=== PATIENT | male | born 1950 | race Asian ===

== ENCOUNTER 2021-01-25 12:44 | Outpatient (REF) | payer MEDICARE, SELFPAY ==
[2021-01-25 13:29] LABS: MANUAL DIFF FLAG NO
[2021-01-25 13:31] LABS: Basophils Percent Auto 0.5 % (0-2); Eosinophils Absolute Auto 0.3 X10*3/uL (0.0-0.4); Eosinophils Percent Auto 7.3 % (0-4); Hematocrit 38.9 % (42-52); Hemoglobin 12.7 g/dl (14.0-18.0); Imm Gran Abs Auto 0.01 X10*3/uL (0.00-0.03); Imm Gran Pct Auto 0.3 % (0.0-0.4); Lymphocytes Absolute Auto 1.2 X10*3/uL (1.2-4.9); Mean Corpuscular HGB Conc 32.6 g/dl (31.0-36.0); Mean Corpuscular Hemoglobin 28.6 pg (27.0-33.0); Mean Corpuscular Volume 87.6 fL (80-98); Monocytes Absolute Auto 0.4 X10*3/uL (0.1-1.2); Monocytes Percent Auto 9.5 % (2-11); Neutrophils Absolute Auto 1.8 X10*3/uL (2.0-8.3); Neutrophils Percent Auto 49.4 % (45-73); Platelet Count 177 X10*3/uL (160-400); Red Blood Count 4.44 X10*6/uL (4.60-5.80); Red Cell Distribution Width 13.7 % (11.0-16.0); White Blood Count 3.7 X10*3/uL (4.8-10.8)
[2021-01-25 13:53] LABS: Alanine Aminotransferase 31 U/L (0-40); Albumin Level 4.3 g/dL (3.5-5.0); Alkaline Phosphatase 74 U/L (39-117); Anion Gap 10 (12-20); Aspartate Amino Transferase 28 U/L (5-37); Bilirubin Total 0.4 mg/dL (0.0-1.0); Blood Urea Nitrogen 16 mg/dL (9-16); Calcium 9.3 mg/dL (8.4-10.2); Carbon Dioxide 28 mmol/L (22-29); Chloride 109 mmol/L (96-108); Cholesterol 119 mg/dL; Estimated Glomerular Filt Rate > 60; Glucose Fasting 97 mg/dL (60-99); HDL Cholesterol 46 mg/dL; LDL Cholesterol Calculated 54 mg/dl; Potassium 4.5 mmol/L (3.3-5.1); Sodium 142 mmol/L (135-145); Total Protein 6.7 g/dL (6.5-8.0); Triglycerides 98 mg/dL
[2021-01-25 14:00] LABS: Glucose Urine UA NEG (NEG); Leukocyte Esterase Urine NEG (NEG); Nitrite Urine NEG (NEG); Specific Gravity - Urine 1.025 (1.005-1.025); Urine Blood NEG (NEG); Urine Ketones NEG (NEG); Urine Protein NEG (NEG-TRACE)
[2021-01-25 14:03] LABS: Appearance Urine CLEAR; Color Urine YELLOW
[2021-01-25 14:14] LABS: TSH reflex Free T4 1.52 uIU/mL (0.32-4.0)
[2021-01-25 14:16] LABS: Creatinine Urine 157.28 mg/dL; Microalbum/Creatinine Ratio Ur 19.7 ug/mg cr
== END 2021-01-25 12:45 | disposition home or self-care (01) ==
LOC: HO.WFDLDS 12:44
PROVIDERS: PCP Family Medicine; Visit Provider Family Medicine
DX: Z00.00 Encounter for general adult medical examination without abnormal findings (principal); I10 Essential (primary) hypertension
CPT/HCPCS: 36415; 80053; 80061; 81003; 82043; 84443; 85025

== ENCOUNTER 2021-03-31 14:23 | Outpatient (REF) | payer MEDICARE, SELFPAY ==
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
== END 2021-03-31 14:24 | disposition home or self-care (01) ==
LOC: HO.SH 14:23
PROVIDERS: Visit Provider Family Medicine
DX: H90.3 Sensorineural hearing loss, bilateral (principal); H93.13 Tinnitus, bilateral
CPT/HCPCS: 92557; 92567

== ENCOUNTER 2021-05-25 12:25 | Outpatient (REF) | payer MEDICARE, SELFPAY ==
[2021-05-25 13:55] LABS: MANUAL DIFF FLAG NO
[2021-05-25 13:59] LABS: Basophils Percent Auto 0.5 % (0-2); Eosinophils Absolute Auto 0.2 X10*3/uL (0.0-0.4); Hematocrit 42.8 % (42-52); Hemoglobin 13.5 g/dl (14.0-18.0); Imm Gran Abs Auto 0.01 X10*3/uL (0.00-0.03); Imm Gran Pct Auto 0.2 % (0.0-0.4); Lymphocytes Absolute Auto 1.4 X10*3/uL (1.2-4.9); Lymphocytes Percent Auto 33.3 % (20-40); Mean Corpuscular HGB Conc 31.5 g/dl (31.0-36.0); Mean Corpuscular Hemoglobin 28.2 pg (27.0-33.0); Mean Corpuscular Volume 89.5 fL (80-98); Mean Platelet Volume 10.1 fL (9.4-12.4); Monocytes Absolute Auto 0.5 X10*3/uL (0.1-1.2); Monocytes Percent Auto 11.2 % (2-11); Neutrophils Absolute Auto 2.1 X10*3/uL (2.0-8.3); Neutrophils Percent Auto 50.8 % (45-73); Platelet Count 252 X10*3/uL (160-400); Red Blood Count 4.78 X10*6/uL (4.60-5.80); Red Cell Distribution Width 13.7 % (11.0-16.0); White Blood Count 4.2 X10*3/uL (4.8-10.8)
[2021-05-25 14:49] LABS: Prostate Specific Antigen Scr 2.33 ng/mL (<0.05-4.0)
== END 2021-05-25 12:26 | disposition home or self-care (01) ==
LOC: HO.WFDLDS 12:25
PROVIDERS: Visit Provider Family Medicine
DX: Z00.00 Encounter for general adult medical examination without abnormal findings (principal); Z12.5 Encounter for screening for malignant neoplasm of prostate; G25.0 Essential tremor; E55.9 Vitamin D deficiency, unspecified; D64.9 Anemia, unspecified
CPT/HCPCS: 36415; 82306; 84153; 85025

== ENCOUNTER 2021-07-22 12:34 | Outpatient (REF) | payer MEDICARE, SELFPAY ==
[2021-07-22 13:59] LABS: MANUAL DIFF FLAG NO
[2021-07-22 14:03] LABS: Basophils Percent Auto 0.8 % (0-2); Eosinophils Absolute Auto 0.2 X10*3/uL (0.0-0.4); Eosinophils Percent Auto 4.2 % (0-4); Hemoglobin 13.4 g/dl (14.0-18.0); Imm Gran Abs Auto 0.01 X10*3/uL (0.00-0.03); Imm Gran Pct Auto 0.2 % (0.0-0.4); Lymphocytes Absolute Auto 1.2 X10*3/uL (1.2-4.9); Lymphocytes Percent Auto 23.7 % (20-40); Mean Corpuscular HGB Conc 32.7 g/dl (31.0-36.0); Mean Corpuscular Hemoglobin 29.6 pg (27.0-33.0); Mean Corpuscular Volume 90.5 fL (80.0-98.0); Mean Platelet Volume 10.4 fL (9.4-12.4); Monocytes Absolute Auto 0.5 X10*3/uL (0.1-1.2); Monocytes Percent Auto 9.8 % (2-11); Neutrophils Absolute Auto 3.2 x10*3/uL (2.0-8.3); Neutrophils Percent Auto 61.3 % (45-73); Platelet Count 186 X10*3/uL (160-400); Red Blood Count 4.53 X10*6/uL (4.60-5.80); Red Cell Distribution Width 13.9 % (11.0-16.0); White Blood Count 5.2 X10*3/uL (4.8-10.8)
[2021-07-22 14:49] LABS: Vitamin D 25-OH Total 46.5 ng/mL (>30)
== END 2021-07-22 12:35 | disposition home or self-care (01) ==
LOC: HO.WFDLDS 12:34
PROVIDERS: Visit Provider Family Medicine
DX: Z00.00 Encounter for general adult medical examination without abnormal findings (principal); E55.9 Vitamin D deficiency, unspecified
CPT/HCPCS: 36415; 82306; 85025

== ENCOUNTER 2021-10-05 14:43 | Outpatient (REF) | payer MEDICARE, SELFPAY ==
--- NOTE | ~2021-10-05 | XR_ITS ---
EXAMINATION: XR RIBS, RIGHT CLINICAL INFORMATION: Pleurodynia COMPARISON: None TECHNIQUE: 4 views of the right ribs were obtained. FINDINGS: No focal consolidation. No pneumothorax. Trachea is midline. Cardiac mediastinal silhouette is not enlarged. No large pleural effusion. Atherosclerotic calcifications of the aorta. Soft tissues are unremarkable. Right chest wall electronic device with leads coursing cranially likely representing deep brain stimulator. Degenerative changes of the thoracolumbar spine. No acute visualized right-sided rib fractures. Surgical anchor in the right humeral head. Severe degenerative changes of the right glenohumeral joint. XR/XR ribs RT min 3V w CXR1V IMPRESSION: 1. No acute cardiac pulmonary process. 2. No acute visualize right-sided rib fractures.
== END 2021-10-05 14:44 | disposition home or self-care (01) ==
LOC: HO.XRAY 14:43
PROVIDERS: PCP Family Medicine; Visit Provider Hospitalist
DX: R07.81 Pleurodynia (principal); Z91.81 History of falling
CPT/HCPCS: 71101

== ENCOUNTER 2022-03-02 11:16 | Outpatient (REF) | payer MEDICARE, SELFPAY ==
[2022-03-02 14:03] LABS: MANUAL DIFF FLAG NO
[2022-03-02 14:07] LABS: Basophils Percent Auto 0.7 % (0-2); Eosinophils Absolute Auto 0.1 X10*3/uL (0.0-0.4); Eosinophils Percent Auto 3.2 % (0-4); Hemoglobin 13.6 g/dl (14.0-18.0); Imm Gran Abs Auto 0.01 X10*3/uL (0.00-0.03); Imm Gran Pct Auto 0.2 % (0.0-0.4); Lymphocytes Percent Auto 24.6 % (20-40); Mean Corpuscular HGB Conc 33.2 g/dl (31.0-36.0); Mean Corpuscular Hemoglobin 30.1 pg (27.0-33.0); Mean Corpuscular Volume 90.7 fL (80.0-98.0); Mean Platelet Volume 10.6 fL (9.4-12.4); Monocytes Absolute Auto 0.4 X10*3/uL (0.1-1.2); Monocytes Percent Auto 10.7 % (2-11); Neutrophils Absolute Auto 2.4 x10*3/uL (2.0-8.3); Neutrophils Percent Auto 60.6 % (45-73); Platelet Count 179 X10*3/uL (160-400); Red Blood Count 4.52 X10*6/uL (4.60-5.80); Red Cell Distribution Width 13.2 % (11.0-16.0)
[2022-03-02 14:42] LABS: Alanine Aminotransferase 25 U/L (0-40); Albumin Level 4.3 g/dL (3.5-5.0); Alkaline Phosphatase 72 U/L (39-117); Anion Gap 10 (12-20); Aspartate Amino Transferase 24 U/L (5-37); Bilirubin Total 0.6 mg/dL (0.0-1.0); Blood Urea Nitrogen 22 mg/dL (9-16); Calcium 9.1 mg/dL (8.4-10.2); Carbon Dioxide 27 mmol/L (22-29); Chloride 107 mmol/L (96-108); Cholesterol 138 mg/dL; Estimated Glomerular Filt Rate > 60; Glucose Fasting 76 mg/dL (60-99); HDL Cholesterol 48 mg/dL; Iron 87 mcg/dL (45-160); LDL Cholesterol Calculated 71 mg/dl; Percent Iron Saturation 24 % (15-50); Potassium 4.1 mmol/L (3.3-5.1); Sodium 140 mmol/L (135-145); Total Iron Binding Capacity 363 mcg/dL (228-428); Total Protein 6.8 g/dL (6.5-8.0); Triglycerides 95 mg/dL; Unsaturated Iron Binding 276 ug/dL
[2022-03-02 15:02] LABS: Ferritin 12 ng/mL (20-250)
[2022-03-02 15:15] LABS: Folate 17.8 ng/mL (> or = 4.0); Vitamin B12 1095 pg/mL (200-900)
== END 2022-03-02 11:17 | disposition home or self-care (01) ==
LOC: HO.WFDLDS 11:16
PROVIDERS: Visit Provider Nurse Practitioner Family
DX: Z00.00 Encounter for general adult medical examination without abnormal findings (principal); E66.3 Overweight; D64.9 Anemia, unspecified
CPT/HCPCS: 36415; 80053; 80061; 82607; 82728; 82746; 83540; 85025

== ENCOUNTER 2022-03-24 11:24 | Outpatient (REF) | payer MEDICARE, SELFPAY ==
[2022-03-24 14:33] LABS: MANUAL DIFF FLAG NO
[2022-03-24 14:43] LABS: Basophils Percent Auto 0.7 % (0-2); Eosinophils Absolute Auto 0.2 X10*3/uL (0.0-0.4); Eosinophils Percent Auto 3.9 % (0-4); Hematocrit 41.8 % (42.0-52.0); Hemoglobin 13.5 g/dl (14.0-18.0); Immature Retic Fraction 12.5 % (2.3-13.4); Lymphocytes Absolute Auto 1.2 X10*3/uL (1.2-4.9); Lymphocytes Percent Auto 26.4 % (20-40); Mean Corpuscular HGB Conc 32.3 g/dl (31.0-36.0); Mean Corpuscular Hemoglobin 29.5 pg (27.0-33.0); Mean Corpuscular Volume 91.3 fL (80.0-98.0); Mean Platelet Volume 10.6 fL (9.4-12.4); Monocytes Absolute Auto 0.5 X10*3/uL (0.1-1.2); Neutrophils Absolute Auto 2.7 x10*3/uL (2.0-8.3); Platelet Count 186 X10*3/uL (160-400); Red Blood Count 4.58 X10*6/uL (4.60-5.80); Red Cell Distribution Width 13.3 % (11.0-16.0); Retic HGB Equivalent 36.4 pg (30.0-35.0); Reticulocyte Percent 0.9 % (0.5-1.8); Reticulocytes Absolute 0.043 X10*6/uL (0.026-0.095); White Blood Count 4.6 X10*3/uL (4.8-10.8)
== END 2022-03-24 11:25 | disposition home or self-care (01) ==
LOC: HO.WFDLDS 11:24
PROVIDERS: Visit Provider Family Medicine
DX: Z00.00 Encounter for general adult medical examination without abnormal findings (principal); D64.9 Anemia, unspecified
CPT/HCPCS: 36415; 85025; 85045

== ENCOUNTER → 2022-04-06 14:59 | Outpatient (BNV) | payer MEDICARE, SELFPAY | PROVIDERS: PCP Family Medicine; Referring Provider Family Medicine; Visit Provider Internal Medicine | DX: D64.9 Anemia, unspecified (principal) | CPT/HCPCS: 99203; 99213 ==

== ENCOUNTER 2022-08-03 12:25 | Outpatient (REF) | payer MEDICARE, SELFPAY ==
[2022-08-03 15:38] LABS: Influenza A PCR NEGATIVE (Negative); Influenza B PCR NEGATIVE (Negative); Resp Syncy Virus RNA Qual PCR NEGATIVE (Negative); SARS COV2 PCR INHOUSE NEGATIVE (Negative)
== END 2022-08-03 12:26 | disposition home or self-care (01) ==
LOC: HO.LAB 12:25
PROVIDERS: Visit Provider Family Medicine
DX: Z20.822 Contact with and (suspected) exposure to COVID-19 (principal); R09.89 Other specified symptoms and signs involving the circulatory and respiratory systems
CPT/HCPCS: 0241U

== ENCOUNTER 2022-08-17 16:02 | Outpatient (REF) | payer MEDICARE, SELFPAY ==
[2022-08-18 12:57] LABS: Influenza A PCR NEGATIVE (Negative); Influenza B PCR NEGATIVE (Negative); Resp Syncy Virus RNA Qual PCR NEGATIVE (Negative); SARS COV2 PCR INHOUSE NEGATIVE (Negative)
== END 2022-08-17 16:03 | disposition home or self-care (01) ==
LOC: HO.LAB 16:02
PROVIDERS: Visit Provider Family Medicine
DX: Z20.822 Contact with and (suspected) exposure to COVID-19 (principal)
CPT/HCPCS: 0241U

== ENCOUNTER 2022-12-12 12:46 | Outpatient (REF) | payer MEDICARE, SELFPAY ==
--- NOTE | ~2022-12-12 | XR_ITS ---
EXAMINATION: 1. STANDING AP RADIOGRAPHS OF BOTH KNEES 2. LATERAL AND PATELLAR SUNRISE RADIOGRAPHS OF THE RIGHT KNEE CLINICAL INFORMATION: Pain COMPARISON: None TECHNIQUE: Standing AP radiographs of both knees were obtained in addition to lateral and patellar sunrise views of the right knee. FINDINGS: Patient is status post right total knee arthroplasty. Components are in expected orientation. There is no periprosthetic fracture identified. No right-sided suprapatellar joint effusion noted. AP view of the left knee demonstrates mild narrowing of the medial and lateral joint space heights and mild chondrocalcinosis. XR/XR knee RT 2V IMPRESSION: 1. Unremarkable post arthroplasty radiographs of the right knee. 2. Mild degenerative changes of the left knee.
--- NOTE | ~2022-12-12 | XR_ITS ---
EXAMINATION: 1. STANDING AP RADIOGRAPHS OF BOTH KNEES 2. LATERAL AND PATELLAR SUNRISE RADIOGRAPHS OF THE RIGHT KNEE CLINICAL INFORMATION: Pain COMPARISON: None TECHNIQUE: Standing AP radiographs of both knees were obtained in addition to lateral and patellar sunrise views of the right knee. FINDINGS: Patient is status post right total knee arthroplasty. Components are in expected orientation. There is no periprosthetic fracture identified. No right-sided suprapatellar joint effusion noted. AP view of the left knee demonstrates mild narrowing of the medial and lateral joint space heights and mild chondrocalcinosis. XR/XR knee standing BI IMPRESSION: 1. Unremarkable post arthroplasty radiographs of the right knee. 2. Mild degenerative changes of the left knee.
== END 2022-12-12 12:47 | disposition home or self-care (01) ==
LOC: HO.HOSX 12:46
PROVIDERS: Visit Provider Orthopaedic Surgery
DX: M25.461 Effusion, right knee (principal); D36.10 Benign neoplasm of peripheral nerves and autonomic nervous system, unspecified; Z96.651 Presence of right artificial knee joint
CPT/HCPCS: 73560; 73565; 99202

== ENCOUNTER 2023-02-03 09:31 | Outpatient (REF) | payer MEDICARE, SELFPAY | END 2023-02-03 09:32 | disposition home or self-care (01) | LOC: HO.HOSX 09:31 | PROVIDERS: PCP Family Medicine; Visit Provider Orthopaedic Surgery | DX: M16.11 Unilateral primary osteoarthritis, right hip (principal); R20.2 Paresthesia of skin | CPT/HCPCS: 72170; 73501; 73502; 99212 ==

== ENCOUNTER 2023-02-27 14:27 | Outpatient (AMB) | payer MEDICARE, SELFPAY ==
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
[2023-02-27 14:31] VITALS: BP 133/69; PULSE 65; RESP 14; BMI 29.9
== END 2023-02-27 15:33 | disposition home or self-care (01) ==
PROVIDERS: PCP Family Medicine; Visit Provider Internal Medicine
DX: Z98.890 Other specified postprocedural states (principal); R20.0 Anesthesia of skin; M25.461 Effusion, right knee; Z96.651 Presence of right artificial knee joint; M25.561 Pain in right knee; R29.898 Other symptoms and signs involving the musculoskeletal system
CPT/HCPCS: 99204

== ENCOUNTER → 2023-02-27 14:27 | Outpatient (BNVA) | payer MEDICARE, SELFPAY | PROVIDERS: PCP Family Medicine; Visit Provider Internal Medicine | DX: M25.461 Effusion, right knee (principal); M25.561 Pain in right knee; R20.0 Anesthesia of skin; R29.898 Other symptoms and signs involving the musculoskeletal system; Z98.890 Other specified postprocedural states; Z96.651 Presence of right artificial knee joint | CPT/HCPCS: 99202 ==

== ENCOUNTER 2023-03-02 12:25 | Outpatient (AMB) | payer MEDICARE, SELFPAY ==
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
== END 2023-03-02 14:06 | disposition home or self-care (01) ==
PROVIDERS: PCP Family Medicine; Visit Provider Orthopaedic Surgery
DX: S82.001A Unspecified fracture of right patella, initial encounter for closed fracture (principal); Z96.651 Presence of right artificial knee joint; M16.11 Unilateral primary osteoarthritis, right hip; M25.461 Effusion, right knee; R20.0 Anesthesia of skin
CPT/HCPCS: 99213

== ENCOUNTER → 2023-03-02 12:25 | Outpatient (BNVA) | payer MEDICARE, SELFPAY | PROVIDERS: PCP Family Medicine; Visit Provider Orthopaedic Surgery ==

== ENCOUNTER 2023-03-06 15:54 | Outpatient (AMB) | payer MEDICARE, SELFPAY ==
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
[2023-03-06 16:09] VITALS: BP 116/58; PULSE 74; RESP 12; TEMP 36.9; O2SAT 97; BMI 29.6
== END 2023-03-06 17:05 | disposition home or self-care (01) ==
PROVIDERS: Visit Provider Family Medicine
DX: Z00.00 Encounter for general adult medical examination without abnormal findings (principal); K21.9 Gastro-esophageal reflux disease without esophagitis; I25.10 Atherosclerotic heart disease of native coronary artery without angina pectoris; Z98.890 Other specified postprocedural states; H91.93 Unspecified hearing loss, bilateral; M25.561 Pain in right knee
CPT/HCPCS: 99397

== ENCOUNTER 2023-03-13 11:47 | Outpatient (REF) | payer MEDICARE, SELFPAY ==
[2023-03-13 14:16] LABS: MANUAL DIFF FLAG NO
[2023-03-13 14:32] LABS: Basophils Percent Auto 1.2 % (0-2); Eosinophils Absolute Auto 0.2 X10*3/uL (0.0-0.4); Eosinophils Percent Auto 6.1 % (0-4); Hematocrit 41.2 % (42.0-52.0); Hemoglobin 13.6 g/dl (14.0-18.0); Lymphocytes Absolute Auto 1.2 X10*3/uL (1.2-4.9); Mean Corpuscular Hemoglobin 31.1 pg (27.0-33.0); Mean Corpuscular Volume 94.1 fL (80.0-98.0); Monocytes Absolute Auto 0.3 X10*3/uL (0.1-1.2); Monocytes Percent Auto 9.3 % (2-11); Neutrophils Absolute Auto 1.6 x10*3/uL (2.0-8.3); Neutrophils Percent Auto 47.4 % (45-73); Platelet Count 184 X10*3/uL (160-400); Red Blood Count 4.38 X10*6/uL (4.60-5.80); Red Cell Distribution Width 12.3 % (11.0-16.0); White Blood Count 3.4 X10*3/uL (4.8-10.8)
[2023-03-13 14:56] LABS: Alanine Aminotransferase 26 U/L (0-40); Alkaline Phosphatase 54 U/L (39-117); Anion Gap 9 (12-20); Aspartate Amino Transferase 24 U/L (5-37); Bilirubin Total 0.5 mg/dL (0.0-1.0); Blood Urea Nitrogen 23 mg/dL (9-16); Calcium 9.2 mg/dL (8.4-10.2); Carbon Dioxide 29 mmol/L (22-29); Chloride 106 mmol/L (96-108); Cholesterol 126 mg/dL; Estimated Glomerular Filt Rate > 60; Glucose Fasting 93 mg/dL (60-99); HDL Cholesterol 41 mg/dL; Iron 81 mcg/dL (45-160); LDL Cholesterol Calculated 66 mg/dl; Percent Iron Saturation 31 % (15-50); Sodium 140 mmol/L (135-145); Total Iron Binding Capacity 264 mcg/dL (228-428); Total Protein 6.5 g/dL (6.5-8.0); Triglycerides 97 mg/dL; Unsaturated Iron Binding 183 ug/dL
[2023-03-13 15:05] LABS: Appearance Urine Clear; Color Urine Yellow; Glucose Urine UA Negative (Negative); Leukocyte Esterase Urine Negative (Negative); Nitrite Urine Negative (Negative); PH 6.5 (5.0-9.0); Urine Blood Negative (Negative); Urine Ketones Negative (Negative); Urine Protein Negative (Neg-Trace)
[2023-03-13 15:06] LABS: TSH reflex Free T4 2.22 uIU/mL (0.32-4.0); Vitamin D 25-OH Total 62.3 ng/mL (>30)
[2023-03-13 15:22] LABS: Folate 11.6 ng/mL (> or = 4.0); Vitamin B12 703 pg/mL (200-900)
[2023-03-13 16:04] LABS: Creatinine Urine 170.46 mg/dL; Microalbum/Creatinine Ratio Ur 7.6 ug/mg cr
== END 2023-03-13 11:48 | disposition home or self-care (01) ==
LOC: HO.WFDLDS 11:47
PROVIDERS: Visit Provider Family Medicine
DX: Z00.00 Encounter for general adult medical examination without abnormal findings (principal); Z12.5 Encounter for screening for malignant neoplasm of prostate; E55.9 Vitamin D deficiency, unspecified; I10 Essential (primary) hypertension; E53.8 Deficiency of other specified B group vitamins; D64.9 Anemia, unspecified
CPT/HCPCS: 36415; 80053; 80061; 81003; 82043; 82306; 82607; 82746; 83540; 84153; 84443; 85025

== ENCOUNTER 2023-03-21 12:57 | Outpatient (AMB) | payer MEDICARE, SELFPAY ==
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
[2023-03-21 13:05] VITALS: BP 120/70; PULSE 62; RESP 20; TEMP 37.1; O2SAT 95; BMI 29.2
== END 2023-03-21 14:36 | disposition home or self-care (01) ==
PROVIDERS: PCP Family Medicine; Visit Provider Nurse Practitioner Family
DX: K12.0 Recurrent oral aphthae (principal); B35.6 Tinea cruris
CPT/HCPCS: 99213

== ENCOUNTER 2023-03-30 12:16 | Outpatient (REF) | payer MEDICARE, SELFPAY | END 2023-03-30 12:17 | disposition home or self-care (01) | LOC: HO.HOSX 12:16 | PROVIDERS: Visit Provider Orthopaedic Surgery | DX: Z13.89 Encounter for screening for other disorder (principal) ==

== ENCOUNTER 2023-03-30 16:19 | Outpatient (AMB) | payer MEDICARE, SELFPAY ==
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
[2023-03-30 16:25] VITALS: BP 116/68; PULSE 67; RESP 13; TEMP 36.2; O2SAT 98; BMI 28.8
== END 2023-03-30 17:18 | disposition home or self-care (01) ==
PROVIDERS: PCP Family Medicine; Visit Provider Family Medicine
DX: D64.9 Anemia, unspecified (principal); E78.5 Hyperlipidemia, unspecified; I25.10 Atherosclerotic heart disease of native coronary artery without angina pectoris; K59.00 Constipation, unspecified
CPT/HCPCS: 99213

== ENCOUNTER 2023-05-19 11:44 | Outpatient (AMB) | payer MEDICARE, SELFPAY ==
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
[2023-05-19 12:08] VITALS: BMI 28.8
== END 2023-05-19 12:43 | disposition home or self-care (01) ==
PROVIDERS: PCP Family Medicine; Visit Provider Orthopaedic Surgery
DX: M25.561 Pain in right knee (principal); M16.11 Unilateral primary osteoarthritis, right hip; M25.461 Effusion, right knee; R20.0 Anesthesia of skin
CPT/HCPCS: 99214

== ENCOUNTER 2023-05-19 11:44 | Outpatient (REF) | payer MEDICARE, SELFPAY ==
--- NOTE | ~2023-05-19 | XR_ITS ---
EXAMINATION: STANDING AP RADIOGRAPHS OF BOTH KNEES LATERAL AND PATELLAR SUNRISE RADIOGRAPHS OF THE RIGHT KNEE CLINICAL INFORMATION: Pain COMPARISON: 12/12/2022 TECHNIQUE: Standing AP radiographs of both knees were obtained in addition to lateral and patellar sunrise views of the right knee. FINDINGS: Status post right total knee arthroplasty. Hardware appears intact. Alignment maintained. Mild degenerative changes in the medial and lateral compartments of the left knee again seen with joint space narrowing and chondrocalcinosis. Small right joint effusion. XR/XR knee RT 2V IMPRESSION: Status post right total knee arthroplasty. Hardware appears intact. Mild degenerative changes left knee. Small right joint effusion.
--- NOTE | ~2023-05-19 | XR_ITS ---
EXAMINATION: STANDING AP RADIOGRAPHS OF BOTH KNEES LATERAL AND PATELLAR SUNRISE RADIOGRAPHS OF THE RIGHT KNEE CLINICAL INFORMATION: Pain COMPARISON: 12/12/2022 TECHNIQUE: Standing AP radiographs of both knees were obtained in addition to lateral and patellar sunrise views of the right knee. FINDINGS: Status post right total knee arthroplasty. Hardware appears intact. Alignment maintained. Mild degenerative changes in the medial and lateral compartments of the left knee again seen with joint space narrowing and chondrocalcinosis. Small right joint effusion. XR/XR knee standing BI IMPRESSION: Status post right total knee arthroplasty. Hardware appears intact. Mild degenerative changes left knee. Small right joint effusion.
== END 2023-05-19 11:45 | disposition home or self-care (01) ==
LOC: HO.HOSX 11:44
PROVIDERS: PCP Family Medicine; Visit Provider Orthopaedic Surgery
DX: T84.84XA Pain due to internal orthopedic prosthetic devices, implants and grafts, initial encounter (principal); M25.461 Effusion, right knee; R20.0 Anesthesia of skin; M16.11 Unilateral primary osteoarthritis, right hip; Z96.651 Presence of right artificial knee joint
CPT/HCPCS: 73560; 73565; 99212

== ENCOUNTER 2023-06-23 10:01 | Outpatient (AMB) | payer MEDICARE, SELFPAY ==
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
[2023-06-23 10:09] VITALS: PULSE 57; RESP 12; O2SAT 94; BMI 28.8
== END 2023-06-23 10:49 | disposition home or self-care (01) ==
PROVIDERS: PCP Family Medicine; Visit Provider Internal Medicine
DX: Z96.651 Presence of right artificial knee joint (principal); M25.561 Pain in right knee; G89.29 Other chronic pain
CPT/HCPCS: 99213

== ENCOUNTER → 2023-06-23 10:01 | Outpatient (BNVA) | payer MEDICARE, SELFPAY | PROVIDERS: PCP Family Medicine; Visit Provider Internal Medicine | DX: M25.561 Pain in right knee (principal); G89.29 Other chronic pain; Z96.651 Presence of right artificial knee joint | CPT/HCPCS: 99212 ==

== ENCOUNTER 2023-07-05 12:18 | Outpatient (AMB) | payer MEDICARE, SELFPAY ==
[2023-07-05 12:22] VITALS: BP 122/66; PULSE 65; RESP 16; TEMP 36.8; O2SAT 96; BMI 28.8
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
== END 2023-07-05 13:43 | disposition home or self-care (01) ==
PROVIDERS: PCP Family Medicine; Visit Provider Nurse Practitioner Family
DX: R68.89 Other general symptoms and signs (principal)
CPT/HCPCS: 99213

== ENCOUNTER 2023-07-05 14:27 | Outpatient (REF) | payer MEDICARE, SELFPAY ==
[2023-07-05 16:17] LABS: Influenza A PCR NEGATIVE (Negative); Influenza B PCR NEGATIVE (Negative); Resp Syncy Virus RNA Qual PCR NEGATIVE (Negative); SARS COV2 PCR INHOUSE NEGATIVE (Negative)
== END 2023-07-05 14:28 | disposition home or self-care (01) ==
LOC: HO.HMGCLNP 14:27
PROVIDERS: Visit Provider Nurse Practitioner Family
DX: Z11.52 Encounter for screening for COVID-19 (principal); R68.89 Other general symptoms and signs; Z20.822 Contact with and (suspected) exposure to COVID-19
CPT/HCPCS: 0241U

== ENCOUNTER 2023-07-11 14:58 | Outpatient (AMB) | payer MEDICARE, SELFPAY ==
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
[2023-07-11 15:07] VITALS: BP 120/72; PULSE 72; RESP 16; TEMP 36.6; O2SAT 96; BMI 28.5
== END 2023-07-11 15:36 | disposition home or self-care (01) ==
PROVIDERS: PCP Family Medicine; Visit Provider Family Medicine
DX: R05.9 Cough, unspecified (principal); R09.89 Other specified symptoms and signs involving the circulatory and respiratory systems; I10 Essential (primary) hypertension
CPT/HCPCS: 99213

== ENCOUNTER 2023-07-11 16:12 | Outpatient (REF) | payer MEDICARE, SELFPAY ==
--- NOTE | ~2023-07-11 | XR_ITS ---
EXAMINATION: XR CHEST 2 VIEW CLINICAL INFORMATION: Cough COMPARISON: 10/05/2021 TECHNIQUE: PA and lateral views of the chest obtained. FINDINGS: The lungs are clear. There are no pleural effusions. The cardiomediastinal silhouette is normal. Left humeral arthroplasty, and right chest wall conduction device are again evident. XR/XR chest 2V IMPRESSION: No acute disease.
== END 2023-07-11 16:13 | disposition home or self-care (01) ==
LOC: HO.HMGCX 16:12
PROVIDERS: PCP Family Medicine; Visit Provider Family Medicine
DX: R05.9 Cough, unspecified (principal); R09.89 Other specified symptoms and signs involving the circulatory and respiratory systems
CPT/HCPCS: 71046

== ENCOUNTER 2023-07-19 09:28 | Outpatient (AMB) | payer MEDICARE, SELFPAY ==
[2023-07-19 09:38] VITALS: BP 138/58; PULSE 63; TEMP 36.8; O2SAT 93; BMI 28.9
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
[2023-07-19 10:43] VITALS: O2SAT 94
== END 2023-07-19 11:19 | disposition home or self-care (01) ==
PROVIDERS: PCP Family Medicine; Visit Provider Family Medicine
DX: R09.89 Other specified symptoms and signs involving the circulatory and respiratory systems (principal); J32.9 Chronic sinusitis, unspecified; R05.9 Cough, unspecified; R68.89 Other general symptoms and signs
CPT/HCPCS: 99214

== ENCOUNTER 2023-07-26 13:31 | Outpatient (AMB) | payer MEDICARE, SELFPAY ==
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
[2023-07-26 13:36] VITALS: BP 116/60; PULSE 68; O2SAT 98; BMI 29.3
== END 2023-07-26 14:45 | disposition home or self-care (01) ==
PROVIDERS: PCP Family Medicine; Visit Provider Family Medicine
DX: R09.89 Other specified symptoms and signs involving the circulatory and respiratory systems (principal); R68.89 Other general symptoms and signs; R30.0 Dysuria
CPT/HCPCS: 81003; 99213

== ENCOUNTER 2023-07-26 14:15 | Outpatient (REF) | payer MEDICARE, SELFPAY ==
[2023-07-27 12:48] LABS: Appearance Urine Clear; Color Urine Yellow; Glucose Urine UA Negative (Negative); Leukocyte Esterase Urine Negative (Negative); Nitrite Urine Negative (Negative); PH 5.5 (5.0-9.0); Specific Gravity - Urine 1.025 (1.005-1.025); Urine Blood Negative (Negative); Urine Ketones Negative (Negative); Urine Protein Negative (Neg-Trace)
== END 2023-07-26 14:16 | disposition home or self-care (01) ==
LOC: HO.LAB 14:15
PROVIDERS: Visit Provider Family Medicine
DX: Z00.00 Encounter for general adult medical examination without abnormal findings (principal); R30.0 Dysuria
CPT/HCPCS: 81003; 87086

== ENCOUNTER 2023-08-25 15:07 | Outpatient (AMB) | payer MEDICARE, SELFPAY ==
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
== END 2023-08-25 16:22 | disposition home or self-care (01) ==
PROVIDERS: PCP Family Medicine; Visit Provider Nurse Practitioner Family
DX: R30.0 Dysuria (principal); N39.43 Post-void dribbling; Z13.9 Encounter for screening, unspecified
CPT/HCPCS: 99203

== ENCOUNTER → 2023-08-25 15:07 | Outpatient (BNVA) | payer MEDICARE, SELFPAY | PROVIDERS: PCP Family Medicine; Visit Provider Nurse Practitioner Family | DX: R30.0 Dysuria (principal); N39.43 Post-void dribbling | CPT/HCPCS: 51798; 81003; 99202 ==

== ENCOUNTER 2023-09-12 15:00 | Outpatient (AMB) | payer MEDICARE, SELFPAY ==
[2023-09-12 15:06] VITALS: BP 128/70; PULSE 63; O2SAT 94; BMI 31.0
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
[2023-09-12 18:30] VITALS: PULSE 89; O2SAT 95
== END 2023-09-12 15:43 | disposition home or self-care (01) ==
PROVIDERS: PCP Family Medicine; Referring Provider Family Medicine; Visit Provider Hospitalist
DX: R05.3 Chronic cough (principal); R06.09 Other forms of dyspnea; R09.02 Hypoxemia; D80.2 Selective deficiency of immunoglobulin A [IgA]; Z77.098 Contact with and (suspected) exposure to other hazardous, chiefly nonmedicinal, chemicals
CPT/HCPCS: 94618; 99204

== ENCOUNTER → 2023-09-12 15:00 | Outpatient (BNVA) | payer MEDICARE, SELFPAY | PROVIDERS: PCP Family Medicine; Referring Provider Family Medicine; Visit Provider Hospitalist | DX: R05.3 Chronic cough (principal); R06.09 Other forms of dyspnea; R09.02 Hypoxemia; D80.2 Selective deficiency of immunoglobulin A [IgA]; Z77.098 Contact with and (suspected) exposure to other hazardous, chiefly nonmedicinal, chemicals | CPT/HCPCS: 94618; 99202 ==

== ENCOUNTER 2023-10-17 10:07 | Outpatient (AMB) | payer MEDICARE, SELFPAY ==
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
[2023-10-17 10:13] VITALS: BP 130/72; PULSE 65; O2SAT 94; BMI 30.2
== END 2023-10-17 17:57 | disposition home or self-care (01) ==
PROVIDERS: PCP Family Medicine; Visit Provider Nurse Practitioner Family
DX: R60.0 Localized edema (principal)
CPT/HCPCS: 99215

== ENCOUNTER 2023-10-17 12:55 | Outpatient (REF) | payer MEDICARE, SELFPAY ==
--- NOTE | ~2023-10-17 | US_ITS ---
EXAMINATION: US VENOUS ULTRASOUND WITH DOPPLER LOWER EXTREMITY, LEFT CLINICAL INFORMATION: Localized edema. Evaluate for deep vein thrombosis. COMPARISON: None available. TECHNIQUE: Ultrasound of the deep veins is performed from the hip to the calf with compression sonography and color and pulse Doppler assessment. Spectral analysis with color-flow imaging is performed. FINDINGS: The common femoral vein is compressible and exhibits a normal phasic waveform; this suggests that the iliac veins are widely patent above. Within the proximal thigh, the visualized profunda femoris vein is normal. The examined greater saphenous vein and saphenofemoral junction are normal. Superficial femoral vein is patent in the proximal, mid and distal thigh. Popliteal vein is normal to the level of the trifurcation. On compression martin scale and color Doppler images, the visualized posterior tibial and peroneal veins of the calf are normal. No evidence of Singh's cyst. US/US venous duplex LE LT IMPRESSION: No evidence of deep vein thrombosis in the left lower extremity.
== END 2023-10-17 12:56 | disposition home or self-care (01) ==
LOC: HO.US 12:55
PROVIDERS: PCP Family Medicine; Visit Provider Nurse Practitioner Family
DX: R60.0 Localized edema (principal)
CPT/HCPCS: 93971

== ENCOUNTER 2023-10-18 15:29 | Outpatient (REF) | payer MEDICARE, SELFPAY ==
--- NOTE | ~2023-10-18 | US_ITS ---
EXAMINATION: US RETROPERITONEAL COMPLETE (RENAL) CLINICAL INFORMATION: Dysuria. COMPARISON: None available. TECHNIQUE: Real-time imaging of the kidneys and bladder. FINDINGS: RIGHT KIDNEY: 11.7 x 5.6 x 5.3 cm (SAG x AP x TRV). The kidney is normal in size, contour, and echogenicity. Renal cortical thickness is normal. No renal calculi or hydronephrosis. 2.4 cm simple cyst in the lower pole. No follow-up imaging is recommended. LEFT KIDNEY: 12.4 x 5.6 x 6.6 cm (SAG x AP x TRV). The kidney is normal in size, contour, and echogenicity. Renal cortical thickness is normal. No renal calculi or hydronephrosis. Thinly septated 7.0 cm Bosniak 2 cyst in the upper pole. 2.2 cm simple cyst in the mid kidney. No follow-up imaging is recommended BLADDER: Partially distended. Bilateral ureteral jets are demonstrated. Prevoid bladder volume is 74.3 mL. Postvoid bladder volume is 12.7 mL. The prostate volume is 36.7 mL. US/US retroperitoneal comp IMPRESSION: Prevoid bladder volume is 74 mL (the patient felt like his bladder was full). Prostate volume of 37 mL. No significant post void residual. No hydronephrosis.
== END 2023-10-18 15:30 | disposition home or self-care (01) ==
LOC: HO.US 15:29
PROVIDERS: PCP Family Medicine; Visit Provider Nurse Practitioner Family
DX: R30.0 Dysuria (principal); N39.43 Post-void dribbling
CPT/HCPCS: 76770

== ENCOUNTER 2023-10-20 12:59 | Outpatient (AMB) | payer MEDICARE, SELFPAY ==
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
[2023-10-20 13:04] VITALS: BP 152/82; BMI 30.2
[2023-10-20 13:37] VITALS: BP 120/60
== END 2023-10-20 13:52 | disposition home or self-care (01) ==
PROVIDERS: PCP Family Medicine; Visit Provider Nurse Practitioner Family
DX: R60.0 Localized edema (principal); I95.1 Orthostatic hypotension
CPT/HCPCS: 99215

== ENCOUNTER 2023-10-27 12:10 | Outpatient (REF) | payer MEDICARE, SELFPAY ==
[2023-10-27 14:37] LABS: MANUAL DIFF FLAG NO
[2023-10-27 14:42] LABS: Basophils Percent Auto 0.7 % (0-2); Eosinophils Absolute Auto 0.3 X10*3/uL (0.0-0.4); Eosinophils Percent Auto 6.7 % (0-4); Hematocrit 42.1 % (42.0-52.0); Hemoglobin 14.3 g/dl (14.0-18.0); Imm Gran Abs Auto 0.01 X10*3/uL (0.00-0.03); Imm Gran Pct Auto 0.2 % (0.0-0.4); Lymphocytes Absolute Auto 1.2 X10*3/uL (1.2-4.9); Lymphocytes Percent Auto 28.9 % (20-40); Mean Corpuscular Hemoglobin 30.8 pg (27.0-33.0); Mean Corpuscular Volume 90.5 fL (80.0-98.0); Mean Platelet Volume 10.5 fL (9.4-12.4); Monocytes Absolute Auto 0.4 X10*3/uL (0.1-1.2); Monocytes Percent Auto 9.4 % (2-11); Neutrophils Absolute Auto 2.2 x10*3/uL (2.0-8.3); Neutrophils Percent Auto 54.1 % (45-73); Platelet Count 157 X10*3/uL (160-400); Red Blood Count 4.65 X10*6/uL (4.60-5.80); Red Cell Distribution Width 13.4 % (11.0-16.0); White Blood Count 4.2 X10*3/uL (4.8-10.8)
[2023-10-27 14:54] LABS: Appearance Urine Clear; Color Urine Yellow; Glucose Urine UA Negative (Negative); Leukocyte Esterase Urine Trace (Negative); Nitrite Urine Negative (Negative); Specific Gravity - Urine 1.025 (1.005-1.025); UMIC TRIGGER UA YES; Urine Blood Negative (Negative); Urine Ketones Negative (Negative); Urine Protein Trace mg/dL (Neg-Trace)
[2023-10-27 15:00] LABS: Bacteria Urine 4+ (None Seen); Hyaline Casts Urine 0-2 /LPF (0-2); RBC Urine 0-2 /HPF (0-2); Squamous Epithelial Cell Urine 0-2 /HPF (0-2); WBC Urine 21-50 /HPF (0-5)
[2023-10-27 15:26] LABS: Alanine Aminotransferase 29 U/L (0-40); Alkaline Phosphatase 69 U/L (39-117); Anion Gap 12 (12-20); Aspartate Amino Transferase 19 U/L (5-37); Bilirubin Total 0.5 mg/dL (0.0-1.0); Blood Urea Nitrogen 19 mg/dL (9-16); Calcium 8.9 mg/dL (8.4-10.2); Carbon Dioxide 25 mmol/L (22-29); Chloride 108 mmol/L (96-108); Estimated Glomerular Filt Rate > 60; Glucose Random 69 mg/dL (60-115); Potassium 3.9 mmol/L (3.3-5.1); Sodium 141 mmol/L (135-145); Total Protein 6.8 g/dL (6.5-8.0)
[2023-10-27 15:27] LABS: Creatinine Urine 164.92 mg/dL; Microalbum/Creatinine Ratio Ur 25.4 ug/mg cr (<30)
[2023-11-02 12:43] LABS: Testosterone, Free 64.1 pg/mL (30.0-135.0); Testosterone, Total 475 ng/dL (250-1100)
== END 2023-10-27 12:11 | disposition home or self-care (01) ==
LOC: HO.WFDLDS 12:10
PROVIDERS: Referring Provider Nurse Practitioner Family; Visit Provider Family Medicine
DX: N39.43 Post-void dribbling (principal); R30.0 Dysuria; N40.0 Benign prostatic hyperplasia without lower urinary tract symptoms; I10 Essential (primary) hypertension; D64.9 Anemia, unspecified; Z12.5 Encounter for screening for malignant neoplasm of prostate
CPT/HCPCS: 36415; 80053; 81001; 82043; 82570; 84153; 84402; 84403; 85025; 87086; 87088; 87186

== ENCOUNTER 2023-10-30 14:50 | Outpatient (AMB) | payer MEDICARE, SELFPAY ==
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
[2023-10-30 14:54] VITALS: PULSE 68; O2SAT 94; BMI 29.3
== END 2023-10-30 15:25 | disposition home or self-care (01) ==
PROVIDERS: PCP Family Medicine; Visit Provider Hospitalist
DX: R05.3 Chronic cough (principal); R06.09 Other forms of dyspnea; R09.02 Hypoxemia; D80.2 Selective deficiency of immunoglobulin A [IgA]; Z77.098 Contact with and (suspected) exposure to other hazardous, chiefly nonmedicinal, chemicals
CPT/HCPCS: 99214

== ENCOUNTER → 2023-10-30 14:50 | Outpatient (BNVA) | payer MEDICARE, SELFPAY | PROVIDERS: PCP Family Medicine; Visit Provider Hospitalist | DX: R05.3 Chronic cough (principal); R06.09 Other forms of dyspnea; R09.02 Hypoxemia; D80.2 Selective deficiency of immunoglobulin A [IgA]; Z77.098 Contact with and (suspected) exposure to other hazardous, chiefly nonmedicinal, chemicals | CPT/HCPCS: 99212 ==

== ENCOUNTER 2023-11-06 15:05 | Outpatient (REF) | payer MEDICARE, SELFPAY ==
--- NOTE | ~2023-11-06 | US_ITS ---
EXAMINATION: US ALTON complete, US arterial duplex LE LT CLINICAL INFORMATION: Localized edema COMPARISON: None TECHNIQUE: Ankle pulse volume recordings, ankle pressure measurements and ankle brachial indices were obtained of the lower extremity arterial system bilaterally in addition to duplex Doppler techniques with wave form analysis and measurement of velocities in the left common femoral, profunda femoral, superficial femoral, popliteal, tibial and peroneal arteries. The study was performed only at rest. FINDINGS: RIGHT LE. THE RIGHT ANKLE-BRACHIAL INDEX IS: 1.19 2. SEGMENTAL PRESSURES (mmHg): Ankle: PT 157, DP 141 3. PVR WAVEFORMS: Ankle: Normal LEFT LE. THE LEFT ANKLE-BRACHIAL INDEX IS: 1.11 2. SEGMENTAL PRESSURES: Ankle: PT 147, DP 141 3. PVR WAVEFORMS: Ankle: Normal 4. DIRECT DUPLEX: Arteries are mildly calcified throughout the left lower extremity. Common femoral artery: 93 cm/s, Multiphasic Profunda femoris artery: 72 cm/s, biphasic Superficial femoral artery (proximal): 85 cm/s, Multiphasic Superficial femoral artery (mid): 95 cm/s, Multiphasic Superficial femoral artery (distal): 71 cm/s, Multiphasic Proximal Popliteal artery: 77 cm/s, Multiphasic Distal popliteal artery: 67 cm/s, Multiphasic Mid posterior tibial artery: 78 cm/s, Multiphasic Peroneal artery: 47 cm/s, Multiphasic Anterior tibial artery: 111 cm/sec, multiphasic US/US arterial duplex LE LT IMPRESSION: 1. There is no evidence of any hemodynamically significant left lower extremity arterial disease by pressure, waveform or duplex Doppler criteria at rest. 2. Normal ABIs bilaterally.
--- NOTE | ~2023-11-06 | US_ITS ---
EXAMINATION: US ALTON complete, US arterial duplex LE LT CLINICAL INFORMATION: Localized edema COMPARISON: None TECHNIQUE: Ankle pulse volume recordings, ankle pressure measurements and ankle brachial indices were obtained of the lower extremity arterial system bilaterally in addition to duplex Doppler techniques with wave form analysis and measurement of velocities in the left common femoral, profunda femoral, superficial femoral, popliteal, tibial and peroneal arteries. The study was performed only at rest. FINDINGS: RIGHT LE. THE RIGHT ANKLE-BRACHIAL INDEX IS: 1.19 2. SEGMENTAL PRESSURES (mmHg): Ankle: PT 157, DP 141 3. PVR WAVEFORMS: Ankle: Normal LEFT LE. THE LEFT ANKLE-BRACHIAL INDEX IS: 1.11 2. SEGMENTAL PRESSURES: Ankle: PT 147, DP 141 3. PVR WAVEFORMS: Ankle: Normal 4. DIRECT DUPLEX: Arteries are mildly calcified throughout the left lower extremity. Common femoral artery: 93 cm/s, Multiphasic Profunda femoris artery: 72 cm/s, biphasic Superficial femoral artery (proximal): 85 cm/s, Multiphasic Superficial femoral artery (mid): 95 cm/s, Multiphasic Superficial femoral artery (distal): 71 cm/s, Multiphasic Proximal Popliteal artery: 77 cm/s, Multiphasic Distal popliteal artery: 67 cm/s, Multiphasic Mid posterior tibial artery: 78 cm/s, Multiphasic Peroneal artery: 47 cm/s, Multiphasic Anterior tibial artery: 111 cm/sec, multiphasic US/US ALTON complete IMPRESSION: 1. There is no evidence of any hemodynamically significant left lower extremity arterial disease by pressure, waveform or duplex Doppler criteria at rest. 2. Normal ABIs bilaterally.
== END 2023-11-06 15:06 | disposition home or self-care (01) ==
LOC: HO.US 15:05
PROVIDERS: PCP Family Medicine; Visit Provider Nurse Practitioner Family
DX: R60.0 Localized edema (principal); Z03.89 Encounter for observation for other suspected diseases and conditions ruled out
CPT/HCPCS: 93923; 93926

== ENCOUNTER 2023-11-15 16:34 | Outpatient (REF) | payer MEDICARE, SELFPAY ==
--- NOTE | ~2023-11-15 | CT_ITS ---
EXAMINATION: CT CHEST WITHOUT CONTRAST CLINICAL INFORMATION: Hypoxemia COMPARISON: Chest x-ray on 02/21/2022 TECHNIQUE: Multidetector volumetric CT imaging of the chest was done. Axial MIP volume rendering provided. Sagittal and coronal reformatted images were obtained. This CT examination was performed using dose optimization techniques as appropriate, variously including the following: *Automated exposure control *Adjustment of mA and/or kV according to patient size (this includes techniques or standardized protocols for targeted exams where dose is matched to indication/reason for exam; i.e. extremities or head) *Use of iterative reconstruction technique DLP: 207 mGy-cm FINDINGS: LUNGS: There is marked asymmetric elevation of left hemidiaphragm. -Nodule #1 (Series 5, image 370): 4.9 mm solid nodule, anterior lateral pleural border of right middle lobe medial segment. Additional micronodules 2 mm or smaller in size are present. PLEURA: No pleural effusion or pneumothorax is seen. PERICARDIUM: No pericardial effusion is seen. MEDIASTINUM AND ELLIS: Inadequate evaluation of the mediastinal and hilar lymph nodes due to absence of IV contrast filling the surrounding blood vessels. TRACHEOBRONCHIAL TREE: Trachea and bilateral mainstem bronchi are patent. Mild bilateral lower lobe cylindrical bronchiectasis is seen. THORACIC AORTA: The thoracic aorta is normal in size with scattered atherosclerotic calcifications. CORONARY ARTERY CALCIFICATIONS: Marked PULMONARY ARTERIES: The main pulmonary arteries appear to be normal in size. CHEST WALL AND LOWER NECK: The subcutaneous and muscular chest wall are intact with no focal lesion. No abnormal mass lesion could be seen in the visualized lower neck. Right upper chest nerve stimulator device is seen. BONES: Left glenohumeral arthroplasty prostheses are partially visualized. Multilevel bilateral sharp thoracic spine syndesmophytes are present. No fracture or dislocation. No focal bone lesion diagnostic of metastatic disease could be seen in the thorax. VISUALIZED UPPER ABDOMEN: Bilateral adrenal glands are not enlarged. Large posterior left upper renal pole simple cyst is partially visualized measuring 7.0 cm in diameter in the visualized portion. CT/CT chest wo IV con IMPRESSION: 1. Marked asymmetric elevation of left hemidiaphragm, compatible with diaphragmatic eventration or paralysis. 2. 4.9 mm solid nodule, anterior lateral pleural border of right middle lobe medial segment. 3. Bilateral lower lobe mild cylindrical bronchiectasis. 4. Large posterior left upper renal pole simple cyst is partially visualized measuring 7.0 cm in diameter in the visualized portion. According to the UPDATED 2017 Fleischner Society recommendations, the advised follow-up imaging for solid nodules <6 mm in the middle/lower lobes is no routine follow up. Fleischner guidelines were followed.
== END 2023-11-15 16:35 | disposition home or self-care (01) ==
LOC: HO.CT 16:34
PROVIDERS: PCP Family Medicine; Visit Provider Hospitalist
DX: R09.02 Hypoxemia (principal); R06.00 Dyspnea, unspecified; Z77.098 Contact with and (suspected) exposure to other hazardous, chiefly nonmedicinal, chemicals
CPT/HCPCS: 71250

== ENCOUNTER 2023-11-29 15:05 | Outpatient (AMB) | payer MEDICARE, SELFPAY ==
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
== END 2023-11-29 15:56 | disposition home or self-care (01) ==
LOC: HO.HUSH 15:05
PROVIDERS: PCP Family Medicine; Visit Provider Nurse Practitioner Family
DX: N39.0 Urinary tract infection, site not specified (principal); N28.1 Cyst of kidney, acquired
CPT/HCPCS: 99214

== ENCOUNTER → 2023-11-29 15:05 | Outpatient (BNVA) | payer MEDICARE, SELFPAY | PROVIDERS: PCP Family Medicine; Visit Provider Nurse Practitioner Family | DX: N39.0 Urinary tract infection, site not specified (principal); N28.1 Cyst of kidney, acquired | CPT/HCPCS: 51798; 81003; 99212 ==

== ENCOUNTER 2023-12-18 14:30 | Outpatient (AMB) | payer MEDICARE, SELFPAY ==
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
== END 2023-12-18 15:14 | disposition home or self-care (01) ==
PROVIDERS: PCP Family Medicine; Visit Provider Orthopaedic Surgery
DX: M25.561 Pain in right knee (principal); Z96.651 Presence of right artificial knee joint
CPT/HCPCS: 99214

== ENCOUNTER → 2023-12-18 14:30 | Outpatient (BNVA) | payer MEDICARE, SELFPAY | PROVIDERS: PCP Family Medicine; Visit Provider Orthopaedic Surgery | DX: M25.561 Pain in right knee (principal); Z96.651 Presence of right artificial knee joint | CPT/HCPCS: 99212 ==

== ENCOUNTER 2024-01-11 15:32 | Outpatient (AMB) | payer MEDICARE, SELFPAY ==
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
[2024-01-11 15:37] VITALS: BP 134/68; PULSE 59; O2SAT 96; BMI 29.7
== END 2024-01-11 16:39 | disposition home or self-care (01) ==
PROVIDERS: PCP Family Medicine; Visit Provider Family Medicine
DX: M25.561 Pain in right knee (principal); G89.29 Other chronic pain; M54.50 Low back pain, unspecified; R47.1 Dysarthria and anarthria; F41.9 Anxiety disorder, unspecified; F32.A Depression, unspecified; G62.9 Polyneuropathy, unspecified
CPT/HCPCS: 99213

== ENCOUNTER 2024-01-16 15:35 | Outpatient (AMB) | payer MEDICARE, SELFPAY ==
[2024-01-16 15:36] VITALS: BMI 29.7
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
== END 2024-01-16 16:24 | disposition home or self-care (01) ==
PROVIDERS: PCP Family Medicine; Referring Provider Family Medicine; Visit Provider Surgery
DX: R10.31 Right lower quadrant pain (principal)
CPT/HCPCS: 99203

== ENCOUNTER → 2024-01-16 15:35 | Outpatient (BNVA) | payer MEDICARE, SELFPAY | PROVIDERS: PCP Family Medicine; Referring Provider Family Medicine; Visit Provider Surgery | DX: R10.31 Right lower quadrant pain (principal) | CPT/HCPCS: 99202 ==

== ENCOUNTER 2024-01-24 17:04 | Emergency (ER) | payer OTHER, SELFPAY ==
--- NOTE | ~2024-01-24 | CT_ITS ---
EXAMINATION: CT ABDOMEN AND PELVIS WITH CONTRAST CLINICAL INFORMATION: Right lower quadrant pain COMPARISON: Ultrasound kidney 10/18/2023 TECHNIQUE: Multidetector volumetric images were obtained from the superior aspect of the liver through the pubic symphysis following administration 85 mL of Omnipaque 350 intravenous contrast. Sagittal and coronal reformatted images were obtained on the technologist's workstation. Oral contrast: No This CT examination was performed using dose optimization techniques as appropriate, variously including the following: *Automated exposure control *Adjustment of mA and/or kV according to patient size (this includes techniques or standardized protocols for targeted exams where dose is matched to indication/reason for exam; i.e. extremities or head) *Use of iterative reconstruction technique DLP: 604 mGy-cm FINDINGS: LUNG BASES: There is bronchial thickening. There is left basilar atelectasis. There is a 3 mm right lower lobe pulmonary nodule (3:42). LIVER, GALLBLADDER, AND BILIARY TREE: The liver is enlarged at 18.4 cm. Attenuation and shape is normal.. No focal hepatic lesion or biliary ductal dilatation is present. The gallbladder is contracted with a thickened wall but is otherwise unremarkable with no evidence of radiopaque gallstones or obvious pericholecystic inflammatory changes. PANCREAS: Unremarkable. SPLEEN: The spleen is mildly enlarged at 12.7 cm. ADRENAL GLANDS: Unremarkable. KIDNEYS AND URETERS: The kidneys are normal in size, shape, and attenuation. No hydronephrosis, hydroureter, or calculi seen. No perinephric stranding. Bilateral multiple benign Bosniak class I renal cysts are noted, the largest measuring 7.4 cm in the left upper pole which require no additional imaging or follow-up. No solid renal masses are seen. BLADDER: Unremarkable. GASTROINTESTINAL TRACT: The small and large bowel are unremarkable. The appendix is unremarkable. ABDOMINAL WALL: Tiny periumbilical hernia seen containing only fat. LYMPH NODES: No retroperitoneal lymphadenopathy. VASCULAR: Calcific atherosclerotic changes are present in the aorta and iliofemoral vessels. There is no evidence of an abdominal aortic aneurysm. PELVIC VISCERA: There is mild BPH. Seminal vesicles appear normal. OSSEOUS STRUCTURES: Degenerative changes are present in the spine most marked at L4-L5 and L5-S1. CT/CT abdomen pelvis w IV con IMPRESSION: 1. A cause for the patient's right lower quadrant pain has not been found. 2. Incidental note made of bronchial thickening, 3 mm right lower lobe pulmonary nodule, mild hepatosplenomegaly, benign Bosniak class I renal cysts which need no additional imaging or follow-up, mild BPH and degenerative changes in the spine. Fleischner guidelines were followed.
[2024-01-24 17:18] VITALS: BP 116/71; PULSE 61; RESP 18; TEMP 36.6; O2SAT 95; BMI 30.5
[2024-01-24 17:34] LABS: MANUAL DIFF FLAG NO
[2024-01-24 17:38] LABS: Basophils Percent Auto 0.7 % (0-2); Eosinophils Absolute Auto 0.2 X10*3/uL (0.0-0.4); Eosinophils Percent Auto 4.1 % (0-4); Hematocrit 40.2 % (42.0-52.0); Imm Gran Abs Auto 0.01 X10*3/uL (0.00-0.03); Imm Gran Pct Auto 0.2 % (0.0-0.4); Lymphocytes Absolute Auto 1.8 X10*3/uL (1.2-4.9); Lymphocytes Percent Auto 30.9 % (20-40); Mean Corpuscular HGB Conc 34.8 g/dl (31.0-36.0); Mean Corpuscular Hemoglobin 31.1 pg (27.0-33.0); Mean Corpuscular Volume 89.3 fL (80.0-98.0); Mean Platelet Volume 10.4 fL (9.4-12.4); Monocytes Absolute Auto 0.5 X10*3/uL (0.1-1.2); Monocytes Percent Auto 9.4 % (2-11); Neutrophils Absolute Auto 3.1 x10*3/uL (2.0-8.3); Neutrophils Percent Auto 54.7 % (45-73); Platelet Count 157 X10*3/uL (160-400); White Blood Count 5.7 X10*3/uL (4.8-10.8)
--- NOTE | 2024-01-24 17:50 | PC.NURSE ---
Pt comes from home for right abdominal pain with history of Right Inguinal Hernia for 1.5 months. Pain increased last night to a 10 but has since decreased to a 4. Pt states nausea and vomiting last night, mild nausea today but able to keep food and liquids down. Denies cp/sob/dizziness/headaches/diarrhea. A/ox4, lungs cta bilaterally, S1 and S2 heard, abdomen soft, tender on palpation when pushed in right lower quadrant, no radiation of pain. Pt resting in bed quietly, call nicholas within reach, awaiting further orders at this time.
[2024-01-24 17:54] LABS: Alanine Aminotransferase 26 U/L (0-40); Albumin Level 4.2 g/dL (3.5-5.0); Alkaline Phosphatase 63 U/L (39-117); Anion Gap 9 (12-20); Aspartate Amino Transferase 26 U/L (5-37); Bilirubin Direct 0.2 mg/dL (0.0-0.5); Bilirubin Total 0.4 mg/dL (0.0-1.0); Blood Urea Nitrogen 22 mg/dL (9-16); Calcium 9.5 mg/dL (8.4-10.2); Carbon Dioxide 29 mmol/L (22-29); Chloride 109 mmol/L (96-108); Estimated Glomerular Filt Rate > 60; Glucose Random 97 mg/dL (60-115); Lipase 28 U/L (8-78); Potassium 3.7 mmol/L (3.3-5.1); Sodium 143 mmol/L (135-145); Total Protein 7.1 g/dL (6.5-8.0)
[2024-01-24] MEDS: 0.9 % Sodium Chloride 1,000 ML 999 ML IV (18:09)
[2024-01-24 18:13] VITALS: BP 123/51; PULSE 82; RESP 12; TEMP 36.6; O2SAT 95
--- NOTE | 2024-01-24 18:21 | PC.NURSE ---
Pt requesting nausea medication. made aware by this typewriter operator automatic.
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
[2024-01-24] MEDS: ondansetron HCL 4 MG/2 ML VIAL IVPUSH (18:28)
[2024-01-24 18:36] LABS: Appearance Urine Clear; Color Urine Yellow; Glucose Urine UA Negative (Negative); Leukocyte Esterase Urine Negative (Negative); Nitrite Urine Negative (Negative); PH 6.5 (5.0-9.0); Urine Blood Negative (Negative); Urine Ketones Negative (Negative); Urine Protein Negative (Neg-Trace)
[2024-01-24] MEDS: iohexoL 350 MG/ML 100 ML INFUS..BTL IV (18:38)
[2024-01-24 19:19] VITALS: BP 146/71; PULSE 52; RESP 18; TEMP 36.8; O2SAT 95
--- NOTE | 2024-01-24 19:21 | MHC.EDTECH ---
This tech took over care of patient at 1900,hourly rounds and vitals completed,patient is resting with family at bedside,call nicholas in reach
[2024-01-24] MEDS: Ketorolac Tromethamine 30 MG/ML VIAL IVPUSH (20:02)
[2024-01-24 20:18] VITALS: BP 146/71; PULSE 52; RESP 18; TEMP 36.8; O2SAT 95
== END 2024-01-24 20:19 | disposition home or self-care (01) ==
PROVIDERS: Emergency Provider Internal Medicine; PCP Family Medicine
DX: R10.31 Right lower quadrant pain (principal); R11.0 Nausea; Z79.899 Other long term (current) drug therapy
CPT/HCPCS: 36415; 74177; 80053; 81003; 82248; 83690; 85025; 96374; 96375; 99284; 99285; J1885; J2405; Q9967

== ENCOUNTER → 2024-01-26 10:49 | Outpatient (REF) | payer OTHER, SELFPAY ==
--- NOTE | ~2024-01-26 | NM_ITS ---
EXAMINATION: THREE PHASE BONE SCAN CLINICAL INFORMATION: Presence of right artificial knee.. COMPARISON: No previous bone scan or recent radiographs are available for comparison.. TECHNIQUE: Initial rapid sequence images were obtained over the knees in the anterior and posterior projections during the bolus injection of 34 mCi Tc-99m MDP. Static images of the whole-body with multiple views of the knees, feet, and head were then obtained 3.5 hours post injection. FINDINGS: Initial rapid sequence images show bilaterally symmetrical flow to the knees with no foci of abnormally increased flow visualized at any site. Blood pool images obtained immediately following the flow study show a photopenic defect from the patient's right total knee prostheses. There is no abnormal blood pool activity. Delayed static images show: In the head, mildly increased activity in the alveolar ridge region of the right side of the maxilla, probably due to dental disease and a small mild focus in the right paranasal sinus region In the thoracic cage and upper extremities, there is minimally increased activity in the sternoclavicular joints bilaterally and the right acromioclavicular joint. There is a photopenic defect from a well-healed left total shoulder prosthesis with no abnormal activity adjacent to any of the prosthetic components. There is minimally increased activity in the glenohumeral articulation of the right shoulder and in a small faint focus in the lateral subacromial region of the right humeral head. In the spine, there is a mild diffuse increase in activity in the proximal left foot and medial aspect of the left ankle. More prominently increased activity which is still mild in intensity is present in the region of the fourth or fifth left tarsometatarsal joints. Minimally increased activity in the lateral malleolus of the right ankle is also present. In the pelvis, no significant abnormalities are present. In the lower extremities, a photopenic defect from a right total knee prosthesis is noted. There is very minimally increased activity diffusely adjacent to the femoral and tibial components and very mildly in the right patella. Minimally increased activity in the patellar and medial compartments of the left knee and in the proximal tibiofibular joint on the left are also noted.. NM/NM bone 3 phase IMPRESSION: 1. Well-healed right total knee and left total shoulder prostheses are present. There are no abnormalities at any site suspicious for loosening, infection, or adjacent fracture at either of the prostheses. 2. A small focal abnormality in the right paranasal sinus region is nonspecific. This may be due to a healing traumatic lesion or possibly a maxillary sinus osteoma. The finding is nonspecific and could be further characterized with a CT sinus series, if clinically indicated. Additional mild abnormalities in the right maxilla and probably also in the right side of the mandible are probably due to dental disease. 3. A few additional mild nonspecific abnormalities are noted as described above and these are all likely arthritic or traumatic in etiology. None of these abnormalities is strongly suspicious for metastatic disease..
== END ==
LOC: HO.NUCMED 10:49
PROVIDERS: PCP Family Medicine; Visit Provider Orthopaedic Surgery
DX: Z96.651 Presence of right artificial knee joint (principal)
CPT/HCPCS: 78315; A9503

== ENCOUNTER 2024-02-17 08:46 | Outpatient (REF) | payer MEDICARE, OTHER, SELFPAY ==
--- NOTE | 2024-02-17 08:00 | PFT_ITS ---
Flows: FEV1: 127 % of predicted at 4.53 L FVC: 120 % of predicted at 5.77 L FEV1/FVC: 79 % Bronchodilator response: Absent Volumes: Total lung capacity: 99 % of predicted at 8.04 L Residual volume: 79 % of predicted at 2.32 L Slow vital capacity: 112 % of predicted at 5.72 L Expiratory reserve volume: 104 % of predicted at 1.57 L Diffusion capacity: Normal Impression: No obstructive or restrictive ventilatory defect. No bronchodilator response. Normal pulmonary function test. MTDD
[2024-02-17 08:22] VITALS: PULSE 65; RESP 16; O2SAT 99
== END 2024-02-17 08:47 | disposition home or self-care (01) ==
LOC: HO.RESP 08:46
PROVIDERS: PCP Family Medicine; Visit Provider Hospitalist
DX: R09.02 Hypoxemia (principal)
CPT/HCPCS: 94010; 94640; 94727; 94729

== ENCOUNTER 2024-04-01 08:26 | Outpatient (AMB) | payer MEDICARE, SELFPAY ==
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
[2024-04-01 08:39] VITALS: BP 118/60; PULSE 74; RESP 16; O2SAT 94
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
== END 2024-04-01 10:22 | disposition home or self-care (01) ==
PROVIDERS: PCP Family Medicine; Visit Provider Physician Assistant Medical
DX: Z00.00 Encounter for general adult medical examination without abnormal findings (principal); Z23 Encounter for immunization
CPT/HCPCS: 90471; 90715; 99397

== ENCOUNTER 2024-04-03 10:19 | Outpatient (REF) | payer MEDICARE, SELFPAY ==
[2024-04-03 14:51] LABS: Appearance Urine Clear; Color Urine Yellow; Glucose Urine UA Negative (Negative); Leukocyte Esterase Urine Negative (Negative); Nitrite Urine Negative (Negative); PH 6.5 (5.0-9.0); Specific Gravity - Urine 1.025 (1.005-1.025); Urine Blood Negative (Negative); Urine Ketones Negative (Negative); Urine Protein Trace mg/dL (Neg-Trace)
[2024-04-03 15:10] LABS: Alanine Aminotransferase 36 U/L (0-40); Albumin Level 4.1 g/dL (3.5-5.0); Alkaline Phosphatase 62 U/L (39-117); Anion Gap 10 (12-20); Aspartate Amino Transferase 28 U/L (5-37); Bilirubin Total 0.5 mg/dL (0.0-1.0); Blood Urea Nitrogen 24 mg/dL (9-16); Calcium 9.4 mg/dL (8.4-10.2); Carbon Dioxide 26 mmol/L (22-29); Chloride 108 mmol/L (96-108); Cholesterol 129 mg/dL (<200); Estimated Glomerular Filt Rate > 60; Glucose Fasting 96 mg/dL (60-99); HDL Cholesterol 39 mg/dL (>40); Iron 96 mcg/dL (45-160); LDL Cholesterol Calculated 58 mg/dL (<100); Percent Iron Saturation 35 % (15-50); Potassium 3.8 mmol/L (3.3-5.1); Sodium 140 mmol/L (135-145); Total Iron Binding Capacity 277 mcg/dL (228-428); Total Protein 6.9 g/dL (6.5-8.0); Triglycerides 162 mg/dL (<150); Unsaturated Iron Binding 181 ug/dL
[2024-04-03 15:29] LABS: TSH reflex Free T4 1.43 uIU/mL (0.32-4.0)
[2024-04-03 15:33] LABS: Folate 12.1 ng/mL (> or = 4.0); Vitamin B12 568 pg/mL (200-900)
[2024-04-03 15:54] LABS: Creatinine Urine 160.58 mg/dL; Microalbum/Creatinine Ratio Ur 19.9 ug/mg cr (<30)
== END 2024-04-03 10:20 | disposition home or self-care (01) ==
LOC: HO.WFDLDS 10:19
PROVIDERS: Referring Provider Physician Assistant Medical; Visit Provider Family Medicine
DX: Z00.00 Encounter for general adult medical examination without abnormal findings (principal); N39.43 Post-void dribbling; R30.0 Dysuria; N40.0 Benign prostatic hyperplasia without lower urinary tract symptoms; I10 Essential (primary) hypertension; D64.9 Anemia, unspecified
CPT/HCPCS: 36415; 80053; 80061; 81003; 82043; 82570; 82607; 82746; 83540; 84443; 87086

== ENCOUNTER 2024-04-04 14:31 | Outpatient (REF) | payer MEDICARE, SELFPAY ==
[2024-04-04 17:54] LABS: MANUAL DIFF FLAG NO
[2024-04-04 18:16] LABS: Basophils Absolute Auto 0.1 X10*3/uL (0.0-0.2); Eosinophils Absolute Auto 0.2 X10*3/uL (0.0-0.4); Eosinophils Percent Auto 4.4 % (0-4); Hematocrit 40.9 % (42.0-52.0); Hemoglobin 13.8 g/dl (14.0-18.0); Imm Gran Abs Auto 0.01 X10*3/uL (0.00-0.03); Imm Gran Pct Auto 0.2 % (0.0-0.4); Lymphocytes Absolute Auto 1.7 X10*3/uL (1.2-4.9); Lymphocytes Percent Auto 33.7 % (20-40); Mean Corpuscular HGB Conc 33.7 g/dl (31.0-36.0); Mean Corpuscular Hemoglobin 31.6 pg (27.0-33.0); Mean Corpuscular Volume 93.6 fL (80.0-98.0); Mean Platelet Volume 10.5 fL (9.4-12.4); Monocytes Absolute Auto 0.5 X10*3/uL (0.1-1.2); Monocytes Percent Auto 10.4 % (2-11); Neutrophils Absolute Auto 2.5 x10*3/uL (2.0-8.3); Neutrophils Percent Auto 50.3 % (45-73); Platelet Count 184 X10*3/uL (160-400); Red Blood Count 4.37 X10*6/uL (4.60-5.80); Red Cell Distribution Width 12.9 % (11.0-16.0)
== END 2024-04-04 14:32 | disposition home or self-care (01) ==
LOC: HO.WFDLDS 14:31
PROVIDERS: Visit Provider Physician Assistant Medical
DX: D69.6 Thrombocytopenia, unspecified (principal)
CPT/HCPCS: 36415; 85025

== ENCOUNTER 2024-05-02 13:58 | Outpatient (AMB) | payer MEDICARE, SELFPAY ==
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
[2024-05-02 14:01] VITALS: BP 112/64; PULSE 57; O2SAT 95; BMI 28.5
== END 2024-05-02 15:16 | disposition home or self-care (01) ==
PROVIDERS: PCP Family Medicine; Visit Provider Nurse Practitioner Family
DX: G62.9 Polyneuropathy, unspecified (principal); R20.0 Anesthesia of skin; G25.9 Extrapyramidal and movement disorder, unspecified
CPT/HCPCS: 99204

== ENCOUNTER → 2024-05-02 13:58 | Outpatient (BNVA) | payer MEDICARE, SELFPAY | PROVIDERS: PCP Family Medicine; Visit Provider Nurse Practitioner Family | DX: G62.9 Polyneuropathy, unspecified (principal); R20.0 Anesthesia of skin; G25.9 Extrapyramidal and movement disorder, unspecified; R26.9 Unspecified abnormalities of gait and mobility | CPT/HCPCS: 99202 ==

== ENCOUNTER 2024-05-22 14:12 | Outpatient (REF) | payer MEDICARE, SELFPAY ==
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
== END 2024-05-22 14:13 | disposition home or self-care (01) ==
LOC: HO.NEURO 14:12
PROVIDERS: PCP Family Medicine; Visit Provider Nurse Practitioner Family
DX: R20.0 Anesthesia of skin (principal); G62.9 Polyneuropathy, unspecified
CPT/HCPCS: 95886; 95909

== ENCOUNTER → 2024-05-22 14:15 | Outpatient (BNV) | payer MEDICARE, SELFPAY | PROVIDERS: PCP Family Medicine; Visit Provider Physical Medicine & Rehabilitation | DX: R20.0 Anesthesia of skin (principal); M21.372 Foot drop, left foot; M54.16 Radiculopathy, lumbar region; R20.2 Paresthesia of skin; M79.605 Pain in left leg; M79.604 Pain in right leg | CPT/HCPCS: 95886; 95909 ==

== ENCOUNTER 2024-05-24 15:01 | Outpatient (AMB) | payer MEDICARE, SELFPAY ==
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
[2024-05-24 15:07] VITALS: BP 122/60; PULSE 62; O2SAT 97; BMI 28.2
== END 2024-05-24 15:27 | disposition home or self-care (01) ==
PROVIDERS: PCP Family Medicine; Visit Provider Hospitalist
DX: R05.3 Chronic cough (principal); R06.09 Other forms of dyspnea; R09.02 Hypoxemia; D80.2 Selective deficiency of immunoglobulin A [IgA]; Z77.098 Contact with and (suspected) exposure to other hazardous, chiefly nonmedicinal, chemicals; R91.8 Other nonspecific abnormal finding of lung field
CPT/HCPCS: 99214

== ENCOUNTER → 2024-05-24 15:01 | Outpatient (BNVA) | payer MEDICARE, OTHER, SELFPAY | PROVIDERS: PCP Family Medicine; Visit Provider Hospitalist | DX: R05.3 Chronic cough (principal); R06.09 Other forms of dyspnea; R09.02 Hypoxemia; D80.2 Selective deficiency of immunoglobulin A [IgA]; R91.8 Other nonspecific abnormal finding of lung field; Z91.85 Personal history of military service; Z57.4 Occupational exposure to toxic agents in agriculture | CPT/HCPCS: 99212 ==

== ENCOUNTER → 2024-05-27 11:58 | Outpatient (BNVA) | payer MEDICARE, SELFPAY | PROVIDERS: PCP Family Medicine; Visit Provider Family Medicine | DX: R10.9 Unspecified abdominal pain (principal); N28.1 Cyst of kidney, acquired | CPT/HCPCS: 99212 ==

== ENCOUNTER 2024-05-27 14:04 | Outpatient (AMB) | payer MEDICARE, SELFPAY ==
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
[2024-05-27 14:20] VITALS: BP 111/54; PULSE 71; RESP 16; TEMP 36.2; O2SAT 95; BMI 28.4
== END 2024-05-27 16:58 | disposition home or self-care (01) ==
PROVIDERS: PCP Family Medicine; Visit Provider Family Medicine
DX: R10.9 Unspecified abdominal pain (principal); N28.1 Cyst of kidney, acquired

== ENCOUNTER 2024-06-12 12:51 | Outpatient (AMB) | payer MEDICARE, SELFPAY ==
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
[2024-06-12 12:55] VITALS: BP 118/60; PULSE 70; O2SAT 94; BMI 28.6
== END 2024-06-12 13:26 | disposition home or self-care (01) ==
LOC: HO.HPSW 12:52
PROVIDERS: PCP Family Medicine; Visit Provider Nurse Practitioner Family
DX: R05.3 Chronic cough (principal); R06.09 Other forms of dyspnea
CPT/HCPCS: 99214

== ENCOUNTER → 2024-06-12 12:51 | Outpatient (BNVA) | payer MEDICARE, SELFPAY | PROVIDERS: PCP Family Medicine; Visit Provider Nurse Practitioner Family | DX: R05.3 Chronic cough (principal); R06.09 Other forms of dyspnea; R91.8 Other nonspecific abnormal finding of lung field; Z87.891 Personal history of nicotine dependence | CPT/HCPCS: 99212 ==

== ENCOUNTER 2024-07-02 15:28 | Emergency (ER) | payer MEDICARE, SELFPAY ==
--- NOTE | ~2024-07-02 | XR_ITS ---
EXAMINATION: XR CHEST CLINICAL INFORMATION: dyspnea x 3 weeks COMPARISON: Chest radiograph 07/11/2023. TECHNIQUE: 2 views of the chest were obtained. FINDINGS: Right chest wall stimulator device with intact leads coursing superiorly overlying the right upper hemithorax. The lungs are adequately expanded. No focal consolidation. No pleural effusions or pneumothorax. The cardiac mediastinal silhouette is within normal limits. Aortic calcifications. Degenerative changes of thoracic spine. Partially visualized left shoulder arthroplasty. XR/XR chest 2V IMPRESSION: No acute pulmonary disease. Electronically signed by: Lew Menezes MD 07/02/2024 06:32 PM [facility]
[2024-07-02 15:35] VITALS: BP 127/70; PULSE 60; RESP 20; TEMP 37; O2SAT 98; BMI 34.8
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
[2024-07-02 16:08] LABS: MANUAL DIFF FLAG NO
[2024-07-02 16:10] LABS: Basophils Percent Auto 0.5 % (0-2); Eosinophils Absolute Auto 0.2 X10*3/uL (0.0-0.4); Eosinophils Percent Auto 2.3 % (0-4); Hematocrit 41.6 % (42.0-52.0); Imm Gran Abs Auto 0.03 X10*3/uL (0.00-0.03); Imm Gran Pct Auto 0.4 % (0.0-0.4); Lymphocytes Absolute Auto 1.7 X10*3/uL (1.2-4.9); Lymphocytes Percent Auto 21.6 % (20-40); Mean Corpuscular HGB Conc 33.7 g/dl (31.0-36.0); Mean Corpuscular Hemoglobin 30.4 pg (27.0-33.0); Mean Corpuscular Volume 90.2 fL (80.0-98.0); Mean Platelet Volume 10.2 fL (9.4-12.4); Monocytes Absolute Auto 0.7 X10*3/uL (0.1-1.2); Monocytes Percent Auto 8.2 % (2-11); Neutrophils Absolute Auto 5.3 x10*3/uL (2.0-8.3); Platelet Count 167 X10*3/uL (160-400); Red Blood Count 4.61 X10*6/uL (4.60-5.80); Red Cell Distribution Width 12.7 % (11.0-16.0)
[2024-07-02 16:29] LABS: Alanine Aminotransferase 41 U/L (0-40); Albumin Level 4.2 g/dL (3.5-5.0); Anion Gap 11 (12-20); Aspartate Amino Transferase 33 U/L (5-37); Bilirubin Total 0.4 mg/dL (0.0-1.0); Blood Urea Nitrogen 22 mg/dL (9-16); Calcium 9.2 mg/dL (8.4-10.2); Carbon Dioxide 27 mmol/L (22-29); Chloride 105 mmol/L (96-108); Estimated Glomerular Filt Rate > 60; Glucose Random 86 mg/dL (60-115); Potassium 3.4 mmol/L (3.3-5.1); Sodium 140 mmol/L (135-145); Total Protein 6.9 g/dL (6.5-8.0)
[2024-07-02 16:45] LABS: Alkaline Phosphatase 73 U/L (39-117)
[2024-07-02 16:49] LABS: Influenza A PCR NEGATIVE (Negative); Influenza B PCR NEGATIVE (Negative); Resp Syncy Virus RNA Qual PCR NEGATIVE (Negative); SARS COV2 PCR INHOUSE NEGATIVE (Negative)
== END 2024-07-02 19:34 | disposition left against medical advice (07) ==
PROVIDERS: Registered Nurse Emergency; Emergency Provider Internal Medicine; PCP Family Medicine
DX: R06.02 Shortness of breath (principal); R05.9 Cough, unspecified; Z79.899 Other long term (current) drug therapy; Z03.818 Encounter for observation for suspected exposure to other biological agents ruled out
CPT/HCPCS: 0241U; 71046; 80053; 85025; 99281; 99283

== ENCOUNTER 2024-08-12 12:54 | Outpatient (AMB) | payer MEDICARE, SELFPAY ==
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
[2024-08-12 12:58] VITALS: BMI 28.6
--- OUTSIDE RECORDS SUMMARY | 2024-08-12 14:55 | XMS_ITS ---
Author Name [facility] Organization Unknown History of Medication Use Medication Directions Dispensed Refills Start Date End Date [facility] lidocaine (XYLOCAINE) 5 % ointment Apply topically 3 (three) times a day as needed. 07/21/2024 08/06/99 active Multiple Vitamin (Daily-Estefany Multivitamin) Tab Take 1 tablet by mouth. 07/21/2024 08/06/99 active meloxicam (MOBIC) 15 MG tablet Take 1 tablet (15 mg total) by mouth. 07/21/2024 08/06/99 active chlorhexidine (PERIDEX) 0.12 % oral solution TAKE 15 ML BY MOUTH 2 TIMES A DAY, GARGLE AND SPIT OUT 07/21/2024 08/06/99 active linaclotide (LINZESS) 72 mcg capsule Take 1 capsule (72 mcg total) by mouth. 07/21/2024 08/06/99 active nitroglycerin (NITROSTAT) 0.[address] 1 tablet (0.4 mg total) under the tongue. 07/21/2024 08/06/99 active amoxicillin (AMOXIL) 500 MG capsule Please take 4 CAPS of 500 MG one hour before your next dental appointment. 07/21/2024 08/06/99 active hydroCHLOROthiazide (HYDRODIURIL) 12.5 MG tablet Take 1 tablet (12.5 mg total) by mouth. FOR 90 DAYS 07/21/2024 08/06/99 active doxycycline (VIBRAMYCIN) 100 MG capsule TAKE 1 CAPSULE ORALLY 2 TIMES A DAY 07/21/2024 08/06/99 99 active diphenhydrAMINE-acetamin ophen (TYLENOL PM) 25-500 MG Tab Take 2 tablets by mouth nightly as needed. 07/21/2024 08/06/99 99 active ipratropium (ATROVENT) 0.06 % nasal spray into each nostril. 07/21/2024 08/06/99 99 active gabapentin (NEURONTIN) 100 MG capsule Take 1 capsule (100 mg total) by mouth. 01/10/2024 active gabapentin (NEURONTIN) 400 MG capsule TAKE 1 CAPSULE BY MOUTH EVERY NIGHT 01/10/2024 active primidone (MYSOLINE) 50 MG tablet TAKE 3 TABLETS (150 MG TOTAL) BY MOUTH 3 (THREE) TIMES A DAY. 12/28/2023 active cetirizine (ZyrTEC) 10 MG tablet TAKE 1 TABLET BY MOUTH DAILY NEEDED FOR ALLERGY SYMPTOMS 02/20/2023 active Aspirin 81 MG Cap daily. 04/29/2022 act palak ezetimibe (ZeTIA) 10 MG tablet Take 1 tablet (10 mg total) by mouth daily. 04/29/2022 active Multiple Vitamins-Minerals (CENTRUM SILVER 50+MEN PO) Centrum Silver 04/29/2022 active cephalexin (KEFLEX) 500 MG capsule Take 1 capsule (500 mg total) by mouth 3 (three) times a day. 04/29/2022 aborted Aspirin 81 MG Cap daily. 02/20/2023 act palak OMEprazole (PriLOSEC) 20 MG capsule Take 2 capsules (40 mg total) by mouth 2 (two) times a day. 04/29/2022 active oxyCODONE-acetaminophen (PERCOCET) 5-325 mg per tablet Take 1 tablet by mouth every 4 (four) hours as needed for severe pain. Max Daily Amount: 6 tablets 04/29/2022 aborted tadalafil (CIALIS) 5 MG tablet tadalafil 5 mg tablet TAKE 1 TABLET BY MOUTH EVERY DAY 04/29/2022 active senna-docusate (SENNA-S) 8.6-50 MG Take 2 tablets by mouth nightly. 04/29/2022 aborted HYDROmorphone (DILAUDID) 2 MG tablet TAKE 1 TO 2 TABLETS BY MOUTH EVERY 4 TO 6 HOURS NEEDED FOR MODERATE TO SEVERE PAIN 04/29/2022 aborted ascorbic acid (VITAMIN C) 500 MG tablet TAKE 2 TABLETS BY MOUTH DAILY. DO NOT START BEFORE NOVEMBER 06, 2020. 05/21/2022 active acetaminophen (TYLENOL) 325 MG tablet Take 3 tablets (975 mg total) by mouth every 8 (eight) hours around the clock. 04/29/2022 active fluticasone (FloNASE) 50 mcg/spray nasal spray fluticasone propionate 50 mcg/actuation nasal spray,suspension USE 1 SPRAY IN EACH NOSTRIL EVERY MORNING 04/29/2022 active docusate sodium (COLACE) 100 MG capsule TAKE 1 CAPSULE BY MOUTH TWICE A DAY DIRECTED 04/29/2022 active ferrous sulfate 324 (65 Fe) MG Tablet Delayed Response Take 1 tablet (324 mg total) by mouth daily. 07/02/2022 active finasteride (PROSCAR) 5 MG tablet finasteride 5 mg tablet TAKE 1 TABLET BY MOUTH EVERY DAY 04/29/2022 active losartan-hydrochlorothia zide (HYZAAR) 100-12.5 MG per tablet losartan 100 mg-hydrochlorothi azide 12.5 mg tablet TAKE 1 TABLET BY MOUTH EVERY DAY 04/29/2022 active clotrimazole-betamethaso ne (LOTRISONE) cream as needed. 04/29/2022 acti ve primidone (MYSOLINE) 50 MG tablet Take 3 tablets (150 mg total) by mouth 3 (three) times a day. 2-3 tabs a night 04/29/2022 active ondansetron (ZOFRAN) 4 MG tablet Take 1 tablet (4 mg total) by mouth 3 times daily (every 8 hours) as needed for nausea or vomiting. 04/29/2022 active lamoTRIgine (LaMICtal) 25 MG tablet Take 1 tablet (25 mg total) by mouth daily. 08/20/2022 active lamoTRIgine (LaMICtal) 200 MG tablet Take 1 tablet (200 mg total) by mouth 2 (two) times a day. 04/29/2022 active lactulose (ENULOSE) 10 gm/15 mL solution TAKE 10 20 ML BY MOUTH TWICE A DAY NEEDED 04/29/2022 active LORazepam (ATIVAN) 1 MG tablet Take 1 tablet (1 mg total) by mouth nightly. Takes half a tablet daily as needed 04/29/2022 active ALPRAZolam (XANAX) 0.25 MG tablet alprazolam 0.25 mg tablet TAKE 1 TABLET BY MOUTH ONE TO THREE TIMES A DAY 04/29/2022 active lamoTRIgine (LaMICtal) 25 MG tablet 04/29/2022 active nystatin (MYCOSTATIN) ointment 04/29/2022 active b complex vitamins capsule Take 1 capsule by mouth daily. 04/29/2022 active senna (SENOKOT) 8.6 MG Tab tablet Take 2 tablets by mouth daily as needed for constipation. 07/02/2022 active losartan (COZAAR) 50 MG tablet Take 1 tablet (50 mg total) by mouth daily. 10/16/2022 active metoPROLOL SUCCINATE (TOPROL-XL) 50 MG 24 hr tablet Take 1.5 tablets (75 mg total) by mouth nightly. 04/29/2022 active Probiotic Product (Align) 4 MG Cap daily. 04/29/2022 active albuterol (PROVENTIL HFA; VENTOLIN HFA) 108 (90 Base) MCG/ACT inhaler albuterol sulfate HFA 90 mcg/actuation aerosol inhaler INHALE 2 PUFFS INTO THE LUNGS EVERY 4 HOURS NEEDED FOR COUGH, WHEEZING OR SHORTNESS OF BREATH. 04/29/2022 active traZODone (DESYREL) 50 MG tablet trazodone 50 mg tablet TAKE 1 TO 2 TABLETS BY MOUTH EVERY DAY AT BEDTIME 04/29/2022 active atorvastatin (LIPITOR) 80 MG tablet atorvastatin 80 mg tablet TAKE 1 TABLET BY MOUTH EVERY DAY 04/29/2022 active ascorbic acid (VITAMIN C) 500 MG tablet TAKE 2 TABLETS BY MOUTH DAILY. DO NOT START BEFORE NOVEMBER 06, 2020. 04/29/2022 active amLODIPine (NORVASC) 10 MG tablet amlodipine 10 mg tablet TAKE 1 TABLET BY MOUTH EVERY DAY 04/29/2022 active Problems Problem Status Onset Date Problem Type Date of Resoluti on Source Status post deep brain stimulator placement active 2021-02-18 [facility] Chronic pain of right knee active 2021-09-06 [facility] Essential tremor active 2020-11-04 [facility] Postoperative visit active 2020-12-01 [facility]
== END 2024-08-12 15:17 | disposition home or self-care (01) ==
PROVIDERS: PCP Family Medicine; Visit Provider Orthopaedic Surgery
DX: M25.561 Pain in right knee (principal); Z96.651 Presence of right artificial knee joint
CPT/HCPCS: 99213

== ENCOUNTER 2024-09-30 14:37 | Outpatient (AMB) | payer MEDICARE, SELFPAY ==
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
[2024-09-30 14:48] VITALS: BP 116/60; PULSE 73; RESP 14; TEMP 36.8; O2SAT 96; BMI 30.1
--- OUTSIDE RECORDS SUMMARY | 2024-09-30 16:50 | XMS_ITS | Encounter Summary ---
Author Organization [facility] Address [address] [place] [address] Care Team Providers Care Memorandum Statement Clerk Name Role Phone Adeline Guo MD Primary Care Provider [phone] Feliciano Evans MD Unavailable Yara Harding MD Unavailable [phone] Encounter Details Date Type Department Care Team ([facility] Contact Info) Description 04/08/2020 Scanned Document [facility] Neurosurgery [address] [phone] Monroe Choi MD [address] [place], [place] [id number] Social History Tobacco Use Types Packs/Day Years Used Date Smoking Tobacco: Never Smokeless Tobacco: Never Sex and Gender Information Value Date Recorded Sex Assigned at Male 02/23/2022 12:37 PM EDT Gender Identity Not on file Sexual Orientation Heterosexual (straight) 02/23 12:37 PM EDT COVID-19 Exposure Response Date Recorded In the last month, have you been in contact with someone who was confirmed or suspected to have Coronavirus / COVID-19? No / Unsure 04/06/2020 1:21 PM EDT documented as of this encounter Plan of Treatment Upcoming Encounters Date Type Department Care Team (Late Contact Info) Description 10/14/2024 1:00 PM EDT Consult [facility] Neurology [address] [place] [address] Suman Dudley MD [address] [id number] 10/16/2024 3:50 PM EDT Office Visit [facility] Neurology [place] [address] [phone] Nehemias Hussein APRN [address] [address] documented as of this encounter Visit Diagnoses Not on filedocumented in this encounter Care Teams Memorandum Statement Clerk Relationship Specialty Start Date End Date Adeline Guo MD [address] [place] [id number] PCP - General Internal Medicine 03/10/20 Feliciano Evans MD [address] [place] [phone] Referring Provider 10/28/20 Yara Harding MD [address] [place] [id number] Neurology 03/20/[address] [address] Neurology Neurology 06/07/22 documented as of this encounter
--- OUTSIDE RECORDS SUMMARY | 2024-09-30 16:50 | XMS_ITS | Encounter Summary ---
Author Organization Formerly [facility] Address [address] [place] [address] Care Team Providers Care Sewer Separation Designer Name Role Phone Adeline Guo MD Primary Care Provider [phone] Feliciano Evans MD Unavailable Yara Harding MD Unavailable [phone] Encounter Details Date Type Department Care Team ([facility] Contact Info) Description 05/31/2022 Scanned Document [facility] Neurosurgery [address] [address] Monroe Choi MD 85 [facility] [place] [address] [place] [phone] Social History Tobacco Use Types Packs/Day Years Used Date Smoking Tobacco: Never Smokeless Tobacco: Never Alcohol Use Standard Drinks/Week Comments Yes 1 (1 standard drink = 0.6 oz pur e alcohol) 1x/month Sex and Gender Information Value Date Recorded Sex Assigned at Male 02/23/2022 12:37 PM EDT Gender Identity Not on file Sexual Orientation Heterosexual (straight) 02/23 12:37 PM EDT COVID-19 Exposure Response Date Recorded In the last 10 days, have yo u been in contact with someone who was confirmed or suspected to have Coronavirus/COVID-19? No / Unsure 05/30/2022 3:22 PM EDT documented as of this encounter Plan of Treatment Upcoming Encounters Date Type Department Care Team ([facility] Contact Info) Description 10/14/2024 1:00 PM EDT Consult [facility] Neurology [place] 35 [facility] 6 [place] [address] Suman Dudley MD [address] [facility] 6 [place] [address] 10/16/2024 3:50 PM EDT Office Visit [facility] Neurology [place] 35 [facility] 6 [place] [address] Nehemias Hussein APRN [address] [address] documented as of this encounter Visit Diagnoses Not on filedocumented in this encounter Care Teams Sewer Separation Designer Relationship Specialty Start Date End Date Adeline Guo MD [address] [place] [address] PCP - General Internal Medicine 03/10/20 Feliciano Evans MD [address] [place] [address] Referring Provider 10/28/20 Yara Harding MD [address] [place] [address] Neurology 03/20/[address] [address] Neurology Neurology 06/07/22 documented as of this encounter
--- OUTSIDE RECORDS SUMMARY | 2024-09-30 16:50 | XMS_ITS | Encounter Summary ---
Author Organization [facility] Address [address] [place] [address] Care Team Providers Care Carbon Plant Grinder Name Role Phone Adeline Guo MD Primary Care Provider [phone] Feliciano Evans MD Unavailable Yara Harding MD Unavailable [phone] Encounter Details Date Type Department Care Team (Late Contact Info) Description 10/28/2021 Scanned Document [facility] Neurosurgery [address] [place] [phone] Monroe Choi MD [address] [place] [phone] Social History Tobacco Use Types Packs/Day Years Used Date Smoking Tobacco: Never Smokeless Tobacco: Never Alcohol Use Standard Drinks/Week Comments Yes 1 (1 standard drink = 0.6 oz pur e alcohol) 1x/month Sex and Gender Information Value Date Recorded Sex Assigned at Male 02/23/2022 12:37 PM EDT Gender Identity Not on file Sexual Orientation Heterosexual (straight) 02/23 12:37 PM EDT documented as of this encounter Plan of Treatment Upcoming Encounters Date Type Department Care Team ([facility] Contact Info) Description 10/14/2024 1:00 PM EDT Consult [facility] Neurology [address] 6 [place] [address] Suman Dudley MD [address] [address] 10/16/2024 3:50 PM EDT Office Visit [facility] Neurology [place]l 35 [facility] 6 [place] [address] Nehemias Hussein APRN [address] [address] documented as of this encounter Visit Diagnoses Not on filedocumented in this encounter Care Teams Carbon Plant Grinder Relationship Specialty Start Date End Date Adeline Guo MD [address] [place] [address] PCP - General Internal Medicine 03/10/20 Feliciano Evans MD [address] [place] [address] Referring Provider 10/28/20 Yara Harding MD [address] [place] [address] Neurology 03/20/[address] [address] Neurology Neurology 06/07/22 documented as of this encounter
--- OUTSIDE RECORDS SUMMARY | 2024-09-30 16:50 | XMS_ITS | Patient Health Record ---
Author Organization [facility] Address [address] [place] [address] Care Team Providers Care Park Services Specialist Name Role Phone Adeline Guo Primary Care Provider Pricila Valenzuela Unavailable [phone] REASON FOR REFERRAL No Information MEDICATIONS Medication SIG (Take, Route, Frequency, Duration) Notes Start Date End Date Status amitriptyline 25 mg 1 tab(s) orally once a day (at bedtime) for 30 Active Enulose 10 g/15 mL 30 mL orally twice a day for 30 days 09/06/2017 Active omeprazole 20 mg 1 cap(s) orally twic e a day for 30 day(s) 09/06/2017 Active lamoTRIgine Active Zofran 4 mg 1 tab(s) orally ever y 8 hours for 30 days 08/05/2016 Active rOPINIRole Active pantoprazole 40 mg 1 tab(s) orally once a day for 30 day(s) 08/05/2016 Active primidone Active hydrochlorothiazide Active finasteride Active losartan Active isosorbide dinitrate Active omeprazole Active Phenergan 12.5 mg 1 supp(s) rectally every 6 hours as needed for 30 Active omeprazole 20 mg 1 cap(s) orally twic e daily for 30 day(s) 05/26/2021 Active metoprolol Active atorvastatin Active aspirin Active Suprep Bowel Prep Kit (obsolete) 1.6 g-3.13 g-17.5 g/177 mL 177 mL orally twice for 2 dose(s) 09/13/2017 Active SOCIAL HISTORY Tobacco Use: Social History Observation Description Date Details (start date - stop date) Never Smoker NA - NA Sex Assigned At : Social History Observation Description Sex Assigned At Unknown Smoking Status / Tobacco Question Answer Notes Are you a: non smoker PROBLEMS Problem Type ICD Code Onset Dates Problem Status W/U Status Risk SNOMED Code Notes Problem ABDMNAL PAIN GENERALIZED (789.07) Active confirmed Generalized abdominal pain (035798752) Problem Diarrhea (787.91) Active confirmed Diarrhea (64619511) Problem Vomiting (787.03) Active confirmed Vomiting (400851084) Problem Abnormal loss of weight (783.21) Active confirmed Abnormal weight loss (841380454) Problem GERD [Gastroesophage al reflux disease] (530.81) Active confirmed Gastroesophagea l reflux disease (disorder) (671214791) Problem Projectile vomiting with nausea (R11.12) Active confirmed Vomiting (173727491) Problem Diarrhea, unspecified type (R19.7) Active confirmed Diarrhea (26916333) Problem Chronic GERD (K21.9) Active confirmed 532112264 Problem Slow transit constipation (K59.01) Active confirmed 51733669 Problem Intractable cyclical vomiting with nausea (G43.A1) Active confirmed 97977850 Problem Barretts esophagus without dysplasia (K22.70) Active confirmed 594015463 Problem Bleeding per rectum (K62.5) Active confirmed 26248628 PLAN OF TREATMENT Pending Test Test Name Order Date *Ova+Parasites Exam, Routine 03/31/2015 MRI:ENTEROGRAPHY 03/31/2015 Gastric emptying study 03/31/2015 CT Abdomen Pelvis with contrast 08/05/20 16 Insurance Providers Payer Name Payer Address Payer Phone Subscriber Number Group Number Insured Name Patient Relationship to Insured Coverage Start Date Coverage End Date Medicare B [place] [employer] [place] [facility] [address] [place] [address] [phone] [id number] THALIA DANIELSON Self - patient is the insured Medicaid OF [facility] PLAN [address] [place] [address] [id number] THALIA DANIELSON Self - patient is the insured MEDICAL (GENERAL) HISTORY Medical History History ICD Code Hypertension Coronary artery disease s/p PCI Depression/ anxiety Hyperlipidemia Surgical History Surgery Date(Month/Year) cardiac stents
--- OUTSIDE RECORDS SUMMARY | 2024-09-30 16:50 | XMS_ITS | Encounter Summary ---
Author Organization [facility] Address [address] [place] [address] Care Team Providers Care Director Airport Operations Name Role Phone Adeline Guo MD Primary Care Provider [phone] Feliciano Evans MD Unavailable Yara Harding MD Unavailable [phone] Encounter Details Date Type Department Care Team (Late Contact Info) Description 08/05/2020 Scanned Document [facility] Neurosurgery [address] [phone] Monroe Choi MD [address] [place] [address] Social History Tobacco Use Types Packs/Day Years [...] Info) Description 10/14/2024 1:00 PM EDT Consult [facility] Neurology [address] [address] Suman Dudley MD [address] [place] [address] 10/16/2024 3:50 PM EDT Office Visit [facility] Neurology [place] 35 [facility] [address] [place] [address] Nehemias Hussein, RAFAEL 35 [facility] [address] [place] [address] documented as of this encounter Visit Diagnoses Not on filedocumented in this encounter Care Teams Director Airport Operations Relationship Specialty Start Date End Date Adeline Guo MD [address] [place] [address] PCP - General Internal Medicine 03/10/20 Feliciano Evans MD [address] [place] [address],[facility] [address] [place] [address] Referring Provider 10/28/20 Yara Harding MD [address] [place] [address],[facility] [address] [place] [address] Neurology 03/20/23 Austin Sethi [address] [place] [address] Neurology Neurology 06/07/22 documented as of this encounter
--- OUTSIDE RECORDS SUMMARY | 2024-09-30 16:50 | XMS_ITS | Encounter Summary ---
Author Hub Preferred Language Korean Marital Status Faith Affiliation Unknown Race White Ethnic Group Not or Lati no Author Organization [facility] Address [address] [place] [address] Care Team Providers Care Activity Aid Name Role Phone Adeline Guo MD Primary Care Provider [phone] Feliciano Evans MD Unavailable Yara Harding MD Unavailable [phone] Encounter Details Date Type Department Care Team ([facility] Contact Info) Description 05/20/2021 Scanned Document [facility] Neurosurgery [address] [place] [phone] Monroe Choi MD 85 [facility] Jose [address] [place] [phone] Social History Tobacco Use Types Packs/Day Years [...] have Coronavirus / COVID-19? No / Unsure 04/26/2021 3:22 PM EDT documented as of this encounter Plan of Treatment Upcoming Encounters Date Type Department Care Team ([facility] Contact Info) Description 10/14/2024 1:00 PM EDT Consult [facility] Neurology [place] 35 [facility] [address] [place] [address] Suman Dudley MD 35 [facility] 6 [place] [address] 10/16/2024 3:50 PM EDT Office Visit [facility] Neurology [place] 35 [facility] 6 [place] [address] Nehemias Hussein APRN [address] [address] documented as of this encounter Visit Diagnoses Not on filedocumented in this encounter Care Teams Activity Aid Relationship Specialty Start Date End Date Adeline Guo MD [address] [place] [address] PCP - General Internal Medicine 03/10/20 Feliciano Evans MD [address] [place] [address] Referring Provider 10/28/20 Yara Harding MD [address] [place] [address] Neurology 03/20/[address] [address] Neurology Neurology 06/07/22 documented as of this encounter
--- OUTSIDE RECORDS SUMMARY | 2024-09-30 16:50 | XMS_ITS | Encounter Summary ---
Author Organization [facility] Address [address] [place] [address] Care Team Providers Care Cribbing Setter Name Role Phone Curt Wiseman MD Primary Care Provider [phone] Encounter Details Date Type Department Care Team (Late st Contact Info) Description 08/21/2024 Telephone Orthopedic Surgery - [place] 250 175 [facility] [address] [place] [phone] Michelle Watson PA [address] [facility] [address] [place] [address] [place] [phone] Social History Tobacco Use Types Packs/Day Years Used Date Smoking Tobacco: Never Smokeless Tobacco: Never Alcohol Use Standard Drinks/Week Comments Yes 0 (1 standard drink = 0.6 oz pur e alcohol) 2 beers per month Sex and Gender Information Value Date Recorded Sex Assigned at Male 06/06/2024 2:40 PM EDT Legal Sex Male 12:29 PM EST Gender Identity Male 06/06/2024 2:40 PM EDT Sexual Orientation Straight 06/06/2024 2: 40 PM EDT documented as of this encounter Progress Notes * Camelia Amato MA - 08/28/2024 2:19 PM EST Patient came into office to be seen for left hand. He is scheduled for and EMG 11/05/24. Patient isrequesting to be put on a cancellation list if there is one available. He can be reached at [phone] * Camelia Amato MA - 08/21/2024 1:49 PM EST Called patient. I misread the previous message sent. Patient has not been scheduled for the test yet. I transferred them to the EMG department so they can schedule. Advised to schedule with us when EMG is complete. They understood * Rachel Rodriguez - 08/21/2024 1:18 PM EST Bj is calling request a call back on the status of the EMG order documented in this encounter Plan of Treatment Upcoming Encounters Date Type Department Care Team (Late st Contact Info) Description 11/05/2024 4:00 PM EDT Appointment [facility] Neurodiagnostic [address] [place] [phone] documented as of this encounter Visit Diagnoses Not on filedocumented in this encounter Care Teams Cribbing Setter Relationship Specialty Start Date End Date Curt Wiseman MD [address] [place] [address] PCP - General Family Medicine 07/22/24 documented as of this encounter
--- OUTSIDE RECORDS SUMMARY | 2024-09-30 16:50 | XMS_ITS | Encounter Summary ---
Author Organization [facility] Address [address] [place] [address] Care Team Providers Care Laboratory Courier Name Role Phone Adeline Guo MD Primary Care Provider [phone] Feliciano Evans MD Unavailable Yara Harding MD Unavailable [phone] Encounter Details Date Type Department Care Team ([facility] Contact Info) Description 06/01/2022 Scanned Document [facility] Neurosurgery [address] [place] [address] Neurosurgery, Scan Social History Tobacco Use Types Packs/Day Years [...] Upcoming Encounters Date Type Department Care Team ([facility] Contact Info) Description 10/14/2024 1:00 PM EDT Consult [facility] Neurology [address] [place] [phone] Suman Dudley MD [address] [address] 10/16/2024 3:50 PM EDT Office Visit [facility] Neurology [place] [address] [address] Nehemias Hussein APRN [address] [address] documented as of this encounter Visit Diagnoses Not on filedocumented in this encounter Care Teams Laboratory Courier Relationship Specialty Start Date End Date Adeline Guo MD [address] [place] [address] PCP - General Internal Medicine 03/10/20 Feliciano Evans MD [address] [place] [address] Referring Provider 10/28/20 Yara Harding MD [address] [place] [address] Neurology 03/20/23 Austin Sethi [address] [place] [address] Neurology Neurology 06/07/22 documented as of this encounter
--- OUTSIDE RECORDS SUMMARY | 2024-09-30 16:50 | XMS_ITS | Referral Summary ---
Author Organization [facility] Address [address] [place] [address] Care Team Providers Care International Logistics Coordinator Name Role Phone Adeline Locke Primary Care Provider Unavailable Encounters Date Type Department Care Team Description 09/13/2024 Telephone [facility] Sports Medicine [address] [place] [address] Telephone Intake, Staff PAC Patient Request Call Back_Luke (Pt would like call back in regards dry cell assembly machine tender used during surgery back in [address] Butler.) from Last 3 Months Allergies Active Allergy Reactions Criticality Noted Date Comments Gabapentin Other (see comments) 02/21/2022 Extreme non-functional Pregabalin Dyspnea High 02/21/2022 Vardenafil Headache,Other (see comments) High 03/17/2009 Medications PROAIR HFA 90 mcg/actuation inhaler INHALE 2 PUFFS INTO THE LUNGS EVERY 4 HOURS NEEDED FOR SHORTNESS OF BREATH 5 9 Active ALPRAZolam (XANAX) 0.25 mg tablet Take 0.25 mg by mouth nightly as needed. 0 9 Active amLODIPine (NORVASC) 10 mg tablet Take 10 mg by mouth daily. 5 9 Active atorvastatin (LIPITOR) 80 mg tablet Take 80 mg by mouth at bed time. 5 9 Active QVAR REDIHALER 40 mcg/actuation HFA aerosol breath activated inhaler Inhale 2 puffs by mouth 2 times a day. 0 9 Active cyclobenzaprine (FLEXERIL) 5 mg tablet TAKE 1 TABLET BY MOUTH THREE TIMES A DAY NEEDED FOR MUSCLE SPASM 0 8 Active ezetimibe (ZETIA) 10 mg tablet Take 10 mg by mouth at bed time. 3 9 Active finasteride (PROSCAR) 5 mg tablet Finasteride 5 MG Oral Tablet TAKE 1 TABLET DAILY. Refills: 0 Active Active lamoTRIgine (LaMICtal) 200 mg tablet Take 200 mg by mouth 2 times a day. 5 9 Active metoprolol succinate XL (TOPROL XL) 25 mg tablet Take 75 mg by mouth at bed time. 5 9 Active nitroglycerin (NITROSTAT) 0.[address] 1 TABLET BY SUBLINGUAL ROUTE EVERY 5 MINUTES NEEDED FOR CHEST PAIN 3 8 Active omeprazole (PriLOSEC) 40 mg capsule Take 20 mg by mouth 2 times a day. 5 9 Active primidone (MYSOLINE) 50 mg tablet 100 mg in the AM, 200 mg in the PM 9 Active tadalafil (CIALIS) 5 mg tablet Take 5 mg by mouth daily. 11 9 Active tamsulosin (FLOMAX) 0.4 mg capsule daily as needed. 1 9 Active traZODone (DESYREL) 50 mg tablet TAKE 1 TABLET BY MOUTH EVERY DAY AT BEDTIME FOR 14 DAYS 0 8 Active aspirin 81 mg EC tablet Take 81 mg by mouth daily. Active clotrimazole-be tamethasone (LOTRISONE) cream APPLY SPARINGLY (TO AFFECTED AREA) 2 TIMES DAILY 0 9 Active ondansetron (ZOFRAN) 4 mg tablet Take 4 mg by mouth every 8 hours as needed. for nausea 3 9 Active multivitamin (THERAGRAN) tablet Take 1 tablet by mouth daily. Active losartan-hydroc hlorothiazide (HYZAAR) 100-12.5 mg per tablet Take 1 tablet by mouth daily. Consult with your PCP regarding when to resume this medication 3 9 Active acetaminophen (TYLENOL) 325 mg tablet Take 2 tablets (650 mg total) by mouth every 6 hours. 9 Active polyethylene glycol 3350 (MIRALAX) 17 gram packet Take 1 packet (17 g total) by mouth daily as needed (CONSTIPATION). Mix powder in 4 to 8 oz of water, juice, coffee, or tea. 9 Active senna (SENOKOT) 8.6 mg tablet Take 2 tablets (17.2 mg total) by mouth nightly. 9 Active docusate sodium (COLACE) 100 mg capsule Take 1 capsule (100 mg total) by mouth 2 times a day. 9 Active bisacodyl (DULCOLAX) 10 mg suppository Insert 1 suppository (10 mg total) into the rectum daily as needed for constipation. 9 Active oxyCODONE IR (ROXICODONE) 5 mg tablet Take 1 tablet (5 mg total) by mouth every 8 hours as needed for breakthrough pain. Max Daily Amount: 15 mg 20 tablet 0 Active Additional Information Patient not taking.Reported on 05/31/2022 diclofenac (VOLTAREN) 1% gel APPLY TO AFFECTED AREA 3 TIMES A DAY 0 Active fluticasone propionate (FLONASE) 50 mcg/actuation nasal spray USE 1 SPRAY IN EACH NOSTRIL EVERY MORNING 0 Active GAVILYTE-G 236-22.74-6.74 -5.86 gram solution TAKE 8 OUNCE BY MOUTH DIRECTED 0 Active gabapentin (NEURONTIN) 100 mg capsule Take 1 capsule (100 mg total) by mouth every 8 hours. 90 capsule 0 Active vitamin B complex (Vitamins B Complex) capsule Take 1 capsule by mouth daily. 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 Left leg numbness 02/05/2019 Social History Tobacco Use Types Packs/Day Years Used Date Smoking Tobacco: Never Smokeless Tobacco: Never Comments:: Alcohol Use Standard Drinks/Week Comments Not Currently 0 (1 standard drink = 0.6 oz pur e alcohol) Sex and Gender Information Value Date Recorded Sex Assigned at Not on file Legal Sex Male 2:05 AM EDT Gender Identity Not on file Sexual Orientation Not on file Last Filed Vital Signs Vital Sign Reading Time Taken Comments Blood Pressure 151/74 03/08/2022 9:57 AM EDT Pulse 93 03/08/2022 9:57 AM EDT Temperature 36.4 ??C (97.6 ??F) 09/12/2019 3:54 PM ES T Respiratory Rate 18 07/13/2019 4:31 PM EST Oxygen Saturation 95% 07/13/2019 4:31 PM EST Inhaled Oxygen Concentration - - Weight 100.1 kg (220 lb 9.6 oz) 03/08/2022 9:57 AM EDT Height 180.3 cm (5' 11 ) 03/08/2022 9:57 AM EDT Body Mass Index 30.77 03/08/2022 9:57 AM EDT Plan of Treatment Not on file Medical Devices Implanted Type Area Naval Architect Specialist Device Identifier Shelf Expiration Date Model / Serial / Lot Baseplate Reverse Shoulder Prosthesis With P2 Coating 30mm - [id number] Implanted:Qty: 1 on 07/12/2019 by Andrew Butler MD at [facility] Implant [employer] 05/03/2025 [id number] / / [id number] Head Glenoid With Retaining Screw Hume Shoulder Prosthesis Neutral 32mm - [id number] Implanted:Qty: 1 on 07/12/2019 by Andrew Butler MD at [facility] Implant [employer] 04/09/2025 [id number] / / [id number] Insert Socket Humeral Standard Hxe-Plus Rsp Sterile [id number] - [id number] Implanted:Qty: 1 on 07/12/2019 by Andrew Butler MD at [facility] Implant [employer] 05/31/2023 [id number] / / [id number] Stem Humeral Standard Reverse Shoulder Prosthesis [id number] - [id number] Implanted:Qty: 1 on 07/12/2019 by Andrew Butler MD at [facility] Implant [employer] 07/12/2024 [id number] / / [id number] Screw Locking Reverse Shoulder Prosthesis [id number] - [id number] Implanted:Qty: 1 on 07/12/2019 by Andrew Butler MD at [facility] Screw [employer] 03/24/2025 [id number] / / [id number] Screw Locking Bone Reverse Shoulder Prosthesis [id number] - [id number] Implanted:Qty: 1 on 07/12/2019 by Andrew Butler MD at [facility] [employer] 04/19/2025 [id number] / / [id number] Screw Locking Reverse Shoulder Prosthesis [id number] - [id number] Implanted:Qty: 1 on 07/12/2019 by Andrew Butler MD at [facility] [employer] 02/27/2025 [id number] / / [id number] Insurance [facility] Advance Directives * Full Code (Latest Code Status on File) Date Activated Date Inactivated Comments 07/12/2019 1:40 PM 07/13/2019 8:20 PM * Full Code Date Activated Date Inactivated Comments 07/12/2019 6:13 AM 07/12/2019 1:40 PM Care Teams International Logistics Coordinator Relationship Specialty Start Date End Date Adeline Locke PCP - General Pediatrics 11/14/17
--- OUTSIDE RECORDS SUMMARY | 2024-09-30 16:50 | XMS_ITS | Encounter Summary ---
Author Organization [facility] Address [address] [place] [id number] Care Team Providers Care Stereo Equipment Salesperson Name Role Phone Adeline Guo MD Primary Care Provider [phone] Feliciano Evans MD Unavailable Yara Harding MD Unavailable Encounter Details Date Type Department Care Team (Latest Contact Info) Description 09/09/2024 Travel Social History Tobacco Use Types Packs/Day Years [...] Care Team (Late st Contact Info) Description 10/14/2024 1:00 PM EDT Consult [facility] [address] [phone] Suman Dudley MD [address] [place] [address] 10/16/2024 3:50 PM EDT Office Visit [facility] [address] [phone] Nehemias Hussein, VOCATIONAL REHABILITATION SUPERVISOR [address] [place] [address] documented as of this encounter Visit Diagnoses Not on filedocumented in this encounter Care Teams Stereo Equipment Salesperson Relationship Specialty Start Date End Date Adeline Guo MD [address] [place] [phone] PCP - General Internal Medicine 03/10/20 Feliciano Evans MD [address] [place] [address],RAD[place] [address] [facility] [place] [address] Referring Provider 10/28/20 Yara Harding MD [address] [place] [address],[place] [address] [facility] [place] [address] Neurology 03/20/23 [place] Sethi [address] [place] [address] Neurology Neurology 06/07/22 documented as of this encounter
--- OUTSIDE RECORDS SUMMARY | 2024-09-30 16:50 | XMS_ITS | Encounter Summary ---
Author Organization [facility] Address [address] [place] [address] Care Team Providers Care Sprue Knocker Name Role Phone Adeline Locke Primary Care Provider Unavailable Reason for Visit * Reason Onset Date Comments Neurology apt with Dr. Kitchen 11/30/2021 Encounter Details Date Type Department Care Team (Late st Contact Info) Description 11/30/2021 Telephone [facility] [address] [place] [address] [phone] Telephone Intake, Staff Neurology apt with Dr. Kitchen Social History Tobacco Use Types Packs/Day Years Used Date Smoking Tobacco: Never Smokeless Tobacco: Never Comments:: Alcohol Use Standard Drinks/Week Comments Not Currently 0 (1 standard drink = 0.6 oz pur e alcohol) Sex and Gender Information Value Date Recorded Sex Assigned at Not on file Legal Sex Male 2:05 AM EDT Gender Identity Not on file Sexual Orientation Not on file documented as of this encounter Miscellaneous Notes * Telephone Encounter - Lorna Miranda - 11/30/2021 12:19 PM EDT Send To MD reviewer * Telephone Encounter - Nathalia Ferreira - 11/30/2021 11:48 AM EDT Pt called and said that Dr. Choe from orthopedics are referring them to see Dr. 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 I tried to book the apt but DT denied scheduling. A good call back number is [phone]. documented in this encounter Plan of Treatment Not on file documented as of this encounter Visit Diagnoses Not on filedocumented in this encounter Care Teams Sprue Knocker Relationship Specialty Start Date End Date Adeline Locke PCP - General Pediatrics 11/14/17 documented as of this encounter
--- OUTSIDE RECORDS SUMMARY | 2024-09-30 16:50 | XMS_ITS | Encounter Summary ---
Author Organization [facility] Address [address] [place] [address] Care Team Providers Care Truck Driver Supervisor Name Role Phone Adeline Guo MD Primary Care Provider [phone] Feliciano Evans MD Unavailable Yara Harding MD Unavailable [phone] Encounter Details Date Type Department Care Team (Late Contact Info) Description 05/20/2020 Scanned Document [address] [place] [phone] Provider, Generic Social History Tobacco Use Types Packs/Day Years [...] or suspected to have Coronavirus / COVID-19? Unable to assess 04/24/2020 10:07 AM EDT documented as of this encounter Plan of Treatment Upcoming Encounters Date Type Department Care Team (Late Contact Info) Description 10/14/2024 1:00 PM EDT Consult [facility] [address] [phone] Suman Dudley MD [address] [place] [address] 10/16/2024 3:50 PM EDT Office Visit [facility] [place] [address] [facility] [address] [place] [address] Nehemias Hussein, RAFAEL [address] [facility] [address] [place] [address] documented as of this encounter Visit Diagnoses Not on filedocumented in this encounter Care Teams Truck Driver Supervisor Relationship Specialty Start Date End Date Adeline Guo MD [address] [place] [address] PCP - General Internal Medicine 03/10/20 Feliciano Evans MD [address] [place] [address],[facility] [address] [place] [address] Referring Provider 10/28/20 Yara Harding MD [address] [place] [address],[facility] [address] [place] [address] Neurology 03/20/[address] [place] [address] [address] Neurology Neurology 06/07/22 documented as of this encounter
--- OUTSIDE RECORDS SUMMARY | 2024-09-30 16:50 | XMS_ITS | Encounter Summary ---
Author Organization [facility] Address [address] [place] [address] Care Team Providers Care Event Planning Intern Name Role Phone Pcp, No Primary Care Provider Adeline Moe MD Primary Care Provider [phone] Feliciano Evans MD Unavailable Yara Harding MD Unavailable [phone] Encounter Details Date Type Department Care Team (Late st Contact Info) Description 02/25/2020 Scanned Document [facility] [place] [address] [phone] Monroe Choi MD [address] [address] Social History Tobacco Use Types Packs/Day Years Used Date Smoking Tobacco: Never Assessed Sex and Gender Information Value Date Recorded Sex Assigned at Male 02/23/2022 12:37 PM EDT Gender Identity Not on file Sexual Orientation Heterosexual (straight) 02/23 12:37 PM EDT documented as of this encounter Plan of Treatment Upcoming Encounters Date Type Department Care Team (Late st Contact Info) Description 10/14/2024 1:00 PM EDT Consult [facility] [address] [phone] Suman Dudley MD [address] [place] [address] 10/16/2024 3:50 PM EDT Office Visit [facility] [place] [address] [facility] [address] [place] [phone] Nehemias Hussein, RAFAEL [address] [facility] [address] [place] [address] documented as of this encounter Visit Diagnoses Not on filedocumented in this encounter Care Teams Event Planning Intern Relationship Specialty Start Date End Date Pcp, No [address] [place] [address] PCP - General 11/26/18 03/09/20 Adeline Guo MD [address] [place] [address] PCP - General Internal Medicine 03/10/20 Feliciano Evans MD [address] [place] [address] Referring Provider 10/28/20 Yara Harding MD [address] [place] [address] Neurology 03/20/[address] [place] [address] [address] Neurology Neurology 06/07/22 documented as of this encounter
--- OUTSIDE RECORDS SUMMARY | 2024-09-30 16:50 | XMS_ITS | Continuity of Care Document ---
Author Organization [facility] Address [address] [place] [address] Care Team Providers Care Casework Supervisor Name Role Phone Curt Wiseman MD Primary Care Provider [phone] Encounters Date Type Department Care Team Description 10/14/2023 [facility] [address] [facility] [address] [place] [phone] Austin Sethi MD E-prescribing Refill Request 10/10/2023 Refill [facility] [address] [facility] [address] [place] [phone] Austin Sethi MD Refill Request 06/25/2023 Refill [facility] [address] [facility] [address] [place] [phone] Austin Sethi MD Med Change Request; Refill Request 05/22/2023 Refill [facility] [address] [facility] [address] [place] [address] Austin Sethi MD E-prescribing Refill Request 03/20/2023 Telephone [facility] [address] [facility] [address] [place] [address] Austin Sethi MD Medication Check 02/20/2023 Refill [facility] [address] [facility] [address] [place] [address] Austin Sethi MD E-prescribing Refill Request 01/10/2023 Refill [facility] [address] [facility] [address] [place] [address] Austin Sethi MD E-prescribing Refill Request 08/08/2022 Refill [facility] [address] [facility] [address] [place] [address] Austin Sethi MD E-prescribing Refill Request 07/25/2022 Telephone [facility] [address] [facility] [address] [place] [address] Austin Sethi MD Appointment 06/07/2022 4:30 PM EDT Office Visit [facility] [address] [facility] [address] [place] [address] Austin Sethi MD Essential tremor (Primary Dx) 05/23/2022 Refill [facility] [address] [facility] [address] [place] [address] Austin Sethi MD E-prescribing Refill Request 03/11/2022 Telephone [facility] [address] [facility] [address] [place] [address] Austin Sethi MD Follow Up 03/07/2022 8:15 AM EDT Office Visit [facility] [address] [facility] [address] [place] [address] Austin Sethi MD Essential tremor (Primary Dx) 02/22/2022 Telephone [facility] [address] [facility] [address] [place] [address] Austin Sethi MD Appointment 01/19/2022 Telephone [facility] [address] [facility] [address] [place] [address] Austin Sethi MD Follow Up 12/24/2021 Refill [facility] [address] [facility] [address] [place] [address] Austin Sethi MD 12/11/2021 Refill [facility] [address] [facility] [address] [place] [address] Austin Sethi MD E-prescribing Refill Request 11/15/2021 Telephone [facility] [address] [facility] [address] [place] [address] Austin Sethi MD Follow Up (DBS adjustment ) 10/29/2021 4:00 PM EDT Office Visit [facility] [address] [facility] [address] [place] [address] Austin Sethi MD Essential tremor (Primary Dx) 10/28/2021 Refill [facility] [address] [facility] [address] [place] [address] Toma Salas MD E-prescribing Refill Request 09/26/2021 Refill [facility] [address] [facility] [address] [place] [address] Austin Sethi MD E-prescribing Refill Request 09/12/2021 Refill [facility] [address] [facility] [address] [place] [address] Austin Sethi MD E-prescribing Refill Request 07/23/2021 Telephone [facility] [address] [facility] [address] [place] [address] Lorna Prado, SONALI Appointment 05/03/2021 3:30 PM EDT Office Visit [facility] [address] [facility] [address] [place] [address] Austin Sethi MD Essential tremor (Primary Dx) 04/16/2021 Telephone [facility] [address] [facility] [address] [place] [address] Austin Sethi MD Appointment 01/29/2021 4:45 PM EDT Office Visit [facility] [address] [facility] [address] [place] [address] Austin Sethi MD Essential tremor (Primary Dx) 12/31/2020 Telephone [facility] [address] [facility] [address] [place] [address] Austin Sethi MD Follow Up (DBS) 12/25/2020 Telephone [facility] [address] [facility] [address] [place] [address] uAstin Sethi MD Medication Problem (Lorazepam) 12/24/2020 Telephone [facility] [address] [facility] [address] [place] [address] Austin Sethi MD Prior Authorization Request (lorazepam) 12/22/2020 Travel 12/22/2020 4:30 PM EDT Office Visit [facility] [address] [facility] [address] [place] [address] Austin Sethi MD Essential tremor (Primary Dx); PTSD (post-traumatic stress disorder) 12/15/2020 Refill [facility] [address] [facility] [address] [place] [address] Austin Sethi MD Refill Request (Xanax 0.25) 12/10/2020 10:30 AM EDT Office Visit [facility] [address] [facility] [address] [place] [address] Austin Sethi MD Essential tremor (Primary Dx) 12/09/2020 Telephone [facility] [address] [facility] [address] [place] [address] Austin Sethi MD Follow Up (DBS) 12/08/2020 Travel 12/08/2020 8:00 AM EDT Office Visit [facility] [address] [facility] [address] [place] [address] Austin Sethi MD Essential tremor (Primary Dx) 11/25/2020 Telephone [facility] [address] [facility] [address] [place] [address] Austin Sethi MD Other 10/30/2020 Refill [facility] [address] [facility] [address] [place] [address] Austin Sethi MD E-prescribing Refill Request 10/30/2020 Telephone [facility] [address] [facility] [address] [place] [address] Austin Sethi MD Medication Problem (primidone) 10/20/2020 Travel 10/20/2020 8:00 AM EDT Consult (Initial) [facility] [address] [facility] [address] [place] [address] Austin Sethi MD Essential tremor (Primary Dx) 10/01/2020 Telephone [facility] [address] [facility] [address] [place] [address] Austin Sethi MD Appointment 03/13/2018 Orders Only [facility] Cardiology [address] [facility] [address] [place] [address] Jorge Pascual DO 03/13/2018 Orders Only [facility] [address] [address] Yamilex Langston NP 03/13/2018 3:30 PM EDT Office Visit [facility] [address] [address] Yamilex Langston NP Preop examination (Primary Dx); Gastroesophageal reflux disease, esophagitis presence not specified; Hyperlipidemia, unspecified hyperlipidemia type; Hypertension, unspecified type; Benign prostatic hyperplasia, unspecified whether lower urinary tract symptoms present; Mood disorder (HCC); RLS (restless legs syndrome); SAMMIE (obstructive sleep apnea) 03/13/2018 3:00 PM EDT Nurse Visit [facility] [address] [address] Poonam Pedersen, RN Gastroesophageal reflux disease, esophagitis presence not specified (Primary Dx) 02/19/2018 2:45 PM EDT Consult (Initial) [facility] General Surgery [address] [address] Trevor Lo MD Gastroesophageal reflux disease without esophagitis (Primary Dx) 11/14/2017 Minor Procedure/Test GASTRO UNSPECIFIED Pricila Hagen MD Allergies No known active allergies Medications Metoprolol Succinate 25 MG TABLET SR 24 HR 1 TABLET DAILY Active Finasteride 5 MG Tab 1 TABLET DAILY Active AmLODIPine Besylate 5 MG Tab 2 TABLET DAILY Active Aspirin 81 MG Tab 1 TABLET DAILY Active Lamotrigine 200 MG Tab 1 TABLET TWICE DAILY Active Ezetimibe (ZETIA) 10 MG Tab 1 TABLET DAILY Active Atorvastatin Calcium 80 MG Tab Take by mouth 1 (one) time each day Active Omeprazole (PriLOSEC) [address] capsule Take 40 mg by mouth in the morning and at bedtime 08/25/2020 Active Tadalafil (CIALIS) 5 MG tablet Take 5 mg by mouth 1 (one) time each day 10/13/2021 Active Lamotrigine (LaMICtal) 25 MG tablet 25 mg every night 01/20/2021 Active Losartan Potassium-HCTZ (HYZAAR) 100-12.5 MG per tablet Take 1 tablet by mouth 1 (one) time each day 10/29/2021 Active traZODone HCl (DESYREL) 50 MG tablet Take one tablet (50 mg total) by mouth every night 30 tablet 06/07/2022 Active Primidone (MYSOLINE) 50 MG tablet TAKE 3 TABLETS BY MOUTH IN THE MORNING AND IN THE EVENING AND CALL OFFICE FOR APPT. 180 tablet 06/26/2023 Active Active Problems No known active problems Social History Smoking Status as of 09/30/2024 Tobacco Use Types Packs/Day Years Used Date Smoking Tobacco: Never Assessed Intimate Partner Violence Answer Date R ecorded Fear of Current or Ex-Partner Not on file Emotionally Abused Not on file 03/20/2023 Physically Abused Not on file 03/20/2023 Sexually Abused Not on file 03/20/2023 Feel Safe at Home Not on file 03/20/2023 Sex and Gender Information Value Date Recorded Sex Assigned at Not on file Legal Sex Male 10:02 AM EDT Gender Identity Not on file Sexual Orientation Not on file Last Filed Vital Signs Vital Sign Reading Time Taken Comments Blood Pressure 139/75 06/07/2022 4:55 PM EDT Pulse 66 06/07/2022 4:55 PM EDT Temperature 36.7 ??C (98 ??F) 03/13/2018 3:36 PM EDT Respiratory Rate 14 03/13/2018 3:36 PM EDT Oxygen Saturation - - Inhaled Oxygen Concentration - - Weight 98.9 kg (218 lb) 10/29/2021 4:34 PM EDT Height 182.9 cm (6') 03/13/2018 3:36 PM EDT Body Mass Index 29.57 03/13/2018 3:36 PM EDT Plan of Treatment Not on file Procedures * Due to [place] state law, this organization might not be sharing negative HIV tests. Procedure Name Priority Date/Time Associated Diagnosis Comments ELECTRONIC ANALYSIS OF IMPLANTED NPGT WITH BRAIN NPGT 1ST 15MINS FACE TO FACE WITH HC PROFESSIONAL. Routine 06/07/2022 5:55 PM EDT Essential tremor ELECTRONIC ANALYSIS OF IMPLANTED NPGT W BRAIN NPGT EA ADDL 15MINS FACE TO FACE WITH HC PROFESSIONAL. Routine 03/07/2022 9:32 AM EDT Essential tremor ELECTRONIC ANALYSIS OF IMPLANTED NPGT WITH BRAIN NPGT 1ST 15MINS FACE TO FACE WITH HC PROFESSIONAL. Routine 03/07/2022 9:32 AM EDT Essential tremor ELECTRONIC ANALYSIS OF IMPLANTED NPGT WITH BRAIN NPGT 1ST 15MINS FACE TO FACE WITH HC PROFESSIONAL. Routine 11/02/2021 12:49 PM EDT Essential tremor ELECTRONIC ANALYSIS OF IMPLANTED NPGT WITH BRAIN NPGT 1ST 15MINS FACE TO FACE WITH HC PROFESSIONAL. Routine 05/10/2021 10:54 AM EDT Essential tremor ELECTRONIC ANALYSIS OF IMPLANTED NPGT W BRAIN NPGT EA ADDL 15MINS FACE TO FACE WITH HC PROFESSIONAL. Routine 02/21/2021 12:00 PM EDT Essential tremor ELECTRONIC ANALYSIS OF IMPLANTED NPGT WITH BRAIN NPGT 1ST 15MINS FACE TO FACE WITH HC PROFESSIONAL. Routine 02/21/2021 12:00 PM EDT Essential tremor ELECTRONIC ANALYSIS OF IMPLANTED NPGT W BRAIN NPGT EA ADDL 15MINS FACE TO FACE WITH HC PROFESSIONAL. Routine 01/29/2021 6:01 PM EDT Essential tremor ELECTRONIC ANALYSIS OF IMPLANTED NPGT WITH BRAIN NPGT 1ST 15MINS FACE TO FACE WITH HC PROFESSIONAL. Routine 01/29/2021 6:01 PM EDT Essential tremor ELECTRONIC ANALYSIS OF IMPLANTED NPGT W BRAIN NPGT EA ADDL 15MINS FACE TO FACE WITH HC PROFESSIONAL. Routine 12/08/2020 9:53 AM EDT Essential tremor ELECTRONIC ANALYSIS OF IMPLANTED NPGT WITH BRAIN NPGT 1ST 15MINS FACE TO FACE WITH HC PROFESSIONAL. Routine 12/08/2020 9:53 AM EDT Essential tremor EKG-TO BE READ & BILLED BY ADULT OR PEDIATRIC CARDIOLOGY Routine 03/13/2018 4:18 PM EDT Gastroesophageal reflux disease, esophagitis presence not specified Hyperlipidemia, unspecified hyperlipidemia type Hypertension, unspecified type Benign prostatic hyperplasia, unspecified whether lower urinary tract symptoms present Mood disorder (HCC) RLS (restless legs syndrome) PROTHROMBIN TIME (PT) (INR), BLOOD Routine 03/13/2018 4:11 PM EDT Preop examination Gastroesophageal reflux disease, esophagitis presence not specified Hyperlipidemia, unspecified hyperlipidemia type Hypertension, unspecified type Benign prostatic hyperplasia, unspecified whether lower urinary tract symptoms present Mood disorder (HCC) RLS (restless legs syndrome) HEPATIC FUNCTION PANEL (ALT,AST,ALK PH,BILI'S,TP,ALB) Routine 03/13/2018 4:11 PM EDT Preop examination Gastroesophageal reflux disease, esophagitis presence not specified Hyperlipidemia, unspecified hyperlipidemia type Hypertension, unspecified type Benign prostatic hyperplasia, unspecified whether lower urinary tract symptoms present Mood disorder (HCC) RLS (restless legs syndrome) CBC INCLUDES DIFFERENTIAL AND PLATELET COUNT Routine 03/13/2018 4:11 PM EDT Preop examination Gastroesophageal reflux disease, esophagitis presence not specified Hyperlipidemia, unspecified hyperlipidemia type Hypertension, unspecified type Benign prostatic hyperplasia, unspecified whether lower urinary tract symptoms present Mood disorder (HCC) RLS (restless legs syndrome) BASIC METABOLIC PANEL WITH (GFR) Routine 03/13/2018 4:11 PM EDT Preop examination Gastroesophageal reflux disease, esophagitis presence not specified Hyperlipidemia, unspecified hyperlipidemia type Hypertension, unspecified type Benign prostatic hyperplasia, unspecified whether lower urinary tract symptoms present Mood disorder (HCC) RLS (restless legs syndrome) XRAY ESOPHAGUS 11/14/2017 Results * Due to [place] state law, this organization might not be sharing negative HIV tests. * EKG-TO BE READ AND BILLED BY CARDIOLOGY (03/13/2018 4:18 PM EDT) VENTRICULAR RATE 62 BPM MUS E EKG SYSTEM ATRIAL RATE 62 BPM MUSE EKG SYSTEM P-R INTERVAL 198 ms MUSE EK G SYSTEM QRS DURATION 86 ms MUSE EK G SYSTEM QT 400 ms MUSE EKG SYSTEM QTC 406 ms MUSE EKG SYSTEM P AXIS 46 degrees MUSE EKG SYSTEM R AXIS 37 degrees MUSE EKG SYSTEM T AXIS 51 degrees MUSE EKG SYSTEM EKG INTERPRETATION Normal sinus rhythm Normal ECG No previous ECGs available Confirmed by JORGE PASCUAL ([id number]) on 03/13/2018 8:44:32 PM MUSE EKG SYSTEM 03/13/2018 4:18 PM EDT 03/13/2018 8:44 PM EDT Yamilex Langston TRANSPORTATION DESIGN ENGINEER CARDIOVASCULAR-WITH INBSK T RTG Final Result MUSE EKG SYSTEM * PROTHROMBIN TIME (PT) (INR), BLOOD (03/13/2018 4:11 PM EDT) INR 1.0 [facility] Comment: Reference Range ? 0.9-1.1 Moderate-intensity Warfarin Therapy 2.0-3.0 Higher-intensity Warfarin Therapy ?? 3.0-4.0 PT 10.7 9.0 - 11.5 sec [facility] Comment: For more information on this test, go to: [email or web address] 03/13/2018 4:11 PM EDT 03/13/2018 9:37 PM EDT Narrative Resulting Agency Comment [id number] us Yamilex Langston TRANSPORTATION DESIGN ENGINEER LAB SAME DAY RESULT Final Result [facility] [address] [place] [address] * CBC INCLUDES DIFFERENTIAL AND PLATELET COUNT (03/13/2018 4:11 PM EDT) WBC 5.2 3.8 - 10.8 Thousand/u L [facility] RBC 4.39 4.20 - 5.80 Million/uL [facility] Hemoglobin 13.4 13.2 - 17.1 g/dL [facility] Hematocrit 39.0 38.5 - 50.0 % [facility] MCV 88.8 80.0 - 100.0 fL [facility] MCH 30.5 27.0 - 33.0 pg [facility] MCHC 34.4 32.0 - 36.0 g/dL [facility] RDW 13.0 11.0 - 15.0 % [facility] PLT 208 140 - 400 Thousand/u L [facility] MPV 11.0 7.5 - 12.5 fL [facility] Neutrophils # 3281 1500 - 7800 cells/uL [facility] Lymphocytes # 1212 850 - 3900 cells/uL [facility] Monocytes # 458 200 - 950 cells/uL [facility] Eosinophils # 229 15 - 500 cells/uL [facility] Basophils # 21 0 - 200 cells/uL [facility] Neutrophils % 63.1 % [facility] Lymphocytes % 23.3 % [facility] Monocytes % 8.8 % [facility] Eosinophils % 4.4 % [facility] Basophils % 0.4 % [facility] 03/13/2018 4:11 PM EDT 03/13/2018 9:37 PM EDT Narrative Resulting Agency Comment [id number] Yamilex Langston TRANSPORTATION DESIGN ENGINEER LAB SAME DAY RESULT Final Result Performing Organization Address City/State/[facility] Co de Phone Number [facility] [address] [place] [address] * HEPATIC FUNCTION PANEL (ALT,AST,ALK PH,BILI'S,TP,ALB) (03/13/2018 4:11 PM EDT) Protein Total (Serum) 6.7 6.1 - 8.1 g/dL [facility] Albumin 4.2 3.6 - 5.1 g/dL [facility] Globulin 2.5 1.9 - 3.7 g/dL (calc) [facility] Albumin/Globulin 1.7 1.0 - 2.5 (calc) [facility] Bilirubin Total 0.4 0.2 - 1.2 mg/dL [facility] Bilirubin Direct 0.1 < OR = 0.2 mg/dL [facility] Bilirubin Indirect 0.3 0.2 - 1.2 mg/dL (calc) [facility] Alkaline phosphatase 66 40 - 115 U/L [facility] AST (SGOT) 21 10 - 35 U/L [facility] ALT (SGPT) 30 9 - 46 U/L [facility] 03/13/2018 4:11 PM EDT 03/13/2018 9:37 PM EDT Narrative Resulting Agency Comment [id number] us Yamilex Langston TRANSPORTATION DESIGN ENGINEER LABORATORY Final Res ult [facility] [address] [place] [address] * BASIC METABOLIC PANEL WITH (GFR) (03/13/2018 4:11 PM EDT) Glucose 98 65 - 99 mg/dL [facility] Comment:Fasting reference in terval Urea Nitrogen Blood (BUN) 20 7 - 25 mg/dL [facility] Creatinine 1.05 0.70 - 1.25 mg/dL [facility] Comment: For patients >49 years of age, the reference limit for Creatinine is approximately 13% higher for people identified as -French. GFR 74 > OR = 60 mL/min/1 .73m2 [facility] GFR () 86 > OR = 60 mL/min/1 .73m2 [facility] BUN/Creatinine Ratio NOT APPLICABLE 6 - 22 (calc) [facility] Sodium 142 135 - 146 mmol/L [facility] Potassium 4.6 3.5 - 5.3 mmol/L [facility] Chloride 107 98 - 110 mmol/L [facility] Carbon dioxide 28 20 - 32 mmol/L [facility] Calcium 9.2 8.6 - 10.3 mg/dL [facility] 03/13/2018 4:11 PM EDT 03/13/2018 9:37 PM EDT Narrative [facility] - 03/14/2018 1:31 AM EDT Please note that this estimated GFR does not include an adjustment for the patient's height or weight, and can therefore, be viewed as reliable only for patients with heights between 60 and 72 . More precise quantification using a 24-hour urine sample or height-based algorithm is recommended for patients outside of this range of height and for those individuals with more precise needs for GFR calculation. Resulting Agency Comment [id number] Yamilex Langston TRANSPORTATION DESIGN ENGINEER LABORATORY Final Res ult [facility] [address] [place] [address] * XRAY ESOPHAGUS (11/14/2017) 11/14/2017 us Pricila Hagen MD GENERAL IMAGING- OTHER Final Result Visit Diagnoses Diagnosis Start Date Gastroesophageal reflux disease without esophagitis Esophageal reflux 02/19/2018 Gastroesophageal reflux disease, esophagitis presence not specified 03/13/2018 Preop examination Preoperative examination, unspecified 03/13/2018 Gastroesophageal reflux disease, esophagitis presence not specified 03/13/2018 Hyperlipidemia, unspecified hyperlipidemia type 03/13/2018 Hypertension, unspecified type 03/13/2018 Benign prostatic hyperplasia, unspecified whether lower urinary tract symptoms present 03/13/2018 Mood disorder Unspecified episodic mood disorder 03/13/2018 RLS (restless legs syndrome) Restless legs syndrome (RLS) 03/13/2018 Preop examination Preoperative examination, unspecified 03/13/2018 Gastroesophageal reflux disease, esophagitis presence not specified 03/13/2018 Hyperlipidemia, unspecified hyperlipidemia type 03/13/2018 Hypertension, unspecified type 03/13/2018 Benign prostatic hyperplasia, unspecified whether lower urinary tract symptoms present 03/13/2018 Mood disorder Unspecified episodic mood disorder 03/13/2018 RLS (restless legs syndrome) Restless legs syndrome (RLS) 03/13/2018 SAMMIE (obstructive sleep apnea) Obstructive sleep apnea (adult) (pediatric) 03/13/2018 Gastroesophageal reflux disease, esophagitis presence not specified 03/13/2018 Essential tremor Essential and other specified forms of tremor 10/20/2020 Essential tremor Essential and other specified forms of tremor 12/08/2020 Essential tremor Essential and other specified forms of tremor 12/10/2020 Essential tremor Essential and other specified forms of tremor 12/22/2020 PTSD (post-traumatic stress disorder) Posttraumatic stress disorder 12/22/2020 Essential tremor Essential and other specified forms of tremor 01/29/2021 Essential tremor Essential and other specified forms of tremor 05/03/2021 PTSD (post-traumatic stress disorder) Posttraumatic stress disorder 09/26/2021 PTSD (post-traumatic stress disorder) Posttraumatic stress disorder 10/28/2021 Essential tremor Essential and other specified forms of tremor 10/29/2021 Essential tremor Essential and other specified forms of tremor 03/07/2022 Essential tremor Essential and other specified forms of tremor 06/07/2022 Care Teams Casework Supervisor Relationship Specialty Start Date [place] [address] PCP - General Family Medicine 02/10/21
--- OUTSIDE RECORDS SUMMARY | 2024-09-30 16:50 | XMS_ITS | Encounter Summary ---
Author Organization Formerly [facility] Address [address] [place] [address] Care Team Providers Care Terrazzo Finisher Helper Name Role Phone Adeline Guo MD Primary Care Provider [phone] Feliciano Evans MD Unavailable Yara Harding MD Unavailable [phone] Reason for Visit * Reason Comments Essential Tremor Encounter Details Date Type Department Care Team (Late st Contact Info) Description 09/09/2024 1:00 PM EST Consult [facility] Neurology [address] [phone] Suman Dudley MD [address] [place] [address] [phone] Essential tremor (Primary Dx); Status post deep brain stimulator placement Social History Tobacco Use Types Packs/Day Years Used Date Smoking Tobacco: Never Smokeless Tobacco: Never Tobacco Cessation:Counseling Given: Not Answered Alcohol Use Standard Drinks/Week Comments Yes 1 (1 standard drink = 0.6 oz pur e alcohol) 1x/month Sex and Gender Information Value Date Recorded Sex Assigned at Male 02/23/2022 12:37 PM EDT Gender Identity Not on file Sexual Orientation Heterosexual (straight) 02/23 12:37 PM EDT documented as of this encounter Last Filed Vital Signs Vital Sign Reading Time Taken Comments Blood Pressure 150/76 09/09/2024 12:55 PM EST Pulse 73 09/09/2024 12:55 PM EST Temperature - - Respiratory Rate - - Oxygen Saturation - - Inhaled Oxygen Concentration - - Weight 99.8 kg (220 lb) 09/09/2024 12:55 PM EST Height 185.4 cm (6' 1 ) 09/09/2024 12:55 PM EST Body Mass Index 29.03 09/09/2024 12:55 PM EST documented in this encounter Patient Instructions * Patient Instructions* Suman Dudley MD - 09/09/2024 4:24 PM EST Bj was seen today for follow up for DBS management for essential tremors. He reports his tremors are stable with using DBS and taking primidone but has had issue with slurred speech. His DBS system was interrogated and was found to be working appropriately. Changes were made to his DBS stimulation as documented in this note to help with tremors and not cause side effects. Unfortunately, he cannot get MRI's due to his abnormal impedences of one contact. If considering joint imaging, he can get CT and ultrasound imaging. Follow up in 4-6 weeks for DBS programming. documented in this encounter Progress Notes * Suman Dudley MD - 09/05/2024 11:46 AM EST [facility] Name: Bj Wolf Date of : 1950 Age: 74 y.o. CC: tremors, slurred speech History of Present Illness Bj Wolf is a left-handed 74 y.o. male who is here today to follow up on diagnosis and management of essential tremor treated with DBS and oral medication. He is s/p B/L ViM DBS (medtronic percept 11/2020). He had been followed by [facility] movement disorders specialist Dr. Rosalina Harding in the past. Per medical chart review: He had a good lesion effect from DBS implantation but has had problematic adverse effects of stimulation. Adverse effects include face/tongue dystonia, dysarthria, impaired mentation. He has had interest in making frequent adjustments to DBS stimulation on his own. He turns his DBS off sometimes. His pulse width had been reduced significantly to try to help with side effects and battery longevity. Last Visit: Bj Wolf was last seen 01/08/24 at which time he reported that his tremors were stable with using DBS and taking primidone. His DBS system was interrogated and was found to be working appropriately. No changes made to his DBS system or medication regimen. He planned on getting MRI knee imaging for which I said I would have someone from [employer] reach out to him to coordinate in [place]. On 07/19/24, Dr. Choi's office called to see if patient could be seen sooner as he recently developed slurring of speech, biting his tongue while speaking. Patient believed these symptoms were due to his DBS system. Interval Hx: Since Bj Wolf last visit, Bj Wolf reports he feels if he leaves his DBS on for a few weeks or month he feels his speech is more slurred. He has bit the left side of his inner cheek and tongue. He turns off the DBS often and will notice improvement of his speech after leaving it off for a few days. He reports waxing and waning of severity of his tremors irregardless of DBS stimulation changes. He has headaches a few days per month. He underwent right knee surgery in 2019 and his right knee is bothering him and he is being considered for another right knee surgery. 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[facility]) PONV (postoperative nausea and vomiting) Sleep apnea Uses Cpap TBI (traumatic brain injury) ([facility]) Skull fracture SOC: Social History Socioeconomic History Marital status: Spouse name: Not on file Number of children: Not on file Years of education: Not on file Highest education level: Not on file Occupational History Not on file Tobacco Use Smoking status: Never Smokeless tobacco: Never Vaping Use Vaping status: Never Used Substance and Sexual Activity Alcohol use: Yes Alcohol/week: 1.0 standard drink of alcohol Types: 1 Cans of beer per week Comment: 1x/month Drug use: Never Sexual activity: Not Currently Partners: Female Other Topics Concern Not on file Social History Narrative Not on file Social Determinants of Health Financial Resource Strain: Not on file Food Insecurity: Not on file Transportation Needs: Not on file Physical Activity: Not on file Stress: Not on file Social Connections: Not on file Housing Stability: Not on file FMH: Family History Problem Relation Age of Onset Tremor Mother Heart attack Sister MEDS: Current Outpatient Medications Medication Sig Dispense Refill acetaminophen (TYLENOL) 325 MG tablet Take 3 tablets (975 mg total) by mouth every 8 (eight) hours around the clock. (Patient taking differently: Take 2 tablets (650 mg total) by mouth every 8 (eight) hours around the clock. Patient is taking 1500 mg since Knee replacement) 270 tablet 0 albuterol (PROVENTIL HFA; VENTOLIN HFA) 108 (90 Base) MCG/ACT inhaler albuterol sulfate HFA 90 mcg/actuation aerosol inhaler INHALE 2 PUFFS INTO THE LUNGS EVERY 4 HOURS NEEDED FOR COUGH, WHEEZING OR SHORTNESS OF BREATH. amLODIPine (NORVASC) 10 MG tablet amlodipine 10 mg tablet TAKE 1 TABLET BY MOUTH EVERY DAY amoxicillin (AMOXIL) 500 MG capsule Please take 4 CAPS of 500 MG one hour before your next dental appointment. Aspirin 81 MG Cap daily. atorvastatin (LIPITOR) 80 MG tablet atorvastatin 80 mg tablet TAKE 1 TABLET BY MOUTH EVERY DAY chlorhexidine (PERIDEX) 0.12 % oral solution TAKE 15 ML BY MOUTH 2 TIMES A DAY, GARGLE AND SPIT OUT diphenhydrAMINE-acetaminophen (TYLENOL PM) 25-500 MG Tab Take 2 tablets by mouth nightly as needed. finasteride (PROSCAR) 5 MG tablet finasteride 5 mg tablet TAKE 1 TABLET BY MOUTH EVERY DAY gabapentin (NEURONTIN) 100 MG capsule Take 2 capsules (200 mg total) by mouth daily. gabapentin (NEURONTIN) 400 MG capsule TAKE 1 CAPSULE BY MOUTH EVERY NIGHT lamoTRIgine (LaMICtal) 200 MG tablet Take 1 tablet (200 mg total) by mouth 2 (two) times a day. lamoTRIgine (LaMICtal) 25 MG tablet Take 1 tablet (25 mg total) by mouth daily. losartan-hydrochlorothiazide (HYZAAR) 100-12.5 MG per tablet losartan 100 mg- hydrochlorothiazide 12.5 mg tablet TAKE 1 TABLET BY MOUTH EVERY DAY meloxicam (MOBIC) 15 MG tablet Take 1 tablet (15 mg total) by mouth. metoPROLOL SUCCINATE (TOPROL-XL) 50 MG 24 hr tablet Take 1.5 tablets (75 mg total) by mouth nightly. Multiple Vitamin (Daily-Estefany Multivitamin) Tab Take 1 tablet by mouth. Multiple Vitamins-Minerals (CENTRUM SILVER 50+MEN PO) Centrum Silver nitroglycerin (NITROSTAT) 0.[address] 1 tablet (0.4 mg total) under the tongue. OMEprazole (PriLOSEC) 20 MG capsule Take 2 capsules (40 mg total) by mouth 2 (two) times a day. primidone (MYSOLINE) 50 MG tablet TAKE 3 TABLETS (150 MG TOTAL) BY MOUTH 3 (THREE) TIMES A DAY. (Patient taking differently: Take 3 tablets (150 mg total) by mouth nightly. 2 tabs TID) 810 tablet 1 psyllium (METAMUCIL) 58.6 % powder Take 1 packet by mouth as needed. traZODone (DESYREL) 50 MG tablet trazodone 50 mg tablet TAKE 1 TO 2 TABLETS BY MOUTH EVERY DAY AT BEDTIME ALPRAZolam (XANAX) 0.25 MG tablet alprazolam 0.25 mg tablet TAKE 1 TABLET BY MOUTH ONE TO THREE TIMES A DAY ascorbic acid (VITAMIN C) 500 MG tablet TAKE 2 TABLETS BY MOUTH DAILY. DO NOT START BEFORE November. (Patient taking differently: Take 0.5 tablets (250 mg total) by mouth daily.) 60 tablet 0 b complex vitamins capsule Take 1 capsule by mouth daily. cetirizine (ZyrTEC) 10 MG tablet TAKE 1 TABLET BY MOUTH DAILY NEEDED FOR ALLERGY SYMPTOMS clotrimazole-betamethasone (LOTRISONE) cream as needed. doxycycline (VIBRAMYCIN) 100 MG capsule TAKE 1 CAPSULE ORALLY 2 TIMES A DAY ezetimibe (ZeTIA) 10 MG tablet Take 1 tablet (10 mg total) by mouth daily. ferrous sulfate 324 (65 Fe) MG Tablet Delayed Response Take 1 tablet (324 mg total) by mouth daily. fluticasone (FloNASE) 50 mcg/spray nasal spray fluticasone propionate 50 mcg/actuation nasal spray,suspension USE 1 SPRAY IN EACH NOSTRIL EVERY MORNING hydroCHLOROthiazide (HYDRODIURIL) 12.5 MG tablet Take 1 tablet (12.5 mg total) by mouth. FOR 90 DAYS ipratropium (ATROVENT) 0.06 % nasal spray into each nostril. lactulose (ENULOSE) 10 gm/15 mL solution TAKE 10 20 ML BY MOUTH TWICE A DAY NEEDED lidocaine (XYLOCAINE) 5 % ointment Apply topically 3 (three) times a day as needed. linaclotide (LINZESS) 72 mcg capsule Take 1 capsule (72 mcg total) by mouth. LORazepam (ATIVAN) 1 MG tablet Take 1 tablet (1 mg total) by mouth nightly. Takes half a tablet daily as needed nystatin (MYCOSTATIN) ointment ondansetron (ZOFRAN) 4 MG tablet Take 1 tablet (4 mg total) by mouth 3 times daily (every 8 hours) as needed for nausea or vomiting. Probiotic Product (Align) 4 MG Cap daily. tadalafil (CIALIS) 5 MG tablet tadalafil 5 mg tablet TAKE 1 TABLET BY MOUTH EVERY DAY No current facility-administered medications for this visit. Review of Systems I personally reviewed the 10 Review of Systems on the form filled out by the patient. See scanned document under Media section of chart. Physical Exam Vitals: 09/09/24 1255 BP: (!) 150/76 BP Location: Left arm Patient Position: Sitting Cuff Size: Large Pulse: 73 Weight: 99.8 kg (220 lb) Height: 1.854 m (6' 1 ) General Exam General: no apparent distress, cooperative, well developed, well nourished. NECK: Supple, full range of motion EXT: no clubbing, cyanosis, or edema Neurological Exam Mental Status Alert and oriented to person, place, time, and situation, attention span within normal limits, concentration intact, fund of knowledge appropriate. Language: fluency normal but mild dysarthria Cranial Nerves II: PERRL III, IV, : EOMI, nystagmus absent, ptosis absent V: facial sensation intact to light touch VII: facial strength symmetric and strong bilaterally; speech - no dysarthria VIII: hearing right - NL and left- NL X: uvula/palate midline and normal XI: sternocleidomastoid: right - 5/5, left - 5/5; trapezius: right - 5/5, left - 5/5 XII: tongue midline Motor/Musculoskeletal There is no pronator drift of out-stretched arms. Muscle bulk is normal. Strength is symmetric bilaterally. Gait Normal stance and stride Movement Exam: The Essential Tremor Rating Assessment Scale (TETRAS) TETRAS Performance Scale Head: No Visible Tremor Face: No visible tremor Tongue: No visible tremor Voice: No visible tremor Right Upper Limb: 1 to < 3 cm (right worse than left) Left Upper Limb: 1 to < 3 cm Right Lower Limb: No visible tremor Left Lower Limb: No visible tremor Dot Approximation: No visible tremor Standing: No visible tremor Current DBS Settings IPG: [employer] PC Lead Location: Bilateral VIM IPG Location: R chest Implant Date: 11/04/20, 11/25/20 Battery: 41% EBL: 2 yrs, 2 months Contacts Amplitude (Voltage) Pulse Width (us) Frequency (Hz) Range Impedence (ohms) Current (Milliamps) L VIM C+ 2-3- 1.9 60 195 R VIM C+ 10-11- 1.7 50 150 Programming Notes: -- (9-) causes tingling in mouth, head renner --(05/09/23): I asked him if he would mind if I made some temporary changes to see how he would respond and he agreed. Without telling him, I turned off his R ViM DBS and he still reported having slurring of his speech. Without telling him, I turned off his L ViM DBS and he still reported having slurring of his speech. Without telling him, I turned off his DBS completely and we noticed no change in his speech. All of these temporary changes were explained to him after and his DBS was turned on back to his current settings. --(09/09/24): With changing polarity of left VIM contact 3 from - to + he had worsening of his tremors. With changing this back tremors improved, no dysarthria noticed. Adding contact 9+ of the rigth VIM helped with his tremors as well. Increasing amplitude of the left VIM to 3.0mA he had developmentof tingling of the rear of the top of his mouth that resolved with reducing amplitude down to 2.5mA. I changed the frequency to be the same for both sides which allowed reduction of the frequency of the left VIM and increase of the right VIM, adjustments tolerated. Further increase of frequency of both sides tolerated without side effects, tremors improved. Tingling of roof of mouth resolved withbring right VIM pulse width back down from 60us to 50us, this allowed for further increase of amplitude of the right VIM. Assessment 74 y.o. male who is here today to follow up on diagnosis and management of essential tremor treatedwith DBS and oral medication FINAL DBS SETTINGS IPG: [employer] PC Lead Location: Bilateral VIM IPG Location: R chest Contacts Amplitude (Voltage) Pulse Width (us) Frequency (Hz) Range Impedence (ohms) Current (Milliamps) L VIM 1+ 2-3- 2.2 60 170 R VIM 9+ 10-11- 3.5 50 170 Plan Patient Instructions Bj was seen today for follow up for DBS management for essential tremors. He reports his tremors are stable with using DBS and taking primidone but has had issue with slurred speech. His DBS system was interrogated and was found to be working appropriately. Changes were made to his DBS stimulation as documented in this note to help with tremors and not cause side effects. Unfortunately, he cannot get MRI's due to his abnormal impedences of one contact. If considering joint imaging, he can get CT and ultrasound imaging. Follow up in 4-6 weeks for DBS programming. Suman Dudley MD 09/09/2024 4:26 PM I spent 85 minutes with the patient, with >50% of the time spent counseling regarding diagnosis and treatment as follows. Counseling included Diagnostic results, impressions, and/or recommended diagnostic studies, Prognosis, Risks and benefits of management (treatment) options, Instructions for management (treatment) and/or follow-up, Importance of compliance with chosen management (treatment) options, Risk factor reduction, Patient and family education. Professional Bsia-uz-Wrie Time for Brain Neurostimulator Analysis with Programming. Total time spent programming the patient was 40 minutes. X Time Spent Programming Coding Less than 8 minutes Not Reported 8-22 minutes 50374 x 1 23-37 minutes 04026 x 1 + 42572 x 1 x 38-52 minutes 45107 x 1 + 72587 x 2 53-67 minutes 62486 x 1 + 66447 x 3 68 [place] [address] Time Spent Analyzing Percept Data Coding 0-30 minutes Not Reported 31-75 minutes 67154 75 minutes or longer 94863 x 1 + 43372 x 1 documented in this encounter Plan of Treatment Upcoming Encounters Date Type Department Care Team (Late st Contact Info) Description 10/14/2024 1:00 PM EDT Consult [facility] Neurology [address] [phone] Suman Dudley MD [address] [place] [address] 10/16/2024 3:50 PM EDT Office Visit [facility] Neurology [address] [phone] Nehemias Hussein APRN [address] [place] [address] documented as of this encounter Visit Diagnoses Diagnosis Essential tremor- Primary Status post deep brain stimulator placement documented in this encounter Care Teams Terrazzo Finisher Helper Relationship Specialty Start Date End Date Adeline Guo MD [address] [place] [phone] PCP - General Internal Medicine 03/10/20 Feliciano Evans MD [address] [place], [place] [address] [place] [address] Referring Provider 10/28/20 Yara Harding MD [address] [place] [address],[facility] [address] [facility] [place] [address] Neurology 03/20/23 Austin Sethi [address] [place] [address] Neurology Neurology 06/07/22 documented as of this encounter
--- OUTSIDE RECORDS SUMMARY | 2024-09-30 16:50 | XMS_ITS | Encounter Summary ---
Author Organization [facility] Address [address] [place] [address] Care Team Providers Care Corncob Pipe Supervisor Name Role Phone Adeline Guo MD Primary Care Provider [phone] Feliciano Evans MD Unavailable Yara Harding MD Unavailable [phone] Encounter Details Date Type Department Care Team (Late st Contact Info) Description 07/19/2024 Telephone [facility] Neurology [address] [phone] Suman Dudley MD [address] [place] [address] Social History Tobacco Use Types Packs/Day Years [...] PM EDT documented as of this encounter Miscellaneous Notes * Telephone Encounter - Leta Price MA - 07/19/2024 2:02 PM EST Called and lm for patient to call back and confirm if he wants the appt * Telephone Encounter - Leta Price MA - 07/19/2024 10:[address] Choi Neurosurgery called on patient's behalf asking for a sooner appt for DBS. He is slurring his speech and he has biting his tongue when trying to speak. He believes is DBS related and wants to be seen sooner. documented in this encounter Plan of Treatment Upcoming Encounters Date Type Department Care Team (Late st Contact Info) Description 10/14/2024 1:00 PM EDT Consult [facility] Neurology [address] [phone] Suman Dudley MD [address] [place] [address] 10/16/2024 3:50 PM EDT Office Visit [facility] Neurology [address] [phone] Nehemias Hussein APRN [address] [address] documented as of this encounter Visit Diagnoses Not on filedocumented in this encounter Care Teams Corncob Pipe Supervisor Relationship Specialty Start Date End Date Adeline Guo MD [address] [place] [address] PCP - General Internal Medicine 03/10/20 Feliciano Evans MD [address] [place] [address] Referring Provider 10/28/20 Yara Harding MD [address] [place] [address] Neurology 03/20/23 Austin Sethi [address] [place] [address] Neurology Neurology 06/07/22 documented as of this encounter
--- OUTSIDE RECORDS SUMMARY | 2024-09-30 16:50 | XMS_ITS | Encounter Summary ---
Author Organization [facility] Address [address] [place] [address] Care Team Providers Care Feed Preparation Operator Name Role Phone Adeline Guo MD Primary Care Provider [phone] Feliciano Evans MD Unavailable Yara Harding MD Unavailable [phone] Encounter Details Date Type Department Care Team ([facility] Contact Info) Description 04/07/2020 Scanned Document [facility] Neurosurgery [address] [phone] Monroe Choi MD [address] [place] [address] [phone] Social History Tobacco Use Types Packs/Day Years [...] Upcoming Encounters Date Type Department Care Team ([facility] Contact Info) Description 10/14/2024 1:00 PM EDT Consult [facility] Neurology [address] [phone] Suman Dudley MD 35 [facility] 6 [place] [address] 10/16/2024 3:50 PM EDT Office Visit [facility] Neurology [place] 35 [facility] 6 [place] [phone] Nehemias Hussein APRN 35 [facility] 6 [place] [address] documented as of this encounter Visit Diagnoses Not on filedocumented in this encounter Care Teams Feed Preparation Operator Relationship Specialty Start Date End Date Adeline Guo MD [address] [place] [address] PCP - General Internal Medicine 03/10/20 Feliciano Evans MD [address] [place] [address] Referring Provider 10/28/20 Yara Harding MD [address] [place] [address] Neurology 03/20/[address] [address] Neurology Neurology 06/07/22 documented as of this encounter
--- OUTSIDE RECORDS SUMMARY | 2024-09-30 16:50 | XMS_ITS | Encounter Summary ---
Author Organization [facility] Address [address] [place] [address] Care Team Providers Care Chlorine Cells Operator Name Role Phone Adeline Guo MD Primary Care Provider [phone] Feliciano Evans MD Unavailable Yara Harding MD Unavailable [phone] Encounter Details Date Type Department Care Team ([facility] Contact Info) Description 06/18/2020 Scanned Document [facility] Neurosurgery [address] [phone] Monroe Choi MD [address] [place] [address] [place] [address] [phone] Social History Tobacco Use Types Packs/Day Years [...] have Coronavirus / COVID-19? Unable to assess 06/19/2020 2:57 PM EST documented as of this encounter Plan of Treatment Upcoming Encounters Date Type Department Care Team (Late Contact Info) Description 10/14/2024 1:00 PM EDT Consult [facility] Neurology [address] [place] [address] Suman Dudley MD [address] [address] 10/16/2024 3:50 PM EDT Office Visit [facility] Neurology [place] [address] [phone] Nehemias Hussein APRN [address] [address] documented as of this encounter Visit Diagnoses Not on filedocumented in this encounter Care Teams Chlorine Cells Operator Relationship Specialty Start Date End Date Adeline Guo MD [address] [place] [address] PCP - General Internal Medicine 03/10/20 Feliciano Evans MD [address] [place] [address] Referring Provider 10/28/20 Yara Harding MD [address] [place] [address] Neurology 03/20/[address] [address] Neurology Neurology 06/07/22 documented as of this encounter"
--- OUTSIDE RECORDS SUMMARY | 2024-09-30 16:50 | XMS_ITS | Clinical Summary ---
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 Butler.) from Last 3 Months Family History Medical History Relation Name Comments Diabetes Sister Heart disease Sister Relation Name Status Comments Sister Social History Tobacco Use Types Packs/Day Years [...] 03/08/2022 9:57 AM EDT Plan of Treatment Health Maintenance Due Date Last Done Comments Cologuard 1950 Colon Cancer Screening 1950 Colonoscopy 1950 FOBT / Fit Test 1950 Hepatitis C Screening 1950 Sigmoidoscopy 1950 DTaP,Tdap,and Td Vaccines (2 - Tdap) 05/05/2021 05/05/2011 COVID-19 Vaccine ( season) 2024 04/22/2022, 11/11/2021, 03/20/2021, Additional history exists Influenza Vaccine (#1) 2024 , 04/07/2020, 05/24/2019, Additional history exists Alcohol/Substance Use Screening 08/07/2024 Depression Screening and Follow-Up 08/07/2024 Health Care Proxy Review 08/07/2024 Social Drivers of Health Annual Screening 08/07/2024 RSV Vaccine (60+ years old and patients) (1 - 1-dose 75+ series) 2027 Zoster Vaccines Completed 11/25/2021, 05/07, 02/06/2012 Pneumococcal Vaccine: 50+ Years Completed 12/08/2021, 07/22/2011 Hepatitis B Vaccines Aged Out No long er eligible based on patient's age to complete this topic Medical Devices Implanted Type Area Electrical Prospecting Observer Device Identifier Shelf Expiration Date Model / Serial / Lot Baseplate Reverse Shoulder Prosthesis With P2 Coating 30mm - [id number] Implanted:Qty: 1 on 07/12/2019 by Andrew Butler MD at [facility] Implant [employer] 05/03/2025 [id number] / / [id number] Head Glenoid With Retaining Screw [place] Shoulder Prosthesis Neutral 32mm - [id number] Implanted:Qty: 1 on 07/12/2019 by Andrew Butler MD at [facility] Implant [employer] 04/09/2025 508-32-101 / / [id number] Insert Socket Humeral Standard Hxe-Plus Rsp Sterile [id number] - [id number] Implanted:Qty: 1 on 07/12/2019 by Andrew Butler MD at [facility] Implant [employer] 05/31/2023 509-00-432 / / [id number] Stem Humeral Standard Reverse Shoulder Prosthesis [id number] - [id number] Implanted:Qty: 1 on 07/12/2019 by Andrew Butler MD at [facility] Implant [employer] 07/12/2024 530-10-108 / / [id number] Screw Locking Reverse Shoulder Prosthesis [id number] - [id number] Implanted:Qty: 1 on 07/12/2019 by Andrew Butler MD at [facility] Screw [employer] 03/24/2025 506-03-130 / / [id number] Screw Locking Bone Reverse Shoulder Prosthesis [id number] - [id number] Implanted:Qty: 1 on 07/12/2019 by Andrew Butler MD at [facility] Screw [employer] 04/19/2025 506-03-122 / / [id number] Screw Locking Reverse Shoulder Prosthesis [id number] - [id number] Implanted:Qty: 1 on 07/12/2019 by Andrew Butler MD at [facility] Screw [employer] 02/27/2025 506-03-130 / / [id number] Insurance [facility] Advance Directives * Full Code (Latest Code Status on File) Date Activated Date Inactivated Comments 07/12/2019 1:40 PM 07/13/2019 8:20 PM * Full Code Date Activated Date Inactivated Comments 07/12/2019 6:13 AM 07/12/2019 1:40 PM Care Teams Captain/Check Airman Relationship Specialty Start Date End Date Adeline Locke PCP - General Pediatrics 11/14/17
--- OUTSIDE RECORDS SUMMARY | 2024-09-30 16:50 | XMS_ITS | Encounter Summary ---
Author Organization [facility] Address [address] [place] [address] Care Team Providers Care Splitter Operator Name Role Phone Adeline Locke Primary Care Provider Unavailable Reason for Visit * Reason Onset Date Comments PAC Patient Request Call Back_Luke 09/13/2024 Pt would like call back in regards entry table operator used during surgery back [place] [address] Butler. Encounter Details Date Type Department Care Team (Late st Contact Info) Description 09/13/[address] [address] Telephone Intake, Staff PAC Patient Request Call Back_Luke (Pt would like call back in regards entry table operator used during surgery back in [address] Butler.) Social History Tobacco Use Types Packs/Day Years [...] encounter Miscellaneous Notes * Telephone Encounter - Marsha Acosta - 09/13/2024 1:02 PM EST I called and spoke with the patient, I provided him the name of the entry table operator. [employer] and [employer]. documented in this encounter Plan of Treatment Not on file documented as of this encounter Visit Diagnoses Not on filedocumented in this encounter Care Teams Splitter Operator Relationship Specialty Start Date End Date Adeline Locke PCP - General Pediatrics 11/14/17 documented as of this encounter
--- OUTSIDE RECORDS SUMMARY | 2024-09-30 16:50 | XMS_ITS | Encounter Summary ---
Author Organization [facility] Address [address] [place] [address] Care Team Providers Care Etl Analyst Developer Name Role Phone Adeline Guo MD Primary Care Provider [phone] Feliciano Evans MD Unavailable Yara Harding MD Unavailable [phone] Encounter Details Date Type Department Care Team ([facility] Contact Info) Description 11/26/2020 Prep for Surgery [facility] Pre-Admission Testing Center 85 [facility] [address] [place] [phone] Mariama Allred, RAFAEL [address] [place] [address] Social History Tobacco Use Types Packs/Day Years [...] have Coronavirus / COVID-19? No / Unsure 11/25/2020 7:50 AM EDT documented as of this encounter Plan of Treatment Upcoming Encounters Date Type Department Care Team ([facility] Contact Info) Description 10/14/2024 1:00 PM EDT Consult [facility] Neurology [place] 35 [facility] [address] [place] [address] Suman Dudley MD 35 [facility] 6 [place] [address] 10/16/2024 3:50 PM EDT Office Visit [facility] Neurology [place] 35 [facility] 6 [place] [address] Nehemias Hussein APRN [address] [address] documented as of this encounter Visit Diagnoses Not on filedocumented in this encounter Care Teams Etl Analyst Developer Relationship Specialty Start Date End Date Adeline Guo MD [address] [place] [address] PCP - General Internal Medicine 03/10/20 Feliciano Evans MD [address] [place] [address] Referring Provider 10/28/20 Yara Harding MD [address] [place] [address] Neurology 03/20/[address] [address] Neurology Neurology 06/07/22 documented as of this encounter
--- OUTSIDE RECORDS SUMMARY | 2024-09-30 16:50 | XMS_ITS | Encounter Summary ---
Author Organization [facility] Address [address] [place] [address] Care Team Providers Care Outside Installer Apprentice Name Role Phone Adeline Guo MD Primary Care Provider [phone] Feliciano Evans MD Unavailable Yara Harding MD Unavailable Encounter Details Date Type Department Care Team ([facility] Contact Info) Description 05/15/2020 Scanned Document [facility] Neurosurgery [address] [place] [phone] Marcelino Stene MD [address] [place] [address] Social History Tobacco Use Types Packs/Day Years [...] Upcoming Encounters Date Type Department Care Team ([facility] Contact Info) Description 10/14/2024 1:00 PM EDT Consult [facility] Neurology [address] [place] [address] Suman Dudley MD 35 [facility] 6 [place] [address] 10/16/2024 3:50 PM EDT Office Visit [facility] Neurology [place] 35 [facility] 6 [place] [phone] Nehemias Hussein APRN 35 [facility] 6 [place] [address] documented as of this encounter Visit Diagnoses Not on filedocumented in this encounter Care Teams Outside Installer Apprentice Relationship Specialty Start Date End Date Adeline Guo MD [address] [place] [address] PCP - General Internal Medicine 03/10/20 Feliciano Evans MD [address] [place] [address] Referring Provider 10/28/20 Yara Harding MD [address] [place] [address] Neurology 03/20/[address] [address] Neurology Neurology 06/07/22 documented as of this encounter
--- OUTSIDE RECORDS SUMMARY | 2024-09-30 16:50 | XMS_ITS | Encounter Summary ---
Author Organization [facility] Address [address] [place] [address] Care Team Providers Care Medicaid Plan Compliance Director Name Role Phone Adeline Guo MD Primary Care Provider [phone] Feliciano Evans MD Unavailable Yara Harding MD Unavailable [phone] Encounter Details Date Type Department Care Team (Late Contact Info) Description 05/10/2022 Scanned Document [facility] NEUROSURGERY SCAN Neurosurgery, Scan Social History Tobacco Use Types [...] suspected to have Coronavirus/COVID-19? No / Unsure 04/28/2022 3:14 PM EDT documented as of this encounter Plan of Treatment Upcoming Encounters Date Type Department Care Team ([facility] Contact Info) Description 10/14/2024 1:00 PM EDT Consult [facility] Neurology [address] [place] [address] Suman Dudley MD [address] [place] [address] 10/16/2024 3:50 PM EDT Office Visit [facility] Neurology [place] 35 [facility] [address] [place] [phone] Nehemias Hussein, RAFAEL [address] [facility] [address] [place] [address] documented as of this encounter Visit Diagnoses Not on filedocumented in this encounter Care Teams Medicaid Plan Compliance Director Relationship Specialty Start Date End Date Adeline Guo MD [address] [place] [address] PCP - General Internal Medicine 03/10/20 Feliciano Evans MD [address] [place] [address],[address] [address] Referring Provider 10/28/20 Yara Harding MD [address] [place] [address],[address] [address] Neurology 03/20/[address] [place] [address] [address] Neurology Neurology 06/07/22 documented as of this encounter
--- OUTSIDE RECORDS SUMMARY | 2024-09-30 16:50 | XMS_ITS | Clinical Summary ---
Author Organization [facility] Address [address] [place] [address] Care Team Providers Care Motorcycle Mechanic Name Role Phone Adeline Guo MD Primary Care Provider [phone] Feliciano Evans MD Unavailable Yara Harding MD Unavailable [phone] Allergies Active Allergy Reactions Criticality Noted Date Comments Gabapentin Other (See Comments) Low 02/21/2022 Extreme non-functional - patient denies Pregabalin Shortness Of Breath High 02/21/2022 Pt denies Vardenafil Other (See Comments) High 03/17/2009 Medications Medication Sig Dispensed Refills Start Date End Date Status Multiple Vitamins-Minera ls (CENTRUM SILVER 50+MEN PO) Centrum Silver Active albuterol (PROVENTIL HFA; VENTOLIN HFA) 108 (90 Base) MCG/ACT inhaler albuterol sulfate HFA 90 mcg/actuation aerosol inhaler INHALE 2 PUFFS INTO THE LUNGS EVERY 4 HOURS NEEDED FOR COUGH, WHEEZING OR SHORTNESS OF BREATH. Active ALPRAZolam (XANAX) 0.25 MG tablet alprazolam 0.25 mg tablet TAKE 1 TABLET BY MOUTH ONE TO THREE TIMES A DAY Active amLODIPine (NORVASC) 10 MG tablet amlodipine 10 mg tablet TAKE 1 TABLET BY MOUTH EVERY DAY Active atorvastatin (LIPITOR) 80 MG tablet atorvastatin 80 mg tablet TAKE 1 TABLET BY MOUTH EVERY DAY Active ezetimibe (ZeTIA) 10 MG tablet Take 1 tablet (10 mg total) by mouth daily. 0 Active finasteride (PROSCAR) 5 MG tablet finasteride 5 mg tablet TAKE 1 TABLET BY MOUTH EVERY DAY Active fluticasone (FloNASE) 50 mcg/spray nasal spray fluticasone propionate 50 mcg/actuation nasal spray,suspension USE 1 SPRAY IN EACH NOSTRIL EVERY MORNING 0 Active lamoTRIgine (LaMICtal) 200 MG tablet Take 1 tablet (200 mg total) by mouth 2 (two) times a day. 0 Active tadalafil (CIALIS) 5 MG tablet tadalafil 5 mg tablet TAKE 1 TABLET BY MOUTH EVERY DAY Active losartan-hydroc hlorothiazide (HYZAAR) 100-12.5 MG per tablet losartan 100 mg-hydrochloroth iazide 12.5 mg tablet TAKE 1 TABLET BY MOUTH EVERY DAY 9 Active traZODone (DESYREL) 50 MG tablet trazodone 50 mg tablet TAKE 1 TO 2 TABLETS BY MOUTH EVERY DAY AT BEDTIME Active metoPROLOL SUCCINATE (TOPROL-XL) 50 MG 24 hr tablet Take 1.5 tablets (75 mg total) by mouth nightly. 1 Active OMEprazole (PriLOSEC) 20 MG capsule Take 2 capsules (40 mg total) by mouth 2 (two) times a day. Active acetaminophen (TYLENOL) 325 MG tabletIndicatio ns:S/P deep brain stimulator placement,Essen tial tremor Take 3 tablets (975 mg total) by mouth every 8 (eight) hours around the clock. 270 tablet 1 Active Additional Information Patient taking differently: 650 mgOral Every 8 hours scheduled,Patient is taking 1500 mg since Knee replacement, Reported on 05/30/2022 ondansetron (ZOFRAN) 4 MG tablet Take 1 tablet (4 mg total) by mouth 3 times daily (every 8 hours) as needed for nausea or vomiting. Active Probiotic Product (Align) 4 MG Cap daily. Active lactulose (ENULOSE) 10 gm/15 mL solution TAKE 10 20 ML BY MOUTH TWICE A DAY NEEDED 1 Active ascorbic acid (VITAMIN C) 500 MG tabletIndicatio ns:S/P deep brain stimulator placement,Essen tial tremor TAKE 2 TABLETS BY MOUTH DAILY. DO NOT START BEFORE NOVEMBER 06, 2020. 60 tablet 1 Active Additional Information Patient taking differently: 250 mg Oral Daily, Reported on 08/19/2022 Aspirin 81 MG Cap daily. 1 Active clotrimazole-be tamethasone (LOTRISONE) cream as needed. 1 Active lamoTRIgine (LaMICtal) 25 MG tablet Take 1 tablet (25 mg total) by mouth daily. 1 Active nystatin (MYCOSTATIN) ointment 1 Active LORazepam (ATIVAN) 1 MG tablet Take 1 tablet (1 mg total) by mouth nightly. Takes half a tablet daily as needed 1 Active b complex vitamins capsule Take 1 capsule by mouth daily. Active ferrous sulfate 324 (65 Fe) MG Tablet Delayed Response Take 1 tablet (324 mg total) by mouth daily. 2 Active cetirizine (ZyrTEC) 10 MG tablet TAKE 1 TABLET BY MOUTH DAILY NEEDED FOR ALLERGY SYMPTOMS 3 Active primidone (MYSOLINE) 50 MG tabletIndicatio ns:Essential tremor TAKE 3 TABLETS (150 MG TOTAL) BY MOUTH 3 (THREE) TIMES A DAY. 810 tablet 1 4 Active Additional Information Patient taking differently: 150 mg Oral Nightly, 2 tabs TID, Reported on 09/09/2024 gabapentin (NEURONTIN) 400 MG capsule TAKE 1 CAPSULE BY MOUTH EVERY NIGHT 4 Active gabapentin (NEURONTIN) 100 MG capsule Take 2 capsules (200 mg total) by mouth daily. 3 Active amoxicillin (AMOXIL) 500 MG capsule Please take 4 CAPS of 500 MG one hour before your next dental appointment. 4 Active nitroglycerin (NITROSTAT) 0.[address] 1 tablet (0.4 mg total) under the tongue. Active Multiple Vitamin (Daily-Estefany Multivitamin) Tab Take 1 tablet by mouth. Active meloxicam (MOBIC) 15 MG tablet Take 1 tablet (15 mg total) by mouth. 4 Active linaclotide (LINZESS) 72 mcg capsule Take 1 capsule (72 mcg total) by mouth. 4 Active lidocaine (XYLOCAINE) 5 % ointment Apply topically 3 (three) times a day as needed. 4 Active ipratropium (ATROVENT) 0.06 % nasal spray into each nostril. 4 Active hydroCHLOROthia zide (HYDRODIURIL) 12.5 MG tablet Take 1 tablet (12.5 mg total) by mouth. FOR 90 DAYS 4 Active doxycycline (VIBRAMYCIN) 100 MG capsule TAKE 1 CAPSULE ORALLY 2 TIMES A DAY 4 Active diphenhydrAMINE -acetaminophen (TYLENOL PM) 25-500 MG Tab Take 2 tablets by mouth nightly as needed. Active chlorhexidine (PERIDEX) 0.12 % oral solution TAKE 15 ML BY MOUTH 2 TIMES A DAY, GARGLE AND SPIT OUT 4 Active psyllium (METAMUCIL) 58.6 % powder Take 1 packet by mouth as needed. Active docusate sodium (COLACE) 100 MG capsule TAKE 1 CAPSULE BY MOUTH TWICE A DAY DIRECTED 1 09/09/19 25 Discontinued(Med List Clean-up/Old Med - No E-Cancel/No AVS) senna (SENOKOT) 8.6 MG Tab tablet Take 2 tablets by mouth daily as needed for constipation. 09/09/19 25 Discontinued(Med List Clean-up/Old Med - No E-Cancel/No AVS) losartan (COZAAR) 50 MG tablet Take 1 tablet (50 mg total) by mouth daily. 09/09/19 25 Discontinued(Dup licate Prescription - No E-Cancel/No AVS) Active Problems Problem Noted Date Diagnosed Date Chronic pain of right knee 09/06/2021 Status post deep brain stimulator placement 02/04 Overview (09/24/2021): [employer] [facility] [facility], Linear lead, right chest Postoperative visit 12/01/2020 Essential tremor 11/04/2020 Benign essential tremor 04/07/2020 Encounters Date Type Department Care Team Description 09/09/2024 1:00 PM EST Consult [facility] Neurology [address] [phone] Suman Dudley MD Essential tremor (Primary Dx); Status post deep brain stimulator placement 09/09/2024 Travel 07/19/2024 9:20 AM EST Office Visit [facility] Neurosurgery [address] [place] [address] Monroe Choi MD Chronic pain of right knee (Primary Dx); Benign essential tremor; Status post deep brain stimulator placement 07/19/2024 Telephone [facility] Neurology [place] 35 [facility] 6 [place] [phone] Suman Dudley MD 07/19/2024 Telephone [facility] Neurosurgery [place] [address] [facility] [address] [place] [address] Monroe Choi MD 07/19/2024 Travel from Last 3 Months Family History Medical History Relation Name Comments Tremor Mother Heart attack Sister Relation Name Status Comments Daughter Alive Father Mother Other Spouse Alive Pt. other half Ana Cristina Haywood Sister Son 1 Alive Son 2 Alive Son 3 Alive Social History Tobacco Use Types Packs/Day Years [...] Orientation Heterosexual (straight) 02/23 12:37 PM EDT Last Filed Vital Signs Vital Sign Reading Time Taken Comments Blood Pressure 150/76 09/09/2024 12:55 PM EST Pulse 73 09/09/2024 12:55 PM EST Temperature 36.7 ??C (98 ??F) 05/30/2022 3:26 PM EDT Respiratory Rate 16 05/30/2022 3:26 PM EDT Oxygen Saturation 96% 02/21/2022 2:50 PM EDT Inhaled Oxygen Concentration - - Weight 99.8 kg (220 lb) 09/09/2024 12:55 PM EST Height 185.4 cm (6' 1 ) 09/09/2024 12:55 PM EST Body Mass Index 29.03 09/09/2024 12:55 PM EST Plan of Treatment Upcoming Encounters Date Type Department Care Team (Late st Contact Info) Description 10/14/2024 1:00 PM EDT Consult [facility] Neurology [place] [address] [facility] [address] [place] [address] Suman Dudley MD [address] [facility] [address] [place] [address] [place], [place] [phone] 10/16/2024 3:50 PM EDT Office Visit [facility] Neurology [place] 35 [facility] [address] [place] [address] Nehemias Hussein APRN 35 [facility] [address] [place] [address] Health Maintenance Due Date Last Done Comments Hepatitis C Virus Screening 1950 DTaP/Tdap/Td Vaccines (1 - Tdap) 1971 Colonoscopy 1997 Pneumococcal Vaccines 50+ (1 of 1 - PCV) 2002 Zoster (Shingles) Vaccine (1 of 2) 2002 RSV Vaccine 60 years and older and Patients (1 - Risk 60-74 years 1-dose series) 2012 COVID-19 Vaccine (2023- season) 2024 11/08/2022, 04/22/2022, 11/11/2021, Additional history exists Influenza Vaccine Completed 04/07/2024, , 05/25/2022, Additional history exists Hepatitis B Vaccines Aged Out No long er eligible based on patient's age to complete this topic Medical Devices Implanted Type Area Dude Ranch Manager Device Identifier Shelf Expiration Date Model / Serial / Lot [id number] Extension Neurostimulator 60cm 1.3-3.8mm 1.5mm Std Qdpl Dist - [id number] Implanted:Qty: 1 on 11/25/2020 by Monroe Choi MD at [facility] Cerebral [employer] MINIMALLY INVASIVE T 09/10/2023 [id number] / [id number] / [id number] Extension Neurostimulator 60cm 1.3-3.8mm 1.5mm Std Qdpl Dist - [id number] Implanted:Qty: 1 on 11/25/2020 by Monroe Choi MD at [facility] Cerebral [employer] MINIMALLY INVASIVE T 01/31/2024 [id number] / [id number] / [id number] Screw Bone Mdfc 5mm 1.5mm Self Drill Htorq Xdr Grn Chano - [id number] Implanted:Qty: 4 on 11/04/2020 by Monroe Choi MD at [facility] Maxillofacial Cranial [employer] [id number] / / [id number] Lead Neurostimulator Strg Cylinder Firm Deep Brn Stm - [id number] Implanted:Qty: 1 on 11/04/2020 by Monroe Choi MD at [facility] Stimulator Right: Brain [employer] MINIMALLY INVASIVE T 05/25/2024 3387S-40 / / [id number] 3387s-40 Lead Neurostimulator Strg Cylinder Firm Deep Brn Stm - [id number] Implanted:Qty: 1 on 11/04/2020 by Monroe Choi MD at [facility] Stimulator [employer] MINIMALLY INVASIVE T 3387S-40 / / [id number] Neurostimulator Implantable 68mm X 51mm Percept 2 Chnl 61g - [id number] Implanted:Qty: 1 on 11/25/2020 by Monroe Choi MD at [facility] Stimulator [employer] MINIMALLY INVASIVE T 08/20/2022 [id number] / [id number] / [id number] Operations And Maintenance Supervisor Neurostimulator Patient Percept Pc Device - [id number] Implanted:Qty: 1 on 11/25/2020 by Monroe Choi MD at [facility] Stimulator [employer] MINIMALLY INVASIVE T [id number] / / [id number] Kit Stimulator Tunnel Deep Brn Stm - [id number] Implanted:Qty: 1 on 11/25/2020 by Monroe Choi MD at [facility] Stimulator [employer] MINIMALLY INVASIVE T [id number] / / [id number] Filler Bone Void 10cc 20cc Calcium Slf Stimulan Rpd Cure Kit - [id number] Implanted:Qty: 1 on 11/04/2020 by Monroe Choi MD at [facility] Void Filler N/A: [employer] 12/04/2022 620-010 / / [id number] 620-010 Filler Bone Void 10cc 20cc Calcium Slf Stimulan Rpd Cure Kit - [id number] Implanted:Qty: 1 on 11/25/2020 by Monroe Choi MD at [facility] Void Filler Right: Chest [employer] 12/04/2022 620-010 / / [id number] Description:mixed with 1 gm vancomycin powder and 1.2gm tobramycin powder Explanted Type Area Dude Ranch Manager Device Identifier Shelf Expiration Date Model / Serial / Lot 70-It-Ar5p Electrode Neurostimulator Star [employer]edy Microtargetting Dzap - [id number] Explanted:Qty: 1 on 11/04/2020 by Monroe Choi MD at [facility] Stimulator Brain [employer] 10/15/2021 70-IT-AR 5P / / [id number] 66-It-Ar4p Electrode Neurostimulator Microtargeting Unilateral - [id number] Explanted:Qty: 1 on 11/04/2020 by Monroe Choi MD at [facility] Stimulator Brain [employer] 02/25/2023 66-IT-AR 4P / / [id number] Cable Neurostimulator Twstlk Scrn Sterl Lf - [id number] Explanted:Qty: 1 on 11/04/2020 by Monroe Choi MD at [facility] Stimulator Right: Brain [employer] MINIMALLY INVASIVE T 09/03/2024 3550-68 / / [id number] Description:NOT AN IMPLANT Advance Directives * Full Code (Latest Code Status on File) Date Activated Date Inactivated Comments 11/25/2020 8:30 AM * Full Code Date Activated Date Inactivated Comments 11/04/2020 4:31 PM 11/25/2020 7:56 AM Care Teams Motorcycle Mechanic Relationship Specialty Start Date End Date Adeline Guo MD [address] [place] [address] PCP - General Internal Medicine 03/10/20 Feliciano Evans MD [address] [place] [address],[facility] [address] [place] [address] Referring Provider 10/28/20 Yara Harding MD [address] [place] [address],[address] [address] Neurology 03/20/[address] [address] Neurology Neurology 06/07/22
--- OUTSIDE RECORDS SUMMARY | 2024-09-30 16:51 | XMS_ITS | Encounter Summary ---
Author Organization [employer] [facility] Address [address] [place] [address] [address] [place] [address] Care Team Providers Care Senior Instrumentation Engineer Name Role Phone Unavailable Primary Care Provider Unavailabl e Encounter Details Date Type Department Care Team (Late st Contact Info) Description 09/05/2024 Telephone [facility] ADULT DENTAL [address] [place] [address] Alex Burns DMD [address] [place] [address] Social History Tobacco Use Types Packs/Day Years Used Date Smoking Tobacco: Never Passive Smoke Exposure: Never Smokeless Tobacco: Never Sex and Gender Information Value Date Recorded Sex Assigned at Male 06/06/2022 10:24 AM EDT Legal Sex Male 10:24 AM EDT Gender Identity Male 06/06/2022 10:24 AM EDT Sexual Orientation Straight 06/06/2022 10 :24 AM EDT documented as of this encounter Miscellaneous Notes * Telephone Encounter - aRnd Nergon - 09/05/2024 8:30 AM EST LVM, for pt to contact the office back to schedule his appointment with Dr. Burns documented in this encounter Plan of Treatment Not on file documented as of this encounter Visit Diagnoses Not on filedocumented in this encounter
--- OUTSIDE RECORDS SUMMARY | 2024-09-30 16:51 | XMS_ITS | Encounter Summary ---
Author Organization [facility] Address [address] [place] [address] Care Team Providers Care Vulnerability Researcher Name Role Phone Adeline Guo MD Primary Care Provider [phone] Feliciano Evans MD Unavailable Yara Harding MD Unavailable [phone] Reason for Referral * Surgical (Routine) - Closed Specialty Diagnoses / Procedures Referred By Tamika hurt Referred To Contact Anesthesiology Diagnoses Benign essential tremor Monroe Choi MD [address] [place] [address] [address] [place] [phone] Referral ID Status Reason Start Date Expiration Date V isits Requested Visits Authorized [id number] Closed Specialty Services Required 11/14/2020 11/15/2021 1 1 Encounter Details Date Type Department Care Team (Late st Contact Info) Description 10/26/2020 Prep for Surgery [facility] Neurosurgery [place] [address] [facility] [address] [place] [phone] Emilee Brewer, SONALI [address] [place] [address] Benign essential tremor (Primary Dx) Social History Tobacco Use Types Packs/Day Years [...] have Coronavirus / COVID-19? No / Unsure 10/27/2020 9:23 AM EDT documented as of this encounter Plan of Treatment Upcoming Encounters Date Type Department Care Team (Late st Contact Info) Description 10/14/2024 1:00 PM EDT Consult [facility] Neurology [address] [phone] Suman Dudley MD [address] [place] [address] 10/16/2024 3:50 PM EDT Office Visit [facility] Neurology [address] [address] Nehemias Hussein APRN [address] [place] [address] Scheduled Referrals Name Type Priority Associated Diagnoses Order Schedule Ambulatory referral to Anesthesiology Outpatient Referral Routine Benign essential tremor Ordered: 11/14/2020 documented as of this encounter Visit Diagnoses Diagnosis Benign essential tremor- Primary Essential and other specified forms of tremor documented in this encounter Care Teams Vulnerability Researcher Relationship Specialty Start Date End Date Adeline Guo MD [address] [place] [address] PCP - General Internal Medicine 03/10/20 Feliciano Evans MD [address] [place] [address],[address] [address] Referring Provider 10/28/20 Yara Harding MD [address] [place] [address] [place] [address] Neurology 03/20/23 Austin Sethi [address] [place] [address] Neurology Neurology 06/07/22 documented as of this encounter
--- OUTSIDE RECORDS SUMMARY | 2024-09-30 16:51 | XMS_ITS | Encounter Summary ---
Author Organization [facility] Address [address] [place] [address] Care Team Providers Care Bit Setter Name Role Phone Curt Wiseman MD Primary Care Provider [phone] Reason for Visit * Reason Comments Appointment Encounter Details Date Type Department Care Team ([facility] st Contact Info) Description 04/16/2021 Telephone [facility] Neurology [address] [address] Austin Sethi MD [address] [facility] [address] [place] [address] Appointment Social History Tobacco Use Types Packs/Day Years Used Date Smoking Tobacco: Never Smokeless Tobacco: Never Sex and Gender Information Value Date Recorded Sex Assigned at Not on file Legal Sex Male 10:02 AM EDT Gender Identity Not on file Sexual Orientation Not on file documented as of this encounter Miscellaneous Notes * Telephone Encounter - Eleonora Tellez - 04/23/2021 10:20 AM EDT Spoke to pt - appt scheduled Future Appointments Date Time Provider Department Phone 05/03/21 3:30 PM Austin Sethi MD [facility] Neurology [address] * Telephone Encounter - Eleonora Tellez - 04/22/2021 10:41 AM EDT LMOM asking pt to return my call to schedule appt * Telephone Encounter - Austin Sethi MD - 04/22/2021 9:43 AM EDT Can offer 3:30 on 05/03 * Telephone Encounter - Eleonora Tellez - 04/20/2021 2:59 PM EDT Pt came to appt today, however, he was unable to be seen - would like to r/s - ? Where to r/s * Telephone Encounter - Denise Schwartz - 04/19/2021 3:24 PM EDT Future Appointments Date Time Provider Department Phone 04/20/21 2:15 PM Austin Sethi MD [facility] Neurology [address] * Telephone Encounter - Austin Sethi MD - 04/19/2021 3:11 PM EDT Can offer 1:45 (30 min) or 2:!5 (45 min) slot tomorrow if pt can make it * Telephone Encounter - Ayah Foster - 04/16/2021 3:23 PM EDT Bonnie called for her Bj. He was last see in January 2021 and has had a knee replacement and is not doing well and wondered when did you want to see her again? Please advise. documented in this encounter Plan of Treatment Not on file documented as of this encounter Visit Diagnoses Not on filedocumented in this encounter Care Teams Bit Setter Relationship Specialty Start Date End Date Curt Wiseman MD [address] [address] PCP - General Family Medicine 02/10/21 documented as of this encounter
--- OUTSIDE RECORDS SUMMARY | 2024-09-30 16:51 | XMS_ITS | Encounter Summary ---
Author Organization [facility] Address [address] [place] [address] Care Team Providers Care Doll Dresser Name Role Phone Adeline Guo MD Primary Care Provider [phone] Curt Wiseman MD Primary Care Provider [phone] Encounter Details Date Type Department Care Team (Late st Contact Info) Description 03/13/2018 Orders Only [facility] Pre-Admission Testing [address] [facility] [address] [place] [address] Yamilex Langston NP Social History Tobacco Use Types Packs/Day Years Used Date Smoking Tobacco: Never Smokeless Tobacco: Never Sex and Gender Information Value Date Recorded Sex Assigned at Not on file Legal Sex Male 10:02 AM EDT Gender Identity Not on file Sexual Orientation Not on file documented as of this encounter Plan of Treatment Not on file documented as of this encounter Procedures * Due to [place] state law, this organization might not be sharing negative HIV tests. Procedure Name Priority Date/Time Associated Diagnosis Comments EKG-TO BE READ & BILLED BY ADULT [...] Mood disorder (HCC) RLS (restless legs syndrome) documented in this encounter Results * Due to [place] state law, this organization might not be [...] ECG No previous ECGs available Confirmed by HAKEEM PASCUAL ([id number]) on 03/13/2018 8:44:32 PM [facility] 03/13/2018 4:18 PM EDT 03/13/2018 8:44 PM EDT Yamilex Langston NP CARDIOVASCULAR-WITH INBSK T RTG Final Result Performing Organization Address [facility] Co de Phone Number [facility] * PROTHROMBIN TIME (PT) (INR), BLOOD (03/13/2018 4:11 PM EDT) Pathologist [facility] INR 1.0 [facility] Comment: Reference Range ? 0.9-1.1 Moderate-intensity Warfarin Therapy 2.0-3.0 Higher-intensity Warfarin Therapy ?? 3.0-4.0 PT 10.7 9.0 - 11.5 sec [facility] Comment: For more information on this test, go to: http://education.[employer]/faq/TRP970 03/13/2018 4:11 PM EDT 03/13/2018 9:37 PM EDT Narrative Resulting Agency Comment [id number] Yamilex Langston PROGRAMMER ANALYST CONSULTANT LAB SAME DAY RESULT Final Result Performing Organization Address [facility] de Phone Number [facility] [address] [place] [address] * HEPATIC FUNCTION PANEL (ALT,AST,ALK PH,BILI'S,TP,ALB) (03/13/2018 4:11 PM EDT) Pathologist [facility] Protein Total (Serum) 6.7 6.1 - 8.1 [...] 9:37 PM EDT Narrative Resulting Agency Comment [id number] us Yamilex Langston PROGRAMMER ANALYST CONSULTANT LABORATORY Final Res ult [facility] [address] [place] [address] * CBC INCLUDES DIFFERENTIAL AND PLATELET COUNT [...] Basophils % 0.4 % [facility] 03/13/2018 4:1 1 PM EDT 03/13/2018 9:37 PM EDT Narrative Resulting Agency Comment [id number] us Yamilex Langston PROGRAMMER ANALYST CONSULTANT LAB SAME DAY RESULT Final Result [facility] [address] [place] [address] * BASIC METABOLIC PANEL WITH (GFR) (03/13/2018 4:11 PM EDT) Glucose 98 65 - 99 mg/dL [facility] Comment:Fasting reference in terval Urea Nitrogen Blood (BUN) 20 7 - 25 mg/dL [facility] Creatinine 1.05 0.70 - 1.25 mg/dL [facility] Comment: For patients >49 years of age, the reference limit for Creatinine is approximately 13% higher for people identified as -[place]. GFR 74 > OR = 60 mL/min/1 [...] needs for GFR calculation. Resulting Agency Comment [id number] Yamilex Langston PROGRAMMER ANALYST CONSULTANT LABORATORY Final Res ult Performing Organization Address City/State/[facility] Co de Phone Number [facility] [address] [place] [address] documented in this encounter Visit Diagnoses Diagnosis Preop examination Preoperative examination, unspecified Gastroesophageal reflux disease, esophagitis presence not specified Hyperlipidemia, unspecified hyperlipidemia type Hypertension, unspecified type Benign prostatic hyperplasia, unspecified whether lower urinary tract symptoms present Mood disorder Unspecified episodic mood disorder RLS (restless legs syndrome) Restless legs syndrome (RLS) documented in this encounter Care Teams Doll Dresser Relationship Specialty Start Date End Date Adeline Guo MD [address] [address] PCP - General Internal Medicine 11/30/17 02/09/21 Curt Wiseman MD [address] [address] PCP - General Family Medicine 02/10/21 documented as of this encounter
--- OUTSIDE RECORDS SUMMARY | 2024-09-30 16:51 | XMS_ITS | Encounter Summary ---
Author Organization [employer] [facility] Address [address] [place] [address] [address] [place] [address] Care Team Providers Care Freelance Data Entry Name Role Phone Unavailable Primary Care Provider Unavailabl e Encounter Details Date Type Department Care Team (Late st Contact Info) Description 03/18/2024 Telephone [facility] ADULT DENTAL [address] [place] [address] Dipti Rosenthal [address] [place] [address] Social History Tobacco Use Types Packs/Day Years [...]
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
--- OUTSIDE RECORDS SUMMARY | 2024-09-30 16:51 | XMS_ITS | Encounter Summary ---
Author Organization [employer] Address [address] [place] [address] [address] [place] [address] Care Team Providers Care Cardroom Drawing Runner Name Role Phone Unavailable Primary Care Provider Unavailabl e Reason for Visit * Reason Onset Date Comments instructions 12/28/2022 Dental Pain 12/28/2022 Encounter Details Date Type Department Care Team (Late st Contact Info) Description 12/28/2022 Telephone [facility] ADULT DENTAL [address] [place] [address] Alex Burns DMD [address] [place] [address] instructions; Dental Pain Social History Tobacco Use Types Packs/Day Years Used Date Smoking Tobacco: Never Assessed Sex and Gender Information Value Date Recorded Sex Assigned at Male 06/06/2022 10:24 AM EDT Legal Sex Male 10:24 AM EDT Gender Identity Male 06/06/2022 10:24 AM EDT Sexual Orientation Straight 06/06/2022 10 :24 AM EDT COVID-19 Exposure Response Date Recorded In the last 10 days, have yo u been in contact with someone who was confirmed or suspected to have Coronavirus/COVID-19? No / Unsure 12/28/2022 10:36 AM EDT documented as of this encounter Miscellaneous Notes * Telephone Encounter - Zeynep Rodriguez - 01/03/2023 2:20 PM EDT Patient called in with patient due to patient still continuing to have increasing pain and down to last 2 ibuprofen. She is not sure what to do. Wants him to be seen DR * Telephone Encounter - Zeynep Rodriguez - 12/28/2022 2:24 PM EDT Patient called in stating that she wanted instructions for after care of patient and what to do with pain. Patient was scripted the ibuprofen and I did indicate that would be his pain medicationbut she wanted to know what to do if it worsens and after care instructions DR documented in this encounter Plan of Treatment Not on file documented as of this encounter Visit Diagnoses Not on filedocumented in this encounter
--- OUTSIDE RECORDS SUMMARY | 2024-09-30 16:51 | XMS_ITS | Encounter Summary ---
Author Organization [facility] Address [address] [place] [address] Care Team Providers Care Relay Tester Name Role Phone Adeline Guo MD Primary Care Provider [phone] Feliciano Evans MD Unavailable Yara Harding MD Unavailable [phone] Encounter Details Date Type Department Care Team ([facility] Contact Info) Description 07/19/2022 Telephone [facility] Neurology [address] [place] [phone] Yara Harding MD [facility] [address] [place] [address] Social History Tobacco Use Types Packs/Day Years [...] suspected to have Coronavirus/COVID-19? No / Unsure 07/01/2022 9:32 AM EST documented as of this encounter Plan of Treatment Upcoming Encounters Date Type Department Care Team ([facility] Contact Info) Description 10/14/2024 1:00 PM EDT Consult [facility] Neurology [place] [address] [facility] [address] [place] [address] Suman Dudley MD [address] [facility] [address] [place] [address] 10/16/2024 3:50 PM EDT Office Visit [facility] Neurology [place] [address] [facility] [address] [place] [address] Nehemias Hussein APRN [address] [address] documented as of this encounter Visit Diagnoses Not on filedocumented in this encounter Care Teams Relay Tester Relationship Specialty Start Date End Date Adeline Guo MD [address] [place] [phone] PCP - General Internal Medicine 03/10/20 Feliciano Evans MD [address] [place] [address] Referring Provider 10/28/20 Yara Harding MD [address] [place] [address] Neurology 03/20/[address] [address] Neurology Neurology 06/07/22 documented as of this encounter
--- OUTSIDE RECORDS SUMMARY | 2024-09-30 16:51 | XMS_ITS | Encounter Summary ---
Author Organization [employer] Address [address] [place] [address] 7[address] [place] [address] Care Team Providers Care Chocolate Packer Name Role Phone Unavailable Primary Care Provider Unavailabl e Reason for Visit * Reason Onset Date Comments appt temp crown fell off/recement 03/19/2024 Encounter Details Date Type Department Care Team (Late st Contact Info) Description 03/19/2024 Telephone [facility] ADULT DENTAL [address] [place] [address] Rocío Castillo, ROSEMARIES [address] [place] [address] appt temp crown fell off/recement Social History Tobacco Use Types Packs/Day Years [...] * Telephone Encounter - Zeynep Rodriguez - 03/22/2024 9:36 AM EDT Patient is coming in to recement temp crown that fell off. Ok to schedule per Megan front office agent. Informed front office agent via phone that [employer] is not an insurance we have access to and unable to post. Normally same day visits PAR reps post insurance. Megan verified it will be taken careof in office DR * Telephone Encounter - Zeynep Rodriguez - 03/19/2024 10:12 AM EDT Message was sent out mistakenly to incorrect provider (hygenist) yesterday. Patient is coming in tomorrow and needs to have antibiotic sent to the pharmacy for premed treatment. The appt is tomorrow at 1:30. They would like to picker machine operator in the morning to have it ready to take prior to treatment. The pharmacy on file is the one to use. documented in this encounter Plan of Treatment Not on file documented as of this encounter Visit Diagnoses Not on filedocumented in this encounter
--- OUTSIDE RECORDS SUMMARY | 2024-09-30 16:51 | XMS_ITS | Encounter Summary ---
Author Organization [employer] [facility] Address [address] [place] [address] 7 [place] [address] Care Team Providers Care Technology Adoption Manager Name Role Phone Unavailable Primary Care Provider Unavailabl e Encounter Details Date Type Department Care Team (Latest Contact Info) Description 10/13/2021 Abstract [facility] CONVERSIONS Dental, Provider, DDS Social History Tobacco Use Types Packs/Day Years [...]
--- OUTSIDE RECORDS SUMMARY | 2024-09-30 16:51 | XMS_ITS | Encounter Summary ---
Author Organization [facility] Address [address] [place] [address] Care Team Providers Care Reeling Operator Name Role Phone Adeline Guo MD Primary Care Provider [phone] Feliciano Evans MD Unavailable Yara Harding MD Unavailable [phone] Encounter Details Date Type Department Care Team ([facility] Contact Info) Description 10/30/2020 Scanned Document [facility] [address] [place] [phone] Angelica Zuluaga, [address] [place] [address] Social History Tobacco Use Types Packs/Day Years [...] Upcoming Encounters Date Type Department Care Team ([facility] Contact Info) Description 10/14/2024 1:00 PM EDT Consult [facility] [address] [facility] [address] [place] [address] Suman Dudley MD 35 [facility] 6 [place] [address] 10/16/2024 3:50 PM EDT Office Visit [facility] 35 [facility] 6 [place] [address] Nehemias Hussein APRN [address] [id number] documented as of this encounter Visit Diagnoses Not on filedocumented in this encounter Care Teams Reeling Operator Relationship Specialty Start Date End Date Adeline Guo MD [address] [place] [id number] PCP - General Internal Medicine 03/10/20 Feliciano Evans MD [address] [place] [id number] Referring Provider 10/28/20 Yara Harding MD [address] [place] [address] Neurology 03/20/[address] [address] Neurology Neurology 06/07/22 documented as of this encounter
--- OUTSIDE RECORDS SUMMARY | 2024-09-30 16:51 | XMS_ITS | Encounter Summary ---
Author Organization [employer] [facility] Address [address] [place] [address] 7[address] [place] [address] Care Team Providers Care Tree Surgeon Name Role Phone Unavailable Primary Care Provider Unavailabl e Reason for Visit * Reason Onset Date Comments medication pre med 07/17/2023 Encounter Details Date Type Department Care Team (Late st Contact Info) Description 07/17/2023 Telephone [facility] [address] [place] [address] Art Poe DDS [address] [place], [place] [phone] medication pre med Social History Tobacco Use Types Packs/Day Years Used Date Smoking Tobacco: Never Assessed Sex and Gender Information Value Date Recorded Sex Assigned at Male 06/06/2022 10:24 AM EDT Legal Sex Male 10:24 AM EDT Gender Identity Male 06/06/2022 10:24 AM EDT Sexual Orientation Straight 06/06/2022 10 :24 AM EDT documented as of this encounter Miscellaneous Notes * Telephone Encounter - Zeynep Rodriguez - 07/17/2023 10:52 AM EST Patient is coming in on 08/03 rs cleaning and needs pre med sent to pharmacy for dental work DR documented in this encounter Plan of Treatment Not on file documented as of this encounter Visit Diagnoses Not on filedocumented in this encounter
--- OUTSIDE RECORDS SUMMARY | 2024-09-30 16:51 | XMS_ITS | Encounter Summary ---
Author Organization [employer] [facility] Address [address] [place] [address] 7 [place] [address] Care Team Providers Care Accredited Legal Secretary Name Role Phone Unavailable Primary Care Provider Unavailabl e Encounter Details Date Type Department Care Team (Latest Contact Info) Description 04/13/2022 Abstract [facility] Dental, Provider, DDS Social History Tobacco [...]
--- OUTSIDE RECORDS SUMMARY | 2024-09-30 16:51 | XMS_ITS | Encounter Summary ---
Author Organization [facility] Address [address] [place] [address] Care Team Providers Care Valet Parker Name Role Phone Adeline Guo MD Primary Care Provider [phone] Feliciano Evans MD Unavailable Yara Harding MD Unavailable [phone] Encounter Details Date Type Department Care Team (Late st Contact Info) Description 02/28/2023 [facility] [address] [place] [phone] Yara Harding MD [facility] [address] [place] [address] Social History Tobacco Use Types Packs/Day Years [...] encounter Miscellaneous Notes * Telephone Encounter - Gerhard Pacheco - 02/28/2023 1:12 PM EDT Bonnie ( healthcare rep) called asking if it is possible to prescribe Ativan for Bj. Bj isno longer seeing the Neurologist that previously prescribed this medication, and his PCP refused toprescribe. Please advise. documented in this encounter Plan of Treatment Upcoming Encounters Date Type Department Care Team (Late st Contact Info) Description 10/14/2024 1:00 PM EDT Consult [facility] Neurology [address] [phone] Suman Dudley MD [address] [place] [address] 10/16/2024 3:50 PM EDT Office Visit [facility]rology [address] [phone] Nehemias Hussein APRN [address] [place] [address] documented as of this encounter Visit Diagnoses Not on filedocumented in this encounter Care Teams Valet Parker Relationship Specialty Start Date End Date Adeline Guo MD [address] [place] [address] PCP - General Internal Medicine 03/10/20 Feliciano Evans MD [address] [place] [address] Referring Provider 10/28/20 Yara Harding MD [address] [place] [address] Neurology 03/20/[address] [address] Neurology Neurology 06/07/22 documented as of this encounter
--- OUTSIDE RECORDS SUMMARY | 2024-09-30 16:51 | XMS_ITS | Clinical Summary ---
Author Organization [employer] [facility] Address [address] [place] [address] 7[address] [place] [address] Care Team Providers Care Pantograph Machine Set Up Operator Name Role Phone Unavailable Primary Care Provider Unavailabl e Allergies No known active allergies Medications chlorhexidine (Peridex) 0.12 % solutionIndicati ons:History of tooth extraction, unspecified edentulism class Fill irrigation syringe and irrigate extraction socket following meals. Spit, do not swallow. 473 mL 3 Active ibuprofen 600 MG tabletIndication s:History of tooth extraction, unspecified edentulism class Take 1 tablet (600 mg) by mouth every 6 (six) hours if needed for mild pain for up to 20 doses. 20 tablet 3 Active amoxicillin (Amoxil) 500 MG capsule Take 4 capsules one hour before the dental appointment. 12 capsule 3 Active acetaminophen (Tylenol) 325 MG tablet Take 975 mg by mouth in the morning and 975 mg at noon and 975 mg in the evening. 9 Active albuterol 108 (90 Base) MCG/ACT inhaler 4 Active amLODIPine (Norvasc) 10 MG tablet Take 1 tablet by mouth in the morning. 9 Active Ascorbic Acid (vitamin C) 500 MG tablet Take 500 mg by mouth in the morning. 3 Active Aspirin 81 MG capsule daily. 1 Active atorvastatin (Lipitor) 80 MG tablet Take 1 tablet by mouth at bedtime. 4 Active cetirizine (ZyrTEC) 10 MG tablet TAKE 1 TABLET BY MOUTH DAILY NEEDED FOR ALLERGY SYMPTOMS 3 Active cyclobenzaprine (Flexeril) 10 MG tablet TAKE 1 TABLET BY MOUTH 3 TIMES A DAY FOR PAIN OR SPASM 3 Active ezetimibe (Zetia) 10 MG tablet Take 10 mg by mouth in the morning. 3 Active finasteride (Proscar) 5 MG tablet Take 1 tablet by mouth in the morning. 9 Active fluticasone (Flonase) 50 MCG/ACT nasal spray USE 1 SPRAY IN EACH NOSTRIL EVERY 12 HOURS 3 Active gabapentin (Neurontin) 100 MG capsule Take 100 mg by mouth 2 times daily. 3 Active lamoTRIgine (LaMICtal) 200 MG tablet Take 1 tablet by mouth 2 times daily. 3 Active LORazepam (Ativan) 1 MG tablet TAKE ONE TABLET (1 MG TOTAL) BY MOUTH EVERY NIGHT 3 Active Multiple Vitamin (One-Daily Multi-Vitamin) tablet Take 1 tablet by mouth in the morning. 3 Active omeprazole (PriLOSEC) [address] capsule Take 40 mg by mouth 2 times daily. 3 Active predniSONE (Deltasone) 10 MG tablet TAKE 4 TABS DAILY X4 DAYS, 3 TABS DAILY X2 DAYS, 2 TABS DAILY X2 DAYS, 1 TAB DAILY X2 DAYS 3 Active primidone (Mysoline) 50 MG tablet Take 1 tablet by mouth in the morning. 2 Active Probiotic Product (Align) 4 MG capsule daily. Active amoxicillin (Amoxil) 500 MG capsule Take 4 capsules one hour before the dental appointment. 16 capsule 4 Active amoxicillin (Amoxil) 500 MG capsule Please take 4 CAPS of 500 MG one hour before your next dental appointment. 4 capsule 4 Active Active Problems No known active problems Encounters Date Type Department Care Team Description 09/05/2024 Telephone [facility] ADULT [facility] [address] [place], [place] [phone] Alex Burns DMD 07/23/2024 3:30 PM EST Office Visit [facility] [address] [place], [place] [phone] Andre Bang from Last 3 Months Social History Tobacco Use Types Packs/Day Years Used Date Smoking Tobacco: Never Passive Smoke Exposure: Never Smokeless Tobacco: Never Tobacco Cessation:Counseling Given: Not Answered Sex and Gender Information Value Date Recorded Sex Assigned at Male 06/06/2022 10:24 AM EDT Legal Sex Male 10:24 AM EDT Gender Identity Male 06/06/2022 10:24 AM EDT Sexual Orientation Straight 06/06/2022 10 :24 AM EDT Last Filed Vital Signs Vital Sign Reading Time Taken Comments Blood Pressure 132/72 08/22/2023 2:01 PM EST Pulse 60 08/22/2023 2:01 PM EST Temperature - - Respiratory Rate - - Oxygen Saturation - - Inhaled Oxygen Concentration - - Weight - - Height - - Body Mass Index - - Plan of Treatment Health Maintenance Due Date Last Done Comments CT Colonography 1952 Colonoscopy 1952 Colorectal Cancer Screening 1952 Depression Screening 1952 FIT DNA/Cologuard 1952 FIT 1952 FOBT 1952 Lipid Panel 1952 SDOH Screening 1952 Sigmoidoscopy 1952 Alcohol/Substance Use Screening 1964 Hepatitis C Screening 1970 RSV Patients and Patients Aged 60 years or older (1 - Risk 60-74 years 1-dose series) 2012 Dental Oral Exam 02/21/2024 08/22/2023 Dental Prophylaxis 02/21/2024 08/22/2023 COVID-19 Vaccine ( season) 2024 04/12/2024, 05/17/2023, 11/08/2022, Additional history exists Dental X-Ray: Bitewings 11/17/2024 11/17/2023, 08/22 Tobacco Screening 07/23/2025 07/23/2024 Dental X-Ray: Full Mouth 10/05/2026 10/04/2023 DTaP/Tdap/Td Vaccines (4 - Td or Tdap) 04/01/2034 04/01/2024, 10/13/2022, 05/05/2011 Zoster Vaccines Completed 11/25/2021, 05/07, 02/06/2012 Pneumococcal Vaccine: 50+ Years Completed 12/08/2021, 07/22/2011, 01/07/2002 Influenza Vaccine Completed 05/29/2024, , 06/07/2023, Additional [...] patient's age to complete this topic Meningococcal Vaccine Aged Out No cezar irene eligible based on patient's age to complete this topic RSV under 20 months Aged Out No longe r eligible based on patient's age to complete this topic Rotavirus Vaccines Aged Out No longer eligible based on patient's age to complete this topic Procedures Procedure Name Priority Date/Time Associated Diagnosis Comments 32 INTRAORAL - PERIAPICAL FIRST RADIOGRAPHIC IMAGE Routine 07/23/2024 3:30 PM EST 32 LIMITED ORAL EVALUATION - PROBLEM FOCUSED Routine 07/23/2024 3:30 PM EST BITEWING - SINGLE RADIOGRAPHIC IMAGE Routine 11/17/2023 3:00 PM EDT PANORAMIC RADIOGRAPHIC IMAGE Routine 10/04/2023 1:00 PM EST Full PROPHYLAXIS - ADULT Routine 024 2:00 PM EST PERIODIC ORAL EVALUATION - ESTABLISHED PATIENT Routine 08/22/2023 2:00 PM EST from Last 3 Months or Most Recently Relevant to Health Maintenance Insurance DENTAL - [facility]
== END 2024-09-30 17:05 ==
PROVIDERS: PCP Family Medicine; Visit Provider Family Medicine
DX: G47.30 Sleep apnea, unspecified (principal); R13.10 Dysphagia, unspecified; S20.229A Contusion of unspecified back wall of thorax, initial encounter

== ENCOUNTER → 2024-09-30 14:37 | Outpatient (BNVA) | payer MEDICARE, SELFPAY | PROVIDERS: PCP Family Medicine; Visit Provider Family Medicine | DX: G47.30 Sleep apnea, unspecified (principal); R13.10 Dysphagia, unspecified; S20.229D Contusion of unspecified back wall of thorax, subsequent encounter | CPT/HCPCS: 99212 ==

== ENCOUNTER 2024-10-07 13:21 | Outpatient (AMB) | payer MEDICARE, SELFPAY ==
[2024-10-07 13:31] VITALS: BP 139/74; PULSE 70; O2SAT 98; BMI 29.3
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
--- OUTSIDE RECORDS SUMMARY | 2024-10-07 15:41 | XMS_ITS | Continuity of Care Document ---
Author Organization [facility] Address [address] [place] [address] Care Team Providers Care Agriculture Research Director Name Role Phone Curt Wiseman MD Primary Care Provider [phone] Encounters Date Type Department Care Team Description [facility]/14[facility]23 [facility] Neu[facility] [address] [facility] [address] [place] [address] [place] Sethi MD E-prescribing Refill Request 10/10/2023 Refill [facility] Neu[facility] [address] [facility] [address] [place] [address] [place] Sethi MD Refill Request 06/25/2023 Refill [facility] Neu[facility] [address] [facility] [address] [place] [address] [place] Sethi MD Med Change Request; Refill Request 05/22/2023 Refill [facility] Neu[facility] [address] [facility] [address] [place] [address] [place] Sethi MD E-prescribing Refill Request 03/20/2023 Telephone [facility] Neu[facility] [address] [facility] [address] [place] [address] [place] Sethi MD Medication Check 02/20/2023 Refill [facility] Neu[facility] [address] [facility] [address] [place] [address] [place] Sethi MD E-prescribing Refill Request 01/10/2023 Refill [facility] Neu[facility] [address] [facility] [address] [place] [address] [place] Sethi MD E-prescribing Refill Request 08/08/2022 Refill [facility] Neu[facility] [address] [facility] [address] [place] [address] [place] Sethi MD E-prescribing Refill Request 07/25/2022 Telephone [facility] Neu[facility] [address] [facility] [address] [place] [address] [place] Sethi MD Appointment 06/07/2022 4:30 PM EDT Office Visit [facility] Neu[facility] [address] [facility] [address] [place] [address] [place] Sethi MD Essential tremor (Primary Dx) 05/23/2022 Refill [facility] Neu[facility] [address] [facility] [address] [place] [address] [place] Sethi MD E-prescribing Refill Request 03/11/2022 Telephone [facility] [address] [facility] [address] [place] [address] [place] Sethi MD Follow Up 03/07/2022 8:15 AM EDT Office Visit [facility] Neu[facility] [address] [facility] [address] [place] [address] Asutin Sethi MD Essential tremor (Primary Dx) 02/22/2022 Telephone [facility] Neu[facility] [address] [facility] [address] [place] [address] [place] Sethi MD Appointment 01/19/2022 Telephone [facility] [address] [facility] [address] [place] [address] [place] Sethi MD Follow Up 12/24/2021 Refill [facility] [address] [facility] [address] [place] [address] [place] Sethi MD 12/11/2021 Refill [facility] [address] [facility] [address] [place] [address] [place] Sethi MD E-prescribing Refill Request 11/15/2021 Telephone [facility] [address] [facility] [address] [place] [address] [place] Sethi MD Follow Up (DBS adjustment ) 10/29/2021 4:00 PM EDT Office Visit [facility] Neu[facility] [address] [facility] [address] [place] [address] [place] Sethi MD Essential tremor (Primary Dx) 10/28/2021 Refill [facility] Neu[facility] [address] [facility] [address] [place] [address] Toma Salas MD E-prescribing Refill Request 09/26/2021 Refill [facility] [address] [facility] [address] [place] [address] [place] Sethi MD E-prescribing Refill Request 09/12/2021 Refill [facility] [address] [facility] [address] [place] [address] [place] Sethi MD E-prescribing Refill Request 07/23/2021 Telephone [facility] [address] [facility] [address] [place] [address] Lorna Prado, SONALI Appointment 05/03/2021 3:30 PM EDT Office Visit [facility] [address] [facility] [address] [place] [address] [place] Sethi MD Essential tremor (Primary Dx) 04/16/2021 Telephone [facility] Neu[facility] [address] [facility] [address] [place] [address] [place] Sethi MD Appointment 01/29/2021 4:45 PM EDT Office Visit [facility] [address] [facility] [address] [place] [address] [place] Sethi MD Essential tremor (Primary Dx) 12/31/2020 Telephone [facility] Neu[facility] [address] [facility] [address] [place] [address] [place] Sethi MD Follow Up (DBS) 12/25/2020 Telephone [facility] Neu[facility] [address] [facility] [address] [place] [address] [place] Sethi MD Medication Problem (Lorazepam) 12/24/2020 Telephone [facility] Neu[facility] [address] [facility] [address] [place] [address] [place] Sethi MD Prior Authorization Request (lorazepam) 12/22/2020 Travel 12/22/2020 4:30 PM EDT Office Visit [facility] Neu[facility] [address] [facility] [address] [place] [address] [place] Sethi MD Essential tremor (Primary Dx); PTSD (post-traumatic stress disorder) 12/15/2020 Refill [facility] Neu[facility] [address] [facility] [address] [place] [address] [place] Sethi MD Refill Request (Xanax 0.25) 12/10/2020 10:30 AM EDT Office Visit [facility] [address] [facility] [address] [place] [address] [place] Sethi MD Essential tremor (Primary Dx) 12/09/2020 Telephone [facility] Neu[facility] [address] [facility] [address] [place] [address] [place] Sethi MD Follow Up (DBS) 12/08/2020 Travel 12/08/2020 8:00 AM EDT Office Visit [facility] Neu[facility] [address] [facility] [address] [place] [address] [place] Sethi MD Essential tremor (Primary Dx) 11/25/2020 Telephone [facility] Neu[facility] [address] [facility] [address] [place] [address] [place] Sethi MD Other 10/30/2020 Refill [facility] Neu[facility] [address] [facility] [address] [place] [address] [place] Sethi MD E-prescribing Refill Request 10/30/2020 Telephone [facility] Neu[facility] [address] [facility] [address] [place] [address] [place] Sethi MD Medication Problem (primidone) 10/20/2020 Travel 10/20/2020 8:00 AM EDT Consult (Initial) [facility] Neu[facility] [address] [facility] [address] [place] [address] [place] Sethi MD Essential tremor (Primary Dx) 10/01/2020 Telephone [facility] Neu[facility] [address] [facility] [address] [place] [address] [place] Sethi MD Appointment 03/13/2018 Orders Only [facility] Cardiology [address] [facility] [address] [place] [address] Jorge Pascual DO 03/13/2018 Orders Only [facility] Pre-Admission Testing [address] [address] Yamilex Langston NP 03/13/2018 3:30 PM EDT Office Visit [facility] Pre-Admission Testing [address] [address] Yamilex Langston NP Preop examination (Primary Dx); Gastroesophageal reflux disease, esophagitis presence not specified; Hyperlipidemia, unspecified hyperlipidemia type; Hypertension, unspecified type; Benign prostatic hyperplasia, unspecified whether lower urinary tract symptoms present; Mood disorder (HCC); RLS (restless legs syndrome); SAMMIE (obstructive sleep apnea) 03/13/2018 3:00 PM EDT Nurse Visit [facility] Pre-Admission Testing [address] [address] Poonam Pedersen, RN Gastroesophageal reflux disease, esophagitis presence not specified (Primary Dx) 02/19/2018 2:45 PM EDT Consult (Initial) [facility] General Surgery [address] [address] Trevor Lo MD Gastroesophageal reflux disease without [...] problems Social History Smoking Status as of 10/07/2024 Tobacco Use Types Packs/Day Years Used Date [...] Not on file Procedures * Due to [place] state law, this organization might not be [...] XRAY ESOPHAGUS 11/14/2017 Results * Due to [place] state law, this organization might not be [...] EDT 03/13/2018 8:44 PM EDT Yamilex Langston INTELLIGENCE DIRECTOR CARDIOVASCULAR-WITH INBSK T RTG Final Result [facility] * PROTHROMBIN TIME (PT) (INR), BLOOD (03/13/2018 4:11 PM EDT) INR 1.0 [facility] Comment: Reference Range ? 0.9-1.1 Moderate-intensity Warfarin Therapy 2.0-3.0 Higher-intensity Warfarin Therapy ?? 3.0-4.0 PT 10.7 9.0 - 11.5 sec [facility] Comment: For more information on this test, go to: http://[email or web address].[email or web address]/faq/PEK415 03/13/2018 4:11 PM EDT 03/13/2018 9:37 PM EDT Narrative Resulting Agency Comment [id number] Yamilex Langston INTELLIGENCE DIRECTOR LAB SAME DAY RESULT Final Result [facility] [address] [place] [address] * CBC INCLUDES DIFFERENTIAL AND PLATELET COUNT [...] 9:37 PM EDT Narrative Resulting Agency Comment [id number] Yamilex Langston INTELLIGENCE DIRECTOR LAB SAME DAY RESULT Final Result Performing Organization Address City/State/[facility] Co de Phone Number [facility] [address] [place] [address] * HEPATIC FUNCTION PANEL (ALT,AST,ALK PH,BILI'S,TP,ALB) (03/13/2018 [...] 9:37 PM EDT Narrative Resulting Agency Comment [id number] us Yamilex Langston INTELLIGENCE DIRECTOR LABORATORY Final Res ult [facility] [address] [place] [address] * BASIC METABOLIC PANEL WITH (GFR) (03/13/2018 4:11 PM EDT) Glucose 98 65 - 99 mg/dL [facility] Comment:Fasting reference in terval Urea Nitrogen Blood (BUN) 20 7 - 25 mg/dL [facility] Creatinine 1.05 0.70 - 1.25 mg/dL [facility] Comment: For patients >49 years of age, the reference limit for Creatinine is approximately 13% higher for people identified as -[place]. GFR 74 > OR = 60 mL/min/1 [...] needs for GFR calculation. Resulting Agency Comment [id number] Yamilex Langston INTELLIGENCE DIRECTOR LABORATORY Final Res ult [facility] [address] [place] [address] * XRAY ESOPHAGUS (11/14/2017) 11/14/2017 us Pricila [...] specified forms of tremor 06/07/2022 Care Teams Agriculture Research Director Relationship Specialty Start Date [place] [address] PCP - General Family Medicine 02/10/21
--- OUTSIDE RECORDS SUMMARY | 2024-10-07 15:41 | XMS_ITS | Encounter Summary ---
Author Organization [facility] Address [address] [place] [address] Care Team Providers Care Oil Gauger Name Role Phone Adeline Guo MD Primary Care Provider [phone] Feliciano Evans MD Unavailable Yara Harding MD Unavailable [phone] Encounter Details Date Type Department Care Team [...] Info) Description 10/14/2024 1:00 PM EDT Consult [facility] Neurology [address] [phone] Suman Dudley MD [address] [place] [address] 10/16/2024 3:50 PM EDT Office Visit [facility] Neurology [address] [address] Nehemias Hussein, PSYCHIATRIC SECURITY NURSE [address] [place] [address] documented as of this encounter Visit Diagnoses Not on filedocumented in this encounter Care Teams Oil Gauger Relationship Specialty Start Date End Date Adeline Guo MD [address] [place] [address] PCP - General Internal Medicine 03/10/20 Feliciano Evans MD [address] [place] [address],[place] [address] [facility] [place] [address] Referring Provider 10/28/20 Yara Harding MD [address] [place] [address],[place] [address] [facility] [place] [address] Neurology 03/20/23 [place] Sethi [address] [place] [address] Neurology Neurology 06/07/22 documented as of this encounter
--- OUTSIDE RECORDS SUMMARY | 2024-10-07 15:41 | XMS_ITS | Encounter Summary ---
Author Organization [facility] Address [address] [place] [address] Care Team Providers Care Inside Wirer Name Role Phone Adeline Guo MD Primary Care Provider [phone] Feliciano Evans MD Unavailable Yara Harding MD Unavailable [phone] Reason for Visit * Reason Comments Essential Tremor Encounter Details Date Type Department Care Team (Late st Contact Info) Description 09/09/2024 1:00 PM EST Consult [facility] Neurology [address] [phone] Suman Dudley MD [address] [place] [phone] Essential tremor (Primary Dx); Status post deep [...] Dudley MD - 09/05/2024 11:46 AM EST [facility] Name: Bj Wolf [...] percept 11/2020). He had been followed by [facility] movement disorders specialist Dr. Rosalina [place] in [...] I said I would have someone from [employer] reach out to him to coordinate in [place]. On 07/19/24, Dr. 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 Professional [id number] Time for Brain Neurostimulator Analysis with Programming. Total time spent programming the patient was 40 minutes. X Time Spent Programming Coding Less than 8 minutes Not Reported 8-22 minutes 62307 x 1 23-37 minutes 25696 x 1 + 90775 x 1 x 38-52 minutes 79257 x 1 + 33698 x 2 53-67 minutes 07781 x 1 + 24440 x 3 68 [place] [address] Time Spent Analyzing Percept Data Coding 0-30 minutes Not Reported 31-75 minutes 14369 75 minutes or longer 64075 x 1 + 75770 x 1 documented in this encounter Plan of Treatment Upcoming Encounters Date Type Department Care Team (Late st Contact Info) Description 10/14/2024 1:00 PM EDT Consult [facility] Neurology [address] [address] Suman Dudley MD [address] [place] [address] 10/16/2024 3:50 PM EDT Office Visit [facility] Neurology [address] [address] Nehemias Hussein APRN [address] [place] [address] documented as of this encounter Visit Diagnoses Diagnosis Essential tremor- Primary Status post deep brain stimulator placement documented in this encounter Care Teams Inside Wirer Relationship Specialty Start Date End Date Adeline Guo MD [address] [place] [address] PCP - General Internal Medicine 03/10/20 Feliciano Evans MD [address] [place], [place] [address] [place] [place] [address] Referring Provider 10/28/20 Yara Harding MD [address] [place] [address],[facility] [address] [facility] [place] [address] Neurology 03/20/23 [place] Sethi [address] [place] [address] Neurology Neurology 06/07/22 documented as of this encounter
--- OUTSIDE RECORDS SUMMARY | 2024-10-07 15:41 | XMS_ITS | Encounter Summary ---
Author Organization [facility] Address [address] [place] [address] Care Team Providers Care Glaze Mixer Name Role Phone Adeline Locke Primary Care Provider Unavailable Reason for Visit * Reason Onset Date Comments Neurology apt with Dr. Kitchen 11/30/2021 Encounter Details Date Type Department Care Team (Late st Contact Info) Description 11/30/2021 Telephone [facility] [address] [place] [address] Telephone Intake, Staff Neurology apt with Dr. [...] scheduling. A good call back number is [phone]. documented in this encounter Plan of Treatment Not on file documented as of this encounter Visit Diagnoses Not on filedocumented in this encounter Care Teams Glaze Mixer Relationship Specialty Start Date End Date Adeline Locke PCP - General Pediatrics 11/14/17 documented as of this encounter
--- OUTSIDE RECORDS SUMMARY | 2024-10-07 15:41 | XMS_ITS | Encounter Summary ---
Author Organization [facility] Address [address] [place] [address] Care Team Providers Care Sales Consulting Director Name Role Phone Adeline Guo MD Primary Care Provider [phone] Feliciano Evans MD Unavailable Yara Harding MD Unavailable [phone] Encounter Details Date Type Department Care Team ([facility] Contact Info) Description 05/20/2021 Scanned Document [facility] Neurosurgery [address] [place] [phone] Monroe Choi MD [address] [facility] [place] [address] [place] [phone] Social History Tobacco Use Types Packs/Day Years [...] Encounters Date Type Department Care Team ([facility] Contact Info) Description 10/14/2024 1:00 PM EDT Consult [facility] Neurology [place] [address] [facility] [address] [place] [address] Suman Dudley MD 35 [facility] 6 [place] [address] 10/16/2024 3:50 PM EDT Office Visit [facility] Neurology [place] 35 [facility] 6 [place] [address] Nehemias Hussein APRN [address] [address] documented as of this encounter Visit Diagnoses Not on filedocumented in this encounter Care Teams Sales Consulting Director Relationship Specialty Start Date End Date Adeline Guo MD [address] [place] [address] PCP - General Internal Medicine 03/10/20 Feliciano Evans MD [address] [place] [address] Referring Provider 10/28/20 Yaar Harding MD [address] [place] [address] Neurology 03/20/[address] [address] Neurology Neurology 06/07/22 documented as of this encounter
--- OUTSIDE RECORDS SUMMARY | 2024-10-07 15:41 | XMS_ITS | Encounter Summary ---
Author Organization [facility] Address [address] [place] [address] Care Team Providers Care Resource Engineer Name Role Phone Curt Wiseman MD Primary Care Provider [phone] Encounter Details Date Type Department Care Team (Late st Contact Info) Description 08/21/2024 Telephone Orthopedic Surgery - [place] [address] [facility] [address] [place] [phone] Michelle Watson PA [address] [facility] [address] [place] [phone] Social History Tobacco Use Types Packs/Day Years [...] one available. He can be reached at [phone] * Camelia Amato MA - 08/21/2024 1:49 [...] Info) Description 11/05/2024 4:00 PM EDT Appointment [facility] Neurodiagnostic [address] [place] [phone] documented as of this encounter Visit Diagnoses Not on filedocumented in this encounter Care Teams Resource Engineer Relationship Specialty Start Date End Date Curt Wiseman MD [address] [place] [address] PCP - General Family Medicine 07/22/24 documented as of this encounter
--- OUTSIDE RECORDS SUMMARY | 2024-10-07 15:41 | XMS_ITS | Encounter Summary ---
Author Organization [facility] Address [address] [place] [address] Care Team Providers Care Senior Technical Editor Name Role Phone Adeline Guo MD Primary Care Provider [phone] Feliciano Evans MD Unavailable Yara Harding MD Unavailable [phone] Encounter Details Date Type Department Care Team (Late Contact Info) Description 10/28/2021 Scanned Document [facility] Neurosurgery [address] [place] [phone] Monroe Choi MD [address] [place] [phone] Social History Tobacco Use Types Packs/Day Years [...] Upcoming Encounters Date Type Department Care Team ([facility] Contact Info) Description 10/14/2024 1:00 PM EDT Consult [facility] Neurology [address] [place] [address] Suman Dudley MD [address] [address] 10/16/2024 3:50 PM EDT Office Visit [facility] Neurology [place] 35 [facility] 6 [place] [address] Nehemias Hussein APRN [address] [address] documented as of this encounter Visit Diagnoses Not on filedocumented in this encounter Care Teams Senior Technical Editor Relationship Specialty Start Date End Date Adeline Guo MD [address] [place] [address] PCP - General Internal Medicine 03/10/20 Feliciano Evans MD [address] [place] [address] Referring Provider 10/28/20 Yara Harding MD [address] [place] [address] Neurology 03/20/[address] [address] Neurology Neurology 06/07/22 documented as of this encounter
--- OUTSIDE RECORDS SUMMARY | 2024-10-07 15:41 | XMS_ITS | Patient Health Record ---
Author Organization [facility] Address [address] [place] [address] Care Team Providers Care Converting Operator Name Role Phone Adeline Guo Primary Care Provider Pricila Valenzuela Unavailable [phone] REASON FOR REFERRAL No Information MEDICATIONS Medication [...] GENERALIZED (789.07) Active confirmed Generalized abdominal pain (337333392) Problem Diarrhea (787.91) Active confirmed Diarrhea (87959927) Problem Vomiting (787.03) Active confirmed Vomiting (853696646) Problem Abnormal loss of weight (783.21) Active confirmed Abnormal weight loss (394329992) Problem GERD [Gastroesophage al reflux disease] (530.81) Active confirmed Gastroesophagea l reflux disease (disorder) (838633724) Problem Projectile vomiting with nausea (R11.12) Active confirmed Vomiting (948101935) Problem Diarrhea, unspecified type (R19.7) Active confirmed Diarrhea (69696892) Problem Chronic GERD (K21.9) Active confirmed 512344691 Problem Slow transit constipation (K59.01) Active confirmed 07175856 Problem Intractable cyclical vomiting with nausea (G43.A1) Active confirmed 69606505 Problem Barretts esophagus without dysplasia (K22.70) Active confirmed 015127639 Problem Bleeding per rectum (K62.5) Active confirmed 59152913 PLAN OF TREATMENT Pending Test Test Name Order Date *Ova+Parasites Exam, Routine 03/31/2015 MRI:ENTEROGRAPHY 03/31/2015 Gastric emptying study 03/31/2015 CT Abdomen Pelvis with contrast 08/05/20 16 Insurance Providers Payer Name Payer Address Payer Phone Subscriber Number Group Number Insured Name Patient Relationship to Insured Coverage Start Date Coverage End Date Medicare B [place] National [place] [address] [place] [address] [phone] [id number] THALIA DANIELSON Self - patient is the insured Medicaid OF [facility] PLAN [address] [place] [address] [id number] THALIA DANIELSON Self - patient is the insured MEDICAL (GENERAL) HISTORY Medical History History ICD Code Hypertension Coronary artery disease s/p PCI Depression/ anxiety Hyperlipidemia Surgical History Surgery Date(Month/Year) cardiac stents
--- OUTSIDE RECORDS SUMMARY | 2024-10-07 15:41 | XMS_ITS | Clinical Summary ---
Author Organization [facility] Address [address] [place] [address] Care Team Providers Care Ebd Special Education Teacher Name Role Phone Adeline Guo MD Primary Care Provider [phone]- [phone] Feliciano Evans MD Unavailable Yara Harding MD Unavailable [phone] Allergies Active Allergy Reactions Criticality Noted Date [...] deep brain stimulator placement 02/04 Overview (09/24/2021): [employer], Linear lead, right chest Postoperative visit 12/01/2020 Essential tremor 11/04/2020 Benign essential tremor 04/07/2020 Encounters Date Type Department Care Team Description 10/03/2024 Telephone [facility] Neurology [address] [phone] Suman Dudley MD 09/09/2024 1:00 PM EST Consult [facility] Neurology [address] [phone] Suman Dudley MD Essential tremor (Primary Dx); Status post deep brain stimulator placement 09/09/2024 Travel 07/19/2024 9:20 AM EST Office Visit [facility] Neurosurgery [address] [phone] Monroe Choi MD Chronic pain of right knee (Primary Dx); Benign essential tremor; Status post deep brain stimulator placement 07/19/2024 Telephone [facility] Neurology [address] [place] [address] Suman Dudley MD 07/19/2024 Telephone [facility] Neurosurgery [address] [address] Monroe Choi MD 07/19/2024 Travel from Last [...] [facility] Neurology [address] [place] [phone] Suman Dudley MD 35 [facility] [place] [address] [place] [address] 10/16/2024 3:50 PM EDT Office Visit [facility] Neurology [address] [place] [phone] Nehemias Hussein APRN 35 [facility] [address] [place] [address] Health Maintenance Due Date Last Done Comments Hepatitis C Virus Screening 1950 DTaP/Tdap/Td Vaccines (1 - Tdap) 1971 Colonoscopy 1997 Pneumococcal Vaccines 50+ (1 of 1 - PCV) 2002 Zoster (Shingles) Vaccine (1 of 2) 2002 RSV Vaccine 60 years and older and Patients (1 - Risk 60-74 years 1-dose series) 2012 COVID-19 Vaccine ( season) 2024 11/08/2022, 04/22/2022, 11/11/2021, Additional history exists Influenza Vaccine Completed 04/07/2024, , 05/25/2022, Additional history exists Hepatitis B Vaccines Aged Out No long er eligible based on patient's age to complete this topic Medical Devices Implanted Type Area Owner Device Identifier Shelf Expiration Date Model / Serial / Lot [id number] Extension Neurostimulator 60cm 1.3-3.8mm 1.5mm Std Qdpl Dist - [id number] Implanted:Qty: 1 on 11/25/2020 by Monroe Choi MD at [facility] Cerebral [employer] MINIMALLY INVASIVE T 09/10/2023 [id number] / [id number] / [id number] Extension Neurostimulator 60cm 1.3-3.8mm 1.5mm Std Qdpl Dist - [id number] Implanted:Qty: 1 on 11/25/2020 by Monroe Choi MD at [facility] Cerebral [employer] MINIMALLY INVASIVE T 01/31/2024 [id number] / [id number] 2V / [id number] Screw Bone Mdfc 5mm 1.5mm Self Drill Htorq Xdr Grn [place] - [id number] Implanted:Qty: 4 on 11/04/2020 by Monroe Choi MD at [facility] Maxillofacial Cranial [employer] [id number] / / [id number]-40 Lead Neurostimulator Strg Cylinder Firm Deep Brn Stm - [id number] Implanted:Qty: 1 on 11/04/2020 by Monroe Choi MD at [facility] Stimulator Right: Brain [employer] MINIMALLY INVASIVE T 05/25/2024 3387S-40 / / [id number] 3387s-40 Lead Neurostimulator Strg Cylinder Firm Deep Brn Stm - [id number] Implanted:Qty: 1 on 11/04/2020 by Monore Choi MD at [facility] Stimulator [employer] MINIMALLY INVASIVE T 3387S-40 / / [id number] Neurostimulator Implantable 68mm X 51mm Percept 2 Chnl 61g - [id number] Implanted:Qty: 1 on 11/25/2020 by Monroe Choi MD at [facility] Stimulator [employer] MINIMALLY INVASIVE T 08/20/2022 [id number] / [id number] 1H / [id number] Funeral Detail Neurostimulator Patient Percept Pc Device - [id number] Implanted:Qty: 1 on 11/25/2020 by Monroe Choi MD at [facility] Stimulator [employer] MINIMALLY INVASIVE T [id number] / / [id number] Kit Stimulator Tunnel Deep Brn Stm - [id number] Implanted:Qty: 1 on 11/25/2020 by Monroe Choi MD at [facility] Stimulator [employer] MINIMALLY INVASIVE T 3755 / / 620-010 Filler Bone Void 10cc 20cc Calcium Slf Stimulan Rpd Cure Kit - [id number] Implanted:Qty: 1 on 11/04/2020 by Monroe Choi MD at [facility] Void Filler N/A: Brain [employer] 12/04/2022 620-010 / / [id number] 620-010 Filler Bone Void 10cc 20cc Calcium Slf Stimulan Rpd Cure Kit - [id number] Implanted:Qty: 1 on 11/25/2020 by Monroe Choi MD at [facility] Void Filler Right: Chest [employer] 12/04/2022 620-010 / / [id number] Description:mixed with 1 gm vancomycin powder and 1.2gm tobramycin powder Explanted Type Area Owner Device Identifier Shelf Expiration Date Model / Serial / Lot 70-It-Ar5p Electrode Neurostimulator [employer] Dzap - [id number] Explanted:Qty: 1 on 11/04/2020 by Monroe Choi MD at [facility] Stimulator Brain [employer] 10/15/2021 70-IT-AR 5P / / [id number] 66-It-Ar4p Electrode Neurostimulator Microtargeting [facility] - [id number] Explanted:Qty: 1 on 11/04/2020 by Monroe Choi MD at [facility] Stimulator Brain [employer] 02/25/2023 66-IT-AR 4P / / [id number] 4502-68 Cable Neurostimulator Twstlk Scrn Sterl Lf - [id number] Explanted:Qty: 1 on 11/04/2020 by Monroe Choi MD at [facility] Stimulator Right: Brain [employer] MINIMALLY INVASIVE T 09/03/2024 3550-68 / / [id number] Description:NOT AN IMPLANT Advance Directives * Full Code (Latest Code Status on File) Date Activated Date Inactivated Comments 11/25/2020 8:30 AM * Full Code Date Activated Date Inactivated Comments 11/04/2020 4:31 PM 11/25/2020 7:56 AM Care Teams Ebd Special Education Teacher Relationship Specialty Start Date End Date Adeline Guo MD [address] [place] [address] PCP - General Internal Medicine 03/10/20 Feliciano Evans MD [address] [place] [address],[facility] [address] [place] [address] Referring Provider 10/28/20 Yara Harding MD [address] [place] [address],[facility] [address] [place] [address] Neurology 03/20/23 Austin Sethi [address] [place] [address] Neurology Neurology 06/07/22
--- OUTSIDE RECORDS SUMMARY | 2024-10-07 15:41 | XMS_ITS | Referral Summary ---
Author Organization [facility] Address [address] [place] [address] Care Team Providers Care Hat Forming Machine Feeder Name Role Phone Adeline Locke Primary Care Provider Unavailable Encounters Date Type Department Care Team Description 09/13/2024 Telephone [facility] Sports Medicine [address] [place] [address] Telephone Intake, Staff PAC Patient Request Call Back_Luke (Pt would like call back in regards resident care spec used during surgery back in 2019 with [...] on file Medical Devices Implanted Type Area Crop Consultant Device Identifier Shelf Expiration Date Model / Serial / Lot Baseplate Reverse Shoulder Prosthesis With P2 Coating 30mm - [id number] Implanted:Qty: 1 on 07/12/2019 by Andrew Butler MD at [facility] Implant [employer] 05/03/2025 508-32-204 / / [id number] Head Glenoid With Retaining Screw [place] Shoulder Prosthesis Neutral 32mm - [id number] Implanted:Qty: 1 on 07/12/2019 by Andrew Butler MD at [facility] Implant [employer] 04/09/2025 508-32-101 / / [id number] Insert Socket Humeral Standard Hxe-Plus Rsp Sterile 76ber9ow - [id number] Implanted:Qty: 1 on 07/12/2019 by Andrew Butler MD at [facility] Implant [employer] 05/31/2023 509-00-432 / / [id number] Stem Humeral Standard Reverse Shoulder Prosthesis [id number] - [id number] Implanted:Qty: 1 on 07/12/2019 by Andrew Butler MD at [facility] Implant [employer] 07/12/2024 530-10-108 / / [id number] Screw Locking Reverse Shoulder Prosthesis 3vfy38of - [id number] Implanted:Qty: 1 on 07/12/2019 by Andrew Butler MD at [facility] Screw [employer] 03/24/2025 506-03-130 / / [id number] Screw Locking Bone Reverse Shoulder Prosthesis 3ocm06cb - [id number] Implanted:Qty: 1 on 07/12/2019 by Andrew Butler MD at [facility] [employer] 04/19/2025 506-03-122 / / [id number] Screw Locking Reverse Shoulder Prosthesis 6cve66hn - [id number] Implanted:Qty: 1 on 07/12/2019 by Andrew Butler MD at [facility] [employer] 02/27/2025 506-03-130 / / [id number] Insurance [facility] Advance Directives * Full Code (Latest Code Status on File) Date Activated Date Inactivated Comments 07/12/2019 1:40 PM 07/13/2019 8:20 PM * Full Code Date Activated Date Inactivated Comments 07/12/2019 6:13 AM 07/12/2019 1:40 PM Care Teams Hat Forming Machine Feeder Relationship Specialty Start Date End Date Adeline Locke PCP - General Pediatrics 11/14/17
--- OUTSIDE RECORDS SUMMARY | 2024-10-07 15:41 | XMS_ITS | Encounter Summary ---
Author Organization [facility] Address [address] [place] [address] Care Team Providers Care Textile Screen Maker Name Role Phone Adeline Guo MD Primary Care Provider [phone]- [phone] Feliciano Evans MD Unavailable Yara Harding MD Unavailable [phone] Encounter Details Date Type Department Care Team (Late Contact Info) Description 05/10/2022 Scanned Document [facility] NEUROSURGERY SCAN Neurosurgery, Scan Social History [...] Upcoming Encounters Date Type Department Care Team ([facility] [address] [place] [address] Contact Info) Description 10/14/2024 1:00 PM EDT Consult [facility] Neurology [address] [place] [address] Suman Dudley MD [address] [place] [address] 10/16/2024 3:50 PM EDT Office Visit [facility] Neurology Jl [address] [facility] [address] [place] [phone] Nehemias Hussein, RAFAEL [address] [facility] [address] [place] [address] documented as of this encounter Visit Diagnoses Not on filedocumented in this encounter Care Teams Textile Screen Maker Relationship Specialty Start Date End Date Adeline Guo MD [address] [place] [address] PCP - General Internal Medicine 03/10/20 Feliciano Evans MD [address] [place] [address],[address] [address] Referring Provider 10/28/20 Yara Harding MD [address] [place] [address],[address] [address] Neurology 03/20/[address] [address] Neurology Neurology 06/07/22 documented as of this encounter
--- OUTSIDE RECORDS SUMMARY | 2024-10-07 15:41 | XMS_ITS | Clinical Summary ---
Author Organization [facility] Address [address] [place] [address] Care Team Providers Care Lawn Care Technician Name Role Phone Adeline Locke Primary Care [...] Type Department Care Team Description 09/13/2024 Telephone [facility] Sports Medicine [address] [place], [place] [address] Telephone Intake, Staff PAC Patient Request Call Back_Luke (Pt would like call back in regards business development associate used during surgery back in 2019 with [...] this topic Medical Devices Implanted Type Area Saw Filer Device Identifier Shelf Expiration Date Model / Serial / Lot Baseplate Reverse Shoulder Prosthesis With P2 Coating 30mm - [id number] Implanted:Qty: 1 on 07/12/2019 by Andrew Butler MD at [facility] [place] Implant [employer] 05/03/2025 508-32-204 / / [id number] Head Glenoid With Retaining Screw [place] Shoulder Prosthesis Neutral 32mm - [id number] Implanted:Qty: 1 on 07/12/2019 by Andrew Butler MD at [facility] Implant [employer] 04/09/2025 508-32-101 / / [id number] Insert Socket Humeral Standard Hxe-Plus Rsp Sterile 68jzj5ag - [id number] Implanted:Qty: 1 on 07/12/2019 by Andrew Butler MD at [facility] Implant [employer] 05/31/2023 509-00-432 / / [id number] Stem Humeral Standard Reverse Shoulder Prosthesis 36vnw230qw - [id number] Implanted:Qty: 1 on 07/12/2019 by Andrew Butler MD at [facility] [place] Implant [employer] 07/12/2024 530-10-108 / / [id number] Screw Locking Reverse Shoulder Prosthesis 1gzo24lr - [id number] Implanted:Qty: 1 on 07/12/2019 by Andrew Butler MD at [facility] [place] Screw [employer] 03/24/2025 506-03-130 / / [id number] Screw Locking Bone Reverse Shoulder Prosthesis 1wdj62pq - [id number] Implanted:Qty: 1 on 07/12/2019 by Andrew Butler MD at [facility] Screw [employer] 04/19/2025 506-03-122 / / [id number] Screw Locking Reverse Shoulder Prosthesis 0jlh17xt - [id number] Implanted:Qty: 1 on 07/12/2019 by Andrew Butler MD at [facility] Screw [employer] 02/27/2025 506-03-130 / / [id number] Insurance [facility] Advance Directives * Full Code (Latest Code Status on File) Date Activated Date Inactivated Comments 07/12/2019 1:40 PM 07/13/2019 8:20 PM * Full Code Date Activated Date Inactivated Comments 07/12/2019 6:13 AM 07/12/2019 1:40 PM Care Teams Lawn Care Technician Relationship Specialty Start Date End Date Adeline Locke PCP - General Pediatrics 11/14/17
--- OUTSIDE RECORDS SUMMARY | 2024-10-07 15:41 | XMS_ITS | Encounter Summary ---
Author Organization [facility] Address [address] [place] [address] Care Team Providers Care Coater Associate Name Role Phone Adeline Guo MD Primary Care Provider [phone]- [phone] Feliciano Evans MD Unavailable Yara Harding MD Unavailable [phone] Encounter Details Date Type Department Care Team (Late Contact Info) Description 08/05/2020 Scanned Document [facility] Neurosurgery [address] [phone] Mnoroe Choi MD [address] [place] [address] Social History Tobacco Use Types Packs/Day Years [...] Info) Description 10/14/2024 1:00 PM EDT Consult [facility] Neurology [address] [address] Suman Dudley MD [address] [place] [address] 10/16/2024 3:50 PM EDT Office Visit [facility] Neurology Jl [address] [facility] [address] [place] [address] Nehemias Hussein, RAFAEL 35 [facility] [address] [place] [address] documented as of this encounter Visit Diagnoses Not on filedocumented in this encounter Care Teams Coater Associate Relationship Specialty Start Date End Date Adeline Guo MD [address] [place] [address] PCP - General Internal Medicine 03/10/20 Feliciano Evans MD [address] [place] [address],[facility] [address] [place] [address] Referring Provider 10/28/20 Yara Harding MD [address] [place] [address],[facility] [address] [place] [address] Neurology 03/20/23 Austin Sethi [address] [place] [address] Neurology Neurology 06/07/22 documented as of this encounter
--- OUTSIDE RECORDS SUMMARY | 2024-10-07 15:41 | XMS_ITS | Encounter Summary ---
Author Organization [facility] Address [address] [place] [address] Care Team Providers Care Fruit Canner Name Role Phone Adeline Guo MD Primary Care Provider [phone]- [phone] Feliciano Evans MD Unavailable Yara Harding MD Unavailable [phone] Encounter Details Date Type Department Care Team (Late st Contact Info) Description 07/19/2024 Telephone [facility] Neurology [address] [phone] Suman Dudley MD [address] [place] [address] Social History Tobacco Use Types Packs/Day Years [...] [facility] Neurology [address] [phone] Suman Dudley MD [address] [place] [address] 10/16/2024 3:50 PM EDT Office Visit [facility] Neurology [address] [phone] Nehemias Hussein APRN [address] [address] documented as of this encounter Visit Diagnoses Not on filedocumented in this encounter Care Teams Fruit Canner Relationship Specialty Start Date End Date Adeline Guo MD [address] [place] [address] PCP - General Internal Medicine 03/10/20 Feliciano Evans MD [address] [place] [address] Referring Provider 10/28/20 Yara Harding MD [address] [place] [address] Neurology 03/20/23 Austin Sethi [address] [place] [address] Neurology Neurology 06/07/22 documented as of this encounter
--- OUTSIDE RECORDS SUMMARY | 2024-10-07 15:41 | XMS_ITS | Encounter Summary ---
Author Organization [facility] Address [address] [place] [address] Care Team Providers Care Outside Sales Professional Name Role Phone Adeline Guo MD Primary Care Provider [phone] Feliciano Evans MD Unavailable Yara Harding MD Unavailable Encounter Details Date Type Department Care Team ([facility] Contact Info) Description 11/26/2020 Prep for Surgery [facility] [address] [facility] [address] [place] [phone] Mariama Allred, RAFAEL [address] [place] [address] Social History Tobacco Use Types [...] Upcoming Encounters Date Type Department Care Team ([facility] Contact Info) Description 10/14/2024 1:00 PM EDT Consult [facility] Neurology Jl [address] [facility] 6 [place] [address] Suman Dudley MD 35 [facility] 6 [place] [address] 10/16/2024 3:50 PM EDT Office Visit [facility] Neurology [place] [address] [facility] 6 [place] [address] Nehemias Hussein APRN [address] [address] documented as of this encounter Visit Diagnoses Not on filedocumented in this encounter Care Teams Outside Sales Professional Relationship Specialty Start Date End Date Adeline Guo MD [address] [place] [address] PCP - General Internal Medicine 03/10/20 Feliciano Evans MD [address] [place] [address] Referring Provider 10/28/20 Yara Harding MD [address] [place] [address] Neurology 03/20/[address] [address] Neurology Neurology 06/07/22 documented as of this encounter
--- OUTSIDE RECORDS SUMMARY | 2024-10-07 15:41 | XMS_ITS | Encounter Summary ---
Author Organization [facility] Address [address] [place] [address] Care Team Providers Care Appliance Technician Name Role Phone Adeline Locke Primary Care Provider Unavailable Reason for Visit * Reason Onset Date Comments PAC Patient Request Call Back_Luke 09/13/2024 Pt would like call back in regards technology internship used during [place] back [place] [address] Butler. Encounter Details Date Type Department Care Team (Late st Contact Info) Description 09/13/[address] [address] Telephone Intake, Staff PAC Patient Request Call Back_Luke (Pt would like call back in regards technology internship used during surgery back in 2019 with [...] I provided him the name of the technology internship. [employer]. documented in this encounter Plan of Treatment Not on file documented as of this encounter Visit Diagnoses Not on filedocumented in this encounter Care Teams Appliance Technician Relationship Specialty Start Date End Date Adeline Locke PCP - General Pediatrics 11/14/17 documented as of this encounter
--- OUTSIDE RECORDS SUMMARY | 2024-10-07 15:42 | XMS_ITS | Encounter Summary ---
Author Organization [employer] Address [address] [place] [address] [address] [place] [address] Care Team Providers Care Wood And Wood Products Factory Worker Name Role Phone Unavailable Primary Care Provider Unavailabl e Reason for Visit * Reason Onset Date Comments appt temp crown fell off/recement 03/19/2024 Encounter Details Date Type Department Care Team (Late st Contact Info) Description 03/19/2024 Telephone [facility]ULT [facility] [address] [place] [address] Rocío Castillo, ROSEMARIES [address] [place] [address] appt temp crown fell off/recement Social History [...] off. Ok to schedule per Megan front end application developer. Informed front end application developer via phone that [employer] is not an insurance we have access [...] tomorrow at 1:30. They would like to pharmacy picking technician in the morning to have it ready to take prior to treatment. The pharmacy on file is the one to use. documented in this encounter Plan of Treatment Upcoming Encounters Date Type Department Care Team (Late st Contact Info) Description 10/23/2024 3:15 PM EDT Office Visit [facility] ADULT DENTAL [address] [place] [address] Alex Burns, JANAK [address] [place] [address] documented as of this encounter Visit Diagnoses Not on filedocumented in this encounter
--- OUTSIDE RECORDS SUMMARY | 2024-10-07 15:42 | XMS_ITS | Clinical Summary ---
Author Organization [facility] Address [address] [place] [address] 7t [place] [address] Care Team Providers Care Oracle E Business Developer Name Role Phone Unavailable Primary Care Provider [...] Type Department Care Team Description 09/05/2024 Telephone [facility] ADULT DENTAL [address] [place], [place] [phone] Alex Burns DMD 07/23/2024 3:30 PM EST Office Visit [facility] ADULT DENTAL [address] [place], [place] [phone] Andre Bang from Last 3 Months Social [...] Mass Index - - Plan of Treatment Upcoming Encounters Date Type Department Care Team (Late st Contact Info) Description 10/23/2024 3:15 PM EDT Office Visit [facility] ADULT DENTAL [address] [place] [address] Alex Burns, DMD [address] [place] [address] Health Maintenance Due Date Last Done Comments [...] Relevant to Health Maintenance Insurance DENTAL - [facility]
--- OUTSIDE RECORDS SUMMARY | 2024-10-07 15:42 | XMS_ITS | Encounter Summary ---
Author Organization [facility] Address [address] [place] [address] Care Team Providers Care Manager Heavy Duty Name Role Phone Adeline Guo MD Primary Care Provider [phone]- [phone] Feliciano Evans MD Unavailable Yara Harding MD Unavailable [phone] Encounter Details Date Type Department Care Team (Late Contact Info) Description 05/20/2020 Scanned Document [address] [place] [address] Provider, Generic Social History Tobacco Use [...] Description 10/14/2024 1:00 PM EDT Consult [facility] Neurology [address] [address] Suman Dudley MD [address] [place] [address] 10/16/2024 3:50 PM EDT Office Visit [facility] Neurology [place] 35 [facility] [address] [place] [address] Nehemias Hussein, RAFAEL 35 [facility] [address] [place] [address] documented as of this encounter Visit Diagnoses Not on filedocumented in this encounter Care Teams Manager Heavy Duty Relationship Specialty Start Date End Date Adeline Guo MD [address] [place] [address] PCP - General Internal Medicine 03/10/20 Feliciano Evans MD [address] [place] [address],[facility] [address] [place] [address] Referring Provider 10/28/20 Yara Harding MD [address] [place] [address],[facility] [address] [place] [address] Neurology 03/20/[address] [place] [address] [address] Neurology Neurology 06/07/22 documented as of this encounter
--- OUTSIDE RECORDS SUMMARY | 2024-10-07 15:42 | XMS_ITS | Encounter Summary ---
Author Organization [facility] Address [address] [place] [address] Care Team Providers Care Mental Health Clinician Name Role Phone Adeline Guo MD Primary Care Provider [phone]- [phone] Feliciano Evans MD Unavailable Yara Harding MD Unavailable [phone] Encounter Details Date Type Department Care Team ([facility] [address] [facility] Contact Info) Description 06/01/2022 Scanned Document [facility] Neurosurgery [address] [place] [address] Neurosurgery, Scan Social History Tobacco [...] Care Team ([facility] [address] Contact Info) Description 10/14/2024 1:00 PM EDT Consult [facility] Neurology [address] [place] [address] Suamn Dudley MD [address] [address] 10/16/2024 3:50 PM EDT Office Visit [facility] Neurology [place] [address] [address] Nehemias Hussein APRN [address] [address] documented as of this encounter Visit Diagnoses Not on filedocumented in this encounter Care Teams Mental Health Clinician Relationship Specialty Start Date End Date Adeline Guo MD [address] [place] [address] PCP - General Internal Medicine 03/10/20 Feliciano Evans MD [address] [place] [address] Referring Provider 10/28/20 Yara Harding MD [address] [place] [address] Neurology 03/20/23 [place] Sethi [address] [place] [address] Neurology Neurology 06/07/22 documented as of this encounter
--- OUTSIDE RECORDS SUMMARY | 2024-10-07 15:42 | XMS_ITS | Encounter Summary ---
Author Organization [facility] Address [address] [place] [address] Care Team Providers Care Cold Storage Supervisor Name Role Phone Adeline Guo MD Primary Care Provider [phone]- [phone] Feliciano Evans MD Unavailable Yara Harding MD Unavailable [phone] Encounter Details Date Type Department Care Team ([facility] Contact Info) Description 06/18/2020 Scanned Document [facility] Neurosurgery [address] [address] Monroe Choi MD [address] [place] [address] [place] [id number] Social History Tobacco Use Types Packs/Day Years [...] Description 10/14/2024 1:00 PM EDT Consult [facility] Neurology [address] 6 [place] [address] Suman Dudley MD [address] [address] 10/16/2024 3:50 PM EDT Office Visit [facility] Neurology [place] [address] [address] Nehemias Hussein APRN [address] [address] documented as of this encounter Visit Diagnoses Not on filedocumented in this encounter Care Teams Cold Storage Supervisor Relationship Specialty Start Date End Date Adeline Guo MD [address] [place] [address] PCP - General Internal Medicine 03/10/20 Feliciano Evans MD [address] [place] [address] Referring Provider 10/28/20 Yara Harding MD [address] [place] [address] Neurology 03/20/[address] [address] Neurology Neurology 06/07/22 documented as of this encounter
--- OUTSIDE RECORDS SUMMARY | 2024-10-07 15:42 | XMS_ITS | Encounter Summary ---
Author Organization [facility] Address [address] [place] [address] Care Team Providers Care Fiber Worker Name Role Phone Adeline Guo MD Primary Care Provider [phone]- [phone] Feliciano Evans MD Unavailable Yara Harding MD Unavailable [phone] Encounter Details Date Type Department Care Team (Late st Contact Info) Description 02/28/2023 [facility] Neurology [address] [place] [address] Yara Harding MD IS [facility] [address] [place] [address] Social History Tobacco Use Types Packs/Day Years [...] Info) Description 10/14/2024 1:00 PM EDT Consult [facility] Neurology [address] [address] Suman Dudley MD [address] [place] [address] 10/16/2024 3:50 PM EDT Office Visit [facility] Neurology [address] [address] Nehemias Hussein APRN [address] [place] [address] documented as of this encounter Visit Diagnoses Not on filedocumented in this encounter Care Teams Fiber Worker Relationship Specialty Start Date End Date Adeline Guo MD [address] [place] [address] PCP - General Internal Medicine 03/10/20 Feliciano Evans MD [address] [place] [address] Referring Provider 10/28/20 Yara Harding MD [address] [place] [address] Neurology 03/20/[address] [address] Neurology Neurology 06/07/22 documented as of this encounter
--- OUTSIDE RECORDS SUMMARY | 2024-10-07 15:42 | XMS_ITS | Encounter Summary ---
Author Organization [facility] Address [address] [place] [address] Care Team Providers Care Arranging Funeral Director Name Role Phone Adeline Guo MD Primary Care Provider [phone]- [phone] Curt Wiseman MD Primary Care Provider [phone] Encounter Details Date Type Department Care Team (Late st Contact Info) Description 03/13/2018 Orders Only [facility] Pre-Admission Testing [address] [facility] [address] [place] [address] Yamilex Langston NP Social History Tobacco Use [...] of this encounter Procedures * Due to [place] state law, this organization might not be [...] in this encounter Results * Due to [place] state law, this organization might not be [...] T RTG Final Result Performing Organization Address [facility] Co de Phone Number [facility] * PROTHROMBIN TIME (PT) (INR), BLOOD (03/13/2018 4:11 PM EDT) Pathologist [facility] INR 1.0 [facility] Comment: Reference Range ? 0.9-1.1 Moderate-intensity Warfarin Therapy 2.0-3.0 Higher-intensity Warfarin Therapy ?? 3.0-4.0 PT 10.7 9.0 - 11.5 sec [facility] Comment: For more information on this test, go to: http://education.AramisAuto/faq/[email or web address] 03/13/2018 4:11 PM EDT 03/13/2018 9:37 PM EDT Narrative Resulting Agency Comment [id number] Yamilex Langston BIBLE WORKER LAB SAME DAY RESULT Final Result Performing Organization Address [facility] de Phone Number [facility] [address] [place] [address] * HEPATIC FUNCTION PANEL (ALT,AST,ALK PH,BILI'S,TP,ALB) (03/13/2018 4:11 PM EDT) Pathologist [facility] Protein Total (Serum) 6.7 6.1 - 8.1 [...] 9:37 PM EDT Narrative Resulting Agency Comment [id number] us Yamilex Langston BIBLE WORK[facility] LABORAT[facility] Final Res ult [facility] [address] [place] [address] * CBC INCLUDES DIFFERENTIAL AND PLATELET COUNT [...] 9:37 PM EDT Narrative Resulting Agency Comment [id number] us Yamilex Langston BIBLE WORKER LAB SAME DAY RESULT Final Result [facility] [address] [place] [address] * BASIC METABOLIC PANEL WITH (GFR) (03/13/2018 4:11 PM EDT) Glucose 98 65 - 99 mg/dL [facility] Comment:Fasting reference in terval Urea Nitrogen Blood (BUN) 20 7 - 25 mg/dL [facility] Creatinine 1.05 0.70 - 1.25 mg/dL [facility] Comment: For patients >49 years of age, the reference limit for Creatinine is approximately 13% higher for people identified as -Icelandic. GFR 74 > OR = 60 mL/min/1 [...] needs for GFR calculation. Resulting Agency Comment [id number] Yamilex Langston BIBLE WORK[facility] LABORAT[facility] Final Res ult Performing Organization Address City/State/[facility] Co de Phone Number [facility] [address] [place] [address] documented in this encounter Visit Diagnoses Diagnosis Preop examination Preoperative examination, unspecified Gastroesophageal reflux disease, esophagitis presence not specified Hyperlipidemia, unspecified hyperlipidemia type Hypertension, unspecified type Benign prostatic hyperplasia, unspecified whether lower urinary tract symptoms present Mood disorder Unspecified episodic mood disorder RLS (restless legs syndrome) Restless legs syndrome (RLS) documented in this encounter Care Teams Arranging Funeral Director Relationship Specialty Start Date End Date Adeline Guo MD [address] [address] PCP - General Internal Medicine 11/30/17 02/09/21 Curt Wiseman MD [address] [address] PCP - General Family Medicine 02/10/21 documented as of this encounter
--- OUTSIDE RECORDS SUMMARY | 2024-10-07 15:42 | XMS_ITS | Encounter Summary ---
Author Organization [facility] Address [address] [place] [address] Care Team Providers Care Dispatch Associate Name Role Phone Adeline Guo MD Primary Care Provider [phone]- [phone] Feliciano Evans MD Unavailable Yara Harding MD Unavailable [phone] Encounter Details Date Type Department Care Team ([facility] Contact Info) Description 05/31/2022 Scanned Document [facility] Neurosurgery [address] [address] Monroe Choi MD 85 [facility] [place] [facility] Jose [address] [place] [phone] Social History Tobacco Use Types Packs/Day Years [...] Upcoming Encounters Date Type Department Care Team ([facility] Contact Info) Description 10/14/2024 1:00 PM EDT Consult [facility] Neurology [place] 35 [facility] [address] [place] [address] Suman Dudlye MD 35 [facility] 6 [place] [address] 10/16/2024 3:50 PM EDT Office Visit [facility] Neurology [place] 35 [facility] [address] [place] [address] Nehemias Hussein APRN [address] [address] documented as of this encounter Visit Diagnoses Not on filedocumented in this encounter Care Teams Dispatch Associate Relationship Specialty Start Date End Date Adeline Guo MD [address] [place] [address] PCP - General Internal Medicine 03/10/20 Feliciano Evans MD [address] [place] [address] Referring Provider 10/28/20 Yara Harding MD [address] [place] [address] Neurology 03/20/[address] [address] Neurology Neurology 06/07/22 documented as of this encounter
--- OUTSIDE RECORDS SUMMARY | 2024-10-07 15:42 | XMS_ITS | Encounter Summary ---
Author Organization [facility] Address [address] [place] [address] Care Team Providers Care Shower Doors And Panels Fabricator Name Role Phone Pcp, No Primary Care Provider Adeline Moe MD Primary Care Provider [phone]- [phone] Feliciano Evans MD Unavailable Yara Harding MD Unavailable [phone] Encounter Details Date Type Department Care Team (Late st Contact Info) Description 02/25/2020 Scanned Document [facility] Neurosurgery [place] [address] [phone] Monroe Choi MD [address] [address] Social History Tobacco Use Types Packs/Day Years [...] Info) Description 10/14/2024 1:00 PM EDT Consult [facility] Neurology [address] [address] Suman Dudley MD [address] [place] [address] 10/16/2024 3:50 PM EDT Office Visit [facility] Neurology [place] 35 [facility] [address] [place] [address] Nehemias Hussein, RAFAEL 35 [facility] [address] [place] [address] documented as of this encounter Visit Diagnoses Not on filedocumented in this encounter Care Teams Shower Doors And Panels Fabricator Relationship Specialty Start Date End Date Pcp, No [address] [place] [address] PCP - General 11/26/18 03/09/20 Adeline Guo MD [address] [place] [address] PCP - General Internal Medicine 03/10/20 Feliciano Evans MD [address] [place] [address] Referring Provider 10/28/20 Yara Harding MD [address] [place] [address] Neurology 03/20/[address] [place] [address] [address] Neurology Neurology 06/07/22 documented as of this encounter
--- OUTSIDE RECORDS SUMMARY | 2024-10-07 15:42 | XMS_ITS | Encounter Summary ---
Author Organization [employer] Address [address] [place] [address] 7t [place] [address] Care Team Providers Care Saddle Cutter Name Role Phone Unavailable Primary Care Provider Unavailabl e Reason for Visit * Reason Onset Date Comments instructions 12/28/2022 Dental Pain 12/28/2022 Encounter Details Date Type Department Care Team (Late st Contact Info) Description 12/28/2022 Telephone [facility] ADULT DENTAL [address] [place] [address] Alex Burns DMD [address] [place] [address] instructions; Dental Pain Social History Tobacco Use [...] Description 10/23/2024 3:15 PM EDT Office Visit [facility] ADULT DENTAL [address] [place] [address] Alex Burns, DMD [address] [place] [address] documented as of this encounter Visit Diagnoses Not on filedocumented in this encounter
--- OUTSIDE RECORDS SUMMARY | 2024-10-07 15:42 | XMS_ITS | Encounter Summary ---
Author Organization [facility] Address [address] [place] [address] Care Team Providers Care Electronic Gluing Machine Operator Name Role Phone Adeline Guo MD Primary Care Provider [phone]- [phone] Feliciano Evans MD Unavailable Yara Harding MD Unavailable [phone] Encounter Details Date Type Department Care Team ([facility] Contact Info) Description 05/15/2020 Scanned Document [facility] Neurosurgery [address] 5 [place] [phone] Marcelino Steen MD [address] [place] [address] Social History Tobacco Use Types Packs/Day [...] Upcoming Encounters Date Type Department Care Team ([facility] Contact Info) Description 10/14/2024 1:00 PM EDT Consult [facility] Neurology [address] 6 [place] [address] Suman Dudley MD 35 [facility] 6 [place] [address] 10/16/2024 3:50 PM EDT Office Visit [facility] Neurology [place] 35 [facility] 6 [place] [address] Nehemias Hussein APRN 35 [facility] 6 [place] [address] documented as of this encounter Visit Diagnoses Not on filedocumented in this encounter Care Teams Electronic Gluing Machine Operator Relationship Specialty Start Date End Date Adeline Guo MD [address] [place] [address] PCP - General Internal Medicine 03/10/20 Feliciano Evans MD [address] [place] [address] Referring Provider 10/28/20 Yara Harding MD [address] [place] [address] Neurology 03/20/[address] [address] Neurology Neurology 06/07/22 documented as of this encounter
--- OUTSIDE RECORDS SUMMARY | 2024-10-07 15:42 | XMS_ITS | Encounter Summary ---
Author Organization [facility] Address [address] [place] [address] 7t [place] [address] Care Team Providers Care Supplies Packer Name Role Phone Unavailable Primary Care Provider Unavailabl e Encounter Details Date Type Department Care Team (Latest Contact Info) Description 10/13/2021 Abstract [facility] CONVERSIONS Dental, Provider, DDS Social History [...] Description 10/23/2024 3:15 PM EDT Office Visit [facility] ADULT DENTAL [address] [place] [address] Alex Burns, JANAK [address] [place] [address] documented as of this encounter Visit Diagnoses Not on filedocumented in this encounter
--- OUTSIDE RECORDS SUMMARY | 2024-10-07 15:42 | XMS_ITS | Encounter Summary ---
Author Organization [facility] Address [address] [place] [address] Care Team Providers Care Biomaterials Engineer Name Role Phone Adeline Guo MD Primary Care Provider [phone] Feliciano Evans MD Unavailable Yara Harding MD Unavailable [phone] Encounter Details Date Type Department Care Team ([facility] Contact Info) Description 04/08/2020 Scanned Document [facility] Neurosurgery [address] [phone] Monroe Choi MD [address] [place], [place] [phone] Social History Tobacco Use Types Packs/Day Years [...] Info) Description 10/14/2024 1:00 PM EDT Consult [facility] Neurology [address] [place] [address] Suman Dudley MD [address] [address] 10/16/2024 3:50 PM EDT Office Visit [facility] Neurology [place] [address] [address] Nehemias Hussein APRN [address] [address] documented as of this encounter Visit Diagnoses Not on filedocumented in this encounter Care Teams Biomaterials Engineer Relationship Specialty Start Date End Date Adeline Guo MD [address] [place] [address] PCP - General Internal Medicine 03/10/20 Feliciano Evans MD [address] [place] [address] Referring Provider 10/28/20 Yara Harding MD [address] [place] [address] Neurology 03/20/[address] [address] Neurology Neurology 06/07/22 documented as of this encounter
--- OUTSIDE RECORDS SUMMARY | 2024-10-07 15:42 | XMS_ITS | Encounter Summary ---
Author Organization [facility] Address [address] [place] [address] Care Team Providers Care Wet Trimmer Name Role Phone Adeline Guo MD Primary Care Provider [phone]- [phone] Feliciano Evans MD Unavailable Yara Harding MD Unavailable [phone] Encounter Details Date Type Department Care Team ([facility] Contact Info) Description 10/30/2020 Scanned Document [facility] Neurology [address] [place] [address] Angelica Zuluaga, [address] [place] [address] Social History Tobacco Use Types Packs/Day Years [...] Type Department Care Team ([facility] Contact Info) Description 10/14/2024 1:00 PM EDT Consult [facility] Neurology [place] 35 [facility] [address] [place] [address] Suman Dudley MD 35 [facility] 6 [place] [address] 10/16/2024 3:50 PM EDT Office Visit [facility] Neurology [place] 35 [facility] 6 [place] [address] Nehemias Hussein APRN [address] [address] documented as of this encounter Visit Diagnoses Not on filedocumented in this encounter Care Teams Wet Trimmer Relationship Specialty Start Date End Date Adeline Guo MD [address] [place] [address] PCP - General Internal Medicine 03/10/20 Feliciano Evans MD [address] [place] [address] Referring Provider 10/28/20 Yara Harding MD [address] [place] [address] Neurology 03/20/[address] [address] Neurology Neurology 06/07/22 documented as of this encounter
--- OUTSIDE RECORDS SUMMARY | 2024-10-07 15:42 | XMS_ITS | Encounter Summary ---
Author Organization [facility] Address [address] [place] [address] Care Team Providers Care Surgical Dental Assistant Name Role Phone Adeline Guo MD Primary Care Provider [phone] Feliciano Evans MD Unavailable Yara Harding MD Unavailable [phone] Encounter Details Date Type Department Care Team ([facility] Contact Info) Description 07/19/2022 Telephone [facility] Neurology [address] [place] [address] Yara Harding MD [facility] [address] [place] [address] Social History Tobacco Use Types Packs/Day Years [...] Upcoming Encounters Date Type Department Care Team ([facility] Contact Info) Description 10/14/2024 1:00 PM EDT [facility] Neurology [place] 35 [facility] 6 [place] [address] Suman Dudley MD 35 [facility] 6 [place] [address] 10/16/2024 3:50 PM EDT [facility]rology [place] 35 [facility] 6 [place] [address] Nehemias Hussein APRN [address] [address] documented as of this encounter Visit Diagnoses Not on filedocumented in this encounter Care Teams Surgical Dental Assistant Relationship Specialty Start Date End Date Adeline Guo MD [address] [place] [address] PCP - General Internal Medicine 03/10/20 Feliciano Evans MD [address] [place] [address] Referring Provider 10/28/20 Yara Harding MD [address] [place] [address] Neurology 03/20/[address] [address] Neurology Neurology 06/07/22 documented as of this encounter
--- OUTSIDE RECORDS SUMMARY | 2024-10-07 15:42 | XMS_ITS | Encounter Summary ---
Author Organization Formerly [facility], [facility] Address [address] [place] [address] 7t [place] [address] Care Team Providers Care Camp Housekeeper Name Role Phone Unavailable Primary Care Provider Unavailabl e Encounter Details Date Type Department Care Team (Late st Contact Info) Description 03/18/2024 Telephone [facility] ADULT DENTAL [address] [place] [address] AriadnaSamuelDipti [address] [place] [address] Social History Tobacco Use Types Packs/Day Years [...] Description 10/23/2024 3:15 PM EDT Office Visit [facility] ADULT DENTAL [address] [place] [address] Alex Burns, DMD [address] [place] [address] documented as of this encounter Visit Diagnoses Not on filedocumented in this encounter
--- OUTSIDE RECORDS SUMMARY | 2024-10-07 15:42 | XMS_ITS | Encounter Summary ---
Author Organization Formerly [facility] Address [address] [place] [address] Care Team Providers Care High Frequency Mill Operator Name Role Phone Adeline Guo MD Primary Care Provider [phone]- [phone] Feliciano Evans MD Unavailable Yara Harding MD Unavailable [phone] Encounter Details Date Type Department Care Team (Late st Contact Info) Description 10/03/2024 Telephone [facility] Neurology [address] [phone] Suman Dudley MD [address] [place] [address] Social History Tobacco Use Types Packs/Day Years [...] encounter Miscellaneous Notes * Telephone Encounter - Ember Torres RN - 10/03/2024 1:05 PM EST Called Bj and relayed message from provider. He verbalized understanding. * Telephone Encounter - Ember Torres RN - 10/03/2024 11:53 AM EST Ana Cristina called in regarding Bj. He is complaining about not feeling well. She asked we call him directly [phone]. Called Bj to discuss. He says that he feels like he is in a fog, almost like he has a buzz from a little bit too much alcohol. He states that he is having difficulty typing things out. An example he was going to try typing out fell but typed out fail and was staring it and couldn't figure out what was wrong with it. He is having a difficult time telling what dayit is. Speech is a little slurred. He says that it's been like this for about a week. He thinks that it might be from trazodone (50 mg) [facility] at [facility]time around midnight. He started taking 1/2 tablet at first, and then increased because it wasn't helping him with his sleep. It was not lasting long enough on the 25 mg, but he does report that he felt this buzz at that time aswell. He is having night terrors that he is in combat in [place]. He has been on the trazodone in the past, doesn't recall having any issues like this. He has been on this for about 4 days now. He had only been getting about 4 hours of sleep prior to starting the medication. He has had a lot of family stressors in his family. His thinks that he is just exhausted. Any recommendations. He saysthat he doesn't even feel safe to drive. He has taken tylenol pm to help him sleep in the past, andmelatonin. His psychiatrist Dr Curt Wiseman was the prescriber. He is looking for further recommendations. documented in this encounter Plan of Treatment Upcoming Encounters Date Type Department Care Team (Late st Contact Info) Description 10/14/2024 1:00 PM EDT Consult [facility] Neurology [address] [place] [phone] Suman Dudley MD [address] [address] 10/16/2024 3:50 PM EDT Office Visit [facility] Neurology [place] 35 [facility] 6 [place] [address] Nehemias Hussein, RAFAEL [address] [address] documented as of this encounter Visit Diagnoses Not on filedocumented in this encounter Care Teams High Frequency Mill Operator Relationship Specialty Start Date End Date Adeline Guo MD [address] [place] [address] PCP - General Internal Medicine 03/10/20 Feliciano Evans MD [address] [place] [address] Referring Provider 10/28/20 Yara Harding MD [address] [place] [address] Neurology 03/20/23 Austin Sethi [address] [place] [address] Neurology Neurology 06/07/22 documented as of this encounter
--- OUTSIDE RECORDS SUMMARY | 2024-10-07 15:42 | XMS_ITS | Encounter Summary ---
Author Organization [employer] [facility] Address [address] [place] [address] 7t [place] [address] Care Team Providers Care City Council Member Name Role Phone Unavailable Primary Care Provider Unavailabl e Reason for Visit * Reason Onset Date Comments medication pre med 07/17/2023 Encounter Details Date Type Department Care Team (Late st Contact Info) Description 07/17/2023 Telephone [facility] ADULT DENTAL [address] [place] [address] Art Poe DDS [address] [place] [address] medication pre med Social History Tobacco Use [...] Description 10/23/2024 3:15 PM EDT Office Visit [facility] ADULT DENTAL [address] [place], [place] [phone] Alex Burns, JANAK [address] [place], [place] [phone] documented as of this encounter Visit Diagnoses Not on filedocumented in this encounter
--- OUTSIDE RECORDS SUMMARY | 2024-10-07 15:42 | XMS_ITS | Encounter Summary ---
Author Organization [facility] Address [address] [place] [address] Care Team Providers Care Lithopress Operator Name Role Phone Curt Wiseman MD Primary Care Provider [phone] Reason for Visit * Reason Comments Appointment Encounter Details Date Type Department Care Team ([facility] st Contact Info) Description 04/16/2021 Telephone [facility] Neurology [address] [address] Austin Sethi MD 123 [facility] RADHA [address] [place] [address] Appointment Social History Tobacco Use Types Packs/Day [...] Phone 05/03/21 3:30 PM Austin Sethi MD [facility] Neurology [address] * Telephone Encounter - [...] Phone 04/20/21 2:15 PM Austin Sethi MD [facility] Neurology [address] * Telephone Encounter - [...] on filedocumented in this encounter Care Teams Lithopress Operator Relationship Specialty Start Date End Date Curt Wiseman MD [address] [address] PCP - General Family Medicine 02/10/21 documented as of this encounter
--- OUTSIDE RECORDS SUMMARY | 2024-10-07 15:42 | XMS_ITS | Clinical Summary ---
Author Organization [facility] Address [address] [place] [address] Phone Care Team Providers Care Business Operations Manager Name Role Phone Curt Wiseman MD Primary Care Provider Allergies No known active allergies Medications linaCLOtide (Linzess) 72 mcg capsuleIndicati ons:Constipatio n, unspecified constipation type Take 1 capsule (72 mcg total) by mouth 1 (one) time each day before breakfast. 90 capsule 3 06/28/20 24 Active Additional Information Patient not taking.Reported on 07/22/2024 aspirin 81 mg EC tablet Take 1 tablet (81 mg total) by mouth 1 (one) time each day. 10/17/19 19 Active blood-gluc,BP meter,adult cuff device 1 kit by Not Applicable route 1 (one) time. 10/22/19 23 Active UNABLE TO FIND Inhale by mouth at bedtime. CPAP. Reliable resp 6-14 Active diphenhydrAMINE -acetaminophen (TYLENOL PM) 25-500 mg per tablet Take 2 tablets by mouth at bedtime as needed. Active docusate sodium (COLACE) 100 mg tablet Take by mouth every other day. Active finasteride (PROSCAR) 5 mg tablet Take 1 tablet (5 mg total) by mouth 1 (one) time each day. 09/21/19 21 Active fluticasone propionate (FLONASE) 50 mcg/actuation nasal spray Administer 1 spray into each nostril 1 (one) time each day in the morning. 12/19/19 21 Active lamoTRIgine (LaMICtal) 200 mg tablet Take 1 tablet (200 mg total) by mouth at bedtime. with 25 mg tablet Active lamoTRIgine (LaMICtal) 25 mg tablet Take 1 tablet (25 mg total) by mouth at bedtime. With a 200mg tab (total 225mg) Active mv-min/folic/K1 /lycopen/lutein (CENTRUM SILVER MEN ORAL) Take by mouth [...] 8 (eight) hours if needed for nausea. 05/19/20 20 Active primidone (MYSOLINE) 50 mg tablet Take 3 tablets (150 mg total) by mouth at bedtime. Active sennosides/docu sate sodium (SENNA PLUS ORAL) Take by mouth 1 (one) time each day. Active tadalafiL (CIALIS) 5 mg tablet Take 1 tablet (5 mg total) by mouth 1 (one) time each day. Active traZODone (DESYREL) 50 mg tablet Take 1-2 tablets (50-100 mg total) by mouth at bedtime. 01/26/20 21 Active amLODIPine (NORVASC) 5 mg tabletIndicatio ns:Essential hypertension Take 1 tablet (5 mg total) by mouth 1 (one) time each day. 90 each 3 07/22/20 24 025 Active atorvastatin (LIPITOR) 80 mg tablet TAKE 1 TABLET BY MOUTH EVERY DAY 90 tablet 07/25/20 24 Active losartan-hydroC HLOROthiazide (HYZAAR) 100-12.5 mg per tablet TAKE 1 TABLET BY MOUTH EVERY DAY 90 tablet 1 08/09/19 25 Active ezetimibe (ZETIA) 10 mg tablet TAKE 1 TABLET BY MOUTH EVERY DAY 90 tablet 1 08/19/19 25 Active metoprolol succinate (TOPROL-XL) 25 mg 24 hr tablet TAKE 1 TABLET BY MOUTH ONCE A DAY WITH 50 MG TOTAL 75 MG. DO NOT CRUSH OR CHEW. 90 tablet 2 08/20/19 25 Active amLODIPine (NORVASC) 5 mg tablet Take 1 tablet (5 mg total) by mouth 1 (one) time each day. 90 each 3 09/19/19 25 Active metoprolol succinate (TOPROL-XL) 50 mg 24 hr tablet TAKE 1 TABLET BY MOUTH EVERY DAY WITH 25 MG TABS DO NOT CRUSH CHEW 90 tablet 10/08/19 25 Active metoprolol succinate (Toprol XL) 50 mg 24 hr tablet Take 1 tablet (50 mg total) by mouth 1 (one) time each day. Take in addition to 25 mg tablet for total daily dose 75 mg. Do not crush or chew. 90 each 06/10/20 24 025 Discontinued Active Problems Problem Noted Date Diagnosed Date [...] sleep apnea hypopnea, severe 016 Overview (07/08/2024): [facility] Home Polysomnogram: Date 12/08/2015; AHI 8, Unclassified apneas 0; Obstructive apneas 0; Central apneas 0; Mixed apneas 0; hypopneas 20; average oxygen saturation 94% (lowest 87% without saturations <88% for 5% or more of study) [facility] Polysomnogram treatment study. Date 02/28/2018. SE 84 % SM 86 %; spent 16 % of the study in REM. On CPAP @ 8; RDI 0.7 (AHI 0.3), Central apneas 0; Obstructive apneas 0; Mixed apneas 0; hypopneas 1; RERAs 1; and, average oxygen saturation was 93%. For the entire study, PLMs ~20. [facility] Home Polysomnogram: Date 03/15/2018; AHI 19, Unclassified apneas 0; Obstructive apneas 0; Central apneas 1; Mixed apneas 0; hypopneas 22; average oxygen saturation 94% (lowest 88% without saturations <88% for 5% or more of study) - Obstructive Sleep Apnea - moderate; mostly hypopneaa; without sleep related hypoventilation by 2018 home polysomnogram. Assessment & Plan (07/22/2024 6:37 [...] hyperplasia 05/21/2014 Coronary artery disease invo lving [place] coronary artery of [place] heart without angina pectoris 05/21/2014 Overview (07/08/2024): [...] 1:45 PM EST Office Visit Orthopedic Surgery [facility] 175 [facility] [address] [place] [phone] Michelle Watson PA Left arm pain (Primary Dx) 08/21/2024 Telephone Orthopedic Surgery [facility] 250 175 [facility] [address] [place] [phone] Michelle Watson PA 07/26/2024 3:00 PM EST Consult Orthopedic Surgery [facility] 175 [facility] [address] [place] [phone] Michelle Watson PA Paresthesias in left hand (Primary Dx) 07/23/2024 Telephone [facility] Cardiology [facility] [address] [place] [address] Thiago Montoya MD Medication 07/22/2024 1:00 PM EST Office Visit [facility] [place] [address] Thiago Montoya MD Essential hypertension (Primary Dx); Coronary artery disease involving [place] coronary artery of [place] heart without angina pectoris; Obstructive sleep apnea hypopnea, severe; Traumatic brain injury, without loss of consciousness, subsequent encounter; Lumbar disc herniation; Pure hypercholesterolemia from Last 3 Months Immunizations Name Administration Dates Next Due Influenza trivalent, 0.5mL (Fluad) 65yo and olde r 05/24/2019 Influenza trivalent, 0.5mL, preservative free (Fluarix; FluLaval; Fluzone) ages 6mo and older (Afluria) 3 years and older 07/09/2018,06/04/2014 Pfizer SARS-CoV-2 COVID-19, mRNA, LNP-S, preservative free 10/08/2020,09/17/2020 [...] patient OTHER SURGICAL HISTORY 07/12/2019 Right PROCEDURE: [place] ARTHROPLASTY GLENOHUMERAL JOINT TOTAL SHOULDER Medical History [...] dysfunction 05/21/2014 DX:Erectile dysfunction IgA deficiency, 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, selective ([facility]) Impaired fasting glucose 06/02/2014 DX:Impa ired fasting glucose Depression 06/02/2014 DX:Depression Anxiety 06/02/2014 DX:Anxiety TBI (traumatic brain injury) ([facility]) 4 DX:TBI (traumatic brain injury) ([facility]) PTSD (post-traumatic stress disorder) 06/02/2014 DX:PTSD (post-traumatic [...] Description 11/05/2024 4:00 PM EDT Appointment [facility] Neurodiagnostic [address] [place] [phone] Health Maintenance Due Date Last Done [...] EST Essential hypertension Coronary artery disease involving [place] coronary artery of [place] heart without angina pectoris Obstructive sleep apnea [...] 40 mg/dL [facility] 1 LDL Chol Calc ([facility]) 59 0 - 99 mg/dL [facility] 1 Blood Venous blood specimen / Unknown 08/19/2024 10:07 AM EST 08/19/2024 Narrative [facility] 1 - 08/20/2024 3:06 AM EST Performed at: ??01 - [facility] [address] ??[id number] Sports Specialist: Annette Meier MD, Phone: ??[phone] us Thiago Montoya MD LAB BLOOD ORDERABLES [...] GEM[facility] QTc 404 ms GEMUSE P Wave [place] 44 degrees GEMUSE R [place] 35 degrees GEMUSE T [place] 58 degrees GEMUSE ECG Interpretation Normal sinus rhythm Normal ECG When compared with ECG of 05-DEC-2013 20:16, No significant change was found Confirmed by THIAGO MONTOYA ([id number]) on 07/22/2024 1:18:30 PM [facility] 07/22/2024 1:11 PM EST 07/22/2024 1:18 PM EST Thiago Montoya MD ECG ORDERABLES Final Result [facility] * Annual BMP Blood Test (10/22/2020) Annual BMP Blood Test abstracted us Historical Provider HEALTH MAINTENANCE Final Result from Last 3 Months or Most Recently Relevant to Health Maintenance Insurance [employer] Care Teams Business Operations Manager Relationship Specialty Start Date End Date Curt Wiseman MD [address] [place] [address] PCP - General Family Medicine 07/22/24
--- OUTSIDE RECORDS SUMMARY | 2024-10-07 15:42 | XMS_ITS | Encounter Summary ---
Author Organization [facility] Address [address] [place] [address] Care Team Providers Care Wood Patternmaker Apprentice Name Role Phone Adeline Guo MD Primary Care Provider [phone]- [phone] Feliciano Evans MD Unavailable Yara Harding MD Unavailable [phone] Encounter Details Date Type Department Care Team ([facility] Contact Info) Description 04/07/2020 Scanned Document [facility] Neurosurgery [address] [phone] Monroe Choi MD [address] [place] [phone] Social History Tobacco Use Types Packs/Day Years [...] Upcoming Encounters Date Type Department Care Team ([facility] Contact Info) Description 10/14/2024 1:00 PM EDT Consult [facility] Neurology [address] [phone] Suman Dudley MD 35 [facility] 6 [place] [address] 10/16/2024 3:50 PM EDT Office Visit [facility] Neurology [place] 35 [facility] [place] 6 [place] [phone] Nehemias Hussein APRN 35 [facility] 6 [place] [address] documented as of this encounter Visit Diagnoses Not on filedocumented in this encounter Care Teams Wood Patternmaker Apprentice Relationship Specialty Start Date End Date Adeline Guo MD [address] [place] [address] PCP - General Internal Medicine 03/10/20 Feliciano Evans MD [address] [place] [address] Referring Provider 10/28/20 Yara Harding MD [address] [place] [address] Neurology 03/20/[address] [address] Neurology Neurology 06/07/22 documented as of this encounter
--- OUTSIDE RECORDS SUMMARY | 2024-10-07 15:42 | XMS_ITS | Encounter Summary ---
Author Organization [facility] Address [address] [place] [address] 7t [place] [address] Care Team Providers Care Wood Drilling Machine Operator Name Role Phone Unavailable Primary Care Provider Unavailabl e Encounter Details Date Type Department Care Team (Latest Contact Info) Description 04/13/2022 Abstract [facility] CONVERSIONS Dental, Provider, DDS Social History Tobacco [...] 3:15 PM EDT Office Visit [facility] ADULT DENTAL [address] [place] [address] Alex Burns, JANAK [address] [place] [address] documented as of this encounter Visit Diagnoses Not on filedocumented in this encounter
--- OUTSIDE RECORDS SUMMARY | 2024-10-07 15:42 | XMS_ITS | Encounter Summary ---
Author Organization [facility] Address [address] [place] [address] Care Team Providers Care Photovoltaic Solar Cell Designer Name Role Phone Adeline Guo MD Primary Care Provider [phone] Feliciano Evans MD Unavailable Yara Harding MD Unavailable Reason for Referral * Surgical (Routine) - Closed Specialty Diagnoses / Procedures Referred By Tamika hurt Referred To Contact Anesthesiology Diagnoses Benign essential tremor Monroe Choi MD [address] [place] [address] [address] [place] [phone] Referral ID Status Reason Start Date Expiration Date V isits Requested Visits Authorized [id number] Closed Specialty Services Required 11/14/2020 11/15/2021 1 1 Encounter Details Date Type Department Care Team (Late st Contact Info) Description 10/26/[address] [facility] Neurosurgery [place] 35 [facility] [address] [place] [phone] Emilee Brewer, SOANLI 35 [place] [address] Benign essential tremor (Primary Dx) Social History [...] Info) Description 10/14/2024 1:[address] [facility] Neurology [address] [phone] Suman Dudley MD [address] [place] [address] 10/16/2024 3:50 PM EDT Office Visit [facility] Neurology [address] [phone] Nehemias Hussein APRN [address] [place] [address] Scheduled Referrals Name Type Priority Associated Diagnoses Order Schedule Ambulatory referral to Anesthesiology Outpatient Referral Routine Benign essential tremor Ordered: 11/14/2020 documented as of this encounter Visit Diagnoses Diagnosis Benign essential tremor- Primary Essential and other specified forms of tremor documented in this encounter Care Teams Photovoltaic Solar Cell Designer Relationship Specialty Start Date End Date Adeline Guo MD [address] [place] [address] PCP - General Internal Medicine 03/10/20 Feliciano Evans MD [address] [place] [address],[address] [address] Referring Provider 10/28/20 Yara Harding MD [address] [place] [address] [place] [address] Neurology 03/20/23 Austin Sethi [address] [place] [address] Neurology Neurology 06/07/22 documented as of this encounter
== END 2024-10-07 14:16 | disposition home or self-care (01) ==
PROVIDERS: PCP Family Medicine; Visit Provider Internal Medicine
DX: M54.16 Radiculopathy, lumbar region (principal); G62.9 Polyneuropathy, unspecified; M25.561 Pain in right knee; G89.29 Other chronic pain
CPT/HCPCS: 99214

== ENCOUNTER → 2024-10-07 13:21 | Outpatient (BNVA) | payer MEDICARE, SELFPAY | PROVIDERS: PCP Family Medicine; Visit Provider Internal Medicine | DX: M54.16 Radiculopathy, lumbar region (principal); M25.561 Pain in right knee; G62.9 Polyneuropathy, unspecified; G89.29 Other chronic pain | CPT/HCPCS: 99212 ==

== ENCOUNTER 2024-11-12 13:24 | Outpatient (AMB) | payer MEDICARE, SELFPAY ==
[2024-11-12 13:43] VITALS: BMI 29.3
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
--- OUTSIDE RECORDS SUMMARY | 2024-11-12 16:19 | XMS_ITS | Clinical Summary ---
Author Organization [facility] Address [address] [place] [address] Care Team Providers Care Property Maintenance Technician Name Role Phone Adeline Locke Primary [...] Type Department Care Team Description 09/13/2024 Telephone [facility] Sports Medicine [address] [place], [place] [id number] Telephone Intake, Staff PAC Patient Request Call Back_Luke (Pt would like call back in regards hospice nurse used during surgery back in 2019 with [...] 2024 04/22/2022, 11/11/2021, 03/20/2021, Additional history exists Alcohol/Substance Use Screening 08/07/2024 Depression Screening and Follow-Up 08/07/2024 Health Care Proxy Review 08/07/2024 Social Drivers of Health Annual Screening 08/07/2024 Influenza Vaccine (Season Ended) 2025 04/21/2021, 04/07/2020, 05/24/2019, Additional history exists RSV Vaccine (60+ years old and patients) (1 - 1-dose 75+ series) 2027 Zoster Vaccines Completed 11/25/2021, 05/07, 02/06/2012 Pneumococcal Vaccine: 50+ Years Completed 12/08/2021, 07/22/2011 Hepatitis B Vaccines Aged Out No long er eligible based on patient's age to complete this topic Medical Devices Implanted Type Area Raw Juice Weigher Device Identifier Shelf Expiration Date Model / Serial / Lot Baseplate Reverse Shoulder Prosthesis With P2 Coating 30mm - [id number] Implanted:Qty: 1 on 07/12/2019 by Andrew Butler MD at [facility] Implant [employer] 05/03/2025 [id number] / / [id number] Head Glenoid With Retaining Screw Hugo Shoulder Prosthesis Neutral 32mm - [id number] Implanted:Qty: 1 on 07/12/2019 by Andrew Butler MD at [facility] Implant [employer] 04/09/2025 508-32-101 / / [id number] Insert Socket Humeral Standard Hxe-Plus Rsp Sterile 12gte8lb - [id number] Implanted:Qty: 1 on 07/12/2019 by Anrdew Butler MD at [facility] Implant [employer] 05/31/2023 [id number] / / [id number] Stem Humeral Standard Reverse Shoulder Prosthesis [id number] - [id number] Implanted:Qty: 1 on 07/12/2019 by Andrew Butler MD at [facility] Implant [employer] 07/12/2024 530-10-108 / / [id number] Screw Locking Reverse Shoulder Prosthesis [id number] - [id number] Implanted:Qty: 1 on 07/12/2019 by Andrew Butler MD at [facility] Screw [employer] 03/24/2025 506-03-130 / / [id number] Screw Locking Bone Reverse Shoulder Prosthesis [id number] - [id number] Implanted:Qty: 1 on 07/12/2019 by Andrew Butler MD at [facility] Screw [employer] 04/19/2025 506-03-122 / / [id number] Screw Locking Reverse Shoulder Prosthesis [id number] - [id number] Implanted:Qty: 1 on 07/12/2019 by Andrew Butler MD at [facility] Screw [employer] 02/27/2025 506-03-130 / / [id number] Insurance [facility] Advance Directives * Full Code (Latest Code Status on File) Date Activated Date Inactivated Comments 07/12/2019 1:40 PM 07/13/2019 8:20 PM * Full Code Date Activated Date Inactivated Comments 07/12/2019 6:13 AM 07/12/2019 1:40 PM Care Teams Property Maintenance Technician Relationship Specialty Start Date End Date Adeline Locke PCP - General Pediatrics 11/14/17
--- OUTSIDE RECORDS SUMMARY | 2024-11-12 16:19 | XMS_ITS | Encounter Summary ---
Author Organization [facility] Address [address] [place] [address] Care Team Providers Care Drilling Superintendent Name Role Phone Adeline Guo MD Primary Care Provider [phone]- [phone] Feliciano Evans MD Unavailable Yara Harding MD Unavailable [phone] Curt Wiseman MD Primary Care Provider [phone]- [phone] Encounter Details Date Type Department Care Team ([facility] Contact Info) Description 05/20/2021 Scanned Document [facility] Neurosurgery [place] [address] [facility] [address] [place] [phone] Monroe Choi MD [address] [facility] [place] [address] [place] [address] [phone] Social History Tobacco Use Types Packs/Day Years [...] Upcoming Encounters Date Type Department Care Team ([facility] Contact Info) Description 12/09/2024 1:00 PM EDT Procedure visit [facility] Neurology [place] [address] [facility] [address] [place] [phone] Suman Dudley MD [address] [address] documented as of this encounter Visit Diagnoses Not on filedocumented in this encounter Care Teams Drilling Superintendent Relationship Specialty Start Date End Date Adeline Guo MD [address] [place] [address] PCP - General Internal Medicine 03/10/20 10/13/24 Curt Wiseman MD [address] [place] [address] Dr Garcia [address] [place] [address] PCP - General Family Medicine 10/14/24 Feliciano Evans MD [address] [place] [address] Referring Provider 10/28/20 Yara Harding MD [address] [place] [address] Neurology 03/20/23 Austin Sethi [address] [place] [address] Neurology Neurology 06/07/22 documented as of this encounter
--- OUTSIDE RECORDS SUMMARY | 2024-11-12 16:19 | XMS_ITS | Encounter Summary ---
Author Organization [facility] Address [address] [place] [address] Care Team Providers Care Force Dispatcher Name Role Phone Adeline Guo MD Primary Care Provider [phone]- [phone] Feliciano Evans MD Unavailable Yara Harding MD Unavailable [phone] Curt Wiseman MD Primary Care Provider [phone]- [phone] Encounter Details Date Type Department Care Team (Late Contact Info) Description 10/28/2021 Scanned Document [facility] Neurosurgery [address] [place] [address] Monroe Choi MD [address] [place] [address] Social History Tobacco Use Types Packs/Day Years [...] Department Care Team (Late Contact Info) Description 12/09/2024 1:00 PM EDT Procedure visit [facility] Neurology [address] [place] [address] Suman Dudley MD 35 [facility] [address] [place] [address] documented as of this encounter Visit Diagnoses Not on filedocumented in this encounter Care Teams Force Dispatcher Relationship Specialty Start Date End Date Adeline Guo MD [address] [place] [address] PCP - General Internal Medicine 03/10/20 10/13/24 Curt Wiseman MD [address] [place] [address] [place] [address] PCP - General Family Medicine 10/14/24 Feliciano Evans MD [address] [place] [address] Referring Provider 10/28/20 Yara Harding MD [address] [place] [address] Neurology 03/20/23 Austin Sethi [address] [place] [address] Neurology Neurology 06/07/22 documented as of this encounter
--- OUTSIDE RECORDS SUMMARY | 2024-11-12 16:19 | XMS_ITS | Encounter Summary ---
Author Organization [facility] Address [address] [place] [address] Care Team Providers Care Dietetic Intern Name Role Phone Adeline Guo MD Primary Care Provider [phone]- [phone] Feliciano Evans MD Unavailable Yara Harding MD Unavailable [phone] Curt Wiseman MD Primary Care Provider [phone]- [phone] Encounter Details Date Type Department Care Team (Late Contact Info) Description 08/05/2020 Scanned Document [facility] Neurosurgery [address] [phone] Monroe Choi MD [address] [place] [phone] Social History Tobacco Use Types Packs/Day Years [...] Description 12/09/2024 1:00 PM EDT Procedure visit [facility] Neurology [address] [phone] Suman Dudley MD [address] [place] [address] documented as of this encounter Visit Diagnoses Not on filedocumented in this encounter Care Teams Dietetic Intern Relationship Specialty Start Date End Date Adeline Guo MD [address] [place] [address] PCP - General Internal Medicine 03/10/20 10/13/24 Curt Wiseman MD [address] [place] [address] Dr Garcia [facility] [place] [address] PCP - General Family Medicine 10/14/24 Feliciano Evasn MD [address] [place] [address] Referring Provider 10/28/20 Yara Harding MD [address] [place] [address] Neurology 03/20/[address] [address] Neurology Neurology 06/07/22 documented as of this encounter
--- OUTSIDE RECORDS SUMMARY | 2024-11-12 16:19 | XMS_ITS | Encounter Summary ---
Author Organization [facility] Address [address] [place] [address] Care Team Providers Care Dietitian Assistant Name Role Phone Adeline Guo MD Primary Care Provider [phone]- [phone] Feliciano Evans MD Unavailable Yara Harding MD Unavailable Curt Wiseman MD Primary Care Provider [phone]- [phone] Encounter Details Date Type Department Care Team ([facility] Contact Info) Description 05/10/2022 Scanned Document [facility] NEUROSURGERY SCAN Neurosurgery, Scan Social History Tobacco [...] Upcoming Encounters Date Type Department Care Team ([facility] Contact Info) Description 12/09/2024 1:00 PM EDT Procedure visit [facility] Neurology [address] [place] [phone] Suman Dudley MD [address] [place], [place] [address], [place] [address] documented as of this encounter Visit Diagnoses Not on filedocumented in this encounter Care Teams Dietitian Assistant Relationship Specialty Start Date End Date Adeline Guo MD [address] [place] [address] PCP - General Internal Medicine 03/10/20 10/13/24 Curt Wiseman MD [address] [place] [address] [address] [place] [address] PCP - General Family Medicine 10/14/24 Feliciano Evans MD [address] [place] [address] Referring Provider 10/28/20 Yara Harding MD [address] [place] [address] Neurology 03/20/[address] [phone] Neurology Neurology 06/07/22 documented as of this encounter
--- OUTSIDE RECORDS SUMMARY | 2024-11-12 16:19 | XMS_ITS | Encounter Summary ---
Author Organization [facility] Address [address] [place] [address] Care Team Providers Care Finance Clerk Name Role Phone Adeline Guo MD Primary Care Provider [phone]- [phone] Feliciano Evans MD Unavailable Yara Harding MD Unavailable [phone] Curt Wiseman MD Primary Care Provider [phone]- [phone] Encounter Details Date Type Department Care Team ([facility] Contact Info) Description 06/01/2022 Scanned Document [facility] Neurosurgery [address] [place] [phone] Neurosurgery, Scan Social History Tobacco Use [...] [place] [address] Contact Info) Description 12/09/2024 1:00 PM EDT Procedure visit [facility] Neurology [address] [place] [phone] Suman Dudley MD [address] [place] [address] [place] [address] documented as of this encounter Visit Diagnoses Not on filedocumented in this encounter Care Teams Finance Clerk Relationship Specialty Start Date End Date Adeline Guo MD [address] [place] [address] PCP - General Internal Medicine 03/10/20 10/13/24 Curt Wiseman MD [address] [place] [address] PCP - General Family Medicine 10/14/24 Feliciano Evans MD [address] [place] [address] Referring Provider 10/28/20 Yara Harding MD [address] [place] [address] Neurology 03/20/23 Austin Sethi [address] [place] [address] Neurology Neurology 06/07/22 documented as of this encounter
--- OUTSIDE RECORDS SUMMARY | 2024-11-12 16:19 | XMS_ITS | Encounter Summary ---
Author Organization [facility] Address [address] [place] [address] Care Team Providers Care Personal Health Coach Name Role Phone Adeline Guo MD Primary Care Provider [phone]- [phone] Feliciano Evans MD Unavailable Yara Harding MD Unavailable [phone] Curt Wiseman MD Primary Care Provider [phone]- [phone] Encounter Details Date Type Department Care Team ([facility] st Contact Info) Description 11/26/2020 Prep for Surgery [facility] [address] [facility] [address] [place] [address] Mariama Allred, EXERCISER HORSE [address] [place] [address] Social History Tobacco Use Types [...] Care Team (Late st Contact Info) Description 12/09/2024 1:00 PM EDT Procedure visit [facility] Neurology [place] [address] [facility] [address] [place] [phone] Suman Dudley MD [address] [address] documented as of this encounter Visit Diagnoses Not on filedocumented in this encounter Care Teams Personal Health Coach Relationship Specialty Start Date End Date Adeline Guo MD [address] [place] [address] PCP - General Internal Medicine 03/10/20 10/13/24 Curt Wiseman MD [address] [place] [address] [address] PCP - General Family Medicine 10/14/24 Feliciano Evans MD [address] [place] [address] Referring Provider 10/28/20 Yara Harding MD [address] [place] [address] Neurology 03/20/23 Austin Sethi [address] [place] [address] Neurology Neurology 06/07/22 documented as of this encounter
--- OUTSIDE RECORDS SUMMARY | 2024-11-12 16:19 | XMS_ITS | Encounter Summary ---
Author Organization [facility] Address [address] [place] [address] Care Team Providers Care Educational Adviser Name Role Phone Adeline Guo MD Primary Care Provider +1- [phone] Feliciano Evans MD Unavailable Yara Harding MD Unavailable [phone] Curt Wiseman MD Primary Care Provider +[phone]- [phone] Encounter Details Date Type Department Care Team (Late st Contact Info) Description 07/19/2024 Telephone [facility] Neurology [address] [phone] Suman Dudley MD [address] [place] [address] [phone] Social History Tobacco Use Types Packs/Day Years [...] Description 12/09/2024 1:00 PM EDT Procedure visit [facility] Neurology [address] [address] Suman Dudley MD [address] [place] [address] documented as of this encounter Visit Diagnoses Not on filedocumented in this encounter Care Teams Educational Adviser Relationship Specialty Start Date End Date Adeline Guo MD [address] [place] [address] PCP - General Internal Medicine 03/10/20 10/13/24 Curt Wiseman MD [address] [place] [address] Dr Garcia [facility] [place] [address] PCP - General Family Medicine 10/14/24 Feliciano Evans MD [address] [place] [address] Referring Provider 10/28/20 Yara Harding MD [address] [place] [address] Neurology 03/20/23 Austin Sethi [address] [place] [address] Neurology Neurology 06/07/22 documented as of this encounter
--- OUTSIDE RECORDS SUMMARY | 2024-11-12 16:19 | XMS_ITS | Encounter Summary ---
Author Organization [facility] Address [address] [place] [address] Care Team Providers Care Fagot Heater Name Role Phone Adeline Guo MD Primary Care Provider +1- [phone] Feliciano Evans MD Unavailable Yara Harding MD Unavailable [phone] Curt Wiseman MD Primary Care Provider +[phone]- [phone] Encounter Details Date Type Department Care Team (Late Contact Info) Description 04/07/2020 Scanned Document [facility] Neurosurgery [address] [place] [phone] Monroe Choi MD 85 [facility] [place] [address] [place] [address] [phone] Social History Tobacco Use Types Packs/Day Years [...] Upcoming Encounters Date Type Department Care Team ([facility] Contact Info) Description 12/09/2024 1:00 PM EDT Procedure visit [facility] Neurology [address] [facility] [address] [place] [address] Suman Dudley MD [address] [address] documented as of this encounter Visit Diagnoses Not on filedocumented in this encounter Care Teams Fagot Heater Relationship Specialty Start Date End Date Adeline Guo MD [address] [place] [address] PCP - General Internal Medicine 03/10/20 10/13/24 Curt Wiseman MD [address] [place] [address] PCP - General Family Medicine 10/14/24 Feliciano Evans MD [address] [place] [address] Referring Provider 10/28/20 Yara Harding MD [address] [place] [address] Neurology 03/20/[address] [address] Neurology Neurology 06/07/22 documented as of this encounter
--- OUTSIDE RECORDS SUMMARY | 2024-11-12 16:19 | XMS_ITS | Encounter Summary ---
Author Organization [facility] Address [address] [place] [address] Care Team Providers Care Station Usher Name Role Phone Adeline Guo MD Primary Care Provider +- [phone] Feliciano Evans MD Unavailable Yara Harding MD Unavailable [phone] Curt Wiseman MD Primary Care Provider +[phone]- [phone] Encounter Details Date Type Department Care Team ([facility] Contact Info) Description 06/18/2020 Scanned Document [facility] Neurosurgery [address] [place] [phone] Monroe Choi MD 85 [facility] [place] [address] [place] [address] [phone] Social History Tobacco Use Types Packs/Day Years [...] Upcoming Encounters Date Type Department Care Team ([facility] Contact Info) Description 12/09/2024 1:00 PM EDT Procedure visit [facility] Neurology [address]l [address] [place] [address] Suman Dudley MD [address] [address] documented as of this encounter Visit Diagnoses Not on filedocumented in this encounter Care Teams Station Usher Relationship Specialty Start Date End Date Adeline Guo MD [address] [place] [address] PCP - General Internal Medicine 03/10/20 10/13/24 Curt Wiseman MD [address] [place] [address] Dr Garcia [address] [place] [address] PCP - General Family Medicine 10/14/24 Feliciano Evans MD [address] [place] [address] Referring Provider 10/28/20 Yara Harding MD [address] [place] [address] Neurology 03/20/[address] [address] Neurology Neurology 06/07/22 documented as of this encounter
--- OUTSIDE RECORDS SUMMARY | 2024-11-12 16:19 | XMS_ITS | Encounter Summary ---
Author Organization [facility] Address [address] [place] [address] Care Team Providers Care Houseman Name Role Phone Pcp, No Primary Care Provider UnavailAdeline Lancaster MD Primary Care Provider +1- [phone] Feliciano Evans MD Unavailable Yara Harding MD Unavailable [phone] Curt Wiseman MD Primary Care Provider Encounter Details Date Type Department Care Team (Late st Contact Info) Description 02/25/2020 Scanned Document [facility] Neurosurgery [place] [address] [facility] [place] [address] [place] [phone] Monroe Choi MD [address] [address] Social History Tobacco Use Types Packs/Day Years [...] Description 12/09/2024 1:00 PM EDT Procedure visit [facility] Neurology [address] [phone] Suman Dudley MD [address] [place] [address] [place] [address] documented as of this encounter Visit Diagnoses Not on filedocumented in this encounter Care Teams Houseman Relationship Specialty Start Date End Date Pcp, No [address] [place] [address] PCP - General 11/26/18 03/09/20 Adeline Guo MD [address] [place] [address] PCP - General Internal Medicine 03/10/20 10/13/24 Curt Wiseman MD [address] [place] [address] PCP - General Family Medicine 10/14/24 Feliciano Evans MD [address] [place] [address] Referring Provider 10/28/20 Yara Harding MD [address] [place] [address] Neurology 03/20/23 Austin Sethi [address] [place] [address] Neurology Neurology 06/07/22 documented as of this encounter
--- OUTSIDE RECORDS SUMMARY | 2024-11-12 16:19 | XMS_ITS | Continuity of Care Document ---
Author Organization [facility] Address [address] [place] [address] Care Team Providers Care Dip Lube Operator Name Role Phone Curt Wiseman MD Primary Care Provider Encounters Date Type Department Care Team Description 10/14/2023 [facility] Neurology [address] [facility] [address] [place] [phone] Austin Sethi MD E-prescribing Refill Request 10/10/2023 Refill [facility] Neurology [address] [facility] [address] [place] [phone] Austin Sethi MD Refill Request 06/25/2023 Refill [facility] Neurology [address] [facility] [address] [place] [phone] Austin Sethi MD Med Change Request; Refill Request 05/22/2023 Refill [facility] Neurology [address] [facility] [address] [place] [address] Austin Sethi MD E-prescribing Refill Request 03/20/2023 Telephone [facility] Neurology [address] [facility] [address] [place] [address] Austin Sethi MD Medication Check 02/20/2023 Refill [facility] Neurology [address] [facility] [address] [place] [address] Austin Sethi MD E-prescribing Refill Request 01/10/2023 Refill [facility] Neurology [address] [facility] [address] [place] [address] Austin Sethi MD E-prescribing Refill Request 08/08/2022 Refill [facility] Neurology [address] [facility] [address] [place] [address] Austin Sethi MD E-prescribing Refill Request 07/25/2022 Telephone [facility] Neurology [address] [facility] [address] [place] [address] Austin Sethi MD Appointment 06/07/2022 4:30 PM EDT Office Visit [facility] Neurology [address] [facility] [address] [place] [address] Austin Sethi MD Essential tremor (Primary Dx) 05/23/2022 Refill [facility] Neurology [address] [facility] [address] [place] [address] Austin Sethi MD E-prescribing Refill Request 03/11/2022 Telephone [facility] Neurology [address] [facility] [address] [place] [address] Austin Sethi MD Follow Up 03/07/2022 8:15 AM EDT Office Visit [facility] Neurology [address] [facility] [address] [place] [address] Austin Sethi MD Essential tremor (Primary Dx) 02/22/2022 Telephone [facility] Neurology [address] [facility] [address] [place] [address] Austin Sethi MD Appointment 01/19/2022 Telephone [facility] Neurology [address] [facility] [address] [place] [address] Austin Sethi MD Follow Up 12/24/2021 Refill [facility] Neurology [address] [facility] [address] [place] [address] Austin Sethi MD 12/11/2021 Refill [facility] Neurology [address] [facility] [address] [place] [address] Austin Sethi MD E-prescribing Refill Request 11/15/2021 Telephone [facility] Neurology [address] [facility] [address] [place] [address] Austin Sethi MD Follow Up (DBS adjustment ) 10/29/2021 4:00 PM EDT Office Visit [facility] Neurology [address] [facility] [address] [place] [address] Austin Sethi MD Essential tremor (Primary Dx) 10/28/2021 Refill [facility] Neurology [address] [facility] [address] [place] [address] Toma Salas MD E-prescribing Refill Request 09/26/2021 Refill [facility] Neurology [address] [facility] [address] [place] [address] Austin Sethi MD E-prescribing Refill Request 09/12/2021 Refill [facility] Neurology [address] [facility] [address] [place] [address] Austin Sethi MD E-prescribing Refill Request 07/23/2021 Telephone [facility] Neurology [address] [facility] [address] [place] [address] Lorna Prado, SONALI Appointment 05/03/2021 3:30 PM EDT Office Visit [facility] Neurology [address] [facility] [address] [place] [address] Austin Sethi MD Essential tremor (Primary Dx) 04/16/2021 Telephone [facility] Neurology [address] [facility] [address] [place] [address] Austin Sethi MD Appointment 01/29/2021 4:45 PM EDT Office Visit [facility] Neurology [address] [facility] [address] [place] [address] Austin Sethi MD Essential tremor (Primary Dx) 12/31/2020 Telephone [facility] Neurology [address] [facility] [address] [place] [address] Austin Sethi MD Follow Up (DBS) 12/25/2020 Telephone [facility] Neurology [address] [facility] [address] [place] [address] Austin Sethi MD Medication Problem (Lorazepam) 12/24/2020 Telephone [facility] Neurology [address] [facility] [address] [place] [address] Austin Sethi MD Prior Authorization Request (lorazepam) 12/22/2020 Travel 12/22/2020 4:30 PM EDT Office Visit [facility] Neurology [address] [facility] 230 [place] [address] Austin Sethi MD Essential tremor (Primary Dx); PTSD (post-traumatic stress disorder) 12/15/2020 Refill [facility] Neurology [address] [facility] 230 [place] [address] Austin Sethi MD Refill Request (Xanax 0.25) 12/10/2020 10:30 AM EDT Office Visit [facility] Neurology [address] [facility] [address] [place] [address] Austin Sethi MD Essential tremor (Primary Dx) 12/09/2020 Telephone [facility] Neurology [address] [facility] [address] [place] [address] Austin Sethi MD Follow Up (DBS) 12/08/2020 Travel 12/08/2020 8:00 AM EDT Office Visit [facility] Neurology [address] [facility] [address] [place] [address] Austin Sethi MD Essential tremor (Primary Dx) 11/25/2020 Telephone [facility] Neurology [address] [facility] [address] [place] [address] Austin Sethi MD Other 10/30/2020 Refill [facility] Neurology [address] [facility] [address] [place] [address] Austin Sethi MD E-prescribing Refill Request 10/30/2020 Telephone [facility] Neurology [address] [facility] [address] [place] [address] Austin Sethi MD Medication Problem (primidone) 10/20/2020 Travel 10/20/2020 8:00 AM EDT Consult (Initial) [facility] Neurology [address] [facility] [address] [place] [address] Austin Sethi MD Essential tremor (Primary Dx) 10/01/2020 Telephone [facility] Neurology [address] [facility] 230 [place] [address] Austin Sethi MD Appointment 03/13/2018 Orders Only [facility] Cardiology [address] [facility] [address] [place] [address] Jorge Pascual DO 03/13/2018 Orders Only [facility] Pre-Admission Testing [address] [address] Yamilex Langston NP 03/13/2018 3:30 PM EDT Office Visit [facility] Pre-Admission Testing [address] [address] Yamilex Langston NP Preop examination (Primary Dx); Gastroesophageal reflux disease, esophagitis presence not specified; Hyperlipidemia, unspecified hyperlipidemia type; Hypertension, unspecified type; Benign prostatic hyperplasia, unspecified whether lower urinary tract symptoms present; Mood disorder; RLS (restless legs syndrome); SAMMIE (obstructive sleep apnea) 03/13/2018 3:00 PM EDT Nurse Visit [facility] Pre-Admission Testing [address] [address] Poonam Pedersen, RN Gastroesophageal reflux disease, esophagitis presence not specified (Primary Dx) 02/19/2018 2:45 PM EDT Consult (Initial) [facility] General Surgery [address] [facility] [address] [place] [address] Trevor Lo MD Gastroesophageal reflux disease without [...] problems Social History Smoking Status as of 11/12/2024 Tobacco Use Types Packs/Day Years Used Date [...] Not on file Procedures * Due to [place] state law, this organization might not be [...] lower urinary tract symptoms present Mood disorder RLS (restless legs syndrome) PROTHROMBIN TIME (PT) (INR), BLOOD Routine 03/13/2018 4:11 PM EDT Preop examination Gastroesophageal reflux disease, esophagitis presence not specified Hyperlipidemia, unspecified hyperlipidemia type Hypertension, unspecified type Benign prostatic hyperplasia, unspecified whether lower urinary tract symptoms present Mood disorder RLS (restless legs syndrome) HEPATIC FUNCTION PANEL (ALT,AST,ALK PH,BILI'S,TP,ALB) Routine 03/13/2018 4:11 PM EDT Preop examination Gastroesophageal reflux disease, esophagitis presence not specified Hyperlipidemia, unspecified hyperlipidemia type Hypertension, unspecified type Benign prostatic hyperplasia, unspecified whether lower urinary tract symptoms present Mood disorder RLS (restless legs syndrome) CBC INCLUDES DIFFERENTIAL AND PLATELET COUNT Routine 03/13/2018 4:11 PM EDT Preop examination Gastroesophageal reflux disease, esophagitis presence not specified Hyperlipidemia, unspecified hyperlipidemia type Hypertension, unspecified type Benign prostatic hyperplasia, unspecified whether lower urinary tract symptoms present Mood disorder RLS (restless legs syndrome) BASIC METABOLIC PANEL WITH (GFR) Routine 03/13/2018 4:11 PM EDT Preop examination Gastroesophageal reflux disease, esophagitis presence not specified Hyperlipidemia, unspecified hyperlipidemia type Hypertension, unspecified type Benign prostatic hyperplasia, unspecified whether lower urinary tract symptoms present Mood disorder RLS (restless legs syndrome) XRAY ESOPHAGUS 11/14/2017 Results * Due to [place] state law, this organization might not be [...] EDT 03/13/2018 8:44 PM EDT Yamilex Langston COMMISSIONING SPECIALIST CARDIOVASCULAR-WITH INBSK T RTG Final Result [facility] * PROTHROMBIN TIME (PT) (INR), BLOOD (03/13/2018 4:11 PM EDT) INR 1.0 [facility] Comment: Reference Range ? 0.9-1.1 Moderate-intensity Warfarin Therapy 2.0-3.0 Higher-intensity Warfarin Therapy ?? 3.0-4.0 PT 10.7 9.0 - 11.5 sec [facility] Comment: For more information on this test, go to: [email or web address] 03/13/2018 4:11 PM EDT 03/13/2018 9:37 PM EDT Narrative Resulting Agency Comment [id number] Yamilex Langston COMMISSIONING SPECIALIST LAB SAME DAY RESULT Final Result [facility] [address] [place] [address] * CBC INCLUDES DIFFERENTIAL AND PLATELET COUNT (03/13/2018 4:11 PM EDT) Pathologist [facility] WBC 5.2 3.8 - 10.8 Thousand/u L [...] 9:37 PM EDT Narrative Resulting Agency Comment [id number] Yamilex Langston COMMISSIONING SPECIALIST LAB SAME DAY RESULT Final Result Performing Organization Address City/State/[facility] Co de Phone Number [facility] [address] [place] [address] * HEPATIC FUNCTION PANEL (ALT,AST,ALK PH,BILI'S,TP,ALB) (03/13/2018 [...] 9:37 PM EDT Narrative Resulting Agency Comment [id number] Yamilex Langston COMMISSIONING SPECIALIST LABORATORY Final Res ult [facility] [address] [place] [address] * BASIC METABOLIC PANEL WITH (GFR) (03/13/2018 4:11 PM EDT) Glucose 98 65 - 99 mg/dL [facility] Comment:Fasting reference in terval Urea Nitrogen Blood (BUN) 20 7 - 25 mg/dL [facility] Creatinine 1.05 0.70 - 1.25 mg/dL [facility] Comment: For patients >49 years of age, the reference limit for Creatinine is approximately 13% higher for people identified as -Tajik. GFR 74 > OR = 60 mL/min/1 [...] needs for GFR calculation. Resulting Agency Comment [id number] Yamilex Langston COMMISSIONING SPECIALIST LABORATORY Final Res ult [facility] [address] [place] [address] * XRAY ESOPHAGUS (11/14/2017) 11/14/2017 us Pricila [...] specified forms of tremor 06/07/2022 Care Teams Dip Lube Operator Relationship Specialty Start Date End [place] [address] PCP - General Family Medicine 02/10/21
--- OUTSIDE RECORDS SUMMARY | 2024-11-12 16:19 | XMS_ITS | Encounter Summary ---
Author Organization [facility] Address [address] [place] [address] Care Team Providers Care Vehicle Operator Technician Name Role Phone Adeline Guo MD Primary Care Provider +1- [phone] Feliciano Evans MD Unavailable Yara Harding MD Unavailable [phone] Curt Wiseman MD Primary Care Provider +[phone]- [phone] Encounter Details Date Type Department Care Team (Late Contact Info) Description 05/20/2020 Scanned Document [address] [place] [phone] Provider, Generic Social History Tobacco Use [...] Upcoming Encounters Date Type Department Care Team ([facility] Contact Info) Description 12/09/2024 1:00 PM EDT Procedure visit [facility] Neurology [address] [place] [phone] Suman Dudley MD [address] [place] [address] [place] [address] documented as of this encounter Visit Diagnoses Not on filedocumented in this encounter Care Teams Vehicle Operator Technician Relationship Specialty Start Date End Date Adeline Guo MD [address] [place] [address] PCP - General Internal Medicine 03/10/20 10/13/24 Curt Wiseman MD [address] [place] [address] PCP - General Family Medicine 10/14/24 Feliciano Evans MD [address] [place] [address] Referring Provider 10/28/20 Yara Harding MD [address] [place] [address] Neurology 03/20/23 Austin Sethi [address] [place] [address] Neurology Neurology 06/07/22 documented as of this encounter
--- OUTSIDE RECORDS SUMMARY | 2024-11-12 16:19 | XMS_ITS | Encounter Summary ---
Author Organization [facility] Address [address] [place] [address] Care Team Providers Care Cotton Broker Name Role Phone Adeline Guo MD Primary Care Provider +1- [phone] Feliciano Evans MD Unavailable Yara Harding MD Unavailable [phone] Curt Wiseman MD Primary Care Provider +[phone]- [phone] Encounter Details Date Type Department Care Team ([facility] Contact Info) Description 04/08/2020 Scanned Document [facility] Neurosurgery [address] [phone] Monroe Choi MD [address] [place] [address] Social History Tobacco Use Types Packs/Day Years [...] Upcoming Encounters Date Type Department Care Team ([facility] Contact Info) Description 12/09/2024 1:00 PM EDT Procedure visit [facility] Neurology [address] [place] [address] Suman Dudley MD [address] [address] documented as of this encounter Visit Diagnoses Not on filedocumented in this encounter Care Teams Cotton Broker Relationship Specialty Start Date End Date Adeline Guo MD [address] [place] [address] PCP - General Internal Medicine 03/10/20 10/13/24 Curt Wiseman MD [address] [place] [address] Dr Garcia [address] [place] [address] PCP - General Family Medicine 10/14/24 Feliciano Evans MD [address] [place] [address] Referring Provider 10/28/20 Yara Harding MD [address] [place] [address] Neurology 03/20/[address] [address] Neurology Neurology 06/07/22 documented as of this encounter
--- OUTSIDE RECORDS SUMMARY | 2024-11-12 16:19 | XMS_ITS | Patient Health Record ---
Author Organization [facility] Address [address] [place] [address] Care Team Providers Care Hemming And Tacking Machine Operator Name Role Phone Adeline Guo Primary Care Provider Pricila Valenzuela Unavailable [phone] REASON FOR REFERRAL No Information MEDICATIONS Medication [...] GENERALIZED (789.07) Active confirmed Generalized abdominal pain (471449881) Problem Diarrhea (787.91) Active confirmed Diarrhea (05164190) Problem Vomiting (787.03) Active confirmed Vomiting (743296907) Problem Abnormal loss of weight (783.21) Active confirmed Abnormal weight loss (362360812) Problem GERD [Gastroesophage al reflux disease] (530.81) Active confirmed Gastroesophagea l reflux disease (disorder) (118971664) Problem Projectile vomiting with nausea (R11.12) Active confirmed Vomiting (735850911) Problem Diarrhea, unspecified type (R19.7) Active confirmed Diarrhea (84022448) Problem Chronic GERD (K21.9) Active confirmed 171816057 Problem Slow transit constipation (K59.01) Active confirmed 62274240 Problem Intractable cyclical vomiting with nausea (G43.A1) Active confirmed 38083167 Problem Barretts esophagus without dysplasia (K22.70) Active confirmed 339460524 Problem Bleeding per rectum (K62.5) Active confirmed 20593691 PLAN OF TREATMENT Pending Test Test Name Order Date *Ova+Parasites Exam, Routine 03/31/2015 MRI:ENTEROGRAPHY 03/31/2015 Gastric emptying study 03/31/2015 CT Abdomen Pelvis with contrast 08/05/20 16 Insurance Providers Payer Name Payer Address Payer Phone Subscriber Number Group Number Insured Name Patient Relationship to Insured Coverage Start Date Coverage End Date [place] B [place] National [place] [address] [place] [address] [id number] THALIA DANIELSON Self - patient is the insured Medicaid OF [facility] [address] [place] [address] [id number] THALIA DANIELSON Self - patient is the insured MEDICAL (GENERAL) HISTORY Medical History History ICD Code Hypertension Coronary artery disease s/p PCI Depression/ anxiety Hyperlipidemia Surgical History Surgery Date(Month/Year) cardiac stents
--- OUTSIDE RECORDS SUMMARY | 2024-11-12 16:19 | XMS_ITS | Encounter Summary ---
Author Organization [facility] Address [address] [place] [address] Care Team Providers Care Siebel Crm Developer Name Role Phone Adeline Locke Primary Care Provider Unavailable Reason for Visit * Reason Onset Date Comments Neurology apt with Dr. Kitchen 11/30/2021 Encounter Details Date Type Department Care Team (Late st Contact Info) Description 11/30/2021 Telephone [facility] [address] [place] [address] [phone] Telephone Intake, Staff Neurology apt with Dr. [...] scheduling. A good call back number is [phone]. documented in this encounter Plan of Treatment Not on file documented as of this encounter Visit Diagnoses Not on filedocumented in this encounter Care Teams Siebel Crm Developer Relationship Specialty Start Date End Date Adeline Locke PCP - General Pediatrics 11/14/17 documented as of this encounter
--- OUTSIDE RECORDS SUMMARY | 2024-11-12 16:19 | XMS_ITS | Referral Summary ---
Author Organization [facility] Address [address] [place] [address] Care Team Providers Care Ice Delivery Driver Name Role Phone Adeline Locke Primary Care Provider Unavailable Encounters Date Type Department Care Team Description 09/13/2024 Telephone [facility] Medicine [address] [place] [phone] Telephone Intake, Staff PAC Patient Request Call Back_Luke (Pt would like call back in regards bpm analyst used during surgery back in 2019 with [...] on file Medical Devices Implanted Type Area American Sign Language Teacher Device Identifier Shelf Expiration Date Model / Serial / Lot Baseplate Reverse Shoulder Prosthesis With P2 Coating 30mm - [id number] Implanted:Qty: 1 on 07/12/2019 by Andrew Butler MD at [facility] Implant [employer] 05/03/2025 508-32-204 / / [id number] Head Glenoid With Retaining Screw [place] Shoulder Prosthesis Neutral 32mm - [id number] Implanted:Qty: 1 on 07/12/2019 by Andrew Butler MD at [facility] Implant [employer] 04/09/2025 508-32-101 / / [id number] Insert Socket Humeral Standard Hxe-Plus Rsp Sterile 00ryp0ji - [id number] Implanted:Qty: 1 on 07/12/2019 by Andrew Butler MD at [facility] Implant [employer] 05/31/2023 509-00-432 / / [id number] Stem Humeral Standard Reverse Shoulder Prosthesis [id number] - [id number] Implanted:Qty: 1 on 07/12/2019 by Andrew Butler MD at [facility] Implant [employer] 07/12/2024 530-10-108 / / [id number] Screw Locking Reverse Shoulder Prosthesis [id number] - [id number] Implanted:Qty: 1 on 07/12/2019 by Andrew Butler MD at [facility] Screw [employer] 03/24/2025 506-03-130 / / [id number] Screw Locking Bone Reverse Shoulder Prosthesis [id number] - [id number] Implanted:Qty: 1 on 07/12/2019 by Andrew Butler MD at [facility] [employer] 04/19/2025 506-03-122 / / [id number] Screw Locking Reverse Shoulder Prosthesis [id number] - [id number] Implanted:Qty: 1 on 07/12/2019 by Andrew Butler MD at [facility] [employer] 02/27/2025 506-03-130 / / [id number] Insurance [facility] Advance Directives * Full Code (Latest Code Status on File) Date Activated Date Inactivated Comments 07/12/2019 1:40 PM 07/13/2019 8:20 PM * Full Code Date Activated Date Inactivated Comments 07/12/2019 6:13 AM 07/12/2019 1:40 PM Care Teams Ice Delivery Driver Relationship Specialty Start Date End Date Adeline Locke PCP - General Pediatrics 11/14/17
--- OUTSIDE RECORDS SUMMARY | 2024-11-12 16:19 | XMS_ITS | Clinical Summary ---
Author Organization [facility] Address [address] [place] [address] Care Team Providers Care General Education Instructor Name Role Phone Feliciano Evans MD Unavailable Yara Harding MD Unavailable Curt Wiseman MD Primary Care Provider Allergies Active Allergy Reactions Criticality Noted Date Comments Gabapentin Other (See Comments) Low 02/21/2022 Extreme non-functional - patient denies Pregabalin Shortness Of Breath High 02/21/2022 Pt denies Vardenafil Other (See Comments) High 03/17/2009 Medications Medication Sig Dispensed Refills Start Date End Date Status Multiple Vitamins-Minerals (CENTRUM SILVER 50+MEN PO) Centrum Silver Active [...] tablet (10 mg total) by mouth daily. 03/14/2020 Active finasteride (PROSCAR) 5 MG tablet finasteride 5 mg tablet TAKE 1 TABLET BY MOUTH EVERY DAY Active fluticasone (FloNASE) 50 mcg/spray nasal spray fluticasone propionate 50 mcg/actuation nasal spray,suspension USE 1 SPRAY IN EACH NOSTRIL EVERY MORNING 08/23/2019 Active lamoTRIgine (LaMICtal) 200 MG tablet Take 1 tablet (200 mg total) by mouth 2 (two) times a day. 03/12/2020 Active tadalafil (CIALIS) 5 MG tablet tadalafil 5 mg tablet TAKE 1 TABLET BY MOUTH EVERY DAY Active losartan-hydrochlo rothiazide (HYZAAR) 100-12.5 MG per tablet losartan 100 mg-hydrochlorothiaz halima 12.5 mg tablet TAKE 1 TABLET BY MOUTH EVERY DAY 07/13/2019 Active traZODone (DESYREL) 50 MG tablet trazodone 50 mg tablet TAKE 1 TO 2 TABLETS BY MOUTH EVERY DAY AT BEDTIME Active metoPROLOL SUCCINATE (TOPROL-XL) 50 MG 24 hr tablet Take 1.5 tablets (75 mg total) by mouth nightly. 10/04/2020 Active OMEprazole (PriLOSEC) 40 MG capsule Take 1 capsule (40 mg total) by mouth 2 (two) times a day. Active acetaminophen (TYLENOL) 325 MG tabletIndications: S/P deep brain stimulator placement,Essentia l tremor Take 3 tablets (975 mg total) by mouth every 8 (eight) hours around the clock. 270 tablet 11/05/2020 Active Additional Information Patient taking differently: 650 [...] ML BY MOUTH TWICE A DAY NEEDED 11/19/2020 Active ascorbic acid (VITAMIN C) 500 MG tabletIndications: S/P deep brain stimulator placement,Essentia l tremor TAKE 2 TABLETS BY MOUTH DAILY. DO NOT START BEFORE NOVEMBER 06, 2020. 60 tablet 03/16/2021 Active Additional Information Patient taking differently: 250 mg Oral Daily, Reported on 08/19/2022 Aspirin 81 MG Cap daily. 02/09/2021 Active clotrimazole-betam ethasone (LOTRISONE) cream as needed. 03/18/2021 Active lamoTRIgine (LaMICtal) 25 MG tablet Take 1 tablet (25 mg total) by mouth daily. 01/20/2021 Active nystatin (MYCOSTATIN) ointment As needed 03/17/2021 Active LORazepam (ATIVAN) 1 MG tablet Take 1 tablet (1 mg total) by mouth nightly. Takes half a tablet daily as needed 06/09/2021 Active b complex vitamins capsule Take 1 capsule by mouth daily. Active ferrous sulfate 324 (65 Fe) MG Tablet Delayed Response Take 1 tablet (324 mg total) by mouth daily. 06/05/2022 Active cetirizine (ZyrTEC) 10 MG tablet TAKE 1 TABLET BY MOUTH DAILY NEEDED FOR ALLERGY SYMPTOMS 11/30/2022 Active primidone (MYSOLINE) 50 MG tabletIndications: Essential tremor TAKE 3 TABLETS (150 MG TOTAL) BY MOUTH 3 (THREE) TIMES A DAY. 810 tablet 1 12/26/2023 Active Additional Information Patient taking differently: 150 mg Oral Nightly, Reported on 10/14/2024 gabapentin (NEURONTIN) 400 MG capsule TAKE 1 CAPSULE BY MOUTH EVERY NIGHT 01/03/2024 Active gabapentin (NEURONTIN) 100 MG capsule Take 2 capsules (200 mg total) by mouth daily. 08/01/2023 Active amoxicillin (AMOXIL) 500 MG capsule Please take 4 CAPS of 500 MG one hour before your next dental appointment. 03/19/2024 Active nitroglycerin (NITROSTAT) 0.[address] 1 tablet (0.4 mg total) under the tongue. Active Multiple Vitamin (Daily-Estefany Multivitamin) Tab Take 1 tablet by mouth. Active meloxicam (MOBIC) 15 MG tablet Take 1 tablet (15 mg total) by mouth. As needed 06/21/2024 Active linaclotide (LINZESS) 72 mcg capsule Take 1 capsule (72 mcg total) by mouth. 06/28/2024 Active lidocaine (XYLOCAINE) 5 % ointment Apply topically 3 (three) times a day as needed. 03/15/2024 Active ipratropium (ATROVENT) 0.06 % nasal spray into each nostril. 06/25/2024 Activ e hydroCHLOROthiazid e (HYDRODIURIL) 12.5 MG tablet Take 1 tablet (12.5 mg total) by mouth. FOR 90 DAYS 05/16/2024 Active doxycycline (VIBRAMYCIN) 100 MG capsule TAKE 1 CAPSULE ORALLY 2 TIMES A DAY 06/12/2024 Active diphenhydrAMINE-ac etaminophen (TYLENOL PM) 25-500 MG Tab Take 2 tablets by mouth nightly as needed. Active chlorhexidine (PERIDEX) 0.12 % oral solution TAKE 15 ML BY MOUTH 2 TIMES A DAY, GARGLE AND SPIT OUT 05/27/2024 Active psyllium (METAMUCIL) 58.6 % powder Take 1 packet by mouth as needed. Active Active Problems Problem Noted Date Diagnosed Date Abnormal weight loss 10/14/2024 Angina pectoris 10/14/2024 Anaya's esophagus 10/14/2024 Bleeding per rectum 10/14/2024 Exposure to potentially hazardous substance 10/05 Overview (10/14/2024): December 21, 2023 Entered By: KRISHNA FAGAN Comment: Entered automatically through [employer] Problem List documentation program Feb 20, 2024 Entered By: REJI BERNARD Comment: Agent [place] Registry Exam 02/20/24 Feb 20, 2024 Entered By: REJI BERNARD Comment: Agent [place] Exposure, [facility], [facility] 1967- Generalized abdominal pain 10/14/2024 Melena 10/14/2024 Microalbuminuria 10/14/2024 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 10/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 Osteoarthritis 10/14/2024 Personal history of traumatic brain injury 10/14 Proteinuria, unspecified 10/14/2024 Sensorineural hearing loss, bilateral 10/14/2024 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 with return to pre-existing conscious levels, subsequent encounter 10/14/2024 Intractable cyclical vomiting with nausea 2024 Lumbar disc herniation 07/08/2024 Lumbar nerve root impingement 07/08/2024 Nausea 11/24/2023 Overview (10/14/2024): Last Assessment & Plan: Condition: stable Source of diagnosis: Review of systems, Medication and Diagnosis confirmed from PCP record and currently active Follow up in: six months Constipation 11/24/2023 Overview (10/14/2024): Last Assessment & Plan: Condition: stable Source of diagnosis: Review of systems, Medication and Diagnosis confirmed from PCP record and currently active Follow up in: three months Insomnia 06/25/2022 Overview (10/14/2024): Last Assessment & Plan: Condition: stable Source of diagnosis: Review of systems, Physical Exam, Medication and Diagnosis confirmed from PCP record and currently active Follow up in: three months 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 06/25/2022 Overview (10/14/2024): Last Assessment & Plan: Condition: stable Source of diagnosis: Review of systems, Medication and Diagnosis confirmed from PCP record and currently active Follow up in: three months Intractable neuropathic pain of lower extremity 06/22/2022 Overview (10/14/2024): Last Assessment & Plan: Condition: stable Source of diagnosis: Review of systems, Physical Exam, Medication and Diagnosis confirmed from PCP record and currently active Follow up in: three months Asthma with allergic rhinitis 06/22/2022 Overview (10/14/2024): Last Assessment & Plan: Condition: stable Source of diagnosis: Review of systems, Medication and Diagnosis confirmed from PCP record and currently active Reviewed trigger avoidance and reviewed proper use of inhalers and rescue medications. Reviewed concerning signs/symptoms and ER precautions. Follow up in: three months Chronic pain of right knee 09/06/2021 Status post deep brain stimulator placement 02/04 Overview (09/24/2021): Amind - Tissue Regenix PC, Linear lead, right chest Postoperative visit 12/01/2020 Essential tremor 11/04/2020 Benign essential tremor 04/07/2020 Right groin pain 03/25/2019 Memory loss or impairment 02/14/2018 Right inguinal hernia 08/20/2015 Anxiety 06/02/2014 Chronic post-traumatic stress disorder 4 Overview (10/14/2024): Last Assessment & Plan: Condition: stable Source of diagnosis: Review of systems and Diagnosis confirmed from PCP record and currently active Follow up in: three months Depression 06/02/2014 Impaired fasting glucose 06/02/2014 Benign prostatic hyperplasia 05/21/2014 Essential hypertension 05/21/2014 Overview (10/14/2024): Last Assessment & Plan: Condition: stable Source of diagnosis: Review of systems, Physical Exam, Medication and Diagnosis confirmed from PCP record and currently active Follow up in: three months Gastroesophageal reflux disease 05/21/2014 Overview (10/14/2024): Last Assessment & Plan: Condition: stable Source of diagnosis: Review of systems, Physical Exam, Medication and Diagnosis confirmed from PCP record and currently active Reviewed use of antacid medication and/or diet modifications of decreasing caffeine, spicy foods, chocolate, and avoiding alcohol, tobacco, NSAIDs, and reducing citrus acids. 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 Lower back pain 05/21/2014 Primary erectile dysfunction 05/21/2014 Overview (10/14/2024): Apr 11, 2019 Entered By: DOMINGO GOLDBERG Comment: seen by urology 02/22 [place] syedd d/t [place] Encounters Date Type Department Care Team Description 10/29/2024 Telephone [facility] Neurology [address] [phone] Suman Dudley MD Other 10/14/2024 1:00 PM EDT Consult [facility] Neurology [address] [phone] Suman Dudley MD Essential tremor (Primary Dx); Status post deep brain stimulator placement 10/14/2024 Telephone [facility] Neurology [address] [phone] Suman Dudley MD 10/14/2024 Travel 10/03/2024 Telephone [facility] Neurology [address] [phone] Suman Dudley MD 09/09/2024 1:00 PM EST Consult [facility] Neurology [address] [phone] Suman Dudley MD Essential tremor (Primary Dx); Status post deep brain stimulator placement 09/09/2024 Travel from Last 3 Months Family History [...] Sign Reading Time Taken Comments Blood Pressure 154/78 10/14/2024 1:02 PM EDT Pulse 69 10/14/2024 1:02 PM EDT Temperature 36.7 ??C (98 ??F) 05/30/2022 3:26 [...] Description 12/09/2024 1:00 PM EDT Procedure visit [facility] Neu[facility] [address] [facility] [address] [place] [phone] Suman Dudley MD [address] [facility] [address] [place] [address] Health Maintenance Due Date Last Done Comments Hepatitis C Virus Screening 1950 DTaP/Tdap/Td Vaccines (1 - Tdap) 1971 Pneumococcal Vaccines 50+ (1 of 2 - PCV) 1971 Colonoscopy 1997 Zoster (Shingles) Vaccine (1 of 2) 2002 [...] this topic Medical Devices Implanted Type Area Laborer Hide House Device Identifier Shelf Expiration Date Model / Serial / Lot [id number] Extension Neurostimulator 60cm 1.3-3.8mm 1.5mm Std Qdpl Dist - [id number] Implanted:Qty: 1 on 11/25/2020 by Monroe Choi MD at [facility] Cerebral [employer] NEUROMODULATION - DI 09/10/2023 [id number] / [id number] / [id number] Extension Neurostimulator 60cm 1.3-3.8mm 1.5mm Std Qdpl Dist - [id number] Implanted:Qty: 1 on 11/25/2020 by Monroe Choi MD at [facility] Cerebral [employer] NEUROMODULATION - DI 01/31/2024 [id number] / [id number] / [id number] Screw Bone Mdfc 5mm 1.5mm Self Drill Htorq Xdr Amelia Madden - [id number] Implanted:Qty: 4 on 11/04/2020 by Monroe Choi MD at [facility] Maxillofacial Cranial [employer] [id number] / / [id number]-40 Lead Neurostimulator Strg Cylinder Firm Deep Brn Stm - [id number] Implanted:Qty: 1 on 11/04/2020 by Monroe Choi MD at [facility] Stimulator Right: Brain [employer] NEUROMODULATION - DI 05/25/2024 3387S-40 / / [id number] 3387s-40 Lead Neurostimulator Strg Cylinder Firm Deep Brn Stm - [id number] Implanted:Qty: 1 on 11/04/2020 by Monroe Choi MD at [facility] Stimulator [employer] NEUROMODULATION - DI 3387S-40 / / [id number] Neurostimulator Implantable 68mm X 51mm Percept 2 Chnl 61g - [id number] Implanted:Qty: 1 on 11/25/2020 by Monroe Choi MD at [facility] Stimulator [employer] NEUROMODULATION - DI 08/20/2022 [id number] / [id number] / [id number] Product Development Director Neurostimulator Patient Percept Pc Device - [id number] Implanted:Qty: 1 on 11/25/2020 by Monroe Choi MD at [facility] Stimulator [employer] NEUROMODULATION - DI [id number] / / [id number] Kit Stimulator Tunnel Deep Brn Stm - [id number] Implanted:Qty: 1 on 11/25/2020 by Monroe Choi MD at [facility] Stimulator [employer] NEUROMODULATION - DI [id number] / / [id number] Filler Bone Void 10cc 20cc Calcium Slf Stimulan Rpd Cure Kit - [id number] Implanted:Qty: 1 on 11/04/2020 by Monroe Choi MD at [facility] Void Filler N/A: Brain [employer] 12/04/2022 620-010 / / [id number] 620-010 Filler Bone Void 10cc 20cc Calcium Slf Stimulan Rpd Cure Kit - [id number] Implanted:Qty: 1 on 11/25/2020 by Monroe Choi MD at [facility] Void Filler Right: Chest [employer] 12/04/2022 620-010 / / [id number] Description:mixed with 1 gm vancomycin powder and 1.2gm tobramycin powder Explanted Type Area Laborer Hide House Device Identifier Shelf Expiration Date Model / Serial / Lot 70-It-Ar5p Electrode Neurostimulator Star Hedy Microtargetting Dzap - [id number] Explanted:Qty: 1 on 11/04/2020 by Monroe Choi MD at [facility] Stimulator Brain [employer] 10/15/2021 70-IT-AR 5P / / [id number] 66-It-Ar4p Electrode Neurostimulator Microtargeting Unilateral - [id number] Explanted:Qty: 1 on 11/04/2020 by Monroe Choi MD at [facility] Stimulator Brain [employer] 02/25/2023 66-IT-AR 4P / / [id number] 2122-68 Cable Neurostimulator Twstlk Scrn Sterl Lf - [id number] Explanted:Qty: 1 on 11/04/2020 by Monroe Choi MD at [facility] Stimulator Right: Brain [employer] NEUROMODULATION - DI 09/03/2024 3550-68 / / [id number] Description:NOT AN IMPLANT Advance Directives * Full Code (Latest Code Status on File) Date Activated Date Inactivated Comments 11/25/2020 8:30 AM * Full Code Date Activated Date Inactivated Comments 11/04/2020 4:31 PM 11/25/2020 7:56 AM Care Teams General Education Instructor Relationship Specialty Start Date End Date Curt Wiseman MD [address] [place] [address] Dr Cabrera JamisonMEGAN [id number] PCP - General Family Medicine 10/14/24 Feliciano Evans MD Referring Provider 10/28/20 Yara Harding MD Neurology 03/20/23 Austin Sethi [address] [place] [address] Neurology Neurology 06/07/22
--- OUTSIDE RECORDS SUMMARY | 2024-11-12 16:20 | XMS_ITS | Encounter Summary ---
Author Organization [facility] Address [address] [place] [address] Care Team Providers Care Department Mgr Name Role Phone Adeline Guo MD Primary Care Provider [phone] Feliciano Evans MD Unavailable Yara Harding MD Unavailable [phone] Curt Wiseman MD Primary Care Provider [phone] Encounter Details Date Type Department Care Team ([facility] Contact Info) Description 10/30/2020 Scanned Document [facility] Neurology [address] [place] [phone] Angelica Zuluaga, [address] [place] [address] [phone] Social History Tobacco Use Types Packs/Day Years [...] Upcoming Encounters Date Type Department Care Team ([facility] st Contact Info) Description 12/09/2024 1:00 PM EDT Procedure visit [facility] Neurology Jl [address] [facility] [address] [place] [phone] Suman Dudley MD [address] [address] documented as of this encounter Visit Diagnoses Not on filedocumented in this encounter Care Teams Department Mgr Relationship Specialty Start Date End Date Adeline Guo MD [address] [place] [address] PCP - General Internal Medicine 03/10/20 10/13/24 Curt Wiseman MD [address] [place] [address] Dr Garcia [address] [place] [address] PCP - General Family Medicine 10/14/24 Feliciano Evans MD [address] [place] [address] Referring Provider 10/28/20 Yara Harding MD [address] [place] [address] Neurology 03/20/23 Austin Sethi [address] [place] [id number] Neurology Neurology 06/07/22 documented as of this encounter
--- OUTSIDE RECORDS SUMMARY | 2024-11-12 16:20 | XMS_ITS | Encounter Summary ---
Author Organization [facility] Address [address] [place] [address] [address] [place] [address] Care Team Providers Care Knitting Demonstrator Name Role Phone Unavailable Primary Care Provider Unavailabl e Encounter Details Date Type Department Care Team (Latest Contact Info) Description 04/13/2022 Abstract [facility] CONVERSION[facility] Dental, Provider, DDS Social History [...] Care Team (Late st Contact Info) Description 11/13/2024 1:00 PM EDT Office Visit [facility] [address] [place] [address] Alex Burns, JANAK [address] [place] [address] documented as of this encounter Visit Diagnoses Not on filedocumented in this encounter
--- OUTSIDE RECORDS SUMMARY | 2024-11-12 16:20 | XMS_ITS | Encounter Summary ---
Author Organization [facility] Address [address] [place] [address] Care Team Providers Care Analysis Specialist Name Role Phone Adeline Guo MD Primary Care Provider +1- [phone] Curt Wiseman MD Primary Care Provider +[phone] Encounter Details Date Type Department Care Team (Late st Contact Info) Description 03/13/2018 Orders Only [facility] Pre-Admission Testing [address] [facility] [address] [place] [address] Yamilex Langston NP Social History Tobacco Use [...] of this encounter Procedures * Due to [place] state law, this organization might not be [...] present Mood disorder RLS (restless legs syndrome) documented in this encounter Results * Due to [place] state law, this organization might not be [...] 4:18 PM EDT 03/13/2018 8:44 PM EDT us Yamilex Langston CH[facility]UNER CARDIOVASCULAR-WITH INBSK T RTG Final Result [facility] E[facility] * PROTHROMBIN TIME (PT) (INR), BLOOD (03/13/2018 4:11 PM EDT) INR 1.0 [facility] Comment: Reference Range ? 0.9-1.1 Moderate-intensity Warfarin Therapy 2.0-3.0 Higher-intensity Warfarin Therapy ?? 3.0-4.0 PT 10.7 9.0 - 11.5 sec [facility] Comment: For more information on this test, go to: http://education.Taecanet/faq/FJN652 03/13/2018 4:11 PM EDT 03/13/2018 9:37 PM EDT Narrative Resulting Agency Comment [id number] Yamilex Langston [facility] LAB SAME DAY RESULT Final Result [facility] [address] [place] [address] * HEPATIC FUNCTION PANEL (ALT,AST,ALK PH,BILI'S,TP,ALB) (03/13/2018 [...] 9:37 PM EDT Narrative Resulting Agency Comment [id number] Yamilex Langston [facility] LABORATORY Final Res ult [facility] [address] [place] [address] * CBC INCLUDES DIFFERENTIAL AND PLATELET COUNT [...] 9:37 PM EDT Narrative Resulting Agency Comment [id number] Yamilex Langston [facility] LAB SAME DAY RESULT Final Result [facility] [address] [place] [address] * BASIC METABOLIC PANEL WITH (GFR) (03/13/2018 4:11 PM EDT) Glucose 98 65 - 99 mg/dL [facility] Comment:Fasting reference in terval Urea Nitrogen Blood (BUN) 20 7 - 25 mg/dL [facility] Creatinine 1.05 0.70 - 1.25 mg/dL [facility] Comment: For patients >49 years of age, the reference limit for Creatinine is approximately 13% higher for people identified as -Ivorian. GFR 74 > OR = 60 mL/min/1 [...] needs for GFR calculation. Resulting Agency Comment [id number] Yamilex Langston NP LABORATORY Final Res ult [facility] [address] [place] [address] documented in this encounter Visit Diagnoses Diagnosis Preop examination Preoperative examination, unspecified Gastroesophageal reflux disease, esophagitis presence not specified Hyperlipidemia, unspecified hyperlipidemia type Hypertension, unspecified type Benign prostatic hyperplasia, unspecified whether lower urinary tract symptoms present Mood disorder Unspecified episodic mood disorder RLS (restless legs syndrome) Restless legs syndrome (RLS) documented in this encounter Care Teams Analysis Specialist Relationship Specialty Start Date End Date Adeline Guo MD [address] [phone] PCP - General Internal Medicine 11/30/17 02/09/21 Curt Wiseman MD [address] [address] PCP - General Family Medicine 02/10/21 documented as of this encounter
--- OUTSIDE RECORDS SUMMARY | 2024-11-12 16:20 | XMS_ITS | Encounter Summary ---
Author Organization [employer] Address [address] [place] [address] 7t [place] [address] Care Team Providers Care Pharmacy Service Associate Name Role Phone Unavailable Primary Care Provider Unavailabl e Reason for Visit * Reason Onset Date Comments appt temp crown fell off/recement 03/19/2024 Encounter Details Date Type Department Care Team (Late st Contact Info) Description 03/19/2024 Telephone [facility] [address] [place] [address] Rocío Castillo, ROSEMARIES [address] [place] [address] appt temp crown fell off/recement Social History [...] fell off. Ok to schedule per Megan patient coordinator front desk. Informed patient coordinator front desk via phone that [employer] is not an insurance we have access [...] tomorrow at 1:30. They would like to strip picker in the morning to have it ready to take prior to treatment. The pharmacy on file is the one to use. documented in this encounter Plan of Treatment Upcoming Encounters Date Type Department Care Team (Late st Contact Info) Description 11/13/2024 1:00 PM EDT Office Visit [facility] ADULT D[facility]AL [address] [place] [address] Alex Burns, JANAK [address] [place] [address] documented as of this encounter Visit Diagnoses Not on filedocumented in this encounter
--- OUTSIDE RECORDS SUMMARY | 2024-11-12 16:20 | XMS_ITS | Clinical Summary ---
Author Organization [employer] [facility] Address [address] [place] [address] 7[address] [place] [address] Care Team Providers Care Shipping Coordinator Name Role Phone Unavailable Primary Care Provider Unavailabl e Allergies No known active allergies Medications chlorhexidine (Peridex) 0.12 % solutionIndica tions:History of tooth extraction, unspecified edentulism class Fill irrigation syringe and irrigate extraction socket following meals. Spit, do not swallow. 473 mL 01/06/20 23 Active ibuprofen 600 MG tabletIndicati ons:History of tooth extraction, unspecified edentulism class Take 1 tablet (600 mg) by mouth every 6 (six) hours if needed for mild pain for up to 20 doses. 20 tablet 01/06/20 23 Active amoxicillin (Amoxil) 500 MG capsule Take 4 capsules one hour before the dental appointment. 12 capsule 03/23/20 23 Active acetaminophen (Tylenol) 325 MG tablet Take 975 mg by mouth in the morning and 975 mg at noon and 975 mg in the evening. 07/13/20 19 Active albuterol 108 (90 Base) MCG/ACT inhaler 08/16/19 24 Active amLODIPine (Norvasc) 10 MG tablet Take 1 tablet by mouth in the morning. 11/03/19 19 Active Ascorbic Acid (vitamin C) 500 MG tablet Take 500 mg by mouth in the morning. 09/11/19 23 Active Aspirin 81 MG capsule daily. 02/10/20 21 Active atorvastatin (Lipitor) 80 MG tablet Take 1 tablet by mouth at bedtime. 03/20/20 14 Active cetirizine (ZyrTEC) 10 MG tablet TAKE 1 TABLET BY MOUTH DAILY NEEDED FOR ALLERGY SYMPTOMS 05/31/20 23 Active cyclobenzaprin e (Flexeril) 10 MG tablet TAKE 1 TABLET BY MOUTH 3 TIMES A DAY FOR PAIN OR SPASM 08/03/20 Active ezetimibe (Zetia) 10 MG tablet Take 10 mg by mouth in the morning. 05/22/20 Active finasteride (Proscar) 5 MG tablet Take 1 tablet by mouth in the morning. 08/30/19 Active fluticasone (Flonase) 50 MCG/ACT nasal spray USE 1 SPRAY IN EACH NOSTRIL EVERY 12 HOURS 05/24/20 Active gabapentin (Neurontin) 100 MG capsule Take 100 mg by mouth 2 times daily. 08/01/20 Active lamoTRIgine (LaMICtal) 200 MG tablet Take 1 tablet by mouth 2 times daily. 07/29/20 Active LORazepam (Ativan) 1 MG tablet TAKE ONE TABLET (1 MG TOTAL) BY MOUTH EVERY NIGHT 02/22/20 Active Multiple Vitamin (One-Daily Multi-Vitamin) tablet Take 1 tablet by mouth in the morning. 07/26/20 Active omeprazole (PriLOSEC) [address] capsule Take 40 mg by mouth 2 times daily. 06/23/20 Active predniSONE (Deltasone) 10 MG tablet TAKE 4 TABS DAILY X4 DAYS, 3 TABS DAILY X2 DAYS, 2 TABS DAILY X2 DAYS, 1 TAB DAILY X2 DAYS 07/19/20 Active primidone (Mysoline) 50 MG tablet Take 1 tablet by mouth in the morning. 04/19/20 22 Active Probiotic Product (Align) 4 MG capsule daily. Active amoxicillin (Amoxil) 500 MG capsule Take 4 capsules one hour before the dental appointment. 16 capsule 10/09/19 25 Active amoxicillin (Amoxil) 500 MG capsule Please take 4 CAPS of 500 MG one hour before your next dental appointment. 4 capsule 11/13/19 25 Active amoxicillin (Amoxil) 500 MG capsule Please take 4 CAPS of 500 MG one hour before your next dental appointment. 4 capsule 03/19/20 24 025 Discontinued(Re order (will not trigger notification to Pharmacy)) Active Problems No known active problems Encounters Date Type Department Care Team Description 11/12/2024 Refill [facility] ADULT DENTAL [address] [place] [address] Rocío Castillo DDS 10/23/2024 3:15 PM EDT Office Visit [facility] ADULT DENTAL [address] [place] [address] Rocío Castillo DDS 10/08/2024 Refill [facility] ADULT DENTAL [address] [place] [address] Rocío Castillo DDLynn 09/05/2024 Telephone [facility] ADULT DENTAL [address] [place] [address] Alex Burns DMD from Last 3 Months Social History Tobacco [...] Description 11/13/2024 1:00 PM EDT Office Visit [facility] ADULT DENTAL [address] [place] [address] Alex Burns DMD [address] [place] [address] Health Maintenance Due Date Last Done Comments [...] Procedure Name Priority Date/Time Associated Diagnosis Comments CONSULTATION - DIAGNOSTIC SERVICE PROVIDED BY DENTIST OR PHYSICIAN OTHER THAN REQUESTING DENTIST OR PHYSICIAN Routine 10/23/2024 3:15 PM EDT BITEWING - SINGLE RADIOGRAPHIC IMAGE Routine 11/17/2023 3:00 PM EDT PANORAMIC RADIOGRAPHIC IMAGE Routine 10/04/2023 1:00 PM EST Full PROPHYLAXIS - ADULT Routine 024 2:00 PM EST PERIODIC ORAL EVALUATION - ESTABLISHED PATIENT Routine 08/22/2023 2:00 PM EST from Last 3 Months or Most Recently Relevant to Health Maintenance Insurance DENTAL - [facility]
--- OUTSIDE RECORDS SUMMARY | 2024-11-12 16:20 | XMS_ITS | Encounter Summary ---
Author Organization [facility] Address [address] [place] [address] Care Team Providers Care Education Professional Name Role Phone Curt Wiseman MD Primary Care Provider [phone]- [phone] Reason for Visit * Reason Comments Appointment Encounter Details Date Type Department Care Team ([facility] st Contact Info) Description 04/16/2021 Telephone [facility] Neurology [address] [address] Austin Sethi MD 123 [facility] [address] [place] [address] Appointment Social History Tobacco Use Types Packs/Day [...] Phone 05/03/21 3:30 PM Austin Sethi MD [facility] Neurology [address] * Telephone [...] Phone 04/20/21 2:15 PM Austin Sethi MD [facility] Neurology [address] * Telephone [...] on filedocumented in this encounter Care Teams Education Professional Relationship Specialty Start Date End Date Curt Wiseman MD [address] [address] PCP - General Family Medicine 02/10/21 documented as of this encounter
--- OUTSIDE RECORDS SUMMARY | 2024-11-12 16:20 | XMS_ITS | Encounter Summary ---
Author Organization [employer] [facility] Address [address] [place] [address] 7t [place] [address] Care Team Providers Care Greeting Card Editor Name Role Phone Unavailable Primary Care Provider Unavailabl e Reason for Visit * Reason Onset Date Comments Med Refill 10/08/2024 Encounter Details Date Type Department Care Team (Late st Contact Info) Description 10/08/2024 Refill [facility] ADULT DENTAL [address] [place] [address] Rocío Castillo DDS [address] [place], [place] [phone] Social History Tobacco Use Types Packs/Day Years [...] encounter Miscellaneous Notes * Telephone Encounter - Rocío Castillo DDS - 10/08/2024 2:54 PM EST Approving, but needs appt for additional refills. documented in this encounter Plan of Treatment Upcoming Encounters Date Type Department Care Team (Late st Contact Info) Description 11/13/2024 1:00 PM EDT Office Visit [facility] ADULT DENTAL [address] [place] [address] Alex Burns, JANAK [address] [place], [place] [phone] documented as of this encounter Visit Diagnoses Not on filedocumented in this encounter
--- OUTSIDE RECORDS SUMMARY | 2024-11-12 16:20 | XMS_ITS | Encounter Summary ---
Author Organization [facility] Address [address] [place] [address] Care Team Providers Care Geographical Historian Name Role Phone Adeline Guo MD Primary Care Provider +1- [phone] Feliciano Evans MD Unavailable Yara Harding MD Unavailable [phone] Curt Wiseman MD Primary Care Provider +[phone]- [phone] Encounter Details Date Type Department Care Team (Late st Contact Info) Description 02/28/2023 [facility] Neurology [address] [place] [address] Yara Harding MD [facility] S [address] [place] [address] Social History Tobacco Use Types Packs/Day Years [...] Description 12/09/2024 1:00 PM EDT Procedure visit [facility] Neurology [place] 35 [facility] 6 [place] [address] Suman Dudley MD [address] [address] documented as of this encounter Visit Diagnoses Not on filedocumented in this encounter Care Teams Geographical Historian Relationship Specialty Start Date End Date Adeline Guo MD [address] [place] [address] PCP - General Internal Medicine 03/10/20 10/13/24 Curt Wiseman MD [address] [place] [address] Dr Garcia [address] [place] [address] PCP - General Family Medicine 10/14/24 Feliciano Evans MD [address] [place] [address] Referring Provider 10/28/20 Yara Harding MD [address] [place] [address] Neurology 03/20/23 Austin Sethi [address] [place] [address] Neurology Neurology 06/07/22 documented as of this encounter
--- OUTSIDE RECORDS SUMMARY | 2024-11-12 16:20 | XMS_ITS | Encounter Summary ---
Author Organization [employer] [facility] Address [address] [place] [address] 7 [place] [address] Care Team Providers Care Roll Plugger Machine Operator Name Role Phone Unavailable Primary Care Provider Unavailabl e Reason for Visit * Reason Onset Date Comments Med Refill 11/12/2024 Encounter Details Date Type Department Care Team (Late st Contact Info) Description 11/12/2024 Refill [facility] ADULT DENTAL [address] [place] [address] Rocío Castillo, DDS [address] [place] [address] Social History Tobacco Use Types Packs/Day Years [...] Description 11/13/2024 1:00 PM EDT Office Visit [facility] ADULT DENTAL [address] [place] [address] Alex Burns, DMD [address] [place] [address] documented as of this encounter Visit Diagnoses Not on filedocumented in this encounter
--- OUTSIDE RECORDS SUMMARY | 2024-11-12 16:20 | XMS_ITS | Encounter Summary ---
Author Organization [facility] Address [address] [place] [address] Care Team Providers Care Fish Farm Manager Name Role Phone Adeline Guo MD Primary Care Provider +1- [phone] Feliciano Evans MD Unavailable Yara Harding MD Unavailable [phone] Curt Wiseman MD Primary Care Provider +1- [phone] Encounter Details Date Type Department Care Team ([facility] st Contact Info) Description 05/31/2022 Scanned Document [facility] Neuro[facility] [place] [address] [facility] [address] [place] [phone] Monroe Choi MD [address] [facility] [place] [address] [place] [phone] Social History Tobacco Use Types Packs/Day Years [...] EDT Procedure visit [facility] Neurology [place] [address] [facility] [address] [place] [phone] Suman Dudley MD [address] [address] documented as of this encounter Visit Diagnoses Not on filedocumented in this encounter Care Teams Fish Farm Manager Relationship Specialty Start Date End Date Adeline Guo MD [address] [place] [address] PCP - General Internal Medicine 03/10/20 10/13/24 Curt Wiseman MD [address] [place] [address] [address] PCP - General Family Medicine 10/14/24 Feliciano Evans MD [address] [place] [address] Referring Provider 10/28/20 Yara Harding MD [address] [place] [address] Neurology 03/20/23 Austin Sethi [address] [place] [address] Neurology Neurology 06/07/22 documented as of this encounter
--- OUTSIDE RECORDS SUMMARY | 2024-11-12 16:20 | XMS_ITS | Encounter Summary ---
Author Organization [facility] Address [address] [place] [address] Care Team Providers Care College Sports Coach Name Role Phone Adeline Guo MD Primary Care Provider +1- [phone] Feliciano Evans MD Unavailable Yara Harding MD Unavailable [phone] Curt Wiseman MD Primary Care Provider +[phone]- [phone] Encounter Details Date Type Department Care Team (Late st Contact Info) Description 07/19/2022 Telephone [facility] Neurology [address] [place] [phone] Yara Harding MD [facility] S [address] [place] [address] Social History Tobacco Use Types Packs/Day Years [...] Description 12/09/2024 1:00 PM EDT Procedure visit [facility] Neurology [place] 35 [facility] [address] [place] [address] Suman Dudley MD [address] [address] documented as of this encounter Visit Diagnoses Not on filedocumented in this encounter Care Teams College Sports Coach Relationship Specialty Start Date End Date Adeline Guo MD [address] [place] [address] PCP - General Internal Medicine 03/10/20 10/13/24 Curt Wiseman MD [address] [place] [address] Dr Garcia [address] [place] [address] PCP - General Family Medicine 10/14/24 Feliciano Evans MD [address] [place] [address] Referring Provider 10/28/20 Yara Harding MD [address] [place] [address] Neurology 03/20/[address] [address] Neurology Neurology 06/07/22 documented as of this encounter
--- OUTSIDE RECORDS SUMMARY | 2024-11-12 16:20 | XMS_ITS | Encounter Summary ---
Author Organization [employer] Address [address] [place] [address] 7t [place] [address] Care Team Providers Care Health Evaluator Name Role Phone Unavailable Primary Care Provider Unavailabl e Reason for Visit * Reason Onset Date Comments instructions 12/28/2022 Dental Pain 12/28/2022 Encounter Details Date Type Department Care Team (Late st Contact Info) Description 12/28/2022 Telephone [facility] ADULT DENTAL [address] [place] [address] Alex Burns DMD [address] [place] [address] instructions; Dental Pain Social History Tobacco Use [...] PM EDT Office Visit [facility] ADULT D[facility]AL [address] [place] [address] Alex Burns, DMD [address] [place] [address] documented as of this encounter Visit Diagnoses Not on filedocumented in this encounter
--- OUTSIDE RECORDS SUMMARY | 2024-11-12 16:20 | XMS_ITS | Encounter Summary ---
Author Organization [facility] Address [address] [place] [address] 7t [place] [address] Care Team Providers Care Rn Ed Name Role Phone Unavailable Primary Care Provider Unavailabl e Encounter Details Date Type Department Care Team (Late st Contact Info) Description 03/18/[address] [facility] ADULT DENTAL [address] [place] [address] [employer] [address] [place] [address] Social History Tobacco Use Types Packs/Day Years [...] 1:00 PM EDT Office Visit [facility] ADULT DENTAL [address] [place] [address] Alex Burns, DMD [address] [place] [address] documented as of this encounter Visit Diagnoses Not on filedocumented in this encounter
--- OUTSIDE RECORDS SUMMARY | 2024-11-12 16:20 | XMS_ITS | Encounter Summary ---
Author Organization [facility] Address [address] [place] [address] Care Team Providers Care Development Writer Name Role Phone Adeline Guo MD Primary Care Provider +1- [phone] Feliciano Evans MD Unavailable Yara Harding MD Unavailable [phone] Curt Wiseman MD Primary Care Provider +[phone]- [phone] Encounter Details Date Type Department Care Team ([facility] Contact Info) Description 05/15/2020 Scanned Document [facility] Neurosurgery [address] [phone] Marcelino Steen MD [address] [address] Social History Tobacco Use Types Packs/Day Years [...] Upcoming Encounters Date Type Department Care Team ([facility] Contact Info) Description 12/09/2024 1:00 PM EDT Procedure visit [facility] Neurology [place] 35 [facility] 6 [place] [address] Suman Dudley MD [address] [address] documented as of this encounter Visit Diagnoses Not on filedocumented in this encounter Care Teams Development Writer Relationship Specialty Start Date End Date Adeline Guo MD [address] [place] [address] PCP - General Internal Medicine 03/10/20 10/13/24 Curt Wiseman MD [address] [place] [address] PCP - General Family Medicine 10/14/24 Feliciano Evans MD [address] [place] [address] Referring Provider 10/28/20 Yara Harding MD [address] [place] [address] Neurology 03/20/[address] [address] Neurology Neurology 06/07/22 documented as of this encounter
--- OUTSIDE RECORDS SUMMARY | 2024-11-12 16:20 | XMS_ITS | Encounter Summary ---
Author Organization [facility] Address [address] [place] [address] Care Team Providers Care Auto Camp Attendant Name Role Phone Adeline Guo MD Primary Care Provider +1- [phone] Feliciano Evans MD Unavailable Yara Harding MD Unavailable [phone] Curt Wiseman MD Primary Care Provider Reason for Referral * Surgical (Routine) - Closed Specialty Diagnoses / Procedures Referred By Tamika t Referred To Contact Anesthesiology Diagnoses Benign essential tremor Monroe Choi MD [address] [place] [address] [address] [place] [phone] Referral ID Status Reason Start Date Expiration Date V isits Requested Visits Authorized [id number] Closed Specialty Services Required 11/14/2020 11/15/2021 1 1 Encounter Details Date Type Department Care Team (Late st Contact Info) Description 10/26/2020 Prep for Surgery [facility] Neurosurgery [place] 35 [facility] [address] [place] [address] Emilee Brewer RN 35 [place] [address] Benign essential tremor (Primary Dx) Social History [...] Description 12/09/2024 1:00 PM EDT Procedure visit [facility] Neurology [address] [address] Suman Dudley MD [address] [place] [address] Scheduled Referrals Name Type Priority Associated Diagnoses Order Schedule Ambulatory referral to Anesthesiology Outpatient Referral Routine Benign essential tremor Ordered: 11/14/2020 documented as of this encounter Visit Diagnoses Diagnosis Benign essential tremor- Primary Essential and other specified forms of tremor documented in this encounter Care Teams Auto Camp Attendant Relationship Specialty Start Date End Date Adeline Guo MD [address] [place] [address] PCP - General Internal Medicine 03/10/20 10/13/24 Curt Wiseman MD [address] [place] [address] Dr Garcia [facility] [place] [address] PCP - General Family Medicine 10/14/24 Feliciano Evans MD [address] [place] [address] Referring Provider 10/28/20 Yara Harding MD [address] [place] [phone] Neurology 03/20/23 Austin Sethi [address] [place] [address] Neurology Neurology 06/07/22 documented as of this encounter
--- OUTSIDE RECORDS SUMMARY | 2024-11-12 16:20 | XMS_ITS | Encounter Summary ---
Author Organization [employer] [facility] Address [address] [place] [address] 7[address] [place] [address] Care Team Providers Care Clinical Nursing Intern Name Role Phone Unavailable Primary Care Provider Unavailabl e Reason for Visit * Reason Onset Date Comments medication pre med 07/17/2023 Encounter Details Date Type Department Care Team (Late st Contact Info) Description 07/17/2023 Telephone [facility] ADULT DENTAL [address] [place] [address] Art Poe DDS [address] [place] [address] medication pre med Social History Tobacco Use [...] Description 11/13/2024 1:00 PM EDT Office Visit [facility] ADULT DENTAL [address] [place], [place] [phone] Alex Burns, JANAK [address] [place], [place] [phone] documented as of this encounter Visit Diagnoses Not on filedocumented in this encounter
--- OUTSIDE RECORDS SUMMARY | 2024-11-12 16:20 | XMS_ITS | Clinical Summary ---
Author Organization [facility] Address [address] [place] [address] Phone Care Team Providers Care Heel Seat Laster Name Role Phone Curt Wiseman MD Primary Care Provider [phone] Allergies No known active allergies Medications linaCLOtide (Linzess) 72 mcg capsuleIndicatio ns:Constipation, unspecified [...] each day. 90 each 3 5 Active metoprolol succinate (TOPROL-XL) 50 mg 24 hr tablet TAKE 1 TABLET BY MOUTH EVERY DAY WITH 25 MG TABS DO NOT CRUSH CHEW 90 tablet 5 Active Active Problems Problem Noted Date [...] sleep apnea hypopnea, severe 016 Overview (07/08/2024): [facility] Home Polysomnogram: Date 12/08/2015; AHI 8, Unclassified apneas 0; Obstructive apneas 0; Central apneas 0; Mixed apneas 0; hypopneas 20; average oxygen saturation 94% (lowest 87% without saturations <88% for 5% or more of study) [facility] Polysomnogram treatment study. Date 02/28/2018. SE 84 % SM 86 %; spent 16 % of the study in REM. On CPAP @ 8; RDI 0.7 (AHI 0.3), Central apneas 0; Obstructive apneas 0; Mixed apneas 0; hypopneas 1; RERAs 1; and, average oxygen saturation was 93%. For the entire study, PLMs ~20. 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 05/21/2014 Overview (07/08/2024): [...] Encounters Date Type Department Care Team Description 11/05/2024 3:50 PM EDT - 11/05/2024 11:59 PM EDT Hospital Encounter [facility] Neurodiagnostic [address] [place] [phone] Paresthesias in left hand Discharge Disposition: Home or Self Care 08/28/2024 1:45 PM EST Office Visit Orthopedic Surgery [facility] [address] [facility] [address] [place] [phone] Michelle Watson PA Left arm pain (Primary Dx) 08/21/2024 Telephone Orthopedic Surgery [facility] [address] [facility] [address] [place] [phone] Michelle Watson PA from Last 3 Months Immunizations Name Administration Dates Next Due Influenza trivalent, 0.5mL (Fluad) 65yo and olde r 05/24/2019 Influenza trivalent, 0.5mL, preservative free (Fluarix; FluLaval; Fluzone) ages 6mo and older (Afluria) 3 years and older 07/09/2018,06/04/2014 Viva Republica SARS-CoV-2 COVID-19, mRNA, LNP-S, preservative free 10/08/2020,09/17/2020 Pneumococcal polysaccharide 23 valent (Pneumovax 23) 2yo and older 07/22/2011 Zoster recombinant (Shingrix) 19yo and older 06/2021 Surgical History Surgery Date Site/Laterality Comments SHOULDER SURGERY PROCEDURE: HISTORICAL SHOULDER SURGERY; COMMENT: bilateral KNEE SURGERY PROCEDURE: HISTORICAL KNEE SURGERY; COMMENT: right OTHER SURGICAL HISTORY PROCEDURE: HISTORICAL UNSPECIFIED FRACTURE; COMMENT: left wrist CARDIAC CATHETERIZATION 90, 92, 98, 2012 PROCEDURE: HISTORICAL CARDIAC CATH; COMMENT: 4 stents [...] artery disease); COMMENT: Stents LAD 2000/ D1 2001/ RCA bare metal stent 2012 SAMMIE (obstructive sleep apnea) 05/21/2014 DX :SAMMIE (obstructive sleep apnea); COMMENT: off CPAP after wt loss BPH (benign prostatic hypertrophy) 05/21/2014 DX:BPH (benign prostatic hypertrophy) GERD (gastroesophageal reflux disease) 4 DX:GERD (gastroesophageal reflux disease) Erectile dysfunction 05/21/2014 DX:Erectile dysfunction IgA deficiency, 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, 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[facility]) Impaired fasting glucose 06/02/2014 DX:Impa ired fasting glucose Depression 06/02/2014 DX:Depression Anxiety 06/02/2014 DX:Anxiety TBI (traumatic brain injury) ([facility]) 4 DX:TBI (traumatic brain injury) ([facility]) PTSD (post-traumatic stress disorder) 06/02/2014 DX:PTSD [...] Care Team (Late st Contact Info) Description 11/22/2024 3:00 PM EDT Office Visit Orthopedic Surgery [facility] [place] [address] [facility] [address] [place] [address] Michelle Watson PA [address] [place] [phone] Health Maintenance Due Date Last Done Comments RSV Immunization Adult Patients (1 - Risk 60-74 years 1-dose [...] age to complete this topic Meningococcal B Vaccine Aged Out No l onger eligible based on patient's age to complete this topic RSV Immunization Patients Under 20 months Aged Out No longer eligible based on patient's age to complete this topic Varicella Vaccines Aged Out No longer eligible based on patient's age to complete this topic Procedures Procedure Name Priority Date/Time Associated Diagnosis Comments EMG 1 LIMB Routine 11/05/2024 3:59 PM EDT Paresthesias in left hand LIPID PANEL Routine 08/19/2024 10:07 AM EST Pure hypercholesterolemia ANNUAL BMP BLOOD TEST Routine 10/22/2020 from Last 3 Months or Most Recently Relevant to Health Maintenance Results * EMG one limb (11/05/2024 3:59 PM EDT) Narrative Velma Parker MD - 11/05/2024 4:20 PM EDT Please see the attached report. Procedure Note Velma Parker MD - 11/05/2024 Please see the attached report. us Michelle ORTIZ NEUROLOGY ORDERABLES Final Re sult * Lipid panel (08/19/2024 10:07 AM EST) Cholesterol Total 126 100 - 199 mg/dL [facility] 1 Triglycerides 94 0 - 149 mg/dL [facility] 1 HDL Cholesterol 49 >39 mg/dL [facility] 1 VLDL Cholesterol Calculated 18 5 - 40 mg/dL [facility] 1 LDL Chol Calc ([facility]) 59 0 - 99 mg/dL [facility] 1 Blood Venous blood specimen / Unknown 08/19/2024 10:07 AM EST 08/19/2024 Narrative [facility] 1 - 08/20/2024 3:06 AM EST Performed at: ??01 - [facility] [address] ??[id number] Manager Training: Annette Meier MD, Phone: ??[phone] us Feliciano Evans MD LAB BLOOD ORDERABLES Final Res ult [facility] 1 * Annual BMP Blood Test (10/22/2020) Pathologist [facility] Annual BMP Blood Test abstracted Historical Provider HEALTH MAINTENANCE Final Result from Last 3 Months or Most Recently Relevant to Health Maintenance Insurance [employer] [address] [address] [employer] Care Teams Heel Seat Laster Relationship Specialty Start Date End Date Curt Wiseman MD [address] [place] [phone] PCP - General Family Medicine 07/22/24
--- OUTSIDE RECORDS SUMMARY | 2024-11-12 16:20 | XMS_ITS | Encounter Summary ---
Author Organization [facility] [employer] [facility] Address [address] [place] [address] [address] [place] [address] Care Team Providers Care Cigarette Paper Tester Name Role Phone Unavailable Primary Care Provider Unavailabl e Encounter Details Date Type Department Care Team (Latest Contact Info) Description 10/13/2021 Abstract [facility] CONVERSIONS Dental, Provider, DDS Social History [...] Description 11/13/2024 1:00 PM EDT Office Visit [facility] ADULT DENTAL [address] [place] [address] Alex Burns, JANAK [address] [place] [address] documented as of this encounter Visit Diagnoses Not on filedocumented in this encounter
== END 2024-11-12 14:33 | disposition home or self-care (01) ==
LOC: HO.HSMS 13:25
PROVIDERS: PCP Family Medicine; Visit Provider Nurse Practitioner Family
DX: M54.16 Radiculopathy, lumbar region (principal); R20.2 Paresthesia of skin; M79.672 Pain in left foot; G62.9 Polyneuropathy, unspecified; R20.0 Anesthesia of skin; G25.9 Extrapyramidal and movement disorder, unspecified
CPT/HCPCS: 99214

== ENCOUNTER → 2024-11-12 13:24 | Outpatient (BNVA) | payer MEDICARE, SELFPAY | PROVIDERS: PCP Family Medicine; Visit Provider Nurse Practitioner Family | DX: M54.16 Radiculopathy, lumbar region (principal); R20.2 Paresthesia of skin; M79.672 Pain in left foot; G62.9 Polyneuropathy, unspecified; R20.0 Anesthesia of skin; G25.9 Extrapyramidal and movement disorder, unspecified | CPT/HCPCS: 99212 ==

== ENCOUNTER 2024-11-14 11:50 | Outpatient (AMB) | payer MEDICARE, SELFPAY ==
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
[2024-11-14 11:56] VITALS: BP 120/60; PULSE 65; RESP 14; TEMP 36.8; BMI 29.7
--- OUTSIDE RECORDS SUMMARY | 2024-11-14 14:27 | XMS_ITS | Clinical Summary ---
Author Organization [facility] Address [address] [place] [address] Care Team Providers Care Bakery Machine Mechanic Supervisor Name Role Phone Adeline Locke Primary Care [...] Type Department Care Team Description 09/13/2024 Telephone [facility] Sports Medicine [address] [place], [place] [address] Telephone Intake, Staff PAC Patient Request Call Back_Luke (Pt would like call back in regards preservationist used during surgery back in 2019 with [...] this topic Medical Devices Implanted Type Area Production Generalist Device Identifier Shelf Expiration Date Model / Serial / Lot Baseplate Reverse Shoulder Prosthesis With P2 Coating 30mm - [id number] Implanted:Qty: 1 on 07/12/2019 by Andrew Butler MD at [facility] Implant [employer] 05/03/2025 508-32-204 / / [id number] Head Glenoid With Retaining Screw [place] Shoulder Prosthesis Neutral 32mm - [id number] Implanted:Qty: 1 on 07/12/2019 by Andrew Butler MD at [facility] Implant [employer] 04/09/2025 508-32-101 / / [id number] Insert Socket Humeral Standard Hxe-Plus Rsp Sterile [id number] - [id number] Implanted:Qty: 1 on 07/12/2019 by Andrew Butler MD at [facility] Implant [employer] 05/31/2023 509-00-432 / / [id number] Stem Humeral Standard Reverse Shoulder Prosthesis [id number] - [id number] Implanted:Qty: 1 on 07/12/2019 by Andrew Butler MD at [facility] Implant [employer] 07/12/2024 530-10-108 / / [id number] Screw Locking Reverse Shoulder Prosthesis [id number] - [id number] Implanted:Qty: 1 on 07/12/2019 by Andrew Butler MD at [facility] Screw [employer] 03/24/2025 506-03-130 / / [id number] Screw Locking Bone Reverse Shoulder Prosthesis [id number] - [id number] Implanted:Qty: 1 on 07/12/2019 by Andrew Butler MD at [facility] Screw [employer] 04/19/2025 506-03-122 / / [id number] Screw Locking Reverse Shoulder Prosthesis [id number] - [id number] Implanted:Qty: 1 on 07/12/2019 by Andrew Butler MD at [facility] Screw [employer] 02/27/2025 506-03-130 / / [id number] Insurance [facility] Advance Directives * Full Code (Latest Code Status on File) Date Activated Date Inactivated Comments 07/12/2019 1:40 PM 07/13/2019 8:20 PM * Full Code Date Activated Date Inactivated Comments 07/12/2019 6:13 AM 07/12/2019 1:40 PM Care Teams Bakery Machine Mechanic Supervisor Relationship Specialty Start Date End Date Adeline Locke PCP - General Pediatrics 11/14/17
--- OUTSIDE RECORDS SUMMARY | 2024-11-14 14:27 | XMS_ITS | Referral Summary ---
Author Organization [facility] Address [address] [place] [address] Care Team Providers Care Fitness Services Manager Name Role Phone Adeline Locke Primary Care Provider Unavailable Encounters Date Type Department Care Team Description 09/13/2024 Telephone [facility] Sports Medicine [address] [place] [id number] Telephone Intake, Staff PAC Patient Request Call Back_Luke (Pt would like call back in regards remote broadcast technician used during surgery back in 2019 with [...] on file Medical Devices Implanted Type Area Linoleum Mechanic Device Identifier Shelf Expiration Date Model / Serial / Lot Baseplate Reverse Shoulder Prosthesis With P2 Coating 30mm - [id number] Implanted:Qty: 1 on 07/12/2019 by Andrew Butler MD at [facility] Implant [employer] 05/03/2025 508-32-204 / / [id number] Head Glenoid With Retaining Screw [place] Shoulder Prosthesis Neutral 32mm - [id number] Implanted:Qty: 1 on 07/12/2019 by Andrew Butler MD at [facility] Implant [employer] 04/09/2025 508-32-101 / / [id number] Insert Socket Humeral Standard Hxe-Plus Rsp Sterile [id number] - [id number] Implanted:Qty: 1 on 07/12/2019 by Andrew Butler MD at [facility] Implant [employer] 05/31/2023 509-00-432 / / [id number] Stem Humeral Standard Reverse Shoulder Prosthesis [id number] - [id number] Implanted:Qty: 1 on 07/12/2019 by Andrew Butler MD at [facility] Implant [employer] 07/12/2024 530-10-108 / / [id number] Screw Locking Reverse Shoulder Prosthesis [id number] - [id number] Implanted:Qty: 1 on 07/12/2019 by Andrew Butler MD at [facility] Screw [employer] 03/24/2025 506-03-130 / / [id number] Screw Locking Bone Reverse Shoulder Prosthesis [id number] - [id number] Implanted:Qty: 1 on 07/12/2019 by Andrew Butler MD at [facility] [employer] 04/19/2025 506-03-122 / / [id number] Screw Locking Reverse Shoulder Prosthesis [id number] - [id number] Implanted:Qty: 1 on 07/12/2019 by Andrew Butler MD at [facility] [employer] 02/27/2025 506-03-130 / / [id number] Insurance [facility] Advance Directives * Full Code (Latest Code Status on File) Date Activated Date Inactivated Comments 07/12/2019 1:40 PM 07/13/2019 8:20 PM * Full Code Date Activated Date Inactivated Comments 07/12/2019 6:13 AM 07/12/2019 1:40 PM Care Teams Fitness Services Manager Relationship Specialty Start Date End Date Adeline Locke PCP - General Pediatrics 11/14/17
--- OUTSIDE RECORDS SUMMARY | 2024-11-14 14:27 | XMS_ITS | Encounter Summary ---
Author Organization [facility] Address [address] [place] [address] Care Team Providers Care Cattle Trader Name Role Phone Adeline Guo MD Primary Care Provider [phone]- [phone] Feliciano Evans MD Unavailable Yara Harding MD Unavailable [phone] Curt Wiseman MD Primary Care Provider [phone]- [phone] Encounter Details Date Type Department Care Team (Late st Contact Info) Description 07/19/2024 Telephone [facility] Neurology [address] [phone] Suman Dudley MD [address] [place] [address] [phone] Social History Tobacco Use Types Packs/Day Years [...] Description 12/09/2024 1:00 PM EDT Procedure visit [facility] Neurology [address] [address] Suman Dudley MD [address] [place] [address] documented as of this encounter Visit Diagnoses Not on filedocumented in this encounter Care Teams Cattle Trader Relationship Specialty Start Date End Date Adeline Guo MD [address] [place] [address] PCP - General Internal Medicine 03/10/20 10/13/24 Curt Wiseman MD [address] [place] [address] Dr [place] [facility] [place] [address] PCP - General Family Medicine 10/14/24 Feliciano Evans MD [address] [place] [address] Referring Provider 10/28/20 aYra Harding MD [address] [place] [address] Neurology 03/20/23 Austin Sethi [address] [place] [address] Neurology Neurology 06/07/22 documented as of this encounter
--- OUTSIDE RECORDS SUMMARY | 2024-11-14 14:27 | XMS_ITS | Encounter Summary ---
Author Organization [facility] Address [address] [place] [address] Care Team Providers Care Electrical Power Station Technician Name Role Phone Feliciano Evans MD Unavailable Yara Harding MD Unavailable [phone] Curt Wiseman MD Primary Care Provider [phone]- [phone] Encounter Details Date Type Department Care Team (Late st Contact Info) Description 11/14/2024 Telephone [facility] Neurology [address] [phone] Suman Dudley MD [address] [place] [address] Social History Tobacco Use Types Packs/Day Years [...] encounter Miscellaneous Notes * Telephone Encounter - Vickie Coronel - 11/14/2024 11:57 AM EDT Called Bj to offer sooner DBS - 11/18 @ 1pm. Appt is on hold, please offer when he calls back. documented in this encounter Plan of Treatment Upcoming Encounters Date Type Department Care Team (Late st Contact Info) Description 12/09/2024 1:00 PM EDT Procedure visit [facility] Neurology [place] [address] [facility] [address] [place] [address] Suman Dudley MD [address] [address] documented as of this encounter Visit Diagnoses Not on filedocumented in this encounter Care Teams Electrical Power Station Technician Relationship Specialty Start Date End Date Curt Wiseman MD [address] [place] [address] Dr Garcia [address] [place] [address] PCP - General Family Medicine 10/14/24 Feliciano Evans MD Referring Provider 10/28/20 Yara Harding MD Neurology 03/20/23 Austin Sethi [address] [place] [address] Neurology Neurology 06/07/22 documented as of this encounter
--- OUTSIDE RECORDS SUMMARY | 2024-11-14 14:27 | XMS_ITS | Encounter Summary ---
Author Organization [facility] Address [address] [place] [address] Care Team Providers Care Net Maker Name Role Phone Adeline Guo MD Primary Care Provider [phone]- [phone] Feliciano Evans MD Unavailable Yara Harding MD Unavailable [phone] Curt Wiseman MD Primary Care Provider [phone]- [phone] Encounter Details Date Type Department Care Team (Late Contact Info) Description 08/05/2020 Scanned Document [facility] Neurosurgery [address] [phone] Monroe Choi MD [address] [place] [phone] Social History Tobacco Use Types Packs/Day Years [...] Description 12/09/2024 1:00 PM EDT Procedure visit [facility] Neurology [address] [phone] Suman Dudley MD [address] [place] [address] documented as of this encounter Visit Diagnoses Not on filedocumented in this encounter Care Teams Net Maker Relationship Specialty Start Date End Date Adeline Guo MD [address] [place] [address] PCP - General Internal Medicine 03/10/20 10/13/24 Curt Wiseman MD [address] [place] [address] Dr Garcia [facility] [place] [address] PCP - General Family Medicine 10/14/24 Feliciano Evans MD [address] [place] [address] Referring Provider 10/28/20 Yara Harding MD [address] [place] [address] Neurology 03/20/[address] [address] Neurology Neurology 06/07/22 documented as of this encounter
--- OUTSIDE RECORDS SUMMARY | 2024-11-14 14:27 | XMS_ITS | Continuity of Care Document ---
Author Organization [facility] Address [address] [place] [address] Care Team Providers Care Bender Machine Name Role Phone Curt Wiseman MD Primary Care Provider Encounters Date Type Department Care Team Description 10/14/2023 [facility] Neurology [address] [facility] [address] [place] [phone] Austin Sethi MD E-prescribing Refill Request 10/10/2023 Refill [facility] Neurology [address] [facility] [address] [place] [address] Austin Sethi MD Refill Request 06/25/2023 Refill [facility] Neurology [address] [facility] [address] [place] [address] Austin Sethi MD Med Change Request; Refill Request 05/22/2023 Refill [facility] Neurology [address] [facility] [address] [place] [address] Austin Sethi MD E-prescribing Refill Request 03/20/2023 Telephone [facility] Neurology [address] [facility] [address] [place] [address] Austin Sethi MD Medication Check 02/20/2023 Refill [facility] Neurology [address] [facility] [address] [place] [address] Austin Sethi MD E-prescribing Refill Request 01/10/2023 Refill [facility] Neurology [address] [facility] [address] [place] [address] Austin Sethi MD E-prescribing Refill Request 08/08/2022 Refill [facility] Neurology [address] [facility] [address] [place] [address] Austin Sethi MD E-prescribing Refill Request 07/25/2022 Telephone [facility] Neurology [address] [facility] [address] [place] [address] Austin Sethi MD Appointment 06/07/2022 4:30 PM EDT Office Visit [facility] Neurology [address] [facility] [address] [place] [address] Austin Sethi MD Essential tremor (Primary Dx) 05/23/2022 Refill [facility] Neurology [address] [facility] [address] [place] [address] Austin Sethi MD E-prescribing Refill Request 03/11/2022 Telephone [facility] Neurology [address] [facility] [address] [place] [address] Austin Sethi MD Follow Up 03/07/2022 8:15 AM EDT Office Visit [facility] Neurology [address] [facility] [address] [place] [address] Austin Sethi MD Essential tremor (Primary Dx) 02/22/2022 Telephone [facility] Neurology [address] [facility] [address] [place] [address] Austin Sethi MD Appointment 01/19/2022 Telephone [facility] Neurology [address] [facility] [address] [place] [address] Austin Sethi MD Follow Up 12/24/2021 Refill [facility] Neurology [address] [facility] [address] [place] [address] Austin Sethi MD 12/11/2021 Refill [facility] Neurology [address] [facility] [address] [place] [address] Austin Sethi MD E-prescribing Refill Request 11/15/2021 Telephone [facility] Neurology [address] [facility] [address] [place] [address] Austin Sethi MD Follow Up (DBS adjustment ) 10/29/2021 4:00 PM EDT Office Visit [facility] Neurology [address] [facility] [address] [place] [address] Austin Sethi MD Essential tremor (Primary Dx) 10/28/2021 Refill [facility] Neurology [address] [facility] 230 [place] [address] Toma Salas MD E-prescribing Refill Request 09/26/2021 Refill [facility] Neurology [address] [facility] 230 [place] [address] Austin Sethi MD E-prescribing Refill Request 09/12/2021 Refill [facility] Neurology [address] [facility] [address] [place] [address] Austin Sethi MD E-prescribing Refill Request 07/23/2021 Telephone [facility] Neurology [address] [facility] [address] [place] [address] Lorna Prado, SONALI Appointment 05/03/2021 3:30 PM EDT Office Visit [facility] Neurology [address] [facility] [address] [place] [address] Austin Sethi MD Essential tremor (Primary Dx) 04/16/2021 Telephone [facility] Neurology [address] [facility] 230 [place] [address] Austin Sethi MD Appointment 01/29/2021 4:45 PM EDT Office Visit [facility] Neurology [address] [facility] [address] [place] [address] Austin Sethi MD Essential tremor (Primary Dx) 12/31/2020 Telephone [facility] Neurology [address] [facility] [address] [place] [address] Austin Sethi MD Follow Up (DBS) 12/25/2020 Telephone [facility] Neurology [address] [facility] 230 [place] [address] Austin Sethi MD Medication Problem (Lorazepam) 12/24/2020 Telephone [facility] Neurology [address] [facility] 230 [place] [address] Austin Sethi MD Prior Authorization Request (lorazepam) 12/22/2020 Travel 12/22/2020 4:30 PM EDT Office Visit [facility] Neurology [address] [facility] 230 [place] [address] Austin Sethi MD Essential tremor (Primary Dx); PTSD (post-traumatic stress disorder) 12/15/2020 Refill [facility] Neurology [address] [facility] 230 [place] [address] Austin Sethi MD Refill Request (Xanax 0.25) 12/10/2020 10:30 AM EDT Office Visit [facility] Neurology [address] [facility] 230 [place] [address] Austin Sethi MD Essential tremor (Primary Dx) 12/09/2020 Telephone [facility] Neurology [address] [facility] 230 [place] [address] Austin Sethi MD Follow Up (DBS) 12/08/2020 Travel 12/08/2020 8:00 AM EDT Office Visit [facility] Neurology [address] [facility] 230 [place] [address] Austin Sethi MD Essential tremor (Primary Dx) 11/25/2020 Telephone [facility] Neurology [address] [facility] 230 [place] [address] Austin Sethi MD Other 10/30/2020 Refill [facility] Neurology [address] [facility] 230 [place] [address] Austin Sethi MD E-prescribing Refill Request 10/30/2020 Telephone [facility] Neurology [address] [facility] [address] [place] [address] Austin Sethi MD Medication Problem (primidone) 10/20/2020 Travel 10/20/2020 8:00 AM EDT Consult (Initial) [facility] Neurology [address] [facility] [address] [place] [address] Austin Sethi MD Essential tremor (Primary Dx) 10/01/2020 Telephone [facility] Neurology [address] [facility] 230 [place] [address] Austin Sethi MD Appointment 03/13/2018 Orders Only [facility] Cardiology [address] [facility] 290 [place] [address] Jorge Pascual DO 03/13/2018 Orders Only [facility] Pre-Admission Testing [address] [address] Yamilex Langston NP 03/13/2018 3:30 PM EDT Office Visit [facility] Pre-Admission Testing [address] [address] Yamilex Langston NP Preop examination (Primary Dx); Gastroesophageal reflux disease, esophagitis presence not specified; Hyperlipidemia, unspecified hyperlipidemia type; Hypertension, unspecified type; Benign prostatic hyperplasia, unspecified whether lower urinary tract symptoms present; Mood disorder; RLS (restless legs syndrome); SAMMIE (obstructive sleep apnea) 03/13/2018 3:00 PM EDT Nurse Visit [facility] Pre-Admission Testing [address] [address] Poonam Pedersen, RN Gastroesophageal reflux disease, esophagitis presence not specified (Primary Dx) 02/19/2018 2:45 PM EDT Consult (Initial) [facility] General Surgery [address] [facility] [address] [place] [address] Trevor Lo MD Gastroesophageal reflux disease without [...] problems Social History Smoking Status as of 11/14/2024 Tobacco Use Types Packs/Day Years Used Date [...] Not on file Procedures * Due to [place] state law, this organization might not be [...] XRAY ESOPHAGUS 11/14/2017 Results * Due to [place] state law, this organization might not be [...] EDT 03/13/2018 8:44 PM EDT Yamilex Langston MANUFACTURING MANAGEMENT ASSOCIATE CARDIOVASCULAR-WITH INBSK T RTG Final Result [facility] * PROTHROMBIN TIME (PT) (INR), BLOOD (03/13/2018 4:11 PM EDT) INR 1.0 [facility] Comment: Reference Range ? 0.9-1.1 Moderate-intensity Warfarin Therapy 2.0-3.0 Higher-intensity Warfarin Therapy ?? 3.0-4.0 PT 10.7 9.0 - 11.5 sec [facility] Comment: For more information on this test, go to: [email or web address]/faq/[email or web address] 03/13/2018 4:11 PM EDT 03/13/2018 9:37 PM EDT Narrative Resulting Agency Comment [id number] Yamilex Langston MANUFACTURING MANAGEMENT ASSOCIATE LAB SAME DAY RESULT Final Result [facility] [address] [place] [address] * CBC INCLUDES DIFFERENTIAL AND PLATELET COUNT (03/13/2018 4:11 PM EDT) Pathologist [facility] WBC 5.2 3.8 - 10.8 Thousand/u L [...] 9:37 PM EDT Narrative Resulting Agency Comment [id number] Yamilex Langston MANUFACTURING MANAGEMENT ASSOCIATE LAB SAME DAY RESULT Final Result Performing Organization Address City/State/[facility] Co de Phone Number [facility] [address] [place] [address] * HEPATIC FUNCTION PANEL (ALT,AST,ALK PH,BILI'S,TP,ALB) (03/13/2018 4:11 PM EDT) Pathologist [facility] Protein Total (Serum) 6.7 6.1 - 8.1 [...] 9:37 PM EDT Narrative Resulting Agency Comment [id number] Yamilex Langston MANUFACTURING MANAGEMENT ASSOCIATE LABORATORY Final Res ult [facility] [address] [place] [address] * BASIC METABOLIC PANEL WITH (GFR) (03/13/2018 4:11 PM EDT) Glucose 98 65 - 99 mg/dL [facility] Comment:Fasting reference in terval Urea Nitrogen Blood (BUN) 20 7 - 25 mg/dL [facility] Creatinine 1.05 0.70 - 1.25 mg/dL [facility] Comment: For patients >49 years of age, the reference limit for Creatinine is approximately 13% higher for people identified as -Lao. GFR 74 > OR = 60 mL/min/1 [...] needs for GFR calculation. Resulting Agency Comment [id number] us Yamilex Langston MANUFACTURING MANAGEMENT ASSOCIATE LABORATORY Final Res ult [facility] [address] [place] [address] * XRAY ESOPHAGUS (11/14/2017) 11/14/2017 us Pricila [...] specified forms of tremor 06/07/2022 Care Teams Bender Machine Relationship Specialty Start Date [place] [address] PCP - General Family Medicine 02/10/21
--- OUTSIDE RECORDS SUMMARY | 2024-11-14 14:27 | XMS_ITS | Clinical Summary ---
Author Organization [facility] Address [address] [place] [address] Care Team Providers Care Receptionist Name Role Phone Feliciano Evans MD Unavailable [...] By: KRISHNA FAGAN Comment: Entered automatically through [employer] Problem List documentation program Feb 20, 2024 Entered By: REJI BERNARD Comment: Agent [place] Registry Exam 02/20/24 Feb 20, 2024 Entered By: REJI BERNARD Comment: Agent [place] Exposure, [facility], [facility] 1969- Generalized abdominal pain 10/14/2024 Melena [...] deep brain stimulator placement 02/04 Overview (09/24/2021): [employer], Linear lead, right chest Postoperative visit [...] [place] Comment: seen by urology 02/22 sierra figueredo d/t [place] Encounters Date Type Department Care Team Description 11/14/2024 Telephone [facility] Neurology [address] [address] Suman Dudley MD 10/29/2024 Telephone [facility] Neurology [address] [address] Suman Dudley MD Other 10/14/2024 1:00 PM EDT Consult [facility] Neurology [address] [address] Suman Dudley MD Essential tremor (Primary Dx); Status post deep brain stimulator placement 10/14/2024 Telephone [facility] Neurology [address] [address] Suman Dudley MD 10/14/2024 Travel 10/03/2024 Telephone [facility] Neurology [address] [address] Suman Dudley MD 09/09/2024 1:00 PM EST Consult [facility] Neurology [address] [address] Suman Dudley MD Essential tremor (Primary Dx); [...] Description 12/09/2024 1:00 PM EDT Procedure visit [facility] Neurology [address] [place] [address] Suman Dudley MD 35 [facility] 6 [place] [address] Health Maintenance Due Date Last Done Comments [...] this topic Medical Devices Implanted Type Area Public Health Assistant Device Identifier Shelf Expiration Date Model / Serial / Lot [id number] Extension Neurostimulator 60cm 1.3-3.8mm 1.5mm Std Qdpl Dist - [id number] Implanted:Qty: 1 on 11/25/2020 by Monroe Choi MD at [facility] Cerebral [employer] MINIMALLY INVASIVE T 09/10/2023 [id number] / [id number] / [id number] Extension Neurostimulator 60cm 1.3-3.8mm 1.5mm Std Qdpl Dist - [id number] Implanted:Qty: 1 on 11/25/2020 by Monroe Choi MD at [facility] Cerebral [employer] MINIMALLY INVASIVE T 01/31/2024 [id number] / [id number] / [id number] Screw Bone Mdfc 5mm 1.5mm Self Drill Htorq Xdr Grn [place] - [id number] Implanted:Qty: 4 on 11/04/2020 by Monroe Choi MD at [facility] Maxillofacial Cranial [employer] [id number] / / [id number] Lead Neurostimulator Strg Cylinder Firm Deep Brn Stm - [id number] Implanted:Qty: 1 on 11/04/2020 by Monroe Choi MD at [facility] Stimulator Right: Brain [employer] MINIMALLY INVASIVE T 05/25/2024 [id number]-40 / / [id number]-40 Lead Neurostimulator Strg Cylinder Firm Deep Brn Stm - [id number] Implanted:Qty: 1 on 11/04/2020 by Monroe Choi MD at [facility] Stimulator [employer] MINIMALLY INVASIVE T 3387S-40 / / [id number] Neurostimulator Implantable 68mm X 51mm Percept 2 Chnl 61g - [id number] Implanted:Qty: 1 on 11/25/2020 by Monroe Choi MD at [facility] Stimulator [employer] MINIMALLY INVASIVE T 08/20/2022 [id number] / [id number] 1H / [id number] Environmental Health Nurse Neurostimulator Patient Percept Pc Device - [id number] Implanted:Qty: 1 on 11/25/2020 by Monroe Choi MD at [facility] Stimulator [employer] MINIMALLY INVASIVE T [id number] / / [id number] Kit Stimulator Tunnel Deep Brn Stm - [id number] Implanted:Qty: 1 on 11/25/2020 by Monroe Choi MD at [facility] Stimulator [employer] MINIMALLY INVASIVE T [id number] / / [id number] Filler Bone Void 10cc 20cc Calcium Slf Stimulan Rpd Cure Kit - [id number] Implanted:Qty: 1 on 11/04/2020 by Monroe Choi MD at [facility] Void Filler N/A: Brain [employer] 12/04/2022 620-010 / / [id number] 620-010 Filler Bone Void 10cc 20cc Calcium Slf Stimulan Rpd Cure Kit - [id number] Implanted:Qty: 1 on 11/25/2020 by Monroe Choi MD at [facility] Void Filler Right: Chest [employer] 12/04/2022 620-010 / / [id number] Description:mixed with 1 gm vancomycin powder and 1.2gm tobramycin powder Explanted Type Area Public Health Assistant Device Identifier Shelf Expiration Date Model / Serial / Lot 70-It-Ar5p Electrode Neurostimulator Star [employer] Dzap - [id number] Explanted:Qty: 1 on 11/04/2020 by Monroe Choi MD at [facility] Stimulator Brain [employer] 10/15/2021 70-IT-AR 5P / / [id number] 66-It-Ar4p Electrode Neurostimulator Microtargeting Unilateral - [id number] Explanted:Qty: 1 on 11/04/2020 by Monroe Choi MD at [facility] Stimulator Brain [employer] 02/25/2023 66-IT-AR 4P / / [id number] Cable Neurostimulator Twstlk Scrn Sterl Lf - [id number] Explanted:Qty: 1 on 11/04/2020 by Monroe Choi MD at [facility] Stimulator Right: Brain [employer] MINIMALLY INVASIVE T 09/03/2024 3550-68 / / [id number] Description:NOT AN IMPLANT Advance Directives * Full Code (Latest Code Status on File) Date Activated Date Inactivated Comments 11/25/2020 8:30 AM * Full Code Date Activated Date Inactivated Comments 11/04/2020 4:31 PM 11/25/2020 7:56 AM Care Teams Receptionist Relationship Specialty Start Date End Date Curt Wiseman MD [address] [place] [address] [place] [address] PCP - General Family Medicine 10/14/24 Feliciano Evans MD Referring Provider 10/28/20 Yara Harding MD Neurology 03/20/23 Austin Sethi [address] [place] [address] Neurology Neurology 06/07/22
--- OUTSIDE RECORDS SUMMARY | 2024-11-14 14:27 | XMS_ITS | Encounter Summary ---
Author Organization [facility] Address [address] [place] [address] Care Team Providers Care Creel Cleaner Name Role Phone Adeline Guo MD Primary Care Provider [phone]- [phone] Feliciano Evans MD Unavailable Yara Harding MD Unavailable [phone] Curt Wiseman MD Primary Care Provider [phone]- [phone] Encounter Details Date Type Department Care Team ([facility] Contact Info) Description 05/20/2021 Scanned Document [facility] Neurosurgery [place] [address] [facility] [address] [place] [address] Monroe Choi MD 85 [facility] [place] [address] [place] [phone] Social History Tobacco Use Types Packs/Day Years [...] Upcoming Encounters Date Type Department Care Team ([facility] Contact Info) Description 12/09/2024 1:00 PM EDT Procedure visit [facility] Neurology [place] 35 [facility] [address] [place] [phone] Suman Dudley MD [address] [address] documented as of this encounter Visit Diagnoses Not on filedocumented in this encounter Care Teams Creel Cleaner Relationship Specialty Start Date End Date Adeline Guo MD [address] [place] [address] PCP - General Internal Medicine 03/10/20 10/13/24 Curt Wiseman MD [address] [place] [address] Dr Garcia [address] [place] [address] PCP - General Family Medicine 10/14/24 Feliciano Evans MD [address] [place] [address] Referring Provider 10/28/20 Yara Harding MD [address] [place] [address] Neurology 03/20/23 Austin Sethi [address] [place] [address] Neurology Neurology 06/07/22 documented as of this encounter
--- OUTSIDE RECORDS SUMMARY | 2024-11-14 14:27 | XMS_ITS | Encounter Summary ---
Author Organization [facility] Address [address] [place] [address] Care Team Providers Care Assembly Hand Name Role Phone Adeline Guo MD Primary Care Provider +1- [phone] Feliciano Evans MD Unavailable Yara Harding MD Unavailable [phone] Curt Wiseman MD Primary Care Provider +1- [phone] Encounter Details Date Type Department Care Team ([facility] st Contact Info) Description 11/26/2020 Prep for Surgery [facility] Pre-Admission Testing [facility] 85 [facility] [address] [place] [address] Mariama Allred, RESIDENT HALL DIRECTOR [address] [place] [address] Social History Tobacco Use Types [...] Description 12/09/2024 1:00 PM EDT Procedure visit [facility] 35 [facility] [address] [place] [address] Suman Dudley MD [address] [address] documented as of this encounter Visit Diagnoses Not on filedocumented in this encounter Care Teams Assembly Hand Relationship Specialty Start Date End Date Adeline Guo MD [address] [place] [address] PCP - General Internal Medicine 03/10/20 10/13/24 Curt Wiseman MD [address] [place] [address] [address] PCP - General Family Medicine 10/14/24 Feliciano Evans MD [address] [place] [address] Referring Provider 10/28/20 Yara Harding MD [address] [place] [address] Neurology 03/20/23 Austin Sethi [address] [place] [address] Neurology Neurology 06/07/22 documented as of this encounter
--- OUTSIDE RECORDS SUMMARY | 2024-11-14 14:27 | XMS_ITS | Encounter Summary ---
Author Organization [facility] Address [address] [place] [address] Care Team Providers Care Fingerprint Expert Name Role Phone Adeline Guo MD Primary Care Provider +1- [phone] Feliciano Evans MD Unavailable Yara Harding MD Unavailable [phone] Curt Wiseman MD Primary Care Provider [phone]- [phone] Encounter Details Date Type Department Care Team (Late Contact Info) Description 10/28/2021 Scanned Document [facility] Neurosurgery [address] [place] [address] Monroe Choi MD [address] [place] [address] Social History Tobacco Use Types Packs/Day [...] Description 12/09/2024 1:00 PM EDT Procedure visit [facility] Neurology [address] [place] [address] Suman Dudley MD 35 [facility] [address] [place] [address] documented as of this encounter Visit Diagnoses Not on filedocumented in this encounter Care Teams Fingerprint Expert Relationship Specialty Start Date End Date Adeline Guo MD [address] [place] [address] PCP - General Internal Medicine 03/10/20 10/13/24 Curt Wiseman MD [address] [place] [address] [place] [address] PCP - General Family Medicine 10/14/24 Feliciano Evans MD [address] [place] [address] Referring Provider 10/28/20 Yara Harding MD [address] [place] [address] Neurology 03/20/23 Austin Sethi [address] [place] [address] Neurology Neurology 06/07/22 documented as of this encounter
--- OUTSIDE RECORDS SUMMARY | 2024-11-14 14:27 | XMS_ITS | Encounter Summary ---
Author Organization [facility] Address [address] [place] [address] Care Team Providers Care Call Center Dispatcher Name Role Phone Adeline Locke Primary Care Provider Unavailable Reason for Visit * Reason Onset Date Comments Neurology apt with Dr. Kitchen 11/30/2021 Encounter Details Date Type Department Care Team (Late st Contact Info) Description 11/30/2021 Telephone [facility] [address] [place] [address] [phone] Telephone Intake, Staff Neurology apt with Dr. [...] scheduling. A good call back number is [phone]. documented in this encounter Plan of Treatment Not on file documented as of this encounter Visit Diagnoses Not on filedocumented in this encounter Care Teams Call Center Dispatcher Relationship Specialty Start Date End Date Adeline Locke PCP - General Pediatrics 11/14/17 documented as of this encounter
--- OUTSIDE RECORDS SUMMARY | 2024-11-14 14:28 | XMS_ITS | Encounter Summary ---
Author Organization [employer] [facility] Address [address] [place] [address] 7 [place] [address] Care Team Providers Care Home Economics Extension Worker Name Role Phone Unavailable Primary Care Provider Unavailabl e Reason for Visit * Reason Onset Date Comments Med Refill 11/12/2024 Encounter Details Date Type Department Care Team (Late st Contact Info) Description 11/12/2024 Refill [facility] ADULT DENTAL [address] [place] [address] Rocío Castillo, DDS [address] [place] [address] Social History Tobacco Use Types Packs/Day Years [...] Care Team (Late st Contact Info) Description 11/27/2024 2:00 PM EDT Office Visit [facility] ADULT DENTAL [address] [place] [address] Rocío Castillo, DDS [address] [place] [address] documented as of this encounter Visit Diagnoses Not on filedocumented in this encounter
--- OUTSIDE RECORDS SUMMARY | 2024-11-14 14:28 | XMS_ITS | Encounter Summary ---
Author Organization [facility] Address [address] [place] [address] Care Team Providers Care Belt Repairer Name Role Phone Adeline Guo MD Primary Care Provider [phone]- [phone] Feliciano Evans MD Unavailable Yara Harding MD Unavailable [phone] Curt Wiseman MD Primary Care Provider [phone]- [phone] Encounter Details Date Type Department Care Team ([facility] st Contact Info) Description 05/31/2022 Scanned Document [facility] Neurosurgery [place] 85 [facility] [address] [place] [address] Monroe Choi MD 85 [facility] [place] [address] [place] [phone] Social History Tobacco Use Types Packs/Day Years [...] EDT Procedure visit [facility] 35 [facility] [address] [place] [address] Suman Dudley MD [address] [address] documented as of this encounter Visit Diagnoses Not on filedocumented in this encounter Care Teams Belt Repairer Relationship Specialty Start Date End Date Adeline Guo MD [address] [place] [address] PCP - General Internal Medicine 03/10/20 10/13/24 Curt Wiseman MD [address] [place] [address] [address] PCP - General Family Medicine 10/14/24 Feliciano Evans MD [address] [place] [address] Referring Provider 10/28/20 Yara Harding MD [address] [place] [address] Neurology 03/20/23 Austin Sethi [address] [place] [address] Neurology Neurology 06/07/22 documented as of this encounter
--- OUTSIDE RECORDS SUMMARY | 2024-11-14 14:28 | XMS_ITS | Patient Health Record ---
Author Organization [facility] Address [address] [place] [address] Care Team Providers Care Instructor Watch Assembly Name Role Phone Adeline Guo Primary Care Provider Pricila Valenzuela Unavailable [phone] REASON FOR REFERRAL No Information MEDICATIONS Medication [...] GENERALIZED (789.07) Active confirmed Generalized abdominal pain (858757528) Problem Diarrhea (787.91) Active confirmed Diarrhea (13867076) Problem Vomiting (787.03) Active confirmed Vomiting (681839943) Problem Abnormal loss of weight (783.21) Active confirmed Abnormal weight loss (367243601) Problem GERD [Gastroesophage al reflux disease] (530.81) Active confirmed Gastroesophagea l reflux disease (disorder) (469998810) Problem Projectile vomiting with nausea (R11.12) Active confirmed Vomiting (263649750) Problem Diarrhea, unspecified type (R19.7) Active confirmed Diarrhea (80522781) Problem Chronic GERD (K21.9) Active confirmed 731545725 Problem Slow transit constipation (K59.01) Active confirmed 10915083 Problem Intractable cyclical vomiting with nausea (G43.A1) Active confirmed 91463529 Problem Barretts esophagus without dysplasia (K22.70) Active confirmed 610329239 Problem Bleeding per rectum (K62.5) Active confirmed 22033754 PLAN OF TREATMENT Pending Test Test Name Order Date *[facility] Exam, Routine 03/31/2015 MRI:ENTEROGRAPHY 03/31/2015 Gastric emptying study 03/31/2015 CT Abdomen Pelvis with contrast 08/05/20 16 Insurance Providers Payer Name Payer Address Payer Phone Subscriber Number Group Number Insured Name Patient Relationship to Insured Coverage Start Date Coverage End Date [place] B [place] [employer] [place] [facility] [address] [place] [address] [id number] THALIA DANIELSON Self - patient is the insured Medicaid OF [facility] [address] [place] [address] [id number] THALIA DANIELSON Self - patient is the insured MEDICAL (GENERAL) HISTORY Medical History History ICD Code Hypertension Coronary artery disease s/p PCI Depression/ anxiety Hyperlipidemia Surgical History Surgery Date(Month/Year) cardiac stents
--- OUTSIDE RECORDS SUMMARY | 2024-11-14 14:28 | XMS_ITS | Encounter Summary ---
Author Organization [facility] Address [address] [place] [address] Care Team Providers Care Drafter Electromechanical Name Role Phone Pcp, No Primary Care Provider UnavailAdeline Lancaster MD Primary Care Provider +1- [phone] Feliciano Evans MD Unavailable Yara Harding MD Unavailable [phone] Curt Wiseman MD Primary Care Provider Encounter Details Date Type Department Care Team (Late st Contact Info) Description 02/25/[address] [facility] [place]surgery [place] 85 [facility] [address] [place] [phone] Monroe Choi MD [address] [place] [address] [address] Social History Tobacco Use Types Packs/Day Years [...] Description 12/09/2024 1:00 PM EDT Procedure visit [facility] Neurology [address] [phone] Suman Dudley MD [address] [place] [address] [place] [address] documented as of this encounter Visit Diagnoses Not on filedocumented in this encounter Care Teams Drafter Electromechanical Relationship Specialty Start Date End Date Pcp, No [address] [place] [address] PCP - General 11/26/18 03/09/20 Adeline Guo MD [address] [place] [address] PCP - General Internal Medicine 03/10/20 10/13/24 Curt Wiseman MD [address] [place] [address] PCP - General Family Medicine 10/14/24 Feliciano Evans MD [address] [place] [address] Referring Provider 10/28/20 Yara Harding MD [address] [place] [address] Neurology 03/20/23 Austin Sethi [address] [place] [address] Neurology Neurology 06/07/22 documented as of this encounter
--- OUTSIDE RECORDS SUMMARY | 2024-11-14 14:28 | XMS_ITS | Encounter Summary ---
Author Organization [facility] Address [address] [place] [address] Care Team Providers Care Clay Processing Factory Worker Name Role Phone Adeline Guo MD Primary Care Provider [phone]- [phone] Curt Wiseman MD Primary Care Provider [phone] Encounter Details Date Type Department Care Team (Late st Contact Info) Description 03/13/2018 Orders Only [facility] Pre-Admission Testing [address] [facility] [address] [place] [address] Yamilex Langston NP Social History Tobacco Use [...] of this encounter Procedures * Due to [place] state law, this organization might not be [...] in this encounter Results * Due to [place] state law, this organization might not be [...] 03/13/2018 8:44 PM EDT us Yamilex Langston POLICE INVESTIGATOR CARDIOVASCULAR-WITH INBSK T RTG Final Result [facility] * PROTHROMBIN TIME (PT) (INR), BLOOD (03/13/2018 4:11 PM EDT) INR 1.0 [facility] Comment: Reference Range ? 0.9-1.1 Moderate-intensity Warfarin Therapy 2.0-3.0 Higher-intensity Warfarin Therapy ?? 3.0-4.0 PT 10.7 9.0 - 11.5 sec [facility] Comment: For more information on this test, go to: http://education.Appsindep/faq/ROV602 03/13/2018 4:11 PM EDT 03/13/2018 9:37 PM EDT Narrative Resulting Agency Comment [id number] Yamilex Langston POLICE INVESTIGATOR LAB SAME DAY RESULT Final Result [facility] [address] [place] [address] * HEPATIC FUNCTION PANEL (ALT,AST,ALK PH,BILI'S,TP,ALB) (03/13/2018 [...] 9:37 PM EDT Narrative Resulting Agency Comment [id number] Yamilex Langston POLICE INVESTIGATOR LABORATORY Final Res ult [facility] [address] [place] [address] * CBC INCLUDES DIFFERENTIAL AND PLATELET COUNT [...] 9:37 PM EDT Narrative Resulting Agency Comment [id number] Yamilex Langston POLICE INVESTIGATOR LAB SAME DAY RESULT Final Result [facility] [address] [place] [address] * BASIC METABOLIC PANEL WITH (GFR) (03/13/2018 4:11 PM EDT) Glucose 98 65 - 99 mg/dL [facility] Comment:Fasting reference in terval Urea Nitrogen Blood (BUN) 20 7 - 25 mg/dL [facility] Creatinine 1.05 0.70 - 1.25 mg/dL [facility] Comment: For patients >49 years of age, the reference limit for Creatinine is approximately 13% higher for people identified as -Filipino. GFR 74 > OR = 60 mL/min/1 [...] needs for GFR calculation. Resulting Agency Comment [id number] Yamilex Langston NP LABORATORY Final Res ult [facility] [address] [place] [address] documented in this encounter Visit Diagnoses Diagnosis Preop examination Preoperative examination, unspecified Gastroesophageal reflux disease, esophagitis presence not specified Hyperlipidemia, unspecified hyperlipidemia type Hypertension, unspecified type Benign prostatic hyperplasia, unspecified whether lower urinary tract symptoms present Mood disorder Unspecified episodic mood disorder RLS (restless legs syndrome) Restless legs syndrome (RLS) documented in this encounter Care Teams Clay Processing Factory Worker Relationship Specialty Start Date End Date Adeline Guo MD [address] [id number] PCP - General Internal Medicine 11/30/17 02/09/21 Curt Wiseman MD [address] [address] PCP - General Family Medicine 02/10/21 documented as of this encounter
--- OUTSIDE RECORDS SUMMARY | 2024-11-14 14:28 | XMS_ITS | Encounter Summary ---
Author Organization [facility] Address [address] [place] [address] Care Team Providers Care Welder Fitter Gas Name Role Phone Adeline Guo MD Primary Care Provider +1- [phone] Feliciano Evans MD Unavailable Yara Harding MD Unavailable [phone] Curt Wiseman MD Primary Care Provider [phone] Reason for Referral * Surgical (Routine) - Closed Specialty Diagnoses / Procedures Referred By Tamika t Referred To Contact Anesthesiology Diagnoses Benign essential tremor Monroe Choi MD [address] [place] [address] [address] [place] [address] Referral ID Status Reason Start Date Expiration Date V isits Requested Visits Authorized [id number] Closed Specialty Services Required 11/14/2020 11/15/2021 1 1 Encounter Details Date Type Department Care Team (Late st Contact Info) Description 10/26/2020 Prep for Surgery [facility] Neurosurgery [place] 35 [facility] [address] [place] [address] Emilee Brewer RN [address] [place] [address] Benign essential tremor (Primary Dx) Social History [...] Description 12/09/2024 1:00 PM EDT Procedure visit [facility] Neurology [address] [address] Suman Dudley MD [address] [place] [address] Scheduled Referrals Name Type Priority Associated Diagnoses Order Schedule Ambulatory referral to Anesthesiology Outpatient Referral Routine Benign essential tremor Ordered: 11/14/2020 documented as of this encounter Visit Diagnoses Diagnosis Benign essential tremor- Primary Essential and other specified forms of tremor documented in this encounter Care Teams Welder Fitter Gas Relationship Specialty Start Date End Date Adeline Guo MD [address] [place] [address] PCP - General Internal Medicine 03/10/20 10/13/24 Curt Wiseman MD [address] [place] [address] [address] [place] [address] PCP - General Family Medicine 10/14/24 Feliciano Evans MD [address] [place] [address] Referring Provider 10/28/20 Yara Harding MD [address] [place] [address] [id number] Neurology 03/20/23 Austin Sethi [address] [place] [address] Neurology Neurology 06/07/22 documented as of this encounter
--- OUTSIDE RECORDS SUMMARY | 2024-11-14 14:28 | XMS_ITS | Encounter Summary ---
Author Organization [facility] Address [address] [place] [address] Care Team Providers Care Airport Operations Specialist Name Role Phone Adeline Guo MD Primary Care Provider +1- [phone] Feliciano Evans MD Unavailable Yara Harding MD Unavailable [phone] Curt Wiseman MD Primary Care Provider [phone]- [phone] Encounter Details Date Type Department Care Team (Late Contact Info) Description 05/20/2020 Scanned Document [address] [place] [address] Provider, Generic Social History Tobacco Use [...] Encounters Date Type Department Care Team ([facility] Contact Info) Description 12/09/2024 1:00 PM EDT Procedure visit [facility] Neurology [address] [place] [address] Suman Dudley MD [address] [place] [address] [place] [address] documented as of this encounter Visit Diagnoses Not on filedocumented in this encounter Care Teams Airport Operations Specialist Relationship Specialty Start Date End Date Adeline Guo MD [address] [place] [address] PCP - General Internal Medicine 03/10/20 10/13/24 Curt Wiseman MD [address] [place] [address] PCP - General Family Medicine 10/14/24 Feliciano Evans MD [address] [place] [address] Referring Provider 10/28/20 Yara Harding MD [address] [place] [address] Neurology 03/20/23 Austin Sethi [address] [place] [address] Neurology Neurology 06/07/22 documented as of this encounter
--- OUTSIDE RECORDS SUMMARY | 2024-11-14 14:28 | XMS_ITS | Encounter Summary ---
Author Organization [facility] Address [address] [place] [address] Care Team Providers Care Liquefaction And Regasification Helper Name Role Phone Adeline Guo MD Primary Care Provider +1- [phone] Feliciano Evans MD Unavailable Yara Harding MD Unavailable [phone] Curt Wiseman MD Primary Care Provider +[phone]- [phone] Encounter Details Date Type Department Care Team ([facility] Contact Info) Description 05/10/2022 Scanned Document [facility] NEUROSURGERY SCAN Neurosurgery, Scan Social History [...] Encounters Date Type Department Care Team ([facility] Contact Info) Description 12/09/2024 1:00 PM EDT Procedure visit [facility] Neurology [address] [place] [phone] Suman Dudley MD [address] [place], [place] [address], [place] [address] documented as of this encounter Visit Diagnoses Not on filedocumented in this encounter Care Teams Liquefaction And Regasification Helper Relationship Specialty Start Date End Date Adeline Guo MD [address] [place] [address] PCP - General Internal Medicine 03/10/20 10/13/24 Curt Wiseman MD [address] [place] [address] 104 [place] [address] PCP - General Family Medicine 10/14/24 Feliciano Evans MD [address] [place] [address] Referring Provider 10/28/20 Yara Harding MD [address] [place] [address] Neurology 03/20/[address] [place] [address] [id number] Neurology Neurology 06/07/22 documented as of this encounter
--- OUTSIDE RECORDS SUMMARY | 2024-11-14 14:28 | XMS_ITS | Encounter Summary ---
Author Organization [employer] [facility] Address [address] [place] [address] 7 [place] [address] Care Team Providers Care Head Of Research & Insights Name Role Phone Unavailable Primary Care Provider Unavailabl e Reason for Visit * Reason Onset Date Comments Med Refill 10/08/2024 Encounter Details Date Type Department Care Team (Late st Contact Info) Description 10/08/2024 Refill [facility] ADULT DENTAL [address] [place] [address] Rocoí Castillo DDS [address] [place] [address] Social History Tobacco Use Types Packs/Day Years [...] Description 11/27/2024 2:00 PM EDT Office Visit [facility] ADULT DENTAL [address] [place] [address] Rocío Castillo DDS [address] [place] [address] documented as of this encounter Visit Diagnoses Not on filedocumented in this encounter
--- OUTSIDE RECORDS SUMMARY | 2024-11-14 14:28 | XMS_ITS | Encounter Summary ---
Author Organization [employer] [facility] Address [address] [place] [address] 7t [place] [address] Care Team Providers Care Semi Conductor Assembler Name Role Phone Unavailable Primary Care Provider Unavailabl e Encounter Details Date Type Department Care Team (Latest Contact Info) Description 04/13/2022 Abstract [facility] CONVERSIONS Dental, Provider, DDS Social History Tobacco [...] Description 11/27/2024 2:00 PM EDT Office Visit [facility] ADULT DENTAL [address] [place] [address] Rocío Castillo, DDS [address] [place] [address] documented as of this encounter Visit Diagnoses Not on filedocumented in this encounter
--- OUTSIDE RECORDS SUMMARY | 2024-11-14 14:28 | XMS_ITS | Encounter Summary ---
Author Organization [facility] Address [address] [place] [address] 7 [place] [address] Care Team Providers Care Teacher Adventure Education Name Role Phone Unavailable Primary Care Provider Unavailabl e Reason for Visit * Reason Comments implant placment LR implant placement Encounter Details Date Type Department Care Team ([facility] st Contact Info) Description 11/13/2024 1:00 PM EDT Office Visit [facility] [address] [place] [address] Alex Burns DMD [address] [place] [address] History of tooth extraction, unspecified edentulism class (Primary Dx) Social History Tobacco Use Types Packs/Day Years Used Date Smoking Tobacco: Never Passive Smoke Exposure: Never Smokeless Tobacco: Never Sex and Gender Information Value Date Recorded Sex Assigned at Male 06/06/2022 10:24 AM EDT Legal Sex Male 10:24 AM EDT Gender Identity Male 06/06/2022 10:24 AM EDT Sexual Orientation Straight 06/06/2022 10 :24 AM EDT documented as of this encounter Last Filed Vital Signs Vital Sign Reading Time Taken Comments Blood Pressure 128/76 11/13/2024 1:19 PM EDT Pulse - - Temperature - - Respiratory Rate - - Oxygen Saturation - - Inhaled Oxygen Concentration - - Weight - - Height - - Body Mass Index - - documented in this encounter Progress Notes * Rocío Castillo DDS - 11/13/2024 1:00 PM EDT Dental procedures in this visit D6010 - SURGICAL PLACEMENT OF IMPLANT BODY - ENDOSTEAL IMPLANT 31 (Completed) Service provider: Rocío Castillo DDS Billing provider: Alex Burns DMD Patient ID: [id number] Wolf is a 74 y.o. male. Time Out: Date: 11/13/2024 Location: [facility] Tooth: #31 Procedure: implant placement Verified the above with patient, patient assistant, and provider. Confirmed via patient's chart, intraorally and by radiographs. Manager Track: not applicable Pt presented to visit for implant placement on tooth #31 LA: 20% topical benzocaine; KELSEY block with 1/2 carpule 4% septocaine/articaine 1:100,000 epinephrine / local infiltration with 1/2 carpule 4% septocaine/articaine 1:100,000 epinephrine. Pt s/p implant placement tooth 31: no Cx of pain Implant 5x10mm & 3x6 COFFMAN. RP CC Chaitanya PE: no pain swelling or discharge at sites; implants stable A: Pt healing well P: RTO in 3 months for PANO to ascertain bone healing - post op instructions (written + verbal), extra pack of gauze given. - Rx: acetaminophen (Tylenol) 500 MG tablet Take 1 tablet (500 mg) by mouth every 6 (six) hours if needed for mild pain for up to 10 days., Starting Mon08/14/2024, Until 08/24/2024 at 2359, Normal amoxicillin (Amoxil) 500 MG capsule Take 1 capsule (500 mg) by mouth every 8 (eight) hours for 7 days., Starting Mon08/14/2024, Until Mon08/21/2024, Normal oxyCODONE (Roxicodone) 5 MG immediate release tablet Take 1 tablet (5 mg) by mouth every 6 (six) hours if needed for severe pain for up to 5 days., Starting Mon08/14/2024, Until 08/19/2024 at 2359, Print Patient satisfied, left in stable condition NV: follow up Provider: Dr. Rocío Castillo DDS Website Project Manager: Barbara Johnson DMD. Louise Bowens Supervising Dentist: Dr. Burns * Alex Burns DMD - 11/13/2024 1:00 PM EDT I saw and evaluated the patient, participating in the diaz portions of the service. I reviewed the resident???s note. I agree with the resident???s findings and plan. Alex Burns DMD documented in this encounter Plan of Treatment Upcoming Encounters Date Type Department Care Team (Late st Contact Info) Description 11/27/2024 2:00 PM EDT Office Visit [facility] [address] [place] [address] Rocío Castillo DDS [address] [place] [address] Scheduled Orders Name Type Priority Associated Diagnoses Orde r Schedule RE-EVAL - POST-OP OFFICE VISIT Dental Routine [address] arting 11/13/2024 documented as of this encounter Procedures Procedure Name Priority Date/Time Associated Diagnosis Comments 31 SURGICAL PLACEMENT OF IMPLANT BODY - ENDOSTEAL IMPLANT Routine 11/13/2024 1:00 PM EDT documented in this encounter Visit Diagnoses Diagnosis History of tooth extraction, unspecified edentulism class- Primary documented in this encounter
--- OUTSIDE RECORDS SUMMARY | 2024-11-14 14:28 | XMS_ITS | Encounter Summary ---
Author Organization [facility] Address [address] [place] [address] 7t [place] [address] Care Team Providers Care Architectural Engineering Teacher Name Role Phone Unavailable Primary Care Provider Unavailabl e Encounter Details Date Type Department Care Team (Latest Contact Info) Description 10/13/2021 Abstract [facility] CONVERSIONS Dental, Provider, DDS Social History [...] Description 11/27/2024 2:00 PM EDT Office Visit [facility]ULT [facility] [address] [place] [address] Rocío Castillo, DDS [address] [place] [address] documented as of this encounter Visit Diagnoses Not on filedocumented in this encounter
--- OUTSIDE RECORDS SUMMARY | 2024-11-14 14:28 | XMS_ITS | Clinical Summary ---
Author Organization [facility] Address [address] [place] [address] Phone Care Team Providers Care Parimutuel Clerk Name Role Phone Curt Wiseman MD Primary [...] sleep apnea hypopnea, severe 016 Overview (07/08/2024): [facility] Home Polysomnogram: Date 12/08/2015; AHI 8, Unclassified apneas 0; Obstructive apneas 0; Central apneas 0; Mixed apneas 0; hypopneas 20; average oxygen saturation 94% (lowest 87% without saturations <88% for 5% or more of study) [facility] Polysomnogram treatment study. Date 02/28/2018. SE 84 % SM 86 %; spent 16 % of the study in REM. On CPAP @ 8; RDI 0.7 (AHI 0.3), Central apneas 0; Obstructive apneas 0; Mixed apneas 0; hypopneas 1; RERAs 1; and, average oxygen saturation was 93%. For the entire study, PLMs ~20. [facility] Home Polysomnogram: Date 03/15/2018; AHI 19, Unclassified [...] stress disorder) 06/02/2014 TBI (traumatic brain injury) (CMS/HCC V24, CMS/H CC V28) 06/02/2014 Assessment & Plan (07/22/2024 6:37 PM EST): Patient has had memory issues in the past. This problem was not evaluated during today's encounter. Orders: ECG 12 lead Benign prostatic hyperplasia 05/21/2014 Coronary artery disease invo lving [place] coronary artery of [place] heart without angina pectoris 05/21/2014 Overview (07/08/2024): [...] Orders: ECG 12 lead IgA deficiency, selective ([facility] V24, [facility] V28) 05/21/2014 Lower back pain 05/21/2014 Encounters Date Type Department Care Team Description 11/05/2024 3:50 PM EDT - 11/05/2024 11:59 PM EDT Hospital Encounter [facility] Neurodiagnostic [address] [place] [address] Paresthesias in left hand Discharge Disposition: Home or Self Care 08/28/2024 1:45 PM EST Office Visit Orthopedic [facility] 175 [facility] [address] [place] [address] Michelle Watson PA Left arm pain (Primary Dx) 08/21/2024 Telephone Orthopedic [facility] [address] [facility] [address] [place] [address] Michelle Watson PA from Last 3 Months Immunizations Name Administration Dates Next Due Influenza trivalent, 0.5mL (Fluad) 65yo and olde r 05/24/2019 Influenza trivalent, 0.5mL, preservative free (Fluarix; FluLaval; Fluzone) ages 6mo and older (Afluria) 3 years and older 07/09/2018,06/04/2014 haku SARS-CoV-2 COVID-19, mRNA, LNP-S, preservative free 10/08/2020,09/17/2020 Pneumococcal polysaccharide 23 valent (Pneumovax 23) 2yo and older 07/22/2011 Zoster recombinant (Shingrix) 19yo and older 06/2021 Surgical History Surgery Date Site/Laterality Comments SHOULDER SURGERY PROCEDURE: HISTORICAL SHOULDER SURGERY; COMMENT: bilateral KNEE SURGERY PROCEDURE: HISTORICAL KNEE SURGERY; COMMENT: right OTHER SURGICAL HISTORY PROCEDURE: HISTORICAL UNSPECIFIED FRACTURE; COMMENT: left wrist CARDIAC CATHETERIZATION 90, , , 2012 PROCEDURE: HISTORICAL CARDIAC CATH; COMMENT: 4 [...] patient OTHER SURGICAL HISTORY 07/12/2019 Right PROCEDURE: [place] ARTHROPLASTY GLENOHUMERAL JOINT TOTAL SHOULDER Medical History Medical History Date Comments Hypertension 05/21/2014 DX:Hypertension Hyperlipidemia 05/21/2014 DX:Hyperlipidemi a CAD (coronary artery disease) 05/21/2014 DX :CAD (coronary artery disease); COMMENT: Stents LAD D1 RCA bare metal stent 2012 SAMMIE (obstructive sleep apnea) 05/21/2014 DX :SAMMIE (obstructive sleep apnea); COMMENT: off CPAP after wt loss BPH (benign prostatic hypertrophy) 05/21/2014 DX:BPH (benign prostatic hypertrophy) GERD (gastroesophageal reflux disease) 4 DX:GERD (gastroesophageal reflux disease) Erectile dysfunction 05/21/2014 DX:Erectile dysfunction IgA deficiency, selective (C RI/HCC V24, 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/HCC V24, [facility]/HCC V28) 06/02/2014 DX:TBI (traumatic brain inju ry) ([facility]) PTSD (post-traumatic stress [...] PM EDT Office Visit [facility] [place] 175 [facility] [address] [place] [address] Michelle Watson PA 174 [facility] [place] [address] [place] [phone] Health Maintenance Due Date Last Done Comments [...] - 11/05/2024 Please see the attached report. Michelle ORTIZ NEUROLOGY ORDERABLES Final Re sult * Lipid panel (08/19/2024 10:07 AM EST) Cholesterol Total 126 100 - 199 mg/dL [facility] 1 Triglycerides 94 0 - 149 mg/dL [facility] 1 HDL Cholesterol 49 >39 mg/dL [facility] 1 VLDL Cholesterol Calculated 18 5 - 40 mg/dL [facility] 1 LDL Chol Calc ([facility]) 59 0 - 99 mg/dL [facility] 1 Blood Venous blood specimen / Unknown 08/19/2024 10:07 AM EST 08/19/2024 Narrative [facility] 1 - 08/20/2024 3:06 AM EST Performed at: ??01 - [facility] [address] ??[id number] Film Examiner: Annette Meier MD, Phone: ??[phone] Feliciano Evans MD LAB BLOOD ORDERABLES Final Res ult [facility] 1 * Annual BMP Blood Test (10/22/2020) Pathologist [facility] Annual BMP Blood Test abstracted Historical Provider HEALTH MAINTENANCE Final Result from Last 3 Months or Most Recently Relevant to Health Maintenance Insurance [employer] Care Teams Parimutuel Clerk Relationship Specialty Start Date End Date Curt Wiseman MD [address] [place] [address] PCP - General Family Medicine 07/22/24
--- OUTSIDE RECORDS SUMMARY | 2024-11-14 14:28 | XMS_ITS | Encounter Summary ---
Author Organization [facility] Address [address] [place] [address] Care Team Providers Care Disc Jockey Name Role Phone Adeline Guo MD Primary Care Provider +1- [phone] Feliciano Evans MD Unavailable Yara Harding MD Unavailable Curt Wiseman MD Primary Care Provider +1- [phone] Encounter Details Date Type Department [facility] Team ([facility]) Description 06/01/2022 Scanned Document [facility] Neurosurgery [address] [place] [phone] Neurosurgery, Scan Social History Tobacco Use [...] Upcoming Encounters Date Type Department Care Team ([facility] Contact Info) Description 12/09/2024 1:00 PM EDT Procedure visit [facility] Neurology [address] [place] [phone] Suman Dudley MD [address] [place] [address] [place] [address] documented as of this encounter Visit Diagnoses Not on filedocumented in this encounter Care Teams Disc Jockey Relationship Specialty Start Date End Date Adeline Guo MD [address] [place] [address] PCP - General Internal Medicine 03/10/20 10/13/24 Curt Wiseman MD [address] [place] [address] PCP - General Family Medicine 10/14/24 Feliciano Evans MD [address] [place] [address] Referring Provider 10/28/20 Yara Harding MD [address] [place] [address] Neurology 03/20/23 Austin Sethi [address] [place] [address] Neurology Neurology 06/07/22 documented as of this encounter
--- OUTSIDE RECORDS SUMMARY | 2024-11-14 14:28 | XMS_ITS | Encounter Summary ---
Author Organization [facility] Address [address] [place] [address] Care Team Providers Care Clinical Business Manager Name Role Phone Adeline Guo MD Primary Care Provider +1- [phone] Feliciano Evans MD Unavailable Yara Harding MD Unavailable [phone] Curt Wiseman MD Primary Care Provider [phone]- [phone] Encounter Details Date Type Department Care Team ([facility] Contact Info) Description 05/15/2020 Scanned Document [facility] Neurosurgery [address] [phone] Marcelino Steen MD [address] [address] Social History Tobacco Use Types Packs/Day Years [...] Upcoming Encounters Date Type Department Care Team ([facility] Contact Info) Description 12/09/2024 1:00 PM EDT Procedure visit [facility] Neurology [place] 35 [facility] 6 [place] [address] Suman Dudley MD [address] [address] documented as of this encounter Visit Diagnoses Not on filedocumented in this encounter Care Teams Clinical Business Manager Relationship Specialty Start Date End Date Adeline Guo MD [address] [place] [address] PCP - General Internal Medicine 03/10/20 10/13/24 Curt Wiseman MD [address] [place] [address] PCP - General Family Medicine 10/14/24 Feliciano Evans MD [address] [place] [address] Referring Provider 10/28/20 Yara Harding MD [address] [place] [address] Neurology 03/20/[address] [address] Neurology Neurology 06/07/22 documented as of this encounter
--- OUTSIDE RECORDS SUMMARY | 2024-11-14 14:28 | XMS_ITS | Encounter Summary ---
Author Organization [facility] Address [address] [place] [address] Care Team Providers Care Commodities Manager Name Role Phone Adeline Guo MD Primary Care Provider +1- [phone] Feliciano Evans MD Unavailable Yara Harding MD Unavailable [phone] Curt Wiseman MD Primary Care Provider [phone]- [phone] Encounter Details Date Type Department Care Team (Late st Contact Info) Description 02/28/2023 [facility] Neurology [address] [place] [address] Yara Harding MD [facility] [address] [place] [address] Social History Tobacco Use Types Packs/Day Years [...] 1:00 PM EDT Procedure visit [facility] [place] 35 [facility] 6 [place] [address] Suman Dudley MD [address] [address] documented as of this encounter Visit Diagnoses Not on filedocumented in this encounter Care Teams Commodities Manager Relationship Specialty Start Date End Date Adeline Guo MD [address] [place] [address] PCP - General Internal Medicine 03/10/20 10/13/24 Curt Wiseman MD [address] [place] [address] Dr Garcia [address] [place] [address] PCP - General Family Medicine 10/14/24 Feliciano Evans MD [address] [place] [address] Referring Provider 10/28/20 Yara Harding MD [address] [place] [address] Neurology 03/20/23 Austin Sethi [address] [place] [address] Neurology Neurology 06/07/22 documented as of this encounter
--- OUTSIDE RECORDS SUMMARY | 2024-11-14 14:28 | XMS_ITS | Encounter Summary ---
Author Organization [facility] Address [address] [place] [address] Care Team Providers Care Milk Hauler Name Role Phone Adeline Guo MD Primary Care Provider +1- [phone] Feliciano Evans MD Unavailable Yara Harding MD Unavailable [phone] Curt Wiseman MD Primary Care Provider [phone]- [phone] Encounter Details Date Type Department Care Team (Late Contact Info) Description 04/07/2020 Scanned Document [facility] Neurosurgery [address] [place] [phone] Monroe Choi MD 85 [facility] [place] [address] [place] [phone] Social History Tobacco Use Types Packs/Day Years [...] Upcoming Encounters Date Type Department Care Team ([facility] Contact Info) Description 12/09/2024 1:00 PM EDT Procedure visit [facility] Neurology [place] 35 [facility] 6 [place] [address] Suman Dudley MD [address] [address] documented as of this encounter Visit Diagnoses Not on filedocumented in this encounter Care Teams Milk Hauler Relationship Specialty Start Date End Date Adeline Guo MD [address] [place] [address] PCP - General Internal Medicine 03/10/20 10/13/24 Curt Wiseman MD [address] [place] [address] PCP - General Family Medicine 10/14/24 Feliciano Evans MD [address] [place] [address] Referring Provider 10/28/20 Yara Harding MD [address] [place] [address] Neurology 03/20/[address] [address] Neurology Neurology 06/07/22 documented as of this encounter
--- OUTSIDE RECORDS SUMMARY | 2024-11-14 14:28 | XMS_ITS | Encounter Summary ---
Author Organization [facility] Address [address] [place] [address] Care Team Providers Care Orchid Worker Name Role Phone Adeline Guo MD Primary Care Provider +1- [phone] Feliciano Evans MD Unavailable Yara Harding MD Unavailable [phone] Curt Wiseman MD Primary Care Provider [phone]- [phone] Encounter Details Date Type Department Care Team ([facility] Contact Info) Description 04/08/2020 Scanned Document [facility] Neurosurgery [address] [phone] Monroe Choi MD [address] [place] [address] Social History Tobacco Use Types Packs/Day Years [...] Upcoming Encounters Date Type Department Care Team ([facility] Contact Info) Description 12/09/2024 1:00 PM EDT Procedure visit [facility] [place] [address] [place] [address] Suman Dudley MD [address] [address] documented as of this encounter Visit Diagnoses Not on filedocumented in this encounter Care Teams Orchid Worker Relationship Specialty Start Date End Date Adeline Guo MD [address] [place] [address] PCP - General Internal Medicine 03/10/20 10/13/24 Curt Wiseman MD [address] [place] [address] Dr Garcia [address] [place] [address] PCP - General Family Medicine 10/14/24 Feliciano Evans MD [address] [place] [address] Referring Provider 10/28/20 Yara Harding MD [address] [place] [address] Neurology 03/20/[address] [address] Neurology Neurology 06/07/22 documented as of this encounter
--- OUTSIDE RECORDS SUMMARY | 2024-11-14 14:28 | XMS_ITS | Encounter Summary ---
Author Organization [facility] Address [address] [place] [address] Care Team Providers Care Photo Engraver Name Role Phone Adeline Guo MD Primary Care Provider +1- [phone] Feliciano Evans MD Unavailable Yara Harding MD Unavailable [phone] Curt Wiseman MD Primary Care Provider [phone]- [phone] Encounter Details Date Type Department Care Team (Late st Contact Info) Description 07/19/2022 Telephone [facility] Neurology [address] [place] [phone] Yara Harding MD [facility] [address] [place] [address] Social History Tobacco Use Types Packs/Day Years [...] 1:00 PM EDT Procedure visit [facility] Neurology [place] 35 [facility] [address] [place] [address] Suman Dudley MD [address] [address] documented as of this encounter Visit Diagnoses Not on filedocumented in this encounter Care Teams Photo Engraver Relationship Specialty Start Date End Date Adeline Guo MD [address] [place] [address] PCP - General Internal Medicine 03/10/20 10/13/24 Curt Wiseman MD [address] [place] [address] Dr Garcia [address] [place] [address] PCP - General Family Medicine 10/14/24 Feliciano Evans MD [address] [place] [address] Referring Provider 10/28/20 Yara Harding MD [address] [place] [address] Neurology 03/20/[address] [place] [address] [address] Neurology Neurology 06/07/22 documented as of this encounter
--- OUTSIDE RECORDS SUMMARY | 2024-11-14 14:28 | XMS_ITS | Encounter Summary ---
Author Organization [facility] Address [address] [place] [address] Care Team Providers Care Surfacer Name Role Phone Adeline Guo MD Primary Care Provider +1- [phone] Feliciano Evans MD Unavailable Yara Harding MD Unavailable [phone] Curt Wiseman MD Primary Care Provider [phone]- [phone] Encounter Details Date Type Department Care Team ([facility] Contact Info) Description 10/30/2020 Scanned Document [facility] Neurology [address] [place] [phone] Angelica Zuluaga, [address] [place] [phone] Social History Tobacco Use Types Packs/Day Years [...] Upcoming Encounters Date Type Department Care Team ([facility] st Contact Info) Description 12/09/2024 1:00 PM EDT Procedure visit [facility] Neurology [place]l 35 [facility] [address] [place] [phone] Suman Dudley MD [address] [address] documented as of this encounter Visit Diagnoses Not on filedocumented in this encounter Care Teams Surfacer Relationship Specialty Start Date End Date Adeline Guo MD [address] [place] [address] PCP - General Internal Medicine 03/10/20 10/13/24 Curt Wiseman MD [address] [place] [address] Dr Garcia [address] [place] [address] PCP - General Family Medicine 10/14/24 Feliciano Evans MD [address] [place] [address] Referring Provider 10/28/20 Yara Harding MD [address] [place] [address] Neurology 03/20/23 Austin Sethi [address] [place] [address] Neurology Neurology 06/07/22 documented as of this encounter
--- OUTSIDE RECORDS SUMMARY | 2024-11-14 14:28 | XMS_ITS | Encounter Summary ---
Author Organization [facility] Address [address] [place] [address] Care Team Providers Care Fishing Boat Captain Name Role Phone Adeline Guo MD Primary Care Provider [phone]- [phone] Feliciano Evans MD Unavailable Yara Harding MD Unavailable [phone] Curt Wiseman MD Primary Care Provider [phone] Encounter Details Date Type Department Care Team ([facility] Contact Info) Description 06/18/[address] [facility] Neurosurgery [address] [place] [id number] Monroe Choi MD 85 [facility] [place] [address] [place] [address] [id number] Social History Tobacco Use Types Packs/Day Years [...] Upcoming Encounters Date Type Department Care Team ([facility] Contact Info) Description 12/09/2024 1:00 PM EDT Procedure visit [facility] Neurology Jl [address] [place] [address] Suman Dudley MD [address] [address] documented as of this encounter Visit Diagnoses Not on filedocumented in this encounter Care Teams Fishing Boat Captain Relationship Specialty Start Date End Date Adeline Guo MD [address] [place] [address] PCP - General Internal Medicine 03/10/20 10/13/24 Curt Wiseman MD [address] [place] [address] Dr Garcia [address] [place] [address] PCP - General Family Medicine 10/14/24 Feliciano Evans MD [address] [place] [id number] Referring Provider 10/28/20 Yara Harding MD [address] [place] [address] Neurology 03/20/[address] [address] Neurology Neurology 06/07/22 documented as of this encounter
--- OUTSIDE RECORDS SUMMARY | 2024-11-14 14:29 | XMS_ITS | Encounter Summary ---
Author Organization [employer] Address [address] [place] [address] 7[address] [place] [address] Care Team Providers Care Changer Fixer Name Role Phone Unavailable Primary Care Provider Unavailabl e Reason for Visit * Reason Onset Date Comments instructions 12/28/2022 Dental Pain 12/28/2022 Encounter Details Date Type Department Care Team (Late st Contact Info) Description 12/28/2022 Telephone [facility] ADULT DENTAL [address] [place] [address] Alex Burns DMD [address] [place] [address] instructions; Dental Pain Social History Tobacco Use [...] Description 11/27/2024 2:00 PM EDT Office Visit [facility] ADULT DENTAL [address] [place], [place] [phone] Rocío Castillo, CATHERINE [address] [place], [place] [phone] documented as of this encounter Visit Diagnoses Not on filedocumented in this encounter
--- OUTSIDE RECORDS SUMMARY | 2024-11-14 14:29 | XMS_ITS | Encounter Summary ---
Author Organization [employer] [facility] Address [address] [place] [address] 7t [place] [address] Care Team Providers Care Guest Service Aide Name Role Phone Unavailable Primary Care Provider Unavailabl e Reason for Visit * Reason Onset Date Comments medication pre med 07/17/2023 Encounter Details Date Type Department Care Team (Late st Contact Info) Description 07/17/2023 Telephone [facility] ADULT DENTAL [address] [place] [address] Art Poe, DDS [address] [place] [address] medication pre med Social History Tobacco Use [...] 11/27/2024 2:00 PM EDT Office Visit [facility] ADULT DENTAL [address] [place] [address] Rocío Castillo, DDS [address] [place] [address] documented as of this encounter Visit Diagnoses Not on filedocumented in this encounter
--- OUTSIDE RECORDS SUMMARY | 2024-11-14 14:29 | XMS_ITS | Encounter Summary ---
Author Organization [employer] Address [address] [place] [address] 7t [place] [address] Care Team Providers Care Podiatric Medicine Professor Name Role Phone Unavailable Primary Care Provider Unavailabl e Reason for Visit * Reason Onset Date Comments appt temp crown fell off/recement 03/19/2024 Encounter Details Date Type Department Care Team (Late st Contact Info) Description 03/19/2024 Telephone [facility] ADULT DENTAL [address] [place] [address] Rocío Castillo, ROSEMARIES [address] [place] [address] appt temp crown fell off/recement Social History [...] off. Ok to schedule per Megan front desk specialist. Informed front desk specialist via phone that [employer] is not an insurance we have access [...] tomorrow at 1:30. They would like to pickle cutter in the morning to have it ready to take prior to treatment. The pharmacy on file is the one to use. documented in this encounter Plan of Treatment Upcoming Encounters Date Type Department Care Team (Late st Contact Info) Description 11/27/2024 2:00 PM EDT Office Visit [facility] ADULT DENTAL [address] [place], [place] [phone] Rocío Castillo DDS [address] [place] [address] documented as of this encounter Visit Diagnoses Not on filedocumented in this encounter
--- OUTSIDE RECORDS SUMMARY | 2024-11-14 14:29 | XMS_ITS | Encounter Summary ---
Author Organization [facility] Address [address] [place] [address] Care Team Providers Care Climatologist Name Role Phone Curt Wiseman MD Primary Care Provider [phone] Reason for Visit * Reason Comments Appointment Encounter Details Date Type Department Care Team ([facility] st Contact Info) Description 04/16/[address] [facility] Neurology [address] [address] Austin Sethi MD 123 [facility] [address] [place] [address] Appointment Social History Tobacco Use Types Packs/Day [...] Phone 05/03/21 3:30 PM Austin Sethi MD [facility] Neurology [address] * Telephone Encounter [...] Phone 04/20/21 2:15 PM Austin Sethi [address] [facility] Neurology [address] * Telephone Encounter [...] on filedocumented in this encounter Care Teams Climatologist Relationship Specialty Start Date End Date Curt Wiseman MD [address] [address] PCP - General Family Medicine 02/10/21 documented as of this encounter
--- OUTSIDE RECORDS SUMMARY | 2024-11-14 14:29 | XMS_ITS | Encounter Summary ---
Author Organization [facility] [employer] [facility] Address [address] [place] [address] [address]t [address] [address] Care Team Providers Care Master Carpenter Name Role Phone Unavailable Primary Care Provider Unavailabl e Encounter Details Date Type Department Care Team (Late st Contact Info) Description 03/18/2024 Telephone [facility] ADULT DENTAL [address] [place] [address] Dipti Rosenthal [address] [place] [address] Social History Tobacco Use Types Packs/Day Years [...] Description 11/27/2024 2:00 PM EDT Office Visit [facility] ADULT DENTAL [address] [place] [address] Rocío Castillo, DDS [address] [place] [address] documented as of this encounter Visit Diagnoses Not on filedocumented in this encounter
--- OUTSIDE RECORDS SUMMARY | 2024-11-14 14:29 | XMS_ITS | Clinical Summary ---
Author Organization [employer] [facility] Address [address] [place] [address] 7[address] [place] [address] Care Team Providers Care Storage Engineer Name Role Phone Unavailable Primary Care Provider Unavailabl e Allergies No known active allergies Medications chlorhexidine (Peridex) 0.12 % solutionIndica tions:History of tooth extraction, unspecified edentulism class Fill irrigation syringe and irrigate extraction socket following meals. Spit, do not swallow. 473 mL 01/06/20 23 Active amoxicillin (Amoxil) 500 MG [...] A DAY FOR PAIN OR SPASM 08/03/20 23 Active ezetimibe (Zetia) 10 MG tablet Take 10 mg by mouth in the morning. 05/22/20 23 Active finasteride (Proscar) 5 MG tablet Take 1 tablet by mouth in the morning. 08/30/19 19 Active fluticasone (Flonase) 50 MCG/ACT nasal spray USE 1 SPRAY IN EACH NOSTRIL EVERY 12 HOURS 05/24/20 Active gabapentin (Neurontin) 100 MG capsule Take 100 mg by mouth 2 times daily. 08/01/20 23 Active lamoTRIgine (LaMICtal) 200 MG tablet Take 1 tablet by mouth 2 times daily. 07/29/20 23 Active LORazepam (Ativan) 1 MG tablet TAKE ONE TABLET (1 MG TOTAL) BY MOUTH EVERY NIGHT 02/22/20 23 Active Multiple Vitamin (One-Daily Multi-Vitamin) tablet Take 1 tablet by mouth in the morning. 07/26/20 23 Active omeprazole (PriLOSEC) [address] capsule Take 40 mg by mouth 2 times daily. 06/23/20 23 Active predniSONE (Deltasone) 10 MG tablet TAKE [...] dental appointment. 4 capsule 11/13/19 25 Active oxyCODONE (Roxicodone) 5 MG immediate release tabletIndicati ons:History of tooth extraction, unspecified edentulism class Take 1 tablet (5 mg) by mouth every 6 (six) hours if needed for severe pain for up to 5 days. 15 tablet 11/14/19 25 025 Active amoxicillin (Amoxil) 500 MG capsule Take 1 capsule (500 mg) by mouth every 8 (eight) hours for 7 days. 21 capsule 11/14/19 25 025 Active ibuprofen 600 MG tabletIndicati ons:History of tooth extraction, unspecified edentulism class Take 1 tablet (600 mg) by mouth 3 times daily for 10 days. 20 tablet 11/14/19 25 025 Active ibuprofen 600 MG tabletIndicati ons:History of tooth extraction, unspecified edentulism class Take 1 tablet (600 mg) by mouth every 6 (six) hours if needed for mild pain for up to 20 doses. 20 tablet 01/06/20 23 025 Discontinued(Re order (will not trigger notification to Pharmacy)) amoxicillin (Amoxil) 500 MG capsule Please take 4 CAPS of 500 MG one hour before your next dental appointment. 4 capsule 03/19/20 24 025 Discontinued(Re order (will not trigger notification to Pharmacy)) Active Problems No known active problems Encounters Date Type Department Care Team Description 11/13/2024 1:00 PM EDT Office Visit [facility] ADULT DENTAL [address] [place] [address] Alex Burns DMD History of tooth extraction, unspecified edentulism class (Primary Dx) 11/12/2024 Refill [facility] ADULT DENTAL [address] [place] [address] Rocío Castillo, DDS 10/23/2024 3:15 PM EDT Office Visit [facility] ADULT DENTAL [address] [place] [address] Rocío Castillo, DDS 10/08/2024 Refill [facility] ADULT DENTAL [address] [place] [address] CastilloCoryia, DDS 09/05/2024 Telephone [facility] ADULT DENTAL [address] [place] [address] Alex Burns DMD from Last 3 Months [...] Pressure 128/76 11/13/2024 1:19 PM EDT Pulse 60 08/22/2023 2:01 PM EST Temperature - - Respiratory Rate - - Oxygen Saturation - - Inhaled Oxygen Concentration - - Weight - - Height - - Body Mass Index - - Plan of Treatment Upcoming Encounters Date Type Department Care Team (Late st Contact Info) Description 11/27/2024 2:00 PM EDT Office Visit [facility] ADULT DENTAL [address] [place] [address] Rocío Castillo, DDS [address] [place] [address] Health Maintenance Due Date Last Done Comments [...] X-Ray: Bitewings 11/17/2024 11/17/2023, 08/22 Tobacco Screening 11/13/2025 11/13/2024 Dental X-Ray: Full Mouth 10/05/2026 10/04/2023 DTaP/Tdap/Td [...] ENDOSTEAL IMPLANT Routine 11/13/2024 1:00 PM EDT CONSULTATION - DIAGNOSTIC SERVICE PROVIDED BY DENTIST [...] Relevant to Health Maintenance Insurance DENTAL - [facility]
== END 2024-11-14 14:28 | disposition home or self-care (01) ==
LOC: HO.HMCFM 11:50
PROVIDERS: PCP Family Medicine; Visit Provider Family Medicine
DX: S20.229A Contusion of unspecified back wall of thorax, initial encounter (principal); G47.30 Sleep apnea, unspecified; R13.10 Dysphagia, unspecified; G25.0 Essential tremor; I10 Essential (primary) hypertension; I25.10 Atherosclerotic heart disease of native coronary artery without angina pectoris; M25.561 Pain in right knee; G89.29 Other chronic pain; G47.9 Sleep disorder, unspecified

== ENCOUNTER → 2024-11-14 11:50 | Outpatient (BNVA) | payer MEDICARE, SELFPAY | PROVIDERS: PCP Family Medicine; Visit Provider Family Medicine | DX: S20.229D Contusion of unspecified back wall of thorax, subsequent encounter (principal); G47.30 Sleep apnea, unspecified; R13.10 Dysphagia, unspecified; I10 Essential (primary) hypertension; I25.10 Atherosclerotic heart disease of native coronary artery without angina pectoris; M25.561 Pain in right knee; G89.29 Other chronic pain; G47.9 Sleep disorder, unspecified | CPT/HCPCS: 99212 ==

== ENCOUNTER 2024-12-17 14:19 | Emergency (ER) | payer MEDICARE, SELFPAY ==
--- NOTE | ~2024-12-17 | XR_ITS ---
EXAMINATION: XR CHEST CLINICAL INFORMATION: dyspnea, frequent pna COMPARISON: 07/02/2024. TECHNIQUE: 2 views of the chest were obtained. FINDINGS: Spinal stimulator device noted in the right hemithorax with leads extending into the right neck and beyond the edge of the film. The cardiac, hilar, and mediastinal contours are normal. The lungs are clear bilaterally. There is no pneumothorax or pleural effusion. There is no focal osseous or soft tissue abnormality. There is been a reverse shoulder arthroplasty. Degenerative changes in the right shoulder joint with surgical anchor present. There are spinal degenerative changes present. XR/XR chest 2V IMPRESSION: No active pulmonary disease. Electronically signed by: Ra Caceres MD 12/17/2024 03:41 PM EDT
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
[2024-12-17 14:29] VITALS: BP 135/75; PULSE 85; RESP 16; TEMP 36.9; O2SAT 96; BMI 29.1
--- NOTE | 2024-12-17 14:30 | ECG_ITS ---
Test Reason : DYSPNEA Blood Pressure : */* mmHG Vent. Rate : 75 BPM Atrial Rate : 75 BPM P-R Int : 190 ms QRS Dur : 82 ms QT Int : 364 ms P-R-T Axes : 39 11 33 degrees QTcB Int : 406 ms Normal sinus rhythm Cannot rule out Anterior infarct , age undetermined Abnormal ECG No previous ECGs available Referred By: Carolina Ledesma Electronically Signed By: CHRYSTAL APODACA MD
[2024-12-17 15:06] LABS: MANUAL DIFF FLAG NO
[2024-12-17 15:08] LABS: Basophils Absolute Auto 0.1 X10*3/uL (0.0-0.2); Eosinophils Absolute Auto 0.5 X10*3/uL (0.0-0.4); Eosinophils Percent Auto 6.7 % (0-4); Hematocrit 40.5 % (42.0-52.0); Hemoglobin 13.8 g/dl (14.0-18.0); Imm Gran Abs Auto 0.01 X10*3/uL (0.00-0.03); Imm Gran Pct Auto 0.1 % (0.0-0.4); Lymphocytes Percent Auto 14.6 % (20-40); Mean Corpuscular HGB Conc 34.1 g/dl (31.0-36.0); Mean Corpuscular Hemoglobin 30.5 pg (27.0-33.0); Mean Corpuscular Volume 89.6 fL (80.0-98.0); Monocytes Absolute Auto 0.8 X10*3/uL (0.1-1.2); Monocytes Percent Auto 11.4 % (2-11); Neutrophils Absolute Auto 4.6 x10*3/uL (2.0-8.3); Neutrophils Percent Auto 66.2 % (45-73); Platelet Count 148 X10*3/uL (160-400); Red Blood Count 4.52 X10*6/uL (4.60-5.80); White Blood Count 6.9 X10*3/uL (4.8-10.8)
[2024-12-17 15:46] LABS: Influenza A PCR NEGATIVE (Negative); Influenza B PCR NEGATIVE (Negative); Resp Syncy Virus RNA Qual PCR NEGATIVE (Negative); SARS COV2 PCR INHOUSE NEGATIVE (Negative)
[2024-12-17 16:03] LABS: Alanine Aminotransferase 47 U/L (0-40); Anion Gap 13 (12-20); Aspartate Amino Transferase 37 U/L (5-37); Bilirubin Total 0.5 mg/dL (0.0-1.0); Blood Urea Nitrogen 22 mg/dL (9-16); Calcium 9.1 mg/dL (8.4-10.2); Carbon Dioxide 26 mmol/L (22-29); Chloride 107 mmol/L (96-108); Creatinine Clr Calc Pharmacy 92.8; Estimated Glomerular Filt Rate > 60; Glucose Random 87 mg/dL (60-115); Potassium 3.8 mmol/L (3.3-5.1); Sodium 142 mmol/L (135-145); Total Protein 6.7 g/dL (6.5-8.0)
[2024-12-17 16:40] LABS: Alkaline Phosphatase 80 U/L (39-117)
--- OUTSIDE RECORDS SUMMARY | 2024-12-17 18:13 | XMS_ITS | Clinical Summary ---
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 Left leg numbness 02/05/2019 Family History Medical History Relation Name Comments [...] this topic Medical Devices Implanted Type Area Collection Analyst Device Identifier Shelf Expiration Date Model / Serial / Lot Baseplate Reverse Shoulder Prosthesis With P2 Coating 30mm - [id number] Implanted:Qty: 1 on 07/12/2019 by Andrew Butler MD at [facility] Implant [employer] 05/03/2025 508-32-204 / / [id number] Head Glenoid With Retaining Screw [place] Shoulder Prosthesis Neutral 32mm - [id number] Implanted:Qty: 1 on 07/12/2019 by Andrew Butler MD at [facility] Implant [employer] 04/09/2025 508-32-101 / / [id number] Insert Socket Humeral Standard Hxe-Plus Rsp Sterile 68ipu7qf - [id number] Implanted:Qty: 1 on 07/12/2019 by Andrew Butler MD at [facility] Implant [employer] 05/31/2023 509-00-432 / / [id number] Stem Humeral Standard Reverse Shoulder Prosthesis [id number] - [id number] Implanted:Qty: 1 on 07/12/2019 by Andrew Butler MD at [facility] Implant [employer] 07/12/2024 530-10-108 / / [id number] Screw Locking Reverse Shoulder Prosthesis [id number] - [id number] Implanted:Qty: 1 on 07/12/2019 by Andrew Butler MD at [facility] Screw [employer] 03/24/2025 506-03-130 / / [id number] Screw Locking Bone Reverse Shoulder Prosthesis [id number] - [id number] Implanted:Qty: 1 on 07/12/2019 by Andrew Butler MD at [facility] Screw [employer] 04/19/2025 506-03-122 / / [id number] Screw Locking Reverse Shoulder Prosthesis [id number] - [id number] Implanted:Qty: 1 on 07/12/2019 by Andrew Butler MD at [facility] Screw [employer] 02/27/2025 506-03-130 / / [id number] Insurance [facility] Advance Directives * Full Code (Latest Code Status on File) Date Activated Date Inactivated Comments 07/12/2019 1:40 PM 07/13/2019 8:20 PM * Full Code Date Activated Date Inactivated Comments 07/12/2019 6:13 AM 07/12/2019 1:40 PM Care Teams Academic Dean Relationship Specialty Start Date End Date Adeline Locke PCP - General Pediatrics 11/14/17
--- OUTSIDE RECORDS SUMMARY | 2024-12-17 18:13 | XMS_ITS | Encounter Summary ---
Author Organization Formerly [facility] Address [address] [place] [address] Care Team Providers Care Copra Sampler Name Role Phone Adeline Guo MD Primary Care Provider +- [phone] Feliciano Evans MD Unavailable Unavailable Yara Harding MD Unavailable [phone] Curt Wiseman MD Primary Care Provider [phone] Encounter Details Date Type Department Care Team (Late Contact Info) Description 08/05/2020 Scanned Document [facility] [place] [address] [id number] Monroe Choi MD [address] [address] Social History Tobacco Use Types Packs/Day Years Used Date Smoking Tobacco: Never Smokeless Tobacco: Never Sex and Gender Information Value Date Recorded Sex Assigned at Male 02/23/2022 12:37 PM EDT Legal Sex Male 6:54 PM EST Gender Identity Not on file Sexual Orientation Heterosexual (straight) 02/23 12:37 PM EDT documented as of this encounter Plan of Treatment Upcoming Encounters Date Type Department Care Team (Late Contact Info) Description 01/27/2025 1:00 PM EDT Procedure visit [facility] Neurology [address] [phone] Suman Dudley MD [address] [place], [place] [address] [address] documented as of this encounter Visit Diagnoses Not on filedocumented in this encounter Care Teams Copra Sampler Relationship Specialty Start Date End Date Adeline Guo MD [address] [place] [address] PCP - General Internal Medicine 03/10/20 10/13/24 Curt Wiseman MD [address] [place] [address] PCP - General Family Medicine 10/14/24 Feliciano Evans MD [address] [place] [address] Referring Provider 10/28/20 Yara Harding MD [address] [place] [address] Neurology 03/20/23 Austin Sethi [address] [place] [address] Neurology Neurology 06/07/22 documented as of this encounter
--- OUTSIDE RECORDS SUMMARY | 2024-12-17 18:13 | XMS_ITS | Encounter Summary ---
Author Organization [facility] Address [address] [place] [address] Care Team Providers Care Field Clerk Name Role Phone Adeline Locke Primary Care Provider Unavailable Reason for Visit * Reason Onset Date Comments Neurology apt with Dr. Kitchen 11/30/2021 Encounter Details Date Type Department Care Team (Late st Contact Info) Description 11/30/2021 Telephone [facility] [address] [place] [phone] Telephone Intake, Staff Neurology apt with Dr. [...] scheduling. A good call back number is [phone]. documented in this encounter Plan of Treatment Not on file documented as of this encounter Visit Diagnoses Not on filedocumented in this encounter Care Teams Field Clerk Relationship Specialty Start Date End Date Adeline Locke PCP - General Pediatrics 11/14/17 documented as of this encounter
--- OUTSIDE RECORDS SUMMARY | 2024-12-17 18:13 | XMS_ITS | Encounter Summary ---
Author Organization [facility] Address [address] [place] [address] Care Team Providers Care Mobile Paramedical Examiner Name Role Phone Adeline Guo MD Primary Care Provider +- [phone] Feliciano Evans MD Unavailable Unavailable Yara Harding MD Unavailable [phone] Curt Wiseman MD Primary Care Provider [phone] Encounter Details Date Type Department Care Team (Late st Contact Info) Description 07/19/2024 Telephone [facility] Neurology [address] [phone] Suman Dudley MD [address] [place] [address] Social History Tobacco Use Types Packs/Day Years [...] Care Team (Late st Contact Info) Description 01/27/2025 1:00 PM EDT Procedure visit [facility] Neurology [address] [address] Suman Dudley MD [address] [place] [address] documented as of this encounter Visit Diagnoses Not on filedocumented in this encounter Care Teams Mobile Paramedical Examiner Relationship Specialty Start Date End Date Adeline Guo MD [address] [place] [address] PCP - General Internal Medicine 03/10/20 10/13/24 Curt Wiseman MD [address] [place] [address] Dr Garcia [facility] [address] PCP - General Family Medicine 10/14/24 Feliciano Evans MD [address] [place] [address] Referring Provider 10/28/20 Yara Harding MD [address] [place] [address] Neurology 03/20/[address] [address] Neurology Neurology 06/07/22 documented as of this encounter
--- OUTSIDE RECORDS SUMMARY | 2024-12-17 18:13 | XMS_ITS | Referral Summary ---
Author Organization [facility] Address [address] [place] [address] Care Team Providers Care Information Management Specialist Name Role Phone Adeline Locke Primary Care [...] on file Medical Devices Implanted Type Area [employer] Field Supervisor Device Identifier Shelf Expiration Date Model / Serial / Lot Baseplate Reverse Shoulder Prosthesis With P2 Coating 30mm - [id number] Implanted:Qty: 1 on 07/12/2019 by Andrew Butler MD at [facility] Implant [employer] 05/03/2025 508-32-204 / / [id number] Head Glenoid With Retaining Screw [place] Shoulder Prosthesis Neutral 32mm - [id number] Implanted:Qty: 1 on 07/12/2019 by Andrew Butler MD at [facility] Implant [employer] 04/09/2025 508-32-101 / / [id number] Insert Socket Humeral Standard Hxe-Plus Rsp Sterile 29lkw5an - [id number] Implanted:Qty: 1 on 07/12/2019 by Andrew Butler MD at [facility] Implant [employer] 05/31/2023 509-00-432 / / [id number] Stem Humeral Standard Reverse Shoulder Prosthesis [id number] - [id number] Implanted:Qty: 1 on 07/12/2019 by Andrwe Butler MD at [facility] Implant [employer] 07/12/2024 530-10-108 / / [id number] Screw Locking Reverse Shoulder Prosthesis [id number] - [id number] Implanted:Qty: 1 on 07/12/2019 by Andrew Butler MD at [facility] Screw [employer] 03/24/2025 506-03-130 / / [id number] Screw Locking Bone Reverse Shoulder Prosthesis [id number] - [id number] Implanted:Qty: 1 on 07/12/2019 by Andrew Butler MD at [facility] Screw [employer] 04/19/2025 506-03-122 / / [id number] Screw Locking Reverse Shoulder Prosthesis [id number] - [id number] Implanted:Qty: 1 on 07/12/2019 by Andrew Butler MD at [facility] [employer] 02/27/2025 506-03-130 / / [id number] Insurance [facility] Advance Directives * Full Code (Latest Code Status on File) Date Activated Date Inactivated Comments 07/12/2019 1:40 PM 07/13/2019 8:20 PM * Full Code Date Activated Date Inactivated Comments 07/12/2019 6:13 AM 07/12/2019 1:40 PM Care Teams Information Management Specialist Relationship Specialty Start Date End Date Adeline Locke PCP - General Pediatrics 11/14/17
--- OUTSIDE RECORDS SUMMARY | 2024-12-17 18:13 | XMS_ITS | Continuity of Care Document ---
Author Organization [facility] Address [address] [place] [address] Care Team Providers Care Stitch Bonding Machine Operator Name Role Phone Curt Wiseman MD Primary Care Provider Encounters Date Type Department Care Team Description [facility]/14[facility]2023 [facility] Neurology [address] [facility] [address] [place] [address] Austin Sethi MD E-prescribing Refill Request 10/10/[address] [facility] Neurology [address] [facility] [address] [place] [address] Austin Sethi MD Refill Request 06/25/[address] [facility] Neurology [address] [facility] [address] [place] [address] Austin Sethi MD Med Change Request; Refill Request 05/22/[address] [facility] Neurology [address] [facility] [address] [place] [address] Austin Sethi MD E-prescribing Refill Request 03/20/[address] [facility] Neurology [address] [facility] [address] [place] [address] Austin Sethi MD Medication Check 02/20/[address] [facility] Neurology [address] [facility] [address] [place] [address] Austin Sethi MD E-prescribing Refill Request 01/10/[address] [facility] Neurology [address] [facility] [address] [place] [address] Austin Sethi MD E-prescribing Refill Request 08/08/[address] [facility] Neurology [address] [facility] [address] [place] [address] Austin Sethi MD E-prescribing Refill Request 07/25/[address] [facility] Neurology [address] [facility] [address] [place] [address] Austin Sethi MD Appointment 06/07/2022 4:30 PM EDT Office Visit [facility] Neurology [address] [facility] [address] [place] [address] Austin Sethi MD Essential tremor (Primary Dx) 05/23/[address] [facility] Neurology [address] [facility] [address] [place] [address] Austin Sethi MD E-prescribing Refill Request 03/11/[address] [facility] Neurology [address] [facility] [address] [place] [address] Austin Sethi MD Follow Up 03/07/2022 8:15 AM EDT Office Visit [facility] Neurology [address] [facility] [address] [place] [address] Austin Sethi MD Essential tremor (Primary Dx) 02/22/[address] [facility] Neurology [address] [facility] [address] [place] [address] Austin Sethi MD Appointment 01/19/[address] [facility] Neurology [address] [facility] [address] [place] [address] Austin Sethi MD Follow Up 12/24/[address] [facility] Neurology [address] [facility] [address] [place] [address] Austin Sethi MD 12/11/[address] [facility] Neurology [address] [facility] [address] [place] [address] Austin Sethi MD E-prescribing Refill Request 11/15/[address] [facility] Neurology [address] [facility] [address] [place] [address] Austin Sethi MD Follow Up (DBS adjustment ) 10/29/2021 4:00 PM EDT Office Visit [facility] Neurology [address] [facility] [address] [place] [address] Austin Sethi MD Essential tremor (Primary Dx) 10/28/[address] [facility] Neurology [address] [facility] [address] [place] [address] Toma Salas MD E-prescribing Refill Request 09/26/[address] [facility] Neurology [address] [facility] [address] [place] [address] Austin Sethi MD E-prescribing Refill Request 09/12/[address] [facility] Neurology [address] [facility] [address] [place] [address] Austin Sethi MD E-prescribing Refill Request 07/23/[address] [facility] Neurology [address] [facility] [address] [place] [address] Lorna Prado, SONALI Appointment 05/03/2021 3:30 PM EDT Office Visit [facility] Neurology [address] [facility] [address] [place] [address] Austin Sethi MD Essential tremor (Primary Dx) 04/16/[address] [facility] Neurology [address] [facility] [address] [place] [address] Austin Sethi MD Appointment 01/29/2021 4:45 PM EDT Office Visit [facility] Neurology [address] [facility] [address] [place] [address] Austin Sethi MD Essential tremor (Primary Dx) 12/31/[address] [facility] Neurology [address] [facility] [address] [place] [address] Austin Sethi MD Follow Up (DBS) 12/25/[address] [facility] Neurology [address] [facility] [address] [place] [address] Austin Sethi MD Medication Problem (Lorazepam) 12/24/[address] [facility] Neurology [address] [facility] [address] [place] [address] Austin Sethi MD Prior Authorization Request (lorazepam) 12/22/2020 Travel 12/22/2020 4:30 PM EDT Office Visit [facility] Neurology [address] [facility] [address] [place] [address] Austin Sethi MD Essential tremor (Primary Dx); PTSD (post-traumatic stress disorder) 12/15/[address] [facility] Neurology [address] [facility] [address] [place] [address] Austin Sethi MD Refill Request (Xanax 0.25) 12/10/2020 10:30 AM EDT Office Visit [facility] Neurology [address] [facility] [address] [place] [address] Austin Sethi MD Essential tremor (Primary Dx) 12/09/[address] [facility] Neurology [address] [facility] [address] [place] [address] Austin Sethi MD Follow Up (DBS) 12/08/2020 Travel 12/08/2020 8:00 AM EDT Office Visit [facility] Neurology [address] [facility] [address] [place] [address] Austin Sethi MD Essential tremor (Primary Dx) 11/25/[address] [facility] Neurology [address] [facility] [address] [place] [address] Austin Sethi MD Other 10/30/[address] [facility] Neurology [address] [facility] [address] [place] [address] Austin Sethi MD E-prescribing Refill Request 10/30/[address] [facility] Neurology [address] [facility] [address] [place] [address] Austin Sethi MD Medication Problem (primidone) 10/20/2020 Travel 10/20/2020 8:00 AM EDT Consult (Initial) [facility] Neurology [address] [facility] [address] [place] [address] Austin Sethi MD Essential tremor (Primary Dx) 10/01/[address] [facility] Neurology [address] [facility] [address] [place] [address] Austin Sethi MD Appointment 03/13/2018 Orders Only [facility] Cardiology [address] [place] [address] [address] [place] [address] Jorge Pascual DO 03/13/[address] Orders [address] [facility] Pre-Admission Testing [address] [place] [address] Yamilex Langston NP 03/13/2018 3:30 PM EDT Office Visit [facility] Pre-Admission Testing [address] [place] [address] Yamilex Langston NP Preop examination (Primary Dx); Gastroesophageal reflux disease, esophagitis presence not specified; Hyperlipidemia, unspecified hyperlipidemia type; Hypertension, unspecified type; Benign prostatic hyperplasia, unspecified whether lower urinary tract symptoms present; Mood disorder; RLS (restless legs syndrome); SAMMIE (obstructive sleep apnea) 03/13/2018 3:00 PM EDT Nurse Visit [facility] Pre-Admission Testing [address] [place] [address] Poonam Pedersen, RN Gastroesophageal reflux disease, esophagitis presence not specified (Primary Dx) 02/19/2018 2:45 PM EDT Consult (Initial) [facility] General Surgery [address] [facility] [address] [place] [address] Trevor Lo MD Gastroesophageal reflux disease without [...] problems Social History Smoking Status as of 12/17/2024 Tobacco Use Types Packs/Day Years Used Date [...] Not on file Procedures * Due to [place] state law, this organization might not be [...] XRAY ESOPHAGUS 11/14/2017 Results * Due to [place] state law, this organization might not be [...] EDT 03/13/2018 8:44 PM EDT Yamilex Langston [facility]-WITH INBSK T RTG Final Result [facility] * PROTHROMBIN TIME (PT) (INR), BLOOD (03/13/2018 4:11 PM EDT) INR 1.0 [facility] Comment: Reference Range ? 0.9-1.1 Moderate-intensity Warfarin Therapy 2.0-3.0 Higher-intensity Warfarin Therapy ?? 3.0-4.0 PT 10.7 9.0 - 11.5 sec [facility] Comment: For more information on this test, go to: [email or web address]/[email or web address] 03/13/2018 4:11 PM EDT 03/13/2018 9:37 PM EDT Narrative Resulting Agency Comment [id number] us Yamilex Langston [facility] SAME DAY RESULT Final Result [facility] [address] [place] [address] * CBC INCLUDES DIFFERENTIAL AND PLATELET COUNT [...] 9:37 PM EDT Narrative Resulting Agency Comment [id number] us Yamilex Langston [facility] SAME DAY RESULT Final Result Performing Organization Address City/State/[facility] Co de Phone Number [facility] [address] [place] [address] * HEPATIC FUNCTION PANEL (ALT,AST,ALK PH,BILI'S,TP,ALB) (03/13/2018 [...] 9:37 PM EDT Narrative Resulting Agency Comment [id number] us Yamilex Langston [facility] Final Res ult [facility] [address] [place] [address] * BASIC METABOLIC PANEL WITH (GFR) (03/13/2018 4:11 PM EDT) Glucose 98 65 - 99 mg/dL [facility] Comment:Fasting reference in terval Urea Nitrogen Blood (BUN) 20 7 - 25 mg/dL [facility] Creatinine 1.05 0.70 - 1.25 mg/dL [facility] Comment: For patients >49 years of age, the reference limit for Creatinine is approximately 13% higher for people identified as -Russian. GFR 74 > OR = 60 mL/min/1 [...] needs for GFR calculation. Resulting Agency Comment [id number] Yamilex Langston [facility] Final Res ult [facility] [address] [place] [address] * XRAY ESOPHAGUS (11/14/2017) 11/14/2017 Pricila Hagen MD GENERAL IMAGING- OTHER Final [...] specified forms of tremor 06/07/2022 Care Teams Stitch Bonding Machine Operator Relationship Specialty Start Date [place] [address] PCP - General Family Medicine 02/10/21
--- OUTSIDE RECORDS SUMMARY | 2024-12-17 18:13 | XMS_ITS | Encounter Summary ---
Author Organization [facility] Address [address] [place] [address] Care Team Providers Care Office Equipment Technician Name Role Phone Adeline Guo MD Primary Care Provider +- [phone] Feliciano Evans MD Unavailable Unavailable Yara Harding MD Unavailable [phone] Curt Wiseman MD Primary Care Provider [phone] Encounter Details Date Type Department Care Team (Late st Contact Info) Description 11/26/2020 Prep for Surgery [facility] Pre-Admission Testing [facility] [address] [facility] [address] [place] [address] Mariama Allred, ANIMAL HUSBANDRY TECHNICIAN [address] [place] [address] Social History Tobacco Use Types [...] Description 01/27/2025 1:00 PM EDT Procedure visit [facility] Neurology [facility] [address] [facility] [address] [place] [address] Suman Dudley MD [address] [address] documented as of this encounter Visit Diagnoses Not on filedocumented in this encounter Care Teams Office Equipment Technician Relationship Specialty Start Date End Date Adeline Guo MD [address] [place] [address] PCP - General Internal Medicine 03/10/20 10/13/24 Curt Wiseman MD [address] [place] [address] Dr Garcia [address] [place] [address] PCP - General Family Medicine 10/14/24 Feliciano Evans MD [address] [place] [address] Referring Provider 10/28/20 Yara Harding MD [address] [place] [address] Neurology 03/20/23 Austin Sethi [address] [place] [address] Neurology Neurology 06/07/22 documented as of this encounter
--- OUTSIDE RECORDS SUMMARY | 2024-12-17 18:14 | XMS_ITS | Encounter Summary ---
Author Organization [facility] Address [address] [place] [address] Care Team Providers Care Top Precipitator Operator Helper Name Role Phone Adeline Guo MD Primary Care Provider +- [phone] Feliciano Evans MD Unavailable Unavailable Yara Harding MD Unavailable [phone] Curt Wiseman MD Primary Care Provider [phone] Encounter Details Date Type Department Care Team (Late Contact Info) Description 06/01/2022 Scanned Document [facility] Neurosurgery [address] [place] [address] Neurosurgery, Scan Social History Tobacco Use [...] Upcoming Encounters Date Type Department Care Team ([facility] Contact Info) Description 01/27/2025 1:00 PM EDT Procedure visit [facility] Neurology [address] [address] Suman Dudley MD [address] [address] documented as of this encounter Visit Diagnoses Not on filedocumented in this encounter Care Teams Top Precipitator Operator Helper Relationship Specialty Start Date End Date Adeline Guo MD [address] [place] [address] PCP - General Internal Medicine 03/10/20 10/13/24 Curt Wiseman MD [address] [place] [address] Dr Garcia [address] [place] [address] PCP - General Family Medicine 10/14/24 Feliciano Evans MD [address] [place] [address] Referring Provider 10/28/20 Yara Harding MD [address] [place] [address] Neurology 03/20/23 Austin Sethi [address] [place] [address] Neurology Neurology 06/07/22 documented as of this encounter
--- OUTSIDE RECORDS SUMMARY | 2024-12-17 18:14 | XMS_ITS | Encounter Summary ---
Author Organization [facility] Address [address] [place] [address] Care Team Providers Care Gas Appliance Adjuster Name Role Phone Adeline Guo MD Primary Care Provider +- [phone] Feliciano Evans MD Unavailable Unavailable Yara Harding MD Unavailable [phone] Curt Wiseman MD Primary Care Provider [phone] Encounter Details Date Type Department Care Team (Late Contact Info) Description 05/20/2020 Scanned Document [address] [place] [address] Provider, Generic Social History Tobacco Use [...] Description 01/27/2025 1:00 PM EDT Procedure visit [facility] Neurology [address] [place] [address] Suman Dudley MD 35 [facility] [address] [place] [address] documented as of this encounter Visit Diagnoses Not on filedocumented in this encounter Care Teams Gas Appliance Adjuster Relationship Specialty Start Date End Date Adeline Guo MD [address] [place] [address] PCP - General Internal Medicine 03/10/20 10/13/24 Curt Wiseman MD [address] [place] [address] [address] [place] [address] PCP - General Family Medicine 10/14/24 Feliciano Evans MD [address] [place] [address] Referring Provider 10/28/20 Yara Harding MD [address] [place] [address] Neurology 03/20/[address] [place] [address] [address] Neurology Neurology 06/07/22 documented as of this encounter
--- OUTSIDE RECORDS SUMMARY | 2024-12-17 18:14 | XMS_ITS | Patient Health Record ---
Author Organization [facility] Address [address] [place] [address] Care Team Providers Care Salon Assistant Name Role Phone Adeline Guo Primary Care Provider Pricila Valenzuela Unavailable [phone] REASON FOR REFERRAL No Information MEDICATIONS Medication [...] GENERALIZED (789.07) Active confirmed Generalized abdominal pain (713060395) Problem Diarrhea (787.91) Active confirmed Diarrhea (51195474) Problem Vomiting (787.03) Active confirmed Vomiting (507653863) Problem Abnormal loss of weight (783.21) Active confirmed Abnormal weight loss (543144487) Problem GERD [Gastroesophage al reflux disease] (530.81) Active confirmed Gastroesophagea l reflux disease (disorder) (658816234) Problem Projectile vomiting with nausea (R11.12) Active confirmed Vomiting (406359632) Problem Diarrhea, unspecified type (R19.7) Active confirmed Diarrhea (96537970) Problem Chronic GERD (K21.9) Active confirmed 103609911 Problem Slow transit constipation (K59.01) Active confirmed 28981961 Problem Intractable cyclical vomiting with nausea (G43.A1) Active confirmed 12643410 Problem Barretts esophagus without dysplasia (K22.70) Active confirmed 043658836 Problem Bleeding per rectum (K62.5) Active confirmed 26547537 PLAN OF TREATMENT Pending Test Test Name Order Date *[facility]Parasites Exam, Routine 03/31/2015 MRI:ENTEROGRAPHY 03/31/2015 Gastric emptying study 03/31/2015 CT Abdomen Pelvis with contrast 08/05/20 16 Insurance Providers Payer Name Payer Address Payer Phone Subscriber Number Group Number Insured Name Patient Relationship to Insured Coverage Start Date Coverage End Date [place] [employer] [place] [facility] [address] [place] [address] [id number] THALIA DANIELSON Self - patient is the insured Medicaid OF [employer] [address] [place] [id number] THALIA DANIELSON Self - patient is the insured MEDICAL (GENERAL) HISTORY Medical History History ICD Code Hypertension Coronary artery disease s/p PCI Depression/ anxiety Hyperlipidemia Surgical History Surgery Date(Month/Year) cardiac stents
--- OUTSIDE RECORDS SUMMARY | 2024-12-17 18:14 | XMS_ITS | Encounter Summary ---
Author Organization [facility] Address [address] [place] [address] Care Team Providers Care Instructional Systems Design Consultant Name Role Phone Adeline Guo MD Primary Care Provider +- [phone] Feliciano Evans MD Unavailable Unavailable Yara Harding MD Unavailable [phone] Curt Wiseman MD Primary Care Provider [phone] Encounter Details Date Type Department Care Team (Late Contact Info) Description 05/15/2020 Scanned Document [facility] [place] 35 [facility] [address] [place] [address] Marcelino Steen MD 35 [facility] 5 [place] [address] Social History Tobacco Use Types Packs/Day Years [...] Description 01/27/2025 1:00 PM EDT Procedure visit [facility] [place] 35 [facility] [address] [place] [address] Suman Dudley MD [address] [place] [address] [place] [address] documented as of this encounter Visit Diagnoses Not on filedocumented in this encounter Care Teams Instructional Systems Design Consultant Relationship Specialty Start Date End Date Adeline Guo MD 395 [place] [address] PCP - General Internal Medicine 03/10/20 10/13/24 Curt Wiseman MD [address] [place] [address] Dr Garcia [address] [place] [address] PCP - General Family Medicine 10/14/24 Feliciano Evans MD [address] [place] [address] Referring Provider 10/28/20 Yara Harding MD [address] [place] [address] Neurology 03/20/[address] [address] Neurology Neurology 06/07/22 documented as of this encounter
--- OUTSIDE RECORDS SUMMARY | 2024-12-17 18:14 | XMS_ITS | Encounter Summary ---
Author Organization [employer] Address [address] [facility] 7t [place] [address] Care Team Providers Care Cargo Supervisor Name Role Phone Unavailable Primary Care Provider Unavailabl e Reason for Visit * Reason Onset Date Comments appt temp crown fell off/recement 03/19/2024 Encounter Details Date Type Department Care Team ([facility] st Contact Info) Description 03/19/2024 Telephone [facility]ULT [facility]AL [address] [place] [address] Rocío Castillo, DDS [address] [place] [address] appt temp crown fell off/recement Social History [...] fell off. Ok to schedule per Megan vest front presser. Informed vest front presser via phone that [employer] is not an insurance we have access to and unable to post. Normally same day visits PAR reps post insurance. Megan verified it will be taken care of in office DR * Telephone Encounter - Zeynep Rodriguez - 03/19/2024 10:12 AM EDT Message was sent out mistakenly to incorrect provider (hygenist) yesterday. Patient is coming in tomorrow and needs to have antibiotic sent to the pharmacy for premed treatment. The appt is tomorrow at 1:30. They would like to brain picker in the morning to have it ready to take prior to treatment. The pharmacy on file is the one to use. documented in this encounter Plan of Treatment Upcoming Encounters Date Type Department Care Team (Late st Contact Info) Description 02/20/2025 1:00 PM EDT Office Visit [facility] ADULT DENTAL [address] [place] [address] Corinne Pedroza documented as of this encounter Visit Diagnoses Not on filedocumented in this encounter
--- OUTSIDE RECORDS SUMMARY | 2024-12-17 18:14 | XMS_ITS | Encounter Summary ---
Author Organization [facility] Address [address] [place] [address] Care Team Providers Care Coach Tour Driver Name Role Phone Adeline Guo MD Primary Care Provider +- [phone] Feliciano Evans MD Unavailable Unavailable Yara Harding MD Unavailable [phone] Curt Wiseman MD Primary Care Provider [phone] Encounter Details Date Type Department Care Team (Late Contact Info) Description 05/10/2022 Scanned [address] [facility] NEUROSURGERY SCAN Neurosurgery, Scan Social [...] [facility] Contact Info) Description 01/27/2025 1:00 PM EDT Procedure visit [facility] Neurology [address] [place] [phone] Suman Dudley MD 35 [facility] 6 [place] [address] documented as of this encounter Visit Diagnoses Not on filedocumented in this encounter Care Teams Coach Tour Driver Relationship Specialty Start Date End Date Adeline Guo MD 395 [place] [address] PCP - General Internal Medicine 03/10/20 10/13/24 Curt Wiseman MD [address] [place] [address] 104 [place] [address] PCP - General Family Medicine 10/14/24 Feliciano Evans MD [address] [place] [address] Referring Provider 10/28/20 Yara Harding MD [address] [place] [address] Neurology 03/20/[address] [place] [address] [address] Neurology Neurology 06/07/22 documented as of this encounter
--- OUTSIDE RECORDS SUMMARY | 2024-12-17 18:14 | XMS_ITS | Encounter Summary ---
Author Organization [facility] Address [address] [place] [address] Care Team Providers Care Play Leader Name Role Phone Adeline Guo MD Primary Care Provider +- [phone] Feliciano Evans MD Unavailable Unavailable Yara Harding MD Unavailable [phone] Curt Wiseman MD Primary Care Provider [phone] Encounter Details Date Type Department Care Team (Late Contact Info) Description 04/08/2020 Scanned Document [address] [phone] Monroe Choi MD [address] [place] [address] Social History Tobacco Use Types Packs/Day Years [...] [facility] [place] 35 [facility] [address] [place] [address] Suman Dudley MD [address] [address] documented as of this encounter Visit Diagnoses Not on filedocumented in this encounter Care Teams Play Leader Relationship Specialty Start Date End Date Adeline Guo MD [address] [place] [address] PCP - General Internal Medicine 03/10/20 10/13/24 Curt Wiseman MD [address] [place] [address] Dr Garcia [address] [place] [address] PCP - General Family Medicine 10/14/24 Feliciano Evans MD [address] [place] [address] Referring Provider 10/28/20 Yara Harding MD [address] [place] [address] Neurology 03/20/[address] [address] Neurology Neurology 06/07/22 documented as of this encounter
--- OUTSIDE RECORDS SUMMARY | 2024-12-17 18:14 | XMS_ITS | Encounter Summary ---
Author Organization [facility] Address [address] [place] [address] 7t [place] [address] Care Team Providers Care Work Distributor Name Role Phone Unavailable Primary Care Provider Unavailabl e Reason for Visit * Reason Onset Date Comments Med Refill 10/08/2024 Encounter Details Date Type Department Care Team (Late st Contact Info) Description 10/08/2024 Refill [facility] ADULT DENTAL [address] [place] [address] Rocío Castillo DDS [address] [place], [place] [phone] Social History Tobacco Use Types Packs/Day Years [...] Description 02/20/2025 1:00 PM EDT Office Visit [facility] ADULT DENTAL [address] [place] [address] Corinne Pedroza documented as of this encounter Visit Diagnoses Not on filedocumented in this encounter
--- OUTSIDE RECORDS SUMMARY | 2024-12-17 18:14 | XMS_ITS | Encounter Summary ---
Author Organization [facility] Address [address] [place] [address] Care Team Providers Care Preservationist Name Role Phone Adeline Guo MD Primary Care Provider +- [phone] Feliciano Evans MD Unavailable Unavailable Yara Harding MD Unavailable [phone] Curt Wiseman MD Primary Care Provider [phone] Encounter Details Date Type Department Care Team (Late st Contact Info) Description 05/20/2021 Scanned Document [facility] Neurosurgery [place] 85 [facility] [address] [place] [phone] Monroe Choi MD 85 [facility] [place] [address] [place] [address] Social History Tobacco Use Types Packs/Day Years [...] Description 01/27/2025 1:00 PM EDT Procedure visit [facility] Neurology [place] 35 [facility] [address] [place] [address] Suman Dudley MD [address] [address] documented as of this encounter Visit Diagnoses Not on filedocumented in this encounter Care Teams Preservationist Relationship Specialty Start Date End Date Adeline Guo MD 395 [place] [address] PCP - General Internal Medicine 03/10/20 10/13/24 Curt Wiseman MD [address] [place] [address] Dr Garcia [address] [place] [address] PCP - General Family Medicine 10/14/24 Feliciano Evans MD [address] [place] [address] Referring Provider 10/28/20 Yara Harding MD [address] [place] [address] Neurology 03/20/23 [place] Sethi [address] [place] [address] Neurology Neurology 06/07/22 documented as of this encounter
--- OUTSIDE RECORDS SUMMARY | 2024-12-17 18:14 | XMS_ITS | Encounter Summary ---
Author Organization [facility] Address [address] [place] [address] Care Team Providers Care Organizational Development Manager Name Role Phone Adeline Guo MD Primary Care Provider +- [phone] Feliciano Evans MD Unavailable Unavailable Yara Harding MD Unavailable [phone] Curt Wiseman MD Primary Care Provider [phone] Encounter Details Date Type Department Care Team (Late Contact Info) Description 06/18/2020 Scanned Document [facility] Neuro[facility] [place] 85 [facility] [address] [place] [phone] Monroe Choi MD 85 [facility] [place] [address] [place] [address] Social History Tobacco Use Types Packs/Day Years [...] Description 01/27/2025 1:00 PM EDT Procedure visit [facility] Neu[facility] [place] 35 [facility] [address] [place] [address] Suman Dudley MD [address] [address] documented as of this encounter Visit Diagnoses Not on filedocumented in this encounter Care Teams Organizational Development Manager Relationship Specialty Start Date End Date Adeline Guo MD [address] [place] [address] PCP - General Internal Medicine 03/10/20 10/13/24 Curt Wiseman MD [address] [place] [address] Dr Garcia [address] [place] [address] PCP - General Family Medicine 10/14/24 Feliciano Evans MD [address] [place] [address] Referring Provider 10/28/20 Yara Harding MD [address] [place] [address] Neurology 03/20/[address] [address] Neurology Neurology 06/07/22 documented as of this encounter
--- OUTSIDE RECORDS SUMMARY | 2024-12-17 18:14 | XMS_ITS | Encounter Summary ---
Author Organization [facility] Address [address] [place] [address] Care Team Providers Care Dungeon Master Name Role Phone Pcp, No Primary Care Provider Adeline Moe MD Primary Care Provider +- [phone] Feliciano Evans MD Unavailable Unavailable Yara Harding MD Unavailable [phone] Curt Wiseman MD Primary Care Provider [phone] Encounter Details Date Type Department Care Team (Late st Contact Info) Description 02/25/2020 Scanned Document [facility] Neurosurgery [place] [address] [phone] Monroe Choi MD 85 [facility] [place] [address] [place] [address] Social History Tobacco Use Types Packs/Day Years [...] Description 01/27/2025 1:00 PM EDT Procedure visit [facility] Neurology [address] 6 [place] [address] Suman Dudley MD 35 [facility] 6 [place] [address] documented as of this encounter Visit Diagnoses Not on filedocumented in this encounter Care Teams Dungeon Master Relationship Specialty Start Date End Date Pcp, No [address] [place] [address] PCP - General 11/26/18 03/09/20 Adeline Guo MD [address] [place] [address] PCP - General Internal Medicine 03/10/20 10/13/24 Curt Wiseman MD [address] [place] [address] Dr Garcia [address] [place] [address] PCP - General Family Medicine 10/14/24 Feliciano Evans MD [address] [place] [address] Referring Provider 10/28/20 Yara Harding MD [address] [place] [address] Neurology 03/20/23 [place] Sethi [address] [place] [address] Neurology Neurology 06/07/22 documented as of this encounter
--- OUTSIDE RECORDS SUMMARY | 2024-12-17 18:14 | XMS_ITS | Encounter Summary ---
Author Organization [facility] Address [address] [place] [address] Care Team Providers Care Panel Machine Tender Name Role Phone Adeline Guo MD Primary Care Provider +- [phone] Feliciano Evans MD Unavailable Unavailable Yara Harding MD Unavailable [phone] Curt Wiseman MD Primary Care Provider [phone] Encounter Details Date Type Department Care Team (Late st Contact Info) Description 05/31/2022 Scanned Document [facility] Neurosurgery [place] 85 [facility] [address] [place] [phone] Monroe Choi MD 85 [facility] [place] [address] [place] [address] Social History Tobacco Use Types Packs/Day Years [...] Description 01/27/2025 1:00 PM EDT Procedure visit [facility] Neurology [place] 35 [facility] [address] [place] [address] Suman Dudley MD [address] [address] documented as of this encounter Visit Diagnoses Not on filedocumented in this encounter Care Teams Panel Machine Tender Relationship Specialty Start Date End Date Adeline Guo MD [address] [place] [address] PCP - General Internal Medicine 03/10/20 10/13/24 Curt Wiseman MD [address] [place] [address] Dr Garcia [address] [place] [address] PCP - General Family Medicine 10/14/24 Feliciano Evans MD [address] [place] [address] Referring Provider 10/28/20 Yara Harding MD [address] [place] [address] Neurology 03/20/23 [place] Sethi [address] [place] [address] Neurology Neurology 06/07/22 documented as of this encounter
--- OUTSIDE RECORDS SUMMARY | 2024-12-17 18:14 | XMS_ITS | Clinical Summary ---
Author Organization [address] [facility] Address [address] [place] [address] Phone Care Team Providers Care Malt Roaster Name Role Phone Curt Wiseman MD Primary Care Provider Allergies No known active allergies Medications linaCLOtide (Linzess) 72 mcg capsuleIndication s:Constipation, unspecified constipation type Take 1 capsule (72 mcg total) by mouth 1 (one) time each day before breakfast. 90 capsule 3 4 Active aspirin 81 mg EC tablet Take 1 tablet (81 mg total) by mouth 1 (one) time each day. 9 Active blood-gluc,BP meter,adult cuff device 1 kit by Not Applicable route 1 (one) time. 3 Active UNABLE TO FIND Inhale by mouth at bedtime. CPAP. Reliable resp 6-14 Active diphenhydrAMINE-a cetaminophen (TYLENOL PM) 25-500 mg per tablet Take [...] With a 200mg tab (total 225mg) Active mv-min/folic/K1/l ycopen/lutein (CENTRUM SILVER MEN ORAL) Take by mouth [...] mg total) by mouth at bedtime. Active sennosides/docusa te sodium (SENNA PLUS ORAL) Take by mouth 1 (one) time each day. Active tadalafiL (CIALIS) 5 mg tablet Take 1 tablet (5 mg total) by mouth 1 (one) time each day. Active traZODone (DESYREL) 50 mg tablet Take 1-2 tablets (50-100 mg total) by mouth at bedtime. 1 Active amLODIPine (NORVASC) 5 mg tabletIndications :Essential hypertension Take 1 tablet (5 mg total) by mouth 1 (one) time each day. 90 each 3 4 07/22/20 25 Active losartan-hydroCHL OROthiazide (HYZAAR) 100-12.5 mg per tablet TAKE 1 [...] NOT CRUSH CHEW 90 tablet 5 Active atorvastatin (LIPITOR) 80 mg tablet TAKE 1 TABLET BY MOUTH EVERY DAY 90 tablet 2 5 Active omeprazole (PriLOSEC) [address] capsuleIndication s:Gastroesophagea l reflux disease without esophagitis TAKE 1 CAPSULE BY MOUTH TWICE A DAY 180 capsule 2 5 Active Active Problems Problem Noted Date [...] sleep apnea hypopnea, severe 016 Overview (07/08/2024): [facility] Home Polysomnogram: Date 12/08/2015; AHI 8, Unclassified apneas 0; Obstructive apneas 0; Central apneas 0; Mixed apneas 0; hypopneas 20; average oxygen saturation 94% (lowest 87% without saturations <88% for 5% or more of study) [facility] Polysomnogram treatment study. Date 02/28/2018. SE 84 % SM 86 %; spent 16 % of the study in REM. On CPAP @ 8; RDI 0.7 (AHI 0.3), Central apneas 0; Obstructive apneas 0; Mixed apneas 0; hypopneas 1; RERAs 1; and, average oxygen saturation was 93%. For the entire study, PLMs ~20. [facility] Home Polysomnogram: Date 03/15/2018; AHI 19, [...] hyperplasia 05/21/2014 Coronary artery disease invo lving [place] coronary artery of [place] heart without angina pectoris 05/21/2014 Overview (07/08/2024): [...] Orders: ECG 12 lead IgA deficiency, selective ([facility] V24, [facility] V28) 05/21/2014 Lower back pain 05/21/2014 Encounters Date Type Department Care Team Description 11/22/2024 3:00 PM EDT Office Visit Orthopedic Surgery - [place] 175 [facility] [address] [place] [address] Michelle Watson PA Left arm pain (Primary Dx) 11/05/2024 3:50 PM EDT - 11/05/2024 11:59 PM EDT Hospital Encounter [facility] Neurodiagnostic [address] [place] [address] Paresthesias in left hand Discharge Disposition: Home or Self Care from Last 3 Months Immunizations Name Administration Dates Next Due Influenza trivalent, 0.5mL (Fluad) 65yo and olde r 05/24/2019 Influenza trivalent, 0.5mL, preservative free (Fluarix; FluLaval; Fluzone) ages 6mo and older (Afluria) 3 years and older 07/09/2018,06/04/2014 [employer] SARS-CoV-2 COVID-19, mRNA, LNP-S, preservative free 10/08/2020,09/17/2020 Pneumococcal polysaccharide 23 valent (Pneumovax 23) 2yo and older 07/22/2011 Zoster recombinant (Shingrix) 19yo and older 06/2021 Surgical History Surgery Date Site/Laterality Comments SHOULDER SURGERY PROCEDURE: HISTORICAL SHOULDER SURGERY; COMMENT: bilateral KNEE SURGERY PROCEDURE: HISTORICAL KNEE SURGERY; COMMENT: right OTHER SURGICAL HISTORY PROCEDURE: HISTORICAL UNSPECIFIED FRACTURE; COMMENT: left wrist CARDIAC CATHETERIZATION 90, 92, , 2012 PROCEDURE: HISTORICAL CARDIAC CATH; COMMENT: [...] patient OTHER SURGICAL HISTORY 07/12/2019 Right PROCEDURE: MO ARTHROPLASTY GLENOHUMERAL JOINT TOTAL SHOULDER Medical History Medical History Date Comments Hypertension 05/21/2014 DX:Hypertension Hyperlipidemia 05/21/2014 DX:Hyperlipidemi a CAD (coronary artery disease) 05/21/2014 DX :CAD (coronary artery disease); COMMENT: Stents LAD D1 2001/ RCA bare metal stent 2012 SAMMIE (obstructive sleep apnea) 05/21/2014 DX :SAMMIE (obstructive sleep apnea); COMMENT: off CPAP after wt loss BPH (benign prostatic hypertrophy) 05/21/2014 DX:BPH (benign prostatic hypertrophy) GERD (gastroesophageal reflux disease) 4 DX:GERD (gastroesophageal reflux disease) Erectile dysfunction 05/21/2014 DX:Erectile dysfunction IgA deficiency, 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, [facility]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/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, selective ([facility]) Impaired fasting glucose 06/02/2014 DX:Impa ired fasting glucose Depression 06/02/2014 DX:Depression Anxiety 06/02/2014 DX:Anxiety TBI (traumatic brain injury) ([facility] V24, [facility] V28) 06/02/2014 DX:TBI (traumatic brain inju ry) ([facility]) PTSD (post-traumatic stress disorder) 06/02/2014 DX:PTSD (post-traumatic [...] - - Weight 102 kg (225 lb) 11/22/2024 2:52 PM EDT Height 185.4 cm (6' 0.99 ) 11/22/2024 2:52 PM ED T Body Mass Index 29.69 11/22/2024 2:52 PM EDT Plan of Treatment Health Maintenance Due Date Last Done Comments RSV Immunization Adult Patients (1 - Risk 60-74 years 1-dose series) 2012 Colorectal Cancer Screening: Colonoscopy 07/16/2022 Depression Screening 07/16/2022 Falls Risk Assessment 07/16/2022 Hepatitis C Screening 07/16/2022 Medicare Annual Wellness Visit 07/16/2022 Social Influencers of Health Screening 07/16/2022 Hypertension/CHF/CAD Annual BMP Blood Test 07/17/2022 10/22/2020 COVID-19 Vaccine (9 - Pfizer risk 2023- season) 2024 04/12/2024, 05/17/2023, 11/08/2022, Additional history exists Cholesterol Screening (Lipid Panel) 08/19/2029 08/19/2024, 05/27/2020 [...] 40 mg/dL [facility] 1 LDL Chol Calc (NIH) 59 0 - 99 mg/dL [facility] 1 Blood Venous blood specimen / Unknown 08/19/2024 10:07 AM EST 08/19/2024 Narrative [facility] 1 - 08/20/2024 3:06 AM EST Performed at: ?? - [facility] [address] ??[id number] Thermal Cutter Helper: Annette Meier MD, Phone: ??[phone] us Feliciano Evans MD LAB BLOOD ORDERABLES Final Res ult [facility] 1 * Annual BMP Blood Test (10/22/2020) Pathologist [facility] Annual BMP Blood Test abstracted us Historical Provider HEALTH MAINTENANCE Final Result from Last 3 Months or Most Recently Relevant to Health Maintenance Insurance [employer] [address] [address] [employer] [employer] [address] [place] [address] Care Teams Malt Roaster Relationship Specialty Start Date End Date Curt Wiseman MD [address] [place] [address] PCP - General Family Medicine 07/22/24
--- OUTSIDE RECORDS SUMMARY | 2024-12-17 18:14 | XMS_ITS | Encounter Summary ---
Author Organization [employer] [facility] Address [address] [place] [address] 7[address] [place] [address] Care Team Providers Care Metal Bed Assembler Name Role Phone Unavailable Primary Care Provider Unavailabl e Reason for Visit * Reason Onset Date Comments medication pre med 07/17/2023 Encounter Details Date Type Department Care Team (Late st Contact Info) Description 07/17/2023 Telephone [facility] ADULT DENTAL [address] [place] [address] Art Poe DDS [address], [place] [phone] medication pre med Social History Tobacco Use [...] Description 02/20/2025 1:00 PM EDT Office Visit [facility] ADULT DENTAL [address] [place] [address] Corinne Pedroza documented as of this encounter Visit Diagnoses Not on filedocumented in this encounter
--- OUTSIDE RECORDS SUMMARY | 2024-12-17 18:14 | XMS_ITS | Encounter Summary ---
Author Organization [employer] Address [address] [place] [address] 7[address] [place] [address] Care Team Providers Care Glue Clamp Operator Name Role Phone Unavailable Primary Care Provider Unavailabl e Encounter Details Date Type Department Care Team (Latest Contact Info) Description 04/13/2022 Abstract [facility] CONVERSIONS Dental, Provider, DDS Social History [...] Description 02/20/2025 1:00 PM EDT Office Visit [facility] CHC ADULT DENTAL [address] [place] [address] Corinne Pedroza documented as of this encounter Visit Diagnoses Not on filedocumented in this encounter
--- OUTSIDE RECORDS SUMMARY | 2024-12-17 18:14 | XMS_ITS | Encounter Summary ---
Author Organization [facility] Address [address] [place] [address] Care Team Providers Care Leather Piece Inspector Name Role Phone Adeline Guo MD Primary Care Provider [phone]- [phone] Feliciano Evans MD Unavailable Unavailable Yara Harding MD Unavailable [phone] Curt Wiseman MD Primary Care Provider [phone] Encounter Details Date Type Department Care Team (Late st Contact Info) Description 10/28/2021 Scanned Document [facility] Neurosurgery [address] [address] Monroe Choi MD [address] [place] [address] Social History Tobacco Use Types Packs/Day [...] 01/27/2025 1:00 PM EDT Procedure visit [facility] Neurology [address] [place] [address] Suman Dudley MD [address] [place] [address] [place] [address] documented as of this encounter Visit Diagnoses Not on filedocumented in this encounter Care Teams Leather Piece Inspector Relationship Specialty Start Date End Date Adeline Guo MD [address] [place] [address] PCP - General Internal Medicine 03/10/20 10/13/24 Curt Wiseman MD [address] [place] [address] [place] [address] PCP - General Family Medicine 10/14/24 Feliciano Evans MD [address] [place] [address] Referring Provider 10/28/20 Yara Harding MD [address] [place] [address] Neurology 03/20/23 Austin Sethi [address] [place] [address] Neurology Neurology 06/07/22 documented as of this encounter
--- OUTSIDE RECORDS SUMMARY | 2024-12-17 18:14 | XMS_ITS | Encounter Summary ---
Author Organization [facility] Address [address] [place] [address] Care Team Providers Care Vocal Music Instructor Name Role Phone Adeline Guo MD Primary Care Provider [phone]- [phone] Feliciano Evans MD Unavailable Unavailable Yara Harding MD Unavailable [phone] Curt Wiseman MD Primary Care Provider [phone] Encounter Details Date Type Department Care Team (Late st Contact Info) Description 10/30/2020 Scanned Document [facility] Neurology [address] [place] [phone] Angelica Zuluaga, [facility] [address] [facility] [address] [place] [phone] Social History Tobacco Use Types Packs/Day Years [...] Description 01/27/2025 1:00 PM EDT Procedure visit [facility] Neurology [address] [facility] [address] [place] [address] Suman Dudley MD [address] [address] documented as of this encounter Visit Diagnoses Not on filedocumented in this encounter Care Teams Vocal Music Instructor Relationship Specialty Start Date End Date Adeline Guo MD [address] [place] [address] PCP - General Internal Medicine 03/10/20 10/13/24 Curt Wiseman MD [address] [place] [address] Dr Garcia [address] [place] [address] PCP - General Family Medicine 10/14/24 Feliciano Evans MD [address] [place] [address] Referring Provider 10/28/20 Yara Harding MD [address] [place] [address] Neurology 03/20/23 Austin Sethi [address] [place] [address] Neurology Neurology 06/07/22 documented as of this encounter
--- OUTSIDE RECORDS SUMMARY | 2024-12-17 18:14 | XMS_ITS | Encounter Summary ---
Author Organization [facility] Address [address] [place] [address] Care Team Providers Care Label Operator Name Role Phone Curt Wiseman MD Primary Care Provider [phone] Reason for Visit * Reason Comments Appointment Encounter Details Date Type Department Care Team ([facility] st Contact Info) Description 04/16/2021 Telephone [facility] Neurology [address] [address] Austin Sethi MD 123 [facility] RADHA [address] [place] [address] Appointment Social History Tobacco Use Types Packs/Day [...] Phone 05/03/21 3:30 PM Austin Sethi MD [facility] Neurology [address] * Telephone Encounter - [...] Phone 04/20/21 2:15 PM Austin Sethi MD [facility] Neurology [address] * Telephone Encounter - [...] on filedocumented in this encounter Care Teams Label Operator Relationship Specialty Start Date End Date Curt Wiseman MD [address] [address] PCP - General Family Medicine 02/10/21 documented as of this encounter
--- OUTSIDE RECORDS SUMMARY | 2024-12-17 18:14 | XMS_ITS | Clinical Summary ---
Author Organization [employer] Address [address] [facility] 7t [place] [address] Care Team Providers Care Replanting Machine Crew Name Role Phone Unavailable Primary Care Provider Unavailabl e Allergies No known active allergies Medications chlorhexidine (Peridex) 0.12 % solutionIndicati ons:History of tooth extraction, unspecified edentulism class Fill irrigation syringe and irrigate extraction socket following meals. Spit, do not swallow. 473 mL 3 Active amoxicillin (Amoxil) 500 MG capsule [...] hour before the dental appointment. 16 capsule 5 Active amoxicillin (Amoxil) 500 MG capsule Please take 4 CAPS of 500 MG one hour before your next dental appointment. 4 capsule 5 Active oxyCODONE (Roxicodone) 5 MG immediate release tabletIndication s:History of tooth extraction, unspecified edentulism class Take 1 tablet (5 mg) by mouth every 6 (six) hours if needed for severe pain for up to 5 days. 15 tablet 5 11/19/19 25 amoxicillin (Amoxil) 500 MG capsule Take 1 capsule (500 mg) by mouth every 8 (eight) hours for 7 days. 21 capsule 5 11/21/19 25 ibuprofen 600 MG tabletIndication s:History of tooth extraction, unspecified edentulism class Take 1 tablet (600 mg) by mouth 3 times daily for 10 days. 20 tablet 5 11/24/19 25 Active Problems No known active problems Encounters Date Type Department Care Team Description 11/27/2024 2:00 PM EDT Office Visit [facility] ADULT DENTAL [address] [place] [address] Rocío Castillo, DDS 11/13/2024 1:00 PM EDT Office Visit [facility] ADULT DENTAL [address] [place] [address] Alex Burns DMD History of tooth extraction, unspecified edentulism class (Primary Dx) 11/12/2024 Refill [facility] ADULT DENTAL [address] [place] [address] Rocío Castillo, DDS 10/23/2024 3:15 PM EDT Office Visit [facility] ADULT DENTAL [address] [place] [address] Rocío Castillo, DDS 10/08/2024 Refill [facility] ADULT DENTAL [address] [place] [address] Rocío Castillo, DDS from Last 3 Months Social History Tobacco [...] [facility] [address] [place] [address] Corinne Pedroza Health Maintenance Due Date Last Done Comments [...] X-Ray: Bitewings 11/17/2024 11/17/2023, 08/22 Tobacco Screening 11/27/2025 11/27/2024 Dental X-Ray: Full Mouth 10/05/2026 10/04/2023 DTaP/Tdap/Td [...] Procedure Name Priority Date/Time Associated Diagnosis Comments RE-EVAL - POST-OP OFFICE VISIT Routine 11/27/2024 2:00 PM EDT 31 SURGICAL PLACEMENT OF IMPLANT BODY - [...] Relevant to Health Maintenance Insurance [facility] - [facility]
--- OUTSIDE RECORDS SUMMARY | 2024-12-17 18:14 | XMS_ITS | Clinical Summary ---
Author Organization [facility] Address [address] [place] [address] Care Team Providers Care Studio Receptionist Name Role Phone Feliciano Evans MD Unavailable Unavailable Yara Harding MD Unavailable [phone] Curt Wiseman MD Primary Care Provider [phone] Allergies Active Allergy Reactions Criticality Noted Date Comments Gabapentin Other (See Comments) Low 02/21/2022 Extreme non-functional - patient denies Pregabalin Shortness Of Breath High 02/21/2022 Pt denies Vardenafil Other (See Comments) High 03/17/2009 Medications Multiple Vitamins-Minera ls (CENTRUM SILVER 50+MEN PO) Centrum Silver Activ e albuterol (PROVENTIL HFA; VENTOLIN HFA) 108 (90 [...] by mouth nightly. 1 Active OMEprazole (PriLOSEC) 40 MG capsule Take [...] mouth daily. 1 Active nystatin (MYCOSTATIN) ointment As needed 1 Active LORazepam (ATIVAN) 1 MG tablet [...] (15 mg total) by mouth. As needed 4 Active linaclotide (LINZESS) 72 mcg capsule [...] By: KRISHNA FAGAN Comment: Entered automatically through [employer] Problem List documentation program Feb 20, 2024 Entered By: REJI BERNARD Comment: Agent Mower Registry Exam 02/20/24 Feb 20, 2024 Entered By: REJI BERNARD Comment: Agent Mower Exposure, [facility]- Generalized abdominal pain 10/14/2024 Melena [...] deep brain stimulator placement 02/04 Overview (09/24/2021): [facility], Linear lead, right chest Postoperative visit [...] Type Department Care Team Description 11/14/2024 Telephone [facility] Neurology [address] [phone] Suman Dudley MD 10/29/2024 Telephone [facility] Neurology [address] [address] Suman Dudley MD Other 10/14/2024 1:00 PM EDT Consult [facility] Neurology [address] [place] [address] Suman Dudley MD Essential tremor (Primary Dx); Status post deep brain stimulator placement 10/14/2024 Telephone [facility] Neurology [address] [address] Suman Dudley MD 10/14/2024 Travel 10/03/2024 Telephone [facility] Neurology [address] [address] Suman Dudley MD from Last 3 Months Family History Medical [...] Description 01/27/2025 1:00 PM EDT Procedure visit [facility] Neurology [address] [facility] [address] [place] [address] Suman Dudley MD 35 [facility] 6 [place] [address] Health Maintenance Due Date Last Done Comments [...] 04/22/2022, 11/11/2021, Additional history exists Influenza Vaccine 03/07/2025 04/07/2024, , 05/25/2022, Additional history exists Hepatitis B Vaccines Aged Out No long er eligible based on patient's age to complete this topic Medical Devices Implanted Type Area Center Director Lead Teacher Device Identifier Shelf Expiration Date Model / Serial / Lot [id number] Extension Neurostimulator 60cm 1.3-3.8mm 1.5mm Std Qdpl Dist - [id number] Implanted:Qty: 1 on 11/25/2020 by Monroe Choi MD at [facility] Cerebral [employer] 09/10/2023 [id number] / [id number] / [id number] Extension Neurostimulator 60cm 1.3-3.8mm 1.5mm Std Qdpl Dist - [id number] Implanted:Qty: 1 on 11/25/2020 by Monroe Choi MD at [facility] Cerebral [employer] 01/31/2024 [id number] / [id number] / [id number] Screw Bone Mdfc 5mm 1.5mm Self Drill Htorq Xdr Amelia Madden - [id number] Implanted:Qty: 4 on 11/04/2020 by Monroe Choi MD at [facility] Maxillofacial Cranial [employer] [id number] / / [id number] Lead Neurostimulator Strg Cylinder Firm Deep Brn Stm - [id number] Implanted:Qty: 1 on 11/04/2020 by Monroe Choi MD at [facility] Stimulator Right: Brain [employer] 05/25/2024 [id number]-40 / / [id number] Lead Neurostimulator Strg Cylinder Firm Deep Brn Stm - [id number] Implanted:Qty: 1 on 11/04/2020 by Monroe Choi MD at [facility] Stimulator [employer] 3387S-40 / / [id number] Neurostimulator Implantable 68mm X 51mm Percept 2 Chnl 61g - [id number] Implanted:Qty: 1 on 11/25/2020 by Monroe Choi MD at [facility] Stimulator [employer] 08/20/2022 [id number] / [id number] 1H / [id number] Hot Shot Neurostimulator Patient Percept Pc Device - [id number] Implanted:Qty: 1 on 11/25/2020 by Monroe Choi MD at [facility] Stimulator [employer] [id number] / / [id number] Kit Stimulator Tunnel Deep Brn Stm - [id number] Implanted:Qty: 1 on 11/25/2020 by Monroe Choi MD at [facility] Stimulator [employer] [id number] / / [id number] Filler Bone Void 10cc 20cc Calcium Slf Stimulan Rpd Cure Kit - [id number] Implanted:Qty: 1 on 11/04/2020 by Monroe Choi MD at [facility] Void Filler N/A: Brain [employer] 12/04/2022 620-010 / / [id number] 620-010 Filler Bone Void 10cc 20cc Calcium Slf Stimulan Rpd Cure Kit - [id number] Implanted:Qty: 1 on 11/25/2020 by Monroe Choi MD at [facility] Void Filler Right: Chest [employer] 12/04/2022 620-010 / / [id number] Description:mixed with 1 gm vancomycin powder and 1.2gm tobramycin powder Explanted Type Area Center Director Lead Teacher Device Identifier Shelf Expiration Date Model / Serial / Lot 70-It-Ar5p Electrode Neurostimulator [employer] Dzap - [id number] Explanted:Qty: 1 on 11/04/2020 by Monroe Choi MD at [facility] Stimulator Brain [employer] 10/15/2021 70-IT-AR 5P / / [id number] 66-It-Ar4p Electrode Neurostimulator Microtargeting Unilateral - [id number] Explanted:Qty: 1 on 11/04/2020 by Monroe Choi MD at [facility] Stimulator Brain [employer] 02/25/2023 66-IT-AR 4P / / [id number] 1813-68 Cable Neurostimulator Twstlk Scrn Sterl Lf - [id number] Explanted:Qty: 1 on 11/04/2020 by Monroe Choi MD at [facility] Stimulator Right: Brain [employer] 09/03/2024 3550-68 / / [id number] Description:NOT AN IMPLANT Insurance [facility] Advance Directives * Full Code (Latest Code Status on File) Date Activated Date Inactivated Comments 11/25/2020 8:30 AM * Full Code Date Activated Date Inactivated Comments 11/04/2020 4:31 PM 11/25/2020 7:56 AM Care Teams Studio Receptionist Relationship Specialty Start Date End Date Curt Wiseman MD [address] [place] [address] Dr AaronyokeMEGAN [address] PCP - General Family Medicine 10/14/24 Feliciano Evans MD Referring Provider 10/28/20 Yara Harding MD Neurology 03/20/23 Austin Sethi [address] [place] [address] Neurology Neurology 06/07/22
--- OUTSIDE RECORDS SUMMARY | 2024-12-17 18:14 | XMS_ITS | Encounter Summary ---
Author Organization [employer] Address [address] [place] [address] 7[address] [place] [address] Care Team Providers Care Drive Worker Name Role Phone Unavailable Primary Care Provider Unavailabl e Encounter Details Date Type Department Care Team (Latest Contact Info) Description 10/13/2021 Abstract [facility] CONVERSIONS Dental, Provider, DDS Social History Tobacco [...] Description 02/20/2025 1:00 PM EDT Office Visit [facility] CHC ADULT DENTAL [address] [place] [address] Corinne Pedroza documented as of this encounter Visit Diagnoses Not on filedocumented in this encounter
--- OUTSIDE RECORDS SUMMARY | 2024-12-17 18:14 | XMS_ITS | Encounter Summary ---
Author Organization [facility] Address [address] [place] [address] Care Team Providers Care Associate Professor Of Pathology Name Role Phone Adeline Guo MD Primary Care Provider [phone] Curt Wiseman MD Primary Care Provider [phone] Encounter Details Date Type Department Care Team ([facility] st Contact Info) Description 03/13/2018 Orders Only [facility] Pre-Admission Testing [address] [place] [address] Yamilex Langston NP Social History Tobacco Use [...] of this encounter Procedures * Due to [place] state law, [...] in this encounter Results * Due to [place] state law, [...] 03/13/2018 8:44 PM EDT us Yamilex Langston DITCH CLEANER CARDIOVASCULAR-WITH INBSK T RTG Final Result [facility] EKG SYSTEM * PROTHROMBIN TIME (PT) (INR), BLOOD (03/13/2018 4:11 PM EDT) INR 1.0 [facility] Comment: Reference Range ? 0.9-1.1 Moderate-intensity Warfarin Therapy 2.0-3.0 Higher-intensity Warfarin Therapy ?? 3.0-4.0 PT 10.7 9.0 - 11.5 sec [facility] Comment: For more information on this test, go to: http://education.Trippy/faq/ZEK510 03/13/2018 4:1 1 PM EDT 03/13/2018 9:37 PM EDT Narrative Resulting Agency Comment [id number] Yamilex Langston DITCH CLEANER LAB SAME DAY RESULT Final Result [facility] [address] [place] [address] * HEPATIC FUNCTION PANEL (ALT,AST,ALK PH,BILI'S,TP,ALB) (03/13/2018 4:11 PM EDT) Pathologist [facility] Protein Total (Serum) 6.7 6.1 - 8.1 [...] 9:37 PM EDT Narrative Resulting Agency Comment [id number] Yamilex Langston DITCH CLEANER LABORATORY Final Res ult [facility] [address] [place] [address] * CBC INCLUDES DIFFERENTIAL AND PLATELET COUNT [...] 9:37 PM EDT Narrative Resulting Agency Comment [id number] Yamilex Langston DITCH CLEANER LAB SAME DAY RESULT Final Result [facility] [address] [place] [address] * BASIC METABOLIC PANEL WITH (GFR) (03/13/2018 4:11 PM EDT) Glucose 98 65 - 99 mg/dL [facility] Comment:Fasting reference in terval Urea Nitrogen Blood (BUN) 20 7 - 25 mg/dL [facility] Creatinine 1.05 0.70 - 1.25 mg/dL [facility] Comment: For patients >49 years of age, the reference limit for Creatinine is approximately 13% higher for people identified as -[place]. GFR 74 > OR = 60 mL/min/1 [...] needs for GFR calculation. Resulting Agency Comment [id number] Yamilex Langston NP LABORATORY Final Res ult Performing Organization Address City/State/[facility] Co de Phone Number [facility] [address] [place] [address] documented in this encounter Visit Diagnoses Diagnosis Preop examination Preoperative examination, unspecified Gastroesophageal reflux disease, esophagitis presence not specified Hyperlipidemia, unspecified hyperlipidemia type Hypertension, unspecified type Benign prostatic hyperplasia, unspecified whether lower urinary tract symptoms present Mood disorder Unspecified episodic mood disorder RLS (restless legs syndrome) Restless legs syndrome (RLS) documented in this encounter Care Teams Associate Professor Of Pathology Relationship Specialty Start Date End Date Adeline Guo MD [address] [id number] PCP - General Internal Medicine 11/30/17 02/09/21 Curt Wiseman MD [address] [address] PCP - General Family Medicine 02/10/21 documented as of this encounter
--- OUTSIDE RECORDS SUMMARY | 2024-12-17 18:14 | XMS_ITS | Encounter Summary ---
Author Organization [facility] Address [address] [place] [address] Care Team Providers Care Crystalizer Name Role Phone Adeline Guo MD Primary Care Provider [phone]- [phone] Feliciano Evans MD Unavailable Unavailable Yara Harding MD Unavailable [phone] Curt Wiseman MD Primary Care Provider [phone] Reason for Referral * Surgical (Routine) - Closed Specialty Diagnoses / Procedures Referred By Contanjel t Referred To Contact Anesthesiology Diagnoses Benign essential tremor Monroe Choi MD [address] [place] [address] Phone: tel: fax: [facility] at [address] [place] [address] Phone: tel: fax: Referral ID Status Reason Start Date Expiration Date V isits Requested Visits Authorized [id number] Closed Specialty Services Required 11/14/2020 11/15/2021 1 1 Encounter Details Date Type Department Care Team (Late st Contact Info) Description 10/26/2020 Prep for Surgery [facility] Neurosurgery [address] [place] [phone] Emilee Brewer RN [address] [place], [place] [phone] Benign essential tremor (Primary Dx) Social History [...] Description 01/27/2025 1:00 PM EDT Procedure visit [facility] Neurology [address] [address] Suman Dudley MD [address] [phone] (Work) Scheduled Referrals Name Type Priority Associated Diagnoses Order Schedule Ambulatory referral to Anesthesiology Outpatient Referral Routine Benign essential tremor Ordered: 11/14/2020 documented as of this encounter Visit Diagnoses Diagnosis Benign essential tremor- Primary Essential and other specified forms of tremor documented in this encounter Care Teams Crystalizer Relationship Specialty Start Date End Date Adeline Guo MD [address] [place] [address] [place] [address] PCP - General Internal Medicine 03/10/20 10/13/24 Curt Wiseman MD [address] [place] [address] [place] [address] PCP - General Family Medicine 10/14/24 Feliciano Evans MD [address] [place] [address] Referring Provider 10/28/20 Yara Harding MD [address] [place] [address] Neurology 03/20/23 Austin Sethi [address] [place] [address] Neurology Neurology 06/07/22 documented as of this encounter
--- OUTSIDE RECORDS SUMMARY | 2024-12-17 18:14 | XMS_ITS | Encounter Summary ---
Author Organization [facility] Address [address] [place] [address] Care Team Providers Care Computer Hardware Technician Name Role Phone Adeline Guo MD Primary Care Provider [phone]- [phone] Feliciano Evans MD Unavailable Unavailable Yara Harding MD Unavailable [phone] Curt Wiseman MD Primary Care Provider [phone] Encounter Details Date Type Department Care Team (Late Contact Info) Description 04/07/2020 Scanned Document [facility] Neurosurgery [place] [address] [facility] [address] [place] [phone] Monroe Choi MD [address] [facility] [place] [address] [place] [address] Social History Tobacco Use Types Packs/Day Years [...] Description 01/27/2025 1:00 PM EDT Procedure visit [facility] Neurology [place] [address] [facility] [address] [place] [phone] Suman Dudley MD [address] [place] [address] [place] [address] documented as of this encounter Visit Diagnoses Not on filedocumented in this encounter Care Teams Computer Hardware Technician Relationship Specialty Start Date End Date Adeline Guo MD [address] [place] [address] PCP - General Internal Medicine 03/10/20 10/13/24 Curt Wiseman MD [address] [place] [address] Dr Garcia [address] [place] [address] PCP - General Family Medicine 10/14/24 Feliciano Evans MD [address] [place] [address] Referring Provider 10/28/20 Yara Harding MD [address] [place] [address] Neurology 03/20/[address] [address] Neurology Neurology 06/07/22 documented as of this encounter
--- OUTSIDE RECORDS SUMMARY | 2024-12-17 18:14 | XMS_ITS | Encounter Summary ---
Author Organization [facility] Address [address] [facility] 7t [place] [address] Care Team Providers Care Cloth Colors Examiner Name Role Phone Unavailable Primary Care Provider Unavailabl e Encounter Details Date Type Department Care Team (Late st Contact Info) Description 03/18/2024 Telephone [facility] ADULT DENTAL [address] [place], [place] [phone] Dipti Rosenthal [address] [place] [address] Social History Tobacco Use Types Packs/Day Years [...] Description 02/20/2025 1:00 PM EDT Office Visit [facility] ADULT DENTAL [address] [place] [address] Corinne Pedroza documented as of this encounter Visit Diagnoses Not on filedocumented in this encounter
--- OUTSIDE RECORDS SUMMARY | 2024-12-17 18:14 | XMS_ITS | Encounter Summary ---
Author Organization [facility] Address [address] [place] [address] Care Team Providers Care Knockout Machine Operator Name Role Phone Adeline Guo MD Primary Care Provider +- [phone] Feliciano Evans MD Unavailable Unavailable Yara Harding MD Unavailable [phone] Curt Wiseman MD Primary Care Provider [phone] Encounter Details Date Type Department Care Team (Late st Contact Info) Description 07/19/[address] [facility] Neurology [address] [place] [address] Yara Harding MD [facility] [address] [place] [address] Social History Tobacco Use Types Packs/Day Years [...] Description 01/27/2025 1:00 PM EDT Procedure visit [facility] Neurology [place] [address] [facility] 6 [place] [address] Suman Dudley MD [address] [address] documented as of this encounter Visit Diagnoses Not on filedocumented in this encounter Care Teams Knockout Machine Operator Relationship Specialty Start Date End Date Adeline Guo MD [address] [place] [address] PCP - General Internal Medicine 03/10/20 10/13/24 Curt Wiseman MD [address] [place] [address] Dr Garcia [address] [place] [address] PCP - General Family Medicine 10/14/24 Feliciano Evans MD [address] [place] [address] Referring Provider 10/28/20 Yara Harding MD [address] [place] [address] Neurology 03/20/23 Austin Sethi [address] [place] [address] Neurology Neurology 06/07/22 documented as of this encounter
--- OUTSIDE RECORDS SUMMARY | 2024-12-17 18:14 | XMS_ITS | Encounter Summary ---
Author Organization [facility] Address [address] [place] [address] Care Team Providers Care Licensed Club Manager Name Role Phone Adeline Guo MD Primary Care Provider +- [phone] Feliciano Evans MD Unavailable Unavailable Yara Harding MD Unavailable [phone] Curt Wiseman MD Primary Care Provider [phone] Encounter Details Date Type Department Care Team (Late st Contact Info) Description 02/28/2023 [facility] Neurology [address] [place] [phone] Yara Harding MD [facility] [address] [place] [address] Social History Tobacco Use Types Packs/Day Years [...] Description 01/27/2025 1:00 PM EDT Procedure visit [facility] Neurology [place] [address] [facility] 6 [place] [address] Suman Dudley MD [address] [address] documented as of this encounter Visit Diagnoses Not on filedocumented in this encounter Care Teams Licensed Club Manager Relationship Specialty Start Date End Date Adeline Guo MD [address] [place] [address] PCP - General Internal Medicine 03/10/20 10/13/24 Curt Wiseman MD [address] [place] [address] Dr Garcia [address] [place] [address] PCP - General Family Medicine 10/14/24 Feliciano Evans MD [address] [place] [address] Referring Provider 10/28/20 Yara Harding MD [address] [place] [address] Neurology 03/20/23 Austin Sethi [address] [place] [phone] Neurology Neurology 06/07/22 documented as of this encounter
--- OUTSIDE RECORDS SUMMARY | 2024-12-17 18:14 | XMS_ITS | Encounter Summary ---
Author Organization [employer] Address [address] [facility] [address] 7[address] [place] [address] Care Team Providers Care Pleater Hand Name Role Phone Unavailable Primary Care Provider Unavailabl e Reason for Visit * Reason Onset Date Comments instructions 12/28/2022 Dental Pain 12/28/2022 Encounter Details Date Type Department Care Team ([facility] st Contact Info) Description 12/28/2022 Telephone [facility] ADULT DENTAL [address] [place] [address] Grant Alex, DMD [address] [place] [address] instructions; Dental Pain Social History Tobacco Use [...] 02/20/2025 1:00 PM EDT Office Visit [facility] ADULT [facility] [address] [place] [address] Corinne Pedroza documented as of this encounter Visit Diagnoses Not on filedocumented in this encounter
== END 2024-12-17 18:30 | disposition left against medical advice (07) ==
PROVIDERS: Registered Nurse Emergency; Emergency Provider Emergency Medicine; PCP Family Medicine
DX: R05.9 Cough, unspecified (principal); Z03.818 Encounter for observation for suspected exposure to other biological agents ruled out
CPT/HCPCS: 0241U; 71046; 80053; 85025; 93005; 99283

== ENCOUNTER → 2024-12-17 14:30 | Outpatient (BNV) | payer MEDICARE, SELFPAY | PROVIDERS: Emergency Provider Emergency Medicine; PCP Family Medicine; Visit Provider Internal Medicine Cardiovascular Disease | DX: R94.31 Abnormal electrocardiogram [ECG] [EKG] (principal); R06.00 Dyspnea, unspecified | CPT/HCPCS: 93010 ==

== ENCOUNTER → 2024-12-17 14:31 | Outpatient (BNV) | payer MEDICARE, SELFPAY | PROVIDERS: PCP Family Medicine; Visit Provider Radiology Diagnostic Radiology | DX: R06.00 Dyspnea, unspecified (principal) | CPT/HCPCS: 71046 ==

== ENCOUNTER 2024-12-18 13:16 | Emergency (ER) | payer MEDICARE, SELFPAY ==
--- NOTE | ~2024-12-18 | XR_ITS ---
EXAMINATION: XR CHEST CLINICAL INFORMATION: cough, hx frequent pna COMPARISON: 12/17/2024, 07/02/2024. TECHNIQUE: 2 views of the chest were obtained. FINDINGS: Spinal stimulator device noted in the right hemithorax with leads extending into the right neck and beyond the edge of the film. The cardiac, hilar, and mediastinal contours are normal. The lungs are clear bilaterally. There is no pneumothorax or pleural effusion. There is no focal osseous or soft tissue abnormality. There is been a reverse shoulder arthroplasty. Degenerative changes in the right shoulder joint with surgical anchor present. There are spinal degenerative changes present. XR/XR chest 2V IMPRESSION: No active pulmonary disease. No interval change. Electronically signed by: Ra Caceres MD 12/18/2024 02:10 PM EDT
[2024-12-18 13:43] VITALS: BP 141/73; PULSE 89; RESP 18; TEMP 36.8; O2SAT 93; BMI 30.1
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
[2024-12-18 13:58] LABS: MANUAL DIFF FLAG NO
[2024-12-18 14:01] LABS: Basophils Absolute Auto 0.1 X10*3/uL (0.0-0.2); Basophils Percent Auto 0.7 % (0-2); Eosinophils Absolute Auto 0.5 X10*3/uL (0.0-0.4); Eosinophils Percent Auto 7.2 % (0-4); Hematocrit 41.6 % (42.0-52.0); Imm Gran Abs Auto 0.02 X10*3/uL (0.00-0.03); Imm Gran Pct Auto 0.3 % (0.0-0.4); Lymphocytes Absolute Auto 0.9 X10*3/uL (1.2-4.9); Lymphocytes Percent Auto 12.7 % (20-40); Mean Corpuscular HGB Conc 33.7 g/dl (31.0-36.0); Mean Corpuscular Hemoglobin 30.7 pg (27.0-33.0); Mean Corpuscular Volume 91.2 fL (80.0-98.0); Mean Platelet Volume 10.3 fL (9.4-12.4); Monocytes Absolute Auto 0.8 X10*3/uL (0.1-1.2); Monocytes Percent Auto 11.8 % (2-11); Neutrophils Absolute Auto 4.8 x10*3/uL (2.0-8.3); Neutrophils Percent Auto 67.3 % (45-73); Platelet Count 142 X10*3/uL (160-400); Red Blood Count 4.56 X10*6/uL (4.60-5.80); Red Cell Distribution Width 13.1 % (11.0-16.0); White Blood Count 7.1 X10*3/uL (4.8-10.8)
[2024-12-18 14:43] LABS: Alanine Aminotransferase 64 U/L (0-40); Anion Gap 13 (12-20); Aspartate Amino Transferase 47 U/L (5-37); Bilirubin Total 0.7 mg/dL (0.0-1.0); Blood Urea Nitrogen 23 mg/dL (9-16); Calcium 9.6 mg/dL (8.4-10.2); Carbon Dioxide 24 mmol/L (22-29); Chloride 109 mmol/L (96-108); Creatinine Clr Calc Pharmacy 84.3; Estimated Glomerular Filt Rate > 60; Glucose Random 94 mg/dL (60-115); Potassium 3.9 mmol/L (3.3-5.1); Sodium 142 mmol/L (135-145); Total Protein 6.9 g/dL (6.5-8.0)
[2024-12-18 14:44] LABS: Albumin Level 4.1 g/dL (3.5-5.0); Alkaline Phosphatase 89 U/L (39-117)
[2024-12-18 15:28] VITALS: TEMP 36.8; O2SAT 96
--- OUTSIDE RECORDS SUMMARY | 2024-12-18 15:37 | XMS_ITS | Referral Summary ---
Author Organization [facility] Address [address] [place] [address] Care Team Providers Care Commodity Supervisor Name Role Phone Adeline Locke Primary [...] on file Medical Devices Implanted Type Area Cardiology Clinical Nurse Specialist Device Identifier Shelf Expiration Date Model / Serial / Lot Baseplate Reverse Shoulder Prosthesis With P2 Coating 30mm - [id number] Implanted:Qty: 1 on 07/12/2019 by Andrew Butler MD at [facility] Implant [employer] 05/03/2025 [id number] / / [id number] Head Glenoid With Retaining Screw Slab Fork Shoulder Prosthesis Neutral 32mm - [id number] Implanted:Qty: 1 on 07/12/2019 by Andrew Butler MD at [facility] Implant [employer] 04/09/2025 [id number] / / [id number] Insert Socket Humeral Standard Hxe-Plus Rsp Sterile [id number] - [id number] Implanted:Qty: 1 on 07/12/2019 by Andrew Butler MD at [facility] Implant [employer] 05/31/2023 [id number] / / [id number] Stem Humeral Standard Reverse Shoulder Prosthesis [id number] - [id number] Implanted:Qty: 1 on 07/12/2019 by Andrew Butler MD at [facility] Implant [employer] 07/12/2024 [id number] / / [id number] Screw Locking Reverse Shoulder Prosthesis [id number] - [id number] Implanted:Qty: 1 on 07/12/2019 by Andrew Butler MD at [facility] Screw [employer] 03/24/2025 [id number] / / [id number] Screw Locking Bone Reverse Shoulder Prosthesis [id number] - [id number] Implanted:Qty: 1 on 07/12/2019 by Andrew Butler MD at [facility] Screw [employer] 04/19/2025 [id number] / / [id number] Screw Locking Reverse Shoulder Prosthesis [id number] - [id number] Implanted:Qty: 1 on 07/12/2019 by Andrew Butler MD at [facility] [employer] 02/27/2025 506-03-130 / / [id number] Insurance [facility] Advance Directives * Full Code (Latest Code Status on File) Date Activated Date Inactivated Comments 07/12/2019 1:40 PM 07/13/2019 8:20 PM * Full Code Date Activated Date Inactivated Comments 07/12/2019 6:13 AM 07/12/2019 1:40 PM Care Teams Commodity Supervisor Relationship Specialty Start Date End Date Adeline Locke PCP - General Pediatrics 11/14/17
--- OUTSIDE RECORDS SUMMARY | 2024-12-18 15:37 | XMS_ITS | Continuity of Care Document ---
Author Organization [facility] Address [address] [place] [address] Care Team Providers Care Carton Forming Machine Operator Name Role Phone Curt Wiseman MD Primary Care Provider Encounters Date Type Department Care Team Description 10/14/2023 [facility] Neurology [address] [facility] [address] [place] [phone] Austin Sethi MD E-prescribing Refill Request 10/10/2023 Refill [facility] Neurology [address] [facility] [address] [place] [address] Austin Sethi MD Refill Request 06/25/2023 Refill [facility] Neurology [address] [facility] [address] [place] [address] Austin Sethi MD Med Change Request; Refill Request 05/22/2023 Refill [facility] Neurology [address] [facility] [address] [place] [address] Austin Sethi MD E-prescribing Refill Request 03/20/2023 Telephone [facility] Neurology [address] [facility] [address] [place] [address] Austin Sethi MD Medication Check 02/20/2023 Refill [facility] Neurology [address] [facility] [address] [place] [address] Austin Sethi MD E-prescribing Refill Request 01/10/2023 Refill [facility] Neurology [address] [facility] [address] [place] [address] Austin Sethi MD E-prescribing Refill Request 08/08/2022 Refill [facility] Neurology [address] [facility] [address] [place] [address] Austin Sethi MD E-prescribing Refill Request 07/25/2022 Telephone [facility] Neurology [address] [facility] [address] [place] [address] Austin Sethi MD Appointment 06/07/2022 4:30 PM EDT Office Visit [facility] Neurology [address] [facility] [address] [place] [address] Austin Sethi MD Essential tremor (Primary Dx) 05/23/2022 Refill [facility] Neurology [address] [facility] [address] [place] [address] Austin Sethi MD E-prescribing Refill Request 03/11/2022 Telephone [facility] Neurology [address] [facility] [address] [place] [address] Austin Sethi MD Follow Up 03/07/2022 8:15 AM EDT Office Visit [facility] Neurology [address] [facility] [address] [place] [address] Austin Sethi MD Essential tremor (Primary Dx) 02/22/2022 Telephone [facility] Neurology [address] [facility] [address] [place] [address] Austin Sethi MD Appointment 01/19/2022 Telephone [facility] Neurology [address] [facility] [address] [place] [address] Austin Sethi MD Follow Up 12/24/2021 Refill [facility] Neurology [address] [facility] [address] [place] [address] Austin Sethi MD 12/11/2021 Refill [facility] Neurology [address] [facility] [address] [place] [address] Austin Sethi MD E-prescribing Refill Request 11/15/2021 Telephone [facility] Neurology [address] [facility] [address] [place] [address] Austin Sethi MD Follow Up (DBS adjustment ) 10/29/2021 4:00 PM EDT Office Visit [facility] Neurology [address] [facility] [address] [place] [address] Austin Sethi MD Essential tremor (Primary Dx) 10/28/2021 Refill [facility] Neurology [address] [facility] [address] [place] [address] Toma Salas MD E-prescribing Refill Request 09/26/2021 Refill [facility] Neurology [address] [facility] [address] [place] [address] Austin Sethi MD E-prescribing Refill Request 09/12/2021 Refill [facility] Neurology [address] [facility] [address] [place] [address] Austin Sethi MD E-prescribing Refill Request 07/23/2021 Telephone [facility] Neurology [address] [facility] [address] [place] [address] Lorna Prado, SONALI Appointment 05/03/2021 3:30 PM EDT Office Visit [facility] Neurology [address] [facility] [address] [place] [address] Austin Sethi MD Essential tremor (Primary Dx) 04/16/2021 Telephone [facility] Neurology [address] [facility] [address] [place] [address] Austin Sethi MD Appointment 01/29/2021 4:45 PM EDT Office Visit [facility] Neurology [address] [facility] [address] [place] [address] Austin Sethi MD Essential tremor (Primary Dx) 12/31/2020 Telephone [facility] Neurology [address] [facility] [address] [place] [address] Austin Sethi MD Follow Up (DBS) 12/25/2020 Telephone [facility] Neurology [address] [facility] [address] [place] [address] Austin Sethi MD Medication Problem (Lorazepam) 12/24/2020 Telephone [facility] Neurology [address] [facility] [address] [place] [address] Austin Sethi MD Prior Authorization Request (lorazepam) 12/22/2020 Travel 12/22/2020 4:30 PM EDT Office Visit [facility] Neurology [address] [facility] [address] [place] [address] Austin Sethi MD Essential tremor (Primary Dx); PTSD (post-traumatic stress disorder) 12/15/2020 Refill [facility] Neurology [address] [facility] [address] [place] [address] Austin Sethi MD Refill Request (Xanax 0.25) 12/10/2020 10:30 AM EDT Office Visit [facility] Neurology [address] [facility] [address] [place] [address] Austin Sethi MD Essential tremor (Primary Dx) 12/09/2020 Telephone [facility] Neurology [address] [facility] [address] [place] [address] Austin Sethi MD Follow Up (DBS) 12/08/2020 Travel 12/08/2020 8:00 AM EDT Office Visit [facility] Neurology [address] [facility] [address] [place] [address] Austin Sethi MD Essential tremor (Primary Dx) 11/25/2020 Telephone [facility] Neurology [address] [facility] [address] [place] [address] Austin Sethi MD Other 10/30/2020 Refill [facility] Neurology [address] [facility] [address] [place] [address] Austin Sethi MD E-prescribing Refill Request 10/30/2020 Telephone [facility] Neurology [address] [facility] [address] [place] [address] Austin Sethi MD Medication Problem (primidone) 10/20/2020 Travel 10/20/2020 8:00 AM EDT Consult (Initial) [facility] Neurology [address] [facility] [address] [place] [address] Austin Sethi MD Essential tremor (Primary Dx) 10/01/2020 Telephone [facility] Neurology [address] [facility] [address] [place] [address] Austin Sethi MD Appointment 03/13/2018 Orders Only [facility] Cardiology [address] [place] [address] [address] [place] [address] Jorge Pascual DO 03/13/2018 Orders Only [facility] Pre-Admission Testing [address] [place] [address] Yamilex Langston NP 03/13/2018 3:30 PM EDT Office Visit [facility] Pre-Admission Testing [address] [place] [address] Yamilex Langston NP Preop examination (Primary Dx); Gastroesophageal reflux disease, esophagitis presence not specified; Hyperlipidemia, unspecified hyperlipidemia type; Hypertension, unspecified type; Benign prostatic hyperplasia, unspecified whether lower urinary tract symptoms present; Mood disorder; RLS (restless legs syndrome); SAMMIE (obstructive sleep apnea) 03/13/2018 3:00 PM EDT Nurse Visit [facility] Pre-Admission Testing [address] [place] [address] Poonam Pedersen, RN Gastroesophageal reflux disease, esophagitis presence not specified (Primary Dx) 02/19/2018 2:45 PM EDT Consult (Initial) [facility] [place] General Surgery [address] [facility] [address] [place] [address] Trevor Lo MD Gastroesophageal reflux disease without [...] problems Social History Smoking Status as of 12/18/2024 Tobacco Use Types Packs/Day Years Used Date [...] EDT 03/13/2018 8:44 PM EDT Yamilex Langston OXYACETYLENE CUTTER CARDIOVASCULAR-WITH INBSK T RTG Final Result [facility] * PROTHROMBIN TIME (PT) (INR), BLOOD (03/13/2018 4:11 PM EDT) INR 1.0 [facility] Comment: Reference Range ? 0.9-1.1 Moderate-intensity Warfarin Therapy 2.0-3.0 Higher-intensity Warfarin Therapy ?? 3.0-4.0 PT 10.7 9.0 - 11.5 sec [facility] Comment: For more information on this test, go to: http://education.[employer]/faq/[email or web address] 03/13/2018 4:11 PM EDT 03/13/2018 9:37 PM EDT Narrative Resulting Agency Comment [id number] us Yamilex Langston OXYACETYLENE CUTTER LAB SAME DAY RESULT Final Result [facility] [address] [place] [address] * CBC INCLUDES DIFFERENTIAL AND PLATELET COUNT [...] 9:37 PM EDT Narrative Resulting Agency Comment [id number] us Yamilex Langston OXYACETYLENE CUTTER LAB SAME DAY RESULT Final Result Performing Organization Address City/State/[facility] Co de Phone Number [facility] [address] [place] [address] * HEPATIC FUNCTION PANEL (ALT,AST,ALK PH,BILI'S,TP,ALB) (03/13/2018 [...] 9:37 PM EDT Narrative Resulting Agency Comment [id number] us Yamilex Langston OXYACETYLENE CUTTER LABORATORY Final Res ult [facility] [address] [place] [address] * BASIC METABOLIC PANEL WITH (GFR) (03/13/2018 4:11 PM EDT) Glucose 98 65 - 99 mg/dL [facility] Comment:Fasting reference in terval Urea Nitrogen Blood (BUN) 20 7 - 25 mg/dL [facility] Creatinine 1.05 0.70 - 1.25 mg/dL [facility] Comment: For patients >49 years of age, the reference limit for Creatinine is approximately 13% higher for people identified as -Uzbek. GFR 74 > OR = 60 mL/min/1 [...] needs for GFR calculation. Resulting Agency Comment [id number] Yamilex Lansgton OXYACETYLENE CUTTER LABORATORY Final Res ult [facility] [address] [place] [address] * XRAY ESOPHAGUS (11/14/2017) 11/14/2017 Pricila Hagen [...] specified forms of tremor 06/07/2022 Care Teams Carton Forming Machine Operator Relationship Specialty Start Date [place] [address] PCP - General Family Medicine 02/10/21
--- OUTSIDE RECORDS SUMMARY | 2024-12-18 15:37 | XMS_ITS | Encounter Summary ---
Author Organization [facility] Address [address] [place] [address] Care Team Providers Care Disbursing Agent Name Role Phone Adeline Locke Primary Care Provider Unavailable Reason for Visit * Reason Onset Date Comments Neurology apt with Dr. Kitchen 11/30/2021 Encounter Details Date Type Department Care Team (Late st Contact Info) Description 11/30/2021 Telephone [facility] Neurology Clinic [address] [place] [address] [phone] Telephone Intake, Staff Neurology apt with Dr. [...] scheduling. A good call back number is [phone]. documented in this encounter Plan of Treatment Not on file documented as of this encounter Visit Diagnoses Not on filedocumented in this encounter Care Teams Disbursing Agent Relationship Specialty Start Date End Date Adeline Locke PCP - General Pediatrics 11/14/17 documented as of this encounter
--- OUTSIDE RECORDS SUMMARY | 2024-12-18 15:37 | XMS_ITS | Encounter Summary ---
Author Organization [facility] Address [address] [place] [address] Care Team Providers Care Dairy Laboratory Technician Name Role Phone Adeline Guo MD Primary Care Provider +- [phone] Feliciano Evans MD Unavailable Unavailable Yara Harding MD Unavailable [phone] Curt Wiseman MD Primary Care Provider [phone] Encounter Details Date Type Department Care Team (Late st Contact Info) Description 07/19/2024 Telephone [facility] Neurology [address] [phone] Suman Dudley MD [address] [place] [address] Social History Tobacco Use Types Packs/Day Years [...] wants the appt * Telephone Encounter - eLta Price [place] - 07/19/2024 10:55 AM EST [...] Description 01/27/2025 1:00 PM EDT Procedure visit [facility] Neurology [address] [address] Suman Dudley MD [address] [place] [address] documented as of this encounter Visit Diagnoses Not on filedocumented in this encounter Care Teams Dairy Laboratory Technician Relationship Specialty Start Date End Date Adeline Guo MD [address] [place] [address] PCP - General Internal Medicine 03/10/20 10/13/24 Curt Wiseman MD [address] [place] [address] Dr Garcia [facility] [place] [address] PCP - General Family Medicine 10/14/24 Feliciano Evans MD [address] [place] [address] Referring Provider 10/28/20 Yara Harding MD [address] [place] [address] Neurology 03/20/[address] [address] Neurology Neurology 06/07/22 documented as of this encounter
--- OUTSIDE RECORDS SUMMARY | 2024-12-18 15:37 | XMS_ITS | Clinical Summary ---
Author Organization [facility] Address [address] [place] [address] Care Team Providers Care Sod Farmer Name Role Phone Adeline Locke Primary Care [...] this topic Medical Devices Implanted Type Area Back Tacker Device Identifier Shelf Expiration Date Model / Serial / Lot Baseplate Reverse Shoulder Prosthesis With P2 Coating 30mm - [id number] Implanted:Qty: 1 on 07/12/2019 by Andrew Butler MD at [facility] Implant [employer] 05/03/2025 [id number] / / [id number] Head Glenoid With Retaining Screw [place] Shoulder Prosthesis Neutral 32mm - [id number] Implanted:Qty: 1 on 07/12/2019 by Andrew Butler MD at [facility] Implant [employer] 04/09/2025 [id number] / / [id number] Insert Socket Humeral Standard Hxe-Plus Rsp Sterile [id number] - [id number] Implanted:Qty: 1 on 07/12/2019 by Andrew Butler MD at [facility] Implant [employer] 05/31/2023 [id number] / / [id number] Stem Humeral Standard Reverse Shoulder Prosthesis [id number] - [id number] Implanted:Qty: 1 on 07/12/2019 by Andrew Butler MD at [facility] Implant [employer] 07/12/2024 530-10-108 / / [id number] Screw Locking Reverse Shoulder Prosthesis [id number] - [id number] Implanted:Qty: 1 on 07/12/2019 by Andrew Butler MD at [facility] Screw [employer] 03/24/2025 506-03-130 / / [id number] Screw Locking Bone Reverse Shoulder Prosthesis [id number] - [id number] Implanted:Qty: 1 on 07/12/2019 by Andrew Butler MD at [facility] Screw [employer] 04/19/2025 [id number] / / [id number] Screw Locking Reverse Shoulder Prosthesis [id number] - [id number] Implanted:Qty: 1 on 07/12/2019 by Andrew Butler MD at [facility] Screw [employer] 02/27/2025 506-03-130 / / [id number] Insurance [facility] Advance Directives * Full Code (Latest Code Status on File) Date Activated Date Inactivated Comments 07/12/2019 1:40 PM 07/13/2019 8:20 PM * Full Code Date Activated Date Inactivated Comments 07/12/2019 6:13 AM 07/12/2019 1:40 PM Care Teams Sod Farmer Relationship Specialty Start Date End Date Adeline Locke PCP - General Pediatrics 11/14/17
--- OUTSIDE RECORDS SUMMARY | 2024-12-18 15:37 | XMS_ITS | Encounter Summary ---
Author Organization [facility] Address [address] [place] [address] Care Team Providers Care Production Line Mechanic Name Role Phone Adeline Guo MD Primary Care Provider +- [phone] Feliciano Evans MD Unavailable Unavailable Yara Harding MD Unavailable [phone] Curt Wiseman MD Primary Care Provider [phone] Encounter Details Date Type Department Care Team (Late Contact Info) Description 08/05/2020 Scanned Document [facility] Neurosurgery [place] [address] [phone] Monroe Choi MD [address] [address] Social History Tobacco Use Types Packs/Day Years [...] 01/27/2025 1:00 PM EDT Procedure visit [facility] Neurology [address] [phone] Suman Dudley MD [address] [place] [address] [address] documented as of this encounter Visit Diagnoses Not on filedocumented in this encounter Care Teams Production Line Mechanic Relationship Specialty Start Date End Date Adeline Guo MD [address] [place] [address] PCP - General Internal Medicine 03/10/20 10/13/24 Curt Wiseman MD [address] [place] [address] PCP - General Family Medicine 10/14/24 Feliciano Evans MD [address] [place] [address] Referring Provider 10/28/20 Yara Harding MD [address] [place] [address] Neurology 03/20/23 Austin Sethi [address] [place] [address] Neurology Neurology 06/07/22 documented as of this encounter
--- OUTSIDE RECORDS SUMMARY | 2024-12-18 15:38 | XMS_ITS | Encounter Summary ---
Author Organization [facility] Address [address] [place] [address] Care Team Providers Care Ediscovery Project Manager Name Role Phone Adeline Guo MD Primary Care Provider +- [phone] Feliciano Evans MD Unavailable Unavailable Yara Harding MD Unavailable [phone] Curt Wiseman MD Primary Care Provider [phone] Encounter Details Date Type Department Care Team (Late Contact Info) Description 06/01/2022 Scanned Document [facility] Neurosurgery [address] [place] [address] Neurosurgery, Scan Social History Tobacco Use [...] Care Team ([facility] Contact Info) Description 01/27/2025 1:00 PM EDT Procedure visit [facility] Neurology [address] [address] Suman Dudley MD [address] [address] documented as of this encounter Visit Diagnoses Not on filedocumented in this encounter Care Teams Ediscovery Project Manager Relationship Specialty Start Date End Date Adeline Guo MD [address] [place] [address] PCP - General Internal Medicine 03/10/20 10/13/24 Curt Wiseman MD [address] [place] [address] Dr Garcia [address] [place] [address] PCP - General Family Medicine 10/14/24 Feliciano Evans MD [address] [place] [address] Referring Provider 10/28/20 Yara Harding MD [address] [place] [address] Neurology 03/20/23 Austin Sethi [address] [place] [address] Neurology Neurology 06/07/22 documented as of this encounter
--- OUTSIDE RECORDS SUMMARY | 2024-12-18 15:38 | XMS_ITS | Encounter Summary ---
Author Organization [facility] Address [address] [place] [address] Care Team Providers Care Telephone Directory Deliverer Name Role Phone Adeline Guo MD Primary Care Provider +- [phone] Feliciano Evans MD Unavailable Unavailable Yara Harding MD Unavailable [phone] Curt Wiseman MD Primary Care Provider [phone] Encounter Details Date Type Department Care Team (Late st Contact Info) Description 10/28/2021 Scanned Document [facility] Neurosurgery [address] [address] Monroe Choi MD [address] [place] [address] Social History Tobacco Use Types Packs/Day [...] Description 01/27/2025 1:00 PM EDT Procedure visit [facility] Neurology [address] [place] [address] Suman Dudley MD [address] [place] [address] [place] [address] documented as of this encounter Visit Diagnoses Not on filedocumented in this encounter Care Teams Telephone Directory Deliverer Relationship Specialty Start Date End Date Adeline Guo MD [address] [place] [address] PCP - General Internal Medicine 03/10/20 10/13/24 Curt Wiseman MD [address] [place] [address] [place] [address] PCP - General Family Medicine 10/14/24 Feliciano Evans MD [address] [place] [address] Referring Provider 10/28/20 Yara Harding MD [address] [place] [address] Neurology 03/20/23 Austin Sethi [address] [place] [address] Neurology Neurology 06/07/22 documented as of this encounter
--- OUTSIDE RECORDS SUMMARY | 2024-12-18 15:38 | XMS_ITS | Encounter Summary ---
Author Organization [facility] Address [address] [place] [address] Care Team Providers Care Tower Erector Name Role Phone Adeline Guo MD Primary Care Provider +- [phone] Feliciano Evans MD Unavailable Unavailable Yara Harding MD Unavailable [phone] Curt Wiseamn MD Primary Care Provider [phone] Encounter Details Date Type Department Care Team (Late st Contact Info) Description 05/20/2021 Scanned Document [facility] Neurosurgery [place] 85 [facility] [address] [place] [phone] Monroe Choi MD 85 [facility] [place] [address] [place] [address] Social History Tobacco Use Types Packs/Day Years [...] Description 01/27/2025 1:00 PM EDT Procedure visit [facility] Neurology [place] [address] [facility] [address] [place] [address] Suman Dudley MD [address] [address] documented as of this encounter Visit Diagnoses Not on filedocumented in this encounter Care Teams Tower Erector Relationship Specialty Start Date End Date Adeline Guo MD [address] [place] [address] PCP - General Internal Medicine 03/10/20 10/13/24 Curt Wiseman MD [address] [place] [address] Dr Garcia [address] [place] [address] PCP - General Family Medicine 10/14/24 Feliciano Evans MD [address] [place] [address] Referring Provider 10/28/20 Yara Harding MD [address] [place] [address] Neurology 03/20/23 Austin eSthi [address] [place] [address] [id number] Neurology Neurology 06/07/22 documented as of this encounter
--- OUTSIDE RECORDS SUMMARY | 2024-12-18 15:38 | XMS_ITS | Encounter Summary ---
Author Organization [facility] Address [address] [place] [address] Care Team Providers Care Long Term Care Phlebotomist Name Role Phone Adeline Guo MD Primary Care Provider +- [phone] Feliciano Evans MD Unavailable Unavailable Yara Harding MD Unavailable [phone] Curt Wiseman MD Primary Care Provider [phone] Encounter Details Date Type Department Care Team (Late Contact Info) Description 06/18/2020 Scanned Document [facility] Neurosurgery [place] [address] [facility] [address] [place] [phone] Monroe Choi MD [address] [facility] [place] [address] [place] [address] Social History Tobacco Use Types Packs/Day Years [...] Description 01/27/2025 1:00 PM EDT Procedure visit [facility] Neurology [place]l 35 [facility] [address] [place] [address] Suman Dudley MD [address] [address] documented as of this encounter Visit Diagnoses Not on filedocumented in this encounter Care Teams Long Term Care Phlebotomist Relationship Specialty Start Date End Date Adeline Guo MD 395 [place] [address] PCP - General Internal Medicine 03/10/20 10/13/24 Curt Wiseman MD [address] [place] [address] Dr Garcia [address] [place] [address] PCP - General Family Medicine 10/14/24 Feliciano Evans MD [address] [place] [address] Referring Provider 10/28/20 Yara Harding MD [address] [place] [address] Neurology 03/20/[address] [address] Neurology Neurology 06/07/22 documented as of this encounter
--- OUTSIDE RECORDS SUMMARY | 2024-12-18 15:38 | XMS_ITS | Encounter Summary ---
Author Organization [facility] Address [address] [place] [address] Care Team Providers Care Certified Nurse Aide Name Role Phone Pcp, No Primary Care Provider Adeline Moe MD Primary Care Provider +- [phone] Feliciano Evans MD Unavailable Unavailable Yara Harding MD Unavailable +-[phone] Curt Wiseman MD Primary Care Provider [phone]- [phone] Encounter Details Date Type Department Care Team (Late st Contact Info) Description 02/25/2020 Scanned Document [facility] Neurosurgery [place] [address] [phone] Monroe Choi MD 85 [facility] [place] [address] [place] [address] Social History Tobacco Use Types Packs/Day Years [...] 01/27/2025 1:00 PM EDT Procedure visit [facility] Neurology [address] 6 [place] [address] Suman Dudley MD 35 [facility] 6 [place] [address] documented as of this encounter Visit Diagnoses Not on filedocumented in this encounter Care Teams Certified Nurse Aide Relationship Specialty Start Date End Date Pcp, No [address] [place] [address] PCP - General 11/26/18 03/09/20 Adeline Guo MD 395 [place] [address] PCP - General Internal Medicine 03/10/20 10/13/24 Curt Wiseman MD [address] [place] [address] Dr Garcia [address] [place] [address] PCP - General Family Medicine 10/14/24 Feliciano Evans MD [address] [place] [address] Referring Provider 10/28/20 Yara Harding MD [address] [place] [address] Neurology 03/20/23 Austin Sethi [address] [place] [address] Neurology Neurology 06/07/22 documented as of this encounter
--- OUTSIDE RECORDS SUMMARY | 2024-12-18 15:38 | XMS_ITS | Encounter Summary ---
Author Organization [employer] [facility] Address [address] [place] [address] 7t [place] [address] Care Team Providers Care Burial Vault Deliverer And Installer Name Role Phone Unavailable Primary Care Provider Unavailabl e Reason for Visit * Reason Onset Date Comments Med Refill 10/08/2024 Encounter Details Date Type Department Care Team (Late st Contact Info) Description 10/08/[address] [facility] ADULT DENTAL 505 [place] [address] Rocío Castillo DDS 230 [place], [place] [phone] Social History Tobacco Use Types Packs/Day Years [...] Description 02/20/2025 1:00 PM EDT Office Visit [facility] ADULT DENTAL 505 [place] [address] Corinne Pedroza documented as of this encounter Visit Diagnoses Not on filedocumented in this encounter
--- OUTSIDE RECORDS SUMMARY | 2024-12-18 15:38 | XMS_ITS | Encounter Summary ---
Author Organization [employer] Address [address] [place] [address] 7t [place] [address] Care Team Providers Care Printer'S Assistant Name Role Phone Unavailable Primary Care Provider Unavailabl e Encounter Details Date Type Department Care Team (Latest Contact Info) Description 04/13/2022 Abstract [facility] CONVERSIONS Dental, Provider, DDS Social History [...] Description 02/20/2025 1:00 PM EDT Office Visit [facility] ADULT DENTAL [address] [place] [address] Corinne Pedroza documented as of this encounter Visit Diagnoses Not on filedocumented in this encounter
--- OUTSIDE RECORDS SUMMARY | 2024-12-18 15:38 | XMS_ITS | Encounter Summary ---
Author Organization [facility] Address 5 [place] [address] Care Team Providers Care Psychological Operations Officer Name Role Phone Adeline Guo MD Primary Care Provider +1- [phone] Curt Wiseman MD Primary Care Provider [phone]- [phone] Encounter Details Date Type Department Care Team ([facility] st Contact Info) Description 03/13/2018 Orders Only [facility] Pre-Admission Testing [address] [place] [address] Yamilex Langston NP Social History Tobacco Use [...] of this encounter Procedures * Due to [place] state law, this organization might not be [...] in this encounter Results * Due to [place] state law, this organization might not be [...] 03/13/2018 8:44 PM EDT us Yamilex Langston [facility]ICE [facility] SPECIALIST CARDIOVASCULAR-WITH INBSK T RTG Final Result [facility] * PROTHROMBIN TIME (PT) (INR), BLOOD (03/13/2018 4:11 PM EDT) INR 1.0 [facility] Comment: Reference Range ? 0.9-1.1 Moderate-intensity Warfarin Therapy 2.0-3.0 Higher-intensity Warfarin Therapy ?? 3.0-4.0 PT 10.7 9.0 - 11.5 sec [facility] Comment: For more information on this test, go to: http://education.Loudr/faq/[email or web address] 03/13/2018 4:1 1 PM EDT 03/13/2018 9:37 PM EDT Narrative Resulting Agency Comment [id number] Yamilex Langston SERVICE CENTER SPECIALIST LAB SAME DAY RESULT Final Result [facility] [address] [place] [address] * HEPATIC FUNCTION PANEL (ALT,AST,ALK PH,BILI'S,TP,ALB) (03/13/2018 4:11 PM EDT) Pathologist [facility] Protein Total (Serum) 6.7 6.1 - 8.1 [...] 9:37 PM EDT Narrative Resulting Agency Comment [id number] Yamilex Langston SERVICE CENTER SPECIALIST LABORATORY Final Res ult [facility] [address] [place] [address] * CBC INCLUDES DIFFERENTIAL AND PLATELET COUNT [...] 9:37 PM EDT Narrative Resulting Agency Comment [id number] Yamilex Langston SERVICE CENTER SPECIALIST LAB SAME DAY RESULT Final Result [facility] [address] [place] [address] * BASIC METABOLIC PANEL WITH (GFR) (03/13/2018 4:11 PM EDT) Glucose 98 65 - 99 mg/dL [facility] Comment:Fasting reference in terval Urea Nitrogen Blood (BUN) 20 7 - 25 mg/dL [facility] Creatinine 1.05 0.70 - 1.25 mg/dL [facility] Comment: For patients >49 years of age, the reference limit for Creatinine is approximately 13% higher for people identified as -[place]. GFR 74 > OR = 60 mL/min/1 [...] needs for GFR calculation. Resulting Agency Comment [id number] Yamilex Langston NP LABORATORY Final Res ult Performing Organization Address City/State/[facility] Co de Phone Number [facility] [address] [place] [address] documented in this encounter Visit Diagnoses Diagnosis Preop examination Preoperative examination, unspecified Gastroesophageal reflux disease, esophagitis presence not specified Hyperlipidemia, unspecified hyperlipidemia type Hypertension, unspecified type Benign prostatic hyperplasia, unspecified whether lower urinary tract symptoms present Mood disorder Unspecified episodic mood disorder RLS (restless legs syndrome) Restless legs syndrome (RLS) documented in this encounter Care Teams Psychological Operations Officer Relationship Specialty Start Date End Date Adeline Guo MD [address] [phone] PCP - General Internal Medicine 11/30/17 02/09/21 Curt Wiseman MD [address] [address] PCP - General Family Medicine 02/10/21 documented as of this encounter
--- OUTSIDE RECORDS SUMMARY | 2024-12-18 15:38 | XMS_ITS | Encounter Summary ---
Author Organization [facility] Address [address] [place] [address] Care Team Providers Care Bone Tender Name Role Phone Adeline Guo MD Primary Care Provider [phone]- [phone] Feliciano Evans MD Unavailable Unavailable Yara Harding MD Unavailable [phone] Curt Wiseman MD Primary Care Provider [phone] Reason for Referral * Surgical (Routine) - Closed Specialty Diagnoses / Procedures Referred By Contanjel t Referred To Contact Anesthesiology Diagnoses Benign essential tremor Monroe Choi MD [address] [place] [address] Phone: tel: fax: [facility] at [address] 5th [place] [address] Phone: tel: fax: Referral ID Status Reason Start Date Expiration Date V isits Requested Visits Authorized [id number] Closed Specialty Services Required 11/14/2020 11/15/2021 1 1 Encounter Details Date Type Department Care Team (Late st Contact Info) Description 10/26/2020 Prep for Surgery [facility] Neurosurgery [address] [place] [phone] Emilee Brew[address] RN [address] [place], [place] [phone] Benign essential tremor (Primary Dx) Social History [...] Description 01/27/2025 1:00 PM EDT Procedure visit [facility] Neurology [address] [address] Suman Dudley MD [address] [place] [phone] (Work) Scheduled Referrals Name Type Priority Associated Diagnoses Order Schedule Ambulatory referral to Anesthesiology Outpatient Referral Routine Benign essential tremor Ordered: 11/14/2020 documented as of this encounter Visit Diagnoses Diagnosis Benign essential tremor- Primary Essential and other specified forms of tremor documented in this encounter Care Teams Bone Tender Relationship Specialty Start Date End Date Adeline Guo MD [address] [place] [address] [place] [address] PCP - General Internal Medicine 03/10/20 10/13/24 Curt Wiseman MD [address] [place] [address] [place] [address] PCP - General Family Medicine 10/14/24 Feliciano Evans MD 395 [place] [address] Referring Provider 10/28/20 Yara Harding MD [address] [place] [address] Neurology 03/20/23 Austin Sethi [address] [place] [address] Neurology Neurology 06/07/22 documented as of this encounter
--- OUTSIDE RECORDS SUMMARY | 2024-12-18 15:38 | XMS_ITS | Encounter Summary ---
Author Organization [facility] Address [address] [place] [address] Care Team Providers Care Buttonhole Marker Name Role Phone Adeline Guo MD Primary Care Provider +- [phone] Feliciano Evans MD Unavailable Unavailable Yara Harding MD Unavailable +-[phone] Curt Wiseman MD Primary Care Provider [phone] Encounter Details Date Type Department Care Team (Late st Contact Info) Description 07/19/2022 Telephone [facility] Neurology [address] [place] [address] Yara Harding MD [facility] [address] [place] [address] Social History Tobacco Use Types Packs/Day Years [...] Description 01/27/2025 1:00 PM EDT Procedure visit [facility] Neurology Jl 35 [facility] 6 [place] [address] Suman Dudley MD [address] [address] documented as of this encounter Visit Diagnoses Not on filedocumented in this encounter Care Teams Buttonhole Marker Relationship Specialty Start Date End Date Adeline Guo MD 395 [place] [address] PCP - General Internal Medicine 03/10/20 10/13/24 Curt Wiseman MD [address] [place] [address] Dr Garcia [address] [place] [address] PCP - General Family Medicine 10/14/24 Feliciano Evans MD 395 [place] [address] Referring Provider 10/28/20 Yara Harding MD [address] [place] [address] Neurology 03/20/23 Austin Sethi [address] [place] [address] Neurology Neurology 06/07/22 documented as of this encounter
--- OUTSIDE RECORDS SUMMARY | 2024-12-18 15:38 | XMS_ITS | Encounter Summary ---
Author Organization [facility] Address [address] [place] [address] Care Team Providers Care Well Puller Name Role Phone Adeline Guo MD Primary Care Provider +- [phone] Feliciano Evans MD Unavailable Unavailable Yara Harding MD Unavailable [phone] Curt Wiseman MD Primary Care Provider [phone] Encounter Details Date Type Department Care Team (Late Contact Info) Description 04/08/2020 Scanned Document [address] [phone] Monroe Choi MD [address] [place] [address] Social History Tobacco Use Types Packs/Day Years [...] Description 01/27/2025 1:00 PM EDT Procedure visit [facility] Neurology Jl 35 [facility] [address] [place] [address] Suman Dudley MD [address] [address] documented as of this encounter Visit Diagnoses Not on filedocumented in this encounter Care Teams Well Puller Relationship Specialty Start Date End Date Adeline Guo MD 395 [place] [address] PCP - General Internal Medicine 03/10/20 10/13/24 Curt Wiseman MD [address] [place] [address] Dr Garcia [address] [place] [address] PCP - General Family Medicine 10/14/24 Feliciano Evans MD [address] [place] [address] Referring Provider 10/28/20 Yara Harding MD [address] [place] [address] Neurology 03/20/[address] [address] Neurology Neurology 06/07/22 documented as of this encounter
--- OUTSIDE RECORDS SUMMARY | 2024-12-18 15:38 | XMS_ITS | Encounter Summary ---
Author Organization [facility] Address [address] [place] [address] Care Team Providers Care Social Services Technician Name Role Phone Adeline Guo MD Primary Care Provider +- [phone] Feliciano Evans MD Unavailable Unavailable Yara Harding MD Unavailable [phone] Curt Wiseman MD Primary Care Provider [phone] Encounter Details Date Type Department Care Team (Late st Contact Info) Description 11/26/2020 Prep for Surgery [facility] Pre-Admission Testing Center [address] [facility] 601 [place] [address] Mariama Allred, OCCUPATIONAL MEDICINE OFFICER [address] [place] [address] Social History Tobacco Use Types [...] [facility] 35 [facility] [address] [place] [address] Suman Dudley MD [address] [address] documented as of this encounter Visit Diagnoses Not on filedocumented in this encounter Care Teams Social Services Technician Relationship Specialty Start Date End Date Adeline Guo MD 395 [place] [address] PCP - General Internal Medicine 03/10/20 10/13/24 Curt Wiseman MD [address] [place] [address] Dr Garcia [address] [place] [address] PCP - General Family Medicine 10/14/24 Feliciano Evans MD [address] [place] [address] Referring Provider 10/28/20 Yara Harding MD [address] [place] [address] Neurology 03/20/23 Austin Sethi [address] [place] [address] Neurology Neurology 06/07/22 documented as of this encounter
--- OUTSIDE RECORDS SUMMARY | 2024-12-18 15:38 | XMS_ITS | Encounter Summary ---
Author Organization [facility] Address [address] [place] [address] 7t [place] [address] Care Team Providers Care Printer Small Print Shop Name Role Phone Unavailable Primary Care Provider Unavailabl e Reason for Visit * Reason Onset Date Comments medication pre med 07/17/2023 Encounter Details Date Type Department Care Team (Late st Contact Info) Description 07/17/2023 Telephone [facility] ADULT DENTAL [address] [place] [address] Art Poe DDS [address] [place], [place] [phone] medication pre med Social History Tobacco Use [...] Description 02/20/2025 1:00 PM EDT Office Visit [facility] ADULT DENTAL [address] [place] [address] Corinne Pedroza documented as of this encounter Visit Diagnoses Not on filedocumented in this encounter
--- OUTSIDE RECORDS SUMMARY | 2024-12-18 15:38 | XMS_ITS | Clinical Summary ---
Author Organization 175 [facility] Address [address] [place] [address] Phone Care Team Providers Care Sdc Teacher Name Role Phone Curt Wiseman MD Primary Care Provider [phone] Allergies No known active allergies Medications linaCLOtide [...] sleep apnea hypopnea, severe 016 Overview (07/08/2024): [facility] Home Polysomnogram: Date 12/08/2015; AHI 8, Unclassified apneas 0; Obstructive apneas 0; Central apneas 0; Mixed apneas 0; hypopneas 20; average oxygen saturation 94% (lowest 87% without saturations <88% for 5% or more of study) [facility] Polysomnogram treatment study. Date 02/28/2018. SE 84 % SM 86 %; spent 16 % of the study in REM. On CPAP @ 8; RDI 0.7 (AHI 0.3), Central apneas 0; Obstructive apneas 0; Mixed apneas 0; hypopneas 1; RERAs 1; and, average oxygen saturation was 93%. For the entire study, PLMs ~20. 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, [facility] V28) 05/21/2014 Lower back pain 05/21/2014 Encounters Date Type Department Care Team Description 11/22/2024 3:00 PM EDT Office Visit [facility] Surgery [facility] [place] [address] [facility] [address] [place] [address] Michelle Watson PA Left arm pain (Primary Dx) 11/05/2024 3:50 PM EDT - 11/05/2024 11:59 PM EDT Hospital Encounter [facility] Neurodiagnostic [address] [place] [address] Paresthesias in left hand Discharge Disposition: Home or Self Care from Last 3 Months Immunizations Name Administration Dates Next Due Influenza trivalent, 0.5mL (Fluad) 65yo and olde r 05/24/2019 Influenza trivalent, 0.5mL, preservative free (Fluarix; FluLaval; Fluzone) ages 6mo and older (Afluria) 3 years and older 07/09/2018,06/04/2014 [facility] SARS-CoV-2 COVID-19, mRNA, LNP-S, preservative free 10/08/2020,09/17/2020 [...] patient OTHER SURGICAL HISTORY 07/12/2019 Right PROCEDURE: LA ARTHROPLASTY GLENOHUMERAL JOINT TOTAL SHOULDER Medical History [...] 05/21/2014 DX:Erectile dysfunction IgA deficiency, 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, [facility]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 - [facility] [address] ??[id number] Security Tech: Annette Meier MD, Phone: ??[phone] us Feliciano Evans MD LAB BLOOD ORDERABLES Final Res ult [facility] 1 * Annual BMP Blood Test (10/22/2020) Pathologist [facility] Annual BMP Blood Test abstracted us Historical Provider HEALTH MAINTENANCE Final Result from Last 3 Months or Most Recently Relevant to Health Maintenance Insurance [employer] [address] [place] [address] [employer] [address] [place] [address] Care Teams Sdc Teacher Relationship Specialty Start Date End Date Curt Wiseman MD [address] [place] [address] PCP - General Family Medicine 07/22/24
--- OUTSIDE RECORDS SUMMARY | 2024-12-18 15:38 | XMS_ITS | Encounter Summary ---
Author Organization [facility] Address [address] [place] [address] Care Team Providers Care Holder Pile Driving Name Role Phone Adeline Guo MD Primary Care Provider +- [phone] Feliciano Evans MD Unavailable Unavailable Yara Harding MD Unavailable [phone] Curt Wiseman MD Primary Care Provider [phone] Encounter Details Date Type Department Care Team (Late st Contact Info) Description 05/31/2022 Scanned Document [facility] Neurosurgery [place] 85 [facility] [address] [place] [phone] Monroe Choi MD 85 [facility] [place] [address] [place] [address] Social History Tobacco Use Types Packs/Day Years [...] 01/27/2025 1:00 PM EDT Procedure visit [facility] Neurology Jl 35 [facility] [address] [place] [address] Suman Dudley MD [address] [address] documented as of this encounter Visit Diagnoses Not on filedocumented in this encounter Care Teams Holder Pile Driving Relationship Specialty Start Date End Date Adeline Guo MD 395 [place] [address] PCP - General Internal Medicine 03/10/20 10/13/24 Curt Wiseman MD [address] [place] [address] Dr Garcia [address] [place] [address] PCP - General Family Medicine 10/14/24 Feliciano Evans MD 395 [place] [address] Referring Provider 10/28/20 Yara Harding MD 395 [place] [address] Neurology 03/20/23 Austin Sethi [address] [place] [address] Neurology Neurology 06/07/22 documented as of this encounter
--- OUTSIDE RECORDS SUMMARY | 2024-12-18 15:38 | XMS_ITS | Encounter Summary ---
Author Organization [facility] Address [address] [facility] 7t [place] [address] Care Team Providers Care Draw Fire Operator Name Role Phone Unavailable Primary Care Provider Unavailabl e Encounter Details Date Type Department Care Team (Late st Contact Info) Description 03/18/2024 Telephone [facility] ADULT DENTAL [address] [place], [place] [phone] Dipti Rosenthal [address] [place] [address] Social History Tobacco Use Types Packs/Day Years [...] Description 02/20/2025 1:00 PM EDT Office Visit [facility] ADULT DENTAL [address] [place] [address] Corinne Pedroza documented as of this encounter Visit Diagnoses Not on filedocumented in this encounter
--- OUTSIDE RECORDS SUMMARY | 2024-12-18 15:38 | XMS_ITS | Encounter Summary ---
Author Organization Formerly [facility] Address [address] [place] [address] Care Team Providers Care Mobile Ui Designer Name Role Phone Adeline Guo MD Primary Care Provider +- [phone] Feliciano Evans MD Unavailable Unavailable Yara Harding MD Unavailable [phone] Curt Wiseman MD Primary Care Provider [phone] Encounter Details Date Type Department Care Team (Late st Contact Info) Description 02/28/2023 [facility] Neurology [address] [place] [address] Yara Harding MD IS [facility] S [address] [place] [address] Social History Tobacco Use Types Packs/Day Years [...] 1:00 PM EDT Procedure visit [facility] Neurology [place] 35 [facility] 6 [place] [address] Suman Dudley MD [address] [address] documented as of this encounter Visit Diagnoses Not on filedocumented in this encounter Care Teams Mobile Ui Designer Relationship Specialty Start Date End Date Adeline Guo MD [address] [place] [address] PCP - General Internal Medicine 03/10/20 10/13/24 Curt Wiseman MD [address] [place] [address] Dr Garcia [address] [place] [address] PCP - General Family Medicine 10/14/24 Feliciano Evans MD [address] [place] [address] Referring Provider 10/28/20 Yara Harding MD [address] [place] [address] Neurology 03/20/23 Austin Sethi [address] [place] [address] [id number] Neurology Neurology 06/07/22 documented as of this encounter
--- OUTSIDE RECORDS SUMMARY | 2024-12-18 15:38 | XMS_ITS | Encounter Summary ---
Author Organization Formerly [facility] Address [address] [place] [address] Care Team Providers Care Parts Administrator Name Role Phone Adeline Gou MD Primary Care Provider +- [phone] Feliciano Evans MD Unavailable Unavailable Yara Harding MD Unavailable [phone] Curt Wiseman MD Primary Care Provider [phone] Encounter Details Date Type Department Care Team (Late Contact Info) Description 04/07/2020 Scanned Document [facility] Neurosurgery [place] 85 [facility] [address] [place] [phone] Monroe Choi MD 85 [facility] [place] [address] [place] [address] Social History Tobacco Use Types Packs/Day Years [...] Description 01/27/2025 1:00 PM EDT Procedure visit [facility] [place]rology [place] 35 [facility] [address] [place] [address] Suman Dudley MD [address] [place] [address] [place] [address] documented as of this encounter Visit Diagnoses Not on filedocumented in this encounter Care Teams Parts Administrator Relationship Specialty Start Date End Date Adeline Guo MD 395 [place] [address] PCP - General Internal Medicine 03/10/20 10/13/24 Curt Wiseman MD [address] [place] [address] Dr Garcai [address] [place] [address] PCP - General Family Medicine 10/14/24 Feliciano Evans MD [address] [place] [address] Referring Provider 10/28/20 Yara Harding MD [address] [place] [address] Neurology 03/20/[address] [address] Neurology Neurology 06/07/22 documented as of this encounter
--- OUTSIDE RECORDS SUMMARY | 2024-12-18 15:38 | XMS_ITS | Encounter Summary ---
Author Organization [employer] Address [address] 7t [place] [address] Care Team Providers Care Clinical Reimbursement Specialist Name Role Phone Unavailable Primary Care Provider Unavailabl e Reason for Visit * Reason Onset Date Comments instructions 12/28/2022 Dental Pain 12/28/2022 Encounter Details Date Type Department Care Team ([facility] st Contact Info) Description 12/28/2022 Telephone [facility] ADULT DENTAL [address] [place] [address] Grant Alex, DMD [address] [place] [address] instructions; Dental Pain Social History Tobacco Use [...] Visit [facility] ADULT DENTAL [address] [place] [address] Corinne Pedroza documented as of this encounter Visit Diagnoses Not on filedocumented in this encounter
--- OUTSIDE RECORDS SUMMARY | 2024-12-18 15:38 | XMS_ITS | Encounter Summary ---
Author Organization [facility] Address [address] [place] [address] Care Team Providers Care Lesson Instructor Name Role Phone Adeline Guo MD Primary Care Provider +- [phone] Feliciano Evans MD Unavailable Unavailable Yara Harding MD Unavailable [phone] Curt Wiseman MD Primary Care Provider [phone] Encounter Details Date Type Department Care Team (Late st Contact Info) Description 10/30/2020 Scanned Document [facility] Neurology [address] [place] [phone] Angelica Zuluaga, [facility] 35 [facility] [address] [place] [id number] Social History Tobacco Use Types Packs/Day Years [...] Description 01/27/2025 1:00 PM EDT Procedure visit [facility] Neurology [place] 35 [facility] 6 [place] [address] Suman Dudley MD [address] [address] documented as of this encounter Visit Diagnoses Not on filedocumented in this encounter Care Teams Lesson Instructor Relationship Specialty Start Date End Date Adeline Guo MD 395 [place] [address] PCP - General Internal Medicine 03/10/20 10/13/24 Curt Wiseman MD [address] [place] [address] [place] [address] PCP - General Family Medicine 10/14/24 Feliciano Evans MD 395 [place] [address] Referring Provider 10/28/20 Yara Harding MD [address] [place] [address] Neurology 03/20/23 Austin Sethi [address] [place] [address] Neurology Neurology 06/07/22 documented as of this encounter
--- OUTSIDE RECORDS SUMMARY | 2024-12-18 15:38 | XMS_ITS | Encounter Summary ---
Author Organization [facility] Address [address] [place] [address] Care Team Providers Care Concrete Batching Plant Operator Name Role Phone Adeline Guo MD Primary Care Provider +- [phone] Feliciano Evnas MD Unavailable Unavailable Yara Harding MD Unavailable [phone] Curt Wiseman MD Primary Care Provider [phone] Encounter Details Date Type Department Care Team (Late Contact Info) Description 05/15/2020 Scanned Document [facility] Neurosurgery [place] 35 [facility] [address] [place] [phone] Marcelino Steen MD 35 [facility] 5 [place] [address] Social History Tobacco Use Types Packs/Day Years [...] EDT Procedure visit [facility] Neurology [place] 35 [facility] [address] [place] [address] Suman Dudley MD [address] [place] [address] [place] [address] documented as of this encounter Visit Diagnoses Not on filedocumented in this encounter Care Teams Concrete Batching Plant Operator Relationship Specialty Start Date End Date Adeline Guo MD 395 [place] [address] PCP - General Internal Medicine 03/10/20 10/13/24 Curt Wiseman MD [address] [place] [address] Dr Garcia [address] [place] [address] PCP - General Family Medicine 10/14/24 Feliciano Evans MD [address] [place] [address] Referring Provider 10/28/20 Yara Harding MD [address] [place] [address] Neurology 03/20/[address] [address] Neurology Neurology 06/07/22 documented as of this encounter
--- OUTSIDE RECORDS SUMMARY | 2024-12-18 15:38 | XMS_ITS | Encounter Summary ---
Author Organization [facility] Address [address] [place] [address] Care Team Providers Care Size Roller Operator Name Role Phone Adeline Guo MD Primary Care Provider +- [phone] Feliciano Evans MD Unavailable Unavailable Yara Harding MD Unavailable [phone] Curt Wiseman MD Primary Care Provider [phone] Encounter Details Date Type Department Care Team (Late Contact Info) Description 05/20/2020 Scanned Document [address] [place] [phone] Provider, Generic Social History Tobacco Use [...] Procedure visit [facility] Neurology [address] [place] [address] Suman Dudley MD 35 [facility] [place] 6 [place] [address] documented as of this encounter Visit Diagnoses Not on filedocumented in this encounter Care Teams Size Roller Operator Relationship Specialty Start Date End Date Adeline Guo MD 395 [place] [address] PCP - General Internal Medicine 03/10/20 10/13/24 Curt Wiseman MD [address] [place] [address] [address] [place] [address] PCP - General Family Medicine 10/14/24 Feliciano Evans MD [address] [place] [address] Referring Provider 10/28/20 Yara Harding MD [address] [place] [address] Neurology 03/20/[address] [address] Neurology Neurology 06/07/22 documented as of this encounter
--- OUTSIDE RECORDS SUMMARY | 2024-12-18 15:38 | XMS_ITS | Clinical Summary ---
Author Organization [employer] Address 75 [facility] 7t [place] [address] Care Team Providers Care Accounting Clerk Name Role Phone Unavailable Primary Care Provider [...] [facility] ADULT [facility] [address] [place] [address] Rocío Castillo, DDS 11/13/2024 1:00 PM EDT Office Visit [facility] ADULT [facility]AL [address] [place] [address] Alex Burns DMD History of tooth extraction, unspecified edentulism class (Primary Dx) 11/12/2024 Refill [facility] ADULT DENTAL [address] [place] [address] Rocío Castillo, DDS 10/23/2024 3:15 PM EDT Office Visit [facility] ADULT DENTAL [address] [place] [address] Rocío Castillo, DDS 10/08/2024 Refill [facility] ADULT DENTAL [address] [place] [address] Rocío Castillo, DDS from Last 3 Months [...] [facility] [address] [place] [address] Corinne Pedroza Health Maintenance Due Date Last [...] Relevant to Health Maintenance Insurance DENTAL - [facility]
--- OUTSIDE RECORDS SUMMARY | 2024-12-18 15:38 | XMS_ITS | Encounter Summary ---
Author Organization [facility] Address [address] [place] [address] Care Team Providers Care Search Manager Name Role Phone Adeline Guo MD Primary Care Provider +- [phone] Feliciano Evans MD Unavailable Unavailable Yara Harding MD Unavailable [phone] Curt Wiseman MD Primary Care Provider [phone] Encounter Details Date Type Department Care Team (Late Contact Info) Description 05/10/2022 Scanned Document [facility] NEUROSURGERY SCAN Neurosurgery, Scan Social History [...] Upcoming Encounters Date Type Department Care Team ([facility] Contact Info) Description 01/27/2025 1:00 PM EDT Procedure visit [facility] Neurology [address] 6 [place] [phone] Suman Dudley MD 35 [facility] 6 [place] [address] documented as of this encounter Visit Diagnoses Not on filedocumented in this encounter Care Teams Search Manager Relationship Specialty Start Date End Date Adeline Guo MD 395 [place] [address] PCP - General Internal Medicine 03/10/20 10/13/24 Curt iWseman MD [address] [place] [address] 104 [place] [address] PCP - General Family Medicine 10/14/24 Feliciano Evans MD [address] [place] [address] Referring Provider 10/28/20 Yara Harding MD [address] [place] [address] Neurology 03/20/[address] [address] Neurology Neurology 06/07/22 documented as of this encounter
--- OUTSIDE RECORDS SUMMARY | 2024-12-18 15:38 | XMS_ITS | Encounter Summary ---
Author Organization [employer] Address [address] [place] [address] 7t [place] [address] Care Team Providers Care Lead Python Developer Name Role Phone Unavailable Primary Care Provider Unavailabl e Encounter Details Date Type Department Care Team (Latest Contact Info) Description 10/13/2021 Abstract [facility] CONVERSION[facility] Dental, Provider, DDS [...] Description 02/20/2025 1:00 PM EDT Office Visit [facility] ADULT DENTAL [address] [place] [address] Corinne Pedroza documented as of this encounter Visit Diagnoses Not on filedocumented in this encounter
--- OUTSIDE RECORDS SUMMARY | 2024-12-18 15:38 | XMS_ITS | Encounter Summary ---
Author Organization [facility] Address [address] [place] [address] Care Team Providers Care Sap Consultant Name Role Phone Curt Wiseman MD Primary Care Provider [phone] Reason for Visit * Reason Comments Appointment Encounter Details Date Type Department Care Team ([facility] st Contact Info) Description 04/16/2021 Telephone [facility] Neurology [address] [address] Austin Sethi MD 123 [facility] [address] [place] [address] Appointment Social History Tobacco Use Types Packs/Day [...] 3:30 PM Austin Sethi MD [facility] Neurology [address] * Telephone [...] 2:15 PM Austin Sethi MD [facility] Neurology [address] * Telephone [...] on filedocumented in this encounter Care Teams Sap Consultant Relationship Specialty Start Date End Date Curt Wiseman MD [address] [address] PCP - General Family Medicine 02/10/21 documented as of this encounter
--- OUTSIDE RECORDS SUMMARY | 2024-12-18 15:38 | XMS_ITS | Clinical Summary ---
Author Organization [facility] Address [address] [place] [address] Care Team Providers Care Ophthalmic Asst Name Role Phone Feliciano Evans MD Unavailable Unavailable Yara Harding MD Unavailable [phone] Curt Wiseman MD Primary Care Provider [phone] Allergies Active Allergy Reactions Criticality Noted Date [...] By: KRISHNA FAGAN Comment: Entered automatically through [employer] Problem List documentation program Feb 20, 2024 Entered By: REJI BERNARD Comment: Agent [employer] Registry Exam 02/20/24 Feb 20, 2024 Entered By: REJI BERNARD Comment: Agent Dickens Exposure, [facility] 1969- Generalized abdominal pain 10/14/2024 Melena [...] deep brain stimulator placement 02/04 Overview (09/24/2021): [employer], Linear lead, right chest Postoperative visit [...] Type Department Care Team Description 11/14/2024 Telephone [facility] Neurology [address] [phone] Suman Dudley MD 10/29/2024 Telephone [facility] Neurology [address] [address] Suman Dudley MD Other 10/14/2024 1:00 PM EDT Consult [facility] Neurology [address] [place] [address] Suman Dudley MD Essential tremor (Primary Dx); Status post deep brain stimulator placement 10/14/2024 Telephone [facility] Neurology [address] [address] Suman Dudley MD 10/14/2024 Travel 10/03/2024 Telephone [facility] Neurology [address] [address] Suman Dudley MD from Last 3 Months [...] Procedure visit [facility] Neurology [place] 35 [facility] [address] [place] [address] Suman Dudley MD 35 [facility] 6 [place] [address] Health Maintenance Due Date Last Done Comments [...] this topic Medical Devices Implanted Type Area Vp Director Of Creative Strategy Device Identifier Shelf Expiration Date Model / Serial / Lot [id number] Extension Neurostimulator 60cm 1.3-3.8mm 1.5mm Std Qdpl Dist - [id number] Implanted:Qty: 1 on 11/25/2020 by Monroe Choi MD at [facility] Cerebral [employer] 09/10/2023 [id number] / [id number] / [id number] Extension Neurostimulator 60cm 1.3-3.8mm 1.5mm Std Qdpl Dist - [id number] Implanted:Qty: 1 on 11/25/2020 by Monroe Choi MD at [facility] Cerebral [employer] 01/31/2024 [id number] / [id number] / [id number] Screw Bone Mdfc 5mm 1.5mm Self Drill Htorq Xdr Amelia Madden - [id number] Implanted:Qty: 4 on 11/04/2020 by Monroe Choi MD at [facility] Maxillofacial Cranial [employer] [id number] / / [id number] Lead Neurostimulator Strg Cylinder Firm Deep Brn Stm - [id number] Implanted:Qty: 1 on 11/04/2020 by Monroe Choi MD at [facility] Stimulator Right: Brain [employer] 05/25/2024 [id number]-40 / / [id number] 3387s-40 Lead Neurostimulator Strg Cylinder Firm Deep Brn Stm - [id number] Implanted:Qty: 1 on 11/04/2020 by Monroe Choi MD at [facility] Stimulator [employer] 3387S-40 / / [id number] Neurostimulator Implantable 68mm X 51mm Percept 2 Chnl 61g - [id number] Implanted:Qty: 1 on 11/25/2020 by Monroe Choi MD at [facility] Stimulator [employer] 08/20/2022 [id number] / [id number] 1H / [id number] Hair Mixer Neurostimulator Patient Percept Pc Device - [id number] Implanted:Qty: 1 on 11/25/2020 by Monroe Choi MD at [facility] Stimulator [employer] [id number] / / [id number] Kit Stimulator Tunnel Deep Brn Stm - [id number] Implanted:Qty: 1 on 11/25/2020 by Monroe Choi MD at [facility] Stimulator [employer] [id number] / / [id number] Filler Bone Void 10cc 20cc Calcium Slf Stimulan Rpd Cure Kit - [id number] Implanted:Qty: 1 on 11/04/2020 by Monroe Choi MD at [facility] Void Filler N/A: Brain [employer] 12/04/2022 620-010 / / [id number] 620-010 Filler Bone Void 10cc 20cc Calcium Slf Stimulan Rpd Cure Kit - [id number] Implanted:Qty: 1 on 11/25/2020 by Monroe Choi MD at [facility] Void Filler Right: Chest [employer] 12/04/2022 620-010 / / [id number] Description:mixed with 1 gm vancomycin powder and 1.2gm tobramycin powder Explanted Type Area Vp Director Of Creative Strategy Device Identifier Shelf Expiration Date Model / Serial / Lot 70-It-Ar5p Electrode Neurostimulator [employer] Dzap - [id number] Explanted:Qty: 1 on 11/04/2020 by Monroe Choi MD at [facility] Stimulator Brain [employer] 10/15/2021 70-IT-AR 5P / / [id number] 66-It-Ar4p Electrode Neurostimulator Microtargeting Unilateral - [id number] Explanted:Qty: 1 on 11/04/2020 by Monroe Choi MD at [facility] Stimulator Brain [employer] 02/25/2023 66-IT-AR 4P / / [id number] Cable Neurostimulator Twstlk Scrn Sterl Lf - [id number] Explanted:Qty: 1 on 11/04/2020 by Monroe Choi MD at [facility] Stimulator Right: Brain [employer] 09/03/2024 [id number] / / [id number] Description:NOT AN IMPLANT Insurance [facility] Advance Directives * Full Code (Latest Code Status on File) Date Activated Date Inactivated Comments 11/25/2020 8:30 AM * Full Code Date Activated Date Inactivated Comments 11/04/2020 4:31 PM 11/25/2020 7:56 AM Care Teams Ophthalmic Asst Relationship Specialty Start Date End Date Curt Wiseman MD [address] [place] [address] [place] [address] PCP - General Family Medicine 10/14/24 Feliciano Evans MD Referring Provider 10/28/20 Yara Harding MD Neurology 03/20/23 Austin Sethi [address] [place] [address] Neurology Neurology 06/07/22
--- OUTSIDE RECORDS SUMMARY | 2024-12-18 15:38 | XMS_ITS | Encounter Summary ---
Author Organization [employer] Address 75 [facility] 7t [place] [address] Care Team Providers Care Sound Assistant Name Role Phone Unavailable Primary Care Provider Unavailabl e Reason for Visit * Reason Onset Date Comments appt temp crown fell off/recement 03/19/2024 Encounter Details Date Type Department Care Team ([facility] st Contact Info) Description 03/19/2024 Telephone [facility] ADULT DENTAL [address] [place] [address] Rocío Castillo, DDS [address] [place] [address] appt temp crown fell off/recement Social History [...] fell off. Ok to schedule per Megan motel front desk attendant. Informed motel front desk attendant via phone that [employer] is not an insurance we have access [...] tomorrow at 1:30. They would like to machine pecan picker in the morning to have it ready to take prior to treatment. The pharmacy on file is the one to use. documented in this encounter Plan of Treatment Upcoming Encounters Date Type Department Care Team (Late st Contact Info) Description 02/20/2025 1:00 PM EDT Office Visit [facility] ADULT DENTAL [address] [place] [address] Corinne Pedroza documented as of this encounter Visit Diagnoses Not on filedocumented in this encounter
--- OUTSIDE RECORDS SUMMARY | 2024-12-18 15:38 | XMS_ITS | Patient Health Record ---
Author Organization [facility] Address [address] [place] [address] Care Team Providers Care Medical Record Assistant Name Role Phone Adeline Guo Primary Care Provider Pricila Valenzuela Unavailable [phone] REASON FOR REFERRAL No Information MEDICATIONS Medication [...] GENERALIZED (789.07) Active confirmed Generalized abdominal pain (126587838) Problem Diarrhea (787.91) Active confirmed Diarrhea (38541274) Problem Vomiting (787.03) Active confirmed Vomiting (906459220) Problem Abnormal loss of weight (783.21) Active confirmed Abnormal weight loss (794753709) Problem GERD [Gastroesophage al reflux disease] (530.81) Active confirmed Gastroesophagea l reflux disease (disorder) (636185595) Problem Projectile vomiting with nausea (R11.12) Active confirmed Vomiting (172157163) Problem Diarrhea, unspecified type (R19.7) Active confirmed Diarrhea (29124027) Problem Chronic GERD (K21.9) Active confirmed 727443355 Problem Slow transit constipation (K59.01) Active confirmed 91906103 Problem Intractable cyclical vomiting with nausea (G43.A1) Active confirmed 01663845 Problem Barretts esophagus without dysplasia (K22.70) Active confirmed 332519790 Problem Bleeding per rectum (K62.5) Active confirmed 36117466 PLAN OF TREATMENT Pending Test Test Name Order Date *[facility] Exam, Routine 03/31/2015 MRI:ENTEROGRAPHY 03/31/2015 Gastric emptying study 03/31/2015 CT Abdomen Pelvis with contrast 08/05/20 16 Insurance Providers Payer Name Payer Address Payer Phone Subscriber Number Group Number Insured Name Patient Relationship to Insured Coverage Start Date Coverage End Date Medicare B [place] [employer] [place] [facility] [address] [place] [address] [id number] THALIA DANIELSON Self - patient is the insured Medicaid OF [facility] PLAN [address] [place] [address] [phone] [id number] THAILA DANIELSON Self - patient is the insured MEDICAL (GENERAL) HISTORY Medical History History ICD Code Hypertension Coronary artery disease s/p PCI Depression/ anxiety Hyperlipidemia Surgical History Surgery Date(Month/Year) cardiac stents
[2024-12-18] MEDS: Albuterol Sulfate 90 MCG 8 GM INHALER 4 PUFF INHALE (16:12)
[2024-12-18 16:13] LABS: Appearance Urine Clear; Color Urine Yellow; Glucose Urine UA Negative (Negative); Leukocyte Esterase Urine Moderate (2+) (Negative); Nitrite Urine Negative (Negative); UMIC TRIGGER UACC YES; Urine Blood Negative (Negative); Urine Ketones Negative (Negative); Urine Protein Negative (Neg-Trace)
[2024-12-18 16:15] VITALS: PULSE 80; RESP 18; O2SAT 95
[2024-12-18 16:19] LABS: IDNOW Serial# 55D5AD1C; Strep A Nucleic Acid Negative (Negative)
[2024-12-18 16:29] LABS: Bacteria Urine 1+ (None Seen); Hyaline Casts Urine 0-2 /LPF (0-2); RBC Urine 0-2 /HPF (0-2); Squamous Epithelial Cell Urine 0-2 /HPF (0-2); UACC Culture Trigger YES; WBC Urine >50 /HPF (0-5)
[2024-12-18 17:12] LABS: Troponin-I High Sensitivity 2.7 ng/L (<3.5-35.0)
[2024-12-18 18:16] VITALS: BP 130/60; PULSE 80; RESP 18; TEMP 37.1; O2SAT 95
== END 2024-12-18 18:53 | disposition home or self-care (01) ==
PROVIDERS: Physician Assistant; Registered Nurse Emergency; Emergency Provider Emergency Medicine; PCP Family Medicine
DX: J40 Bronchitis, not specified as acute or chronic (principal); N39.0 Urinary tract infection, site not specified; J02.9 Acute pharyngitis, unspecified; R51.9 Headache, unspecified; I10 Essential (primary) hypertension; I25.10 Atherosclerotic heart disease of native coronary artery without angina pectoris; R05.9 Cough, unspecified; M79.10 Myalgia, unspecified site; Z79.899 Other long term (current) drug therapy
CPT/HCPCS: 36415; 71046; 80053; 81001; 84484; 85025; 87086; 87088; 87186; 87651; 94640; 99284

== ENCOUNTER → 2024-12-18 13:48 | Outpatient (BNV) | payer MEDICARE, SELFPAY | PROVIDERS: PCP Family Medicine; Visit Provider Radiology Diagnostic Radiology | DX: R05.9 Cough, unspecified (principal) | CPT/HCPCS: 71046 ==

== ENCOUNTER 2025-01-13 16:32 | Outpatient (AMB) | payer MEDICARE, SELFPAY ==
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
[2025-01-13 17:01] VITALS: BMI 29.3
--- OUTSIDE RECORDS SUMMARY | 2025-01-13 17:48 | XMS_ITS | Encounter Summary ---
Author Organization [facility] Address [address] [place] [address] Care Team Providers Care Tool Or Die Drawing Checker Name Role Phone Adeline Guo MD Primary Care Provider +- [phone] Feliciano Evans MD Unavailable Unavailable Yara Harding MD Unavailable [phone] Curt Wiseman MD Primary Care Provider [phone] Encounter Details Date Type Department Care Team (Late Contact Info) Description 08/05/2020 Scanned Document [facility] Neurosurgery [place] [address] [phone] Monroe Choi MD [address] [address] Social History Tobacco Use Types Packs/Day Years [...] 01/27/2025 1:00 PM EDT Procedure visit [facility] Neurology [address] [phone] Suman Dudley MD [address] [place], [place] [address], [place] [address] documented as of this encounter Visit Diagnoses Not on filedocumented in this encounter Care Teams Tool Or Die Drawing Checker Relationship Specialty Start Date End Date Adeline Guo MD [address] [place] [id number] PCP - General Internal Medicine 03/10/20 10/13/24 Curt Wiseman MD [address] [place] [address] PCP - General Family Medicine 10/14/24 Feliciano Evans MD [address] [place] [address] Referring Provider 10/28/20 Yara Harding MD [address] [place] [address] Neurology 03/20/23 Austin Sethi [address] [place] [address] Neurology Neurology 06/07/22 documented as of this encounter
== END 2025-01-13 17:05 | disposition home or self-care (01) ==
LOC: HO.HMCFM 16:32
PROVIDERS: PCP Family Medicine; Visit Provider Family Medicine
DX: M25.561 Pain in right knee (principal); G89.29 Other chronic pain; G25.0 Essential tremor; R41.89 Other symptoms and signs involving cognitive functions and awareness; M25.562 Pain in left knee

== ENCOUNTER → 2025-01-13 16:32 | Outpatient (BNVA) | payer MEDICARE, SELFPAY | PROVIDERS: PCP Family Medicine; Visit Provider Family Medicine | DX: M25.561 Pain in right knee (principal); G89.29 Other chronic pain; G25.0 Essential tremor; R41.89 Other symptoms and signs involving cognitive functions and awareness; M25.562 Pain in left knee | CPT/HCPCS: 99212 ==

== ENCOUNTER 2025-01-15 13:44 | Outpatient (REF) | payer MEDICARE, SELFPAY ==
--- NOTE | ~2025-01-15 | XR_ITS ---
EXAMINATION: XR KNEE, LEFT CLINICAL INFORMATION: M25.562 - Pain in left knee COMPARISON: None available. TECHNIQUE: 3 views of the left knee. FINDINGS: There is no joint effusion. There is mild narrowing of the medial joint compartment. There is faint stippled calcific density in the medial joint line, probably within the medial meniscus body. There are osteophytes involving the intercondylar spines, medial trochlea, and patella. 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 Electronically signed by: Sam Grier MD 01/15/2025 06:11 PM EDT
--- OUTSIDE RECORDS SUMMARY | 2025-01-15 15:36 | XMS_ITS | Encounter Summary ---
Author Organization [facility] Address [address] [place] [address] Care Team Providers Care Furniture Refinisher Name Role Phone Adeline Guo MD Primary Care Provider +- [phone] Feliciano Eavns MD Unavailable Unavailable Yara Harding MD Unavailable [phone] Curt Wiseman MD Primary Care Provider [phone] Encounter Details Date Type Department Care Team (Late Contact Info) Description 08/05/[address] [facility] Neurosurgery [place] [address] [phone] Monroe Choi MD [address] [address] Social History Tobacco Use Types Packs/Day Years [...] [facility] Neurology [address] [phone] Suman Dudley MD [address] [place], [place] [address], [place] [address] documented as of this encounter Visit Diagnoses Not on filedocumented in this encounter Care Teams Furniture Refinisher Relationship Specialty Start Date End Date Adeline Guo MD [address] [place] [address] PCP - General Internal Medicine 03/10/20 10/13/24 Curt Wiseman MD [address] [place] [address] PCP - General Family Medicine 10/14/24 Feliciano Evans MD [address] [place] [address] Referring Provider 10/28/20 Yara Harding MD [address] [place] [address] Neurology 03/20/23 Austin Sethi [address] [place] [address] Neurology Neurology 06/07/22 documented as of this encounter
== END 2025-01-15 13:45 | disposition home or self-care (01) ==
LOC: HO.XRAY 13:44
PROVIDERS: PCP Family Medicine; Visit Provider Family Medicine
DX: M25.562 Pain in left knee (principal)
CPT/HCPCS: 73562

== ENCOUNTER → 2025-01-15 13:52 | Outpatient (BNV) | payer MEDICARE, SELFPAY | PROVIDERS: PCP Family Medicine; Visit Provider Radiology Diagnostic Radiology | DX: M25.562 Pain in left knee (principal) | CPT/HCPCS: 73562 ==

== ENCOUNTER 2025-03-27 14:49 | Outpatient (AMB) | payer MEDICARE, SELFPAY ==
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
--- OUTSIDE RECORDS SUMMARY | 2025-03-27 14:52 | XMS_ITS | Encounter Summary ---
Author Organization [facility] Address [address] [place] [address] Care Team Providers Care Clinical Program Coordinator Name Role Phone Adeline Guo MD Primary Care Provider +- [phone] Feliciano Evans MD Unavailable Unavailable Yara Harding MD Unavailable [phone] Curt Wiseman MD Primary Care Provider [phone] Encounter Details Date Type Department Care Team (Late Contact Info) Description 08/05/2020 Scanned Document [facility] Neurosurgery [place] [address] [phone] Monreo Choi MD [address] [address] Social History Tobacco Use Types Packs/Day Years [...] Department Care Team (Late Contact Info) Description 05/05/2025 1:00 PM EDT Procedure visit [facility] Neurology [address] [phone] Suman Dudley MD [address] [place], [place] [address] [address] documented as of this encounter Visit Diagnoses Not on filedocumented in this encounter Care Teams Clinical Program Coordinator Relationship Specialty Start Date End Date Adeline Guo MD [address] [place] [address] PCP - General Internal Medicine 03/10/20 10/13/24 Curt Wiseman MD [address] [place] [address] PCP - General Family Medicine 10/14/24 Feliciano Evans MD [address] [place] [address] Referring Provider 10/28/20 Yara Harding MD [address] [place] [address] Neurology 03/20/23 Austin Sethi [address] [place] [address] Neurology Neurology 06/07/22 documented as of this encounter
--- OUTSIDE RECORDS SUMMARY | 2025-03-27 14:53 | XMS_ITS ---
Author Name [facility] Organization Unknown History of Medication Use Medication Directions Dispensed Refills Start Date End Date Stat linaclotide (LINZESS) 72 mcg capsule Take 1 capsule (72 mcg total) by mouth. 06/28/2024 active doxycycline (VIBRAMYCIN) 100 MG capsule TAKE 1 CAPSULE ORALLY 2 TIMES A DAY 06/12/2024 active chlorhexidine (PERIDEX) 0.12 % oral solution TAKE 15 ML BY MOUTH 2 TIMES A DAY, GARGLE AND SPIT OUT 05/27/2024 active lidocaine (XYLOCAINE) 5 % ointment Apply topically 3 (three) times a day as needed. 03/15/2024 active primidone (MYSOLINE) 50 MG tablet TAKE 3 TABLETS (150 MG TOTAL) BY MOUTH 3 (THREE) TIMES A DAY. 12/26/2023 active gabapentin (NEURONTIN) 100 MG capsule Take 1 capsule (100 mg total) by mouth. 08/01/2023 active gabapentin (NEURONTIN) 100 MG capsule Take 2 capsules (200 mg total) by mouth daily. 08/01/2023 active ferrous sulfate 324 (65 Fe) MG Tablet Delayed Response Take 1 tablet (324 mg total) by mouth daily. 06/05/2022 01/27/2025 aborted ferrous sulfate 324 (65 Fe) MG Tablet Delayed Response Take 1 tablet (324 mg total) by mouth daily. 06/05/2022 active ascorbic acid (VITAMIN C) 500 MG tablet TAKE 2 TABLETS BY MOUTH DAILY. DO NOT START BEFORE NOVEMBER 06, 2020. 03/16/2021 active docusate sodium (COLACE) 100 MG capsule TAKE 1 CAPSULE BY MOUTH TWICE A DAY DIRECTED 03/08/2021 active HYDROmorphone (DILAUDID) 2 MG tablet TAKE 1 TO 2 TABLETS BY MOUTH EVERY 4 TO 6 HOURS NEEDED FOR MODERATE TO SEVERE PAIN 02/19/2021 05/30/2022 active Aspirin 81 MG Cap daily. 02/09/2021 act palak lactulose (ENULOSE) 10 gm/15 mL solution TAKE 10 20 ML BY MOUTH TWICE A DAY NEEDED 11/19/2020 active senna-docusate (SENNA-S) 8.6-50 MG Take 2 tablets by mouth nightly. 11/05/2020 05/30/2022 active acetaminophen (TYLENOL) 325 MG tablet Take 3 tablets (975 mg total) by mouth every 8 (eight) hours around the clock. 11/05/2020 active primidone (MYSOLINE) 50 MG tablet Take 3 tablets (150 mg total) by mouth 3 (three) times a day. 2-3 tabs a night 10/02/2020 12/26/2023 active ezetimibe (ZeTIA) 10 MG tablet Take 1 tablet (10 mg total) by mouth daily. 03/14/2020 active fluticasone (FloNASE) 50 mcg/spray nasal spray fluticasone propionate 50 mcg/actuation nasal spray,suspension USE 1 SPRAY IN EACH NOSTRIL EVERY MORNING 08/23/2019 active albuterol (PROVENTIL HFA; VENTOLIN HFA) 108 (90 Base) MCG/ACT inhaler albuterol sulfate HFA 90 mcg/actuation aerosol inhaler INHALE 2 PUFFS INTO THE LUNGS EVERY 4 HOURS NEEDED FOR COUGH, WHEEZING OR SHORTNESS OF BREATH. active amLODIPine (NORVASC) 10 MG tablet amlodipine 10 mg tablet TAKE 1 TABLET BY MOUTH EVERY DAY active atorvastatin (LIPITOR) 80 MG tablet atorvastatin 80 mg tablet TAKE 1 TABLET BY MOUTH EVERY DAY active diphenhydrAMINE-acet aminophen (TYLENOL PM) 25-500 MG Tab Take 2 tablets by mouth nightly as needed. active finasteride (PROSCAR) 5 MG tablet finasteride 5 mg tablet TAKE 1 TABLET BY MOUTH EVERY DAY active losartan (COZAAR) 50 MG tablet Take 1 tablet (50 mg total) by mouth daily. active Multiple Vitamin (Daily-Estefany Multivitamin) Tab Take 1 tablet by mouth. active Multiple Vitamins-Minerals (CENTRUM SILVER 50+MEN PO) Centrum Silver active OMEprazole (PriLOSEC) 20 MG capsule Take 2 capsules (40 mg total) by mouth 2 (two) times a day. active OMEprazole (PriLOSEC) 40 MG capsule Take 1 capsule (40 mg total) by mouth 2 (two) times a day. active ondansetron (ZOFRAN) 4 MG tablet Take 1 tablet (4 mg total) by mouth 3 times daily (every 8 hours) as needed for nausea or vomiting. active Probiotic Product (Align) 4 MG Cap daily. active psyllium (METAMUCIL) 58.6 % powder Take 1 packet by mouth as needed. active senna (SENOKOT) 8.6 MG Tab tablet Take 2 tablets by mouth daily as needed for constipation. active tadalafil (CIALIS) 5 MG tablet tadalafil 5 mg tablet TAKE 1 TABLET BY MOUTH EVERY DAY active traZODone (DESYREL) 50 MG tablet trazodone 50 mg tablet TAKE 1 TO 2 TABLETS BY MOUTH EVERY DAY AT BEDTIME active Allergies Allergen Reaction Severity Comment Documented Date Source Statu s GABAPENTIN OTHER (SEE COMMENTS)OTHER (SEE COMMENTS) Extreme non-functional - patient denies 02/21/2022 [facility] active PREGABALIN SHORTNESS OF BREATH Pt denies 02/21/2022 [facility] T active VARDENAFIL OTHER (SEE COMMENTS) 03/17/2009 [facility] active Problems Problem Status Onset Date Problem Type Date of Resoluti on Source Essential tremor active 2020-11-04 ProblemAct [facility] Abnormal weight loss active 2024-10-14 ProblemAct [facility] Microalbuminuria active 2024-10-14 ProblemAct [facility] Memory loss or impairment active 2018-02-14 ProblemAct [facility] 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 active 2024-10-14 ProblemAct [facility] Bleeding per rectum active 2024-10-14 ProblemAct [facility] Mild episode of recurrent major depressive disorder active 2022-06-25 ProblemAct [facility] Chronic post-traumatic stress disorder active 2014-06-02 ProblemAct [facility] Melena active 2024-10-14 ProblemAct [facility] Status post deep brain stimulator placement active 2021-02-18 ProblemAct [facility] Essential hypertension active 2014-05-21 ProblemAct [facility] Anaya's esophagus active 2024-10-14 ProblemAct [facility] Postoperative visit active 2020-12-01 ProblemAct [facility] Benign prostatic hyperplasia active 2014-05-21 ProblemAct [facility] Depression active 2014-06-02 ProblemAct [facility] Exposure to potentially hazardous substance active 2024-10-14 ProblemAct [facility] Angina pectoris active 2024-10-14 ProblemAct [facility] Osteoarthritis active 2024-10-[address] 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 with return to pre-existing conscious levels, subsequent encounter active 2024-10-14 ProblemAct [facility] Gastroesophageal reflux disease active 2014-05-21 ProblemAct [facility] Anxiety active 2014-06-02 ProblemAct [facility] Nausea active 2023-11-24 ProblemAct [facility] Intractable cyclical vomiting with nausea active 2024-10-14 ProblemAct [facility] Asthma with allergic rhinitis active 2022-06-22 ProblemAct [facility] Personal history of traumatic brain injury active 2024-10-14 ProblemAct [facility] Lower back pain active 2014-05-21 ProblemAct [facility] Primary erectile dysfunction active 2014-05-21 ProblemAct [facility] Constipation active 2023-11-24 ProblemAct [facility] Insomnia active 2022-06-25 ProblemAct [facility] Chronic pain of right knee active 2021-09-06 ProblemAct [facility] Intractable neuropathic pain of lower extremity active 2022-06-22 ProblemAct [facility] IgA deficiency, selective active 2014-05-21 ProblemAct [facility] Sensorineural hearing loss, bilateral active 2024-10-14 ProblemAct [facility] Lumbar nerve root impingement active 2024-07-08 ProblemAct [facility] Right inguinal hernia active 2015-08-20 ProblemAct [facility] Right groin pain active 2019-03-25 ProblemAct [facility] Lumbar disc herniation active 2024-07-08 ProblemAct [facility] Impaired fasting glucose active 2014-06-02 ProblemAct [facility] Hyperlipidemia active 2014-05-[address] Generalized abdominal pain active 2024-10-14 ProblemAct [facility] Encounters Encounter Type Encounter Reason Primary Diagnosis Location Date Ambulatory Essential tremor Essential tremor [facility] 01/27/2025 Ambulatory Essential tremor Essential tremor [facility] 10/14/2024 Ambulatory Essential tremor Essential tremor [facility] 09/09/2024 Ambulatory Pain in right knee Pain in right knee [facility] 07/19/2024 Ambulatory Presence of other specified functional implants Presence of other specified functional implants [facility] 01/08/2024 Ambulatory Essential tremor Essential tremor [facility] 05/09/2023 Ambulatory Essential tremor [facility] 02/17/2023 Ambulatory Essential tremor [facility] 12/02/2022 Ambulatory Essential tremor [facility] 10/14/2022 Ambulatory Essential tremor [facility] 08/19/2022 Ambulatory Essential tremor [facility] 07/01/2022 Ambulatory Essential tremor [facility] [employer] 05/30/2022 Ambulatory Pain in right knee [facility] 04/28/2022 Ambulatory Presence of othe r specified functional implants [facility] 02/21/2022 Ambulatory Pain in right knee [facility] 08/31/2021 Care Team Organization Name Specialty Phone Email Start Date End Da te [facility] Primary Care 01/27/2025 02/25/2025 [facility] Primary Care 10/14/2024 [facility] ADELINE HERNANDEZ Primary Care 07/01/202202/25 [facility] Adeline Hernandez Primary Care 04/26/202105/08
--- OUTSIDE RECORDS SUMMARY | 2025-03-27 14:53 | XMS_ITS | Encounter Summary ---
Author Organization [employer] [facility] Address [address] [place] [address] [address] [place] [address] Care Team Providers Care Otolaryngologist Name Role Phone Unavailable Primary Care Provider Unavailabl e Reason for Visit * Reason Onset Date Comments returning call placed yesterday 03/10 dental 12/2024 Encounter Details Date Type Department Care Team (Late Contact Info) Description 03/11/2025 Telephone [facility] [address] [place] [address] Alex Burns, JANAK [address] [place] [address] returning call placed yesterday 03/10 dental Social History Tobacco Use Types Packs/Day Years Used Date Smoking Tobacco: Never Passive Smoke Exposure: Never Smokeless Tobacco: Never Alcohol Use Standard Drinks/Week Comments Defer 0 (1 standard drink = 0.6 oz pur e alcohol) Sex and Gender Information Value Date Recorded Sex Assigned at Male 06/06/2022 10:24 AM EDT Legal Sex Male 10:24 AM EDT Gender Identity Male 06/06/2022 10:24 AM EDT Sexual Orientation Straight 06/06/2022 10 :24 AM EDT documented as of this encounter Miscellaneous Notes * Telephone Encounter - Zeynep Rodriguez - 03/11/2025 12:18 PM EDT Patient called in returning call placed yesterday for next appt scheduling. Please reach out to patient documented in this encounter Plan of Treatment Upcoming Encounters Date Type Department Care Team (Late Contact Info) Description 04/10/2025 1:30 PM EDT Office Visit [facility] [address] [place] [address] Andre Bang [address] [place] [address] 08/27/2025 1:00 PM EST Office Visit [facility] [address] [place] [address] Corinne Pedroza documented as of this encounter Visit Diagnoses Not on filedocumented in this encounter
--- OUTSIDE RECORDS SUMMARY | 2025-03-27 14:53 | XMS_ITS | Patient Health Record ---
Author Organization [facility] Address [address] [address] Care Team Providers Care Boiler Tube Blower Name Role Phone BrantAdeline Primary Care Provider Unavaila Pricila Herman Unavailable [phone] Reason For Referral No Information Medications Medication SIG (Take, Route, Frequency, Duration) Notes Start Date End Date Status amitriptyline 25 mg tablet 1 tab(s) oral ly once a day (at bedtime); Duration: 30 Active Enulose 10 g/15 mL liquid 30 mL orally t wice a day; Duration: 30 days 09/06/2017 Active omeprazole 20 mg delayed release capsule 1 cap(s) orally twice a day; Duration: 30 day(s) 09/06/2017 Active lamoTRIgine Active Zofran 4 mg tablet 1 tab(s) orally ever y 8 hours; Duration: 30 days 08/05/2016 Active rOPINIRole Active pantoprazole 40 mg delayed release tablet 1 tab(s) orally once a day; Duration: 30 day(s) 08/05/2016 Active primidone Active hydrochlorothiazide Active finasteride Active losartan Active isosorbide dinitrate Active omeprazole Active Phenergan 12.5 mg suppository 1 supp(s) rectally every 6 hours as needed; Duration: 30 Active omeprazole 20 mg delayed release capsule 1 cap(s) orally twice daily; Duration: 30 day(s) 05/26/2021 Active metoprolol Active atorvastatin Active aspirin Active Suprep Bowel Prep Kit (obsolete) 1.6 g-3.13 g-17.5 g/177 mL liquid 177 mL orally twice; Duration: 2 dose(s) 09/13/2017 Active Social History Tobacco Use: Social History Observation Description Date Details (start date - stop date) Never Smoker NA - NA Social History Social History Social Info Question Answer Notes Smoking Status / Tobacco Are you a: non smoker Additional Details Category Social Info Options Details Social History Alcohol: socially Type: , Frequ ency: ,Years: , Determination: Drug use: no Problems Problem Type SNOMED Code ICD Code Onset Dates Problem Status W/U Status Risk Notes Problem Vomiting (264333273) Vomiting (787.03) Active confirmed Problem Diarrhea (69819225) Diarrhea (787.91) Active confirmed Problem Generalized abdominal pain (282371910) ABDMNAL PAIN GENERALIZED (789.07) Active confirmed Problem Gastroesophageal reflux disease (disorder) (625954653) GERD [Gastroesophage al reflux disease] (530.81) Active confirmed Problem Abnormal weight loss (671161240) Abnormal loss of weight (783.21) Active confirmed Problem Slow transit constipation (21008689) Slow transit constipation (K59.01) Active confirmed Problem Anaya's esophagus (541895140) Barretts esophagus without dysplasia (K22.70) Active confirmed Problem Gastroesophageal reflux disease (disorder) (887692304) Chronic GERD (K21.9) Active confirmed Problem Bleeding per rectum (41006641) Bleeding per rectum (K62.5) Active confirmed Problem Diarrhea (80035539) Diarrhea, unspecified type (R19.7) Active confirmed Problem Vomiting (996074673) Projectile vomiting with nausea (R11.12) Active confirmed Problem Cyclical vomiting syndrome (04271329) Intractable cyclical vomiting with nausea (G43.A1) Active confirmed Plan Of Treatment Pending Test Test Name Order Date *[facility]va+Parasites Exam, Routine 03/31/2015 MRI:ENTEROGRAPHY 03/31/2015 Gastric emptying study 03/31/2015 CT Abdomen Pelvis with contrast 08/05/20 16 Insurance Providers Payer Name Payer Address Payer Phone Subscriber Number Group Number Insured Name Patient Relationship to Insured Coverage Start Date Coverage End Date Medicare B [facility] Shira daniels [facility] [address] [place] [phone] [id number] THALIA DANIELSON Self - patient is the insured Medicaid OF [facility] [address] [place] [address] [phone] [id number] THALIA DANIELSON Self - patient is the insured Medical (General) History Medical History History ICD Code Hypertension Coronary artery disease s/p PCI Depression/ anxiety Hyperlipidemia Surgical History Surgery Date(Month/Year) cardiac stents
--- OUTSIDE RECORDS SUMMARY | 2025-03-27 14:53 | XMS_ITS | Encounter Summary ---
Author Organization [facility] Address [address] [place] [address] Care Team Providers Care See Supervisor Name Role Phone Curt Wiseman MD Primary Care Provider [phone] Encounter Details Date Type Department Care Team (Late st Contact Info) Description 01/08/2025 Lab Requisition [facility] - Main Lab [address] [facility] [place] [address] Hussein Nix, ANGEL [address] [place] [id number] Urinary tract infection, site not specified Social History Tobacco Use Types Packs/Day Years [...] file documented as of this encounter Procedures Procedure Name Priority Date/Time Associated Diagnosis Comments CULTURE URINE Routine 01/08/2025 2:15 PM EDT Urinary tract infection, site not specified documented in this encounter Results * Culture urine (01/08/2025 2:15 PM EDT) Culture, Urine No growth 01/09/2025 1:14 PM EDT [facility] Urine Urine specimen obtained by clean catch procedure / Unknown 01/08/2025 2:15 PM EDT 01/08/2025 6:02 PM EDT us Hussein [facility] MICROBIOLOGY - GENERAL ORD ERABLES Final Result [facility] [address] [place] [address], documented in this encounter Visit Diagnoses Diagnosis Urinary tract infection, site not specified documented in this encounter Care Teams See Supervisor Relationship Specialty Start Date End Date Curt Wiseman MD [address] [place] [address] PCP - General Family Medicine 07/22/24 documented as of this encounter
--- OUTSIDE RECORDS SUMMARY | 2025-03-27 14:53 | XMS_ITS | Continuity of Care Document ---
Author Organization [facility] Address [address] [place] [address] Care Team Providers Care Calenderer Name Role Phone Curt Wiseman MD Primary Care Provider Encounters Date Type Department Care Team Description [facility] [address] [facility] [address] [place] [address] Austin Sethi MD E-prescribing Refill Request 10/10/2023 Refill [facility] Neurology [address] [facility] [address] [place] [address] Austin Sethi MD Refill Request 06/25/2023 Refill [facility] Neurology [address] [facility] [address] [place] [address] Austin Sethi MD Med Change Request; Refill Request 05/22/2023 Refill [facility] Neurology [address] [facility] [address] [place] [address] Austin Sethi MD E-prescribing Refill Request 03/20/2023 Telephone [facility] Neurology [address] [facility] [address] [place] [address] Austin Sethi MD Medication Check 02/20/2023 Refill [facility] Neurology [address] [facility] [address] [place] [address] Austin Sethi MD E-prescribing Refill Request 01/10/2023 Refill [facility] Neurology [address] [facility] [address] [place] [address] Austin Sethi MD E-prescribing Refill Request 08/08/2022 Refill [facility] Neurology [address] [facility] [address] [place] [address] Austin Sethi MD E-prescribing Refill Request 07/25/2022 Telephone [facility] Neurology [address] [facility] [address] [place] [address] Austin Sethi MD Appointment 06/07/2022 4:30 PM EDT Office Visit [facility] Neurology [address] [facility] [address] [place] [address] Austin Sethi MD Essential tremor (Primary Dx) 05/23/2022 Refill [facility] Neurology [address] [facility] [address] [place] [address] Austin Sethi MD E-prescribing Refill Request 03/11/2022 Telephone [facility] Neurology [address] [facility] [address] [place] [address] Austin Sethi MD Follow Up 03/07/2022 8:15 AM EDT Office Visit [facility] Neurology [address] [facility] [address] [place] [address] Austin Sethi MD Essential tremor (Primary Dx) 02/22/2022 Telephone [facility] Neurology [address] [facility] [address] [place] [address] Austin Sethi MD Appointment 01/19/2022 Telephone [facility] Neurology [address] [facility] [address] [place] [address] Austin Sethi MD Follow Up 12/24/2021 Refill [facility] Neurology [address] [facility] [address] [place] [address] Austin Sethi MD 12/11/2021 Refill [facility] Neurology [address] [facility] [address] [place] [address] Austin Sethi MD E-prescribing Refill Request 11/15/2021 Telephone [facility] Neurology [address] [facility] [address] [place] [address] Austin Sethi MD Follow Up (DBS adjustment ) 10/29/2021 4:00 PM EDT Office Visit [facility] Neurology [address] [facility] [address] [place] [address] Austin Sethi MD Essential tremor (Primary Dx) 10/28/2021 Refill [facility] Neurology [address] [facility] [address] [place] [address] Toma Salas MD E-prescribing Refill Request 09/26/2021 Refill [facility] Neurology [address] [facility] [address] [place] [address] Austin Sethi MD E-prescribing Refill Request 09/12/2021 Refill [facility] Neurology [address] [facility] [address] [place] [address] Austin Sethi MD E-prescribing Refill Request 07/23/2021 Telephone [facility] Neurology [address] [facility] [address] [place] [address] Lorna Prado, SONALI Appointment 05/03/2021 3:30 PM EDT Office Visit [facility] Neu[facility] [address] [facility] [address] [place] [address] Austin Sethi MD Essential tremor (Primary Dx) 04/16/2021 Telephone [facility] Neurology [address] [facility] [address] [place] [address] Austin Sethi MD Appointment 01/29/2021 4:45 PM EDT Office Visit [facility] Neurology [address] [facility] [address] [place] [address] Austin Sethi MD Essential tremor (Primary Dx) 12/31/2020 Telephone [facility] Neurology [address] [facility] [address] [place] [address] Austin Sethi MD Follow Up (DBS) 12/25/2020 Telephone [facility] Neurology [address] [facility] [address] [place] [address] Austin Sethi MD Medication Problem (Lorazepam) 12/24/2020 Telephone [facility] Neurology [address] [facility] [address] [place] [address] Austin Sethi MD Prior Authorization Request (lorazepam) 12/22/2020 Travel 12/22/2020 4:30 PM EDT Office Visit [facility] Neurology [address] [facility] [address] [place] [address] Austin Sethi MD Essential tremor (Primary Dx); PTSD (post-traumatic stress disorder) 12/15/2020 Refill [facility] Neurology [address] [facility] [address] [place] [address] Austin Sethi MD Refill Request (Xanax 0.25) 12/10/2020 10:30 AM EDT Office Visit [facility] Neurology [address] [facility] [address] [place] [address] Austin Sethi MD Essential tremor (Primary Dx) 12/09/2020 Telephone [facility] Neurology [address] [facility] [address] [place] [address] Austin Sethi MD Follow Up (DBS) 12/08/2020 Travel 12/08/2020 8:00 AM EDT Office Visit [facility] Neurology [address] [facility] [address] [place] [address] Austin Sethi MD Essential tremor (Primary Dx) 11/25/2020 Telephone [facility]rology [address] [facility] [address] [place] [address] Austin Sethi MD Other 10/30/2020 Refill [facility]rology [address] [facility] [address] [place] [address] Austin Sethi MD E-prescribing Refill Request 10/30/2020 Telephone [facility] Neurology [address] [facility] [address] [place] [address] Austin Sethi MD Medication Problem (primidone) 10/20/2020 Travel 10/20/2020 8:00 AM EDT Consult (Initial) [facility] Neu[facility] [address] [facility] [address] [place] [address] Austin Sethi MD Essential tremor (Primary Dx) 10/01/2020 Telephone [facility] Neurology [address] [facility] [address] [place] [address] Austin Sethi MD Appointment 03/13/2018 Orders Only [facility] Cardiology [address] [place] [address] [address] [place] [address] Jorge Pascual DO 03/13/2018 Orders Only [facility] Pre-Admission Testing [address] [place] [address] Yamilex Langston NP 03/13/2018 3:30 PM EDT Office Visit [facility] Pre-Admission Testing [address] [place] [address] Yamilex Langston NP Preop examination (Primary Dx); Gastroesophageal reflux disease, esophagitis presence not specified; Hyperlipidemia, unspecified hyperlipidemia type; Hypertension, unspecified type; Benign prostatic hyperplasia, unspecified whether lower urinary tract symptoms present; Mood disorder; RLS (restless legs syndrome); SAMMIE (obstructive sleep apnea) 03/13/2018 3:00 PM EDT Nurse Visit [facility] Pre-Admission Testing [address] [place] [address] Poonam Pedersen, RN Gastroesophageal reflux disease, esophagitis presence not specified (Primary Dx) 02/19/2018 2:45 PM EDT Consult (Initial) [facility] General Surgery [address] [facility] [address] [place] [address] Trevor Lo MD Gastroesophageal reflux disease without [...] problems Social History Smoking Status as of 03/27/2025 Tobacco Use Types Packs/Day Years Used Date [...] 66 06/07/2022 4:55 PM EDT Temperature 36.7 C (98 F) 03/13/2018 3:36 PM EDT Respiratory Rate 14 03/13/2018 3:36 PM EDT Oxygen Saturation - - Inhaled Oxygen Concentration - - Weight 98.9 kg (218 lb) 10/29/2021 4:34 PM EDT Height 182.9 cm (6') 03/13/2018 3:36 PM EDT Body Mass Index 29.57 03/13/2018 3:36 PM EDT Plan of Treatment Not on file Procedures * Due to [place] state law, this organization might not be [...] XRAY ESOPHAGUS 11/14/2017 Results * Due to [place] state law, this organization might not be [...] EDT 03/13/2018 8:44 PM EDT Yamilex Langston CARE PROGRAM RESIDENT CARDIOVASCULAR-WITH INBSK T RTG Final Result Performing Organization Address City/[facility]/ZIP Co de Phone Number [facility] EKG [facility] * PROTHROMBIN TIME (PT) (INR), BLOOD (03/13/2018 4:11 PM EDT) INR 1.0 [facility] Comment: Reference Range 0.9-1.1 Moderate-intensity Warfarin Therapy 2.0-3.0 Higher-intensity Warfarin Therapy 3.0-4.0 PT 10.7 9.0 - 11.5 sec [facility] Comment: For more information on this test, go to: [email or web address] 03/13/2018 4:11 PM EDT 03/13/2018 9:37 PM EDT Narrative Resulting Agency Comment [id number] Yamilex Langston CARE PROGRAM RESIDENT LAB SAME DAY RESULT Final Result [facility] [address] [place] [address] * CBC INCLUDES DIFFERENTIAL AND PLATELET COUNT [...] 9:37 PM EDT Narrative Resulting Agency Comment [id number] Yamilex Langston CARE PROGRAM RESIDENT LAB SAME DAY RESULT Final Result [facility] [address] [place] [address] * HEPATIC FUNCTION PANEL (ALT,AST,ALK PH,BILI'S,TP,ALB) (03/13/2018 [...] 9:37 PM EDT Narrative Resulting Agency Comment [id number] Yamilex Langston CARE PROGRAM RESIDENT LABORATORY Final Res ult [facility] [address] [place] [address] * BASIC METABOLIC PANEL WITH (GFR) (03/13/2018 4:11 PM EDT) Glucose 98 65 - 99 mg/dL [facility] Comment:Fasting reference in terval Urea Nitrogen Blood (BUN) 20 7 - 25 mg/dL [facility] Creatinine 1.05 0.70 - 1.25 mg/dL [facility] Comment: For patients >49 years of age, the reference limit for Creatinine is approximately 13% higher for people identified as -[place]. GFR 74 > OR = 60 mL/min/1 [...] needs for GFR calculation. Resulting Agency Comment [id number] Yamilex Langston CARE PROGRAM RESIDENT LABORATORY Final Res ult [facility] [address] [place] [address] * XRAY ESOPHAGUS (11/14/2017) 11/14/2017 us Pricila [...] legs syndrome) Restless legs syndrome (RLS) 03/13/2018 SAMMEI (obstructive sleep apnea) Obstructive sleep apnea (adult) [...] specified forms of tremor 06/07/2022 Care Teams Calenderer Relationship Specialty Start Date End Date Curt Wiseman MD [address] [address] PCP - General Family Medicine 02/10/21
--- OUTSIDE RECORDS SUMMARY | 2025-03-27 14:53 | XMS_ITS | Clinical Summary ---
Author Organization [facility] Address [address] [address] Phone Care Team Providers Care Rn Anesthetist Name Role Phone Adeline Guo MD Primary Care Provider + Allergies No known active allergies Medications MULTIVITAMIN ORAL Take by mouth. Active Bifidobacterium infantis (ALIGN ORAL) Take by mouth. Active cholecalciferol (VITAMIN D3) 2,000 unit capsule Take by mouth daily. Active omeprazole (PRILOSEC) 20 mg TbEC Take 20 mg by mouth daily before breakfast. Active aspirin 81 mg chewable tablet Take 81 mg by mouth daily. Active amLODIPine (NORVASC) 10 MG tablet Take 10 mg by mouth daily. Active finasteride (PROSCAR) 5 mg tablet Take 5 mg by mouth daily. Active lamoTRIgine (LAMICTAL) 200 MG IMMEDIATE release tablet Take 200 mg by mouth daily. Active ondansetron HCl (ZOFRAN ORAL) Take by mouth. Active metoprolol tartrate (LOPRESSOR) 75 mg Tab tablet Take by mouth. Active ezetimibe (ZETIA) 10 mg tablet Take 10 mg by mouth daily. Active atorvastatin (LIPITOR) 80 MG tablet Take 80 mg by mouth daily. Active traZODone (DESYREL) 50 MG tablet Take 50 mg by mouth nightly at bedtime. Active ALPRAZolam (XANAX) 0.25 MG tablet Take 0.25 mg by mouth nightly at bedtime as needed for sleep. Active sennosides (SENNA ORAL) Take by mouth. Active ACETAMINOPHEN ORAL Take by mouth. Active Social History Tobacco Use Types Packs/Day Years Used Date Smoking Tobacco: Never Smokeless Tobacco: Never Education Answer Date Recorded Are you interested in more education? Not on nori e 12/02/2022 Are you concerned about learning? Not on file 12/02/2022 No 12/02/2022 No 12/02/2022 Digital Access Answer Date Recorded No 12/31/2022 No 12/31/2022 No 12/31/2022 Reliable internet access at home? Not on file 12/31/2022 Device with a working camera? Not on file Sex and Gender Information Value Date Recorded Sex Assigned at Not on file Legal Sex Male 11:33 AM EST Gender Identity Not on file Sexual Orientation Not on file Last Filed Vital Signs Vital Sign Reading Time Taken Comments Blood Pressure - - Pulse - - Temperature 36.1 C (97 F) 03/14/2024 9:01 AM EDT Respiratory Rate - - Oxygen Saturation - - Inhaled Oxygen Concentration - - Weight 99.4 kg (219 lb 3.2 oz) 03/14/2024 9:01 A M EDT Height 181 cm (5' 11.26 ) 03/14/2024 9:01 AM EDT Body Mass Index 30.35 03/14/2024 9:01 AM EDT Plan of Treatment Health Maintenance Due Date Last Done Comments LIPID PANEL 1952 DEPRESSION SCREENING 1964 HEPATITIS C SCREENING 1970 COLOGUARD 1997 COLONOSCOPY 1997 COLORECTAL CANCER SCREENING 1997 FIT TEST 1997 FOBT 1997 SIGMOIDOSCOPY 1997 VIRTUAL COLONOSCOPY 1997 PNEUMOCOCCAL VACCINES (50+ years) (2 of 2 - PCV) 07/22/2012 07/22/2011 COVID-19 VACCINE (3 - 2023-2 5 season) 2024 10/08/2020, 09/17/2020 RSV VACCINE (1 - 1-dose 75+ series) 2027 Adult Td,Tdap Booster 10/13/2032 10/13/2022 SMOKING STATUS SCREENING (On ce After 26 Yrs) Completed 05/28/2021 ZOSTER VACCINES Completed 11/25/2021, 05/17/2021, 02/06/2012 HEPATITIS A VACCINES Aged Out No long er eligible based on patient's age to complete this topic HIB VACCINES Aged Out No longer eligi ble based on patient's age to complete this topic MENINGOCOCCAL VACCINES (ACWY) Aged Out No longer eligible based on patient's age to complete this topic MENINGOCOCCAL VACCINES (B) Aged Out N o longer eligible based on patient's age to complete this topic Medical Devices Not on file Insurance MEDICARE REPLACEMENT MEDICARE REPLACEMENT [facility] MEDICARE REPLACEMENT MEDICARE REPLACEMENT [facility] MEDICARE REPLACEMENT Care Teams Rn Anesthetist Relationship Specialty Start Date End Date Adeline Guo MD [address] [place] [address] PCP - General Pediatrics 10/01/19 Additional Source Comments The information contained in this document represents components of the legal health record. It is not the complete legal health record.[facility]
--- OUTSIDE RECORDS SUMMARY | 2025-03-27 14:53 | XMS_ITS | Clinical Summary ---
Author Organization [facility] Address [address] [place] [address] Care Team Providers Care Surface To Air Weapons Officer Name Role Phone Adeline Locke Primary Care [...] 93 03/08/2022 9:57 AM EDT Temperature 36.4 C (97.6 F) 09/12/2019 3:54 PM EST Respiratory Rate 18 07/13/2019 4:31 PM EST [...] of Health Annual Screening 08/07/2024 Influenza Vaccine (#1) 2025 , 04/07/2020, 05/24/2019, Additional history exists RSV Vaccine (60+ years old and patients) (1 - 1-dose 75+ series) 2027 Zoster Vaccines Completed 11/25/2021, 05/07, 02/06/2012 Pneumococcal Vaccine: 50+ Years Completed 12/08/2021, 07/22/2011 Hepatitis B Vaccines Aged Out No long er eligible based on patient's age to complete this topic Medical Devices Implanted Type Area Impregnator Helper Device Identifier Shelf Expiration Date Model / Serial / Lot Baseplate Reverse Shoulder Prosthesis With P2 Coating 30mm - [id number] Implanted:Qty: 1 on 07/12/2019 by Andrew Butler MD at [facility] Implant [employer] 05/03/2025 [id number] / / [id number] Head Glenoid With Retaining Screw Carson Shoulder Prosthesis Neutral 32mm - [id number] Implanted:Qty: 1 on 07/12/2019 by Andrew Butler MD at [facility] Implant [employer] 04/09/2025 [id number] / / [id number] Insert Socket Humeral Standard Hxe-Plus Rsp Sterile [id number] - [id number] Implanted:Qty: 1 on 07/12/2019 by Andrew Butler MD at [facility] Implant [employer] 05/31/2023 [id number] / / [id number] Stem Humeral Standard Reverse Shoulder Prosthesis [id number] - [id number] Implanted:Qty: 1 on 07/12/2019 by Andrew Butler MD at [facility] Implant [employer] 07/12/2024 530-10-108 / / [id number] Screw Locking Reverse Shoulder Prosthesis [id number] - [id number] Implanted:Qty: 1 on 07/12/2019 by Andrew Butler MD at [facility] Screw [employer] 03/24/2025 [id number] / / [id number] Screw Locking Bone Reverse Shoulder Prosthesis [id number] - [id number] Implanted:Qty: 1 on 07/12/2019 by Andrew Butler MD at [facility] Screw [employer] 04/19/2025 [id number] / / [id number] Screw Locking Reverse Shoulder Prosthesis [id number] - [id number] Implanted:Qty: 1 on 07/12/2019 by Andrew Butler MD at [facility] Scre[employer] 02/27/2025 [id number] / / [id number] Insurance [facility] Advance Directives * Full Code (Latest Code Status on File) Date Activated Date Inactivated Comments 07/12/2019 1:40 PM 07/13/2019 8:20 PM * Full Code Date Activated Date Inactivated Comments 07/12/2019 6:13 AM 07/12/2019 1:40 PM Care Teams Surface To Air Weapons Officer Relationship Specialty Start Date End Date Adeline Locke PCP - General Pediatrics 11/14/17
[2025-03-27 15:05] VITALS: BMI 29.3
== END 2025-03-27 15:47 | disposition home or self-care (01) ==
LOC: HO.HOS 14:49
PROVIDERS: PCP Family Medicine; Visit Provider Orthopaedic Surgery
DX: M25.562 Pain in left knee (principal); M16.12 Unilateral primary osteoarthritis, left hip; M54.16 Radiculopathy, lumbar region
CPT/HCPCS: 20610; 99214

== ENCOUNTER → 2025-03-27 14:49 | Outpatient (BNVA) | payer MEDICARE, SELFPAY | PROVIDERS: PCP Family Medicine; Visit Provider Orthopaedic Surgery | DX: M25.562 Pain in left knee (principal); M16.12 Unilateral primary osteoarthritis, left hip; M54.16 Radiculopathy, lumbar region; Z96.651 Presence of right artificial knee joint | CPT/HCPCS: 20610; 99212; J0665; J1100; J2003 ==

== ENCOUNTER 2025-04-02 13:18 | Outpatient (AMB) | payer MEDICARE, SELFPAY ==
--- NOTE | 2025-04-02 13:23 | A.OFFVIS_ITS ---
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 Est Pt Level 4 (03365) Diagnoses Encounter for subsequent annual wellness visit (AWV) in Medicare patient Z00.00 Essential hypertension I10 Coronary artery disease involving [place] coronary artery of [place] heart without angina pectoris I25.10 Coronary Disease-Associated Artery/Lesion type: [place] artery [place] vs. transplanted heart: [place] heart Associated angina: without angina Mixed hyperlipidemia E78.2 Hyperlipidemia type: mixed hyperlipidemia Obesity (BMI 30-39.9) E66.9 Gastroesophageal reflux disease without esophagitis K21.9 Esophagitis presence: without esophagitis Benign prostatic hyperplasia without lower urinary tract symptoms N40.0 Lower urinary tract symptom presence: symptoms absent ACP (advance care planning) Z71.89 Physician orders for life-sustaining treatment (POLST) form indicates patient wish for full code resuscitation status Z78.9 Impacted cerumen, left ear H61.22 CPT Codes Advance Care Planning - Time spent: 1-15 minutes, not on file ([id number]) Office Procedure - CPT: 83153-Qpy Irrigation/Lavage ([id number]) EKG - CPT: 83226-Riqaucujkuvbuojak, Complete ([id number]) Vision Screening - Vision Screenin - Vision Screening ([id number]) Advance Care Planning Advance Care Planning discussion: Exists, not on file Date of discussion: 04/02/25 Forms completed: Health Care Proxy, MOLST and Living will Time spent: 1-15 minutes, not on file Actual minutes spent: 5
[2025-04-02 13:26] VITALS: BP 118/68; PULSE 60; RESP 12; TEMP 36.1; O2SAT 96; BMI 30.6
--- OUTSIDE RECORDS SUMMARY | 2025-04-02 14:09 | XMS_ITS | Encounter Summary ---
Author Organization [facility] Address [address] [place] [address] Care Team Providers Care Boots And Shoes Supervisor Name Role Phone Adeline Guo MD Primary Care Provider +- [phone] Feliciano Evans MD Unavailable Unavailable Yara Harding MD Unavailable [phone] Curt Wiseman MD Primary Care Provider +[phone] Encounter Details Date Type Department Care Team (Late Contact Info) Description 08/05/2020 Scanned Document [facility] Neurosurgery [place] [address] [phone] Monroe Choi MD [address] [address] Social History Tobacco Use Types Packs/Day Years [...] Description 05/05/2025 1:00 PM EDT Procedure visit [facility] Neurology [address] [phone] Suman Dudley MD [address] [place], [place] [address] [address] documented as of this encounter Visit Diagnoses Not on filedocumented in this encounter Care Teams Boots And Shoes Supervisor Relationship Specialty Start Date End Date Adeline Guo MD [address] [place] [address] PCP - General Internal Medicine 03/10/20 10/13/24 Curt Wiseman MD [address] [place] [address] PCP - General Family Medicine 10/14/24 Feliciano Evans MD [address] [place] [address] Referring Provider 10/28/20 Yara Harding MD [address] [place] [address] Neurology 03/20/23 Austin Sethi [address] [place] [address] Neurology Neurology 06/07/22 documented as of this encounter
--- OUTSIDE RECORDS SUMMARY | 2025-04-02 14:09 | XMS_ITS | Continuity of Care Document ---
Author Organization [facility] Address [address] [place] [address] Care Team Providers Care Radio Presenter Name Role Phone Curt Wiseman MD Primary Care Provider [phone] Encounters Date Type Department Care Team Description [facility]23 [facility] Neurology [address] [facility] [address] [place] [address] Austin Sethi MD E-prescribing Refill Request 10/10/2023 Refill [facility] Neurology [address] [facility] [address] [place] [address] Austin Sethi MD Refill Request 06/25/2023 Refill [facility] Neurology [address] [facility] [address] [place] [address] Austin Sethi MD Med Change Request; Refill Request 05/22/2023 Refill [facility] Neurology [address] [facility] [address] [place] [address] Austin Sethi MD E-prescribing Refill Request 03/20/2023 Telephone [facility] Neurology [address] [facility] [address] [place] [address] Austin Sethi MD Medication Check 02/20/2023 Refill [facility] Neurology [address] [facility] [address] [place] [address] Austin Sethi MD E-prescribing Refill Request 01/10/2023 Refill [facility] Neurology [address] [facility] [address] [place] [address] Austin Sethi MD E-prescribing Refill Request 08/08/2022 Refill [facility] Neurology [address] [facility] [address] [place] [address] Austin Sethi MD E-prescribing Refill Request 07/25/2022 Telephone [facility] Neurology [address] [facility] [address] [place] [address] Austin Sethi MD Appointment 06/07/2022 4:30 PM EDT Office Visit [facility] Neurology [address] [facility] [address] [place] [address] Austin Sethi MD Essential tremor (Primary Dx) 05/23/2022 Refill [facility] Neurology [address] [facility] [address] [place] [address] Austin Sethi MD E-prescribing Refill Request 03/11/2022 Telephone [facility] Neurology [address] [facility] [address] [place] [address] Austin Sethi MD Follow Up 03/07/2022 8:15 AM EDT Office Visit [facility] Neurology [address] [facility] [address] [place] [address] Austin Sethi MD Essential tremor (Primary Dx) 02/22/2022 Telephone [facility] Neurology [address] [facility] [address] [place] [address] Austin Sethi MD Appointment 01/19/2022 Telephone [facility] Neurology [address] [facility] [address] [place] [address] Austin Sethi MD Follow Up 12/24/2021 Refill [facility] Neurology [address] [facility] [address] [place] [address] Austin Sethi MD 12/11/2021 Refill [facility] Neurology [address] [facility] [address] [place] [address] Austin Sethi MD E-prescribing Refill Request 11/15/2021 Telephone [facility] Neurology [address] [facility] [address] [place] [address] Austin Sethi MD Follow Up (DBS adjustment ) 10/29/2021 4:00 PM EDT Office Visit [facility] Neurology [address] [facility] [address] [place] [address] Austin Sethi MD Essential tremor (Primary Dx) 10/28/2021 Refill [facility] Neurology [address] [facility] [address] [place] [address] Toma Salas MD E-prescribing Refill Request 09/26/2021 Refill [facility] Neurology [address] [facility] [address] [place] [address] Austin Sethi MD E-prescribing Refill Request 09/12/2021 Refill [facility] Neurology [address] [facility] [address] [place] [address] Austin Sethi MD E-prescribing Refill Request 07/23/2021 Telephone [facility] Neurology [address] [facility] [address] [place] [address] Lorna Prado, SONALI Appointment 05/03/2021 3:30 PM EDT Office Visit [facility] Neurology [address] [facility] [address] [place] [address] Austin Sethi MD Essential tremor (Primary Dx) 04/16/2021 Telephone [facility] Neurology [address] [facility] [address] [place] [address] Austin Sethi MD Appointment 01/29/2021 4:45 PM EDT Office Visit [facility] Neurology [address] [facility] [address] [place] [address] Austin Sethi MD Essential tremor (Primary Dx) 12/31/2020 Telephone [facility] Neurology [address] [facility] [address] [place] [address] Austin Sethi MD Follow Up (DBS) 12/25/2020 Telephone [facility] Neurology [address] [facility] [address] [place] [address] Austin Sethi MD Medication Problem (Lorazepam) 12/24/2020 Telephone [facility] Neurology [address] [facility] [address] [place] [address] Austin Sethi MD Prior Authorization Request (lorazepam) 12/22/2020 Travel 12/22/2020 4:30 PM EDT Office Visit [facility] Neurology [address] [facility] [address] [place] [address] Austin Sethi MD Essential tremor (Primary Dx); PTSD (post-traumatic stress disorder) 12/15/2020 Refill [facility] Neurology [address] [facility] [address] [place] [address] Austin Sethi MD Refill Request (Xanax 0.25) 12/10/2020 10:30 AM EDT Office Visit [facility] Neurology [address] [facility] [address] [place] [address] Austin Sethi MD Essential tremor (Primary Dx) 12/09/2020 Telephone [facility] Neurology [address] [facility] [address] [place] [address] Austin Sethi MD Follow Up (DBS) 12/08/2020 Travel 12/08/2020 8:00 AM EDT Office Visit [facility] Neurology [address] [facility] [address] [place] [address] Austin Sethi MD Essential tremor (Primary Dx) 11/25/2020 Telephone [facility] Neurology [address] [facility] [address] [place] [address] Austin Sethi MD Other 10/30/2020 Refill [facility] Neurology [address] [facility] [address] [place] [address] Austin Sethi MD E-prescribing Refill Request 10/30/2020 Telephone [facility] Neurology [address] [facility] [address] [place] [address] Austin Sethi MD Medication Problem (primidone) 10/20/2020 Travel 10/20/2020 8:00 AM EDT Consult (Initial) [facility] Neurology [address] [facility] [address] [place] [address] Austin Sethi MD Essential tremor (Primary Dx) 10/01/2020 Telephone [facility] Neurology [address] [facility] [address] [place] [address] Austin Sethi MD Appointment 03/13/2018 Orders Only [facility] Cardiology [address] [place] [address] [address] [place] [address] Jorge Pascual DO 03/13/2018 Orders Only [facility] Pre-Admission Testing [address] [place] [address] Yamilex Langston NP 03/13/2018 3:30 PM EDT Office Visit [facility] Pre-Admission Testing [address] [place] [address] Yamilex Langston NP Preop examination (Primary Dx); Gastroesophageal reflux disease, esophagitis presence not specified; Hyperlipidemia, unspecified hyperlipidemia type; Hypertension, unspecified type; Benign prostatic hyperplasia, unspecified whether lower urinary tract symptoms present; Mood disorder; RLS (restless legs syndrome); SAMMIE (obstructive sleep apnea) 03/13/2018 3:00 PM EDT Nurse Visit [facility] Pre-Admission Testing [address] [place] [address] Poonam Pedersen, RN Gastroesophageal reflux disease, esophagitis presence not specified (Primary Dx) 02/19/2018 2:45 PM EDT Consult (Initial) [facility] General Surgery [address] [facility] [address] [place] [address] Trevor Lo MD Gastroesophageal reflux disease without [...] problems Social History Smoking Status as of 04/02/2025 Tobacco Use Types Packs/Day Years Used Date [...] Not on file Procedures * Due to [place] state law, this organization might not be [...] XRAY ESOPHAGUS 11/14/2017 Results * Due to [place] state law, this organization might not be [...] EDT 03/13/2018 8:44 PM EDT Yamilex Langston CLINICAL PHYSICIAN ASSISTANT CARDIOVASCULAR-WITH INBSK T RTG Final Result Performing Organization Address City/[facility]/ZIP Co de Phone Number [facility] E[facility] * PROTHROMBIN TIME (PT) (INR), BLOOD (03/13/2018 4:11 PM EDT) INR 1.0 [facility] Comment: Reference Range 0.9-1.1 Moderate-intensity Warfarin Therapy 2.0-3.0 Higher-intensity Warfarin Therapy 3.0-4.0 PT 10.7 9.0 - 11.5 sec [facility] Comment: For more information on this test, go to: [email or web address] 03/13/2018 4:11 PM EDT 03/13/2018 9:37 PM EDT Narrative Resulting Agency Comment [id number] us Yamilex Langston CLINICAL PHYSICIAN ASSISTANT LAB SAME DAY RESULT Final Result [facility] [address] [place] [address] * CBC INCLUDES DIFFERENTIAL AND PLATELET COUNT [...] 9:37 PM EDT Narrative Resulting Agency Comment [id number] Yamilex Langston CLINICAL PHYSICIAN ASSISTANT LAB SAME DAY RESULT Final Result [facility] [address] [place] [address] * HEPATIC FUNCTION PANEL (ALT,AST,ALK PH,BILI'S,TP,ALB) (03/13/2018 [...] 9:37 PM EDT Narrative Resulting Agency Comment [id number] Yamilex Langston CLINICAL PHYSICIAN ASSISTANT LABORATORY Final Res ult [facility] [address] [place] [address] * BASIC METABOLIC PANEL WITH (GFR) (03/13/2018 4:11 PM EDT) Glucose 98 65 - 99 mg/dL [facility] Comment:Fasting reference in terval Urea Nitrogen Blood (BUN) 20 7 - 25 mg/dL [facility] Creatinine 1.05 0.70 - 1.25 mg/dL [facility] Comment: For patients >49 years of age, the reference limit for Creatinine is approximately 13% higher for people identified as -[place]ian. GFR 74 > OR = 60 mL/min/1 [...] needs for GFR calculation. Resulting Agency Comment [id number] Yamilex Langston CLINICAL PHYSICIAN ASSISTANT LABORATORY Final Res ult [facility] [address] [place] [address] * XRAY ESOPHAGUS (11/14/2017) 11/14/2017 us Pricila [...] specified forms of tremor 06/07/2022 Care Teams Radio Presenter Relationship Specialty Start Date End Date Curt Wiseman MD [address] [address] PCP - General Family Medicine 02/10/21
--- OUTSIDE RECORDS SUMMARY | 2025-04-02 14:09 | XMS_ITS | Clinical Summary ---
Author Organization [facility] Address [address] [place] [address] Care Team Providers Care Swimming Pool Attendant Name Role Phone Adeline Locke Primary Care [...] this topic Medical Devices Implanted Type Area Lye Boiler Device Identifier Shelf Expiration Date Model / Serial / Lot Baseplate Reverse Shoulder Prosthesis With P2 Coating 30mm - [id number] Implanted:Qty: 1 on 07/12/2019 by Andrew Butler MD at [facility] Implant [employer] 05/03/2025 [id number] / / [id number] Head Glenoid With Retaining Screw [place] Shoulder Prosthesis Neutral 32mm - [id number] Implanted:Qty: 1 on 07/12/2019 by Andrew Butler MD at [facility] Implant [employer] 04/09/2025 [id number] / / [id number] Insert Socket Humeral Standard Hxe-Plus Rsp Sterile [id number] - [id number] Implanted:Qty: 1 on 07/12/2019 by Andrew Butler MD at [facility] Implant [employer] 05/31/2023 [id number] / / [id number] Stem Humeral Standard Reverse Shoulder Prosthesis [id number] - [id number] Implanted:Qty: 1 on 07/12/2019 by Andrew Butler MD at [facility] Implant [employer] 07/12/2024 530-10-108 / / [id number] Screw Locking Reverse Shoulder Prosthesis [id number] - [id number] Implanted:Qty: 1 on 07/12/2019 by Andrew Butler MD at [facility] Scre[employer] 03/24/2025 506-03-130 / / [id number] Screw Locking Bone Reverse Shoulder Prosthesis [id number] - [id number] Implanted:Qty: 1 on 07/12/2019 by Andrew Butler MD at [facility] Screw [employer] 04/19/2025 506-03-122 / / [id number] Screw Locking Reverse Shoulder Prosthesis [id number] - [id number] Implanted:Qty: 1 on 07/12/2019 by Andrew Butler MD at [facility] [employer] 02/27/2025 506-03-130 / / [id number] Insurance [facility] Advance Directives * Full Code (Latest Code Status on File) Date Activated Date Inactivated Comments 07/12/2019 1:40 PM 07/13/2019 8:20 PM * Full Code Date Activated Date Inactivated Comments 07/12/2019 6:13 AM 07/12/2019 1:40 PM Care Teams Swimming Pool Attendant Relationship Specialty Start Date End Date Adeline Locke PCP - General Pediatrics 11/14/17
--- OUTSIDE RECORDS SUMMARY | 2025-04-02 14:10 | XMS_ITS | Encounter Summary ---
Author Organization [facility] Address [address] [place] [address] Care Team Providers Care Chargemaster Specialist Name Role Phone Adeline Guo MD Primary Care Provider +- [phone] Feliciano Evans MD Unavailable Unavailable Yara Harding MD Unavailable [phone] Curt Wiseman MD Primary Care Provider [phone] Encounter Details Date Type Department Care Team (Late Contact Info) Description 05/15/2020 Scanned Document [facility] Neurosurgery [place] [address] [facility] [address] [place] [address] Marcelino Steen MD 35 [facility] 5 [place] [address] Social History Tobacco Use Types Packs/Day Years [...] Description 05/05/2025 1:00 PM EDT Procedure visit [facility] Neurology [place] 35 [facility] [address] [place] [phone] Suman Dudley MD [address] [place] [address] [place] [address] documented as of this encounter Visit Diagnoses Not on filedocumented in this encounter Care Teams Chargemaster Specialist Relationship Specialty Start Date End Date Adeline Guo MD [address] [place] [address] PCP - General Internal Medicine 03/10/20 10/13/24 Curt Wiseman MD [address] [place] [address] Dr [address] [place] [address] PCP - General Family Medicine 10/14/24 Feliciano Evans MD [address] [place] [address] Referring Provider 10/28/20 Yara Harding MD [address] [place] [address] Neurology 03/20/[address] [address] Neurology Neurology 06/07/22 documented as of this encounter
--- OUTSIDE RECORDS SUMMARY | 2025-04-02 14:10 | XMS_ITS | Encounter Summary ---
Author Organization [facility] Address [address] [place] [address] Care Team Providers Care Control Panel Assembler Name Role Phone Adeline Guo MD Primary Care Provider +- [phone] Feliciano Evans MD Unavailable Unavailable Yara Harding MD Unavailable [phone] Curt Wiseman MD Primary Care Provider [phone] Encounter Details Date Type Department Care Team (Late st Contact Info) Description 05/31/2022 Scanned Document [facility] Neurosurgery [place] 85 [facility] [address] [place] [phone] Monroe Choi MD 85 [facility] [place] [address] [place] [address] Social History Tobacco Use Types Packs/Day Years [...] Care Team (Late st Contact Info) Description 05/05/2025 1:00 PM EDT Procedure visit [facility] Neurology [place] 35 [facility] [address] [place] [address] Suman Dudley MD [address] [address] documented as of this encounter Visit Diagnoses Not on filedocumented in this encounter Care Teams Control Panel Assembler Relationship Specialty Start Date End Date Adeline Guo MD [address] [place] [address] PCP - General Internal Medicine 03/10/20 10/13/24 Curt Wiseman MD [address] [place] [address] Dr [address] [place] [address] PCP - General Family Medicine 10/14/24 Feliciano Evans MD [address] [place] [address] Referring Provider 10/28/20 Yara Harding MD [address] [place] [address] Neurology 03/20/23 Austin Sethi [address] [place] [address] Neurology Neurology 06/07/22 documented as of this encounter
--- OUTSIDE RECORDS SUMMARY | 2025-04-02 14:10 | XMS_ITS | Clinical Summary ---
Author Organization [facility] Address [address] [address] Phone Care Team Providers Care Catering Server Name Role Phone Adeline Guo MD Primary [...] 2 - PCV) 07/22/2012 07/22/2011 COVID-19 VACCINE ( - season) 2024 10/08/2020, 09/17/2020 INFLUENZA VACCINE (#1) 2025 , 04/07/2020, 05/24/2019, Additional history exists RSV VACCINE (1 - 1-dose 75+ series) 2027 Adult Td,Tdap Booster 10/13/2032 10/13/2022 SMOKING STATUS SCREENING (Once After 26 Yrs) Completed 05/28/2021 ZOSTER VACCINES Completed 11/25/2021, 05/07, 02/06/2012 HEPATITIS A VACCINES Aged Out No [...] on file Insurance MEDICARE REPLACEMENT MEDICARE REPLACEMENT MEDICARE REPLACEMENT MEDICARE REPLACEMENT MEDICARE REPLACEMENT Care Teams Catering Server Relationship Specialty Start Date End Date Adeline Guo MD [address] [place] [address] PCP - General Pediatrics 10/01/19 Additional Source Comments The information contained in this document represents components of the legal health record. It is not the complete legal health record.[facility]
--- OUTSIDE RECORDS SUMMARY | 2025-04-02 14:10 | XMS_ITS | Encounter Summary ---
Author Organization [facility] Address [address] [place] [address] Care Team Providers Care Electrical Instrument Technician Name Role Phone Adeline Guo MD Primary Care Provider +- [phone] Feliciano Evans MD Unavailable Unavailable Yara Harding MD Unavailable [phone] Curt Wiseman MD Primary Care Provider [phone] Encounter Details Date Type Department Care Team (Late Contact Info) Description 04/07/2020 Scanned Document [facility] Neurosurgery [place] [address] [facility] [address] [place] [phone] Monroe Choi MD 85 [facility] [place] [address] [place] [address] Social History Tobacco Use Types Packs/Day Years [...] Description 05/05/2025 1:00 PM EDT Procedure visit [facility] Neurology [place] 35 [facility] [address] [place] [address] Suman Dudley MD [address] [address] [place] [address] documented as of this encounter Visit Diagnoses Not on filedocumented in this encounter Care Teams Electrical Instrument Technician Relationship Specialty Start Date End Date Adeline Guo MD [address] [place] [address] PCP - General Internal Medicine 03/10/20 10/13/24 Curt Wiseman MD [address] [place] [address] Dr [address] [place] [address] PCP - General Family Medicine 10/14/24 Feliciano Evans MD [address] [place] [address] Referring Provider 10/28/20 Yara Harding MD [address] [place] [address] Neurology 03/20/[address] [address] Neurology Neurology 06/07/22 documented as of this encounter
--- OUTSIDE RECORDS SUMMARY | 2025-04-02 14:10 | XMS_ITS | Encounter Summary ---
Author Organization [facility] Address [address] [place] [address] Care Team Providers Care Shrimp Peeling Machine Tender Name Role Phone Adeline Guo MD Primary Care Provider [phone]- [phone] Curt Wiseman MD Primary Care Provider +[phone]- [phone] Encounter Details Date Type Department Care Team ([facility] st Contact Info) Description 03/13/[address] [facility] Pre-Admission Testing [address] [place] [address] Yamilex Langston NP Social History Tobacco Use [...] of this encounter Procedures * Due to [place] state law, this organization might not be [...] in this encounter Results * Due to [place] state law, this organization might not be [...] 03/13/2018 8:44 PM EDT us Yamilex Langston HEAT SEAL OPERATOR CARDIOVASCULAR-WITH INBSK T RTG Final Result MUSE EKG SYSTEM * PROTHROMBIN TIME (PT) (INR), BLOOD (03/13/2018 4:11 PM EDT) Pathologist [facility] INR 1.0 [facility] Comment: Reference Range 0.9-1.1 Moderate-intensity Warfarin Therapy 2.0-3.0 Higher-intensity Warfarin Therapy 3.0-4.0 PT 10.7 9.0 - 11.5 sec [facility] Comment: For more information on this test, go to: http://education.EndoChoice/faq/[email or web address] 03/13/2018 4:1 1 PM EDT 03/13/2018 9:37 PM EDT Narrative Resulting Agency Comment [id number] Yamilex Langston NP LAB SAME DAY RESULT Final Result Performing Organization Address [facility] de Phone Number [facility] [address] [place] [address] * HEPATIC FUNCTION PANEL (ALT,AST,ALK PH,BILI'S,TP,ALB) (03/13/2018 [...] 9:37 PM EDT Narrative Resulting Agency Comment [id number] Yamilex Langston HEAT SEAL OPERATOR LABORATORY Final Res ult Performing Organization Address [facility]/ZIP Co de Phone Number [facility] [address] [place] [address] * CBC INCLUDES DIFFERENTIAL AND PLATELET COUNT [...] 9:37 PM EDT Narrative Resulting Agency Comment [id number] Yamilex Langston HEAT SEAL OPERATOR LAB SAME DAY RESULT Final Result Performing Organization Address City/[facility]/ZIP Co de Phone Number [facility] [address] [place] [address] * BASIC METABOLIC PANEL WITH (GFR) (03/13/2018 4:11 PM EDT) Pathologist [facility] Glucose 98 65 - 99 mg/dL [facility] Comment:Fasting reference in terval Urea Nitrogen Blood (BUN) 20 7 - 25 mg/dL [facility] Creatinine 1.05 0.70 - 1.25 mg/dL [facility] Comment: For patients >49 years of age, the reference limit for Creatinine is approximately 13% higher for people identified as -Malagasy. GFR 74 > OR = 60 mL/min/1 [...] needs for GFR calculation. Resulting Agency Comment [id number] us Yamilex Langston HEAT SEAL OPERATOR LABORATORY Final Res ult [facility] [address] [place] [address] documented in this encounter Visit Diagnoses Diagnosis Preop examination Preoperative examination, unspecified Gastroesophageal reflux disease, esophagitis presence not specified Hyperlipidemia, unspecified hyperlipidemia type Hypertension, unspecified type Benign prostatic hyperplasia, unspecified whether lower urinary tract symptoms present Mood disorder Unspecified episodic mood disorder RLS (restless legs syndrome) Restless legs syndrome (RLS) documented in this encounter Care Teams Shrimp Peeling Machine Tender Relationship Specialty Start Date End Date Adeline Guo MD [address] [address] PCP - General Internal Medicine 11/30/17 02/09/21 Curt Wismean MD [address] [place] [address] PCP - General Family Medicine 02/10/21 documented as of this encounter
--- OUTSIDE RECORDS SUMMARY | 2025-04-02 14:10 | XMS_ITS | Encounter Summary ---
Author Organization [facility] Address [address] [place] [address] Care Team Providers Care Wrapping Checker Name Role Phone Adeline Guo MD Primary Care Provider +- [phone] Feliciano Evans MD Unavailable Unavailable Yara Harding MD Unavailable [phone] Curt Wiseman MD Primary Care Provider [phone] Encounter Details Date Type Department Care Team (Late st Contact Info) Description 10/28/2021 Scanned Document [facility] Neurosurgery [address] [address] Monroe Choi MD [address] [place] [address] Social History Tobacco Use Types Packs/Day [...] Description 05/05/2025 1:00 PM EDT Procedure visit [facility] Neurology [address] [place] [address] Suman Dudley MD [address] [place] [address] [place] [address] documented as of this encounter Visit Diagnoses Not on filedocumented in this encounter Care Teams Wrapping Checker Relationship Specialty Start Date End Date Adeline Guo MD [address] [place] [address] PCP - General Internal Medicine 03/10/20 10/13/24 Curt Wiseman MD [address] [place] [address] [place] [address] PCP - General Family Medicine 10/14/24 Feliciano Evans MD [address] [place] [address] Referring Provider 10/28/20 Yara Harding MD [address] [place] [address] Neurology 03/20/23 Austin Sethi [address] [place] [address] Neurology Neurology 06/07/22 documented as of this encounter
--- OUTSIDE RECORDS SUMMARY | 2025-04-02 14:10 | XMS_ITS | Encounter Summary ---
Author Organization [facility] Address [address] [place] [address] Care Team Providers Care Call Center Trainer Name Role Phone Adeline Guo MD Primary Care Provider +- [phone] Feliciano Evans MD Unavailable Unavailable Yara Harding MD Unavailable [phone] Curt Wiseman MD Primary Care Provider [phone] Encounter Details Date Type Department Care Team (Late Contact Info) Description 06/18/2020 Scanned Document [facility] Neurosurgery [place] 85 [facility] [address] [place] [phone] Monroe Choi MD 85 [facility] [place] [address] [place] [address] Social History Tobacco Use Types Packs/Day Years [...] Description 05/05/2025 1:00 PM EDT Procedure visit [facility] Neurology [place] 35 [facility] [address] [place] [address] Suman Dudley MD [address] [address] documented as of this encounter Visit Diagnoses Not on filedocumented in this encounter Care Teams Call Center Trainer Relationship Specialty Start Date End Date Adeline Guo MD [address] [place] [address] PCP - General Internal Medicine 03/10/20 10/13/24 Curt Wiseman MD [address] [place] [address] Dr Garcia [address] [place] [address] PCP - General Family Medicine 10/14/24 Feliciano Evans MD [address] [place] [address] Referring Provider 10/28/20 Yara Harding MD [address] [place] [address] Neurology 03/20/[address] [address] Neurology Neurology 06/07/22 documented as of this encounter
--- OUTSIDE RECORDS SUMMARY | 2025-04-02 14:10 | XMS_ITS | Encounter Summary ---
Author Organization [facility] Address [address] [place] [address] Care Team Providers Care Shipping Receiving Clerk Name Role Phone Adeline Guo MD Primary Care Provider [phone]- [phone] Feliciano Evans MD Unavailable Unavailable Yara Harding MD Unavailable [phone] Curt Wiseman MD Primary Care Provider [phone] Reason for Referral * Surgical (Routine) - Closed Specialty Diagnoses / Procedures Referred By Contanjel t Referred To Contact Anesthesiology Diagnoses Benign essential tremor Monroe Choi MD [address] [place] [address] Phone: tel: fax: [facility] at [address] [place] [address] Phone: tel: fax: Referral ID Status Reason Start Date Expiration Date V isits Requested Visits Authorized [id number] Closed Specialty Services Required 11/14/2020 11/15/2021 1 1 Encounter Details Date Type Department Care Team (Late st Contact Info) Description 10/26/2020 Prep for Surgery [facility] Neurosurgery [address] [place] [phone] Emilee Brewer RN [address] [place], [place] [id number] Benign essential tremor (Primary Dx) Social History [...] Description 05/05/2025 1:00 PM EDT Procedure visit [facility] Neurology [address] [address] Suman Dudley MD [address] [phone] (Work) Scheduled Referrals Name Type Priority Associated Diagnoses Order Schedule Ambulatory referral to Anesthesiology Outpatient Referral Routine Benign essential tremor Ordered: 11/14/2020 documented as of this encounter Visit Diagnoses Diagnosis Benign essential tremor- Primary Essential and other specified forms of tremor documented in this encounter Care Teams Shipping Receiving Clerk Relationship Specialty Start Date End Date Adeline Guo MD [address] [place] [address] [place] [address] PCP - General Internal Medicine 03/10/20 10/13/24 Curt Wiseman MD [address] [place] [address] [place] [address] PCP - General Family Medicine 10/14/24 Feliciano Evans MD [address] [place] [address] Referring Provider 10/28/20 Yara Harding MD [address] [place] [address] Neurology 03/20/23 Austin Sethi [address] [place] [address] Neurology Neurology 06/07/22 documented as of this encounter
--- OUTSIDE RECORDS SUMMARY | 2025-04-02 14:10 | XMS_ITS | Encounter Summary ---
Author Organization [facility] Address [address] [place] [address] Care Team Providers Care Code Official Name Role Phone Pcp, No Primary Care Provider Adeline Moe MD Primary Care Provider +- [phone] Feliciano Evans MD Unavailable Unavailable Yara Harding MD Unavailable [phone] Curt Wiseman MD Primary Care Provider [phone]- [phone] Encounter Details Date Type Department Care Team (Late st Contact Info) Description 02/25/2020 Scanned Document [facility] Neurosurgery [place] [address] [phone] Monroe Choi MD 85 [facility] [place] [address] [place] [address] Social History Tobacco Use Types Packs/Day Years [...] Description 05/05/2025 1:00 PM EDT Procedure visit [facility] Neurology [address] [place] [address] Suman Dudley MD 35 [facility] 6 [place] [address] documented as of this encounter Visit Diagnoses Not on filedocumented in this encounter Care Teams Code Official Relationship Specialty Start Date End Date Pcp, No [address] [place] [address] PCP - General 11/26/18 03/09/20 Adeline uGo MD [address] [place] [address] PCP - General Internal Medicine 03/10/20 10/13/24 Curt Wiseman MD [address] [place] [address] Dr Garcia [address] [place] [address] PCP - General Family Medicine 10/14/24 Feliciano Evans MD [address] [place] [address] Referring Provider 10/28/20 Yara Harding MD [address] [place] [address] Neurology 03/20/23 Austin Sethi [address] [place] [address] Neurology Neurology 06/07/22 documented as of this encounter
--- OUTSIDE RECORDS SUMMARY | 2025-04-02 14:10 | XMS_ITS | Encounter Summary ---
Author Organization [facility] Address [address] [place] [address] Care Team Providers Care Spring Repairer Helper Hand Name Role Phone Adeline Guo MD Primary Care Provider +- [phone] Feliciano Evans MD Unavailable Unavailable Yara Harding MD Unavailable [phone] Curt Wiseman MD Primary Care Provider [phone] Encounter Details Date Type Department Care Team (Late st Contact Info) Description 02/28/2023 [facility] Neurology [address] [place] [address] Yara Harding MD [facility] [address] [place] [address] Social History Tobacco Use Types Packs/Day Years [...] 1:00 PM EDT Procedure visit [facility] Neurology [place] 35 [facility] 6 [place] [address] Suman Dudley MD [address] [address] documented as of this encounter Visit Diagnoses Not on filedocumented in this encounter Care Teams Spring Repairer Helper Hand Relationship Specialty Start Date End Date Adeline Guo MD [address] [place] [address] PCP - General Internal Medicine 03/10/20 10/13/24 Curt Wiseman MD [address] [place] [address] Dr Garcia [address] [place] [address] PCP - General Family Medicine 10/14/24 Feliciano Evans MD [address] [place] [address] Referring Provider 10/28/20 Yara Harding MD [address] [place] [address] Neurology 03/20/23 Austin Sethi [address] [place] [phone] Neurology Neurology 06/07/22 documented as of this encounter
--- OUTSIDE RECORDS SUMMARY | 2025-04-02 14:10 | XMS_ITS | Encounter Summary ---
Author Organization [facility] Address [address] [place] [address] Care Team Providers Care Beater Boss Name Role Phone Curt Wiseman MD Primary Care Provider [phone] Encounter Details Date Type Department Care Team (Late st Contact Info) Description 01/08/[address] [facility] - Main Lab [address] [facility] [place] [address] Hussein Nix, ANGEL [address] [place] [phone] Urinary tract infection, site not specified Social [...] Urine No growth 01/09/2025 1:14 PM EDT [facility] Urine Urine specimen obtained by clean catch procedure / Unknown 01/08/2025 2:15 PM EDT 01/08/2025 6:02 PM EDT us Hussein [facility] MICROBIOLOGY - GENERAL ORD ERABLES Final Result [facility] [address] [place] [address], documented in this encounter Visit Diagnoses Diagnosis Urinary tract infection, site not specified documented in this encounter Care Teams Beater Boss Relationship Specialty Start Date End Date Curt Wiseman MD [address] [place] [address] PCP - General Family Medicine 07/22/24 documented as of this encounter
--- OUTSIDE RECORDS SUMMARY | 2025-04-02 14:10 | XMS_ITS | Encounter Summary ---
Author Organization [facility] Address [address] [place] [address] Care Team Providers Care Research Coordinator Name Role Phone Adeline Guo MD Primary Care Provider +- [phone] Feliciano Evans MD Unavailable Unavailable Yara Harding MD Unavailable [phone] Curt Wiseman MD Primary Care Provider [phone] Encounter Details Date Type Department Care Team (Late st Contact Info) Description 07/19/[address] [facility] Neurology [address] [place] [address] Yara Harding MD [facility] [address] [place] [address] Social History Tobacco Use Types Packs/Day Years [...] Description 05/05/2025 1:00 PM EDT Procedure visit [facility] Neurology [place] 35 [facility] 6 [place] [address] Suman Dudley MD [address] [address] documented as of this encounter Visit Diagnoses Not on filedocumented in this encounter Care Teams Research Coordinator Relationship Specialty Start Date End Date Adeline Guo MD [address] [place] [address] PCP - General Internal Medicine 03/10/20 10/13/24 Curt Wiseman MD [address] [place] [address] Dr Garcia [address] [place] [address] PCP - General Family Medicine 10/14/24 Feliciano Evans MD [address] [place] [address] Referring Provider 10/28/20 Yara Harding MD [address] [place] [address] Neurology 03/20/23 [place] Sethi [address] [place] [address] Neurology Neurology 06/07/22 documented as of this encounter
--- OUTSIDE RECORDS SUMMARY | 2025-04-02 14:10 | XMS_ITS | Encounter Summary ---
Author Organization [facility] Address [address] [place] [address] Care Team Providers Care Crystal Grinder Name Role Phone Adeline Guo MD Primary Care Provider [phone] Feliciano Evans MD Unavailable Unavailable Yara Harding MD Unavailable [phone] Curt Wiseman MD Primary Care Provider [phone] Encounter Details Date Type Department Care Team (Late Contact Info) Description 05/10/2022 Scanned Document [facility] NEUROSURGERY SCAN Neurosurgery, Scan Social History [...] Encounters Date Type Department Care Team ([facility] Contact Info) Description 05/05/2025 1:00 PM EDT Procedure visit [facility] Neurology [address] 6 [place] [phone] Suman Dudley MD 35 [facility] 6 [place] [address] documented as of this encounter Visit Diagnoses Not on filedocumented in this encounter Care Teams Crystal Grinder Relationship Specialty Start Date End Date Adeline Guo MD [address] [place] [address] PCP - General Internal Medicine 03/10/20 10/13/24 Curt Wiseman MD [address] [place] [address] 104 [place] [address] PCP - General Family Medicine 10/14/24 Feliciano Evans MD [address] [place] [address] Referring Provider 10/28/20 Yara Harding MD [address] [place] [address] Neurology 03/20/[address] [place] [address] [address] Neurology Neurology 06/07/22 documented as of this encounter
--- OUTSIDE RECORDS SUMMARY | 2025-04-02 14:10 | XMS_ITS | Clinical Summary ---
Author Organization [facility] Address [address] [place] [address] Phone Care Team Providers Care Electric Trucker Name Role Phone Curt Wiseman MD Primary [...] 90 each 3 4 07/22/20 25 Active amLODIPine (NORVASC) 5 mg tablet Take 1 tablet (5 mg total) by mouth 1 (one) time each day. 90 each 3 5 Active atorvastatin (LIPITOR) 80 mg tablet TAKE 1 TABLET BY MOUTH EVERY DAY 90 tablet 2 5 Active omeprazole (PriLOSEC) [address] capsuleIndication s:Gastroesophagea l reflux disease without esophagitis TAKE 1 CAPSULE BY MOUTH TWICE A DAY 180 capsule 2 5 Active metoprolol succinate (TOPROL-XL) 50 mg 24 hr tablet TAKE 1 TABLET BY MOUTH EVERY DAY WITH 25 MG TABS DO NOT CRUSH CHEW 90 tablet 1 5 Active metoprolol succinate (TOPROL-XL) 25 mg 24 hr tablet Take 1 tablet (25 mg total) by mouth 1 (one) time each day. In addition to 50 mg tab for total of 75 mg 90 tablet 1 5 Active losartan-hydroCHL OROthiazide (HYZAAR) 100-12.5 mg per tablet TAKE 1 TABLET BY MOUTH EVERY DAY 90 tablet 1 5 Active ezetimibe (ZETIA) 10 mg tablet TAKE 1 TABLET BY MOUTH EVERY DAY 90 tablet 1 5 Active Active Problems Problem Noted Date [...] sleep apnea hypopnea, severe 016 Overview (07/08/2024): [facility] Home Polysomnogram: Date 12/08/2015; AHI 8, Unclassified apneas 0; Obstructive apneas 0; Central apneas 0; Mixed apneas 0; hypopneas 20; average oxygen saturation 94% (lowest 87% without saturations <88% for 5% or more of study) [facility] Polysomnogram treatment study. Date 02/28/2018. SE 84 % SM 86 %; spent 16 % of the study in REM. On CPAP @ 8; RDI 0.7 (AHI 0.3), Central apneas 0; Obstructive apneas 0; Mixed apneas 0; hypopneas 1; RERAs 1; and, average oxygen saturation was 93%. For the entire study, PLMs ~20. 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, [facility] V28) 05/21/2014 Lower back pain 05/21/2014 Encounters Date Type Department Care Team Description 02/11/2025 Telephone [facility] 2 [facility] [address] [place] [address] Feliciano Evans MD 01/08/2025 Lab Requisition [facility] - Main Lab [address] [facility] [place] [address] Hussein Nix, [place] Urinary tract infection, site not specified from Last 3 Months Immunizations Name Administration Dates Next Due Influenza trivalent, 0.5mL (Fluad) 65yo and olde r 05/24/2019 Influenza trivalent, 0.5mL, preservative free (Fluarix; FluLaval; Fluzone) ages 6mo and older (Afluria) 3 years and older 07/09/2018,06/04/2014 Curtume Erê SARS-CoV-2 COVID-19, mRNA, LNP-S, preservative free 10/08/2020,09/17/2020 [...] patient OTHER SURGICAL HISTORY 07/12/2019 Right PROCEDURE: [place] ARTHROPLASTY GLENOHUMERAL JOINT TOTAL SHOULDER Medical History [...] dysfunction 05/21/2014 DX:Erectile dysfunction IgA deficiency, 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, [facility]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/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, selective ([facility]) Impaired fasting glucose 06/02/2014 DX:Impa ired fasting glucose Depression 06/02/2014 DX:Depression Anxiety 06/02/2014 DX:Anxiety TBI (traumatic brain injury) ([facility] V24, [facility] V28) 06/02/2014 DX:TBI (traumatic brain inju ry) ([facility]) PTSD (post-traumatic stress disorder) 06/02/2014 DX:PTSD (post-traumatic [...] series) 2012 Colorectal Cancer Screening: Colonoscopy 07/16/2022 Falls Risk Assessment 07/16/2022 Hepatitis C Screening 07/16/2022 Medicare Annual Wellness Visit 07/16/2022 Social Influencers of Health Screening 07/16/2022 Hypertension/CHF/CAD Annual BMP Blood Test 07/17/2022 10/22/2020 Depression Screening 08/07/2024 COVID-19 Vaccine (9 - Pfizer risk 2023- season) 2024 04/12/2024, 05/17/2023, 11/08/2022, Additional history exists Influenza Vaccine (#1) 2025 , 04/07/2024, 06/07/2023, Additional history exists Cholesterol Screening (Lipid Panel) 08/19/2029 08/19/2024, 05/27/2020 DTaP,Tdap,and Td Vaccines (4 - Td or Tdap) 04/01/2034 04/01/2024, 10/13/2022, 05/05/2011 Zoster Vaccines Completed 11/25/2021, 05/07, 02/06/2012 Pneumococcal Vaccine: 50+ Years Completed 12/08/2021, 07/22/2011, 01/07/2002 HIB Vaccines Aged Out No longer eligi [...] EDT Urinary tract infection, site not specified LIPID PANEL Routine 08/19/2024 10:07 AM EST Pure hypercholesterolemia ANNUAL BMP BLOOD TEST Routine 10/22/2020 from Last 3 Months or Most Recently Relevant to Health Maintenance Results * Culture urine (01/08/2025 2:15 PM EDT) Culture, Urine No growth 01/09/2025 1:14 PM EDT [facility] Urine Urine specimen obtained by clean catch procedure / Unknown 01/08/2025 2:15 PM EDT 01/08/2025 6:02 PM EDT us Hussein [facility] MICROBIOLOGY - GENERAL ORD ERABLES Final Result [facility] [address] [place] [address], [place] [phone] * Lipid panel (08/19/2024 10:07 AM EST) [...] - 08/20/2024 3:06 AM EST Performed at: 01 - [facility] [address] [id number] Credit Professional: Annette Meier MD, Phone: [phone] Feliciano Evans MD LAB BLOOD ORDERABLES Final Res ult [facility] 1 * Annual BMP Blood Test (10/22/2020) Pathologist [facility] Annual BMP Blood Test abstracted Historical Provider HEALTH MAINTENANCE Final Result from Last 3 Months or Most Recently Relevant to Health Maintenance Insurance [employer] [address], [place] [address] MEDICA[place] MEDICARE ADVANTAGE [address] [place] [id number] [place] [address] MEDICARE ADVANTAGE [address], [place] [address] Care Teams Electric Trucker Relationship Specialty Start Date End Date Curt Wiseman MD [address] [place] [address] PCP - General Family Medicine 07/22/24
--- OUTSIDE RECORDS SUMMARY | 2025-04-02 14:10 | XMS_ITS | Encounter Summary ---
Author Organization [facility] Address [address] [place] [address] Phone Care Team Providers Care Fishing Rod Trimmer Name Role Phone Adeline Guo MD Primary Care Provider + Encounter Details Date Type Department Care Team (Late st Contact Info) Description 01/22/2024 Ancillary Orders [facility] [address] Alex Garza MD [address] [place] [address], [address] [place] [address] [email or web address] Chronic pain of both knees (Primary Dx) Social History Tobacco Use Types [...] on file documented as of this encounter Results * XR KNEE 4 OR MORE VIEWS (BILATERAL) (01/22/2024 4:55 PM EDT) Anatomical Region Laterality Modality Knee Bilateral, Knee Right, Knee Left Computed Radiography 01/24/2024 11:1 5 AM EDT Impressions 01/24/2024 11:17 AM EDT Right total knee arthroplasty with patellar resurfacing component. Increasing bony proliferative change along the inferior portion of the patellar component. This could reflect a potential pain generator. Small right knee effusion. Left knee tricompartmental osteoarthritis, moderate in the patellofemoral compartment. Narrative 01/24/2024 11:17 AM EDT XR KNEE 4 OR MORE VIEWS (BILATERAL) Referring clinician's provided indication for this examination in [facility]: Pain COMPARISON: XR KNEE 4 OR MORE VIEWS (RIGHT) FINDINGS: RIGHT KNEE: Right total knee arthroplasty with patellar resurfacing component. Hardware is intact and in unchanged alignment. No periprosthetic fracture or lucency. Increasing bony proliferative change along the inferior portion of the patellar resurfacing component. Small joint effusion. LEFT KNEE: Knee joint space narrowing with subchondral sclerosis, cystic change, and marginal osteophytes is moderate in the patellofemoral, mild in the medial, and mild in lateral compartment. No joint effusion. No acute fracture or dislocation. Procedure Note Kendall Caicedo MD - 01/24/2024 XR KNEE 4 OR MORE VIEWS (BILATERAL) Referring clinician's provided indication for this examination in [facility]:Pain COMPARISON: XR KNEE 4 OR MORE VIEWS (RIGHT) FINDINGS: RIGHT KNEE: Right total knee arthroplasty with patellar resurfacingcomponent. Hardware is intact and in unchanged alignment. Noperiprosthetic fracture or lucency. Increasing bony proliferative changealong the inferior portion of the patellar resurfacing component. Smalljoint effusion. LEFT KNEE: Knee joint space narrowing with subchondral sclerosis, cysticchange, and marginal osteophytes is moderate in the patellofemoral, mildin the medial, and mild in lateral compartment. No joint effusion. Noacute fracture or dislocation. IMPRESSION: Right total knee arthroplasty with patellar resurfacing component.Increasing bony proliferative change along the inferior portion of thepatellar component. This could reflect a potential pain generator. Small right knee effusion. Left knee tricompartmental osteoarthritis, moderate in the patellofemoralcompartment. us Alex Garza MD IMG XR LOWER EXTREMITY Final Re sult documented in this encounter Visit Diagnoses Diagnosis Chronic pain of both knees Chronic pain of both knees- Primary documented in this encounter Care Teams Fishing Rod Trimmer Relationship Specialty Start Date End Date Adeline Guo MD [address] [place] [address] PCP - General Pediatrics 10/01/19 documented as of this encounter Additional Source Comments The information contained in this document represents components of the legal health record. It is not the complete legal health record.[facility]
--- OUTSIDE RECORDS SUMMARY | 2025-04-02 14:10 | XMS_ITS | Encounter Summary ---
Author Organization [facility] Address [address] [place] [address] Care Team Providers Care Mason Liner Name Role Phone Adeline Guo MD Primary Care Provider +- [phone] Feliciano Evans MD Unavailable Unavailable Yara Harding MD Unavailable [phone] Curt Wiseman MD Primary Care Provider [phone] Encounter Details Date Type Department Care Team (Late st Contact Info) Description 07/19/[address] [facility] Neurology [address] [phone] Suman Dudley MD [address] [place] [address] Social History Tobacco Use Types Packs/Day Years [...] 05/05/2025 1:00 PM EDT Procedure visit [facility] Neurology [address] [address] Suman Dudley MD [address] [place] [address] documented as of this encounter Visit Diagnoses Not on filedocumented in this encounter Care Teams Mason Liner Relationship Specialty Start Date End Date Adeline Guo MD [address] [place] [address] PCP - General Internal Medicine 03/10/20 10/13/24 Curt Wiseman MD [address] [place] [address] Dr Garcia [place] [address] PCP - General Family Medicine 10/14/24 Feliciano Evans MD [address] [place] [address] Referring Provider 10/28/20 Yara Harding MD [address] [place] [address] Neurology 03/20/[address] [address] Neurology Neurology 06/07/22 documented as of this encounter
--- OUTSIDE RECORDS SUMMARY | 2025-04-02 14:10 | XMS_ITS | Encounter Summary ---
Author Organization [facility] Address [address] [place] [address] Care Team Providers Care Dynamometer Repairer Name Role Phone Adeline Guo MD Primary Care Provider +- [phone] Feliciano Evans MD Unavailable Unavailable Yara Harding MD Unavailable [phone] Curt Wiseman MD Primary Care Provider [phone] Encounter Details Date Type Department Care Team (Late Contact Info) Description 04/08/2020 Scanned Document [address] [phone] Monroe Choi MD [address] [place] [address] Social History Tobacco Use Types Packs/Day Years [...] 1:00 PM EDT Procedure visit [facility] Neurology Jl [address] [facility] [address] [place] [address] Suman Dudley MD [address] [address] documented as of this encounter Visit Diagnoses Not on filedocumented in this encounter Care Teams Dynamometer Repairer Relationship Specialty Start Date End Date Adeline Guo MD [address] [place] [address] PCP - General Internal Medicine 03/10/20 10/13/24 Curt Wiseman MD [address] [place] [address] Dr Garcia [address] [place] [address] PCP - General Family Medicine 10/14/24 Feliciano Evans MD [address] [place] [address] Referring Provider 10/28/20 Yara Harding MD [address] [place] [address] Neurology 03/20/[address] [address] Neurology Neurology 06/07/22 documented as of this encounter
--- OUTSIDE RECORDS SUMMARY | 2025-04-02 14:10 | XMS_ITS | Encounter Summary ---
Author Organization [facility] Address [address] [place] [address] Care Team Providers Care Shift Foreman Name Role Phone Curt Wiseman MD Primary Care Provider [phone] Reason for Visit * Reason Comments Appointment Encounter Details Date Type Department Care Team ([facility] st Contact Info) Description 04/16/2021 Telephone [facility] Neurology [address] [address] Austin Sethi MD 123 [facility] [address] [place] [address] Appointment Social History Tobacco Use Types Packs/Day [...] Phone 05/03/21 3:30 PM Austin Sethi MD [facility] Neurology [address] * Telephone [...] Phone 04/20/21 2:15 PM Austin Sethi MD [facility] Neurology [address] * Telephone [...] on filedocumented in this encounter Care Teams Shift Foreman Relationship Specialty Start Date End Date Curt Wiseman MD [address] [address] PCP - General Family Medicine 02/10/21 documented as of this encounter
--- OUTSIDE RECORDS SUMMARY | 2025-04-02 14:10 | XMS_ITS | Encounter Summary ---
Author Organization [facility] Address [address] [place] [address] Care Team Providers Care Peanut Vendor Name Role Phone Adeline Guo MD Primary Care Provider [phone] Feliciano Evans MD Unavailable Unavailable Yara Harding MD Unavailable [phone] Curt Wiseman MD Primary Care Provider [phone] Encounter Details Date Type Department Care Team (Late st Contact Info) Description 10/30/2020 Scanned Document [facility] Neurology [address] [place] [phone] Angelica Zuluaga, [facility] 35 [facility] [address] [place] [phone] Social History Tobacco Use Types Packs/Day Years [...] Description 05/05/2025 1:00 PM EDT Procedure visit [facility] Neurology [facility]l 35 [facility] 6 [place] [address] Suman Dudley MD [address] [address] documented as of this encounter Visit Diagnoses Not on filedocumented in this encounter Care Teams Peanut Vendor Relationship Specialty Start Date End Date Adeline Guo MD [address] [place] [address] PCP - General Internal Medicine 03/10/20 10/13/24 Curt Wiseman MD [address] [place] [address] Dr Garcia [address] [place] [address] PCP - General Family Medicine 10/14/24 Feliciano Evans MD [address] [place] [address] Referring Provider 10/28/20 Yara Harding MD [address] [place] [address] Neurology 03/20/23 Austin Sethi [address] [place] [address] Neurology Neurology 06/07/22 documented as of this encounter
--- OUTSIDE RECORDS SUMMARY | 2025-04-02 14:10 | XMS_ITS | Encounter Summary ---
Author Organization [facility] Address [address] [place] [address] Care Team Providers Care Remote Recruiter Name Role Phone Adeline Guo MD Primary Care Provider +- [phone] Feliciano Evans MD Unavailable Unavailable Yara Harding MD Unavailable [phone] Curt Wiseman MD Primary Care Provider [phone] Encounter Details Date Type Department Care Team (Late st Contact Info) Description 11/26/2020 [facility] 85 [facility] [address] [place] [address] Mariama Allred, VENUE COORDINATOR [address] [place] [address] Social History Tobacco Use Types [...] Description 05/05/2025 1:00 PM EDT Procedure visit [facility] Neurology [facility]l 35 [facility] [address] [place] [address] Suman Dudley MD [address] [address] documented as of this encounter Visit Diagnoses Not on filedocumented in this encounter Care Teams Remote Recruiter Relationship Specialty Start Date End Date Adeline Guo MD [address] [place] [address] PCP - General Internal Medicine 03/10/20 10/13/24 Curt Wiseman MD [address] [place] [address] Dr Garcia [address] [place] [address] PCP - General Family Medicine 10/14/24 Feliciano Evasn MD [address] [place] [address] Referring Provider 10/28/20 Yara Harding MD [address] [place] [address] Neurology 03/20/23 Austin Sethi [address] [place] [address] Neurology Neurology 06/07/22 documented as of this encounter
--- OUTSIDE RECORDS SUMMARY | 2025-04-02 14:10 | XMS_ITS | Encounter Summary ---
Author Organization [facility] Address [address] [place] [address] Care Team Providers Care Client Operations Manager Name Role Phone Adeline Locke Primary Care Provider Unavailable Reason for Visit * Reason Onset Date Comments Neurology apt with Dr. Kitchen 11/30/2021 Encounter Details Date Type Department Care Team (Late st Contact Info) Description 11/30/2021 Telephone [facility] [address] [place] [address] [phone] Telephone Intake, Staff Neurology apt with Dr. [...] scheduling. A good call back number is [phone]. documented in this encounter Plan of Treatment Not on file documented as of this encounter Visit Diagnoses Not on filedocumented in this encounter Care Teams Client Operations Manager Relationship Specialty Start Date End Date Adeline Locke PCP - General Pediatrics 11/14/17 documented as of this encounter
--- OUTSIDE RECORDS SUMMARY | 2025-04-02 14:10 | XMS_ITS | Encounter Summary ---
Author Organization [facility] Address [address] [place] [address] Care Team Providers Care Regional Truck Driver Name Role Phone Adeline Guo MD Primary Care Provider +- [phone] Feliciano Evans MD Unavailable Unavailable Yara Harding MD Unavailable [phone] Curt Wiseman MD Primary Care Provider [phone] Encounter Details Date Type Department Care Team (Late Contact Info) Description 05/20/2020 Scanned Document [address] [place] [phone] Provider, Generic Social History Tobacco Use [...] Description 05/05/2025 1:00 PM EDT Procedure visit [facility] Neurology [address] [place] [address] Suman Dudley MD 35 [facility] [address] [place] [address] documented as of this encounter Visit Diagnoses Not on filedocumented in this encounter Care Teams Regional Truck Driver Relationship Specialty Start Date End Date Adeline Guo MD [address] [place] [address] PCP - General Internal Medicine 03/10/20 10/13/24 Curt Wiseman MD [address] [place] [address] [address] [place] [address] PCP - General Family Medicine 10/14/24 Feliciano Evans MD [address] [place] [address] Referring Provider 10/28/20 Yara Harding MD [address] [place] [address] Neurology 03/20/[address] [place] [address] [address] Neurology Neurology 06/07/22 documented as of this encounter
--- OUTSIDE RECORDS SUMMARY | 2025-04-02 14:10 | XMS_ITS | Encounter Summary ---
Author Organization [facility] Address [address] [place] [address] Care Team Providers Care Machine Design Teacher Name Role Phone Adeline Guo MD Primary Care Provider +- [phone] Feliciano Evans MD Unavailable Unavailable Yara Hadring MD Unavailable [phone] Curt Wiseman MD Primary Care Provider [phone] Encounter Details Date Type Department Care Team (Late Contact Info) Description 06/01/2022 Scanned Document [facility] Neurosurgery [address] [place] [address] Neurosurgery, Scan Social History Tobacco Use [...] Upcoming Encounters Date Type Department Care Team ([facility] Contact Info) Description 05/05/2025 1:00 PM EDT Procedure visit [facility] Neurology [address] [address] Suman Dudley MD [address] [address] documented as of this encounter Visit Diagnoses Not on filedocumented in this encounter Care Teams Machine Design Teacher Relationship Specialty Start Date End Date Adeline Guo MD [address] [place] [address] PCP - General Internal Medicine 03/10/20 10/13/24 Curt Wiseman MD [address] [place] [address] Dr Garcia [address] [place] [address] PCP - General Family Medicine 10/14/24 Feliciano Evnas MD [address] [place] [address] Referring Provider 10/28/20 Yara Harding MD [address] [place] [address] Neurology 03/20/23 Austin Sethi [address] [place] [address] Neurology Neurology 06/07/22 documented as of this encounter
--- OUTSIDE RECORDS SUMMARY | 2025-04-02 14:10 | XMS_ITS | Encounter Summary ---
Author Organization [facility] Address [address] [place] [address] Phone Care Team Providers Care Tool And Die Assembler Name Role Phone Adeline Guo MD Primary Care Provider + Encounter Details Date Type Department Care Team (Late st Contact Info) Description 01/22/2024 Ancillary Orders [facility]'[address] [address] Alex Graza MD [address] [place] [address], [address] [place] [address] [email or web address] Chronic pain of both knees (Primary Dx) [...] as of this encounter Visit Diagnoses Diagnosis Chronic pain of both knees- Primary documented in this encounter Care Teams Tool And Die Assembler Relationship Specialty Start Date End Date Adeline Guo MD [address] [place] [address] PCP - General Pediatrics 10/01/19 documented as of this encounter Additional Source Comments The information contained in this document represents components of the legal health record. It is not the complete legal health record.[facility]
--- OUTSIDE RECORDS SUMMARY | 2025-04-02 14:10 | XMS_ITS | Patient Health Record ---
Author Organization [facility] Address [address] [address] Care Team Providers Care Stock Parts Inspector Name Role Phone BrantAdeline Primary Care Provider Unavaila Pricila Herman Unavailable [phone] Reason For Referral No Information Medications Medication [...] Status W/U Status Risk Notes Problem Vomiting (285286583) Vomiting (787.03) Active confirmed Problem Diarrhea (06624746) Diarrhea (787.91) Active confirmed Problem Generalized abdominal pain (339948046) ABDMNAL PAIN GENERALIZED (789.07) Active confirmed Problem Gastroesophageal reflux disease (disorder) (701358457) GERD [Gastroesophage al reflux disease] (530.81) Active confirmed Problem Abnormal weight loss (408790517) Abnormal loss of weight (783.21) Active confirmed Problem Slow transit constipation (93252794) Slow transit constipation (K59.01) Active confirmed Problem Anaya's esophagus (130077871) Barretts esophagus without dysplasia (K22.70) Active confirmed Problem Gastroesophageal reflux disease (disorder) (878078000) Chronic GERD (K21.9) Active confirmed Problem Bleeding per rectum (33924606) Bleeding per rectum (K62.5) Active confirmed Problem Diarrhea (22800589) Diarrhea, unspecified type (R19.7) Active confirmed Problem Vomiting (367642127) Projectile vomiting with nausea (R11.12) Active confirmed Problem Cyclical vomiting syndrome (52178652) Intractable cyclical vomiting with nausea (G43.A1) Active confirmed Plan Of Treatment Pending Test Test Name Order Date *[facility] Exam, Routine 03/31/2015 MRI:ENTEROGRAPHY 03/31/2015 Gastric emptying study 03/31/2015 CT Abdomen Pelvis with contrast 08/05/20 16 Insurance Providers Payer Name Payer Address Payer Phone Subscriber Number Group Number Insured Name Patient Relationship to Insured Coverage Start Date Coverage End Date Medicare B [facility] Shria daniels [facility] [address] NATACHA Mason [phone] [id number] THALIA DANIELSON Self - patient is the insured Medicaid OF [facility] [address] [place] [address] [phone] [id number] THALIA DANIELSON Self - patient is the insured Medical (General) History Medical History History ICD Code Hypertension Coronary artery disease s/p PCI Depression/ anxiety Hyperlipidemia Surgical History Surgery Date(Month/Year) cardiac stents
--- OUTSIDE RECORDS SUMMARY | 2025-04-02 14:10 | XMS_ITS | Clinical Summary ---
Author Organization [facility] Address [address] [place] [address] Care Team Providers Care Jig And Fixture Builder Apprentice Name Role Phone Feliciano Evans MD Unavailable Unavailable Yara Harding MD Unavailable [phone] Curt Wiseman MD Primary Care Provider [phone] Allergies Active Allergy Reactions Criticality Noted Date [...] COUGH, WHEEZING OR SHORTNESS OF BREATH. Active amLODIPine (NORVASC) 10 MG tablet amlodipine [...] around the clock. 270 tablet 1 Active ondansetron (ZOFRAN) 4 MG tablet Take 1 tablet (4 mg total) by mouth 3 times daily (every 8 hours) as needed for nausea or vomiting. Active Probiotic Product (Align) 4 MG Cap daily. Active lactulose (ENULOSE) 10 gm/15 mL solution TAKE 10 20 ML BY MOUTH TWICE A DAY NEEDED 1 Active Aspirin 81 MG Cap daily. 1 Active clotrimazole-be tamethasone (LOTRISONE) cream as needed. 1 Active lamoTRIgine (LaMICtal) 25 MG tablet Take 1 tablet (25 mg total) by mouth daily. 1 Active nystatin (MYCOSTATIN) ointment As needed 1 Active LORazepam (ATIVAN) 1 MG tablet Take 1 tablet (1 mg total) by mouth nightly. Takes half a tablet daily as needed 1 Active cetirizine (ZyrTEC) 10 MG tablet TAKE 1 TABLET BY MOUTH DAILY NEEDED FOR ALLERGY SYMPTOMS 3 Active primidone (MYSOLINE) 50 MG tabletIndicatio ns:Essential tremor TAKE 3 TABLETS (150 MG TOTAL) BY MOUTH 3 (THREE) TIMES A DAY. 810 tablet 1 4 Active gabapentin (NEURONTIN) 400 MG capsule TAKE 1 [...] total) by mouth. As needed 4 Active lidocaine (XYLOCAINE) 5 % ointment Apply topically 3 (three) times a day as needed. 4 Active diphenhydrAMINE -acetaminophen (TYLENOL PM) 25-500 [...] By: KRISHNA FAGAN Comment: Entered automatically through [facility] Problem List documentation program Feb 20, 2024 Entered By: REJI BERNARD Comment: Agent [place] Registry Exam 02/20/24 Feb 20, 2024 Entered By: REJI BERNARD Comment: Agent [place] Exposure, [facility] 1969- Generalized abdominal pain 10/14/2024 Melena [...] deep brain stimulator placement 02/04 Overview (09/24/2021): [employer] [facility], Linear lead, right chest Postoperative visit 12/01/2020 Essential tremor 11/04/2020 Right groin pain 03/25/2019 Memory loss or [...] by urology 02/22 [place] Resolved Problems Problem Noted Date Diagnosed Date Resolved Date Benign essential tremor 04/07/2020 06/2 10/2024 Encounters Date Type Department Care Team Description 01/27/2025 1:00 PM EDT Procedure visit [facility] Neurology [address] [phone] Suman Dudley MD Essential tremor (Primary Dx); Status post deep brain stimulator placement 01/27/2025 Travel from Last 3 Months Family History [...] Sign Reading Time Taken Comments Blood Pressure 132/80 01/27/2025 1:09 PM EDT Pulse 65 01/27/2025 1:09 PM EDT Temperature 36.7 C (98 F) 05/30/2022 3:26 PM EDT Respiratory Rate 16 05/30/2022 3:26 PM EDT Oxygen Saturation 96% 02/21/2022 2:50 PM EDT Inhaled Oxygen Concentration - - Weight 102 kg (225 lb) 01/27/2025 1:09 PM EDT Height 185.4 cm (6' 1 ) 01/27/2025 1:09 PM EDT Body Mass Index 29.69 01/27/2025 1:09 PM EDT Plan of Treatment Upcoming Encounters Date Type Department Care Team (Late st Contact Info) Description 05/05/2025 1:00 PM EDT Procedure visit [facility] Neurology [place] [address] [facility] [address] [place] [phone] Suman Dudley MD 35 [facility] [address] [place] [address] Health Maintenance Due Date Last Done Comments Advance Care Planning 1950 Hepatitis C Virus Screening 1950 DTaP/Tdap/Td Vaccines [...] this topic Medical Devices Implanted Type Area Biometrics Analyst Device Identifier Shelf Expiration Date Model / Serial / Lot [id number] Extension Neurostimulator 60cm 1.3-3.8mm 1.5mm Std Qdpl Dist - [id number] Implanted:Qty: 1 on 11/25/2020 by Monroe Choi MD at [facility] Cerebral [employer] MINIMALLY INVASIVE T 09/10/2023 [id number] / [id number] / [id number] Extension Neurostimulator 60cm 1.3-3.8mm 1.5mm Std Qdpl Dist - [id number] Implanted:Qty: 1 on 11/25/2020 by Monroe Choi MD at [facility] Cerebral [employer] MINIMALLY INVASIVE T 01/31/2024 [id number] / [id number] / [id number] Screw Bone Mdfc 5mm 1.5mm Self Drill Htorq Xdr Grn Chano - [id number] Implanted:Qty: 4 on 11/04/2020 by Monroe Choi MD at [facility] Maxillofacial Cranial [employer] [id number] / / [id number] Lead Neurostimulator Strg Cylinder Firm Deep Brn Stm - [id number] Implanted:Qty: 1 on 11/04/2020 by Monroe Choi MD at [facility] Stimulator Right: Brain [employer] MINIMALLY INVASIVE T 05/25/2024 [id number]-40 / / [id number] 3387s-40 Lead Neurostimulator Strg Cylinder Firm Deep Brn Stm - [id number] Implanted:Qty: 1 on 11/04/2020 by Monroe Choi MD at [facility] Stimulator [employer] MINIMALLY INVASIVE T 3387S-40 / / [id number] Neurostimulator Implantable 68mm X 51mm Percept 2 Chnl 61g - [id number] Implanted:Qty: 1 on 11/25/2020 by Monroe Choi MD at [facility] Stimulator [employer] MINIMALLY INVASIVE T 08/20/2022 [id number] / [id number] / [id number] Senior Supply Chain Analyst Neurostimulator Patient Percept Pc Device - [id number] Implanted:Qty: 1 on 11/25/2020 by Monroe Choi MD at [facility] Stimulator [employer] MINIMALLY INVASIVE T [id number] / / [id number] Kit Stimulator Tunnel Deep Brn Stm - [id number] Implanted:Qty: 1 on 11/25/2020 by Monroe Choi MD at [facility] Stimulator [employer] MINIMALLY INVASIVE T [id number] / / [id number] Filler Bone Void 10cc 20cc Calcium Slf Stimulan Rpd Cure Kit - [id number] Implanted:Qty: 1 on 11/04/2020 by Monroe Choi MD at [facility] Void Filler N/A: Brain [employer] - A BTG INT 12/04/2022 620-010 / / [id number] 620-010 Filler Bone Void 10cc 20cc Calcium Slf Stimulan Rpd Cure Kit - [id number] Implanted:Qty: 1 on 11/25/2020 by Monroe Choi MD at [facility] Void Filler Right: Chest [employer] - A BTG INT 12/04/2022 620-010 / / [id number] Description:mixed with 1 gm vancomycin powder and 1.2gm tobramycin powder Explanted Type Area Biometrics Analyst Device Identifier Shelf Expiration Date Model / Serial / Lot 70-It-Ar5p Electrode Neurostimulator Star Hedy Microtargetting Dzap - [id number] Explanted:Qty: 1 on 11/04/2020 by Monroe Choi MD at [facility] Stimulator Brain [employer] 10/15/2021 70-IT-AR 5P / / [id number] 66-It-Ar4p Electrode Neurostimulator Microtargeting Unilateral - [id number] Explanted:Qty: 1 on 11/04/2020 by Monroe Choi MD at [facility] Stimulator Brain [employer] 02/25/2023 66-IT-AR 4P / / [id number] 1549-68 Cable Neurostimulator Twstlk Scrn Sterl Lf - [id number] Explanted:Qty: 1 on 11/04/2020 by Monroe Choi MD at [facility] Stimulator Right: Brain [employer] MINIMALLY INVASIVE T 09/03/2024 3550-68 / / [id number] Description:NOT AN IMPLANT Insurance [facility] Advance Directives * Full Code (Latest Code Status on File) Date Activated Date Inactivated Comments 11/25/2020 8:30 AM * Full Code Date Activated Date Inactivated Comments 11/04/2020 4:31 PM 11/25/2020 7:56 AM Care Teams Jig And Fixture Builder Apprentice Relationship Specialty Start Date End Date Curt Wiseman MD [address] [place] [address] Dr Dela CruzkeMEGAN [address] PCP - General Family Medicine 10/14/24 Feliciano Evans MD Referring Provider 10/28/20 Yara Harding MD Neurology 03/20/23 Austin Sethi [address] [place] [address] Neurology Neurology 06/07/22
--- OUTSIDE RECORDS SUMMARY | 2025-04-02 14:10 | XMS_ITS | Encounter Summary ---
Author Organization [facility] Address [address] [place] [address] Care Team Providers Care Medical Front Desk Coordinator Name Role Phone Adeline Guo MD Primary Care Provider [phone] Feliciano Evans MD Unavailable Unavailable Yara Harding MD Unavailable [phone] Curt Wiseman MD Primary Care Provider [phone] Encounter Details Date Type Department Care Team (Late st Contact Info) Description 05/20/2021 Scanned Document [facility] Neurosurgery [place] [address] [facility] [address] [place] [phone] Monroe Choi MD [address] [facility] [place] [address] [place] [address] Social History Tobacco Use Types Packs/Day Years [...] Description 05/05/2025 1:00 PM EDT Procedure visit [facility] Neurology [place] [address] [facility] [address] [place] [address] Suman Dudley MD [address] [address] documented as of this encounter Visit Diagnoses Not on filedocumented in this encounter Care Teams Medical Front Desk Coordinator Relationship Specialty Start Date End Date Adeline Guo MD [address] [place] [address] PCP - General Internal Medicine 03/10/20 10/13/24 Curt Wiseman MD [address] [place] [address] Dr Garcia [address] [place] [address] PCP - General Family Medicine 10/14/24 Feliciano Evans MD [address] [place] [address] Referring Provider 10/28/20 Yara Harding MD [address] [place] [address] Neurology 03/20/23 Austin Sethi [address] [place] [address] Neurology Neurology 06/07/22 documented as of this encounter
== END 2025-04-02 15:44 | disposition home or self-care (01) ==
LOC: HO.HMCFM 13:19
PROVIDERS: PCP Family Medicine; Visit Provider Nurse Practitioner Family
DX: Z00.00 Encounter for general adult medical examination without abnormal findings (principal); I10 Essential (primary) hypertension; E66.9 Obesity, unspecified; Z68.30 Body mass index [BMI] 30.0-30.9, adult; E78.2 Mixed hyperlipidemia; I25.10 Atherosclerotic heart disease of native coronary artery without angina pectoris; K21.9 Gastro-esophageal reflux disease without esophagitis; N40.0 Benign prostatic hyperplasia without lower urinary tract symptoms; Z71.89 Other specified counseling; Z78.9 Other specified health status; H61.22 Impacted cerumen, left ear

== ENCOUNTER 2025-04-02 13:18 | Outpatient (REF) | payer MEDICARE, SELFPAY ==
--- OUTSIDE RECORDS SUMMARY | 2025-04-02 15:20 | XMS_ITS | Encounter Summary ---
Author Organization [employer] Address [address] [facility] 7t [place] [address] Care Team Providers Care Levi Maker Name Role Phone Unavailable Primary Care Provider Unavailabl e Reason for Visit * Reason Onset Date Comments appt temp crown fell off/recement 03/19/2024 Encounter Details Date Type Department Care Team ([facility] st Contact Info) Description 03/19/2024 Telephone [facility] CHC ADULT DENTAL [address] [place] [address] Rocío Castillo DDS appt temp crown fell off/recement Social History [...] fell off. Ok to schedule per Megan frontload driver. Informed frontload driver via phone that [employer] is not an insurance we have access [...] tomorrow at 1:30. They would like to parts picker in the morning to have it ready to take prior to treatment. The pharmacy on file is the one to use. DR documented in this encounter Plan of Treatment Upcoming Encounters Date Type Department Care Team (Late st Contact Info) Description 04/10/2025 1:30 PM EDT Office Visit [facility] ADULT DENTAL [address] [place] [address] Andre Bang 505 [place] [address] 08/27/2025 1:00 PM EST Office Visit [facility] ADULT DENTAL [address] [place] [address] Corinne Pedroza documented as of this encounter Visit Diagnoses Not on filedocumented in this encounter
--- OUTSIDE RECORDS SUMMARY | 2025-04-02 15:20 | XMS_ITS | Clinical Summary ---
Author Organization [employer] Address [address] [facility] 7t [place] [address] Care Team Providers Care Manager Front Office Name Role Phone Unavailable Primary Care Provider Unavailabl e Allergies No known active allergies Medications chlorhexidine (Peridex) 0.12 % solutionIndicati ons:History of tooth extraction, unspecified edentulism class Fill irrigation syringe and irrigate extraction socket following meals. Spit, do not swallow. 473 mL 3 Active amoxicillin (Amoxil) 500 MG capsule Take 4 capsules one hour before the dental appointment. 12 capsule 3 Active Additional Information Patient not taking.Reported on 02/24/2025 acetaminophen (Tylenol) 325 MG tablet Take 975 [...] the dental appointment. 16 capsule 5 Active Additional Information Patient not taking.Reported on 02/24/2025 amoxicillin (Amoxil) 500 MG capsule Please take 4 CAPS of 500 MG one hour before your next dental appointment. 4 capsule 5 Active Additional Information Patient not taking.Reported on 02/24/2025 Active Problems Problem Noted Date Diagnosed Date Gastroesophageal reflux disease 02/20/2025 Traumatic brain injury with loss of consciousnes s 02/20/2025 Encounters Date Type Department Care Team Description 03/11/2025 Telephone [facility] ADULT DENTAL [address] [place] [address] Alex Burns DMD returning call placed yesterday 03/10 dental 03/10/2025 Telephone [facility] ADULT DENTAL [address] [place] [address] Andre Bang 02/26/2025 2:15 PM EDT Office Visit [facility] ADULT DENTAL [address] [place] [address] Alex BurnsJANAK 02/24/2025 3:00 PM EDT Office Visit [facility] ADULT DENTAL [address] [place] [address] BetiCoryio 02/20/2025 1:00 PM EDT Office Visit [facility] ADULT DENTAL [address] [place] [address] Corinne Pedroza Dental calculus (Primary Dx) from Last 3 Months Social History Tobacco Use Types Packs/Day Years Used Date Smoking Tobacco: Never Passive Smoke Exposure: Never Smokeless Tobacco: Never Tobacco Cessation:Counseling Given: Not Answered Alcohol Use Standard Drinks/Week Comments Defer 0 [...] Sign Reading Time Taken Comments Blood Pressure 122/82 02/24/2025 3:20 PM EDT Pulse 60 08/22/2023 2:01 PM EST Temperature - - Respiratory Rate - - Oxygen Saturation - - Inhaled Oxygen Concentration - - Weight - - Height - - Body Mass Index - - Plan of Treatment Upcoming Encounters Date Type Department Care Team (Late st Contact Info) Description 04/10/2025 1:30 PM EDT Office Visit [facility] ADULT DENTAL [address] [place] [address] Jolie Bangricio [address] [place] [address] 08/27/2025 1:00 PM EST Office Visit [facility] ADULT DENTAL [address] [place] [address] Corinne Pedroza Health Maintenance Due Date Last [...] series) 2012 Dental Oral Exam 02/21/2024 08/22/2023 COVID-19 Vaccine (9 - Pfizer risk season) 2024 04/12/2024, 05/17/2023, 11/08/2022, Additional history exists Influenza Vaccine (#1) 2025 , 04/07/2024, 06/07/2023, Additional history exists Dental Prophylaxis 08/24/2025 02/20/2025, 08/22/2023 Dental X-Ray: Bitewings 02/21/2026 02/21/20, 11/17/2023, 08/22/2023 Tobacco Screening 02/26/2026 02/26/2025 Dental X-Ray: Full Mouth 10/05/2026 10/04/2023 DTaP/Tdap/Td [...] OTHER THAN REQUESTING DENTIST OR PHYSICIAN Routine 02/26/2025 2:15 PM EDT 29 D RESIN-BASED COMPOSITE - 1 SURF, POSTERIOR Routine 02/24/2025 3:00 PM EDT INTRAORAL - PERIAPICAL EACH ADDITIONAL RADIOGRAPHIC IMAGE Routine 02/20/2025 1:00 PM EDT INTRAORAL - PERIAPICAL EACH ADDITIONAL RADIOGRAPHIC IMAGE Routine 02/20/2025 1:00 PM EDT INTRAORAL - PERIAPICAL FIRST RADIOGRAPHIC IMAGE Routine 02/20/2025 1:00 PM EDT BITEWINGS - 4 RADIOGRAPHIC IMAGES Routine 02/20/2025 1:00 PM EDT ORAL HYGIENE INSTRUCTIONS Routine 2024 1:00 PM EDT PROPHYLAXIS - ADULT Routine 02/20/2025 1 :00 PM EDT PANORAMIC RADIOGRAPHIC IMAGE Routine 10/04/2023 1:00 PM EST PERIODIC ORAL EVALUATION - ESTABLISHED PATIENT Routine 08/22/2023 2:00 PM EST from Last 3 Months or Most Recently Relevant to Health Maintenance Insurance DENTAL - [facility]
--- OUTSIDE RECORDS SUMMARY | 2025-04-02 15:20 | XMS_ITS | Encounter Summary ---
Author Organization [facility] [facility] Address [address] [place] [address] 7t [place] [address] Care Team Providers Care Teacher Resource Name Role Phone Unavailable Primary Care Provider Unavailabl e Encounter Details Date Type Department Care Team (Latest Contact Info) Description 04/13/2022 Abstract [facility] CONVERSIONS Dental, Provider, DDS Social History [...] 1:30 PM EDT Office Visit [facility] ADULT DENTAL [address] [place] [address] Andre Bang [address] [place] [address] 08/27/2025 1:00 PM EST Office Visit [facility] ADULT DENTAL [address] [place] [address] Corinne Pedroza documented as of this encounter Visit Diagnoses Not on filedocumented in this encounter
--- OUTSIDE RECORDS SUMMARY | 2025-04-02 15:20 | XMS_ITS | Encounter Summary ---
Author Organization [facility] Address [address] [place] [address] 7t [place] [address] Care Team Providers Care Jacquard Loom Carpet Weaver Name Role Phone Unavailable Primary Care Provider Unavailabl e Reason for Visit * Reason Onset Date Comments medication pre med 07/17/2023 Encounter Details Date Type Department Care Team (Late st Contact Info) Description 07/17/2023 Telephone [facility] ADULT DENTAL [address] [place] [address] Art Poe DDS [address] [place] [address] medication pre med Social History Tobacco Use [...] Description 04/10/2025 1:30 PM EDT Office Visit [facility] CHC ADULT DENTAL [address] [place], [place] [phone] Andre Bang [address] [place], [place] [phone] 08/27/2025 1:00 PM EST Office Visit [facility] ADULT DENTAL [address] [place] [address] Corinne Pedroza documented as of this encounter Visit Diagnoses Not on filedocumented in this encounter
--- OUTSIDE RECORDS SUMMARY | 2025-04-02 15:20 | XMS_ITS | Encounter Summary ---
Author Organization [employer] Address [address] [facility] [address] 7t [place] [address] Care Team Providers Care Morphologist Name Role Phone Unavailable Primary Care Provider Unavailabl e Reason for Visit * Reason Onset Date Comments instructions 12/28/2022 Dental Pain 12/28/2022 Encounter Details Date Type Department Care Team ([facility] st Contact Info) Description 12/28/2022 Telephone [facility] ADULT DENTAL [address] [place] [address] Grant Alex, JANAK [address] [place] [address] instructions; Dental Pain Social History Tobacco Use [...] 1:30 PM EDT Office Visit [facility] ADULT DENTAL [address] [place] [address] Andre Bang [address] [place] [address] 08/27/2025 1:00 PM EST Office Visit [facility] ADULT DENTAL [address] [place] [address] Corinne Pedroza documented as of this encounter Visit Diagnoses Not on filedocumented in this encounter
--- OUTSIDE RECORDS SUMMARY | 2025-04-02 15:20 | XMS_ITS | Encounter Summary ---
Author Organization [facility] Address [address] [place] [address] 7t [place] [address] Care Team Providers Care Chemical Plant Operator Supervisor Name Role Phone Unavailable Primary Care Provider Unavailabl e Encounter Details Date Type Department Care Team (Latest Contact Info) Description 10/13/2021 Abstract [facility] CONVERSIONS Dental, Provider, DDS Social [...] 1:30 PM EDT Office Visit [facility] ADULT DENTAL [address] [place] [address] Andre Bang [address] [place] [address] 08/27/2025 1:00 PM EST Office Visit [facility] ADULT DENTAL [address] [place] [address] Corinne Pedroza documented as of this encounter Visit Diagnoses Not on filedocumented in this encounter
--- OUTSIDE RECORDS SUMMARY | 2025-04-02 15:20 | XMS_ITS | Encounter Summary ---
Author Organization [facility] [facility] Address [address] [place] [address] 7t [place] [address] Care Team Providers Care Supplier Specialist Name Role Phone Unavailable Primary Care Provider Unavailabl e Reason for Visit * Reason Onset Date Comments Med Refill 10/08/2024 Encounter Details Date Type Department Care Team (Late st Contact Info) Description 10/08/2024 Refill [facility] ADULT DENTAL [address] [place] [address] Rocío Castillo DDS Social History Tobacco Use Types Packs/Day [...] Description 04/10/2025 1:30 PM EDT Office Visit [facility] ADULT DENTAL [address] [place] [address] Andre Bang [address] [place] [address] 08/27/2025 1:00 PM EST Office Visit [facility] ADULT DENTAL [address] [place] [address] Corinne Pedroza documented as of this encounter Visit Diagnoses Not on filedocumented in this encounter
--- OUTSIDE RECORDS SUMMARY | 2025-04-02 15:20 | XMS_ITS | Encounter Summary ---
Author Organization [facility] Address [address] [place] [address] 7t [place] [address] Care Team Providers Care Metal Sander And Finisher Name Role Phone Unavailable Primary Care Provider Unavailabl e Encounter Details Date Type Department Care Team (Late st Contact Info) Description 03/18/2024 Telephone [facility] ADULT DENTAL [address] [place], [place] [phone] Dipti Rosenthal [address] [place] [address] Social History Tobacco Use Types Packs/Day Years [...] 1:30 PM EDT Office Visit [facility] ADULT DENTAL [address] [place] [address] Andre Bang [address] [place] [address] 08/27/2025 1:00 PM EST Office Visit [facility] ADULT DENTAL [address] [place] [address] Corinne Pedroza documented as of this encounter Visit Diagnoses Not on filedocumented in this encounter
--- OUTSIDE RECORDS SUMMARY | 2025-04-02 15:20 | XMS_ITS | Encounter Summary ---
Author Organization [facility] Address [address] [place] [address] 7t [place] [address] Care Team Providers Care Datapower Consultant Name Role Phone Unavailable Primary Care Provider Unavailabl e Reason for Visit * Reason Onset Date Comments returning call placed yesterday 03/10 dental 12/2024 Encounter Details Date Type Department Care Team (Late Contact Info) Description 03/11/2025 Telephone [facility] ADULT DENTAL [address] [place] [address] Alex Burns, JANAK [address] [place] [address] returning call placed yesterday 03/10 dental Social [...] [facility] [address] [place] [address] Andre Bang [address] [place] [address] 08/27/2025 1:00 PM EST Office Visit [facility] ADULT DENTAL [address] [place] [address] Corinne Pedroza documented as of this encounter Visit Diagnoses Not on filedocumented in this encounter
[2025-04-02 18:43] LABS: Cholesterol 133 mg/dL (<200); HDL Cholesterol 39 mg/dL (>40); Triglycerides 225 mg/dL (<150)
== END 2025-04-02 13:19 | disposition home or self-care (01) ==
LOC: HO.WFDLDS 13:18
PROVIDERS: PCP Family Medicine; Visit Provider Nurse Practitioner Family
DX: Z00.00 Encounter for general adult medical examination without abnormal findings (principal); I10 Essential (primary) hypertension; K21.9 Gastro-esophageal reflux disease without esophagitis; N40.0 Benign prostatic hyperplasia without lower urinary tract symptoms; I25.10 Atherosclerotic heart disease of native coronary artery without angina pectoris; E78.2 Mixed hyperlipidemia; H61.22 Impacted cerumen, left ear; E66.9 Obesity, unspecified; Z78.9 Other specified health status; Z71.89 Other specified counseling; Z68.30 Body mass index [BMI] 30.0-30.9, adult; Z12.5 Encounter for screening for malignant neoplasm of prostate; Z79.899 Other long term (current) drug therapy
CPT/HCPCS: 36415; 69209; 80061; 83036; 84153; 93005; 99212

== ENCOUNTER 2025-04-17 06:18 | Outpatient (REF) | payer MEDICARE, SELFPAY ==
--- OUTSIDE RECORDS SUMMARY | 2025-04-11 14:00 | XMS_ITS | Encounter Summary ---
Author Organization [facility] Address [address] [place] [address] 7 [place] [address] Care Team Providers Care Elementary Education Tutor Name Role Phone Unavailable Primary Care Provider Unavailabl e Reason for Visit * Reason Comments Consult Encounter Details Date Type Department Care Team ([facility] st Contact Info) Description 04/11/2025 2:00 PM EDT Office Visit [facility] ADULT DENTAL [address] [place] [address] Andre Bang [address] [place] [address] Social History Tobacco Use Types Packs/Day Years [...] AM EDT documented as of this encounter Progress Notes * Andre Bang - 04/11/2025 2:00 PM EDT Dental procedures in this visit [id number] - RE-EVAL - POST-OP OFFICE VISIT (Completed) Service provider: Andre Bang Billing provider: Rozina Solano DDS Patient ID: Bj Wolf is a 74 y.o. male. Time Out: Date: 04/11/2025 Location: [facility] Tooth: #31 Procedure: Implant [place] Verified the above with patient, front desk assistant, and provider. Confirmed via patient's chart, intraorally and by radiographs. Press Catcher: not applicable Doctor's Note: Pt came to dental office for an evaluation on implant crown orthodox for implant on #31. #31 implant healing well, all surrounding tissues WNL. #31 requires open tray for impression. Pt was released in stable conditions with all questions answered. Dr. Bang * Rozina Solano DDS - 04/11/2025 2:00 PM EDT I have reviewed the documentation made by the rendering provider, Andre Bang DDS, and approve their chart entries for this visit. CATHERINE Bazan DDS documented in this encounter Plan of Treatment Upcoming Encounters Date Type Department Care Team (Late st Contact Info) Description 08/27/2025 1:00 PM EST Office Visit [facility] ADULT D[facility]AL [address] [place] [address] Corinne Pedroza documented as of this encounter Procedures Procedure Name Priority Date/Time Associated Diagnosis Comments RE-EVAL - POST-OP OFFICE VISIT Routine 04/11/2025 2:00 PM EDT documented in this encounter Visit Diagnoses Not on filedocumented in this encounter
--- NOTE | ~2025-04-17 | FL_ITS ---
EXAMINATION: FL GUIDANCE ONLY HISTORY: M16.12 - Unilateral primary osteoarthritis, left hip COMPARISON: None available. TECHNIQUE: Fluoroscopy time: Less than 1 minute. Cumulative Dose: 0.710 mGy. DAP: 0.50364 mGym2 Images: 2. FINDINGS: Fluoroscopic spot films of the left hip demonstrate a needle in place, and contrast material in the joint space. A needle and contrast are also seen in the region of the trochanteric bursa. FL/FL guidance in treatment room IMPRESSION: Fluoroscopy during procedure. Please see procedure report for additional information. Electronically signed by: Celso Valdivia MD 04/17/2025 12:18 PM EDT
--- OUTSIDE RECORDS SUMMARY | 2025-04-17 06:21 | XMS_ITS | Encounter Summary ---
Author Organization [facility] Address [address] [place] [address] Phone Care Team Providers Care Manager Medical Name Role Phone Adeline Guo MD Primary Care Provider + Encounter Details Date Type Department Care Team (Late st Contact Info) Description 01/22/2024 Ancillary Orders [facility] [address] Alex Garza MD [address] [place] [address], [address] [place] [address] [email or web address] Chronic pain of both knees (Primary [...] Primary documented in this encounter Care Teams Manager Medical Relationship Specialty Start Date End Date Adeline Guo MD [address] [place] [address] PCP - General Pediatrics 10/01/19 documented as of this encounter Additional Source Comments The information contained in this document represents components of the legal health record. It is not the complete legal health record.[facility]
--- OUTSIDE RECORDS SUMMARY | 2025-04-17 06:21 | XMS_ITS | Encounter Summary ---
Author Organization [facility] Address [address] [place] [address] Care Team Providers Care Project Management Manager Name Role Phone Adeline [place] Primary Care Provider Unavailable Reason for Visit * Reason Onset Date Comments Neurology apt with Dr. Kitchen 11/30/2021 Encounter Details Date Type Department Care Team (Late st Contact Info) Description 11/30/2021 Telephone [facility] [address] [place] [address] [phone] Telephone Intake, Staff Neurology apt with Dr. [...] scheduling. A good call back number is [phone]. documented in this encounter Plan of Treatment Not on file documented as of this encounter Visit Diagnoses Not on filedocumented in this encounter Care Teams Project Management Manager Relationship Specialty Start Date End Date Adeline Locke PCP - General Pediatrics 11/14/17 documented as of this encounter
--- OUTSIDE RECORDS SUMMARY | 2025-04-17 06:21 | XMS_ITS | Encounter Summary ---
Author Organization [facility] Address [address] [place] [address] Phone Care Team Providers Care Rag Room Supervisor Name Role Phone Adeline Guo MD Primary Care Provider + Encounter Details Date Type Department Care Team (Late st Contact Info) Description 01/22/2024 Ancillary Orders [facility]'[address] [address] Alex Garza MD [address] [place] [address], [address] [place] [address] [email or web address] Chronic pain of both knees (Primary Dx) [...] clinician's provided indication for this examination in [facility]: Pain COMPARISON: XR KNEE 4 OR [...] clinician's provided indication for this examination in [facility]:Pain COMPARISON: XR KNEE 4 OR MORE [...] Primary documented in this encounter Care Teams Rag Room Supervisor Relationship Specialty Start Date End Date Adeline Guo MD [address] [place] [address] PCP - General Pediatrics 10/01/19 documented as of this encounter Additional Source Comments The information contained in this document represents components of the legal health record. It is not the complete legal health record.[facility]
--- OUTSIDE RECORDS SUMMARY | 2025-04-17 06:21 | XMS_ITS | Clinical Summary ---
Author Organization [facility] Address [address] [address] Phone Care Team Providers Care Letter Of Credit Document Examiner Name Role Phone Adeline Guo MD [...] (2 of 2 - PCV) 07/22/2012 07/22/2011 INFLUENZA VACCINE (#1) 2025 , 04/07/2020, 05/24/2019, Additional history exists COVID-19 VACCINE (3 - 2024- season) 2025 10/08/2020, 09/17/2020 RSV VACCINE (1 - 1-dose [...] REPLACEMENT MEDICARE REPLACEMENT MEDICARE REPLACEMENT Care Teams Letter Of Credit Document Examiner Relationship Specialty Start Date End Date Adeline Guo MD [address] [place] [address] PCP - General Pediatrics 10/01/19 Additional Source Comments The information contained in this document represents components of the legal health record. It is not the complete legal health record.[facility]
--- OUTSIDE RECORDS SUMMARY | 2025-04-17 06:21 | XMS_ITS | Encounter Summary ---
Author Organization [facility] Address [address] [place] [address] Care Team Providers Care Industrial Engineering Director Name Role Phone Adeline Guo MD Primary Care Provider [phone]- [phone] Feliciano Evans MD Unavailable Unavailable Yara Harding MD Unavailable [phone] Curt Wiseman MD Primary Care Provider [phone] Encounter Details Date Type Department Care Team (Late st Contact Info) Description 07/19/2024 Telephone [facility] Neurology [address] [phone] Suman Dudley MD [address] [place] [address] Social History Tobacco Use Types Packs/Day Years [...] Description 05/05/2025 1:00 PM EDT Procedure visit [facility] Neurology [address] [phone] Suman Dudley MD [address] [place] [address] documented as of this encounter Visit Diagnoses Not on filedocumented in this encounter Care Teams Industrial Engineering Director Relationship Specialty Start Date End Date Adeline Guo MD [address] [place] [address] PCP - General Internal Medicine 03/10/20 10/13/24 Curt Wiseman MD [address] [place] [address] Dr Garcia [facility] [place] [address] PCP - General Family Medicine 10/14/24 Feliciano Evans MD [address] [place] [address] Referring Provider 10/28/20 Yara Harding MD [address] [place] [address] Neurology 03/20/[address] [place] [address] [address] Neurology Neurology 06/07/22 documented as of this encounter
--- OUTSIDE RECORDS SUMMARY | 2025-04-17 06:21 | XMS_ITS | Clinical Summary ---
Author Organization [facility] Address [address] [place] [address] Care Team Providers Care Sample Maker Hand Name Role Phone Adeline Locke Primary Care [...] Td Vaccines (2 - Tdap) 05/05/2021 05/05/2011 Alcohol/Substance Use Screening 08/07/2024 Depression Screening and Follow-Up 08/07/2024 Health Care Proxy Review 08/07/2024 Social Drivers of Health Annual Screening 08/07/2024 COVID-19 Vaccine ( season) 2025 04/22/2022, 11/11/2021, 03/20/2021, Additional history exists Influenza Vaccine (#1) 2025 , 04/07/2020, 05/24/2019, Additional history exists RSV Vaccine (60+ years old and patients) (1 - 1-dose 75+ series) 2027 Zoster Vaccines Completed 11/25/2021, 05/07, 02/06/2012 Pneumococcal Vaccine: 50+ Years Completed 12/08/2021, 07/22/2011 Hepatitis B Vaccines Aged Out No long er eligible based on patient's age to complete this topic Medical Devices Implanted Type Area [place] Device Identifier Shelf Expiration Date Model / Serial / Lot Baseplate Reverse Shoulder Prosthesis With P2 Coating 30mm - [id number] Implanted:Qty: 1 on 07/12/2019 by Andrew Butler MD at [facility] Implant [employer] 05/03/2025 [id number] / / [id number] Head Glenoid With Retaining Screw [place] Shoulder Prosthesis Neutral 32mm - [id number] Implanted:Qty: 1 on 07/12/2019 by Andrew Butler MD at [facility] Implant [employer] 04/09/2025 [id number] / / [id number] Insert Socket Humeral Standard Hxe-Plus Rsp Sterile [id number] - [id number] Implanted:Qty: 1 on 07/12/2019 by Andrew Butler MD at [facility] Implant [employer] 05/31/2023 [id number] / / [id number] Stem Humeral Standard Reverse Shoulder Prosthesis [id number] - [id number] Implanted:Qty: 1 on 07/12/2019 by Andrew Butler MD at [facility] Implant [employer] 07/12/2024 530-10-108 / / [id number] Screw Locking Reverse Shoulder Prosthesis [id number] - [id number] Implanted:Qty: 1 on 07/12/2019 by Andrew Butler MD at [facility] Screw [employer] 03/24/2025 506-03-130 / / [id number] Screw Locking Bone Reverse Shoulder Prosthesis [id number] - [id number] Implanted:Qty: 1 on 07/12/2019 by Andrew Butler MD at [facility] Screw [employer] 04/19/2025 [id number] / / [id number] Screw Locking Reverse Shoulder Prosthesis [id number] - [id number] Implanted:Qty: 1 on 07/12/2019 by Andrew Butler MD at [facility] Screw [employer] 02/27/2025 506-03-130 / / [id number] Insurance [facility] Advance Directives * Full Code (Latest Code Status on File) Date Activated Date Inactivated Comments 07/12/2019 1:40 PM 07/13/2019 8:20 PM * Full Code Date Activated Date Inactivated Comments 07/12/2019 6:13 AM 07/12/2019 1:40 PM Care Teams Sample Maker Hand Relationship Specialty Start Date End Date Adeline Locke PCP - General Pediatrics 11/14/17
--- OUTSIDE RECORDS SUMMARY | 2025-04-17 06:21 | XMS_ITS | Encounter Summary ---
Author Organization [facility] Address [address] [place] [address] Care Team Providers Care Social Worker Aide Name Role Phone Adeline Guo MD Primary Care Provider +- [phone] Feliciano Evans MD Unavailable Unavailable Yara Hrading MD Unavailable [phone] Curt Wiseman MD Primary Care Provider [phone] Encounter Details Date Type Department Care Team (Late Contact Info) Description 08/05/2020 Scanned Document [facility] Neurosurgery [place] [address] [phone] Monroe Choi MD [address] [address] Social History Tobacco Use Types Packs/Day Years [...] Description 05/05/2025 1:00 PM EDT Procedure visit [facility] Neurology [address] [phone] Suman Dudley MD [address] [place], [place] [address] [address] documented as of this encounter Visit Diagnoses Not on filedocumented in this encounter Care Teams Social Worker Aide Relationship Specialty Start Date End Date Adeline Guo MD [address] [place] [address] PCP - General Internal Medicine 03/10/20 10/13/24 Curt Wiseman MD [address] [place] [address] PCP - General Family Medicine 10/14/24 Feliciano Evans MD [address] [place] [address] Referring Provider 10/28/20 Yara Harding MD [address] [place] [address] Neurology 03/20/23 [place] Sethi [address] [place] [address] Neurology Neurology 06/07/22 documented as of this encounter
--- OUTSIDE RECORDS SUMMARY | 2025-04-17 06:21 | XMS_ITS | Continuity of Care Document ---
Author Organization [facility] Address [address] [place] [address] Care Team Providers Care Enterprise Infrastructure Architect Name Role Phone Curt Wiseman MD Primary Care Provider Encounters Date Type Department Care Team Description 10/14/2023 [facility] Neurology [address] [facility] [address] [place] [address] Austin Sethi MD E-prescribing Refill Request 10/10/2023 Refill [facility] Neurology [address] [facility] [address] [place] [address] Austin Sethi MD Refill Request 06/25/2023 Refill [facility] Neurology [address] [facility] [address] [place] [address] Austin Sethi MD Med Change Request; Refill Request 05/22/2023 Refill [facility] Neurology [address] [facility] [address] [place] [address] Austin Sethi MD E-prescribing Refill Request 03/20/2023 Telephone [facility] Neurology [address] [facility] [address] [place] [address] Austin Sethi MD Medication Check 02/20/2023 Refill [facility] Neurology [address] [facility] [address] [place] [address] Austin Sethi MD E-prescribing Refill Request 01/10/2023 Refill [facility] Neurology [address] [facility] [address] [place] [address] Austin Sethi MD E-prescribing Refill Request 08/08/2022 Refill [facility] Neurology [address] [facility] [address] [place] [address] Austin Sethi MD E-prescribing Refill Request 07/25/2022 Telephone [facility] Neurology [address] [facility] [address] [place] [address] Austin Sethi MD Appointment 06/07/2022 4:30 PM EDT Office Visit [facility] Neurology [address] [facility] [address] [place] [address] Austin Sethi MD Essential tremor (Primary Dx) 05/23/2022 Refill [facility] Neurology [address] [facility] [address] [place] [address] Austin Sethi MD E-prescribing Refill Request 03/11/2022 Telephone [facility] Neurology [address] [facility] [address] [place] [address] Austin Sethi MD Follow Up 03/07/2022 8:15 AM EDT Office Visit [facility] Neurology [address] [facility] [address] [place] [address] Austin Sethi MD Essential tremor (Primary Dx) 02/22/2022 Telephone [facility] Neurology [address] [facility] [address] [place] [address] Austin Sethi MD Appointment 01/19/2022 Telephone [facility] Neurology [address] [facility] [address] [place] [address] Austin Sethi MD Follow Up 12/24/2021 Refill [facility] Neurology [address] [facility] [address] [place] [address] Austin Sethi MD 12/11/2021 Refill [facility] Neurology [address] [facility] [address] [place] [address] Austin Sethi MD E-prescribing Refill Request 11/15/2021 Telephone [facility] Neurology [address] [facility] [address] [place] [address] Austin Sethi MD Follow Up (DBS adjustment ) 10/29/2021 4:00 PM EDT Office Visit [facility] Neurology [address] [facility] [address] [place] [address] Austin Sethi MD Essential tremor (Primary Dx) 10/28/2021 Refill [facility] Neurology [address] [facility] [address] [place] [address] Toma Salas MD E-prescribing Refill Request 09/26/2021 Refill [facility] Neurology [address] [facility] [address] [place] [address] Austin Sethi MD E-prescribing Refill Request 09/12/2021 Refill [facility] Neurology [address] [facility] [address] [place] [address] Austin Sethi MD E-prescribing Refill Request 07/23/2021 Telephone [facility] Neurology [address] [facility] [address] [place] [address] Lorna Prado, SONALI Appointment 05/03/2021 3:30 PM EDT Office Visit [facility] Neurology [address] [facility] [address] [place] [address] Austin Sethi MD Essential tremor (Primary Dx) 04/16/2021 Telephone [facility] Neurology [address] [facility] [address] [place] [address] Austin Sethi MD Appointment 01/29/2021 4:45 PM EDT Office Visit [facility] Neurology [address] [facility] [address] [place] [address] Austin Sethi MD Essential tremor (Primary Dx) 12/31/2020 Telephone [facility] Neurology [address] [facility] [address] [place] [address] Austin Sethi MD Follow Up (DBS) 12/25/2020 Telephone [facility] Neurology [address] [facility] [address] [place] [address] Austin Sethi MD Medication Problem (Lorazepam) 12/24/2020 Telephone [facility] Neurology [address] [facility] [address] [place] [address] Austin Sethi MD Prior Authorization Request (lorazepam) 12/22/2020 Travel 12/22/2020 4:30 PM EDT Office Visit [facility] Neurology [address] [facility] [address] [place] [address] Austin Sethi MD Essential tremor (Primary Dx); PTSD (post-traumatic stress disorder) 12/15/2020 Refill [facility] Neurology [address] [facility] [address] [place] [address] Austin Sethi MD Refill Request (Xanax 0.25) 12/10/2020 10:30 AM EDT Office Visit [facility] Neurology [address] [facility] [address] [place] [address] Austin Sethi MD Essential tremor (Primary Dx) 12/09/2020 Telephone [facility] Neurology [address] [facility] [address] [place] [address] Austin Sethi MD Follow Up (DBS) 12/08/2020 Travel 12/08/2020 8:00 AM EDT Office Visit [facility] Neurology [address] [facility] [address] [place] [address] Austin Sethi MD Essential tremor (Primary Dx) 11/25/2020 Telephone [facility] Neurology [address] [facility] [address] [place] [address] Austin Sethi MD Other 10/30/2020 Refill [facility] Neurology [address] [facility] [address] [place] [address] Austin Sethi MD E-prescribing Refill Request 10/30/2020 Telephone [facility] Neurology [address] [facility] [address] [place] [address] Austin Sethi MD Medication Problem (primidone) 10/20/2020 Travel 10/20/2020 8:00 AM EDT Consult (Initial) [facility] Neurology [address] [facility] [address] [place] [address] Austin Sethi MD Essential tremor (Primary Dx) 10/01/2020 Telephone [facility] Neurology [address] [facility] [address] [place] [address] Austin Sethi MD Appointment 03/13/2018 Orders Only [facility] Cardiology [address] [place] [address] [address] [place] [address] Jorge Pascual DO 03/13/2018 Orders Only [facility] Pre-Admission Testing [address] [place] [address] Yamilex Langston NP 03/13/2018 3:30 PM EDT Office Visit [facility] Pre-Admission Testing [address] [place] [address] Yamilex Langston NP Preop examination (Primary Dx); Gastroesophageal reflux disease, esophagitis presence not specified; Hyperlipidemia, unspecified hyperlipidemia type; Hypertension, unspecified type; Benign prostatic hyperplasia, unspecified whether lower urinary tract symptoms present; Mood disorder; RLS (restless legs syndrome); SAMMIE (obstructive sleep apnea) 03/13/2018 3:00 PM EDT Nurse Visit [facility] Pre-Admission Testing [address] [place] [address] Poonam Pedersen, RN Gastroesophageal reflux disease, esophagitis presence not specified (Primary Dx) 02/19/2018 2:45 PM EDT Consult (Initial) [facility] General Surgery [address] [facility] [address] [place] [address] Trevor Lo MD Gastroesophageal reflux disease without [...] problems Social History Smoking Status as of 04/17/2025 Tobacco Use Types Packs/Day Years Used Date [...] Not on file Procedures * Due to [place] state law, [...] XRAY ESOPHAGUS 11/14/2017 Results * Due to [place] state law, [...] EDT 03/13/2018 8:44 PM EDT Yamilex Langston STEAMBOAT CAPTAIN CARDIOVASCULAR-WITH INBSK T RTG Final Result Performing Organization Address City/[facility]/ZIP Co de Phone Number [facility] * PROTHROMBIN TIME (PT) (INR), BLOOD (03/13/2018 4:11 PM EDT) INR 1.0 [facility] Comment: Reference Range 0.9-1.1 Moderate-intensity Warfarin Therapy 2.0-3.0 Higher-intensity Warfarin Therapy 3.0-4.0 PT 10.7 9.0 - 11.5 sec [facility] Comment: For more information on this test, go to: [email or web address] 03/13/2018 4:11 PM EDT 03/13/2018 9:37 PM EDT Narrative Resulting Agency Comment [id number] us Yamilex Langston STEAMBO[employer] CAPTAIN LAB SAME DAY RESULT Final Result [facility] [address] [place] [address] * CBC INCLUDES DIFFERENTIAL AND PLATELET COUNT [...] 9:37 PM EDT Narrative Resulting Agency Comment [id number] Yamilex Langston [employer] [facility] SAME DAY RESULT Final Result [facility] [address] [place] [address] * HEPATIC FUNCTION PANEL (ALT,AST,ALK PH,BILI'S,TP,ALB) (03/13/2018 [...] 9:37 PM EDT Narrative Resulting Agency Comment [id number] Yamilex Langston [employer]AM[employer] CAPTAIN LABORATORY Final Res ult [facility] [address] [place] [address] * BASIC METABOLIC PANEL WITH (GFR) (03/13/2018 4:11 PM EDT) Glucose 98 65 - 99 mg/dL [facility] Comment:Fasting reference in terval Urea Nitrogen Blood (BUN) 20 7 - 25 mg/dL [facility] Creatinine 1.05 0.70 - 1.25 mg/dL [facility] Comment: For patients >49 years of age, the reference limit for Creatinine is approximately 13% higher for people identified as -Tai[place]ese. GFR 74 > OR = 60 mL/min/1 [...] needs for GFR calculation. Resulting Agency Comment [id number] Yamilex Langston [employer] [facility]ORAT[facility] Final Res ult [facility] [address] [place] [address] * XRAY ESOPHAGUS (11/14/2017) 11/14/2017 us Pricila [...] specified forms of tremor 06/07/2022 Care Teams Enterprise Infrastructure Architect Relationship Specialty Start Date End Date Curt Wiseman MD [address] [address] PCP - General Family Medicine 02/10/21
--- OUTSIDE RECORDS SUMMARY | 2025-04-17 06:22 | XMS_ITS | Clinical Summary ---
Author Organization [facility] Address [address] [place] [address] Care Team Providers Care Mud Analysis Well Logging Operator Name Role Phone Feliciano Evans MD Unavailable Unavailable Yara Harding MD Unavailable Curt Wiseman MD Primary Care Provider [phone] Allergies Active Allergy Reactions Criticality Noted Date [...] 2024 Entered By: REJI BERNARD Comment: Agent [place] Registry Exam 02/20/24 Feb 20, 2024 Entered By: REJI BERNARD Comment: Agent [place] Exposure, [facility], [facility] 1969- Generalized abdominal pain 10/14/2024 Melena 10/14/2024 [...] deep brain stimulator placement 02/04 Overview (09/24/2021): [facility], Linear lead, right chest Postoperative visit [...] 01/27/2025 1:00 PM EDT Procedure visit [facility] Neurology [address] [address] Suman Dudley MD Essential tremor [...] 05/05/2025 1:00 PM EDT Procedure visit [facility] Neurology [place] [address] [facility] [address] [place] [address] Suman Dudley MD [address] [facility] [address] [place] [address] Health Maintenance Due Date Last Done Comments Advance Care Planning 1950 Hepatitis C Virus Screening 1950 DTaP/Tdap/Td Vaccines (1 - Tdap) 1971 Pneumococcal Vaccines 50+ (1 of 2 - PCV) 1971 Colonoscopy 1997 Zoster (Shingles) Vaccine (1 of 2) 2002 RSV Vaccine 60 years and older and Patients (1 - Risk 60-74 years 1-dose series) 2012 Influenza Vaccine 03/07/2025 04/07/2024, , 05/25/2022, Additional history exists COVID-19 Vaccine (2024- season) 2025 11/08/2022, 04/22/2022, 11/11/2021, Additional history exists Hepatitis B Vaccines Aged Out No long er eligible based on patient's age to complete this topic Medical Devices Implanted Type Area Meat Pumper Device Identifier Shelf Expiration Date Model / Serial / Lot [id number] Extension Neurostimulator 60cm 1.3-3.8mm 1.5mm Std Qdpl Dist - [id number] Implanted:Qty: 1 on 11/25/2020 by Monroe Choi MD at [facility] Cerebral [employer] MINIMALLY INVASIVE T 09/10/2023 [id number] / [id number] / [id number] Extension Neurostimulator 60cm 1.3-3.8mm 1.5mm Std Qdpl Dist - [id number] Implanted:Qty: 1 on 11/25/2020 by Monroe Choi MD at [facility] Cerebral [employer] MINIMALLY INVASIVE T 01/31/2024 [id number] / [id number] / [id number] Screw Bone Mdfc 5mm 1.5mm Self Drill Htorq Xdr Grn [place] - [id number] Implanted:Qty: 4 on 11/04/2020 by Monroe Choi MD at [facility] Maxillofacial Cranial [employer] [id number] / / [id number] Lead Neurostimulator Strg Cylinder Firm Deep Brn Stm - [id number] Implanted:Qty: 1 on 11/04/2020 by Monroe Choi MD at [facility] Stimulator Right: Brain [employer] MINIMALLY INVASIVE T 05/25/2024 3387S-40 / / [id number] 3387s-40 Lead Neurostimulator Strg Cylinder Firm Deep Brn Stm - [id number] Implanted:Qty: 1 on 11/04/2020 by Monroe Choi MD at [facility] Stimulator [employer] MINIMALLY INVASIVE T 3387S-40 / / [id number] Neurostimulator Implantable 68mm X 51mm Percept 2 Chnl 61g - [id number] Implanted:Qty: 1 on 11/25/2020 by Monroe Choi MD at [facility] Stimulator [employer] MINIMALLY INVASIVE T 08/20/2022 [id number] / [id number] 1H / [id number] Digital Associate Media Director Neurostimulator Patient Percept Pc Device - [id number] Implanted:Qty: 1 on 11/25/2020 by Monroe Choi MD at [facility] Stimulator [employer] MINIMALLY INVASIVE T [id number] / / [id number] Kit Stimulator Tunnel Deep Brn Stm - [id number] Implanted:Qty: 1 on 11/25/2020 by Monroe Choi MD at [facility] Stimulator [employer] MINIMALLY INVASIVE T [id number] / / [id number] Filler Bone Void 10cc 20cc Calcium Slf Stimulan Rpd Cure Kit - [id number] Implanted:Qty: 1 on 11/04/2020 by Monroe Choi MD at [facility] Void Filler N/A: Brain [employer] - A BTG INT 12/04/2022 620-010 / / [id number] 620-010 Filler Bone Void 10cc 20cc Calcium Slf Stimulan Rpd Cure Kit - [id number] Implanted:Qty: 1 on 11/25/2020 by Monroe Choi MD at [facility] Void Filler Right: Chest [employer] - A BTG INT 12/04/2022 620-010 / / [id number] Description:mixed with 1 gm vancomycin powder and 1.2gm tobramycin powder Explanted Type Area Meat Pumper Device Identifier Shelf Expiration Date Model / Serial / Lot 70-It-Ar5p Electrode Neurostimulator [employer] Dzap - [id number] Explanted:Qty: 1 on 11/04/2020 by Monroe Choi MD at [facility] Stimulator Brain [employer] 10/15/2021 70-IT-AR 5P / / [id number] 66-It-Ar4p Electrode Neurostimulator Microtargeting Unilateral - [id number] Explanted:Qty: 1 on 11/04/2020 by Monroe Choi MD at [facility] Stimulator Brain [employer] 02/25/2023 66-IT-AR 4P / / [id number] Cable Neurostimulator Twstlk Scrn Sterl Lf - [id number] Explanted:Qty: 1 on 11/04/2020 by Monroe Choi MD at [facility] Stimulator Right: Brain [employer] MINIMALLY INVASIVE T 09/03/2024 3550-68 / / [id number] Description:NOT AN IMPLANT Insurance [facility] Advance Directives * Full Code (Latest Code Status on File) Date Activated Date Inactivated Comments 11/25/2020 8:30 AM * Full Code Date Activated Date Inactivated Comments 11/04/2020 4:31 PM 11/25/2020 7:56 AM Care Teams Mud Analysis Well Logging Operator Relationship Specialty Start Date End Date Curt Wiseman MD [address] [place] [address] Dr Dela CruzkeMEGAN [address] PCP - General Family Medicine 10/14/24 Feliciano Evans MD Referring Provider 10/28/20 Yara Harding MD Neurology 03/20/23 Austin Sethi [address] [place] [address] Neurology Neurology 06/07/22
--- OUTSIDE RECORDS SUMMARY | 2025-04-17 06:22 | XMS_ITS | Encounter Summary ---
Author Organization [facility] Address [address] [place] [address] Care Team Providers Care Clinical Education Manager Name Role Phone Adeline Guo MD Primary Care Provider [phone]- [phone] Feliciano Evans MD Unavailable Unavailable Yara Harding MD Unavailable [phone] Curt Wiseman MD Primary Care Provider [phone] Encounter Details Date Type Department Care Team (Late Contact Info) Description 06/01/2022 Scanned Document [facility] Neurosurgery [address] [place] [address] Neurosurgery, Scan Social History Tobacco Use [...] Upcoming Encounters Date Type Department Care Team ([facility] Contact Info) Description 05/05/2025 1:00 PM EDT Procedure visit [facility] Neurology [address] [address] Suman Dudley MD [address] [address] documented as of this encounter Visit Diagnoses Not on filedocumented in this encounter Care Teams Clinical Education Manager Relationship Specialty Start Date End Date Adeline Guo MD [address] [place] [address] PCP - General Internal Medicine 03/10/20 10/13/24 Curt Wiseman MD [address] [place] [address] Dr Garcia [address] [place] [address] PCP - General Family Medicine 10/14/24 Feliciano Evans MD [address] [place] [address] Referring Provider 10/28/20 Yraa Harding MD [address] [place] [address] Neurology 03/20/23 Austin Sethi [address] [place] [address] Neurology Neurology 06/07/22 documented as of this encounter
--- OUTSIDE RECORDS SUMMARY | 2025-04-17 06:22 | XMS_ITS | Encounter Summary ---
Author Organization [facility] Address [address] [facility] 7t [place] [address] Care Team Providers Care Mainspring Former Name Role Phone Unavailable Primary Care Provider Unavailabl e Encounter Details Date Type Department Care Team (Late st Contact Info) Description 03/18/2024 Telephone [facility] ADULT DENTAL [address] [place] [address] Dipti Rosenthal [address] [place] [address] Social History Tobacco Use Types Packs/Day Years [...] 08/27/2025 1:00 PM EST Office Visit [facility] ADULT DENTAL [address] [place] [address] Corinne Pedroza documented as of this encounter Visit Diagnoses Not on filedocumented in this encounter
--- OUTSIDE RECORDS SUMMARY | 2025-04-17 06:22 | XMS_ITS | Encounter Summary ---
Author Organization [facility] Address [address] [place] [address] Care Team Providers Care Caterpillar Mechanic Name Role Phone Adeline Guo MD Primary Care Provider +- [phone] Feliciano Evans MD Unavailable Unavailable Yara Harding MD Unavailable [phone] Curt Wiseman MD Primary Care Provider [phone] Encounter Details Date Type Department Care Team (Late st Contact Info) Description 05/20/2021 Scanned Document [facility] Neurosurgery [place] [address] [facility] [address] [place] [phone] Monroe Choi MD [address] [facility] [place] [address] [place] [address] Social History Tobacco Use Types Packs/Day Years [...] Description 05/05/2025 1:00 PM EDT Procedure visit [facility] Neurology [place] [address] [facility] [address] [place] [address] Suman Dudley MD [address] [address] documented as of this encounter Visit Diagnoses Not on filedocumented in this encounter Care Teams Caterpillar Mechanic Relationship Specialty Start Date End Date Adeline Guo MD [address] [place] [address] PCP - General Internal Medicine 03/10/20 10/13/24 Curt Wiseman MD [address] [place] [address] Dr Garcia [address] [place] [address] PCP - General Family Medicine 10/14/24 Feliciano Evans MD [address] [place] [address] Referring Provider 10/28/20 Yara Harding MD [address] [place] [address] Neurology 03/20/23 Austin Sethi [address] [place] [address] Neurology Neurology 06/07/22 documented as of this encounter
--- OUTSIDE RECORDS SUMMARY | 2025-04-17 06:22 | XMS_ITS | Encounter Summary ---
Author Organization [facility] Address [address] [place] [address] Care Team Providers Care Operating Room Nurse Name Role Phone Adeline Guo MD Primary Care Provider +1- [phone] Curt Wiseman MD Primary Care Provider [phone]- [phone] Encounter Details Date Type Department Care Team ([facility] st Contact Info) Description 03/13/[address] [facility] Pre-Admission Testing [address] [place] [address] Yamilex Langston NP Social History Tobacco Use [...] of this encounter Procedures * Due to [place] state law, [...] in this encounter Results * Due to [place] state law, [...] 03/13/2018 8:44 PM EDT us Yamilex Langston DIPLOMA MEDICAL ASSISTANT CARDIOVASCULAR-WITH INBSK T RTG Final Result MUSE EKG SYSTEM * PROTHROMBIN TIME (PT) (INR), BLOOD (03/13/2018 4:11 PM EDT) Pathologist [facility] INR 1.0 [facility] Comment: Reference Range 0.9-1.1 Moderate-intensity Warfarin Therapy 2.0-3.0 Higher-intensity Warfarin Therapy 3.0-4.0 PT 10.7 9.0 - 11.5 sec [facility] Comment: For more information on this test, go to: http://education.Knowledgestreem/faq/[email or web address] 03/13/2018 4:1 1 PM EDT 03/13/2018 9:37 PM EDT Narrative Resulting Agency Comment [id number] Yamilex Langston NP LAB SAME DAY RESULT Final Result Performing Organization Address [facility] de Phone Number [facility] [address] [place] [address] * HEPATIC FUNCTION PANEL (ALT,AST,ALK PH,BILI'S,TP,ALB) (03/13/2018 4:11 PM EDT) Pathologist [facility] Protein Total (Serum) 6.7 6.1 - 8.1 [...] 9:37 PM EDT Narrative Resulting Agency Comment [id number] Yamilex Langston DIPLOMA MEDICAL ASSISTANT LABORATORY Final Res ult Performing Organization Address [facility]/ZIP Co de Phone Number [facility] [address] [place] [address] * CBC INCLUDES DIFFERENTIAL AND PLATELET COUNT [...] 9:37 PM EDT Narrative Resulting Agency Comment [id number] Yamilex Langston DIPLOMA MEDICAL ASSISTANT LAB SAME DAY RESULT Final Result Performing Organization Address City/[facility]/ZIP Co de Phone Number [facility] [address] [place] [address] * BASIC METABOLIC PANEL WITH (GFR) (03/13/2018 4:11 PM EDT) Pathologist [facility] Glucose 98 65 - 99 mg/dL [facility] Comment:Fasting reference in terval Urea Nitrogen Blood (BUN) 20 7 - 25 mg/dL [facility] Creatinine 1.05 0.70 - 1.25 mg/dL [facility] Comment: For patients >49 years of age, the reference limit for Creatinine is approximately 13% higher for people identified as -Citizen Of [place]. GFR 74 > OR = 60 mL/min/1 [...] needs for GFR calculation. Resulting Agency Comment [id number] us Yamilex Langston DIPLOMA MEDICAL ASSISTANT LABORATORY Final Res ult [facility] [address] [place] [address] documented in this encounter Visit Diagnoses Diagnosis Preop examination Preoperative examination, unspecified Gastroesophageal reflux disease, esophagitis presence not specified Hyperlipidemia, unspecified hyperlipidemia type Hypertension, unspecified type Benign prostatic hyperplasia, unspecified whether lower urinary tract symptoms present Mood disorder Unspecified episodic mood disorder RLS (restless legs syndrome) Restless legs syndrome (RLS) documented in this encounter Care Teams Operating Room Nurse Relationship Specialty Start Date End Date Adeline Guo MD [address] [address] PCP - General Internal Medicine 11/30/17 02/09/21 Curt Wiseman MD [address] [place] [address] PCP - General Family Medicine 02/10/21 documented as of this encounter
--- OUTSIDE RECORDS SUMMARY | 2025-04-17 06:22 | XMS_ITS | Encounter Summary ---
Author Organization [facility] Address [address] [place] [address] Care Team Providers Care Security Director Name Role Phone Adeline Guo MD Primary Care Provider +- [phone] Feliciano [place] MD Unavailable Unavailable Yara Harding MD Unavailable +-[phone] Curt Wiseman MD Primary Care Provider [phone] Encounter Details Date Type Department Care Team (Late Contact Info) Description 06/18/2020 Scanned Document [facility] Neurosurgery [place] [address] [facility] [address] [place] [phone] [place] Choi MD 85 [facility] [place] [address] [place] [address] Social History Tobacco Use Types Packs/Day Years [...] 05/05/2025 1:00 PM EDT Procedure visit [facility] Neurology [place] 35 [facility] [address] [place] [address] Suman Dudley MD [address] [address] documented as of this encounter Visit Diagnoses Not on filedocumented in this encounter Care Teams Security Director Relationship Specialty Start Date End Date Adeline Guo MD [address] [place] [address] PCP - General Internal Medicine 03/10/20 10/13/24 Curt Wiseman MD [address] [place] [address] Dr Garcia [address] [place] [address] PCP - General Family Medicine 10/14/24 Feliciano [place] MD [address] [place] [address] Referring Provider 10/28/20 Yara Harding MD [address] [place] [address] Neurology 03/20/[address] [address] Neurology Neurology 06/07/22 documented as of this encounter
--- OUTSIDE RECORDS SUMMARY | 2025-04-17 06:22 | XMS_ITS | Encounter Summary ---
Author Organization [facility] Address [address] [place] [address] Care Team Providers Care Application Development Project Manager Name Role Phone Adeline Guo MD Primary Care Provider +1- [phone] Feliciano [place] MD Unavailable Unavailable Yara Harding MD Unavailable [phone] Curt Wiseman MD Primary Care Provider +[phone] Encounter Details Date Type Department Care Team (Late Contact Info) Description 05/10/2022 Scanned Document [facility] NEUROSURGERY SCAN Neurosurgery, Scan Social History [...] Upcoming Encounters Date Type Department Care Team ([facility] Contact Info) Description 05/05/2025 1:00 PM EDT Procedure visit [facility] Neurology [address] [place] [phone] Suman Dudley MD 35 [facility] [address] [place] [address] documented as of this encounter Visit Diagnoses Not on filedocumented in this encounter Care Teams Application Development Project Manager Relationship Specialty Start Date End Date Adeline Guo MD [address] [place] [address] PCP - General Internal Medicine 03/10/20 10/13/24 Curt Wiseman MD [address] [place] [address] [address] [place] [address] PCP - General Family Medicine 10/14/24 Feliciano [place] MD [address] [place] [address] Referring Provider 10/28/20 Yara Harding MD [address] [place] [address] Neurology 03/20/[address] [place] [address] [address] Neurology Neurology 06/07/22 documented as of this encounter
--- OUTSIDE RECORDS SUMMARY | 2025-04-17 06:22 | XMS_ITS | Encounter Summary ---
Author Organization [facility] Address [address] [place] [address] Care Team Providers Care Order Packer Or Packager Name Role Phone Adeline Guo MD Primary Care Provider +- [phone] Feliciano [place] MD Unavailable Unavailable Yara Harding MD Unavailable [phone] Curt Wiseman MD Primary Care Provider [phone] Encounter Details Date Type Department Care Team (Late st Contact Info) Description 07/19/2022 Telephone [facility] Neurology [address] [place] [address] Yara Harding MD [facility] [address] [place] [address] Social History Tobacco Use Types Packs/Day Years [...] 05/05/2025 1:00 PM EDT Procedure visit [facility] Neurology [place] 35 [facility] 6 [place] [address] Suman Dudley MD [address] [address] documented as of this encounter Visit Diagnoses Not on filedocumented in this encounter Care Teams Order Packer Or Packager Relationship Specialty Start Date End Date Adeline Guo MD [address] [place] [address] PCP - General Internal Medicine 03/10/20 10/13/24 Curt Wiseman MD [address] [place] [address] Dr [address] [place] [address] PCP - General Family Medicine 10/14/24 Feliciano [place] MD [address] [place] [address] Referring Provider 10/28/20 Yara Harding MD [address] [place] [address] Neurology 03/20/23 [place] Sethi [address] [place] [address] Neurology Neurology 06/07/22 documented as of this encounter
--- OUTSIDE RECORDS SUMMARY | 2025-04-17 06:22 | XMS_ITS | Encounter Summary ---
Author Organization [facility] Address [address] [place] [address] 7[address] [place] [address] Care Team Providers Care Neurology Technologist Name Role Phone Unavailable Primary Care Provider Unavailabl e Reason for Visit * Reason Onset Date Comments medication pre med 07/17/2023 Encounter Details Date Type Department Care Team (Late st Contact Info) Description 07/17/2023 Telephone [facility] ADULT DENTAL [address] [place] [address] Art Poe DDS [address] [place], [place] [phone] medication pre med Social History Tobacco Use [...] Description 08/27/2025 1:00 PM EST Office Visit [facility] ADULT DENTAL [address] [place], [place] [phone] Corinne Pedroza documented as of this encounter Visit Diagnoses Not on filedocumented in this encounter
--- OUTSIDE RECORDS SUMMARY | 2025-04-17 06:22 | XMS_ITS | Encounter Summary ---
Author Organization [facility] Address [address] [place] [address] Care Team Providers Care Clinical Laboratory Assistant Name Role Phone Adeline Guo MD Primary Care Provider +- [phone] Feliciano [place] MD Unavailable Unavailable Yara Harding MD Unavailable [phone] Curt Wiseman MD Primary Care Provider [phone] Encounter Details Date Type Department Care Team (Late Contact Info) Description 05/15/[address] [facility] [place] [facility] Neurosurgery [place] 35 [facility] [address] [place] [address] Marcelino Steen MD 35 [facility] 5 [place] [address] Social History Tobacco Use Types Packs/Day Years [...] 1:00 PM EDT Procedure visit [facility] [place] [facility] Neurology [place]l 35 [facility] [address] [place] [address] Suman Dudley MD [address] [place] [address] [place] [address] documented as of this encounter Visit Diagnoses Not on filedocumented in this encounter Care Teams Clinical Laboratory Assistant Relationship Specialty Start Date End Date Adeline Guo MD [address] [place] [address] PCP - General Internal Medicine 03/10/20 10/13/24 Curt Wiseman MD [address] [place] [address] Dr Garcia [address] [place] [address] PCP - General Family Medicine 10/14/24 Feliciano [place] MD [address] [place] [address] Referring Provider 10/28/20 Yara Harding MD [address] [place] [address] Neurology 03/20/[address] [address] Neurology Neurology 06/07/22 documented as of this encounter
--- OUTSIDE RECORDS SUMMARY | 2025-04-17 06:22 | XMS_ITS | Encounter Summary ---
Author Organization [facility] Address [address] [place] [address] Care Team Providers Care Marine Transport Professionals Name Role Phone Adeline Guo MD Primary Care Provider +- [phone] Feliciano [place] MD Unavailable Unavailable Yara Harding MD Unavailable [phone] Curt Wiseman MD Primary Care Provider [phone] Encounter Details Date Type Department Care Team (Late Contact Info) Description 04/07/2020 Scanned Document [facility] Neurosurgery [place] 85 [facility] [address] [place] [phone] [place] Choi MD 85 [facility] [place] [address] [place] [address] Social History Tobacco Use Types Packs/Day Years [...] [facility] Neurology [place]l 35 [facility] [address] [place] [address] Suman Dudley MD [address] [place] [address] [place] [address] documented as of this encounter Visit Diagnoses Not on filedocumented in this encounter Care Teams Marine [employer] Professionals Relationship Specialty Start Date End Date Adeline Guo MD [address] [place] [address] PCP - General Internal Medicine 03/10/20 10/13/24 Curt Wiseman MD [address] [place] [address] Dr Garcia [address] [place] [address] PCP - General Family Medicine 10/14/24 Feliciano [place] MD [address] [place] [address] Referring Provider 10/28/20 Yara Harding MD [address] [place] [address] Neurology 03/20/[address] [address] Neurology Neurology 06/07/22 documented as of this encounter
--- OUTSIDE RECORDS SUMMARY | 2025-04-17 06:22 | XMS_ITS | Encounter Summary ---
Author Organization [employer] [facility] Address [address] [place] [address] 7t [place] [address] Care Team Providers Care Food Consultant Name Role Phone Unavailable Primary Care Provider Unavailabl e Reason for Visit * Reason Onset Date Comments Med Refill 10/08/2024 Encounter Details Date Type Department Care Team (Late st Contact Info) Description 10/08/2024 Refill [facility] ADULT DENTAL [address] [place] [address] Rocío Castillo DDS Social History Tobacco Use [...] Description 08/27/2025 1:00 PM EST Office Visit [facility] ADULT DENTAL [address] [place] [address] Corinne Perdoza documented as of this encounter Visit Diagnoses Not on filedocumented in this encounter
--- OUTSIDE RECORDS SUMMARY | 2025-04-17 06:22 | XMS_ITS | Encounter Summary ---
Author Organization [facility] Address [address] [place] [address] Care Team Providers Care Pipe Washer Name Role Phone Adeline Guo MD Primary Care Provider [phone]- [phone] Feliciano [place] MD Unavailable Unavailable Yara Harding MD Unavailable +-[phone] Curt Wiseman MD Primary Care Provider [phone] Encounter Details Date Type Department Care Team (Late st Contact Info) Description 10/30/2020 Scanned Document [facility] Neurology [address] [place] [phone] Angelica Zuluaga, [facility] [address] [facility] [address] [place] [phone] Social History Tobacco Use Types Packs/Day Years [...] Description 05/05/2025 1:00 PM EDT Procedure visit [facility] Neurology [place]l 35 [facility] 6 [place] [address] Suman Dudley MD [address] [address] documented as of this encounter Visit Diagnoses Not on filedocumented in this encounter Care Teams Pipe Washer Relationship Specialty Start Date End Date Adeline Guo MD [address] [place] [address] PCP - General Internal Medicine 03/10/20 10/13/24 Curt Wiseman MD [address] [place] [address] Dr Garcia [address] [place] [address] PCP - General Family Medicine 10/14/24 Feliciano [place] MD [address] [place] [address] Referring Provider 10/28/20 Yara Harding MD [address] [place] [address] Neurology 03/20/23 [place] Sethi [address] [place] [address] Neurology Neurology 06/07/22 documented as of this encounter
--- OUTSIDE RECORDS SUMMARY | 2025-04-17 06:22 | XMS_ITS | Encounter Summary ---
Author Organization [employer] [facility] Address [address] [place] [address] 7t [place] [address] Care Team Providers Care Newspaper Peddler Name Role Phone Unavailable Primary Care Provider Unavailabl e Encounter Details Date Type Department Care Team (Latest Contact Info) Description 04/13/2022 Abstract [facility] CONVERSIONS Dental, Provider, DDS Social History [...] Description 08/27/2025 1:00 PM EST Office Visit [facility] ADULT DENTAL [address] [place] [address] Corinne Pedroza documented as of this encounter Visit Diagnoses Not on filedocumented in this encounter
--- OUTSIDE RECORDS SUMMARY | 2025-04-17 06:22 | XMS_ITS | Encounter Summary ---
Author Organization [employer] [facility] Address [address] [place] [address] 7[address] [place] [address] Care Team Providers Care Sex Crimes Detective Name Role Phone Unavailable Primary Care Provider Unavailabl e Reason for Visit * Reason Onset Date Comments returning call placed yesterday 03/10 dental 12/2024 Encounter Details Date Type Department Care Team (Late Contact Info) Description 03/11/2025 Telephone [facility] ADULT DENTAL [address] [place] [address] Alex Burns, JANAK [address] [place] [address] returning call placed yesterday 03/10 dental Social [...] Department Care Team (Late Contact Info) Description 08/27/2025 1:00 PM EST Office Visit [facility] ADULT DENTAL [address] [place] [address] Corinne Pedroza documented as of this encounter Visit Diagnoses Not on filedocumented in this encounter
--- OUTSIDE RECORDS SUMMARY | 2025-04-17 06:22 | XMS_ITS | Encounter Summary ---
Author Organization [facility] Address [address] [place] [address] Care Team Providers Care Ict Trainer Name Role Phone Adeline Guo MD Primary Care Provider +- [phone] Feliciano [place] MD Unavailable Unavailable Yara Harding MD Unavailable [phone] Curt Wiseman MD Primary Care Provider [phone] Encounter Details Date Type Department Care Team (Late st Contact Info) Description 11/26/2020 Prep for Surgery [facility] Pre-Admission Testing [facility] 85 [facility] 601 [place] [address] Mariama Allred, ASSISTANT PROFESSOR OF ARCHAEOLOGY [address] [place] [address] Social History Tobacco Use Types [...] Description 05/05/2025 1:00 PM EDT Procedure visit [facility] Neurology [place]l 35 [facility] [address] [place] [address] Suman Dudley MD [address] [address] documented as of this encounter Visit Diagnoses Not on filedocumented in this encounter Care Teams Ict Trainer Relationship Specialty Start Date End Date Adeline Guo MD [address] [place] [address] PCP - General Internal Medicine 03/10/20 10/13/24 Curt Wiseman MD [address] [place] [address] Dr Garcia [address] [place] [address] PCP - General Family Medicine 10/14/24 Feliciano [place] MD [address] [place] [address] Referring Provider 10/28/20 Yara Harding MD [address] [place] [address] Neurology 03/20/23 [place] Sethi [address] [place] [address] Neurology Neurology 06/07/22 documented as of this encounter
--- OUTSIDE RECORDS SUMMARY | 2025-04-17 06:22 | XMS_ITS | Encounter Summary ---
Author Organization [facility] Address [address] [place] [address] Care Team Providers Care Welding Lead Burner Name Role Phone Adeline Guo MD Primary Care Provider +- [phone] Feliciano [place] MD Unavailable Unavailable Yara Harding MD Unavailable +-[phone] Curt Wiseman MD Primary Care Provider [phone] Encounter Details Date Type Department Care Team (Late Contact Info) Description 04/08/2020 Scanned Document [address] [phone] [place] Choi MD [address] [place] [address] Social History Tobacco Use Types Packs/Day Years [...] Description 05/05/2025 1:00 PM EDT Procedure visit [facility] Neurology [place]l 35 [facility] [address] [place] [address] Suman Dudley MD [address] [address] documented as of this encounter Visit Diagnoses Not on filedocumented in this encounter Care Teams Welding Lead Burner Relationship Specialty Start Date End Date Adeline Guo MD [address] [place] [address] PCP - General Internal Medicine 03/10/20 10/13/24 Curt Wiseman MD [address] [place] [address] Dr Garcia [address] [place] [address] PCP - General Family Medicine 10/14/24 Feliciano [place] MD [address] [place] [address] Referring Provider 10/28/20 Yara Harding MD [address] [place] [address] Neurology 03/20/[address] [address] Neurology Neurology 06/07/22 documented as of this encounter
--- OUTSIDE RECORDS SUMMARY | 2025-04-17 06:22 | XMS_ITS | Encounter Summary ---
Author Organization [facility] Address [address] [place] [address] Care Team Providers Care Key Person Name Role Phone Curt Wiseman MD Primary Care Provider [phone] Reason for Visit * Reason Comments Appointment Encounter Details Date Type Department Care Team ([facility] st Contact Info) Description 04/16/2021 Telephone [facility] Neurology [address] [address] [place] Sethi MD 123 [facility] [address] [place] [address] Appointment Social History Tobacco Use Types Packs/Day [...] Phone 05/03/21 3:30 PM [place] Sethi MD [facility] Neurology [address] * Telephone Encounter [...] Phone 04/20/21 2:15 PM [place] Sethi MD [facility] Neurology [address] * Telephone Encounter [...] on filedocumented in this encounter Care Teams Key Person Relationship Specialty Start Date End Date Curt Wiseman MD [address] [address] PCP - General Family Medicine 02/10/21 documented as of this encounter
--- OUTSIDE RECORDS SUMMARY | 2025-04-17 06:22 | XMS_ITS | Encounter Summary ---
Author Organization Formerly [facility] Address [address] [place] [address] Care Team Providers Care Switchman Supervisor Name Role Phone Adeline Guo MD Primary Care Provider [phone] Feliciano Evans MD Unavailable Unavailable Yara Harding MD Unavailable [phone] Curt Wiseman MD Primary Care Provider [phone] Reason for Referral * Surgical (Routine) - Closed Specialty Diagnoses / Procedures Referred By Contanjel t Referred To Contact Anesthesiology Diagnoses Benign essential tremor Monroe Choi MD [address] [place] [address] Phone: tel: fax: [facility] at [address] 5th [place] [address] Phone: tel: fax: Referral ID Status Reason Start Date Expiration Date V isits Requested Visits Authorized [id number] Closed Specialty Services Required 11/14/2020 11/15/2021 1 1 Encounter Details Date Type Department Care Team (Late st Contact Info) Description 10/26/2020 Prep for Surgery [facility] Neurosurgery [address] [place] [phone] Emilee Brewer RN [address] [place], [place] [phone] Benign essential tremor (Primary Dx) Social History [...] 05/05/2025 1:00 PM EDT Procedure visit [facility] Neurology [address] [address] Suman Dudley MD [address] [phone] (Work) Scheduled Referrals Name Type Priority Associated Diagnoses Order Schedule Ambulatory referral to Anesthesiology Outpatient Referral Routine Benign essential tremor Ordered: 11/14/2020 documented as of this encounter Visit Diagnoses Diagnosis Benign essential tremor- Primary Essential and other specified forms of tremor documented in this encounter Care Teams Switchman Supervisor Relationship Specialty Start Date End Date Adeline Guo MD [address] [place] [address] [place] [address] PCP - General Internal Medicine 03/10/20 10/13/24 Curt Wiseman MD [address] [place] [address] [place] [address] PCP - General Family Medicine 10/14/24 Feliciano Evans MD [address] [place] [address] Referring Provider 10/28/20 Yara Harding MD [address] [place] [address] Neurology 03/20/23 Austin Sethi [address] [place] [address] Neurology Neurology 06/07/22 documented as of this encounter
--- OUTSIDE RECORDS SUMMARY | 2025-04-17 06:22 | XMS_ITS | Encounter Summary ---
Author Organization [facility] Address [address] [place] [address] Care Team Providers Care Laborer Aquatic Life Name Role Phone Adeline Guo MD Primary Care Provider +- [phone] Feliciano Evans MD Unavailable Unavailable Yara Harding MD Unavailable [phone] Curt Wiseman MD Primary Care Provider [phone] Encounter Details Date Type Department Care Team (Late st Contact Info) Description 02/28/2023 [facility] Neurology [address] [place] [address] Yara Harding MD IS [facility] [address] [place] [address] Social History Tobacco Use Types Packs/Day Years [...] visit [facility] [place] 35 [facility] 6 [place] [address] Suman Dudley MD [address] [address] documented as of this encounter Visit Diagnoses Not on filedocumented in this encounter Care Teams Laborer Aquatic Life Relationship Specialty Start Date End Date Adeline Guo MD [address] [place] [address] PCP - General Internal Medicine 03/10/20 10/13/24 Curt Wiseman MD [address] [place] [address] Dr Garcia [address] [place] [address] PCP - General Family Medicine 10/14/24 Feliciano Evans MD [address] [place] [address] Referring Provider 10/28/20 Yara Harding MD [address] [place] [address] Neurology 03/20/23 Austin Sethi [address] [place] [address] [phone] Neurology Neurology 06/07/22 documented as of this encounter
--- OUTSIDE RECORDS SUMMARY | 2025-04-17 06:22 | XMS_ITS | Encounter Summary ---
Author Organization [employer] Address [address] [facility] 7t [place] [address] Care Team Providers Care Compressed Gas Equipment Mechanic Name Role Phone Unavailable Primary Care Provider Unavailabl e Reason for Visit * Reason Onset Date Comments appt temp crown fell off/recement 03/19/2024 Encounter Details Date Type Department Care Team ([facility] st Contact Info) Description 03/19/2024 Telephone [facility] ADULT DENTAL [address] [place] [address] Rocío Castillo DDS appt temp crown fell [...] fell off. Ok to schedule per Megan lead front desk agent. Informed lead front desk agent via phone that [employer] is not an insurance we have access [...] tomorrow at 1:30. They would like to rock picker in the morning to have it ready to take prior to treatment. The pharmacy on file is the one to use. DR documented in this encounter Plan of Treatment Upcoming Encounters Date Type Department Care Team (Late st Contact Info) Description 08/27/2025 1:00 PM EST Office Visit [facility] ADULT DENTAL [address] [place] [address] Corinne Pedroza documented as of this encounter Visit Diagnoses Not on filedocumented in this encounter
--- OUTSIDE RECORDS SUMMARY | 2025-04-17 06:22 | XMS_ITS | Patient Health Record ---
Author Organization [facility] Address [address] [address] Care Team Providers Care Music Theory Professor Name Role Phone BrantAdeline Primary Care Provider Unavaila Pricila Herman Unavailable [phone] Reason For Referral No Information Medications Medication [...] Status W/U Status Risk Notes Problem Vomiting (003377892) Vomiting (787.03) Active confirmed Problem Diarrhea (06569210) Diarrhea (787.91) Active confirmed Problem Generalized abdominal pain (390618966) ABDMNAL PAIN GENERALIZED (789.07) Active confirmed Problem Gastroesophageal reflux disease (disorder) (238596363) GERD [Gastroesophage al reflux disease] (530.81) Active confirmed Problem Abnormal weight loss (841100970) Abnormal loss of weight (783.21) Active confirmed Problem Slow transit constipation (88728514) Slow transit constipation (K59.01) Active confirmed Problem Anaya's esophagus (580587634) Barretts esophagus without dysplasia (K22.70) Active confirmed Problem Gastroesophageal reflux disease (disorder) (025638762) Chronic GERD (K21.9) Active confirmed Problem Bleeding per rectum (17102700) Bleeding per rectum (K62.5) Active confirmed Problem Diarrhea (59537187) Diarrhea, unspecified type (R19.7) Active confirmed Problem Vomiting (502774772) Projectile vomiting with nausea (R11.12) Active confirmed Problem Cyclical vomiting syndrome (72381861) Intractable cyclical vomiting with nausea (G43.A1) Active confirmed Plan Of Treatment Pending Test Test Name Order Date *Ova+Parasites Exam, Routine 03/31/2015 MRI:ENTEROGRAPHY 03/31/2015 Gastric emptying study 03/31/2015 CT Abdomen Pelvis with contrast 08/05/20 16 Insurance Providers Payer Name Payer Address Payer Phone Subscriber Number Group Number Insured Name Patient Relationship to Insured Coverage Start Date Coverage End Date Medicare B [facility] Shira daniels [facility] [address] NATACHA Mason [phone] [id number] THALIA DANIELSON Self - patient is the insured Medicaid OF [facility] [address] [place] [address] [phone] [id number] THALIA DANIELSON Self - patient is the insured Medical (General) History Medical History History ICD Code Hypertension Coronary artery disease s/p PCI Depression/ anxiety Hyperlipidemia Surgical History Surgery Date(Month/Year) cardiac stents
--- OUTSIDE RECORDS SUMMARY | 2025-04-17 06:22 | XMS_ITS | Encounter Summary ---
Author Organization [facility] Address [address] [place] [address] Care Team Providers Care Primer Charger Name Role Phone Adeline Guo MD Primary Care Provider [phone]- [phone] Feliciano Evans MD Unavailable Unavailable Yara Harding MD Unavailable [phone] Curt Wiseman MD Primary Care Provider [phone] Encounter Details Date Type Department Care Team (Late st Contact Info) Description 05/31/2022 Scanned Document [facility]surgery [place] [address] [facility] [address] [place] [phone] Monroe Choi MD [address] [facility] [place] [address] [place] [address] Social History Tobacco Use Types Packs/Day Years [...] Description 05/05/2025 1:00 PM EDT Procedure visit [facility]rology [place] [address] [facility] [address] [place] [address] Suman Dudley MD [address] [address] documented as of this encounter Visit Diagnoses Not on filedocumented in this encounter Care Teams Primer Charger Relationship Specialty Start Date End Date Adeline Guo MD 395 [place] [address] PCP - General Internal Medicine 03/10/20 10/13/24 Curt Wiseman MD [address] [place] [address] Dr Garcia [address] [place] [address] PCP - General Family Medicine 10/14/24 Feliciano Evans MD [address] [place] [address] Referring Provider 10/28/20 Yara Harding MD [address] [place] [address] Neurology 03/20/23 Austin Sethi [address] [place] [address] Neurology Neurology 06/07/22 documented as of this encounter
--- OUTSIDE RECORDS SUMMARY | 2025-04-17 06:22 | XMS_ITS | Encounter Summary ---
Author Organization [facility] Address [address] [place] [address] Care Team Providers Care Manager Customer Service Name Role Phone Adeline Guo MD Primary Care Provider +- [phone] Feliciano Evans MD Unavailable Unavailable Yara Harding MD Unavailable [phone] Curt Wiseman MD Primary Care Provider [phone] Encounter Details Date Type Department Care Team (Late st Contact Info) Description 10/28/2021 Scanned Document [facility] Neurosurgery [address] [address] Monroe Choi MD [address] [place] [address] Social History Tobacco Use Types Packs/Day [...] Description 05/05/2025 1:00 PM EDT Procedure visit [facility] Neurology [address] [place] [address] Suman Dudley MD [address] [place] [address] [place] [address] documented as of this encounter Visit Diagnoses Not on filedocumented in this encounter Care Teams Manager Customer Service Relationship Specialty Start Date End Date Adeline Guo MD [address] [place] [address] PCP - General Internal Medicine 03/10/20 10/13/24 Curt Wiseman MD [address] [place] [address] [place] [address] PCP - General Family Medicine 10/14/24 Feliciano Evans MD [address] [place] [address] Referring Provider 10/28/20 Yara Harding MD [address] [place] [address] Neurology 03/20/23 Austin Sethi [address] [place] [address] Neurology Neurology 06/07/22 documented as of this encounter
--- OUTSIDE RECORDS SUMMARY | 2025-04-17 06:22 | XMS_ITS | Encounter Summary ---
Author Organization [facility] Address [address] [place] [address] 7t [place] [address] Care Team Providers Care Middle School Science Teacher Name Role Phone Unavailable Primary Care Provider Unavailabl e Encounter Details Date Type Department Care Team (Latest Contact Info) Description 10/13/2021 Abstract [facility] CONVERSIONS Dental, Provider, DDS Social History [...] Description 08/27/2025 1:00 PM EST Office Visit [facility] CHC ADULT DENTAL [address] [place] [address] Corinne Pedroza documented as of this encounter Visit Diagnoses Not on filedocumented in this encounter
--- OUTSIDE RECORDS SUMMARY | 2025-04-17 06:22 | XMS_ITS | Encounter Summary ---
Author Organization [facility] Address [address] [place] [address] Care Team Providers Care Fabrication Engineer Name Role Phone Curt Wiseman MD Primary Care Provider [phone] Encounter Details Date Type Department Care Team (Late st Contact Info) Description 01/08/2025 Lab Requisition [facility] - Main Lab [address] [facility] [place] [address] Hussein Nix, ANGEL [address] [place] [phone] Urinary tract infection, site not specified Social [...] Urine No growth 01/09/2025 1:14 PM EDT [facility] Urine Urine specimen obtained by clean catch procedure / Unknown 01/08/2025 2:15 PM EDT 01/08/2025 6:02 PM EDT us Hussein [facility] MICROBIOLOGY - GENERAL ORD ERABLES Final Result [facility] [address] [place] [address], documented in this encounter Visit Diagnoses Diagnosis Urinary tract infection, site not specified documented in this encounter Care Teams Fabrication Engineer Relationship Specialty Start Date End Date Curt Wiseman MD PCP - General Family Medicine 07/22/24 documented as of this encounter
--- OUTSIDE RECORDS SUMMARY | 2025-04-17 06:22 | XMS_ITS | Encounter Summary ---
Author Organization [employer] Address [address] [facility] [address] 7t [place] [address] Care Team Providers Care Marking Room Supervisor Name Role Phone Unavailable Primary Care Provider Unavailabl e Reason for Visit * Reason Onset Date Comments instructions 12/28/2022 Dental Pain 12/28/2022 Encounter Details Date Type Department Care Team ([facility] st Contact Info) Description 12/28/2022 Telephone [facility] ADULT DENTAL [address] [place] [address] Glory Burnshan, JANAK [address] [place] [address] instructions; Dental Pain Social History Tobacco Use [...] PM EST Office Visit [facility] ADULT DENTAL [address] [place] [address] Corinne Pedroza documented as of this encounter Visit Diagnoses Not on filedocumented in this encounter
--- OUTSIDE RECORDS SUMMARY | 2025-04-17 06:22 | XMS_ITS | Encounter Summary ---
Author Organization [facility] Address [address] [place] [address] Care Team Providers Care Corporate Banking Officer Name Role Phone Pcp, No Primary Care Provider Adeline Moe MD Primary Care Provider +- [phone] Feliciano Evans MD Unavailable Unavailable Yara Harding MD Unavailable [phone] Curt Wiseman MD Primary Care Provider [phone] Encounter Details Date Type Department Care Team (Late st Contact Info) Description 02/25/2020 Scanned Document [facility] [place] [address] [phone] Monroe Choi MD 85 [facility] [place] [address] [place] [address] Social History Tobacco Use Types Packs/Day Years [...] 1:00 PM EDT Procedure visit [facility] Neu[facility] [address] 6 [place] [address] Suman Dudley MD 35 [facility] 6 [place] [address] documented as of this encounter Visit Diagnoses Not on filedocumented in this encounter Care Teams Corporate Banking Officer Relationship Specialty Start Date End Date Pcp, No [address] [place] [address] PCP - General 11/26/18 03/09/20 Adeline Guo MD [address] [place] [address] PCP - General Internal Medicine 03/10/20 10/13/24 Curt Wiseman MD [address] [place] [address] Dr Garcia [address] [place] [address] PCP - General Family Medicine 10/14/24 Feliciano Evans MD [address] [place] [address] Referring Provider 10/28/20 Yara Harding MD [address] [place] [address] Neurology 03/20/23 Austin Sethi [address] [place] [address] Neurology Neurology 06/07/22 documented as of this encounter
--- OUTSIDE RECORDS SUMMARY | 2025-04-17 06:22 | XMS_ITS | Encounter Summary ---
Author Organization [facility] Address [address] [place] [address] Care Team Providers Care Handwriting Expert Name Role Phone Adeline Guo MD Primary Care Provider +- [phone] Feliciano Evans MD Unavailable Unavailable Yara Harding MD Unavailable [phone] Curt Wiseman MD Primary Care Provider [phone] Encounter Details Date Type Department Care Team (Late Contact Info) Description 05/20/2020 Scanned Document [address] [place] [phone] Provider, Generic Social History Tobacco Use [...] PM EDT Procedure visit [facility] Neurology [address] [place] [address] Suman Dudley MD 35 [facility] [place] 6 [place] [address] documented as of this encounter Visit Diagnoses Not on filedocumented in this encounter Care Teams Handwriting Expert Relationship Specialty Start Date End Date Adeline Guo MD [address] [place] [address] PCP - General Internal Medicine 03/10/20 10/13/24 Curt Wiseman MD [address] [place] [address] [address] [place] [address] PCP - General Family Medicine 10/14/24 Feliciano Evans MD [address] [place] [address] Referring Provider 10/28/20 Yara Harding MD [address] [place] [address] Neurology 03/20/[address] [address] Neurology Neurology 06/07/22 documented as of this encounter
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
--- OUTSIDE RECORDS SUMMARY | 2025-04-17 06:22 | XMS_ITS | Clinical Summary ---
Author Organization [facility] Address [address] [facility] 7t [place] [address] Care Team Providers Care Piano Maker Name Role Phone Unavailable Primary Care [...] Encounters Date Type Department Care Team Description 04/11/2025 2:00 PM EDT Office Visit [facility] ADULT DENTAL [address] [place] [address] Andre Bang 03/11/2025 Telephone [facility] ADULT DENTAL [address] [place] [address] Alex Burns DMD returning call placed yesterday 03/10 dental 03/10/2025 Telephone [facility] ADULT DENTAL [address] [place], [place] [phone] Andre Bang 02/26/2025 2:15 PM EDT Office Visit [facility] ADULT DENTAL [address] [place] [address] SudhakarAlex brasherJANAK 02/24/2025 3:00 PM EDT Office Visit [facility] ADULT DENTAL [address] [place] [address] Andre Bang 02/20/2025 1:00 PM EDT Office Visit [facility] ADULT DENTAL [address] [place] [address] Corinne Pedroza Dental calculus (Primary Dx) from [...] 08/27/2025 1:00 PM EST Office Visit [facility] ADULT DENTAL [address] [place] [address] Corinne Pedroza Health Maintenance Due Date Last [...] COVID-19 Vaccine (9 - Pfizer risk season) 2025 04/12/2024, 05/17/2023, 11/08/2022, Additional history exists Dental Prophylaxis 08/24/2025 02/20/2025, 08/22/2023 Dental X-Ray: Bitewings 02/21/2026 02/21/20, 11/17/2023, 08/22/2023 Tobacco Screening 04/11/2026 04/11/2025 Dental X-Ray: Full Mouth 10/05/2026 10/04/2023 DTaP/Tdap/Td Vaccines (4 - Td or Tdap) 04/01/2034 04/01/2024, 10/13/2022, 05/05/2011 Zoster Vaccines Completed 11/25/2021, 05/07, 02/06/2012 Pneumococcal Vaccine: 50+ Years Completed 12/08/2021, 07/22/2011, 01/07/2002 Influenza Vaccine Completed 04/03/2025, , 05/17/2023, Additional history exists HIB Vaccines Aged Out [...] OFFICE VISIT Routine 04/11/2025 2:00 PM EDT CONSULTATION - DIAGNOSTIC SERVICE PROVIDED [...] Relevant to Health Maintenance Insurance DENTAL - [facility]
== END 2025-04-17 06:19 | disposition home or self-care (01) ==
LOC: CF 06:18
PROVIDERS: Visit Provider Internal Medicine
DX: Z13.89 Encounter for screening for other disorder (principal)

== ENCOUNTER 2025-04-17 11:08 | Outpatient (AMB) | payer MEDICARE, SELFPAY ==
--- OUTSIDE RECORDS SUMMARY | 2025-04-11 14:00 | XMS_ITS | Encounter Summary ---
Author Organization [facility] Address [address] [place] [address] 7 [place] [address] Care Team Providers Care Pot Reliner Name Role Phone Unavailable Primary Care Provider Unavailabl e Reason for Visit * Reason Comments Consult Encounter Details Date Type Department Care Team ([facility] st Contact Info) Description 04/11/2025 2:00 PM EDT Office Visit [facility] ADULT DENTAL [address] [place] [address] Andre Bang [address] [place] [address] Social History Tobacco Use Types Packs/Day Years [...] y.o. male. Time Out: Date: 04/11/2025 Location: [facility] Tooth: #31 Procedure: Implant [place] Verified the above with patient, hearing and speech assistant, and provider. Confirmed via patient's chart, intraorally and by radiographs. Mold Stamper: not applicable Doctor's Note: Pt came to dental office for an evaluation on implant crown sabianism for implant on #31. #31 implant healing [...] Description 08/27/2025 1:00 PM EST Office Visit [facility] ADULT DENTAL [address] [place] [address] Corinne Pedroza documented as of this encounter Procedures Procedure Name Priority Date/Time Associated Diagnosis Comments RE-EVAL - POST-OP OFFICE VISIT Routine 04/11/2025 2:00 PM EDT documented in this encounter Visit Diagnoses Not on filedocumented in this encounter
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
[2025-04-17 11:14] VITALS: BP 139/67; PULSE 66; RESP 16; O2SAT 97; BMI 30.6
[2025-04-17 12:07] VITALS: BP 157/76; PULSE 67; RESP 16; O2SAT 97
--- OUTSIDE RECORDS SUMMARY | 2025-04-17 15:25 | XMS_ITS | Encounter Summary ---
Author Organization [facility] Address [address] [place] [address] Care Team Providers Care Bill Recapitulation Clerk Name Role Phone Adeline Guo MD Primary Care Provider +- [phone] Feliciano Evans MD Unavailable Unavailable Yara Harding MD Unavailable [phone] Curt Wiseman MD Primary Care Provider [phone] Encounter Details Date Type Department Care Team (Late Contact Info) Description 08/05/2020 Scanned Document [facility] Neurosurgery [place] [address] [phone] Monroe Choi MD [address] [address] Social History Tobacco Use Types Packs/Day Years [...] Description 05/05/2025 1:00 PM EDT Procedure visit [facility] Neurology [address] [phone] Suman Dudley MD [address] [place], [place] [address] [address] documented as of this encounter Visit Diagnoses Not on filedocumented in this encounter Care Teams Bill Recapitulation Clerk Relationship Specialty Start Date End Date Adeline Guo MD [address] [place] [address] PCP - General Internal Medicine 03/10/20 10/13/24 Curt Wiseman MD [address] [place] [address] PCP - General Family Medicine 10/14/24 Feliciano Evans MD [address] [place] [address] Referring Provider 10/28/20 Yara Harding MD [address] [place] [address] Neurology 03/20/23 Austin Sethi [address] [place] [address] Neurology Neurology 06/07/22 documented as of this encounter
--- OUTSIDE RECORDS SUMMARY | 2025-04-17 15:25 | XMS_ITS | Encounter Summary ---
Author Organization [facility] Address [address] [place] [address] Care Team Providers Care Watermelon Harvesting Supervisor Name Role Phone Adeline Guo MD Primary Care Provider +- [phone] Feliciano Evans MD Unavailable Unavailable Yara Harding MD Unavailable [phone] Curt Wiseman MD Primary Care Provider [phone] Encounter Details Date Type Department Care Team (Late st Contact Info) Description 10/28/2021 Scanned Document [facility] Neurosurgery [address] [address] Monroe Choi MD [address] [place] [address] Social History Tobacco Use Types Packs/Day [...] [facility] Neurology [address] [place] [address] Suman Dudley MD [address] [address] [place] [address] documented as of this encounter Visit Diagnoses Not on filedocumented in this encounter Care Teams Watermelon Harvesting Supervisor Relationship Specialty Start Date End Date Adeline Guo MD [address] [place] [address] PCP - General Internal Medicine 03/10/20 10/13/24 Curt Wiseman MD [address] [place] [address] [place] [address] PCP - General Family Medicine 10/14/24 Feliciano Evans MD [address] [place] [address] Referring Provider 10/28/20 Yara Harding MD [address] [place] [address] Neurology 03/20/23 Austin Sethi [address] [place] [address] Neurology Neurology 06/07/22 documented as of this encounter
--- OUTSIDE RECORDS SUMMARY | 2025-04-17 15:25 | XMS_ITS | Continuity of Care Document ---
Author Organization [facility] Address [address] [place] [address] Care Team Providers Care Stripper Cutter Machine Name Role Phone Curt Wiseman MD Primary Care Provider Encounters Date Type Department Care Team Description 10/14/2023 [facility] [address] [facility] [address] [place] [address] Austin Sethi MD E-prescribing Refill Request 10/10/2023 Refill [facility] [address] [facility] [address] [place] [address] Austin Sethi MD Refill Request 06/25/2023 [facility]ill [facility] [address] [facility] [address] [place] [address] Austin Sethi MD Med Change Request; Refill Request 05/22/2023 Refill [facility] [address] [facility] [address] [place] [address] Austin Sethi MD E-prescribing Refill Request 03/20/2023 Telephone [facility] [address] [facility] [address] [place] [address] Austin Sethi MD Medication Check 02/20/2023 Refill [facility] [address] [facility] [address] [place] [address] Austin Sethi MD E-prescribing Refill Request 01/10/2023 Refill [facility] [address] [facility] [address] [place] [address] Austin Sethi MD E-prescribing Refill Request 08/08/2022 Refill [facility] [address] [facility] [address] [place] [address] Austin Sethi MD E-prescribing Refill Request 07/25/2022 Telephone [facility] [address] [facility] [address] [place] [address] Austin Sethi MD Appointment 06/07/2022 4:30 PM EDT [facility] [address] [facility] [address] [place] [address] Austin Sethi MD Essential tremor (Primary Dx) 05/23/2022 Refill [facility] [address] [facility] [address] [place] [address] Austin Sethi MD E-prescribing Refill Request 03/11/2022 Telephone [facility] [address] [facility] [address] [place] [address] Austin Sethi MD Follow Up 03/07/2022 8:15 AM EDT Office Visit [facility] [address] [facility] [address] [place] [address] Austin Sethi MD Essential tremor (Primary Dx) 02/22/2022 Telephone [facility] [address] [facility] [address] [place] [address] Austin Sethi MD Appointment 01/19/2022 Telephone [facility] [address] [facility] [address] [place] [address] Austin Sethi MD Follow Up 12/24/2021 Refill [facility] [address] [facility] [address] [place] [address] Austin Sethi MD 12/11/2021 Refill [facility] [address] [facility] [address] [place] [address] Austin Sethi MD E-prescribing Refill Request 11/15/2021 Telephone [facility] [address] [facility] [address] [place] [address] Austin Sethi MD Follow Up (DBS adjustment ) 10/29/2021 4:00 PM EDT [facility] Visit [facility] [address] [facility] [address] [place] [address] Austin Sethi MD Essential tremor (Primary Dx) 10/28/2021 Refill [facility] [address] [facility] [address] [place] [address] Toma Salas MD E-prescribing Refill Request 09/26/2021 Refill [facility] [address] [facility] [address] [place] [address] Austin Sethi MD E-prescribing Refill Request 09/12/2021 Refill [facility] [address] [facility] [address] [place] [address] Austin Sethi MD E-prescribing Refill Request 07/23/2021 Telephone [facility] [address] [facility] [address] [place] [address] Lorna Prado, SONALI Appointment 05/03/2021 3:30 PM EDT [facility] Visit [facility] [address] [facility] [address] [place] [address] Austin Sethi MD Essential tremor (Primary Dx) 04/16/2021 Telephone [facility] [address] [facility] [address] [place] [address] Austin Sethi MD Appointment 01/29/2021 4:45 PM EDT Office Visit [facility] [address] [facility] [address] [place] [address] Austin Sethi MD Essential tremor (Primary Dx) 12/31/2020 Telephone [facility] [address] [facility] [address] [place] [address] Austin Sethi MD Follow Up (DBS) 12/25/2020 Telephone [facility] [address] [facility] [address] [place] [address] Austin Sethi MD Medication Problem (Lorazepam) 12/24/2020 Telephone [facility] [address] [facility] [address] [place] [address] Austin Sethi MD Prior Authorization Request (lorazepam) 12/22/2020 Travel 12/22/2020 4:30 PM EDT Office Visit [facility] [address] [facility] [address] [place] [address] Austin Sethi MD Essential tremor (Primary Dx); PTSD (post-traumatic stress disorder) 12/15/2020 Refill [facility] [address] [facility] [address] [place] [address] Austin Sethi MD Refill Request (Xanax 0.25) 12/10/2020 10:30 AM EDT Office Visit [facility] [address] [facility] [address] [place] [address] Austin Sethi MD Essential tremor (Primary Dx) 12/09/2020 Telephone [facility] [address] [facility] [address] [place] [address] Austin Sethi MD Follow Up (DBS) 12/08/2020 Travel 12/08/2020 8:00 AM EDT Office Visit [facility] [address] [facility] [address] [place] [address] Austin Sethi MD Essential tremor (Primary Dx) 11/25/2020 Telephone [facility] [address] [facility] [address] [place] [address] Austin Sethi MD Other 10/30/2020 Refill [facility] [address] [facility] [address] [place] [address] Austin Sethi MD E-prescribing Refill Request 10/30/2020 Telephone [facility] [address] [facility] [address] [place] [address] Austin Sethi MD Medication Problem (primidone) 10/20/2020 Travel 10/20/2020 8:00 AM EDT Consult (Initial) [facility] [address] [facility] [address] [place] [address] Austin Sethi MD Essential tremor (Primary Dx) 10/01/2020 Telephone [facility] [address] [facility] [address] [place] [address] Austin Sethi MD Appointment 03/13/2018 Orders Only [facility] Cardiology [address] [place] [address] [address] [place] [address] Jorge Pascual DO 03/13/2018 Orders Only [facility] [address] [place] [address] Yamilex Langston NP 03/13/2018 3:30 PM EDT Office Visit [facility] [address] [place] [address] Yamilex Langston NP Preop examination (Primary Dx); Gastroesophageal reflux disease, esophagitis presence not specified; Hyperlipidemia, unspecified hyperlipidemia type; Hypertension, unspecified type; Benign prostatic hyperplasia, unspecified whether lower urinary tract symptoms present; Mood disorder; RLS (restless legs syndrome); SAMMIE (obstructive sleep apnea) 03/13/2018 3:00 PM EDT Nurse Visit [facility] [address] [place] [address] Poonam Pedersen, RN Gastroesophageal reflux disease, esophagitis presence not specified (Primary Dx) 02/19/2018 2:45 PM EDT Consult (Initial) [facility] General Surgery [address] [facility] [address] [place] [address] Trevor Lo MD Gastroesophageal reflux disease without [...] Not on file Procedures * Due to [place] state law, this organization might not [...] XRAY ESOPHAGUS 11/14/2017 Results * Due to [place] state law, this organization might not [...] EDT 03/13/2018 8:44 PM EDT Yamilex Langston MATCHER CARDIOVASCULAR-WITH INBSK T RTG Final Result Performing Organization Address City/[facility]/ZIP Co de Phone Number [facility] E[facility] * PROTHROMBIN TIME (PT) (INR), BLOOD (03/13/2018 4:11 PM EDT) INR 1.0 [facility] Comment: Reference Range 0.9-1.1 Moderate-intensity Warfarin Therapy 2.0-3.0 Higher-intensity Warfarin Therapy 3.0-4.0 PT 10.7 9.0 - 11.5 sec [facility] Comment: For more information on this test, go to: [email or web address].Storage [email or web address] 03/13/2018 4:11 PM EDT 03/13/2018 9:37 PM EDT Narrative Resulting Agency Comment [id number] us Yamilex Langston MATCHER LAB SAME DAY RESULT Final Result [facility] [address] [place] [address] * CBC INCLUDES DIFFERENTIAL AND PLATELET COUNT [...] 9:37 PM EDT Narrative Resulting Agency Comment [id number] Yamilex Langston MATCHER LAB SAME DAY RESULT Final Result [facility] [address] [place] [address] * HEPATIC FUNCTION PANEL (ALT,AST,ALK PH,BILI'S,TP,ALB) (03/13/2018 [...] 9:37 PM EDT Narrative Resulting Agency Comment [id number] Yamilex Langston MATCHER LABORATORY Final Res ult [facility] [address] [place] [address] * BASIC METABOLIC PANEL WITH (GFR) (03/13/2018 4:11 PM EDT) Glucose 98 65 - 99 mg/dL [facility] Comment:Fasting reference in terval Urea Nitrogen Blood (BUN) 20 7 - 25 mg/dL [facility] Creatinine 1.05 0.70 - 1.25 mg/dL [facility] Comment: For patients >49 years of age, the reference limit for Creatinine is approximately 13% higher for people identified as -Danish. GFR 74 > OR = 60 mL/min/1 [...] needs for GFR calculation. Resulting Agency Comment [id number] Yamilex Langstno M[facility] LABORATORY Final Res ult [facility] [address] [place] [address] * XRAY ESOPHAGUS (11/14/2017) 11/14/2017 us Pricila [...] specified forms of tremor 06/07/2022 Care Teams Stripper Cutter Machine Relationship Specialty Start Date End Date Curt Wiseman MD [address] [address] PCP - General Family Medicine 02/10/21
--- OUTSIDE RECORDS SUMMARY | 2025-04-17 15:25 | XMS_ITS | Clinical Summary ---
Author Organization [facility] Address [address] [place] [address] Care Team Providers Care Turner Splitter Machine Operator Name Role Phone Adeline Locke Primary [...] this topic Medical Devices Implanted Type Area Piece Cutter Device Identifier Shelf Expiration Date Model / Serial / Lot Baseplate Reverse Shoulder Prosthesis With P2 Coating 30mm - [id number] Implanted:Qty: 1 on 07/12/2019 by Andrew Butler MD at [facility] Implant [employer] 05/03/2025 [id number] / / [id number] Head Glenoid With Retaining Screw [place] Shoulder Prosthesis Neutral 32mm - [id number] Implanted:Qty: 1 on 07/12/2019 by Andrew Butler MD at [facility] Implant [employer] 04/09/2025 [id number] / / [id number] Insert Socket Humeral Standard Hxe-Plus Rsp Sterile [id number] - [id number] Implanted:Qty: 1 on 07/12/2019 by Andrew Butler MD at [facility] Implant [employer] 05/31/2023 [id number] / / [id number] Stem Humeral Standard Reverse Shoulder Prosthesis [id number] - [id number] Implanted:Qty: 1 on 07/12/2019 by Andrew Butler MD at [facility] Implant [employer] 07/12/2024 [id number] / / [id number] Screw Locking Reverse Shoulder Prosthesis [id number] - [id number] Implanted:Qty: 1 on 07/12/2019 by Andrew Butler MD at [facility] Screw [employer] 03/24/2025 506-03-130 / / [id number] Screw Locking Bone Reverse Shoulder Prosthesis [id number] - [id number] Implanted:Qty: 1 on 07/12/2019 by Andrew Butler MD at [facility] Screw [employer] 04/19/2025 [id number] / / [id number] Screw Locking Reverse Shoulder Prosthesis [id number] - [id number] Implanted:Qty: 1 on 07/12/2019 by Andrew Butler MD at [facility] Screw [employer] 02/27/2025 506-03-130 / / [id number] Insurance [facility] Advance Directives * Full Code (Latest Code Status on File) Date Activated Date Inactivated Comments 07/12/2019 1:40 PM 07/13/2019 8:20 PM * Full Code Date Activated Date Inactivated Comments 07/12/2019 6:13 AM 07/12/2019 1:40 PM Care Teams Turner Splitter Machine Operator Relationship Specialty Start Date End Date Adeline Locke PCP - General Pediatrics 11/14/17
--- OUTSIDE RECORDS SUMMARY | 2025-04-17 15:25 | XMS_ITS | Clinical Summary ---
Author Organization [facility] Address [address] [address] Phone Care Team Providers Care Tester Regulator Name Role Phone Adeline Guo MD Primary [...] REPLACEMENT MEDICARE REPLACEMENT MEDICARE REPLACEMENT Care Teams Tester Regulator Relationship Specialty Start Date End Date Adeline Guo MD [address] [place] [address] PCP - General Pediatrics 10/01/19 Additional Source Comments The information contained in this document represents components of the legal health record. It is not the complete legal health record.[facility]
--- OUTSIDE RECORDS SUMMARY | 2025-04-17 15:25 | XMS_ITS | Encounter Summary ---
Author Organization [facility] Address [address] [place] [address] Care Team Providers Care Remediation Technician Name Role Phone Adeline Guo MD Primary Care Provider +- [phone] Feliciano Evans MD Unavailable Unavailable Yara Harding MD Unavailable [phone] Curt Wiseman MD Primary Care Provider [phone] Encounter Details Date Type Department Care Team (Late Contact Info) Description 05/20/2020 Scanned Document [address] [place] [address] Provider, Generic Social History Tobacco Use [...] Description 05/05/2025 1:00 PM EDT Procedure visit [facility] Neurology [address] [place] [address] Suman Dudley MD 35 [facility] [address] [place] [address] documented as of this encounter Visit Diagnoses Not on filedocumented in this encounter Care Teams Remediation Technician Relationship Specialty Start Date End Date Adeline Guo MD [address] [place] [address] PCP - General Internal Medicine 03/10/20 10/13/24 Curt Wiseman MD [address] [place] [address] [address] [place] [address] PCP - General Family Medicine 10/14/24 Feliciano Evans MD [address] [place] [address] Referring Provider 10/28/20 Yara Harding MD [address] [place] [address] Neurology 03/20/[address] [address] Neurology Neurology 06/07/22 documented as of this encounter
--- OUTSIDE RECORDS SUMMARY | 2025-04-17 15:25 | XMS_ITS | Encounter Summary ---
Author Organization [facility] Address [address] [place] [address] Care Team Providers Care Developmental Mathematics Instructor Name Role Phone Adeline Guo MD Primary Care Provider +[phone]- [phone] Feliciano Evans MD Unavailable Unavailable Yara Harding MD Unavailable [phone] Curt Wiseman MD Primary Care Provider +[phone] Encounter Details Date Type Department Care Team (Late Contact Info) Description 05/10/2022 Scanned Document [facility] NEUROSURGERY SCAN Neurosurgery, Scan Social History Tobacco [...] Care Team ([facility] Contact Info) Description 05/05/2025 1:00 PM EDT Procedure visit [facility] Neurology [address] 6 [place] [phone] Suman Dudley MD 35 [facility] [address] [place] [address] documented as of this encounter Visit Diagnoses Not on filedocumented in this encounter Care Teams Developmental Mathematics Instructor Relationship Specialty Start Date End Date Adeline Guo MD 395 [place] [address] PCP - General Internal Medicine 03/10/20 10/13/24 Curt Wiseman MD [address] [place] [address] 104 [place] [address] PCP - General Family Medicine 10/14/24 Feliciano Evans MD [address] [place] [address] Referring Provider 10/28/20 Yara [place]ing MD [address] [place] [address] Neurology 03/20/[address] [place] [address] [address] Neurology Neurology 06/07/22 documented as of this encounter
--- OUTSIDE RECORDS SUMMARY | 2025-04-17 15:25 | XMS_ITS | Encounter Summary ---
Author Organization [facility] Address [address] [place] [address] Phone Care Team Providers Care Testing Coordinator Name Role Phone Adeline Guo MD Primary Care Provider + Encounter Details Date Type Department Care Team (Late st Contact Info) Description 01/22/2024 Ancillary Orders [facility] [address] Alex Garza MD [address] [place] [address], [address] [place] [address] [email or web address] Chronic pain of both knees (Primary Dx) [...] clinician's provided indication for this examination in [facility]: Pain COMPARISON: XR KNEE 4 [...] clinician's provided indication for this examination in [facility]:Pain COMPARISON: XR KNEE 4 OR [...] Primary documented in this encounter Care Teams Testing Coordinator Relationship Specialty Start Date End Date Adeline Guo MD [address] [place] [address] PCP - General Pediatrics 10/01/19 documented as of this encounter Additional Source Comments The information contained in this document represents components of the legal health record. It is not the complete legal health record.[facility]
--- OUTSIDE RECORDS SUMMARY | 2025-04-17 15:25 | XMS_ITS | Encounter Summary ---
Author Organization [facility] Address [address] [place] [address] Care Team Providers Care Manager Income Tax Name Role Phone Adeline Guo MD Primary Care Provider +- [phone] Feliciano Evans MD Unavailable Unavailable Yara Harding MD Unavailable [phone] Curt Wiseman MD Primary Care Provider [phone] Encounter Details Date Type Department Care Team (Late st Contact Info) Description 07/19/2024 Telephone [facility] Neurology [address] [phone] Suman Dudley MD [address] [place] [address] Social History Tobacco Use Types Packs/Day Years [...] [facility] Neurology [address] [address] Suman Dudley MD [address] [place] [address] documented as of this encounter Visit Diagnoses Not on filedocumented in this encounter Care Teams Manager Income Tax Relationship Specialty Start Date End Date Adeline Guo MD [address] [place] [address] PCP - General Internal Medicine 03/10/20 10/13/24 Curt Wiseman MD [address] [place] [address] [place] [address] PCP - General Family Medicine 10/14/24 Feliciano Evans MD 395 [place] [address] Referring Provider 10/28/20 Yara [place]ing MD 395 [place] [address] Neurology 03/20/[address] [place] [address] [address] Neurology Neurology 06/07/22 documented as of this encounter
--- OUTSIDE RECORDS SUMMARY | 2025-04-17 15:25 | XMS_ITS | Encounter Summary ---
Author Organization [facility] Address [address] [place] [address] Care Team Providers Care Plant Maintenance Engineer Name Role Phone Adeline Guo MD Primary Care Provider +- [phone] Feliciano Evans MD Unavailable Unavailable Yara [place]ing MD Unavailable [phone] Curt Wiseman MD Primary Care Provider [phone] Encounter Details Date Type Department Care Team (Late st Contact Info) Description 05/20/2021 Scanned Document [facility] Neurosurgery [place] [address] [facility] [address] [place] [phone] Monroe Choi MD 85 [facility] [place] [address] [place] [address] Social History Tobacco Use Types Packs/Day Years [...] Description 05/05/2025 1:00 PM EDT Procedure visit [facility] Neurology [place] 35 [facility] [address] [place] [address] Suman Dudley MD [address] [address] documented as of this encounter Visit Diagnoses Not on filedocumented in this encounter Care Teams Plant Maintenance Engineer Relationship Specialty Start Date End Date Adeline Guo MD [address] [place] [address] PCP - General Internal Medicine 03/10/20 10/13/24 Curt Wiseman MD [address] [place] [address] Dr Garcia [address] [place] [address] PCP - General Family Medicine 10/14/24 Feliciano Evans MD [address] [place] [address] Referring Provider 10/28/20 Yara [place]ing MD [address] [place] [address] Neurology 03/20/23 [place] Sethi [address] [place] [address] Neurology Neurology 06/07/22 documented as of this encounter
--- OUTSIDE RECORDS SUMMARY | 2025-04-17 15:25 | XMS_ITS | Encounter Summary ---
Author Organization [facility] Address [address] [place] [address] Care Team Providers Care Media Sales Consultant Name Role Phone Adeline Guo MD Primary Care Provider +- [phone] Feliciano Evans MD Unavailable Unavailable Yara [place] MD Unavailable [phone] Curt Wiseman MD Primary Care Provider [phone] Encounter Details Date Type Department Care Team (Late Contact Info) Description 04/07/2020 Scanned Document [facility] Neurosurgery [place] 85 [facility] [address] [place] [phone] Monroe Choi MD 85 [facility] [place] [address] [place] [address] Social History Tobacco Use Types Packs/Day Years [...] [facility] Neurology [place] 35 [facility] [address] [place] [phone] Suman Dudley MD [address] [place] [address] [place] [address] documented as of this encounter Visit Diagnoses Not on filedocumented in this encounter Care Teams Media Sales Consultant Relationship Specialty Start Date End Date Adeline Guo MD 395 [place] [address] PCP - General Internal Medicine 03/10/20 10/13/24 Curt Wiseman MD [address] [place] [address] Dr [address] [place] [address] PCP - General Family Medicine 10/14/24 Feliciano Evans MD [address] [place] [address] Referring Provider 10/28/20 Yara [place]ing MD [address] [place] [address] Neurology 03/20/[address] [address] Neurology Neurology 06/07/22 documented as of this encounter
--- OUTSIDE RECORDS SUMMARY | 2025-04-17 15:25 | XMS_ITS | Encounter Summary ---
Author Organization [facility] Address [address] [place] [address] Care Team Providers Care Die Attacher Name Role Phone Adeline Locke Primary Care Provider Unavailable Reason for Visit * Reason Onset Date Comments Neurology apt with Dr. Kitchen 11/30/2021 Encounter Details Date Type Department Care Team (Late st Contact Info) Description 11/30/2021 Telephone [facility] [address] [place] [address] [phone] Telephone Intake, Staff Neurology apt with Dr. [...] scheduling. A good call back number is [phone]. documented in this encounter Plan of Treatment Not on file documented as of this encounter Visit Diagnoses Not on filedocumented in this encounter Care Teams Die Attacher Relationship Specialty Start Date End Date Adeline Locke PCP - General Pediatrics 11/14/17 documented as of this encounter
--- OUTSIDE RECORDS SUMMARY | 2025-04-17 15:25 | XMS_ITS | Encounter Summary ---
Author Organization [facility] Address [address] [place] [address] Care Team Providers Care Brand Sales Consultant Name Role Phone Adeline Guo MD Primary Care Provider +- [phone] Feliciano Evans MD Unavailable Unavailable Yara [place] MD Unavailable [phone] Curt Wiseman MD Primary Care Provider [phone] Encounter Details Date Type Department Care Team (Late Contact Info) Description 04/08/2020 Scanned Document [address] [phone] Monroe Choi MD [address] [place] [address] Social History Tobacco Use Types Packs/Day Years [...] [facility] Neurology [place] 35 [facility] [address] [place] [phone] Suman Dudley MD [address] [address] documented as of this encounter Visit Diagnoses Not on filedocumented in this encounter Care Teams Brand Sales Consultant Relationship Specialty Start Date End Date Adeline Guo MD 395 [place] [address] PCP - General Internal Medicine 03/10/20 10/13/24 Curt Wiseman MD [address] [place] [address] Dr [address] [place] [address] PCP - General Family Medicine 10/14/24 Feliciano Evans MD [address] [place] [address] Referring Provider 10/28/20 Yara [place]ing MD [address] [place] [address] Neurology 03/20/[address] [address] Neurology Neurology 06/07/22 documented as of this encounter
--- OUTSIDE RECORDS SUMMARY | 2025-04-17 15:25 | XMS_ITS | Encounter Summary ---
Author Organization [facility] Address [address] [place] [address] Care Team Providers Care Goodwill Representative Name Role Phone Pcp, No Primary Care Provider Adeline Moe MD Primary Care Provider +- [phone] Feliciano Evans MD Unavailable Unavailable Yara [place] MD Unavailable [phone] Curt Wiseman MD Primary Care Provider [phone]- [phone] Encounter Details Date Type Department Care Team (Late st Contact Info) Description 02/25/2020 Scanned Document [facility] Neurosurgery [place] [address] [phone] Monroe Choi MD 85 [facility] [place] [address] [place] [address] Social History Tobacco Use Types Packs/Day Years [...] EDT Procedure visit [facility] Neurology [address] 6 [place] [address] Suman Dudley MD 35 [facility] 6 [place] [address] documented as of this encounter Visit Diagnoses Not on filedocumented in this encounter Care Teams Goodwill Representative Relationship Specialty Start Date End Date Pcp, No [address] [place] [address] PCP - General 11/26/18 03/09/20 Adeline Guo MD 395 [place] [address] PCP - General Internal Medicine 03/10/20 10/13/24 Curt Wiseman MD [address] [place] [address] Dr Garcia [address] [place] [address] PCP - General Family Medicine 10/14/24 Feliciano Evans MD [address] [place] [address] Referring Provider 10/28/20 Yara [place] MD [address] [place] [address] Neurology 03/20/23 [place] Sethi [address] [place] [address] Neurology Neurology 06/07/22 documented as of this encounter
--- OUTSIDE RECORDS SUMMARY | 2025-04-17 15:25 | XMS_ITS | Encounter Summary ---
Author Organization [facility] Address [address] [place] [address] Phone Care Team Providers Care Reinforcing Iron And Rebar Workers Name Role Phone Adeline Guo MD Primary Care Provider + Encounter Details Date Type Department Care Team (Late st Contact Info) Description 01/22/2024 Ancillary Orders [facility]'[address] [address] Alex Garza MD [address] [place] [address], [address] [place] [address] [email or web address] Chronic pain of both knees (Primary [...] Primary documented in this encounter Care Teams Reinforcing Iron And Rebar Workers Relationship Specialty Start Date End Date Adeline Guo MD 4 [place] [address] PCP - General Pediatrics 10/01/19 documented as of this encounter Additional Source Comments The information contained in this document represents components of the legal health record. It is not the complete legal health record.[facility]
--- OUTSIDE RECORDS SUMMARY | 2025-04-17 15:25 | XMS_ITS | Clinical Summary ---
Author Organization [facility] Address [address] [place] [address] Care Team Providers Care Spare Parts Clerk Name Role Phone Feliciano Evans MD Unavailable Unavailable Yara [place] MD Unavailable Curt Wiseman MD Primary Care Provider [phone]- [phone] Allergies Active Allergy Reactions Criticality Noted Date [...] total) under the tongue. Active Multiple Vitamin (Daily-Estfeany Multivitamin) Tab Take 1 tablet by mouth. [...] 2024 Entered By: REJI BERNARD Comment: Agent Locke Registry Exam 02/20/24 Feb 20, 2024 Entered By: REJI BERNARD Comment: Agent Locke Exposure, [facility], [facility] 1969- Generalized abdominal pain 10/14/2024 Melena [...] deep brain stimulator placement 02/04 Overview (09/24/2021): [employer], Linear lead, right chest Postoperative visit [...] [facility] Neurology [address] [phone] Suman Dudley MD Essential tremor [...] [facility] [place] 35 [facility] [address] [place] [phone] Suman Dudley MD 35 [facility] 6 [place] [address] Health Maintenance Due Date Last Done Comments [...] this topic Medical Devices Implanted Type Area Biomaterials Engineer Device Identifier Shelf Expiration Date Model / Serial / Lot [id number] Extension Neurostimulator 60cm 1.3-3.8mm 1.5mm Std Qdpl Dist - [id number] Implanted:Qty: 1 on 11/25/2020 by Monroe Choi MD at [facility] Cerebral [employer] MINIMALLY INVASIVE T 09/10/2023 [id number] / [id number] / [id number] Extension Neurostimulator 60cm 1.3-3.8mm 1.5mm Std Qdpl Dist - [id number] Implanted:Qty: 1 on 11/25/2020 by Monroe Choi MD at [facility] Cerebral [employer] MINIMALLY INVASIVE T 01/31/2024 [id number] / [id number] 2V / [id number] Screw Bone Mdfc 5mm 1.5mm Self Drill Htorq Xdr Grn Chano - [id number] Implanted:Qty: 4 on 11/04/2020 by Monroe Choi MD at [facility] Maxillofacial Cranial [employer] [id number] / / [id number] Lead Neurostimulator Strg Cylinder Firm Deep Brn Stm - [id number] Implanted:Qty: 1 on 11/04/2020 by Monroe Choi MD at [facility] Stimulator Right: Brain [employer] MINIMALLY INVASIVE T 05/25/2024 3387S-40 / / [id number]-40 Lead Neurostimulator Strg Cylinder Firm Deep Brn Stm - [id number] Implanted:Qty: 1 on 11/04/2020 by Monroe Choi MD at [facility] Stimulator [employer] MINIMALLY INVASIVE T 3387S-40 / / [id number] Neurostimulator Implantable 68mm X 51mm Percept 2 Chnl 61g - [id number] Implanted:Qty: 1 on 11/25/2020 by Monroe Choi MD at [facility] Stimulator [employer] MINIMALLY INVASIVE T 08/20/2022 [id number] / [id number] 1H / [id number] Roofer Applicator Neurostimulator Patient Percept Pc Device - [id number] Implanted:Qty: 1 on 11/25/2020 by Monroe Choi MD at [facility] Stimulator [employer] MINIMALLY INVASIVE T [id number] / / [id number] Kit Stimulator Tunnel Deep Brn Stm - [id number] Implanted:Qty: 1 on 11/25/2020 by Monroe Choi MD at [facility] Stimulator [employer] MINIMALLY INVASIVE T [id number] / / [id number] Filler Bone Void 10cc 20cc Calcium Slf Stimulan Rpd Cure Kit - [id number] Implanted:Qty: 1 on 11/04/2020 by Monroe Choi MD at [facility] Void Filler N/A: Brain [employer] - A BTG INT 12/04/2022 620-010 / / [id number] 620-010 Filler Bone Void 10cc 20cc Calcium Slf Stimulan Rpd Cure Kit - [id number] Implanted:Qty: 1 on 11/25/2020 by Monroe Choi MD at [facility] Void Filler Right: Chest [employer] - A BTG INT 12/04/2022 620-010 / / [id number] Description:mixed with 1 gm vancomycin powder and 1.2gm tobramycin powder Explanted Type Area Biomaterials Engineer Device Identifier Shelf Expiration Date Model / Serial / Lot 70-It-Ar5p Electrode Neurostimulator Star [employer]edy Microtarget[employer] Dzap - [id number] Explanted:Qty: 1 on 11/04/2020 by Monroe Choi MD at [facility] Stimulator Brain [employer] 10/15/2021 70-IT-AR 5P / / [id number] 66-It-Ar4p Electrode Neurostimulator Microtargeting Unilateral - [id number] Explanted:Qty: 1 on 11/04/2020 by Monroe Choi MD at [facility] Stimulator Brain [employer] 02/25/2023 66-IT-AR 4P / / [id number] Cable Neurostimulator Twstlk Scrn Sterl Lf - [id number] Explanted:Qty: 1 on 11/04/2020 by Monroe Choi MD at [facility] Stimulator Right: Brain [employer] MINIMALLY INVASIVE T 09/03/2024 3550-68 / / [id number] Description:NOT AN IMPLANT Insurance [facility] Advance Directives * Full Code (Latest Code Status on File) Date Activated Date Inactivated Comments 11/25/2020 8:30 AM * Full Code Date Activated Date Inactivated Comments 11/04/2020 4:31 PM 11/25/2020 7:56 AM Care Teams Spare Parts Clerk Relationship Specialty Start Date End Date Curt Wiseman MD [address] [place] [address] Dr Dela CruzkeMEGAN [address] PCP - General Family Medicine 10/14/24 Feliciano Evans MD Referring Provider 10/28/20 Yara [place]ing MD Neurology 03/20/23 [place] Sethi [address] [place] [address] Neurology Neurology 06/07/22
--- OUTSIDE RECORDS SUMMARY | 2025-04-17 15:26 | XMS_ITS | Encounter Summary ---
Author Organization [facility] Address [address] [place] [address] Care Team Providers Care Health Officer Name Role Phone Adeline Guo MD Primary Care Provider +- [phone] Feliciano Evans MD Unavailable Unavailable Yara [place] MD Unavailable [phone] Curt Wiseman MD Primary Care Provider [phone] Encounter Details Date Type Department Care Team (Late Contact Info) Description 06/01/2022 Scanned Document [facility] Neurosurgery [address] [place] [phone] Neurosurgery, Scan Social History Tobacco Use [...] Upcoming Encounters Date Type Department Care Team ([facility] Contact Info) Description 05/05/2025 1:00 PM EDT Procedure visit [facility] Neurology [address] [address] Suman Dudley MD [address] [address] documented as of this encounter Visit Diagnoses Not on filedocumented in this encounter Care Teams Health Officer Relationship Specialty Start Date End Date Adeline Guo MD [address] [place] [address] PCP - General Internal Medicine 03/10/20 10/13/24 Curt Wiseman MD [address] [place] [address] Dr Garcia [address] [place] [address] PCP - General Family Medicine 10/14/24 Feliciano Evans MD [address] [place] [address] Referring Provider 10/28/20 Yara [place] MD [address] [place] [address] Neurology 03/20/23 [place] Sethi [address] [place] [address] Neurology Neurology 06/07/22 documented as of this encounter
--- OUTSIDE RECORDS SUMMARY | 2025-04-17 15:26 | XMS_ITS | Encounter Summary ---
Author Organization [facility] Address [address] [place] [address] Care Team Providers Care Staff Design Engineer Name Role Phone Adeline Guo MD Primary Care Provider [phone]- [phone] Curt Wiseman MD Primary Care Provider [phone]- [phone] Encounter Details Date Type Department Care Team ([facility] st Contact Info) Description 03/13/2018 Orders Only [facility] Pre-Admission Testing [address] [place] [address] Yamilex Langston NP Social History Tobacco Use [...] 03/13/2018 8:44 PM EDT us Yamilex Langston GRID TRIMMER CARDIOVASCULAR-WITH INBSK T RTG Final Result MUSE EKG SYSTEM * PROTHROMBIN TIME (PT) (INR), BLOOD (03/13/2018 4:11 PM EDT) Pathologist [facility] INR 1.0 [facility] Comment: Reference Range 0.9-1.1 Moderate-intensity Warfarin Therapy 2.0-3.0 Higher-intensity Warfarin Therapy 3.0-4.0 PT 10.7 9.0 - 11.5 sec [facility] Comment: For more information on this test, go to: http://education.[email or web address]/faq/[email or web address] 03/13/2018 4:1 1 PM EDT 03/13/2018 9:37 PM EDT Narrative Resulting Agency Comment [id number] Yamilex Langston NP LAB SAME DAY RESULT Final Result Performing Organization Address [facility] de Phone Number [facility] [address] [place] [address] * HEPATIC FUNCTION PANEL (ALT,AST,ALK PH,BILI'S,TP,ALB) (03/13/2018 [...] 9:37 PM EDT Narrative Resulting Agency Comment [id number] Yamilex Langston GRID TRIMMER LABORATORY Final Res ult Performing Organization Address [facility]/ZIP Co de Phone Number [facility] [address] [place] [address] * CBC INCLUDES DIFFERENTIAL AND PLATELET COUNT [...] 9:37 PM EDT Narrative Resulting Agency Comment [id number] Yamilex Langston GRID TRIMMER LAB SAME DAY RESULT Final Result Performing Organization Address City/[facility]/ZIP Co de Phone Number [facility] [address] [place] [address] * BASIC METABOLIC PANEL WITH (GFR) (03/13/2018 4:11 PM EDT) Pathologist [facility] Glucose 98 65 - 99 mg/dL [facility] Comment:Fasting reference in terval Urea Nitrogen Blood (BUN) 20 7 - 25 mg/dL [facility] Creatinine 1.05 0.70 - 1.25 mg/dL [facility] Comment: For patients >49 years of age, the reference limit for Creatinine is approximately 13% higher for people identified as -Azerbaijani. GFR 74 > OR = 60 mL/min/1 [...] needs for GFR calculation. Resulting Agency Comment [id number] us Yamilex Langston GRID TRIMMER LABORATORY Final Res ult [facility] [address] [place] [address] documented in this encounter Visit Diagnoses Diagnosis Preop examination Preoperative examination, unspecified Gastroesophageal reflux disease, esophagitis presence not specified Hyperlipidemia, unspecified hyperlipidemia type Hypertension, unspecified type Benign prostatic hyperplasia, unspecified whether lower urinary tract symptoms present Mood disorder Unspecified episodic mood disorder RLS (restless legs syndrome) Restless legs syndrome (RLS) documented in this encounter Care Teams Staff Design Engineer Relationship Specialty Start Date End Date Adeline Guo MD [address] [address] PCP - General Internal Medicine 11/30/17 02/09/21 Curt Wiseman MD [address] [place] [address] PCP - General Family Medicine 02/10/21 documented as of this encounter
--- OUTSIDE RECORDS SUMMARY | 2025-04-17 15:26 | XMS_ITS | Encounter Summary ---
Author Organization [facility] Address [address] [place] [address] Care Team Providers Care Seafood Service Team Member Name Role Phone Adeline Guo MD Primary Care Provider [phone]- [phone] Feliciano Evans MD Unavailable Unavailable Yara Harding MD Unavailable [phone] Curt Wiseman MD Primary Care Provider [phone] Encounter Details Date Type Department Care Team (Late st Contact Info) Description 10/30/2020 Scanned Document [facility] Neurology [address] [place] [phone] Angelica Zuluaga, [facility] 35 [facility] [address] [place] [phone] Social History Tobacco Use Types Packs/Day Years [...] Procedure visit [facility] 35 [facility] 6 [place] [address] Suman Dudley MD [address] [address] documented as of this encounter Visit Diagnoses Not on filedocumented in this encounter Care Teams Seafood Service Team Member Relationship Specialty Start Date End Date Adeline Guo MD 395 [place] [address] PCP - General Internal Medicine 03/10/20 10/13/24 Curt Wiseman MD [address] [place] [address] Dr Garcia [address] [place] [address] PCP - General Family Medicine 10/14/24 Feliciano Evans MD 395 [place] [address] Referring Provider 10/28/20 Yara Harding MD 395 [place] [address] Neurology 03/20/23 Austin Sethi [address] [place] [address] Neurology Neurology 06/07/22 documented as of this encounter
--- OUTSIDE RECORDS SUMMARY | 2025-04-17 15:26 | XMS_ITS | Encounter Summary ---
Author Organization [employer] [facility] Address [address] [place] [address] 7t [place] [address] Care Team Providers Care Station Detective Name Role Phone Unavailable Primary Care Provider Unavailabl e Encounter Details Date Type Department Care Team (Latest Contact Info) Description 10/13/2021 Abstract [facility] CONVERSIONS Dental, Provider, DDS Social History [...] Description 08/27/2025 1:00 PM EST Office Visit [facility] ADULT DENTAL [address] [place] [address] Corinne Pedroza documented as of this encounter Visit Diagnoses Not on filedocumented in this encounter
--- OUTSIDE RECORDS SUMMARY | 2025-04-17 15:26 | XMS_ITS | Encounter Summary ---
Author Organization [facility] Address [address] [place] [address] Care Team Providers Care Hose Suspender Cutter Name Role Phone Adeline Guo MD Primary Care Provider +- [phone] Feliciano Evans MD Unavailable Unavailable Yara Harding MD Unavailable [phone] Curt Wiseman MD Primary Care Provider [phone] Encounter Details Date Type Department Care Team (Late st Contact Info) Description 07/19/2022 Telephone [facility] Neurology [address] [place] [address] Yara Harding MD [facility] [address] [place] [address] Social History Tobacco Use Types Packs/Day Years [...] PM EDT Procedure visit [facility]l 35 [facility] 6 [place] [address] Suman Dudley MD [address] [address] documented as of this encounter Visit Diagnoses Not on filedocumented in this encounter Care Teams Hose Suspender Cutter Relationship Specialty Start Date End Date Adeline Guo MD 395 [place] [address] PCP - General Internal Medicine 03/10/20 10/13/24 Curt Wiseman MD [address] [place] [address] Dr Garcia [address] [place] [address] PCP - General Family Medicine 10/14/24 Feliciano Evans MD 395 [place] [address] Referring Provider 10/28/20 Yara Harding MD 395 [place] [address] Neurology 03/20/23 Austin Sethi [address] [place] [address] Neurology Neurology 06/07/22 documented as of this encounter
--- OUTSIDE RECORDS SUMMARY | 2025-04-17 15:26 | XMS_ITS | Encounter Summary ---
Author Organization [facility] Address [address] [place] [address] Care Team Providers Care Firer Locomotive Crane Name Role Phone Adeline Guo MD Primary Care Provider +- [phone] Feliciano Evans MD Unavailable Unavailable Yara Harding MD Unavailable [phone] Curt Wiseman MD Primary Care Provider [phone] Encounter Details Date Type Department Care Team (Late st Contact Info) Description 05/31/2022 Scanned Document [facility] Neurosurgery [place] 85 [facility] [address] [place] [phone] Monroe Choi MD 85 [facility] [place] [address] [place] [address] Social History Tobacco Use Types Packs/Day Years [...] 05/05/2025 1:00 PM EDT Procedure visit [facility] Neurology Jl 35 [facility] [address] [place] [address] Suman Dudley MD [address] [address] documented as of this encounter Visit Diagnoses Not on filedocumented in this encounter Care Teams Firer Locomotive Crane Relationship Specialty Start Date End Date Adeline Guo MD 395 [place] [address] PCP - General Internal Medicine 03/10/20 10/13/24 Curt Wiseman MD [address] [place] [address] Dr Garcia [address] [place] [address] PCP - General Family Medicine 10/14/24 Feliciano Evans MD 395 [place] [address] Referring Provider 10/28/20 Yara Harding MD [address] [place] [address] Neurology 03/20/23 Austin Sethi [address] [place] [address] Neurology Neurology 06/07/22 documented as of this encounter
--- OUTSIDE RECORDS SUMMARY | 2025-04-17 15:26 | XMS_ITS | Encounter Summary ---
Author Organization [facility] Address 75 [facility] 7t [place] [address] Care Team Providers Care Preschool Disability Teacher Name Role Phone Unavailable Primary Care Provider Unavailabl e Encounter Details Date Type Department Care Team (Late st Contact Info) Description 03/18/2024 Telephone [facility] ADULT DENTAL 230 [place] [address] Dipti Rosenthal [address] [place] [address] Social History Tobacco Use Types Packs/Day Years [...] Description 08/27/2025 1:00 PM EST Office Visit [facility] ADULT DENTAL [address] [place] [address] Corinne Pedroza documented as of this encounter Visit Diagnoses Not on filedocumented in this encounter
--- OUTSIDE RECORDS SUMMARY | 2025-04-17 15:26 | XMS_ITS | Encounter Summary ---
Author Organization [employer] [facility] Address [address] [place] [address] 7t [place] [address] Care Team Providers Care Lead Sprinkler Name Role Phone Unavailable Primary Care Provider Unavailabl e Reason for Visit * Reason Onset Date Comments medication pre med 07/17/2023 Encounter Details Date Type Department Care Team (Late st Contact Info) Description 07/17/2023 Telephone [facility] ADULT DENTAL [address] [place] [address] Art Poe DDS [address] [place], [place] [phone] medication pre med Social History Tobacco Use [...] 08/27/2025 1:00 PM EST Office Visit [facility] ADULT DENTAL [address] [place], [place] [phone] Corinne Pedroza documented as of this encounter Visit Diagnoses Not on filedocumented in this encounter
--- OUTSIDE RECORDS SUMMARY | 2025-04-17 15:26 | XMS_ITS | Encounter Summary ---
Author Organization [facility] Address 5 [place] [address] Care Team Providers Care Leisure Studies Professor Name Role Phone Curt Wiseman MD Primary Care Provider [phone] Reason for Visit * Reason Comments Appointment Encounter Details Date Type Department Care Team ([facility] st Contact Info) Description 04/16/2021 Telephone [facility] Neurology [address] [address] Austin Sethi MD 123 [facility] [address] [place] [address] Appointment Social History Tobacco Use Types Packs/Day [...] Provider Department Phone 05/03/21 3:30 PM Austin eSthi MD [facility] Neurology [address] * Telephone [...] Phone 04/20/21 2:15 PM Austin Sethi MD [facility] Neurology [address] * Telephone [...] on filedocumented in this encounter Care Teams Leisure Studies Professor Relationship Specialty Start Date End Date Curt Wiseman MD [address] [address] PCP - General Family Medicine 02/10/21 documented as of this encounter
--- OUTSIDE RECORDS SUMMARY | 2025-04-17 15:26 | XMS_ITS | Encounter Summary ---
Author Organization [facility] Address [address] [place] [address] Care Team Providers Care Supervisor Coating Name Role Phone Curt Wiseman MD Primary Care Provider [phone] Encounter Details Date Type Department Care Team (Late st Contact Info) Description 01/08/2025 Lab Requisition [facility] - Main Lab 299 [facility] [place] [address] Hussein Nix, ANGEL [address] [place] [phone] Urinary tract infection, site not specified Social [...] Urine No growth 01/09/2025 1:14 PM EDT [facility] Urine Urine specimen obtained by clean catch procedure / Unknown 01/08/2025 2:15 PM EDT 01/08/2025 6:02 PM EDT us Hussein [facility] MICROBIOLOGY - GENERAL ORD ERABLES Final Result [facility] [address] [place] [address], documented in this encounter Visit Diagnoses Diagnosis Urinary tract infection, site not specified documented in this encounter Care Teams Supervisor Coating Relationship Specialty Start Date End Date Curt Wiseman MD PCP - General Family Medicine 07/22/24 documented as of this encounter
--- OUTSIDE RECORDS SUMMARY | 2025-04-17 15:26 | XMS_ITS | Encounter Summary ---
Author Organization [employer] Address [address] [facility] 7t [place] [address] Care Team Providers Care Bulk Materials Handling Plant Operator Name Role Phone Unavailable Primary Care Provider Unavailabl e Reason for Visit * Reason Onset Date Comments instructions 12/28/2022 Dental Pain 12/28/2022 Encounter Details Date Type Department Care Team ([facility] st Contact Info) Description 12/28/2022 Telephone [facility] ADULT DENTAL 230 [place] [address] Glory Burnshan, JANAK [address] [place] [address] instructions; Dental Pain Social History Tobacco Use [...] Description 08/27/2025 1:00 PM EST Office Visit [facility] ADULT DENTAL 505 [place] [address] Corinne Pedroza documented as of this encounter Visit Diagnoses Not on filedocumented in this encounter
--- OUTSIDE RECORDS SUMMARY | 2025-04-17 15:26 | XMS_ITS | Encounter Summary ---
Author Organization [facility] Address [address] [place] [address] Care Team Providers Care Television Specialist Name Role Phone Adeline Guo MD Primary Care Provider [phone] Feliciano Evans MD Unavailable Unavailable Yara Harding MD Unavailable [phone] Curt Wiseman MD Primary Care Provider [phone] Reason for Referral * Surgical (Routine) - Closed Specialty Diagnoses / Procedures Referred By Contanjel t Referred To Contact Anesthesiology Diagnoses Benign essential tremor Monroe Choi MD [address] [place] [address] Phone: tel: fax: [facility] at [address] 5[address] [place] [address] Phone: tel: fax: Referral ID Status Reason Start Date Expiration Date V isits Requested Visits Authorized [id number] Closed Specialty Services Required 11/14/2020 11/15/2021 1 1 Encounter Details Date Type Department Care Team (Late st Contact Info) Description 10/26/2020 Prep for Surgery [facility] Neurosurgery [address] [place] [phone] Emilee Brewer RN [address] [place], [place] [phone] Benign essential tremor (Primary Dx) Social History [...] Description 05/05/2025 1:00 PM EDT Procedure visit [facility] Neurology [address] [address] Suman Dudley MD 35 [place] [phone] (Work) Scheduled Referrals Name Type Priority Associated Diagnoses Order Schedule Ambulatory referral to Anesthesiology Outpatient Referral Routine Benign essential tremor Ordered: 11/14/2020 documented as of this encounter Visit Diagnoses Diagnosis Benign essential tremor- Primary Essential and other specified forms of tremor documented in this encounter Care Teams Television Specialist Relationship Specialty Start Date End Date Adeline Guo MD [address] [place] [address] [place] [address] PCP - General Internal Medicine 03/10/20 10/13/24 Curt Wiseman MD [address] [place] [address] [place] [address] PCP - General Family Medicine 10/14/24 Feliciano Evans MD 395 [place] [address] Referring Provider 10/28/20 Yara Harding MD 395 [place] [address] Neurology 03/20/23 Austin Sethi [address] [place] [address] Neurology Neurology 06/07/22 documented as of this encounter
--- OUTSIDE RECORDS SUMMARY | 2025-04-17 15:26 | XMS_ITS | Encounter Summary ---
Author Organization [facility] Address [address] [place] [address] Care Team Providers Care Sales And Support Center Agent Name Role Phone Adeline Guo MD Primary Care Provider +- [phone] Feliciano Evans MD Unavailable Unavailable Yara Harding MD Unavailable [phone] Curt Wiseman MD Primary Care Provider [phone] Encounter Details Date Type Department Care Team (Late Contact Info) Description 06/18/2020 Scanned Document [facility] Neurosurgery [employer] [address] [facility] [address] [place] [phone] Monroe Choi MD [address] [facility] [place] [address] [place] [address] Social History Tobacco Use Types Packs/Day Years [...] [facility] Neurology Jl 35 [facility] [address] [place] [address] Suman Dudley MD [address] [address] documented as of this encounter Visit Diagnoses Not on filedocumented in this encounter Care Teams Sales And Support Center Agent Relationship Specialty Start Date End Date Adeline Guo MD 395 [place] [address] PCP - General Internal Medicine 03/10/20 10/13/24 Curt Wiseman MD [address] [place] [address] Dr Garcia [address] [place] [address] PCP - General Family Medicine 10/14/24 Feliciano Evans MD [address] [place] [address] Referring Provider 10/28/20 Yara Harding MD [address] [place] [address] Neurology 03/20/[address] [address] Neurology Neurology 06/07/22 documented as of this encounter
--- OUTSIDE RECORDS SUMMARY | 2025-04-17 15:26 | XMS_ITS | Encounter Summary ---
Author Organization [employer] Address 75 [facility] 7t [place] [address] Care Team Providers Care Forestry Extension Specialist Name Role Phone Unavailable Primary Care Provider Unavailabl e Reason for Visit * Reason Onset Date Comments appt temp crown fell off/recement 03/19/2024 Encounter Details Date Type Department Care Team ([facility] st Contact Info) Description 03/19/2024 Telephone [facility] CHC ADULT DENTAL [address] [place] [address] Rocío Castillo DDS appt temp crown fell [...] Ok to schedule per Megan front office supervisor. Informed front office supervisor via phone that [employer] is not an insurance we have access [...] tomorrow at 1:30. They would like to pickling tank operator in the morning to have it ready to take prior to treatment. The pharmacy on file is the one to use. DR documented in this encounter Plan of Treatment Upcoming Encounters Date Type Department Care Team (Late st Contact Info) Description 08/27/2025 1:00 PM EST Office Visit [facility] ADULT DENTAL [address] [place] [address] Corinne Pedroza documented as of this encounter Visit Diagnoses Not on filedocumented in this encounter
--- OUTSIDE RECORDS SUMMARY | 2025-04-17 15:26 | XMS_ITS | Encounter Summary ---
Author Organization [employer] [facility] Address [address] [place] [address] 7t [place] [address] Care Team Providers Care Identifier Horse Name Role Phone Unavailable Primary Care Provider Unavailabl e Encounter Details Date Type Department Care Team (Latest Contact Info) Description 04/13/2022 Abstract [facility] CONVERSIONS Dental, Provider, DDS Social History [...] Description 08/27/2025 1:00 PM EST Office Visit [facility] CHC ADULT DENTAL [address] [place] [address] Corinne Pedroza documented as of this encounter Visit Diagnoses Not on filedocumented in this encounter
--- OUTSIDE RECORDS SUMMARY | 2025-04-17 15:26 | XMS_ITS | Encounter Summary ---
Author Organization [facility] Address [address] [place] [address] Care Team Providers Care Route Salesman And Driver Name Role Phone Adeline Guo MD Primary Care Provider +- [phone] Feliciano Evans MD Unavailable Unavailable Yara Harding MD Unavailable [phone] Curt Wiseman MD Primary Care Provider [phone] Encounter Details Date Type Department Care Team (Late st Contact Info) Description 02/28/2023 [facility] Neurology [address] [place] [address] Yara Harding MD [facility] [address] [place] [address] Social History Tobacco Use Types Packs/Day Years [...] 05/05/2025 1:00 PM EDT Procedure visit [facility] Neurology [place] 35 [facility] 6 [place] [address] Suman Dudley MD [address] [address] documented as of this encounter Visit Diagnoses Not on filedocumented in this encounter Care Teams Route Salesman And Driver Relationship Specialty Start Date End Date Adeline Guo MD [address] [place] [address] PCP - General Internal Medicine 03/10/20 10/13/24 Curt Wiseman MD [address] [place] [address] Dr Garcia [address] [place] [address] PCP - General Family Medicine 10/14/24 Feliciano Evans MD [address] [place] [address] Referring Provider 10/28/20 Yara Harding MD [address] [place] [address] Neurology 03/20/23 Austin Sethi [address] [place] [id number] Neurology Neurology 06/07/22 documented as of this encounter
--- OUTSIDE RECORDS SUMMARY | 2025-04-17 15:26 | XMS_ITS | Encounter Summary ---
Author Organization [facility] Address [address] [place] [address] 7t [place] [address] Care Team Providers Care Campground Caretaker Name Role Phone Unavailable Primary Care Provider Unavailabl e Reason for Visit * Reason Onset Date Comments Med Refill 10/08/2024 Encounter Details Date Type Department Care Team (Late st Contact Info) Description 10/08/2024 Refill [facility] ADULT DENTAL [address] [place] [address] Rocío Castillo DDS Social History Tobacco Use [...] 1:00 PM EST Office Visit [facility] ADULT DENTAL [address] [place] [address] Corinne Pedroza documented as of this encounter Visit Diagnoses Not on filedocumented in this encounter
--- OUTSIDE RECORDS SUMMARY | 2025-04-17 15:26 | XMS_ITS | Clinical Summary ---
Author Organization [employer] Address 75 [facility] 7t [place] [address] Care Team Providers Care Attending Psychiatrist Name Role Phone Unavailable Primary Care Provider [...] 04/11/2025 2:00 PM EDT Office Visit [facility] ADULT DENTAL [address] [place] [address] Andre Bang 03/11/2025 Telephone [facility] ADULT DENTAL [address] [place] [address] Alex Burns DMD returning call placed yesterday 03/10 dental 03/10/2025 Telephone [facility] ADULT DENTAL [address] [place], [place] [phone] Andre Bang 02/26/2025 2:15 PM EDT Office Visit [facility] ADULT DENTAL [address] [place] [address] SudhakarAlex brasherJANAK 02/24/2025 3:00 PM EDT Office Visit [facility] ADULT DENTAL [address] [place] [address] Andre Bang 02/20/2025 1:00 PM EDT Office Visit [facility] ADULT DENTAL [address] [place] [address] Corinne Pedroza Dental calculus (Primary Dx) from [...] [facility] [address] [place] [address] Corinne Pedroza Health Maintenance Due Date Last [...] Relevant to Health Maintenance Insurance DENTAL - [facility]
--- OUTSIDE RECORDS SUMMARY | 2025-04-17 15:26 | XMS_ITS | Encounter Summary ---
Author Organization [employer] [facility] Address [address] [place] [address] 7t [place] [address] Care Team Providers Care Feed Inspection Supervisor Name Role Phone Unavailable Primary Care Provider Unavailabl e Reason for Visit * Reason Onset Date Comments returning call placed yesterday 03/10 dental 12/2024 Encounter Details Date Type Department Care Team (Late Contact Info) Description 03/11/2025 Telephone [facility]ULT [facility] [address] [place] [address] Alex Burns, JANAK [address] [place] [address] returning call placed yesterday 03/10 dental Social [...] 08/27/2025 1:00 PM EST Office Visit [facility] ADULT D[facility] [address] [place] [address] Corinne Pedroza documented as of this encounter Visit Diagnoses Not on filedocumented in this encounter
--- OUTSIDE RECORDS SUMMARY | 2025-04-17 15:26 | XMS_ITS | Clinical Summary ---
Author Organization [address] [facility] Address [address] [place] [address] Phone Care Team Providers Care On Site Property Manager Name Role Phone Curt Wiseman MD [...] sleep apnea hypopnea, severe 016 Overview (07/08/2024): [facility] Home Polysomnogram: Date 12/08/2015; AHI 8, Unclassified apneas 0; Obstructive apneas 0; Central apneas 0; Mixed apneas 0; hypopneas 20; average oxygen saturation 94% (lowest 87% without saturations <88% for 5% or more of study) [facility] Polysomnogram treatment study. Date 02/28/2018. SE 84 % SM 86 %; spent 16 % of the study in REM. On CPAP @ 8; RDI 0.7 (AHI 0.3), Central apneas 0; Obstructive apneas 0; Mixed apneas 0; hypopneas 1; RERAs 1; and, average oxygen saturation was 93%. For the entire study, PLMs ~20. 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 05/21/2014 Overview (07/08/2024): [...] Orders: ECG 12 lead IgA deficiency, selective ([facility] V24, [facility] V28) 05/21/2014 Lower back pain 05/21/2014 Encounters Date Type Department Care Team Description 02/11/2025 Telephone [facility] Cardiology [facility] [address] [facility] [address] [place] [address] Feliciano Evans MD from Last [...] patient OTHER SURGICAL HISTORY 07/12/2019 Right PROCEDURE: SC ARTHROPLASTY GLENOHUMERAL JOINT TOTAL SHOULDER Medical History [...] 05/21/2014 DX:Erectile dysfunction IgA deficiency, selective ([facility] V24, [facility] V28) 05/21/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, selective (HCC) Impaired fasting glucose 06/02/2014 DX:Impa ired fasting glucose Depression 06/02/2014 DX:Depression Anxiety 06/02/2014 DX:Anxiety TBI (traumatic brain injury) ([facility] V24, [facility] V28) 06/02/2014 DX:TBI (traumatic brain inju ry) ([facility]) PTSD (post-traumatic stress disorder) 06/02/2014 DX:PTSD (post-traumatic [...] AM EST Performed at: 01 - [facility] [address] [id number] Speeder Worker: Annette Meier MD, Phone: [phone] us Feliciano Evans MD LAB BLOOD ORDERABLES Final Res ult [facility] 1 * Annual BMP Blood Test (10/22/2020) Annual BMP Blood Test abstracted Historical Provider MD HEALTH MAINTENANCE Final Result from Last 3 Months or Most Recently Relevant to Health Maintenance Insurance [employer] [employer] [id number] MEDICA[place] [address] [place] [address] [employer] [employer] [address] [place] [address] Care Teams On Site Property Manager Relationship Specialty Start Date End Date Curt Wiseman MD PCP - General Family Medicine 07/22/24
--- OUTSIDE RECORDS SUMMARY | 2025-04-17 15:26 | XMS_ITS | Encounter Summary ---
Author Organization [facility] Address [address] [place] [address] Care Team Providers Care Business Center Attendant Name Role Phone Adeline Guo MD Primary Care Provider +- [phone] Feliciano Evans MD Unavailable Unavailable Yara Harding MD Unavailable [phone] Curt Wiseman MD Primary Care Provider [phone] Encounter Details Date Type Department Care Team (Late Contact Info) Description 05/15/2020 Scanned Document [facility] Neurosurgery [place] [address] [facility] [address] [place] [phone] Marcelino Steen MD 35 [facility] 5 [place] [address] Social History Tobacco Use Types Packs/Day Years [...] Description 05/05/2025 1:00 PM EDT Procedure visit [facility] Neurology [place] 35 [facility] [address] [place] [address] Suman Dudley MD [address] [place] [address] [place] [address] documented as of this encounter Visit Diagnoses Not on filedocumented in this encounter Care Teams Business Center Attendant Relationship Specialty Start Date End Date Adeline Guo MD [address] [place] [address] PCP - General Internal Medicine 03/10/20 10/13/24 Curt Wiseman MD [address] [place] [address] Dr Garcia [address] [place] [address] PCP - General Family Medicine 10/14/24 Feliciano Evans MD [address] [place] [address] Referring Provider 10/28/20 Yara Harding MD [address] [place] [address] Neurology 03/20/[address] [address] Neurology Neurology 06/07/22 documented as of this encounter
== END 2025-04-17 12:15 | disposition home or self-care (01) ==
LOC: HO.PMCPRC 11:08
PROVIDERS: PCP Family Medicine; Visit Provider Internal Medicine
DX: M16.12 Unilateral primary osteoarthritis, left hip (principal)
CPT/HCPCS: 20610; 77002

== ENCOUNTER 2025-05-30 09:47 | Outpatient (AMB) | payer MEDICARE, SELFPAY ==
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
[2025-05-30 09:51] VITALS: BP 140/82; PULSE 64; RESP 16; O2SAT 95; BMI 31.3
--- OUTSIDE RECORDS SUMMARY | 2025-05-30 11:03 | XMS_ITS | Encounter Summary ---
Author Organization [facility] Address [address] [place] [address] Care Team Providers Care Cnc Mill Set Up Operator Name Role Phone Adeline Guo MD Primary Care Provider + [phone] Feliciano Evans MD Unavailable [phone] Yara Harding MD Unavailable [phone] Curt Wiseman MD Primary Care Provider [phone] Encounter Details Date Type Department Care Team (Late st Contact Info) Description 04/08/2020 Scanned Document [address] [phone] Monroe Choi MD [address] [place] [address] Social History Tobacco Use Types Packs/Day Years Used Date Smoking Tobacco: Never Smokeless Tobacco: Never Sex and Gender Information Value Date Recorded Sex Assigned at Male 02/23/2022 12:37 PM EDT Legal Sex Male 6:54 PM EST Gender Identity Male 05/05/2025 9:19 AM EDT Sexual Orientation Heterosexual (straight) 02/23 12:37 PM EDT COVID-19 Exposure Response Date Recorded In the last month, have you been in contact with someone who was confirmed or suspected to have Coronavirus / COVID-19? No / Unsure 04/06/2020 1:21 PM EDT documented as of this encounter Plan of Treatment Upcoming Encounters Date Type Department Care Team (Late st Contact Info) Description 08/04/2025 1:30 PM EST Office Visit [facility] Neurology [place] 35 [facility] [address] [place] [address] Suman Dudley MD [address] [address] documented as of this encounter Visit Diagnoses Not on filedocumented in this encounter Care Teams Cnc Mill Set Up Operator Relationship Specialty Start Date End Date Adeline Guo MD [address] [place] [address] PCP - General Internal Medicine 03/10/20 10/13/24 Curt Wiseman MD [address] [place] [address] PCP - General Family Medicine 10/14/24 Feliciano Evans MD [address] [place] [address] Referring Provider 10/28/20 Yara Harding MD [address] [place] [address] Neurology 03/20/[address] [address] Neurology Neurology 06/07/22 documented as of this encounter
--- OUTSIDE RECORDS SUMMARY | 2025-05-30 11:03 | XMS_ITS | Clinical Summary ---
Author Organization [facility] Address [address] [place] [address] Care Team Providers Care Cognos Architect Name Role Phone Adeline Locke Primary Care [...] Colonoscopy 1952 FOBT / Fit Test 1950 Sigmoidoscopy 1950 DTaP,Tdap,and Td Vaccines (2 - Tdap) 05/05/2021 05/05/2011 Alcohol/Substance Use Screening 08/07/2024 Health Care Proxy Review 08/07/2024 COVID-19 Vaccine ( season) 2025 04/22/2022, [...] this topic Medical Devices Implanted Type Area Senior Internal Auditor Device Identifier Shelf Expiration Date Model / Serial / Lot Baseplate Reverse Shoulder Prosthesis With P2 Coating 30mm - [id number] Implanted:Qty: 1 on 07/12/2019 by Andrew Butler MD at [facility] Implant [employer] 05/03/2025 [id number] / / [id number] Head Glenoid With Retaining Screw [place] Shoulder Prosthesis Neutral 32mm - [id number] Implanted:Qty: 1 on 07/12/2019 by Andrew Butler MD at [facility] Implant [employer] 04/09/2025 [id number] / / [id number] Insert Socket Humeral Standard Hxe-Plus Rsp Sterile [id number] - [id number] Implanted:Qty: 1 on 07/12/2019 by Andrew Butler MD at [facility] Implant [employer] 05/31/2023 [id number] / / [id number] Stem Humeral Standard Reverse Shoulder Prosthesis [id number] - [id number] Implanted:Qty: 1 on 07/12/2019 by Andrew Butler MD at [facility] Implant [employer] 07/12/2024 530-10-108 / / [id number] Screw Locking Reverse Shoulder Prosthesis [id number] - [id number] Implanted:Qty: 1 on 07/12/2019 by Andrew Butler MD at [facility] Screw [employer] 03/24/2025 506-03-130 / / [id number] Screw Locking Bone Reverse Shoulder Prosthesis [id number] - [id number] Implanted:Qty: 1 on 07/12/2019 by Andrew Butler MD at [facility] Screw [employer] 04/19/2025 [id number] / / [id number] Screw Locking Reverse Shoulder Prosthesis [id number] - [id number] Implanted:Qty: 1 on 07/12/2019 by Andrew Butler MD at [facility] Screw [employer] 02/27/2025 506-03-130 / / [id number] Insurance [facility] Advance Directives * Full Code (Latest Code Status on File) Date Activated Date Inactivated Comments 07/12/2019 1:40 PM 07/13/2019 8:20 PM * Full Code Date Activated Date Inactivated Comments 07/12/2019 6:13 AM 07/12/2019 1:40 PM Care Teams Cognos Architect Relationship Specialty Start Date End Date Adeline Locke PCP - General Pediatrics 11/14/17
--- OUTSIDE RECORDS SUMMARY | 2025-05-30 11:03 | XMS_ITS | Encounter Summary ---
Author Organization [facility] Address [address] [place] [address] Care Team Providers Care Supervisor Gate Services Name Role Phone Adeline Locke Primary Care Provider Unavailable Reason for Visit * Reason Onset Date Comments Neurology apt with Dr. Kitchen 11/30/2021 Encounter Details Date Type Department Care Team (Late st Contact Info) Description 11/30/2021 Telephone [facility] [address] [place] [phone] Telephone Intake, Staff Neurology apt with Dr. [...] scheduling. A good call back number is [phone]. documented in this encounter Plan of Treatment Not on file documented as of this encounter Visit Diagnoses Not on filedocumented in this encounter Care Teams Supervisor Gate Services Relationship Specialty Start Date End Date Adeline Locke PCP - General Pediatrics 11/14/17 documented as of this encounter
--- OUTSIDE RECORDS SUMMARY | 2025-05-30 11:03 | XMS_ITS | Encounter Summary ---
Author Organization [facility] Address [address] [place] [address] Care Team Providers Care Foreign Collection Clerk Name Role Phone Adeline Guo MD Primary Care Provider + [phone] Feliciano Evans MD Unavailable [phone] Yara Harding MD Unavailable [phone] Curt Wiseman MD Primary Care Provider [phone] Encounter Details Date Type Department Care Team (Late st Contact Info) Description 10/28/2021 Scanned Document [facility] Neurosurgery [address] [place] [address] Monroe Choi MD [address] [place] [id number] Social History Tobacco Use Types Packs/Day Years [...] Description 08/04/2025 1:30 PM EST Office Visit [facility] Neurology [place] 35 [facility] [address] [place] [address] Suman Dudley MD [address] [address] [place] [address] documented as of this encounter Visit Diagnoses Not on filedocumented in this encounter Care Teams Foreign Collection Clerk Relationship Specialty Start Date End Date Adeline Guo MD [address] [place] [address] PCP - General Internal Medicine 03/10/20 10/13/24 Curt Wiseman MD [address] [place] [address] Dr Garcia [address] [place] [address] PCP - General Family Medicine 10/14/24 Feliciano Evans MD [address] [place] [address] Referring Provider 10/28/20 Yara Harding MD [address] [place] [address] Neurology 03/20/[address] [address] Neurology Neurology 06/07/22 documented as of this encounter
--- OUTSIDE RECORDS SUMMARY | 2025-05-30 11:03 | XMS_ITS | Encounter Summary ---
Author Organization [facility] Address [address] [place] [address] Care Team Providers Care Mortgage Counselor Name Role Phone Adeline Guo MD Primary Care Provider +- [phone] Feliciano Evans MD Unavailable [phone] Yara Harding MD Unavailable [phone] Curt Wiseman MD Primary Care Provider [phone] Encounter Details Date Type Department Care Team (Late st Contact Info) Description 04/07/[address] [facility] Neurosurgery [place] [address] [facility] [address] [place] [phone] Monroe Choi MD 85 [facility] [place] [address] [place] [address] Social History Tobacco Use Types Packs/Day Years [...] Description 08/04/2025 1:30 PM EST Office Visit [facility] Neurology [place] 35 [facility] [address] [place] [address] Suman Dudley MD [address] [address] documented as of this encounter Visit Diagnoses Not on filedocumented in this encounter Care Teams Mortgage Counselor Relationship Specialty Start Date End Date Adeline Guo MD [address] [place] [address] PCP - General Internal Medicine 03/10/20 10/13/24 Curt Wiseman MD [address] [place] [address] PCP - General Family Medicine 10/14/24 Feliciano Evans MD [address] [place] [address] Referring Provider 10/28/20 Yara Harding MD [address] [place] [address] Neurology 03/20/[address] [address] Neurology Neurology 06/07/22 documented as of this encounter
--- OUTSIDE RECORDS SUMMARY | 2025-05-30 11:03 | XMS_ITS | Encounter Summary ---
Author Organization [facility] Address [address] [place] [address] Care Team Providers Care Gaming Commissioner Name Role Phone Adeline Guo MD Primary Care Provider +- [phone] Feliciano Evans MD Unavailable [phone] Yara Harding MD Unavailable [phone] Curt Wiseman MD Primary Care Provider [phone] Encounter Details Date Type Department Care Team (Late st Contact Info) Description 11/26/2020 Prep for Surgery [facility] 85 [facility] [address] [place] [address] Mariama Allred, HEAD CHEF [address] [place] [address] Social History Tobacco Use Types [...] Description 08/04/2025 1:30 PM EST Office Visit [facility] Neurology [place] 35 [facility] [address] [place] [address] Suman Dudley MD [address] [address] documented as of this encounter Visit Diagnoses Not on filedocumented in this encounter Care Teams Gaming Commissioner Relationship Specialty Start Date End Date Adeline Guo MD [address] [place] [address] PCP - General Internal Medicine 03/10/20 10/13/24 Curt Wiseman MD [address] [place] [address] PCP - General Family Medicine 10/14/24 Feliciano Evans MD [address] [place] [address] Referring Provider 10/28/20 Yara Harding MD [address] [place] [address] Neurology 03/20/[address] [address] Neurology Neurology 06/07/22 documented as of this encounter
--- OUTSIDE RECORDS SUMMARY | 2025-05-30 11:03 | XMS_ITS | Encounter Summary ---
Author Organization [facility] Address [email or web address] [place] [address] Phone Care Team Providers Care Branch Service Associate Name Role Phone Adeline Guo MD Primary Care Provider + Encounter Details Date Type Department Care Team (Late st Contact Info) Description 01/22/2024 Ancillary Orders [facility]'[address] [address] Alex Garza MD [address] [place] [address], [address] [place] [address] [email or web address] Chronic pain of both knees (Primary [...] Primary documented in this encounter Care Teams Branch Service Associate Relationship Specialty Start Date End Date Adeline Guo MD [address] [place] [address] PCP - General Pediatrics 10/01/19 documented as of this encounter Additional Source Comments The information contained in this document represents components of the legal health record. It is not the complete legal health record.[facility]
--- OUTSIDE RECORDS SUMMARY | 2025-05-30 11:03 | XMS_ITS | Continuity of Care Document ---
Author Organization [facility] Address [address] [place] [address] Care Team Providers Care Airborne Electronics Analyst Name Role Phone Curt Wiseman MD Primary Care Provider Encounters Date Type Department Care Team Description 10/14/2023 [facility] Neu[facility] [address] [facility] [address] [place] [address] Austin Sethi MD E-prescribing Refill Request 10/10/2023 Refill [facility] Neurology [address] [facility] [address] [place] [address] Austin Sethi MD Refill Request 06/25/2023 Refill [facility] Neurology [address] [facility] [address] [place] [address] Austin Sethi MD Med Change Request; Refill Request 05/22/2023 Refill [facility] Neurology [address] [facility] [address] [place] [address] Austin Sethi MD E-prescribing Refill Request 03/20/2023 Telephone [facility] Neurology [address] [facility] [address] [place] [address] Austin Sethi MD Medication Check 02/20/2023 Refill [facility] Neurology [address] [facility] [address] [place] [address] Austin Sethi MD E-prescribing Refill Request 01/10/2023 Refill [facility] Neurology [address] [facility] [address] [place] [address] Austin Sethi MD E-prescribing Refill Request 08/08/2022 Refill [facility] Neurology [address] [facility] [address] [place] [address] Austin Sethi MD E-prescribing Refill Request 07/25/2022 Telephone [facility] Neurology [address] [facility] [address] [place] [address] Austin Sethi MD Appointment 06/07/2022 4:30 PM EDT Office Visit [facility] Neurology [address] [facility] [address] [place] [address] Austin Sethi MD Essential tremor (Primary Dx) 05/23/2022 Refill [facility] Neurology [address] [facility] [address] [place] [address] Austin Sethi MD E-prescribing Refill Request 03/11/2022 Telephone [facility] Neurology [address] [facility] [address] [place] [address] Austin Sethi MD Follow Up 03/07/2022 8:15 AM EDT Office Visit [facility] Neurology [address] [facility] [address] [place] [address] Austin Sethi MD Essential tremor (Primary Dx) 02/22/2022 Telephone [facility] Neurology [address] [facility] [address] [place] [address] Austin Sethi MD Appointment 01/19/2022 Telephone [facility] Neurology [address] [facility] [address] [place] [address] Austin Sethi MD Follow Up 12/24/2021 Refill [facility] Neurology [address] [facility] [address] [place] [address] Austin Sethi MD 12/11/2021 Refill [facility] Neurology [address] [facility] [address] [place] [address] Austin Sethi MD E-prescribing Refill Request 11/15/2021 Telephone [facility] Neurology [address] [facility] [address] [place] [address] Austin Sethi MD Follow Up (DBS adjustment ) 10/29/2021 4:00 PM EDT Office Visit [facility] Neurology [address] [facility] [address] [place] [address] Austin Sethi MD Essential tremor (Primary Dx) 10/28/2021 Refill [facility] Neurology [address] [facility] [address] [place] [address] Toma Salas MD E-prescribing Refill Request 09/26/2021 Refill [facility] Neurology [address] [facility] [address] [place] [address] Austin Sethi MD E-prescribing Refill Request 09/12/2021 Refill [facility] Neurology [address] [facility] [address] [place] [address] Austin Sethi MD E-prescribing Refill Request 07/23/2021 Telephone [facility] Neurology [address] [facility] [address] [place] [address] Lorna Prado, SONALI Appointment 05/03/2021 3:30 PM EDT Office Visit [facility] Neurology [address] [facility] [address] [place] [address] Austin Sethi MD Essential tremor (Primary Dx) 04/16/2021 Telephone [facility] Neurology [address] [facility] [address] [place] [address] Austin Sethi MD Appointment 01/29/2021 4:45 PM EDT Office Visit [facility] Neurology [address] [facility] [address] [place] [address] Austin Sethi MD Essential tremor (Primary Dx) 12/31/2020 Telephone [facility] Neurology [address] [facility] [address] [place] [address] Austin Sethi MD Follow Up (DBS) 12/25/2020 Telephone [facility] Neurology [address] [facility] [address] [place] [address] Austin Sethi MD Medication Problem (Lorazepam) 12/24/2020 Telephone [facility] Neurology [address] [facility] [address] [place] [address] Austin Sethi MD Prior Authorization Request (lorazepam) 12/22/2020 Travel 12/22/2020 4:30 PM EDT Office Visit [facility] Neurology [address] [facility] [address] [place] [address] Austin Sethi MD Essential tremor (Primary Dx); PTSD (post-traumatic stress disorder) 12/15/2020 Refill [facility] Neurology [address] [facility] [address] [place] [address] Austin Sethi MD Refill Request (Xanax 0.25) 12/10/2020 10:30 AM EDT Office Visit [facility] Neurology [address] [facility] [address] [place] [address] Austin Sethi MD Essential tremor (Primary Dx) 12/09/2020 Telephone [facility] Neurology [address] [facility] [address] [place] [address] Austin Sethi MD Follow Up (DBS) 12/08/2020 Travel 12/08/2020 8:00 AM EDT Office Visit [facility] Neurology [address] [facility] [address] [place] [address] Austin Sethi MD Essential tremor (Primary Dx) 11/25/2020 Telephone [facility] Neurology [address] [facility] [address] [place] [address] Austin Sethi MD Other 10/30/2020 Refill [facility] Neurology [address] [facility] [address] [place] [address] Austin Sethi MD E-prescribing Refill Request 10/30/2020 Telephone [facility] Neurology [address] [facility] [address] [place] [address] Austin Sethi MD Medication Problem (primidone) 10/20/2020 Travel 10/20/2020 8:00 AM EDT Consult (Initial) [facility] Neurology [address] [facility] [address] [place] [address] Austin Sethi MD Essential tremor (Primary Dx) 10/01/2020 Telephone [facility] Neurology [address] [facility] [address] [place] [address] Austin Sethi MD Appointment 03/13/2018 Orders Only [facility] Cardiology [address] [place] [address] [address] [place] [address] Jorge Pascual DO 03/13/2018 Orders Only [facility] Pre-Admission Testing [address] [place] [address] Yamilex Langston NP 03/13/2018 3:30 PM EDT Office Visit [facility] Pre-Admission Testing [address] [place] [address] Yamilex Langston NP Preop examination (Primary Dx); Gastroesophageal reflux disease, esophagitis presence not specified; Hyperlipidemia, unspecified hyperlipidemia type; Hypertension, unspecified type; Benign prostatic hyperplasia, unspecified whether lower urinary tract symptoms present; Mood disorder; RLS (restless legs syndrome); SAMMIE (obstructive sleep apnea) 03/13/2018 3:00 PM EDT Nurse Visit [facility] Pre-Admission Testing [address] [place] [address] Poonam Pedersen, RN Gastroesophageal reflux disease, esophagitis presence not specified (Primary Dx) 02/19/2018 2:45 PM EDT Consult (Initial) [facility] General Surgery [address] [facility] [address] [place] [address] Trevor Lo MD Gastroesophageal reflux disease without [...] problems Social History Smoking Status as of 05/30/2025 Tobacco Use Types Packs/Day Years Used Date [...] EDT 03/13/2018 8:44 PM EDT Yamilex Langston [employer] INTER[employer] CARDIOVASCULAR-WITH INBSK T RTG Final Result Performing Organization Address City/[facility]/ZIP Co de Phone Number [facility] * PROTHROMBIN TIME (PT) (INR), BLOOD (03/13/2018 4:11 PM EDT) INR 1.0 [facility] Comment: Reference Range 0.9-1.1 Moderate-intensity Warfarin Therapy 2.0-3.0 Higher-intensity Warfarin Therapy 3.0-4.0 PT 10.7 9.0 - 11.5 sec [facility] Comment: For more information on this test, go to: http://education.Klinq.Wiki-PR/[email or web address] 03/13/2018 4:11 PM EDT 03/13/2018 9:37 PM EDT Narrative Resulting Agency Comment [id number] us Yamilex Langston [employer] LAB SAME DAY RESULT Final Result [facility] [address] [place] [address] * CBC INCLUDES DIFFERENTIAL AND PLATELET COUNT [...] 9:37 PM EDT Narrative Resulting Agency Comment [id number] Yamilex Langston [employer] [facility] SAME DAY RESULT Final Result [facility] [address] [place] [address] * HEPATIC FUNCTION PANEL (ALT,AST,ALK PH,BILI'S,TP,ALB) (03/13/2018 [...] 9:37 PM EDT Narrative Resulting Agency Comment [id number] Yamilex Langston [employer] [facility] LABORATORY Final Res ult [facility] [address] [place] [address] * BASIC METABOLIC PANEL WITH (GFR) (03/13/2018 4:11 PM EDT) Glucose 98 65 - 99 mg/dL [facility] Comment:Fasting reference in terval Urea Nitrogen Blood (BUN) 20 7 - 25 mg/dL [facility] Creatinine 1.05 0.70 - 1.25 mg/dL [facility] Comment: For patients >49 years of age, the reference limit for Creatinine is approximately 13% higher for people identified as -Iraqi. GFR 74 > OR = 60 mL/min/1 [...] needs for GFR calculation. Resulting Agency Comment [id number] Yamilex Langston [facility]ORAT[facility] Final Res ult [facility] [address] [place] [place] [address] * XRAY ESOPHAGUS (11/14/2017) 11/14/2017 us Pricila [...] specified forms of tremor 06/07/2022 Care Teams Airborne Electronics Analyst Relationship Specialty Start Date End Date Curt Wiseman MD [address] [address] PCP - General Family Medicine 02/10/21
--- OUTSIDE RECORDS SUMMARY | 2025-05-30 11:03 | XMS_ITS | Patient Health Record ---
Author Organization [facility] Address [address] [address] Care Team Providers Care General Helper Name Role Phone BrantAdeline Primary Care Provider Unavaila Pricila Herman Unavailable [phone] Reason For Referral No Information Medications Medication [...] Problem Status W/U Status Risk Notes Problem Information temporarily unavailable Vomiting (787.03) Active confirmed Problem Information temporarily unavailable Diarrhea (787.91) Active confirmed Problem Information temporarily unavailable ABDMNAL PAIN GENERALIZED (789.07) Active confirmed Problem Information temporarily unavailable GERD [Gastroesophagea l reflux disease] (530.81) Active confirmed Problem Information temporarily unavailable Abnormal loss of weight (783.21) Active confirmed Problem Information temporarily unavailable Slow transit constipation (K59.01) Active confirmed Problem Information temporarily unavailable Barretts esophagus without dysplasia (K22.70) Active confirmed Problem Information temporarily unavailable Chronic GERD (K21.9) Active confirmed Problem Information temporarily unavailable Bleeding per rectum (K62.5) Active confirmed Problem Information temporarily unavailable Diarrhea, unspecified type (R19.7) Active confirmed Problem Information temporarily unavailable Projectile vomiting with nausea (R11.12) Active confirmed Problem Information temporarily unavailable Intractable cyclical vomiting with nausea (G43.A1) Active confirmed Plan Of Treatment Pending Test Test Name Order Date *[facility]va+Parasites Exam, Routine 03/31/2015 MRI:ENTEROGRAPHY 03/31/2015 Gastric emptying study 03/31/2015 CT Abdomen Pelvis with contrast 08/05/20 16 Insurance Providers Payer Name Payer Address Payer Phone Subscriber Number Group Number Insured Name Patient Relationship to Insured Coverage Start Date Coverage End Date Medicare B [place] [facility] [address] [place] [phone] [id number] THALIA DANIELSON Self - patient is the insured Medicaid OF [facility] [address] [place] [address] [id number] THALIA DANIELSON Self - patient is the insured Medical (General) History Medical History History ICD Code Hypertension Coronary artery disease s/p PCI Depression/ anxiety Hyperlipidemia Surgical History Surgery Date(Month/Year) cardiac stents
--- OUTSIDE RECORDS SUMMARY | 2025-05-30 11:03 | XMS_ITS | Clinical Summary ---
Author Organization [facility] Address [address] [place] [address] Care Team Providers Care Glaze Carrier Name Role Phone Feliciano Evans MD Unavailable [phone] Yara Harding MD Unavailable [phone] Curt Wiseman MD Primary Care Provider [phone] Allergies Active Allergy Reactions Criticality Noted Date [...] Information Patient taking differently: 150 mg Oral Daily, Reported on 05/05/2025 gabapentin (NEURONTIN) 400 MG capsule TAKE 1 [...] 1 packet by mouth as needed. Active diphenhydrAMINE (Benadryl Allergy) 25 MG tablet Take 1 tablet (25 mg total) by mouth nightly as needed. 5 Active Beclomethasone (Qvar RediHaler) 40 MCG/ACT inhaler Inhale 2 puffs (80 mcg total) as needed. 5 Active docusate sodium (COLACE) 100 MG capsule Take 1 capsule (100 mg total) by mouth as needed. 5 Active donepezil (ARICEPT) 5 MG tabletIndicatio ns:Memory change Take 1 tablet (5 mg total) by mouth nightly. 90 tablet 1 Active Active Problems Problem Noted Date Diagnosed Date Abnormal weight loss 10/14/2024 Angina pectoris 10/14/2024 Anaya's esophagus 10/14/2024 Bleeding per rectum 10/14/2024 Exposure to potentially hazardous substance 10/05 Overview (10/14/2024): December 21, 2023 Entered By: KRISHNA FAGAN Comment: Entered automatically through [employer] Problem List documentation program Feb 20, 2024 Entered By: REJI BERNARD Comment: Agent [employer] Registry Exam 02/20/24 Feb 20, 2024 Entered By: REJI BERNARD Comment: Agent Velarde Exposure, [facility], [facility] 1969- Generalized abdominal pain 10/14/2024 [...] deep brain stimulator placement 02/04 Overview (09/24/2021): [employer] - [employer], Linear lead, right chest Postoperative visit [...] Encounters Date Type Department Care Team Description 05/15/2025 1:00 PM EDT Telemedicine [facility] Neurosurgery [address] [address] Suman Dudley MD Tuttle, Asha M, PA-C Status post deep brain stimulator placement (Primary Dx) 05/15/2025 Travel 05/05/2025 1:00 PM EDT Procedure visit [facility] Neurology [address] [place] [address] Suman Dudley MD Essential tremor (Primary Dx); Memory change; Status post deep brain stimulator placement 05/05/2025 Travel from Last 3 Months Family History [...] Sign Reading Time Taken Comments Blood Pressure 145/86 05/05/2025 12:57 PM EDT Pulse 65 05/05/2025 12:57 PM EDT Temperature 36.7 C (98 F) 05/30/2022 3:26 PM EDT Respiratory Rate 16 05/30/2022 3:26 PM EDT Oxygen Saturation 96% 02/21/2022 2:50 PM EDT Inhaled Oxygen Concentration - - Weight 100 kg (221 lb) 05/15/2025 1:04 PM EDT Height 185.4 cm (6' 0.99 ) 05/15/2025 1:04 PM ED T verbal given Body Mass Index 29.16 05/15/2025 1:04 PM EDT Plan of Treatment Upcoming Encounters Date Type Department Care Team (Late st Contact Info) Description 08/04/2025 1:30 PM EST Office Visit [facility] Neurology [address] [address] Suman Dudley MD [address] [place] [address] Health Maintenance Due Date Last Done Comments Advance Care Planning 1950 Hepatitis C Virus Screening 1950 DTaP/Tdap/Td Vaccines (1 - Tdap) 1971 Pneumococcal Vaccines 50+ (1 of 2 - PCV) 1971 Colonoscopy 1997 RSV Vaccine 50 years and older and Patients (1 - Risk 50-74 years 1-dose series) 2002 Zoster (Shingles) Vaccine (1 of 2) 2002 Influenza Vaccine 03/07/2025 04/07/2024, , 05/25/2022, Additional history exists COVID-19 Vaccine ( season) 2025 11/08/2022, 04/22/2022, 11/11/2021, Additional history exists Hepatitis B Vaccines Aged Out No long er eligible based on patient's age to complete this topic Medical Devices Implanted Type Area Digital Pre Press Operator Device Identifier Shelf Expiration Date Model / Serial / Lot [id number] Extension Neurostimulator 60cm 1.3-3.8mm 1.5mm Std Qdpl Dist - [id number] Implanted:Qty: 1 on 11/25/2020 by Monroe Choi MD at [facility] Cerebral [employer] MINIMALLY INVASIVE T 09/10/2023 [id number] / [id number] 8V / [id number] Extension Neurostimulator 60cm 1.3-3.8mm 1.5mm Std Qdpl Dist - [id number] Implanted:Qty: 1 on 11/25/2020 by Monroe Choi MD at [facility] Cerebral [employer] MINIMALLY INVASIVE T 01/31/2024 [id number] / [id number] 2V / [id number] Screw Bone Mdfc 5mm 1.5mm Self Drill Htorq Xdr Grn Chano - [id number] Implanted:Qty: 4 on 11/04/2020 by Monroe Choi MD at [facility] Maxillofacial Cranial [employer] [id number] / / [id number] Lead Neurostimulator Strg Cylinder Firm Deep Brn Stm - [id number] Implanted:Qty: 1 on 11/04/2020 by Monroe Choi MD at [facility] Stimulator Right: Brain [employer] MINIMALLY INVASIVE T 05/25/2024 3387S-40 / / [id number] 3387s-40 Lead Neurostimulator Strg Cylinder Firm Deep Brn Stm - [id number] Implanted:Qty: 1 on 11/04/2020 by Monroe Choi MD at [facility] Stimulator [employer] MINIMALLY INVASIVE T 3387S-40 / / [id number] Neurostimulator Implantable 68mm X 51mm Percept 2 Chnl 61g - [id number] Implanted:Qty: 1 on 11/25/2020 by Monroe Choi MD at [facility] Stimulator [employer] MINIMALLY INVASIVE T 08/20/2022 [id number] / [id number] 1H / Napkin Machine Operator Neurostimulator Patient Percept Pc Device - [id number] Implanted:Qty: 1 on 11/25/2020 by Monroe Choi MD at [facility] Stimulator [employer] MINIMALLY INVASIVE T [id number] / / [id number] Kit Stimulator Tunnel Deep Brn Stm - [id number] Implanted:Qty: 1 on 11/25/2020 by Monroe Choi MD at [facility] Stimulator [employer] MINIMALLY INVASIVE T 3755 / / [id number] Filler Bone Void 10cc 20cc Calcium Slf Stimulan Rpd Cure Kit - [id number] Implanted:Qty: 1 on 11/04/2020 by Monroe Choi MD at [facility] Void Filler N/A: Brain [employer] - A BTG INT 12/04/2022 620-010 / / [id number] 620-010 Filler Bone Void 10cc 20cc Calcium Slf Stimulan Rpd Cure Kit - [id number] Implanted:Qty: 1 on 11/25/2020 by Monroe Choi MD at [facility] Void Filler Right: Chest [employer] - A BTG INT 12/04/2022 620-010 / / [id number] Description:mixed with 1 gm vancomycin powder and 1.2gm tobramycin powder Explanted Type Area Digital Pre Press Operator Device Identifier Shelf Expiration Date Model / Serial / Lot 70-It-Ar5p Electrode Neurostimulator [employer] - [id number] Explanted:Qty: 1 on 11/04/2020 by Monroe Choi MD at [facility] Stimulator Brain [employer] 10/15/2021 70-IT-AR 5P / / [id number] 66-It-Ar4p Electrode Neurostimulator Microtargeting [facility] - [id number] Explanted:Qty: 1 on 11/04/2020 by Monroe Choi MD at [facility] Stimulator Brain [employer] 02/25/2023 66-IT-AR 4P / / [id number] Cable Neurostimulator [facility]lk [facility] - [id number] Explanted:Qty: 1 on 11/04/2020 by Monroe Choi MD at [facility] Stimulator Right: Brain [employer] MINIMALLY INVASIVE T 09/03/2024 3550-68 / / [id number] Description:NOT AN IMPLANT Insurance [facility] Advance Directives * Full Code (Latest Code Status on File) Date Activated Date Inactivated Comments 11/25/2020 8:30 AM * Full Code Date Activated Date Inactivated Comments 11/04/2020 4:31 PM 11/25/2020 7:56 AM Care Teams Glaze Carrier Relationship Specialty Start Date End Date Curt Wiseman MD [address] [place] [address] Dr [address] [place] [address] PCP - General Family Medicine 10/14/24 Feliciano Evans MD Referring Provider 10/28/20 Yara Harding MD Neurology 03/20/[address] [address] Neurology Neurology 06/07/22
--- OUTSIDE RECORDS SUMMARY | 2025-05-30 11:03 | XMS_ITS | Encounter Summary ---
Author Organization [facility] Address [address] [place] [address] Care Team Providers Care Director Of Early Childhood Name Role Phone Adeline Guo MD Primary Care Provider [phone] Feliciano Evans MD Unavailable [phone] Yara Harding MD Unavailable [phone] Curt Wiseman MD Primary Care Provider [phone] Encounter Details Date Type Department Care Team (Late Contact Info) Description 05/10/2022 Scanned Document [facility] NEUROSURGERY SCAN Neurosurgery, Scan Social History [...] Department Care Team (Late Contact Info) Description 08/04/2025 1:30 PM EST Office Visit [facility] Neurology [address] [address] Suman Dudley MD [address] [facility] [address] [place] [address] documented as of this encounter Visit Diagnoses Not on filedocumented in this encounter Care Teams Director Of Early Childhood Relationship Specialty Start Date End Date Adeline Guo MD [address] [place] [address] PCP - General Internal Medicine 03/10/20 10/13/24 Curt Wiseman MD [address] [place] [address] [place] [address] PCP - General Family Medicine 10/14/24 Feliciano Evans MD [address] [place] [address] Referring Provider 10/28/20 Yara Harding MD [address] [place] [address] Neurology 03/20/[address] [address] Neurology Neurology 06/07/22 documented as of this encounter
--- OUTSIDE RECORDS SUMMARY | 2025-05-30 11:03 | XMS_ITS | Encounter Summary ---
Author Organization [facility] Address [address] [place] [address] Care Team Providers Care Optical Instrument Inspector Name Role Phone Adeline Guo MD Primary Care Provider +- [phone] Feliciano Evans MD Unavailable [phone] Yara Harding MD Unavailable [phone] Curt Wiseman MD Primary Care Provider [phone]- [phone] Encounter Details Date Type Department Care Team (Late st Contact Info) Description 08/05/2020 Scanned Document [facility] Neurosurgery [place] [address] [phone] Monroe Choi MD 85 [facility] [place] [address] [place] [address] Social History Tobacco Use Types Packs/Day Years [...] Description 08/04/2025 1:30 PM EST Office Visit [facility] Neurology [address] [phone] Suman Dudley MD 35 [facility] 6 [place] [address] documented as of this encounter Visit Diagnoses Not on filedocumented in this encounter Care Teams Optical Instrument Inspector Relationship Specialty Start Date End Date Adeline Guo MD [address] [place] [address] PCP - General Internal Medicine 03/10/20 10/13/24 Curt Wiseman MD [address] [place] [address] [place] [address] PCP - General Family Medicine 10/14/24 Feliciano Evans MD [address] [place] [address] Referring Provider 10/28/20 Yara Harding MD [address] [place] [address] Neurology 03/20/23 Austin Sethi [address] [place] [address] Neurology Neurology 06/07/22 documented as of this encounter
--- OUTSIDE RECORDS SUMMARY | 2025-05-30 11:03 | XMS_ITS | Encounter Summary ---
Author Organization [facility] Address [address] [place] [address] Care Team Providers Care Powder Truck Driver Name Role Phone Adeline Guo MD Primary Care Provider +- [phone] Feliciano Evans MD Unavailable [phone] Yara Harding MD Unavailable [phone] Curt Wiseman MD Primary Care Provider [phone]- [phone] Encounter Details Date Type Department Care Team (Late st Contact Info) Description 05/20/2021 Scanned Document [facility] Neurosurgery [place] 85 [facility] [address] [place] [phone] Monroe Choi MD 85 [facility] [place] [address] [place] [address] Social History Tobacco Use Types Packs/Day Years [...] Description 08/04/2025 1:30 PM EST Office Visit [facility] Neurology [place] 35 [facility] 6 [place] [address] Suman Dudley MD [address] [address] documented as of this encounter Visit Diagnoses Not on filedocumented in this encounter Care Teams Powder Truck Driver Relationship Specialty Start Date End Date Adeline Guo MD [address] [place] [address] PCP - General Internal Medicine 03/10/20 10/13/24 Curt Wiseman MD [address] [place] [address] [place] [address] PCP - General Family Medicine 10/14/24 Feliciano Evans MD [address] [place] [address] Referring Provider 10/28/20 Yara Harding MD [address] [place] [address] Neurology 03/20/[address] [address] Neurology Neurology 06/07/22 documented as of this encounter
--- OUTSIDE RECORDS SUMMARY | 2025-05-30 11:03 | XMS_ITS | Encounter Summary ---
Author Organization [facility] Address [address] [place] [phone] Phone Care Team Providers Care Welfare Supervisor Name Role Phone Adeline Guo MD Primary Care Provider + Encounter Details Date Type Department Care Team (Late st Contact Info) Description 01/22/2024 Ancillary Orders [facility] [address] Alex Garza MD [address] [place] [address], [address] [place] [address] [email or web address] Chronic pain of both knees [...] clinician's provided indication for this examination in [facility]: Pain COMPARISON: XR KNEE 4 OR [...] clinician's provided indication for this examination in [facility]:Pain COMPARISON: XR KNEE 4 OR MORE [...] Primary documented in this encounter Care Teams Welfare Supervisor Relationship Specialty Start Date End Date Adeline Guo MD [address] [place] [address] PCP - General Pediatrics 10/01/19 documented as of this encounter Additional Source Comments The information contained in this document represents components of the legal health record. It is not the complete legal health record.[facility]
--- OUTSIDE RECORDS SUMMARY | 2025-05-30 11:03 | XMS_ITS | Clinical Summary ---
Author Organization [facility] Address [address] [address] Phone Care Team Providers Care Domestic Technician Name Role Phone Adeline Gou MD Primary Care Provider + Allergies No [...] REPLACEMENT MEDICARE REPLACEMENT MEDICARE REPLACEMENT Care Teams Domestic Technician Relationship Specialty Start Date End Date Adeline Guo MD 4 [place] [address] PCP - General Pediatrics 10/01/19 Additional Source Comments The information contained in this document represents components of the legal health record. It is not the complete legal health record.[facility]
--- OUTSIDE RECORDS SUMMARY | 2025-05-30 11:04 | XMS_ITS | Encounter Summary ---
Author Organization [facility] Address [address] [place] [address] Care Team Providers Care Saddle And Harness Maker Name Role Phone Adeline Guo MD Primary Care Provider + [phone] Feliciano Evans MD Unavailable [phone] Yara Harding MD Unavailable [phone] Curt Wiseman MD Primary Care Provider [phone] Encounter Details Date Type Department Care Team (Late st Contact Info) Description 02/28/2023 [facility] Neurology [address] [place] [address] Yara Harding MD IS [facility] [address] [place] [address] Social History Tobacco Use Types Packs/Day Years [...] 08/04/2025 1:30 PM EST Office Visit [facility] Neurology [place] [address] [phone] Suman Dudley MD [address] [address] documented as of this encounter Visit Diagnoses Not on filedocumented in this encounter Care Teams Saddle And Harness Maker Relationship Specialty Start Date End Date Adeline Guo MD [address] [place] [address] PCP - General Internal Medicine 03/10/20 10/13/24 Curt Wiseman MD [address] [place] [address] PCP - General Family Medicine 10/14/24 Feliciano Evans MD [address] [place] [address] Referring Provider 10/28/20 Yara Harding MD [address] [place] [address] Neurology 03/20/[address] [address] Neurology Neurology 06/07/22 documented as of this encounter
--- OUTSIDE RECORDS SUMMARY | 2025-05-30 11:04 | XMS_ITS | Encounter Summary ---
Author Organization [facility] Address [address] [place] [address] Care Team Providers Care Microsoft Dynamics Ax Consultant Name Role Phone Adeline Guo MD Primary Care Provider +- [phone] Feliciano Evans MD Unavailable [phone] Yara Harding MD Unavailable [phone] Curt Wiseman MD Primary Care Provider [phone] Encounter Details Date Type Department Care Team (Late st Contact Info) Description 05/31/2022 Scanned Document [facility] Neurosurgery [address] [place] [phone] Monroe Choi MD 85 [facility] [place] [address] [place] [address] Social History Tobacco Use Types Packs/Day Years [...] Description 08/04/2025 1:30 PM EST Office Visit [facility] Neurology [place] 35 [facility] 6 [place] [address] Suman Dudley MD [address] [address] documented as of this encounter Visit Diagnoses Not on filedocumented in this encounter Care Teams Microsoft Dynamics Ax Consultant Relationship Specialty Start Date End Date Adeline Guo MD [address] [place] [address] PCP - General Internal Medicine 03/10/20 10/13/24 Curt Wiseman MD [address] [place] [address] PCP - General Family Medicine 10/14/24 Feliciano Evans MD [address] [place] [address] Referring Provider 10/28/20 Yara Harding MD [address] [place] [address] Neurology 03/20/[address] [address] Neurology Neurology 06/07/22 documented as of this encounter
--- OUTSIDE RECORDS SUMMARY | 2025-05-30 11:04 | XMS_ITS | Encounter Summary ---
Author Organization [facility] Address [address] [place] [address] Care Team Providers Care Sanitary Landfill Supervisor Name Role Phone Curt Wiseman MD Primary Care Provider [phone] Encounter Details Date Type Department Care Team (Late Contact Info) Description 01/08/2025 Lab Requisition [facility] - Main Lab [address] [facility] [place] [address] Hussein Nix, ANGEL [address] [place] [address] [place] [phone] Urinary tract infection, site not specified Social [...] Department Care Team (Late Contact Info) Description 09/09/2025 9:10 AM EST Office [facility] [address] [place] [address] Drake Lo NP [address] [facility] [address] [place] [address] documented as of this encounter Procedures Procedure Name Priority Date/Time Associated Diagnosis Comments CULTURE URINE Routine 01/08/2025 2:15 PM EDT Urinary tract infection, site not specified documented in this encounter Results * Culture urine (01/08/2025 2:15 PM EDT) Culture, Urine No growth 01/09/2025 1:14 PM EDT [facility] Urine Urine specimen obtained by clean catch procedure / Unknown 01/08/2025 2:15 PM EDT 01/08/2025 6:02 PM EDT us Hussein Nix PA LAB MICROBIOLOGY - GENERAL ORD ERABLES Final Result [facility] [address] [place] [address], documented in this encounter Visit Diagnoses Diagnosis Urinary tract infection, site not specified documented in this encounter Care Teams Sanitary Landfill Supervisor Relationship Specialty Start Date End Date Curt Wiseman MD PCP - General Family Medicine 07/22/24 documented as of this encounter
--- OUTSIDE RECORDS SUMMARY | 2025-05-30 11:04 | XMS_ITS | Encounter Summary ---
Author Organization [employer] Address 75 [facility] 7 [place] [address] Care Team Providers Care Accounting Instructor Name Role Phone Unavailable Primary Care Provider Unavailabl e Reason for Visit * Reason Onset Date Comments medication pre med 07/17/2023 Encounter Details Date Type Department Care Team (Late st Contact Info) Description 07/17/[address] [facility] ADULT DENTAL [address] [place] [address] Art Poe DDS [address] [place] [address] medication pre med Social History Tobacco Use [...] Care Team (Late st Contact Info) Description 06/11/2025 2:00 PM EST Office Visit [facility] ADULT DENTAL [address] [place], [place] [phone] Andre Bang 505 [place], [place] [phone] 08/27/2025 1:00 PM EST Office Visit [facility] ADULT DENTAL [address] [place] [address] Corinne Pedroza documented as of this encounter Visit Diagnoses Not on filedocumented in this encounter
--- OUTSIDE RECORDS SUMMARY | 2025-05-30 11:04 | XMS_ITS | Encounter Summary ---
Author Organization [employer] Address [address] [place] [address] 7t [place] [address] Care Team Providers Care Harvesting Manager Name Role Phone Unavailable Primary Care Provider Unavailabl e Encounter Details Date Type Department Care Team (Late st Contact Info) Description 03/18/[address] [facility] ADULT DENTAL [address] [place], [place] [phone] Dipti Rosenthal [address] [place] [address] Social History Tobacco Use Types Packs/Day Years [...] Description 06/11/2025 2:00 PM EST Office Visit [facility] ADULT DENTAL [address] [place], [place] [phone] Andre Bang [address] [place] [address] 08/27/2025 1:00 PM EST Office Visit [facility] ADULT DENTAL [address] [place], [place] [phone] Corinne Pedroza documented as of this encounter Visit Diagnoses Not on filedocumented in this encounter
--- OUTSIDE RECORDS SUMMARY | 2025-05-30 11:04 | XMS_ITS | Clinical Summary ---
Author Organization 175 [facility] Address 175 [place] [address] Phone Care Team Providers Care Supervisor Roving Department Name Role Phone Curt Wiseman MD Primary [...] bedtime. 1 Active amLODIPine (NORVASC) 5 mg tablet Take 1 tablet (5 mg total) by mouth 1 (one) time each day. 90 each 3 5 Active atorvastatin (LIPITOR) 80 mg tablet TAKE 1 TABLET BY MOUTH EVERY DAY 90 tablet 2 5 Active omeprazole (PriLOSEC) [address] capsuleIndicatio ns:Gastroesophag eal reflux disease without esophagitis TAKE 1 CAPSULE [...] 75 mg 90 tablet 1 5 Active losartan-hydroCH LOROthiazide (HYZAAR) 100-12.5 mg per tablet TAKE 1 TABLET BY MOUTH EVERY DAY 90 tablet 1 5 Active ezetimibe (ZETIA) 10 mg tablet TAKE 1 TABLET BY MOUTH EVERY DAY 90 tablet 1 5 Active donepeziL (ARICEPT) 5 mg tablet Take 1 tablet (5 mg total) by mouth 1 (one) time each day. Active amLODIPine (NORVASC) 5 mg tabletIndication s:Essential hypertension Take 1 tablet (5 mg total) by mouth 1 (one) time each day. 90 each 3 4 025 Discontin ued(Cali rosenthal order) Active Problems Problem Noted Date Diagnosed Date [...] sleep apnea hypopnea, severe 016 Overview (07/08/2024): [facility] Home Polysomnogram: Date 12/08/2015; AHI 8, Unclassified apneas 0; Obstructive apneas 0; Central apneas 0; Mixed apneas 0; hypopneas 20; average oxygen saturation 94% (lowest 87% without saturations <88% for 5% or more of study) [facility] Polysomnogram treatment study. Date 02/28/2018. SE 84 % SM 86 %; spent 16 % of the study in REM. On CPAP @ 8; RDI 0.7 (AHI 0.3), Central apneas 0; Obstructive apneas 0; Mixed apneas 0; hypopneas 1; RERAs 1; and, average oxygen saturation was 93%. For the entire study, PLMs ~20. 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, [facility] V28) 05/21/2014 Lower back pain 05/21/2014 Encounters Date Type Department Care Team Description 05/07/2025 Telephone [facility] [address] [facility] [address] [place] [phone] Feliciano Evans MD from Last 3 Months Immunizations Immunization Administration Dates Next Due Influenza trivalent, 0.5mL [...] dysfunction 05/21/2014 DX:Erectile dysfunction IgA deficiency, 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, [facility]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/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, 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[facility]) Impaired fasting glucose 06/02/2014 DX:Impa ired fasting glucose Depression 06/02/2014 DX:Depression Anxiety 06/02/2014 DX:Anxiety TBI (traumatic brain injury) ([facility] V24, [facility] V28) 06/02/2014 DX:TBI (traumatic brain inju ry) ([facility]) PTSD (post-traumatic stress disorder) 06/02/2014 DX:PTSD (post-traumatic [...] 11/22/2024 2:52 PM EDT Plan of Treatment Upcoming Encounters Date Type Department Care Team (Late st Contact Info) Description 09/09/2025 9:10 AM EST Office Visit [facility] - [facility] [address] [place] [address] Drake Lo NP [address] [place] [address] Dr Garcia [address] [place] [phone] Health Maintenance Due Date Last Done Comments Colorectal Cancer Screening: Colonoscopy 1950 RSV Immunization Adult Patients (1 - Risk 50-74 years 1-dose series) 2002 Falls Risk Assessment 07/16/2022 Hepatitis C Screening 07/16/2022 Medicare Annual Wellness Visit 07/16/2022 Social Influencers of Health Screening 07/16/2022 Hypertension/CHF/CAD Annual BMP Blood Test 07/17/2022 10/22/2020 Depression Screening 08/07/2024 COVID-19 Vaccine (9 - Pfizer risk season) 2025 04/12/2024, 05/17/2023, 11/08/2022, Additional history exists Influenza Vaccine (#1) 2025 4, 04/07/2024, 06/07/2023, Additional history exists Cholesterol Screening [...] AM EST Performed at: 01 - [facility] [address] [id number] Manager Of Drilling: Annette Meier MD, Phone: [phone] us Feliciano Evans MD LAB BLOOD ORDERABLES Final Res ult [facility] 1 * Annual BMP Blood Test (10/22/2020) [facility] Annual BMP Blood Test abstracted us Historical Provider HEALTH MAINTENANCE Final Result from Last 3 Months or Most Recently Relevant to Health Maintenance Insurance [employer] MEDICAID - [place] MEDICARE ADVANTAGE [place], [place] [address] [employer] [address] [address] Care Teams Supervisor Roving Department Relationship Specialty Start Date End Date Curt Wiseman MD PCP - General Family Medicine 07/22/24
--- OUTSIDE RECORDS SUMMARY | 2025-05-30 11:04 | XMS_ITS | Encounter Summary ---
Author Organization [employer] Address 75 [facility] 7t [place] [address] Care Team Providers Care Otr Truck Driver Name Role Phone Unavailable Primary Care Provider Unavailabl e Reason for Visit * Reason Onset Date Comments appt temp crown fell off/recement 03/19/2024 Encounter Details Date Type Department Care Team ([facility] st Contact Info) Description 03/19/2024 Telephone [facility] ADULT DENTAL [address] [place] [address] Rocío Castillo DDS appt temp crown fell [...] Ok to schedule per Megan front desk clerk. Informed front desk clerk via phone that [employer] is not an insurance we have access [...] tomorrow at 1:30. They would like to apple picker in the morning to have it ready to take prior to treatment. The pharmacy on file is the one to use. DR documented in this encounter Plan of Treatment Upcoming Encounters Date Type Department Care Team (Late st Contact Info) Description 06/11/2025 2:00 PM EST Office Visit [facility] ADULT DENTAL [address] [place] [address] Andre Bang [address] [place] [address] 08/27/2025 1:00 PM EST Office Visit [facility] ADULT DENTAL [address] [place] [address] Corinne Pedroza documented as of this encounter Visit Diagnoses Not on filedocumented in this encounter
--- OUTSIDE RECORDS SUMMARY | 2025-05-30 11:04 | XMS_ITS | Encounter Summary ---
Author Organization [employer] Address 75 [facility] 7 [place] [address] Care Team Providers Care Disaster Recovery Manager Name Role Phone Unavailable Primary Care Provider Unavailabl e Encounter Details Date Type Department Care Team (Latest Contact Info) Description 10/13/2021 Abstract [facility] CONVERSIONS Dental, Provider, DDS Social History [...] [facility] ADULT DENTAL [address] [place] [address] Andre Bang [address] [place] [address] 08/27/2025 1:00 PM EST Office Visit [facility] ADULT DENTAL [address] [place] [address] Corinne Pedroza documented as of this encounter Visit Diagnoses Not on filedocumented in this encounter
--- OUTSIDE RECORDS SUMMARY | 2025-05-30 11:04 | XMS_ITS | Encounter Summary ---
Author Organization [employer] Address 75 [facility] 7 [place] [address] Care Team Providers Care Child Welfare Assistant Name Role Phone Unavailable Primary Care Provider Unavailabl e Encounter Details Date Type Department Care Team (Latest Contact Info) Description 04/13/2022 Abstract [facility] CONVERSIONS Dental, Provider, DDS Social History [...] 2:00 PM EST Office Visit [facility] ADULT DENTAL [address] [place] [address] Andre Bang [address] [place] [address] 08/27/2025 1:00 PM EST Office Visit [facility] ADULT DENTAL [address] [place] [address] Corinne Pedroza documented as of this encounter Visit Diagnoses Not on filedocumented in this encounter
--- OUTSIDE RECORDS SUMMARY | 2025-05-30 11:04 | XMS_ITS | Encounter Summary ---
Author Organization [employer] Address [address] [place] [address] 7 [place] [address] Care Team Providers Care Marine Erector Name Role Phone Unavailable Primary Care Provider Unavailabl e Reason for Visit * Reason Onset Date Comments Med Refill 10/08/2024 Encounter Details Date Type Department Care Team (Late st Contact Info) Description 10/08/2024 Refill [facility] ADULT DENTAL [address] [place] [address] Rocío Castillo DDS Social History Tobacco Use [...] Description 06/11/2025 2:00 PM EST Office Visit [facility] ADULT DENTAL [address] [place] [address] Andre Bang [address] [place] [address] 08/27/2025 1:00 PM EST Office Visit [facility] ADULT DENTAL [address] [place] [address] Corinne Pedroza documented as of this encounter Visit Diagnoses Not on filedocumented in this encounter
--- OUTSIDE RECORDS SUMMARY | 2025-05-30 11:04 | XMS_ITS | Encounter Summary ---
Author Organization [facility] Address [address] [place] [address] Care Team Providers Care Assistant Shift Supervisor Name Role Phone Adeline Guo MD Primary Care Provider +[phone]- [phone] Curt Wiseman MD Primary Care Provider +[phone]- [phone] Encounter Details Date Type Department Care Team ([facility] st Contact Info) Description 03/13/2018 Orders Only [facility] Pre-Admission Testing [address] [place] [address] Yamilex Langston NP Social History Tobacco Use [...] of this encounter Procedures * Due to [place] state law, this organization might not be [...] in this encounter Results * Due to [place] state law, this organization might not be [...] 03/13/2018 8:44 PM EDT us Yamilex Langston [employer] CARDIOVASCULAR-WITH INBSK T RTG Final Result MUSE EKG SYSTEM * PROTHROMBIN TIME (PT) (INR), BLOOD (03/13/2018 4:11 PM EDT) Pathologist [facility] INR 1.0 [facility] Comment: Reference Range 0.9-1.1 Moderate-intensity Warfarin Therapy 2.0-3.0 Higher-intensity Warfarin Therapy 3.0-4.0 PT 10.7 9.0 - 11.5 sec [facility] Comment: For more information on this test, go to: http://education.[employer]faq/TUN235 03/13/2018 4:11 PM EDT 03/13/2018 9:37 PM EDT Narrative Resulting Agency Comment [id number] Yamilex Langston NP LAB SAME DAY RESULT Final Result Performing Organization Address [facility] de Phone Number [facility] [address] [place] [address] * HEPATIC FUNCTION PANEL (ALT,AST,ALK PH,BILI'S,TP,ALB) (03/13/2018 4:11 PM EDT) Pathologist [facility] Protein Total (Serum) 6.7 6.1 - 8.1 [...] 9:37 PM EDT Narrative Resulting Agency Comment [id number] Yamilex Langston [employer] LABORATORY Final Res ult Performing Organization Address [facility] Co de Phone Number [facility] [address] [place] [address] * CBC INCLUDES DIFFERENTIAL AND PLATELET COUNT [...] 9:37 PM EDT Narrative Resulting Agency Comment [id number] Yamilex Langston [employer] LAB SAME DAY RESULT Final Result Performing Organization Address [facility] Co de Phone Number [facility] [address] [place] [address] * BASIC METABOLIC PANEL WITH (GFR) (03/13/2018 4:11 PM EDT) Pathologist [facility] Glucose 98 65 - 99 mg/dL [facility] Comment:Fasting reference in terval Urea Nitrogen Blood (BUN) 20 7 - 25 mg/dL [facility] Creatinine 1.05 0.70 - 1.25 mg/dL [facility] Comment: For patients >49 years of age, the reference limit for Creatinine is approximately 13% higher for people identified as -Thai. GFR 74 > OR = 60 mL/min/1 [...] needs for GFR calculation. Resulting Agency Comment [id number] us Yamilex Langston [employer] LABORATORY Final Res ult [facility] [address] [place] [address] documented in this encounter Visit Diagnoses Diagnosis Preop examination Preoperative examination, unspecified Gastroesophageal reflux disease, esophagitis presence not specified Hyperlipidemia, unspecified hyperlipidemia type Hypertension, unspecified type Benign prostatic hyperplasia, unspecified whether lower urinary tract symptoms present Mood disorder Unspecified episodic mood disorder RLS (restless legs syndrome) Restless legs syndrome (RLS) documented in this encounter Care Teams Assistant Shift Supervisor Relationship Specialty Start Date End Date Adeline Guo MD [address] [id number] PCP - General Internal Medicine 11/30/17 02/09/21 Curt Wiseman MD [address] [place] [address] PCP - General Family Medicine 02/10/21 documented as of this encounter
--- OUTSIDE RECORDS SUMMARY | 2025-05-30 11:04 | XMS_ITS | Encounter Summary ---
Author Organization [facility] Address [address] [place] [address] Care Team Providers Care Laboratory Coordinator Name Role Phone Adeline Guo MD Primary Care Provider +- [phone] Feliciano Evans MD Unavailable [phone] Yara Harding MD Unavailable [phone] Curt Wiseman MD Primary Care Provider [phone]- [phone] Encounter Details Date Type Department Care Team (Late st Contact Info) Description 06/01/2022 Scanned Document [facility] Neurosurgery [address] [place] [address] Neurosurgery, Scan Social History Tobacco Use [...] Description 08/04/2025 1:30 PM EST Office Visit [facility] Neurology [place] 35 [facility] [address] [place] [phone] Suman Dudley MD [address] [address] [place] [address] documented as of this encounter Visit Diagnoses Not on filedocumented in this encounter Care Teams Laboratory Coordinator Relationship Specialty Start Date End Date Adeline Guo MD [address] [place] [address] PCP - General Internal Medicine 03/10/20 10/13/24 Curt Wiseman MD [address] [place] [address] Dr Garica [address] [place] [address] PCP - General Family Medicine 10/14/24 Feliciano Evans MD [address] [place] [address] Referring Provider 10/28/20 Yara Harding MD [address] [place] [address] Neurology 03/20/[address] [address] Neurology Neurology 06/07/22 documented as of this encounter
--- OUTSIDE RECORDS SUMMARY | 2025-05-30 11:04 | XMS_ITS | Encounter Summary ---
Author Organization [facility] Address [address] [place] [address] Care Team Providers Care Computer Programmer Analyst Name Role Phone Adeline Guo MD Primary Care Provider [phone]- [phone] Feliciano Evans MD Unavailable [phone] Yara Harding MD Unavailable [phone] Curt Wiseman MD Primary Care Provider [phone]- [phone] Encounter Details Date Type Department Care Team (Late st Contact Info) Description 10/30/2020 Scanned Document [facility] Neurology [address] [place] [phone] Angelica Zuluaga, [facility] 35 [facility] 6 [place] [address] Social History Tobacco Use Types Packs/Day Years [...] EST Office Visit [facility] Neurology [place] 35 [facility] 6 [place] [address] Suman Dudley MD [address] [address] documented as of this encounter Visit Diagnoses Not on filedocumented in this encounter Care Teams Computer Programmer Analyst Relationship Specialty Start Date End Date Adeline Guo MD [address] [place] [address] PCP - General Internal Medicine 03/10/20 10/13/24 Curt Wiseman MD [address] [place] [address] PCP - General Family Medicine 10/14/24 Feliciano Evans MD [address] [place] [address] Referring Provider 10/28/20 Yara Harding MD [address] [place] [address] Neurology 03/20/[address] [address] Neurology Neurology 06/07/22 documented as of this encounter
--- OUTSIDE RECORDS SUMMARY | 2025-05-30 11:04 | XMS_ITS | Encounter Summary ---
Author Organization [facility] Address [address] [place] [address] Care Team Providers Care Director Of Product Management Name Role Phone Adeline Guo MD Primary Care Provider +- [phone] Feliciano Evans MD Unavailable [phone] Yara Harding MD Unavailable [phone] Curt Wiseman MD Primary Care Provider [phone]- [phone] Encounter Details Date Type Department Care Team (Late st Contact Info) Description 06/18/2020 Scanned Document [facility] [place] [facility] Neurosurgery [place] 85 [facility] [address] [place] [phone] Monroe Choi MD 85 [facility] [place] [address] [place] [address] Social History Tobacco Use Types Packs/Day Years [...] Description 08/04/2025 1:30 PM EST Office Visit [facility] [place] [facility] Neurology [place] 35 [facility] [address] [place] [address] Suman Dudley MD [address] [address] documented as of this encounter Visit Diagnoses Not on filedocumented in this encounter Care Teams Director Of Product Management Relationship Specialty Start Date End Date Adeline Guo MD [address] [place] [address] PCP - General Internal Medicine 03/10/20 10/13/24 Curt Wiseman MD [address] [place] [address] PCP - General Family Medicine 10/14/24 Feliciano Evans MD [address] [place] [address] Referring Provider 10/28/20 Yara Harding MD [address] [place] [address] Neurology 03/20/[address] [address] Neurology Neurology 06/07/22 documented as of this encounter
--- OUTSIDE RECORDS SUMMARY | 2025-05-30 11:04 | XMS_ITS | Encounter Summary ---
Author Organization [facility] Address 75 [facility] [address] 7[address] [place] [address] Care Team Providers Care Kiln Furniture Saw Tender Name Role Phone Unavailable Primary Care Provider Unavailabl e Reason for Visit * Reason Onset Date Comments instructions 12/28/2022 Dental Pain 12/28/2022 Encounter Details Date Type Department Care Team (Late st Contact Info) Description 12/28/2022 Telephone [facility] ADULT DENTAL [address] [place] [address] Alex Burns, DMD [address] [place] [address] instructions; Dental Pain Social History Tobacco Use [...] Description 06/11/2025 2:00 PM EST Office Visit [facility] ADULT DENTAL [address] [place] [address] Andre Bang 505 [place] [address] 08/27/2025 1:00 PM EST Office Visit [facility] ADULT DENTAL [address] [place] [address] Corinne Pedroza documented as of this encounter Visit Diagnoses Not on filedocumented in this encounter
--- OUTSIDE RECORDS SUMMARY | 2025-05-30 11:04 | XMS_ITS | Encounter Summary ---
Author Organization [facility] Address [address] [place] [address] Care Team Providers Care Embedded Case Manager Name Role Phone Adeline Guo MD Primary Care Provider + [phone] Feliciano Evans MD Unavailable [phone] Yara Harding MD Unavailable [phone] Curt Wiseman MD Primary Care Provider [phone]- [phone] Encounter Details Date Type Department Care Team (Late Contact Info) Description 05/20/2020 Scanned Document [address] [facility] [address] [place] [phone] Provider, Generic Social History Tobacco Use [...] Description 08/04/2025 1:30 PM EST Office Visit [facility] Neurology [address] [address] Suman Dudley MD 35 [facility] 6 [place] [address] documented as of this encounter Visit Diagnoses Not on filedocumented in this encounter Care Teams Embedded Case Manager Relationship Specialty Start Date End Date Adeline Guo MD [address] [place] [address] PCP - General Internal Medicine 03/10/20 10/13/24 Curt Wiseman MD [address] [place] [address] [place] [address] PCP - General Family Medicine 10/14/24 Feliciano Evans MD [address] [place] [address] Referring Provider 10/28/20 Yara Harding MD [address] [place] [address] Neurology 03/20/[address] [address] Neurology Neurology 06/07/22 documented as of this encounter
--- OUTSIDE RECORDS SUMMARY | 2025-05-30 11:04 | XMS_ITS | Encounter Summary ---
Author Organization [facility] Address 75 [facility] 7t [place] [address] Care Team Providers Care Double End Tenon Operator Name Role Phone Unavailable Primary Care Provider Unavailabl e Reason for Visit * Reason Onset Date Comments returning call placed yesterday 03/10 dental 12/2024 Encounter Details Date Type Department Care Team (Late Contact Info) Description 03/11/2025 Telephone [facility] [address] [place] [address] Alex Burns DMD [address] [place] [address] returning call placed yesterday 03/10 dental Social [...] Department Care Team (Late Contact Info) Description 06/11/2025 2:00 PM EST Office Visit [facility] [address] [place], [place] [phone] Andre Bang 505 [place] [address] 08/27/2025 1:00 PM EST Office Visit [facility] [address] [place] [address] Corinne Pedroza documented as of this encounter Visit Diagnoses Not on filedocumented in this encounter
--- OUTSIDE RECORDS SUMMARY | 2025-05-30 11:04 | XMS_ITS | Encounter Summary ---
Author Organization [facility] Address [address] [place] [address] Care Team Providers Care Medical Billing Clerk Name Role Phone Adeline Guo MD Primary Care Provider +- [phone] Feliciano Evans MD Unavailable [phone] Yara Harding MD Unavailable [phone] Curt Wiseman MD Primary Care Provider [phone] Encounter Details Date Type Department Care Team (Late st Contact Info) Description 05/15/2020 Scanned Document [facility] Neurosurgery [address] [place] [phone] Marcelino Steen MD 35 [facility] 5 [place] [address] Social History Tobacco Use Types Packs/Day Years [...] Description 08/04/2025 1:30 PM EST Office Visit [facility] Neurology [place] 35 [facility] [address] [place] [address] Suman Dudley MD [address] [address] documented as of this encounter Visit Diagnoses Not on filedocumented in this encounter Care Teams Medical Billing Clerk Relationship Specialty Start Date End Date Adeline Guo MD [address] [place] [address] PCP - General Internal Medicine 03/10/20 10/13/24 Curt Wiseman MD [address] [place] [address] PCP - General Family Medicine 10/14/24 Feliciano Evans MD [address] [place] [address] Referring Provider 10/28/20 Yara Harding MD [address] [place] [address] Neurology 03/20/[address] [address] Neurology Neurology 06/07/22 documented as of this encounter
--- OUTSIDE RECORDS SUMMARY | 2025-05-30 11:04 | XMS_ITS | Encounter Summary ---
Author Organization [facility] Address [address] [place] [address] Care Team Providers Care Exceptional Student Education Teacher Name Role Phone Adeline Guo MD Primary Care Provider +- [phone] Feliciano Evans MD Unavailable [phone] Yara Harding MD Unavailable [phone] Curt Wiseman MD Primary Care Provider [phone] Encounter Details Date Type Department Care Team (Late st Contact Info) Description 07/19/2022 Telephone [facility] Neurology [address] [place] [address] Yara Harding MD [facility] [address] [place] [address] Social History Tobacco Use Types Packs/Day Years [...] 08/04/2025 1:30 PM EST Office Visit [facility] Neurology [place] 35 [facility] 6 [place] [address] Suman Dudley MD [address] [address] documented as of this encounter Visit Diagnoses Not on filedocumented in this encounter Care Teams Exceptional Student Education Teacher Relationship Specialty Start Date End Date Adeline Guo MD [address] [place] [address] PCP - General Internal Medicine 03/10/20 10/13/24 Curt Wiseman MD [address] [place] [address] PCP - General Family Medicine 10/14/24 Feliciano Evans MD [address] [place] [address] Referring Provider 10/28/20 Yara Harding MD [address] [place] [address] Neurology 03/20/23 [place] Sethi [address] [place] [address] Neurology Neurology 06/07/22 documented as of this encounter
--- OUTSIDE RECORDS SUMMARY | 2025-05-30 11:04 | XMS_ITS | Encounter Summary ---
Author Organization [facility] Address [address] [place] [address] Care Team Providers Care Vascular Ultrasound Technician Name Role Phone Adeline Guo MD Primary Care Provider [phone] Feliciano Evans MD Unavailable [phone] Yara Harding MD Unavailable [phone] Curt Wiseman MD Primary Care Provider [phone] Reason for Referral * Surgical (Routine) - Closed Specialty Diagnoses / Procedures Referred By Contanjel t Referred To Contact Anesthesiology Diagnoses Benign essential tremor Monroe Choi MD [address] [place] [address] Phone: tel: fax: [facility] at [address] [place] [address] Phone: tel: fax: Referral ID Status Reason Start Date Expiration Date V isits Requested Visits Authorized [id number] Closed Specialty Services Required 11/14/2020 11/15/2021 1 1 Encounter Details Date Type Department Care Team (Late st Contact Info) Description 10/26/2020 Prep for Surgery [facility] Neurosurgery [address] [place] [phone] Emilee Brewer RN 35 [place] [address] Benign essential tremor (Primary Dx) Social History [...] Description 08/04/2025 1:30 PM EST Office Visit [facility] Neurology [address] [address] Suman Dudley MD [address] [place] [address] Scheduled Referrals Name Type Priority Associated Diagnoses Order Schedule Ambulatory referral to Anesthesiology Outpatient Referral Routine Benign essential tremor Ordered: 11/14/2020 documented as of this encounter Visit Diagnoses Diagnosis Benign essential tremor- Primary Essential and other specified forms of tremor documented in this encounter Care Teams Vascular Ultrasound Technician Relationship Specialty Start Date End Date Adeline Guo MD [address] [place] [address] [place] [address] PCP - General Internal Medicine 03/10/20 10/13/24 Curt Wiseman MD [address] [place] [address] Dr Garcia [facility] [place] [address] PCP - General Family Medicine 10/14/24 Feliciano Evans MD [address] [place] [address] Referring Provider 10/28/20 Yara Harding MD [address] [place] [address] Neurology 03/20/23 [place] Sethi [address] [place] [address] Neurology Neurology 06/07/22 documented as of this encounter
--- OUTSIDE RECORDS SUMMARY | 2025-05-30 11:04 | XMS_ITS | Encounter Summary ---
Author Organization [facility] Address [address] [place] [address] Care Team Providers Care Hammer Fitter Name Role Phone Pcp, No Primary Care Provider Unavailabl Adeline Mercado MD Primary Care Provider +- [phone] Feliciano Evans MD Unavailable [phone] Yara Harding MD Unavailable [phone] Curt Wiseman MD Primary Care Provider [phone] Encounter Details Date Type Department Care Team (Late st Contact Info) Description 02/25/2020 Scanned Document [facility] Neurosurgery [place] 85 [facility] [address] [place] [phone] Monroe Choi MD 85 [facility] [place] [address] [place] [address] Social History Tobacco Use Types Packs/Day Years [...] Office Visit [facility] Neurology [address] [address] Suman Dudley MD [address] [address] [place] [address] documented as of this encounter Visit Diagnoses Not on filedocumented in this encounter Care Teams Hammer Fitter Relationship Specialty Start Date End Date Pcp, No [address] [place] [address] PCP - General 11/26/18 03/09/20 Adeline Guo MD [address] [place] [address] PCP - General Internal Medicine 03/10/20 10/13/24 Curt Wiseman MD [address] [place] [address] PCP - General Family Medicine 10/14/24 Feliciano Evans MD [address] [place] [address] Referring Provider 10/28/20 Yara Harding MD [address] [place] [address] Neurology 03/20/[address] [place] [address] Neurology Neurology 06/07/22 documented as of this encounter
--- OUTSIDE RECORDS SUMMARY | 2025-05-30 11:04 | XMS_ITS | Encounter Summary ---
Author Organization [facility] Address [address] [place] [address] Care Team Providers Care Physician Vice President Name Role Phone Curt Wiseman MD Primary Care Provider +- [phone] Reason for Visit * Reason Onset Date Comments Medication 05/07/2025 Encounter Details Date Type Department Care Team (Late st Contact Info) Description 05/07/2025 Telephone [facility] Cardiology [address] [place] [phone] Feliciano Evans MD [address] [place] [address],[address] [address] Social History Tobacco Use Types Packs/Day Years [...] as of this encounter Progress Notes * Denise Leslie RN - 05/08/2025 9:41 AM EDT I spoke to Ana Cristina. She questioned if the patient should take the Aricept at night. I advised her to contact the prescriber of the medication regarding when he should take the medication. She voiced understanding. * Adriano Rodriguez - 05/08/2025 9:31 AM EDT Patients spouse calling again to speak with Nurse Denise. * Denise Leslie RN - 05/08/2025 9:05 AM EDT I spoke to Ana Cristina, the patient's spouse and informed her of the med interaction between Metoprololand Aricept. She is aware the patient should monitor his BP and HR. * Denise Leslie RN - 05/07/2025 11:33 AM EDT I utilized the [employer] Drug Interaction tool. There was one interaction identified: 1) Aricept and Metoprolol Risk Rating C: Monitor therapy Summary Bradycardia-Causing Agents may increase bradycardic effects of Bradycardia-Causing Agents. Acetylcholinesterase Inhibitors may increase bradycardic effects of Beta-Blockers. Patient Management Monitor for increased bradycardia, syncope, and/or hypotension in patients receiving concomitant therapy with beta-blockers and an acetylcholinesterase inhibitor. May the patient trial Aricept as prescribed by Neurology and monitor his BP/HR? * Mercy Johnson - 05/07/2025 11:04 AM EDT Patient's Ana Cristina called and states that the patient went to his neurologist, and he was prescribed Aricept. Ana Cristina wants to know if this medication will interfere with any of the patient's other cardiac medications. She would like a call back at [phone]. documented in this encounter Plan of Treatment Upcoming Encounters Date Type Department Care Team (Late st Contact Info) Description 09/09/2025 9:10 AM EST Office Visit [facility] [address] [place] [address] [place] [address] [place] [address] Drake Lo NP [address] [place] [address] Dr Garcia [address] [place] [address] documented as of this encounter Visit Diagnoses Not on filedocumented in this encounter Discontinued Medications Medication Sig Discontinue Reason Start Date End Da te amLODIPine (NORVASC) 5 mg tabletIndications:Essenti al hypertension Take 1 tablet (5 mg total) by mouth 1 (one) time each day. Duplicate order 07/22/2024 05/07/2025 documented as of this encounter Historical Medications * This list may reflect changes made after this encounter. donepeziL (ARICEPT) 5 mg tablet Take 1 tablet (5 mg total) by mouth 1 (one) time each day. added in this encounter Care Teams Physician Vice President Relationship Specialty Start Date End Date Curt Wiseman MD PCP - General Family Medicine 07/22/24 documented as of this encounter
--- OUTSIDE RECORDS SUMMARY | 2025-05-30 11:05 | XMS_ITS | Encounter Summary ---
Author Organization [facility] Address [address] [place] [address] Care Team Providers Care Mechanic Recovery Name Role Phone Curt Wiseman MD Primary Care Provider [phone] Reason for Visit * Reason Comments Appointment Encounter Details Date Type Department Care Team ([facility] st Contact Info) Description 04/16/2021 Telephone [facility] [address] [phone] Austin Sethi MD [address] [facility] [address] [place] [id number] Appointment Social History Tobacco Use Types Packs/Day [...] Phone 05/03/21 3:30 PM Austin Sethi MD [facility] [address] * Telephone Encounter [...] Phone 04/20/21 2:15 PM Austin Sethi MD [facility] [address] * Telephone Encounter [...] on filedocumented in this encounter Care Teams Mechanic Recovery Relationship Specialty Start Date End Date Curt Wiseman MD [address] [address] PCP - General Family Medicine 02/10/21 documented as of this encounter
--- OUTSIDE RECORDS SUMMARY | 2025-05-30 11:05 | XMS_ITS | Clinical Summary ---
Author Organization [employer] Address [address] [facility] [address] [place] [address] Care Team Providers Care Lpn Medical Assistant Name Role Phone Unavailable Primary Care [...] next dental appointment. 4 capsule 5 Active Active Problems Problem Noted Date Diagnosed Date Gastroesophageal reflux disease 02/20/2025 Traumatic brain injury with loss of consciousnes s 02/20/2025 Encounters Date Type Department Care Team Description 05/14/2025 9:30 AM EDT Office Visit [facility] [address] [place] [address] Edel Benton DDS 04/11/2025 2:00 PM EDT Office Visit [facility] [address] [place] [address] Andre Bang 03/11/2025 Telephone [facility] [address] [place] [address] Alex Burns DMD returning call placed yesterday 03/10 dental 03/10/2025 Telephone [facility] [address] [place] [address] Andre Bang from Last 3 Months Social [...] 06/11/2025 2:00 PM EST Office Visit [facility] [address] [place] [address] Andre Bang [address] [place] [address] 08/27/2025 1:00 PM EST Office Visit [facility] [address] [place] [address] Corinne Pedroza Health Maintenance Due Date Last [...] Dental Oral Exam 02/21/2024 08/22/2023 COVID-19 Vaccine ( season) 2025 04/16/2025, 04/12/2024, 05/17/2023, Additional history exists Dental Prophylaxis 08/24/2025 02/20/2025, 08/22/2023 Dental X-Ray: Bitewings 02/21/2026 02/21/20 25, 11/17/2023, 08/22/2023 Tobacco Screening 05/14/2026 05/14/2025 Dental X-Ray: Full Mouth 10/05/2026 10/04/2023 DTaP/Tdap/Td Vaccines (4 - Td or Tdap) 04/01/2034 04/01/2024, 10/13/2022, 05/05/2011 Zoster Vaccines Completed 11/25/2021, 05/07, 02/06/2012 Pneumococcal Vaccine: 50+ Years Completed 12/08/2021, 07/22/2011, 01/07/2002 Influenza Vaccine Completed 04/03/2025, , 04/07/2024, Additional history exists HIB Vaccines Aged Out [...] Name Priority Date/Time Associated Diagnosis Comments 31 CUSTOM FABRICATED ABUTMENT - INCLUDES PLACEMENT Routine 05/14/2025 9:30 AM EDT RE-EVAL - POST-OP OFFICE VISIT Routine 04/11/2025 2:00 PM EDT PROPHYLAXIS - ADULT Routine 02/20/2025 1 :00 PM EDT BITEWINGS - 4 RADIOGRAPHIC IMAGES Routine 02/20/2025 1:00 PM EDT PANORAMIC RADIOGRAPHIC IMAGE Routine 10/04/2023 1:00 PM EST PERIODIC ORAL EVALUATION - ESTABLISHED PATIENT Routine 08/22/2023 2:00 PM EST from Last 3 Months or Most Recently Relevant to Health Maintenance Insurance DENTAL - DQ [facility]
== END 2025-05-30 10:35 | disposition home or self-care (01) ==
LOC: HO.PMC 09:48
PROVIDERS: PCP Family Medicine; Visit Provider Internal Medicine
DX: M25.561 Pain in right knee (principal); Z96.651 Presence of right artificial knee joint
CPT/HCPCS: 99214

== ENCOUNTER 2025-05-30 09:47 | Outpatient (REF) | payer MEDICARE, SELFPAY ==
--- NOTE | ~2025-05-30 | XR_ITS ---
EXAMINATION: XR KNEE AP STANDING CLINICAL INFORMATION: M25.569 - Pain in unspecified knee COMPARISON: X-ray 01/15/2025 TECHNIQUE: AP bilateral standing view of the knees was obtained. FINDINGS: Right knee: Right total knee arthroplasty in expected position and alignment. No acute periprosthetic fracture. No suspicious perihardware lucencies. No suspicious bony lesions. Left knee: No acute osseous findings. Medial and lateral compartment joint spaces are maintained. Possible faint chondrocalcinosis.: XR/XR knee standing BI IMPRESSION: Right knee: Status post right total knee arthroplasty. No evidence of acute fracture or findings to suggest hardware complications. Electronically signed by: Austen Coyne MD 05/30/2025 02:58 PM EDT
== END 2025-05-30 09:48 | disposition home or self-care (01) ==
LOC: HO.XRAY 09:47
PROVIDERS: PCP Family Medicine; Visit Provider Internal Medicine
DX: M25.561 Pain in right knee (principal); M25.552 Pain in left hip; Z96.651 Presence of right artificial knee joint
CPT/HCPCS: 73565; 99212

== ENCOUNTER → 2025-05-30 10:49 | Outpatient (BNV) | payer MEDICARE, SELFPAY | PROVIDERS: PCP Family Medicine; Visit Provider Radiology Diagnostic Ultrasound | DX: M25.561 Pain in right knee (principal); Z96.651 Presence of right artificial knee joint | CPT/HCPCS: 73565 ==

== ENCOUNTER 2025-06-09 13:04 | Outpatient (AMB) | payer MEDICARE, SELFPAY ==
[2025-06-09 13:08] VITALS: BP 142/82; PULSE 81; RESP 16; O2SAT 93; BMI 31.3
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
== END 2025-06-09 13:55 | disposition home or self-care (01) ==
LOC: HO.PMC 13:06
PROVIDERS: PCP Family Medicine; Visit Provider Internal Medicine
DX: M25.561 Pain in right knee (principal)
CPT/HCPCS: 64454; 99213

== ENCOUNTER → 2025-06-09 13:04 | Outpatient (BNVA) | payer MEDICARE, SELFPAY | PROVIDERS: PCP Family Medicine; Visit Provider Internal Medicine | DX: Z71.2 Person consulting for explanation of examination or test findings (principal); M25.561 Pain in right knee | CPT/HCPCS: 64454; 99212; J0665; J3301 ==